=== PATIENT | female | born 1940 | race Caucasian/White ===

== ENCOUNTER 2018-04-06 10:05 | Inpatient (IN) ==
[2018-04-06] MEDS ORDERED: 0.9 % Sodium Chloride 1,000 ML IVC ONE (10:15)
[2018-04-06 10:49] LABS: Hematocrit 33.8 % (35.3-44.9); Hemoglobin 11.3 g/dL (11.5-15.4); Mean Corpuscular HGB Conc 33.4 g/dL (31.6-35.5); Mean Corpuscular Hemoglobin 29.7 pg (28.0-33.3); Mean Corpuscular Volume 88.9 fL (83.0-100.0); Mean Platelet Volume 11.9 fL (9.4-12.4); Platelet Count 208 K/mcL (140-400); Red Cell Distribution Width 12.8 % (11.5-14.5)
[2018-04-06 10:51] LABS: VBG HCO3 21 mEq/L (21-27); VBG PCO2 33 mmHg (41-51); VBG PH 7.41 pH Units (7.32-7.42); VBG PO2 84 mmHg (25-50)
[2018-04-06 10:53] LABS: Estimated Average Glucose 177 mg/dl; Hemoglobin A1C 7.8 %
[2018-04-06] MEDS ORDERED: *HR* HYDROcodone/Acet 5/325 mg TABLET PO ONE (10:54)
[2018-04-06 11:18] LABS: Lymphocytes # 0.6 K/mcL (0.6-4.6); Neutrophils # 9.7 K/mcL (1.6-8.9); Platelet Estimate Normal (Normal)
--- NOTE | 2018-04-06 11:39 | Emergency Department Note ---
Disposition Clinical Impression: Altered mental status, Left shoulder pain, Shoulder subluxation, left, Arthritis of right knee Disposition: Admitted As Inpatient Referrals: NONE,PCP [Primary Care Provider] - Forms: ED Satisfaction Letter, Work/School Release General Adult HPI - General Chief complaint: ED General Medical Stated complaint: Shoulder Pain Time Seen by Provider: 04/06/18 10:13 Source: patient, EMS Limitations: no limitations - History of Present Illness Pain Scale: 10 - Related Data Home Medications Medication Instructions Recorded Confirmed Albuterol Sulfate [Ventolin Hfa] 2 puff IH Q4H PRN 04/06/18 04/06/18 Budesonide/Formoterol 160/4.5 2 puff PO BID 04/06/18 04/06/18 [Symbicort 160/4.5] Esomeprazole Magnesium [Nexium] 40 mg PO DAILY 04/06/18 04/06/18 Insulin ASPART [NovoLOG] 0 unit SQ AD 04/06/18 04/06/18 Lisinopril/Hydrochlorothiazide 1 tab PO DAILY 04/06/18 04/06/18 [Zestoretic 20-25 mg Tablet] Meloxicam [Meloxicam] 15 mg PO DAILY 04/06/18 04/06/18 Methyl Salicylate/Menthol 1 patch TP DAILY PRN MDD N 04/06/18 04/06/18 [Salonpas Patch] Montelukast [Singulair] 10 mg PO DAILY 04/06/18 04/06/18 Multivitamin [One Daily Essential] 1 tab PO DAILY 04/06/18 04/06/18 Tramadol HCl [Ultram] 50 mg PO DAILY 04/06/18 04/06/18 predniSONE [PredniSONE] 60 mg PO DAILY 04/06/18 04/06/18 Allergies Allergy/AdvReac Type Severity Reaction Status Date / Time No Known Allergies Allergy Verified 04/06/18 10:17 Past Medical History - Past Medical History Medical history: Reports: arthritis, asthma, diabetes, hypertension Psychiatric history: Reports: no psych history - Social History Smoking Status: Never smoker Smokeless Tobacco Status: No Alcohol use: Reports: none Drug use: Reports: none Physical Exam - General Limitations: no limitations General appearance: alert, in no apparent distress Course Vital Signs Temperature 99.4 F 04/06/18 10:11 Pulse Rate 115 04/06/18 10:11 Respiratory Rate 18 04/06/18 10:11 Blood Pressure 124/79 04/06/18 10:11 O2 Sat by Pulse Oximetry 97 04/06/18 10:11 Temperature 99.4 F 04/06/18 10:11 Pulse Rate 114 04/06/18 13:37 Respiratory Rate 16 04/06/18 13:37 Blood Pressure 136/73 04/06/18 13:37 O2 Sat by Pulse Oximetry 97 04/06/18 13:37 Oxygen Delivery Oxygen Delivery Room Air Medical Decision Making - Lab Data Result diagrams: 04/06/18 10:31 04/06/18 10:31 Lab Results 04/06/18 04/06/18 04/06/18 Range/Units 10:31 10: 10:31 WBC 10.3 (4.3-11.1) K/mcL RBC 3.80 L (3.82-4.97) M/mcL Hgb 11.3 L (11.5-15.4) g/dL Hct 33.8 L (35.3-44.9) % MCV 88.9 (83.0-100.0) fL MCH 29.7 (28.0-33.3) pg MCHC 33.4 (31.6-35.5) g/dL RDW 12.8 (11.5-14.5) % Plt Count 208 (140-400) K/mcL MPV 11.9 (9.4-12.4) fL Immature Gran % Test Not Performed Seg Neutrophils % 76.0 % Band Neutrophils % 18.0 H (0-4) % Lymphocytes % 6.0 % Monocytes % Test Not Performed Eosinophils % Test Not Performed Basophils % Test Not Performed Neutrophils # 9.7 H (1.6-8.9) K/mcL Lymphocytes # 0.6 (0.6-4.6) K/mcL Monocytes # Test Not Performed Eosinophils # Test Not Performed Basophils # Test Not Performed Platelet Estimate Normal (Normal) VBG pH (7.32-7.42) pH Units VBG pCO2 (41-51) mmHg VBG pO2 (25-50) mmHg VBG HCO3 (21-27) mEq/L Sodium (136-145) mEq/L Potassium (3.5-5.1) mEq/L Chloride (98-107) mEq/L Carbon Dioxide (23-29) mEq/L BUN (8-23) mg/dL Creatinine (0.60-1.20) mg/dL Est GFR ( Amer) (> 60) Est GFR (Non-Af Amer) (> 60) BUN/Creatinine Ratio (6-26) Glucose (70-105) mg/dL Est Mean Plasma Glucose 177 mg/dl Hemoglobin A1c 7.8 H ( - 5.6) % Calculated Osmolality (280-300) Calcium (8.6-10.3) mg/dL Total Bilirubin (0.3-1.0) mg/dL AST (13-39) Units/L ALT (7-52) Units/L Alkaline Phosphatase (34-104) Units/L Ammonia (16-53) mcmol/L Troponin I (< 0.04) ng/mL Serum Total Protein (6.4-8.9) g/dL Albumin (3.5-5.7) g/dL Globulin (2.4-3.5) g/dL Albumin/Globulin Ratio (1.1-2.2) Beta-Hydroxybutyric Acd 0.17 (0.02-0.27) mmol/L TSH (0.340-5.600) mcIU/mL Ur Specimen Adequacy Urine Color (Yellow) Urine Clarity (Clear) Urine pH (5.0-8.0) pH Units Ur Specific Garrison (1.010-1.025) Urine Protein (Neg-Trace) mg/dL Urine Glucose (UA) (Normal) mg/dL Urine Ketones (Negative) mg/dL Urine Blood (Negative) Urine Nitrite (Negative) Urine Bilirubin (Negative) Urine Urobilinogen (Normal) mg/dL Ur Leukocyte Esterase (Negative) Urine Microscopic RBC (0-3) per hpf Urine Microscopic WBC (0-3) per hpf Ur Squamous Epith Cells (None-Few) per lpf Urine Bacteria (None-Few) per hpf Hyaline Casts Ur Culture Indicated? (NO) Urine Opiates Screen (Djrvbu=908) ng/mL Ur Barbiturates Screen (Qqanbq=718) ng/mL Ur Phencyclidine Scrn (Cutoff=25) ng/mL Ur Amphetamines Screen (Wbtync=4654) ng/mL U Benzodiazepines Scrn (Vcyrwo=633) ng/mL Urine Cocaine Screen (Cutoff= 300) ng/mL U Marijuana (THC) Screen (Cutoff = 50) ng/mL Ur Drug Screen Interp Ethyl Alcohol (Less than 10) mg/dL 04/06/18 04/06/18 04/06/18 Range/Units 10:31 10:31 10:45 WBC (4.3-11.1) K/mcL RBC (3.82-4.97) M/mcL Hgb (11.5-15.4) g/dL Hct (35.3-44.9) % MCV (83.0-100.0) fL MCH (28.0-33.3) pg MCHC (31.6-35.5) g/dL RDW (11.5-14.5) % Plt Count (140-400) K/mcL MPV (9.4-12.4) fL Immature Gran % Seg Neutrophils % % Band Neutrophils % (0-4) % Lymphocytes % % Monocytes % Eosinophils % Basophils % Neutrophils # (1.6-8.9) K/mcL Lymphocytes # (0.6-4.6) K/mcL Monocytes # Eosinophils # Basophils # Platelet Estimate (Normal) VBG pH 7.41 (7.32-7.42) pH Units VBG pCO2 33 L (41-51) mmHg VBG pO2 84 H (25-50) mmHg VBG HCO3 21 (21-27) mEq/L Sodium 128 L (136-145) mEq/L Potassium 3.6 (3.5-5.1) mEq/L Chloride 93 L (98-107) mEq/L Carbon Dioxide 21 L (23-29) mEq/L BUN 33 H (8-23) mg/dL Creatinine 0.88 (0.60-1.20) mg/dL Est GFR ( Amer) > 60 (> 60) Est GFR (Non-Af Amer) > 60 (> 60) BUN/Creatinine Ratio 38 H (6-26) Glucose 224 H (70-105) mg/dL Est Mean Plasma Glucose mg/dl Hemoglobin A1c ( - 5.6) % Calculated Osmolality 280 (280-300) Calcium 9.1 (8.6-10.3) mg/dL Total Bilirubin 0.5 (0.3-1.0) mg/dL AST 18 (13-39) Units/L ALT 15 (7-52) Units/L Alkaline Phosphatase 108 H (34-104) Units/L Ammonia 28 (16-53) mcmol/L Troponin I < 0.03 (< 0.04) ng/mL Serum Total Protein 6.7 (6.4-8.9) g/dL Albumin 3.1 L (3.5-5.7) g/dL Globulin 3.6 H (2.4-3.5) g/dL Albumin/Globulin Ratio 0.9 L (1.1-2.2) Beta-Hydroxybutyric Acd (0.02-0.27) mmol/L TSH 0.248 L (0.340-5.600) mcIU/mL Ur Specimen Adequacy Urine Color (Yellow) Urine Clarity (Clear) Urine pH (5.0-8.0) pH Units Ur Specific Garrison (1.010-1.025) Urine Protein (Neg-Trace) mg/dL Urine Glucose (UA) (Normal) mg/dL Urine Ketones (Negative) mg/dL Urine Blood (Negative) Urine Nitrite (Negative) Urine Bilirubin (Negative) Urine Urobilinogen (Normal) mg/dL Ur Leukocyte Esterase (Negative) Urine Microscopic RBC (0-3) per hpf Urine Microscopic WBC (0-3) per hpf Ur Squamous Epith Cells (None-Few) per lpf Urine Bacteria (None-Few) per hpf Hyaline Casts Ur Culture Indicated? (NO) Urine Opiates Screen (Upfxyp=083) ng/mL Ur Barbiturates Screen (Rddylj=154) ng/mL Ur Phencyclidine Scrn (Cutoff=25) ng/mL Ur Amphetamines Screen (Ctztyp=4523) ng/mL U Benzodiazepines Scrn (Aaqhuo=023) ng/mL Urine Cocaine Screen (Cutoff= 300) ng/mL U Marijuana (THC) Screen (Cutoff = 50) ng/mL Ur Drug Screen Interp Ethyl Alcohol < 10 (Less than 10) mg/dL 04/06/18 04/06/18 Range/Units 11:54 11:55 WBC (4.3-11.1) K/mcL RBC (3.82-4.97) M/mcL Hgb (11.5-15.4) g/dL Hct (35.3-44.9) % MCV (83.0-100.0) fL MCH (28.0-33.3) pg MCHC (31.6-35.5) g/dL RDW (11.5-14.5) % Plt Count (140-400) K/mcL MPV (9.4-12.4) fL Immature Gran % Seg Neutrophils % % Band Neutrophils % (0-4) % Lymphocytes % % Monocytes % Eosinophils % Basophils % Neutrophils # (1.6-8.9) K/mcL Lymphocytes # (0.6-4.6) K/mcL Monocytes # Eosinophils # Basophils # Platelet Estimate (Normal) VBG pH (7.32-7.42) pH Units VBG pCO2 (41-51) mmHg VBG pO2 (25-50) mmHg VBG HCO3 (21-27) mEq/L Sodium (136-145) mEq/L Potassium (3.5-5.1) mEq/L Chloride (98-107) mEq/L Carbon Dioxide (23-29) mEq/L BUN (8-23) mg/dL Creatinine (0.60-1.20) mg/dL Est GFR ( Amer) (> 60) Est GFR (Non-Af Amer) (> 60) BUN/Creatinine Ratio (6-26) Glucose (70-105) mg/dL Est Mean Plasma Glucose mg/dl Hemoglobin A1c ( - 5.6) % Calculated Osmolality (280-300) Calcium (8.6-10.3) mg/dL Total Bilirubin (0.3-1.0) mg/dL AST (13-39) Units/L ALT (7-52) Units/L Alkaline Phosphatase (34-104) Units/L Ammonia (16-53) mcmol/L Troponin I (< 0.04) ng/mL Serum Total Protein (6.4-8.9) g/dL Albumin (3.5-5.7) g/dL Globulin (2.4-3.5) g/dL Albumin/Globulin Ratio (1.1-2.2) Beta-Hydroxybutyric Acd (0.02-0.27) mmol/L TSH (0.340-5.600) mcIU/mL Ur Specimen Adequacy See below A Urine Color Yellow (Yellow) Urine Clarity Clear (Clear) Urine pH 5.5 (5.0-8.0) pH Units Ur Specific Garrison 1.014 (1.010-1.025) Urine Protein 30 H (Neg-Trace) mg/dL Urine Glucose (UA) 250 H (Normal) mg/dL Urine Ketones Negative (Negative) mg/dL Urine Blood Small H (Negative) Urine Nitrite Negative (Negative) Urine Bilirubin Negative (Negative) Urine Urobilinogen Normal (Normal) mg/dL Ur Leukocyte Esterase Negative (Negative) Urine Microscopic RBC 5-15 H (0-3) per hpf Urine Microscopic WBC 0-3 (0-3) per hpf Ur Squamous Epith Cells Many H (None-Few) per lpf Urine Bacteria None Seen (None-Few) per hpf Hyaline Casts Test Not Performed Ur Culture Indicated? NO (NO) Urine Opiates Screen Positive H (Grzlpe=922) ng/mL Ur Barbiturates Screen Negative (Wcoobw=235) ng/mL Ur Phencyclidine Scrn Negative (Cutoff=25) ng/mL Ur Amphetamines Screen Negative (Mihrcb=0104) ng/mL U Benzodiazepines Scrn Negative (Tveyjy=919) ng/mL Urine Cocaine Screen Negative (Cutoff= 300) ng/mL U Marijuana (THC) Screen Negative (Cutoff = 50) ng/mL Ur Drug Screen Interp See Below Ethyl Alcohol (Less than 10) mg/dL Attestation Statement - Attestation Attestation: Resident Attestation: I examined this patient and my medical decision making was reviewed with the Resident Physician. I agree with the documented findings, disposition and treatment plan as described except to the extent set forth below. We independently had [id number] contact with the patient. Resident Dr. Jameson. Past medical history of diabetes, hypertension, arthritis, asthma presenting today for evaluation of multiple complaints. Patient family has complaints of intermittent altered mental status with the patient rambling on about sometimes noncoherent sentences. The patient will have her episodes resolve and seemed to be doing a lot better. The patient was seen yesterday at [facility] where she was evaluated secondary to left shoulder and right knee pain. The patient has significant arthritis which she has been evaluated and treated for. She states that she wanted to get some yard work done and was pulling a lot of weeds. Secondary to pain that she typically has in her right shoulder and left knee she was using her left shoulder and right knee to compensate. The patient states that she felt great during the day and during the activities but shortly after began having significant amounts of pain. She has requested multiple doses of pain medication while in the emergency department and it relates to fluctuations in pain from the left arm to the right knee. She complains of no other episodes of pain. She has not had fevers or chills and she has not been breaking out in sweats. At this time there is concern for an intra-articular foreign body within the right knee. Unknown how long this is been there. Likely contributing to her overall pain symptoms. Left arm has a subluxation which is unknown the chronicity. Patient does have significant muscle spasm to the left upper extremity. On manipulation with distracting force as well as external rotation she has worsening spasm of the biceps muscle causing pain to radiate down into her fingers. The patient did undergo blood work which does show a mild left shift of neutrophils. She has been on steroids. The patient's blood work otherwise shows a mild hyponatremia as well as an elevated BUN/creatinine ratio at 38. TSH of 0.248. Urinalysis does show small amounts of blood but this was a catheter sample. Dr. Jameson did discuss with orthopedics in regards to the knee foreign body as well as left shoulder subluxation and significant arthritis. Patient will be evaluated by orthopedics within the hospital. I have discussed with both patient and family at bedside. All questions answered at this time.
[2018-04-06 11:43] LABS: Alanine Aminotransferase 15 Units/L (7-52); Albumin 3.1 g/dL (3.5-5.7); Albumin/Globulin Ratio 0.9 (1.1-2.2); Alkaline Phosphatase 108 Units/L (34-104); Aspartate Amino Transferase 18 Units/L (13-39); BUN/Creatinine Ratio 38 (6-26); Bilirubin,Total 0.5 mg/dL (0.3-1.0); Blood Urea Nitrogen 33 mg/dL (8-23); Calcium 9.1 mg/dL (8.6-10.3); Carbon Dioxide 21 mEq/L (23-29); Chloride 93 mEq/L (98-107); Ethanol < 10 mg/dL (Less than 10); Globulin 3.6 g/dL (2.4-3.5); Glucose 224 mg/dL (70-105); Osmolality,Calculated 280 (280-300); Potassium 3.6 mEq/L (3.5-5.1); Sodium 128 mEq/L (136-145); Total Protein 6.7 g/dL (6.4-8.9); Troponin I < 0.03 ng/mL (< 0.04); eGFR For Non-African Americans > 60 (> 60)
[2018-04-06 11:57] LABS: Thyroid Stimulating Hormone 0.248 mcIU/mL (0.340-5.600)
[2018-04-06 12:06] LABS: Bilirubin,Urine Negative (Negative); Blood,Urine Small (Negative); Color,Urine Yellow (Yellow); Glucose,Urine (UA) 250 mg/dL (Normal); Ketones,Urine Negative (Negative); Leukocyte Esterase,Urine Negative (Negative); Nitrite,Urine Negative (Negative); PH,Urine 5.5 pH Units (5.0-8.0); Protein,Urine 30 mg/dL (Neg-Trace); Specific Gravity,Urine 1.014 (1.010-1.025); Urobilinogen,Urine Normal (Normal)
[2018-04-06 12:08] LABS: Bacteria,Urine None Seen per hpf (None-Few); Squamous Epithelial Cell,Urine Many per lpf (None-Few); WBC,Urine 0-3 per hpf (0-3)
[2018-04-06 12:10] LABS: Clarity,Urine Clear (Clear)
[2018-04-06 12:26] LABS: Amphetamine Screen,Urine Negative ng/mL (Cutoff=1000); Barbiturate Screen,Urine Negative ng/mL (Cutoff=200); Benzodiazepines Screen,Urine Negative ng/mL (Cutoff=200); Cannabinoid Screen,Urine Negative ng/mL (Cutoff = 50); Cocaine Screen,Urine Negative ng/mL (Cutoff= 300); Opiate Screen,Urine Positive ng/mL (Cutoff=300); Phencyclidine Screen,Urine Negative ng/mL (Cutoff=25)
[2018-04-06] MEDS ORDERED: *HR* FentaNYL (PF) 100 MCG/2 ML VIAL IVP ONE ×2 (12:42→15:41)
[2018-04-06] MEDS ORDERED: *HR* Morphine 2 MG/ML SYRINGE IVP ONE (13:28)
--- NOTE | 2018-04-06 13:46 | Emergency Department Note ---
Disposition Clinical Impression: Arthritis of right knee Altered mental status Qualifiers: Altered mental status type: unspecified Qualified Code(s): R41.82 - Altered mental status, unspecified Left shoulder pain Qualifiers: Chronicity: unspecified Qualified Code(s): M25.512 - Pain in left shoulder Shoulder subluxation, left Qualifiers: Encounter type: initial encounter Qualified Code(s): S43.002A - Unspecified subluxation of left shoulder joint, initial encounter Disposition: Admitted As Inpatient Condition: Fair Forms: ED Satisfaction Letter, Work/School Release Altered Mental Status HPI - General Chief Complaint: ED General Medical Stated Complaint: Shoulder Pain Time Seen by Provider: 04/06/18 10:13 Source: patient, EMS Mode of arrival: EMS Limitations: no limitations Nursing Notes Reviewed: Yes Vital Signs Reviewed: Yes - History of Present Illness HPI Narrative: 77-year-old female history of type 1 diabetes on an insulin pump who presents to the ER via EMS due to altered mental status. Report is that the patient was outside at the beginning of the week bleeding. She was using mostly her left arm. She was seen at another facility on Saturday where she was given prednisone. She took 4 days of that. She was brought in today for altered mental status. The patient is alert and oriented 3. She does require frequent redirection. She is repetitive in her statements as well. She reports pain to her left shoulder as well as her right knee. She denies any trauma. Reports she is "eaten up with arthritis" family at bedside reports that she has been confused at home and is usually self-sufficient. She has been to the point where she cannot walk on her own. No other complaints. MD complaint: altered mental status Onset (ago): day(s) Timing confirmed by: family member Context: other (Recent steroid use) Associated symptoms: Reports: nausea/vomiting (No vomiting), other (Left shoulder pain, right knee pain). Denies: chest pain, fever - Related Data Home Medications Medication Instructions Recorded Confirmed Albuterol Sulfate [Ventolin Hfa] 2 puff IH Q4H PRN 04/06/18 04/06/18 Budesonide/Formoterol 160/4.5 2 puff PO BID 04/06/18 04/06/18 [Symbicort 160/4.5] Esomeprazole Magnesium [Nexium] 40 mg PO DAILY 04/06/18 04/06/18 Insulin ASPART [NovoLOG] 0 unit SQ AD 04/06/18 04/06/18 Lisinopril/Hydrochlorothiazide 1 tab PO DAILY 04/06/18 04/06/18 [Zestoretic 20-25 mg Tablet] Meloxicam [Meloxicam] 15 mg PO DAILY 04/06/18 04/06/18 Methyl Salicylate/Menthol 1 patch TP DAILY PRN MDD N 04/06/18 04/06/18 [Salonpas Patch] Montelukast [Singulair] 10 mg PO DAILY 04/06/18 04/06/18 Multivitamin [One Daily Essential] 1 tab PO DAILY 04/06/18 04/06/18 Tramadol HCl [Ultram] 50 mg PO DAILY 04/06/18 04/06/18 predniSONE [PredniSONE] 60 mg PO DAILY 04/06/18 04/06/18 Allergies Allergy/AdvReac Type Severity Reaction Status Date / Time No Known Allergies Allergy Verified 04/06/18 10:17 All systems ED: reviewed and negative except as stated. Constitutional: Denies: fever Cardiovascular: Denies: chest pain Respiratory: Denies: dyspnea Gastrointestinal: Reports: nausea. Denies: abdominal pain, vomiting Genitourinary: Denies: dysuria, hematuria Musculoskeletal: Reports: other (Left shoulder pain, right knee pain) Neurological: Denies: numbness Past Medical History - Past Medical History Attestation: Yes The following information was validated with the patient. Source: patient, obtained from family Medical history: Reports: arthritis, asthma, diabetes, hypertension Psychiatric history: Reports: no psych history - Social History Smoking Status: Never smoker Smokeless Tobacco Status: No Alcohol use: Reports: none Drug use: Reports: none Physical Exam - General Limitations: no limitations General appearance: alert, in no apparent distress - Head Head exam: atraumatic, normocephalic - Eye Eye exam: Present: normal appearance - ENT ENT exam: normal exam - Neck Neck exam: Present: normal inspection - Chest Chest inspection: Present: normal inspection, symmetric chest wall rise - Respiratory Respiratory exam: Present: normal lung sounds bilaterally - Cardiovascular Cardiovascular exam: Present: normal rhythm, tachycardia, normal heart sounds - Abdominal Exam Abdominal exam: Present: soft, Non-Tender. Absent: tenderness, distention, rigidity - Extremities Exam Extremities exam: Present: normal inspection - Expanded Upper Extremity Exam Shoulder exam: Present: normal inspection, tenderness (There is tenderness to the anterior and lateral aspects of the left shoulder. There are no overlying soft tissue changes or erythema.). Absent: swelling, erythema Arm exam: Present: normal inspection Elbow exam: Present: normal inspection Forearm/Wrist exam: Present: normal inspection, full ROM Hand exam: Present: normal inspection, full ROM - Expanded Lower Extremity Exam Hip/Pelvis exam: Present: normal inspection, full ROM Upper leg exam: Present: normal inspection, full ROM Knee exam: Present: normal inspection, tenderness (There is diffuse tenderness to the right knee without overlying soft tissue changes.) Lower leg exam: Present: normal inspection Ankle exam: Present: normal inspection, full ROM Foot/toe exam: Present: normal inspection, full ROM - Neurological Exam Neurological exam: Present: alert, oriented X3, other (GCS 15. No focal deficits. She does not move her left shoulder secondary to pain. Right knee is limited in flexion and extension.) - Skin Skin exam: Present: warm, dry Course Course Narrative: Patient seen and examined. Vital signs reviewed. DKA versus steroid psychosis or other etiology for Ultram mental status. She does have repetitive questioning and statements here. Plan for head CT, EKG, chest x-ray, labs to evaluate for DKA, urinalysis, imaging of the right knee. - Reevaluation(s) Reevaluation #1: Discussed results of imaging labs with the patient and family present. No improvement with pain after oral and IV analgesics. Patient ordered morphine for intractable pain. Also discussed orthopedic recommendations and that she would be admitted. Patient and family in agreement. - Consultations Consultation #1: I spoke with the on-call orthopedic surgeon. Discussed the patient's history as well as imaging and concerns. They are agreeable to see the patient in consultation. Vital Signs Temperature 99.4 F 04/06/18 10:11 Pulse Rate 115 04/06/18 10:11 Respiratory Rate 18 04/06/18 10:11 Blood Pressure 124/79 04/06/18 10:11 O2 Sat by Pulse Oximetry 97 04/06/18 10:11 Temperature 99.4 F 04/06/18 10:11 Pulse Rate 114 04/06/18 13:37 Respiratory Rate 16 04/06/18 13:37 Blood Pressure 136/73 04/06/18 13:37 O2 Sat by Pulse Oximetry 97 04/06/18 13:37 Oxygen Delivery Oxygen Delivery Room Air Altered Mental Status - MDM Narrative Medical decision making narrative: 77-year-old female presenting due to altered mental status, left shoulder pain and right knee pain. She is alert and oriented 3. She does require frequent redirection. She is not in DKA. Potential etiologies would include steroid psychosis with recent prednisone use. She demonstrates severe arthritis of her left shoulder and right knee. She does have subluxation and effusion of her left shoulder felt to be more consistent with overuse from her recent weeding in her garden. There are no overlying skin changes, fevers, leukocytosis. Right knee has a loose body. Case discussed with orthopedics. Patient given IV fluids, multiple doses of pain medication. Admitted to the hospitalist service. - Lab Data Lab results reviewed: Yes I reviewed the patient's lab results. Result diagrams: 04/06/18 10:31 04/06/18 10:31 Lab Results 04/06/18 04/06/18 04/06/18 Range/Units 10:31 10:31 10:31 WBC 10.3 (4.3-11.1) K/mcL RBC 3.80 L (3.82-4.97) M/mcL Hgb 11.3 L (11.5-15.4) g/dL Hct 33.8 L (35.3-44.9) % MCV 88.9 (83.0-100.0) fL MCH 29.7 (28.0-33.3) pg MCHC 33.4 (31.6-35.5) g/dL RDW 12.8 (11.5-14.5) % Plt Count 208 (140-400) K/mcL MPV 11.9 (9.4-12.4) fL Immature Gran % Test Not Performed Seg Neutrophils % 76.0 % Band Neutrophils % 18.0 H (0-4) % Lymphocytes % 6.0 % Monocytes % Test Not Performed Eosinophils % Test Not Performed Basophils % Test Not Performed Neutrophils # 9.7 H (1.6-8.9) K/mcL Lymphocytes # 0.6 (0.6-4.6) K/mcL Monocytes # Test Not Performed Eosinophils # Test Not Performed Basophils # Test Not Performed Platelet Estimate Normal (Normal) VBG pH (7.32-7.42) pH Units VBG pCO2 (41-51) mmHg VBG pO2 (25-50) mmHg VBG HCO3 (21-27) mEq/L Sodium (136-145) mEq/L Potassium (3.5-5.1) mEq/L Chloride (98-107) mEq/L Carbon Dioxide (23-29) mEq/L BUN (8-23) mg/dL Creatinine (0.60-1.20) mg/dL Est GFR ( Amer) (> 60) Est GFR (Non-Af Amer) (> 60) BUN/Creatinine Ratio (6-26) Glucose (70-105) mg/dL Est Mean Plasma Glucose 177 mg/dl Hemoglobin A1c 7.8 H ( - 5.6) % Calculated Osmolality (280-300) Calcium (8.6-10.3) mg/dL Total Bilirubin (0.3-1.0) mg/dL AST (13-39) Units/L ALT (7-52) Units/L Alkaline Phosphatase (34-104) Units/L Ammonia (16-53) mcmol/L Troponin I (< 0.04) ng/mL Serum Total Protein (6.4-8.9) g/dL Albumin (3.5-5.7) g/dL Globulin (2.4-3.5) g/dL Albumin/Globulin Ratio (1.1-2.2) Beta-Hydroxybutyric Acd 0.17 (0.02-0.27) mmol/L TSH (0.340-5.600) mcIU/mL Ur Specimen Adequacy Urine Color (Yellow) Urine Clarity (Clear) Urine pH (5.0-8.0) pH Units Ur Specific [place] (1.010-1.025) Urine Protein (Neg-Trace) mg/dL Urine Glucose (UA) (Normal) mg/dL Urine Ketones (Negative) mg/dL Urine Blood (Negative) Urine Nitrite (Negative) Urine Bilirubin (Negative) Urine Urobilinogen (Normal) mg/dL Ur Leukocyte Esterase (Negative) Urine Microscopic RBC (0-3) per hpf Urine Microscopic WBC (0-3) per hpf Ur Squamous Epith Cells (None-Few) per lpf Urine Bacteria (None-Few) per hpf Hyaline Casts Ur Culture Indicated? (NO) Urine Opiates Screen (Zzuldj=781) ng/mL Ur Barbiturates Screen (Oihhfq=487) ng/mL Ur Phencyclidine Scrn (Cutoff=25) ng/mL Ur Amphetamines Screen (Wkacko=6665) ng/mL U Benzodiazepines Scrn (Yzzdkq=950) ng/mL Urine Cocaine Screen (Cutoff= 300) ng/mL U Marijuana (THC) Screen (Cutoff = 50) ng/mL Ur Drug Screen Interp Ethyl Alcohol (Less than 10) mg/dL 04/06/18 04/06/18 04/06/18 Range/Units 10:31 10:31 10:45 WBC (4.3-11.1) K/mcL RBC (3.82-4.97) M/mcL Hgb (11.5-15.4) g/dL Hct (35.3-44.9) % MCV (83.0-100.0) fL MCH (28.0-33.3) pg MCHC (31.6-35.5) g/dL RDW (11.5-14.5) % Plt Count (140-400) K/mcL MPV (9.4-12.4) fL Immature Gran % Seg Neutrophils % % Band Neutrophils % (0-4) % Lymphocytes % % Monocytes % Eosinophils % Basophils % Neutrophils # (1.6-8.9) K/mcL Lymphocytes # (0.6-4.6) K/mcL Monocytes # Eosinophils # Basophils # Platelet Estimate (Normal) VBG pH 7.41 (7.32-7.42) pH Units VBG pCO2 33 L (41-51) mmHg VBG pO2 84 H (25-50) mmHg VBG HCO3 21 (21-27) mEq/L Sodium 128 L (136-145) mEq/L Potassium 3.6 (3.5-5.1) mEq/L Chloride 93 L (98-107) mEq/L Carbon Dioxide 21 L (23-29) mEq/L BUN 33 H (8-23) mg/dL Creatinine 0.88 (0.60-1.20) mg/dL Est GFR ( Amer) > 60 (> 60) Est GFR (Non-Af Amer) > 60 (> 60) BUN/Creatinine Ratio 38 H (6-26) Glucose 224 H (70-105) mg/dL Est Mean Plasma Glucose mg/dl Hemoglobin A1c ( - 5.6) % Calculated Osmolality 280 (280-300) Calcium 9.1 (8.6-10.3) mg/dL Total Bilirubin 0.5 (0.3-1.0) mg/dL AST 18 (13-39) Units/L ALT 15 (7-52) Units/L Alkaline Phosphatase 108 H (34-104) Units/L Ammonia 28 (16-53) mcmol/L Troponin I < 0.03 (< 0.04) ng/mL Serum Total Protein 6.7 (6.4-8.9) g/dL Albumin 3.1 L (3.5-5.7) g/dL Globulin 3.6 H (2.4-3.5) g/dL Albumin/Globulin Ratio 0.9 L (1.1-2.2) Beta-Hydroxybutyric Acd (0.02-0.27) mmol/L TSH 0.248 L (0.340-5.600) mcIU/mL Ur Specimen Adequacy Urine Color (Yellow) Urine Clarity (Clear) Urine pH (5.0-8.0) pH Units Ur Specific [place] (1.010-1.025) Urine Protein (Neg-Trace) mg/dL Urine Glucose (UA) (Normal) mg/dL Urine Ketones (Negative) mg/dL Urine Blood (Negative) Urine Nitrite (Negative) Urine Bilirubin (Negative) Urine Urobilinogen (Normal) mg/dL Ur Leukocyte Esterase (Negative) Urine Microscopic RBC (0-3) per hpf Urine Microscopic WBC (0-3) per hpf Ur Squamous Epith Cells (None-Few) per lpf Urine Bacteria (None-Few) per hpf Hyaline Casts Ur Culture Indicated? (NO) Urine Opiates Screen (Cdvqqv=694) ng/mL Ur Barbiturates Screen (Glxmuq=774) ng/mL Ur Phencyclidine Scrn (Cutoff=25) ng/mL Ur Amphetamines Screen (Axdago=5973) ng/mL U Benzodiazepines Scrn (Ecpyuq=454) ng/mL Urine Cocaine Screen (Cutoff= 300) ng/mL U Marijuana (THC) Screen (Cutoff = 50) ng/mL Ur Drug Screen Interp Ethyl Alcohol < 10 (Less than 10) mg/dL 04/06/18 04/06/18 Range/Units 11:54 11:55 WBC (4.3-11.1) K/mcL RBC (3.82-4.97) M/mcL Hgb (11.5-15.4) g/dL Hct (35.3-44.9) % MCV (83.0-100.0) fL MCH (28.0-33.3) pg MCHC (31.6-35.5) g/dL RDW (11.5-14.5) % Plt Count (140-400) K/mcL MPV (9.4-12.4) fL Immature Gran % Seg Neutrophils % % Band Neutrophils % (0-4) % Lymphocytes % % Monocytes % Eosinophils % Basophils % Neutrophils # (1.6-8.9) K/mcL Lymphocytes # (0.6-4.6) K/mcL Monocytes # Eosinophils # Basophils # Platelet Estimate (Normal) VBG pH (7.32-7.42) pH Units VBG pCO2 (41-51) mmHg VBG pO2 (25-50) mmHg VBG HCO3 (21-27) mEq/L Sodium (136-145) mEq/L Potassium (3.5-5.1) mEq/L Chloride (98-107) mEq/L Carbon Dioxide (23-29) mEq/L BUN (8-23) mg/dL Creatinine (0.60-1.20) mg/dL Est GFR ( Amer) (> 60) Est GFR (Non-Af Amer) (> 60) BUN/Creatinine Ratio (6-26) Glucose (70-105) mg/dL Est Mean Plasma Glucose mg/dl Hemoglobin A1c ( - 5.6) % Calculated Osmolality (280-300) Calcium (8.6-10.3) mg/dL Total Bilirubin (0.3-1.0) mg/dL AST (13-39) Units/L ALT (7-52) Units/L Alkaline Phosphatase (34-104) Units/L Ammonia (16-53) mcmol/L Troponin I (< 0.04) ng/mL Serum Total Protein (6.4-8.9) g/dL Albumin (3.5-5.7) g/dL Globulin (2.4-3.5) g/dL Albumin/Globulin Ratio (1.1-2.2) Beta-Hydroxybutyric Acd (0.02-0.27) mmol/L TSH (0.340-5.600) mcIU/mL Ur Specimen Adequacy See below A Urine Color Yellow (Yellow) Urine Clarity Clear (Clear) Urine pH 5.5 (5.0-8.0) pH Units Ur Specific [place] 1.014 (1.010-1.025) Urine Protein 30 H (Neg-Trace) mg/dL Urine Glucose (UA) 250 H (Normal) mg/dL Urine Ketones Negative (Negative) mg/dL Urine Blood Small H (Negative) Urine Nitrite Negative (Negative) Urine Bilirubin Negative (Negative) Urine Urobilinogen Normal (Normal) mg/dL Ur Leukocyte Esterase Negative (Negative) Urine Microscopic RBC 5-15 H (0-3) per hpf Urine Microscopic WBC 0-3 (0-3) per hpf Ur Squamous Epith Cells Many H (None-Few) per lpf Urine Bacteria None Seen (None-Few) per hpf Hyaline Casts Test Not Performed Ur Culture Indicated? NO (NO) Urine Opiates Screen Positive H (Cuigqd=835) ng/mL Ur Barbiturates Screen Negative (Vchoxc=908) ng/mL Ur Phencyclidine Scrn Negative (Cutoff=25) ng/mL Ur Amphetamines Screen Negative (Uuwfoj=7722) ng/mL U Benzodiazepines Scrn Negative (Paxnow=222) ng/mL Urine Cocaine Screen Negative (Cutoff= 300) ng/mL U Marijuana (THC) Screen Negative (Cutoff = 50) ng/mL Ur Drug Screen Interp See Below Ethyl Alcohol (Less than 10) mg/dL - Radiology Data Radiology results reviewed: Yes I reviewed the patient's radiology results. Chest X-Ray 04/06/18 10:13 IMPRESSION: No acute process in the lungs. Severe bilateral glenohumeral joint osteoarthritis with likely left glenohumeral joint effusion. D/ / Daniel Rockwell MD / Daniel Rockwell MD Interpreting Provider: Daniel Rockwell MD Head CT 04/06/18 10:14 IMPRESSION: 1. No acute intracranial process identified. 2. Mild chronic small vessel ischemic changes. D/ / Donavan Wahl MD / Donavan Wahl MD Interpreting Provider: Donavan Wahl MD Knee X-Ray 04/06/18 11:20 IMPRESSION: Tricompartmental joint space narrowing with marginal osteophytes as well as tricompartmental chondrocalcinosis. This may represent osteoarthritis and/or CPPD arthropathy. Large intra-articular loose body measuring up to 20 mm in size in the lateral suprapatellar bursa. D/ / 04/06/2018 12:05:59 Daniel Rockwell MD / donna Interpreting Provider: Daniel Rockwell MD - EKG Data EKG attestation: Yes I reviewed and interpreted this EKG. EKG results narrative: EKGwas a paced rhythm [address] elevations or depressions. No significant changes from previous EKG dated 04/02/18. TPA Checklist - LKW: 3-4.5 hrs Add. Warnings/Precautions Patient/family understanding: The patient/family members have been counseled and understood the risk, benefit , and alternatives of treatment. S.B.AJesika - Gerri.Bonnie Situation: Demographics, MOA Background: Presenting Complaint, Relevant PMH, Meds, & Allergies Assessment: Course and respsone to treatment, Exam Concerns, Patient/Family Expectation, Pertinant Lab Results Recommendation: Barrier(s) to disposition, Recommendation based on pending studies, treatments, or consults S.B.AJesika Report Given to: Dr. Yang Sanchez Repor Time: 13:54
[2018-04-06] MEDS ORDERED: Naloxone 0.4 MG/ML INJ IVP PRN (14:34)
--- NOTE | 2018-04-06 15:49 | Internal Med History&Physical ---
Date of Encounter: 04/06/18 Time of Encounter: 15:00 Internal Medicine - H&P: HPI Chief complaint: left shoulder pain and right knee pain since saturday History of present illness: Ms. Mckeon is a 77 year old female with pmh of arthritis, hypertension, type 1 diabetes presenting with complaints of severe left shoulder and right knee pain since saturday. Patient complains of history of arthritis for which she has received steroid injections and been relatively fine up until the last 6 months. She loves gardening and has begun to have progressively worsening pain in her joints. She says since saturday, she has barely been able to work or do any physical activity without being in severe pain. She went to the ER on saturday where she got some prednisone and po pain meds that haven't helped with her pain. She has been in excruciating pain today and is unable to move and that's why she came to the ER. In the ER a chest xray showed left shoulder joint subluxation and severe right knee arthritis. family also notes patient has had intermittent episodes of confusion. A CT head was done which was negative Past Med Surg Social Fam HX - Past Medical History Medical history: arthritis, asthma, diabetes, hypertension Psychiatric history: no psych history - Past Surgical History Additional surgical history: skin cancer removed - Social History Smoking Status: Never smoker Smokeless Tobacco Status: No Alcohol use: none Drug use: none Internal Medicine - H&P: Meds Albuterol Sulfate [Ventolin Hfa] 2 puff IH Q4H PRN 04/06/18 [History] Budesonide/Formoterol 160/4.5 [Symbicort 160/4.5] 2 puff PO BID 04/06/18 [ History] Esomeprazole Magnesium [Nexium] 40 mg PO DAILY 04/06/18 [History] Insulin ASPART [NovoLOG] 0 unit SQ AD 04/06/18 [History] Lisinopril/Hydrochlorothiazide [Zestoretic 20-25 mg Tablet] 1 tab PO DAILY 04/06 [History] Meloxicam [Meloxicam] 15 mg PO DAILY 04/06/18 [History] Methyl Salicylate/Menthol [Salonpas Patch] 1 patch TP DAILY PRN MDD N 04/06/18 [ History] Montelukast [Singulair] 10 mg PO DAILY 04/06/18 [History] Multivitamin [One Daily Essential] 1 tab PO DAILY 04/06/18 [History] Tramadol HCl [Ultram] 50 mg PO DAILY 04/06/18 [History] predniSONE [PredniSONE] 60 mg PO DAILY 04/06/18 [History] 3 Allergy/AdvReac Type Severity Reaction Status Date / Time No Known Allergies Allergy Verified 04/06/18 10:17 All Systems PM: A 10-system review of systems was performed and is negative for pertinent findings except as documented above in the HPI. - Constitutional Constitutional: no chills, no fever(s), no night sweats - EENT Eyes: no change in vision, no discharge, no pain, no photophobia Ears: no ear discharge, no ear pain, no tinnitus Nose, mouth and throat: no dysphagia, no nasal discharge, no neck pain, no sore throat - Cardiovascular Cardiovascular ROS IM: no chest pain, no diaphoresis, no dyspnea, no lightheadedness, no palpitations, no syncope - Respiratory Respiratory: no cough, no dyspnea, no wheezing, no excessive phlegm production - Gastrointestinal Gastrointestinal: no abdominal pain, no diarrhea, no hematemesis, no hematochezia, no melena, no nausea, no vomiting - Genitourinary Genitourinary: no change in urinary stream, no dysuria, no flank pain, no hematuria - Musculoskeletal Musculoskeletal ROS IM: joint swelling, limited range of motion, no numbness, no tingling Additional comments: left shoulder and right knee pain - Integumentary Integumentary IM: no rash, no unusual bruising - Neurological Neurological ROS: no confusion, no convulsions, no focal weakness, no numbness, no tingling, no tremor(s) - Hematologic/Lymphatic Hematologic/Lymphatic: no easy bruising - Constitutional Vitals: Temp Pulse Resp BP Pulse Ox 99.4 F 114 16 136/73 97 04/06/18 10:11 04/06/18 13:37 04/06/18 13:37 04/06/18 13:37 04/06/18 13:37 Exam: Moderate distress from pain - Head Head exam: Present: atraumatic, normocephalic - Eye Eye exam: Present: PERRL, conjuntiva pink, sclera anicteric Pupils: Present: PERRL - Neck Neck exam general surgery: Present: supple, trachea midline. Absent: lymphadenopathy - Respiratory Respiratory exam: Present: CTAB. Absent: accessory muscle use, rales, rhonchi, wheezes - Cardiovascular Cardiovascular exam: Present: RRR, +S1, +S2. Absent: diastolic murmur, gallop, rubs, systolic murmur - GI/Abdominal GI/Abdominal exam: Present: normal bowel sounds, soft, no peritoneal signs. Absent: distended, tenderness - Extremities Exam Extremities exam: Present: joint swelling, warm, radial pulses palpable and symmetrical. Absent: calf tenderness, cyanotic, pedal edema Additional comments: limited range of motion, right knee pain and left shoulder pain - Neurological Exam Neurological exam: Present: CN II-XII intact, oriented X3, no focal deficits. Absent: pronater drift, facial droop, speech deficit - Skin Skin exam: Present: dry, intact Internal Med - H&P Results - Labs CBC & Chem 7: 04/06/18 10:31 04/06/18 10:31 - Assessment and plan (1) Shoulder subluxation, left Current Visit: Yes Status: Acute Assessment and plan: Pt present s with severe left shoulder pain and xray showing subluxation Pain control PRN. Orthopedic surgery consulted and appreciate recs Qualifiers: Encounter type: initial encounter Qualified Code(s): S43.002A - Unspecified subluxation of left shoulder joint, initial encounter (2) Altered mental status Current Visit: Yes Status: Acute Assessment and plan: Unclear etiology. Possibly secondary to pain. Howeverfamily notes she was confused and repetitive R/O CVA. CT head negative. Obtain MRI brain Qualifiers: Altered mental status type: unspecified Qualified Code(s): R41.82 - Altered mental status, unspecified (3) Arthritis of right knee Current Visit: Yes Status: Acute Assessment and plan: Pain control. Orthopedic surgery consult (4) Type 1 diabetes Current Visit: Yes Status: Acute Assessment and plan: Continue insulin pump. Monitor fingersticks Qualifiers: Qualified Code(s): E10.9 - Type 1 diabetes mellitus without complications (5) Hyponatremia Current Visit: Yes Status: Acute Assessment and plan: Iv fluids with normal saline. Repeat BMP (6) Abnormal TSH Current Visit: Yes Status: Acute Assessment and plan: TSH was borderline low at 0.24. Obtain T3 and T4 to assess possible etiology (7) DVT prophylaxis Current Visit: Yes Status: Acute Assessment and plan: heparin sc - Time Spent With Patient Total time spent is greater than 50% in coordination of care (as documented) at patient's floor/unit and/or counseling patient:
[2018-04-06] MEDS: 0.9 % Sodium Chloride 1,000 ML IVC SCH (16:04)
[2018-04-06] MEDS: Patient Taking Own Medication 1 EACH SQ SCH (16:39)
[2018-04-06 16:43] LABS: Triiodothyronine (T3) Free 3.11 pg/mL (2.50-3.90)
[2018-04-06] MEDS ORDERED: Ondansetron 4 MG/2 ML VIAL IVP PRN (16:52)
[2018-04-06] MEDS: *HR* OxyCODONE Immed Rel 5 MG TABLET PO PRN ×2 (17:15→22:40)
[2018-04-06] MEDS: *HR* Heparin 5,000 UNIT/ML VIAL SQ SCH (17:18)
[2018-04-06] MEDS: Budesonide/Formoterol 160/4.5 1 PUFF INH IH SCH (20:43)
[2018-04-06] MEDS: Acetaminophen 325 MG TABLET PO PRN (21:11)
[2018-04-07] MEDS: 0.9 % Sodium Chloride 1,000 ML IVC SCH (01:51)
[2018-04-07 04:26] LABS: Hematocrit 33.7 % (35.3-44.9); Hemoglobin 10.9 g/dL (11.5-15.4); Mean Corpuscular HGB Conc 32.3 g/dL (31.6-35.5); Mean Corpuscular Hemoglobin 29.5 pg (28.0-33.3); Mean Corpuscular Volume 91.3 fL (83.0-100.0); Mean Platelet Volume 12.2 fL (9.4-12.4); Platelet Count 145 K/mcL (140-400); Red Blood Count 3.69 M/mcL (3.82-4.97); Red Cell Distribution Width 13.1 % (11.5-14.5)
[2018-04-07] MEDS: *HR* OxyCODONE Immed Rel 5 MG TABLET PO PRN ×4 (04:48→21:19)
[2018-04-07 04:54] LABS: BUN/Creatinine Ratio 37 (6-26); Blood Urea Nitrogen 21 mg/dL (8-23); Calcium 8.5 mg/dL (8.6-10.3); Carbon Dioxide 24 mEq/L (23-29); Chloride 99 mEq/L (98-107); Glucose 154 mg/dL (70-105); Magnesium 1.6 mg/dL (1.6-2.6); Osmolality,Calculated 278 (280-300); Phosphorous 2.5 mg/dL (2.7-4.5); Sodium 131 mEq/L (136-145); eGFR For Non-African Americans > 60 (> 60)
[2018-04-07 05:52] LABS: Lymphocytes # 0.6 K/mcL (0.6-4.6); Neutrophils # 9.5 K/mcL (1.6-8.9); Platelet Estimate Normal (Normal)
[2018-04-07] MEDS: *HR* Heparin 5,000 UNIT/ML VIAL SQ SCH ×2 (06:01→17:08)
[2018-04-07] MEDS: traMADol 50 MG TABLET PO SCH (07:29)
[2018-04-07] MEDS: Multivit/Ca/Min/Fe/FA 1 TAB TABLET PO SCH (07:30)
[2018-04-07] MEDS: Acetaminophen 325 MG TABLET PO PRN ×2 (07:30→23:03)
[2018-04-07] MEDS: Budesonide/Formoterol 160/4.5 1 PUFF INH IH SCH ×2 (08:02→21:53)
--- NOTE | 2018-04-07 11:15 | Electrocardiograph Report ---
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
[2018-04-07] MEDS: Patient Taking Own Medication 1 EACH SQ SCH (12:37)
--- NOTE | 2018-04-07 13:17 | Internal Med Progress Note ---
Hospitalist Progress Note - Encounter Date of Encounter: 04/07/18 Time of Encounter: 13:14 - Subjective Interval History: Pt's son at bedside and spent the night with her. Pt states she thinks she overdid it at [employer] and with some gardening. She states pain a bit better this am. She denies fever, chills, N/V or diarrhea. She denies CP or SOB. - Exam Vitals: Temp Pulse Resp BP Pulse Ox 98.5 F 100 18 100/65 93 04/07/18 11:16 04/07/18 11:16 04/07/18 11:16 04/07/18 11:16 04/07/18 11:16 Exam: Exam: Moderate distress from pain - Head Head exam: Present: atraumatic, normocephalic - Eye Eye exam: Present: PERRL, conjuntiva pink, sclera anicteric Pupils: Present: PERRL - Neck Neck exam general surgery: Present: supple, trachea midline. Absent: lymphadenopathy - Respiratory Respiratory exam: Present: CTAB. Absent: accessory muscle use, rales, rhonchi, wheezes - Cardiovascular Cardiovascular exam: Present: RRR, +S1, +S2. Absent: diastolic murmur, gallop, rubs, systolic murmur - GI/Abdominal GI/Abdominal exam: Present: normal bowel sounds, soft, no peritoneal signs. Absent: distended, tenderness - Extremities Exam Extremities exam: Present: joint swelling, warm, radial pulses palpable and symmetrical. Absent: calf tenderness, cyanotic, pedal edema Additional comments: limited range of motion, right knee pain and left shoulder pain - Neurological Exam Neurological exam: Present: CN II-XII intact, oriented X3, no focal deficits. Absent: pronater drift, facial droop, speech deficit - Skin Skin exam: Present: dry, intact - Assessment and Plan (1) Shoulder subluxation, left Current Visit: Yes Status: Acute Assessment and Plan: Pt presents with severe left shoulder pain and xray showing subluxation Pain control PRN. Orthopedic surgery consulted and awaiting recs (2) Altered mental status Current Visit: Yes Status: Acute Assessment and Plan: Unclear etiology. Possibly secondary to pain. THis has improved significantly with better pain control. on Admission family noted she was confused and repetitive R/O CVA. CT head negative. MRI brain ordered. (3) Arthritis of right knee Current Visit: Yes Status: Acute Assessment and Plan: Pain control. RA and possibly OA Orthopedic surgery consulted. Recommend Rheumatology follow up out pt. (4) Type 1 diabetes Current Visit: Yes Status: Acute Assessment and Plan: Continue insulin pump. Monitor fingersticks (5) Hyponatremia Current Visit: Yes Status: Acute Assessment and Plan: Improving on IV fluids with normal saline. Repeat BMP in am (6) Abnormal TSH Current Visit: Yes Status: Acute Assessment and Plan: TSH was borderline low at 0.24. Obtain T3 and T4 to assess possible etiology DVT Prophylaxis: Heparin - Summary of Assessment and Plan Summary of Assessment and Plan: Ms. Mckeon is a 77 year old female with pmh of arthritis, hypertension, type 1 diabetes presenting with complaints of severe left shoulder and right knee pain since saturday. Patient complains of history of arthritis for which she has received steroid injections and been relatively fine up until the last 6 months. She loves gardening and has begun to have progressively worsening pain in her joints. She says since saturday, she has barely been able to work or do any physical activity without being in severe pain. She went to the ER on saturday where she got some prednisone and po pain meds that haven't helped with her pain. She has been in excruciating pain today and is unable to move and that's why she came to the ER. In the ER a chest xray showed left shoulder joint subluxation and severe right knee arthritis. family also notes patient has had intermittent episodes of confusion. A CT head was done which was negative - Time Spent with Patient Total time spent is greater than 50% in coordination of care (as documented) at patient's floor/unit and/or counseling patient: less than 15 minutes Plan of Care Discussed with: patient Internal Medicine: Result - Labs CBC & Chem 7: 04/07/18 03:31 04/07/18 03:31 Labs: Short CBC 04/07/18 Range/Units 03:31 WBC 10.1 (4.3-11.1) K/mcL Hgb 10.9 L (11.5-15.4) g/dL Hct 33.7 L (35.3-44.9) % Plt Count 145 (140-400) K/mcL Neutrophils # 9.5 H (1.6-8.9) K/mcL BMP 04/07/18 03:31 Sodium 131 L Potassium 4.0 Chloride 99 Carbon Dioxide 24 BUN 21 Creatinine 0.57 L Glucose 154 H Calcium 8.5 L Consult Discharge Plan - Plan Referrals: NONE,PCP [Primary Care Provider] - (1) Shoulder subluxation, left Qualifiers: Encounter type: initial encounter Qualified Code(s): S43.002A - Unspecified subluxation of left shoulder joint, initial encounter (2) Altered mental status Qualifiers: Altered mental status type: unspecified Qualified Code(s): R41.82 - Altered mental status, unspecified (4) Type 1 diabetes Qualifiers: Qualified Code(s): E10.9 - Type 1 diabetes mellitus without complications
--- NOTE | 2018-04-07 14:43 | Orthopedic Consult Note ---
Date of Encounter: 04/08/18 Time of Encounter: 12:15 Assessment and Plan (1) Arthritis of right knee Current Visit: Yes Status: Acute Xrays show "Tricompartmental joint space narrowing with marginal osteophytes as well as tricompartmental chondrocalcinosis. This may represent osteoarthritis and/or CPPD arthropathy.Large intra-articular loose body measuring up to 20 mm in size in the lateral suprapatellar bursa" but this does not appear to be the source of her pain and does not appear to actually be in joint space. Xrays do show the fibula on the right side and appears that the image was just not flipped to the conventional view. Patient confirmed that the board/xray was placed under right knee. Continue conservative treatment as there is no erythema or warmth to suggest septic joint. Can follow up on outpatient basis with sports medicine for further management. recommend PT/OT for mobility and gait training. Ice and elevate as needed. Pain per hospitalist team. Agree with refferal to rheumatology. Scheduled with sport medicine on 04/11/18 in [facility] office. If patient does not want to keep this appt then please call office to cancel or reschedule per patient's request. She states she wants to talk with her friend first to see who they saw. (2) Left shoulder pain Current Visit: Yes Status: Acute CXR was performed showing severe osteoarthritis of bilateral shoulders and noted mild subluxation of left shoulder of unknown timeframe. Suggested related to joint effusion or possible rotator cuff injury previously. No fractures noted, will obtain dedicated left shoulder xrays for more views. Discussed with Dr. Veliz and appears to be flair of her chronic arthritis pain. No erythema, swelling or warmth to suggest septic joint. Work on motion as tolerated. Recommend PT/OT eval for exercises. Pain control per hospitalist. Ice as needed. She does follow with Dr. De Paz for this but she prefers to not return to him. Will schedule follow up with sports medicine outpatient for further OA management as she is not interested in any surgical intervention at this time and has had previous joint injection with little improvement. Office to fax appt card. Qualifiers: Chronicity: chronic Qualified Code(s): M25.512 - Pain in left shoulder; G89.29 - Other chronic pain History of Present Illness Chief complaint: left shoulder pain, right knee pain HPI: Ms. Mckeon is a 77 year old female who presented to the ER yesterday with altere d mental status with left shoulder and right knee pain. She states she was gardening on 03/31/18 all day and then her shoulder and knee pain began the next day and she has not been able to move them much since then. She states she has chronic bilateral shoulder issues for which she has seen Dr. De Paz and has received shoulder injection with little improvement. She states she has been told he needs TSR but does not want this at this time. Usually her pain is worse to right shoulder so she used the left arm to garden all day and now it is having significant pain. Denies any other known injuries. Denies any numbness or tingling to extremities. She states she went to [place] on 04/02/18 and was p rescribed prednisone for muscle strain but this has not helped. She states she chronically has some knee pain but usually only bothers her when going up/down stairs and has never had this much pain in her knee. She denies kneeling on knees and states she stood the entire time gardening bending over at waist. She now is unable to move either joint due to significant worsening of pain when she does. Pain is tolerable at rest. Denies any other symptoms at this time. She states she has been taking ArthroZyme Plus which has been significantly helping her pain in all joints but she ran out recently and waiting for more on order. Past Med Surg Social Fam HX - Past Medical History Medical history: arthritis, asthma, diabetes, hypertension Psychiatric history: no psych history - Past Surgical History Additional surgical history: skin cancer removed - Social History Smoking Status: Never smoker Smokeless Tobacco Status: No Alcohol use: none Drug use: none - Family History Mother Living Status: Age at : 93 Cause of : failure to thrive Father Living Status: Age at : 94 Cause of : failure to thrive Medications and Allergies Albuterol Sulfate [Ventolin Hfa] 2 puff IH Q4H PRN 04/06/18 [History] Budesonide/Formoterol 160/4.5 [Symbicort 160/4.5] 2 puff PO BID 04/06/18 [History] Esomeprazole Magnesium [Nexium] 40 mg PO DAILY 04/06/18 [History] Insulin ASPART [NovoLOG] 0 unit SQ AD 04/06/18 [History] Lisinopril/Hydrochlorothiazide [Zestoretic 20-25 mg Tablet] 1 tab PO DAILY 04/06/18 [History] Meloxicam [Meloxicam] 15 mg PO DAILY 04/06/18 [History] Methyl Salicylate/Menthol [Salonpas Patch] 1 patch TP DAILY PRN MDD N 04/06/18 [History] Montelukast [Singulair] 10 mg PO DAILY 04/06/18 [History] Multivitamin [One Daily Essential] 1 tab PO DAILY 04/06/18 [History] Tramadol HCl [Ultram] 50 mg PO DAILY 04/06/18 [History] predniSONE [PredniSONE] 60 mg PO DAILY 04/06/18 [History] Allergy/AdvReac Type Severity Reaction Status Date / Time No Known Allergies Allergy Verified 04/06/18 10:17 All Systems Reviewed: The remainder of the systems were reviewed and are negative - Constitutional Constitutional: as per HPI - Cardiovascular Cardiovascular: as per HPI - Respiratory Respiratory: as per HPI - Musculoskeletal Musculoskeletal: as per HPI Physical Exam - Constitutional Vitals: Temp Pulse Resp BP Pulse Ox 98.5 F 100 18 100/65 93 04/07/18 11:16 04/07/18 11:16 04/07/18 11:16 04/07/18 11:16 04/07/18 11:16 - Shoulder left Appearance shoulder: normal Tenderness w/ palpation shoulder: anterior, posterior Pain with motion: Yes ROM: abduction: abnormal ROM: forward flexion: abnormal ROM: extension: abnormal ROM: adduction: abnormal - Knee right Appearance: normal (no erythema, no warmth, no abrasions, no ecchymosis, no calf tenderness to palpation, minimal swelling) Tenderness with palpation knee: none Pain: with flexion, throughout ROM Gait: limping ROM: extension knee: Limited ROM: flexion knee: Limited Patella exam: normal Results - Labs Result Diagrams: 04/07/18 03:31 04/07/18 03:31 Labs: Abnormal lab results RBC 3.69 M/mcL (3.82-4.97) L 04/07/18 03:31 Hgb 10.9 g/dL (11.5-15.4) L 04/07/18 03:31 Hct 33.7 % (35.3-44.9) L 04/07/18 03:31 Band Neutrophils % 10.0 % (0-4) H 04/07/18 03:31 Neutrophils # 9.5 K/mcL (1.6-8.9) H 04/07/18 03:31 VBG pCO2 33 mmHg (41-51) L 04/06/18 10:45 VBG pO2 84 mmHg (25-50) H 04/06/18 10:45 Sodium 131 mEq/L (136-145) L 04/07/18 03:31 Creatinine 0.57 mg/dL (0.60-1.20) L 04/07/18 03:31 BUN/Creatinine Ratio 37 (6-26) H 04/07/18 03:31 Glucose 154 mg/dL (70-105) H 04/07/18 03:31 POC Glucose 174 mg/dL (70-99) H 04/06/18 20:36 Hemoglobin A1c 7.8 % (-5.6) H 04/06/18 10:31 Calculated Osmolality 278 (280-300) L 04/07/18 03:31 Calcium 8.5 mg/dL (8.6-10.3) L 04/07/18 03:31 Phosphorus 2.5 mg/dL (2.7-4.5) L 04/07/18 03:31 Alkaline Phosphatase 108 Units/L (34-104) H 04/06/18 10:31 Creatine Kinase 22 Units/L (30-223) L 04/06/18 13:46 Albumin 3.1 g/dL (3.5-5.7) L 04/06/18 10:31 Globulin 3.6 g/dL (2.4-3.5) H 04/06/18 10:31 Albumin/Globulin Ratio 0.9 (1.1-2.2) L 04/06/18 10:31 TSH 0.248 mcIU/mL (0.340-5.600) L 04/06/18 10:31 Ur Specimen Adequacy See below A 04/06/18 11:55 Urine Protein 30 mg/dL (Neg-Trace) H 04/06/18 11:55 Urine Glucose (UA) 250 mg/dL (Normal) H 04/06/18 11:55 Urine Blood Small (Negative) H 04/06/18 11:55 Urine Microscopic RBC 5-15 per hpf (0-3) H 04/06/18 11:55 Ur Squamous Epith Cells Many per lpf (None-Few) H 04/06/18 11:55 Urine Opiates Screen Positive ng/mL (Fjunev=716) H 04/06/18 11:54 H & H 04/07/18 Range/Units 03:31 Hgb 10.9 L (11.5-15.4) g/dL Hct 33.7 L (35.3-44.9) % All other labs normal. - Diagnostic results Shoulder x-ray: report reviewed, image reviewed Knee x-ray: report reviewed, image reviewed Consult Discharge Plan - Plan Referrals: Anish Live DO [Partnered Physician] - 04/11/18 1:00 pm NONE,PCP [Primary Care Provider] - - Attending Attestation Case and plan of care discussed with supervising physician who was available for all aspects of care.
[2018-04-08] MEDS: *HR* OxyCODONE Immed Rel 5 MG TABLET PO PRN ×4 (01:30→22:05)
[2018-04-08] MEDS: *HR* Heparin 5,000 UNIT/ML VIAL SQ SCH ×2 (05:28→17:54)
[2018-04-08] MEDS: traMADol 50 MG TABLET PO SCH (07:57)
[2018-04-08] MEDS: Multivit/Ca/Min/Fe/FA 1 TAB TABLET PO SCH (07:57)
[2018-04-08] MEDS: Budesonide/Formoterol 160/4.5 1 PUFF INH IH SCH ×2 (08:00→22:25)
[2018-04-08] MEDS: Insulin LISPRO 300 UNITS/3 ML VIAL SQ SCH ×3 (13:01→21:09)
[2018-04-08] MEDS: Patient Taking Own Medication 1 EACH SQ SCH (13:02)
[2018-04-08] MEDS: Ibuprofen 400 MG TABLET PO PRN (15:53)
[2018-04-08] MEDS: methylPREDNISolone 4 MG TABLET PO SCH (15:54)
--- NOTE | 2018-04-08 16:21 | Internal Med Progress Note ---
Hospitalist Progress Note - Encounter Date of Encounter: 04/08/18 Time of Encounter: 16:18 - Subjective Interval History: Pt seems drowsy today as noted by nurse and myself. Spoke with pt's on the phone and he expressed that she seemed drowsy today. She is appropriate when awake. Pt states he had been given prednisone at urgent care and didn't think it helped much explained to her that steroid needs time to take effect. She denies fever, chills, N/V or diarrhea. She denies CP or SOB. - Exam Vitals: Temp Pulse Resp BP Pulse Ox 100 F H 110 12 114/65 96 04/08/18 15:06 04/08/18 15:06 04/08/18 15:06 04/08/18 15:06 04/08/18 15:06 Exam: Exam: Moderate distress from pain - Head Head exam: Present: atraumatic, normocephalic - Eye Eye exam: Present: PERRL, conjuntiva pink, sclera anicteric Pupils: Present: PERRL - Neck Neck exam general surgery: Present: supple, trachea midline. Absent: lymphadenopathy - Respiratory Respiratory exam: Present: CTAB. Absent: accessory muscle use, rales, rhonchi, wheezes - Cardiovascular Cardiovascular exam: Present: RRR, +S1, +S2. Absent: diastolic murmur, gallop, rubs, systolic murmur - GI/Abdominal GI/Abdominal exam: Present: normal bowel sounds, soft, no peritoneal signs. Absent: distended, tenderness - Extremities Exam Extremities exam: Present: joint swelling, warm, radial pulses palpable and symmetrical. Absent: calf tenderness, cyanotic, pedal edema Additional comments: limited range of motion, right knee pain and left shoulder pain - Neurological Exam Neurological exam: Present: CN II-XII intact, oriented X3, no focal deficits. Absent: pronater drift, facial droop, speech deficit - Skin Skin exam: Present: dry, intact - Assessment and Plan (1) Shoulder subluxation, left Current Visit: Yes Status: Acute Assessment and Plan: Pt presents with severe left shoulder pain and xray showing subluxation. Orthopedic surgery consulted and recommending continuing pain control and PT/OT evaluation. Pain control PRN. Medrol dose walt and flexeril (2) Altered mental status Current Visit: Yes Status: Acute Assessment and Plan: Possibly secondary to pain. On Admission family noted she was confused and repetitive This has improved significantly with better pain control but drowsy this morning. Will cut pain medication down to half the dose. Ruled out CVA. CT head negative. MRI brain. MR/MR head/brain wo con IMPRESSION: No acute intracranial abnormality. Mild chronic microvascular ischemic disease. (3) Arthritis of right knee Current Visit: Yes Status: Acute Assessment and Plan: Pain control. RA and severe OA Orthopedic surgery consulted. Recommend Rheumatology follow up out pt. (4) Type 1 diabetes Current Visit: Yes Status: Acute Assessment and Plan: Continue insulin pump. Monitor finger sticks (5) Hyponatremia Current Visit: Yes Status: Acute Assessment and Plan: Improving on IV fluids with normal saline. Repeat BMP in am (6) Abnormal TSH Current Visit: Yes Status: Acute Assessment and Plan: Likely subclinical hypothyroidism. TSH was borderline low at 0.24. T3 3.11 and T4 1.25 DVT Prophylaxis: Heparin - Summary of Assessment and Plan Summary of Assessment and Plan: Ms. Mckeon is a 77 year old female with pmh of arthritis, hypertension, type 1 diabetes presenting with complaints of severe left shoulder and right knee pain since saturday. Patient complains of history of arthritis for which she has received steroid injections and been relatively fine up until the last 6 months. She loves gardening and has begun to have progressively worsening pain in her joints. She says since saturday, she has barely been able to work or do any physical activity without being in severe pain. She went to the ER on saturday where she got some prednisone and po pain meds that haven't helped with her pain. She has been in excruciating pain today and is unable to move and that's why she came to the ER. In the ER a chest xray showed left shoulder joint subluxation and severe right knee arthritis. family also notes patient has had intermittent episodes of confusion. A CT head was done which was negative - Time Spent with Patient Total time spent is greater than 50% in coordination of care (as documented) at patient's floor/unit and/or counseling patient: less than 15 minutes Plan of Care Discussed with: patient Internal Medicine: Result - Labs CBC & Chem 7: 04/07/18 03:31 04/07/18 03:31 - Impressions Impressions Shoulder X-Ray 04/07/18 18:04 IMPRESSION: Severe left glenohumeral joint osteoarthritic degenerative changes with large marginal osteophytes, subchondral changes and bony remottling. Calcification suggesting calcific tendinosis of the rotator cuff. No acute fracture or dislocation. D/ / Daniel Rockwell MD / Daniel Rockwell MD Interpreting Provider: Daniel Rockwell MD Consult Discharge Plan - Plan Referrals: Anish Live DO [Partnered Physician] - 04/11/18 1:00 pm NONE,PCP [Primary Care Provider] - (1) Shoulder subluxation, left Qualifiers: Encounter type: initial encounter Qualified Code(s): S43.002A - Unspecified subluxation of left shoulder joint, initial encounter (2) Altered mental status Qualifiers: Altered mental status type: unspecified Qualified Code(s): R41.82 - Altered mental status, unspecified (4) Type 1 diabetes Qualifiers: Qualified Code(s): E10.9 - Type 1 diabetes mellitus without complications
--- NOTE | 2018-04-08 17:25 | Orthopedics Progress Note ---
Addendum entered and electronically signed by CORRINA oHffman 04/09/18 12:01: I have updated Dr. Veliz with patient's status. Orthopedics will sign off at this time. Please call for any future questions or if she would like to change her follow up appt with Dr. Live in [facility] office on 04/11/18. Original Note: Date of Encounter: 04/08/18 Time of Encounter: 16:45 - Assessment and Plan (1) Arthritis of right knee Current Visit: Yes Status: Acute Xrays show tricompartmental arthritis Continue conservative treatment as there is no erythema or warmth to suggest septic joint. Continue with PT/OT for joint mobility and gait training. Ice and elevate as needed. Pain per hospitalist team. Agree with referral to rheumatology. Can follow up on outpatient basis with sports medicine for further management. Scheduled with sport medicine on 04/11/18 in [facility] office. If patient does not want to keep this appt then please call office to cancel or reschedule per patient's request. She states she wants to talk with her friend first to see who they saw. (2) Left shoulder pain Current Visit: Yes Status: Acute Dedicated shoulder xrays showed "Severe left glenohumeral joint osteoarthritic degenerative changes with large marginal osteophytes, subchondral changes and bony remottling. Calcification suggesting calcific tendinosis of the rotator cuff. No acute fracture or dislocation". Discussed with Dr. Veliz and appears to be flair of her chronic arthritis pain. No erythema, swelling or warmth to suggest septic joint. Work on motion as tolerated. Recommend PT/OT eval for motion. Pain control per hospitalist. Ice as needed. She does follow with Dr. De Paz for this but she prefers to not return to him. Will schedule follow up with sports medicine outpatient for further OA management as she is not interested in any surgical intervention at this time and has had previous joint injection with little improvement. Office to fax appt card. If she cannot keep this appt or she prefers to switch to a different sports med provider please call office to make this change. Qualifiers: Chronicity: chronic Qualified Code(s): M25.512 - Pain in left shoulder; G89.29 - Other chronic pain Subjective Principal diagnosis: left shoulder pain, right knee pain Interval history: S: Patient states really no change today to her pain. She tried to work a little with therapy today but pain made it difficult. She denies any new concerns at this time. O: left shoulder - continued limited ROM secondary to pain. good motion of elbow. no erythema or warmth right knee - continued limited AROM, able to extend knee fully on PROM which is improved. No erythema or warmth. no calf tenderness. no significant swelling. Objective Vital signs: Vital Signs Temp Pulse Resp BP Pulse Ox 04/08/18 15:06 100 F H 110 12 114/65 96 04/08/18 12:01 99.7 F H 111 13 97/63 96 04/08/18 08:01 16 95 04/08/18 07:02 99.2 F 108 14 114/73 96 04/08/18 03:02 98.7 F 68 16 99/67 98 04/08/18 00:15 98.6 F 04/07/18 23:10 100.3 F H 105 16 120/74 94 04/07/18 21:54 18 94 04/07/18 18:19 99.8 F H 73 16 110/71 97 Intake and Output 04/08/18 04/08/18 04/08/18 07:59 15:59 23:59 Output Total 550 / 550 300 / 300 Balance -550 / -550 -300 / -300 Output: Catheter 550 / 550 300 / 300 Urethral (Donohue) 300 / 300 Other: Weight 66.7 kg Blood Glucose* 199 223 Patient Weight 04/08/18 23:59 Weight 66.7 kg - Labs CBC & BMP: 04/07/18 03:31 04/07/18 03:31 Labs: Abnormal lab results RBC 3.69 M/mcL (3.82-4.97) L 04/07/18 03:31 Hgb 10.9 g/dL (11.5-15.4) L 04/07/18 03:31 Hct 33.7 % (35.3-44.9) L 04/07/18 03:31 Band Neutrophils % 10.0 % (0-4) H 04/07/18 03:31 Neutrophils # 9.5 K/mcL (1.6-8.9) H 04/07/18 03:31 VBG pCO2 33 mmHg (41-51) L 04/06/18 10:45 VBG pO2 84 mmHg (25-50) H 04/06/18 10:45 Sodium 131 mEq/L (136-145) L 04/07/18 03:31 Creatinine 0.57 mg/dL (0.60-1.20) L 04/07/18 03:31 BUN/Creatinine Ratio 37 (6-26) H 04/07/18 03:31 Glucose 154 mg/dL (70-105) H 04/07/18 03:31 POC Glucose 243 mg/dL (70-99) H 04/07/18 19:55 Hemoglobin A1c 7.8 % (-5.6) H 04/06/18 10:31 Calculated Osmolality 278 (280-300) L 04/07/18 03:31 Calcium 8.5 mg/dL (8.6-10.3) L 04/07/18 03:31 Phosphorus 2.5 mg/dL (2.7-4.5) L 04/07/18 03:31 Alkaline Phosphatase 108 Units/L (34-104) H 04/06/18 10:31 Creatine Kinase 22 Units/L (30-223) L 04/06/18 13:46 Albumin 3.1 g/dL (3.5-5.7) L 04/06/18 10:31 Globulin 3.6 g/dL (2.4-3.5) H 04/06/18 10:31 Albumin/Globulin Ratio 0.9 (1.1-2.2) L 04/06/18 10:31 TSH 0.248 mcIU/mL (0.340-5.600) L 04/06/18 10:31 Ur Specimen Adequacy See below A 04/06/18 11:55 Urine Protein 30 mg/dL (Neg-Trace) H 04/06/18 11:55 Urine Glucose (UA) 250 mg/dL (Normal) H 04/06/18 11:55 Urine Blood Small (Negative) H 04/06/18 11:55 Urine Microscopic RBC 5-15 per hpf (0-3) H 04/06/18 11:55 Ur Squamous Epith Cells Many per lpf (None-Few) H 04/06/18 11:55 Urine Opiates Screen Positive ng/mL (Pexdne=670) H 04/06/18 11:54 Consult Discharge Plan - Plan Referrals: Live,Anish Trevon, DO [Partnered Physician] - 04/11/18 1:00 pm NONE,PCP [Primary Care Provider] -
[2018-04-08 17:26] LABS: BUN/Creatinine Ratio 34 (6-26); Blood Urea Nitrogen 26 mg/dL (8-23); Calcium 8.8 mg/dL (8.6-10.3); Carbon Dioxide 24 mEq/L (23-29); Chloride 92 mEq/L (98-107); Glucose 274 mg/dL (70-105); Osmolality,Calculated 277 (280-300); Potassium 3.8 mEq/L (3.5-5.1); Sodium 126 mEq/L (136-145); eGFR For Non-African Americans > 60 (> 60)
[2018-04-09] MEDS: Ibuprofen 400 MG TABLET PO PRN ×2 (00:23→22:29)
[2018-04-09] MEDS: *HR* OxyCODONE Immed Rel 5 MG TABLET PO PRN ×4 (02:25→20:33)
[2018-04-09 04:29] LABS: BUN/Creatinine Ratio 41 (6-26); Blood Urea Nitrogen 30 mg/dL (8-23); Calcium 8.7 mg/dL (8.6-10.3); Carbon Dioxide 28 mEq/L (23-29); Chloride 89 mEq/L (98-107); Glucose 329 mg/dL (70-105); Osmolality,Calculated 283 (280-300); Potassium 3.8 mEq/L (3.5-5.1); Sodium 127 mEq/L (136-145); eGFR For Non-African Americans > 60 (> 60)
[2018-04-09] MEDS: *HR* Heparin 5,000 UNIT/ML VIAL SQ SCH ×2 (06:39→18:54)
[2018-04-09] MEDS: Budesonide/Formoterol 160/4.5 1 PUFF INH IH SCH ×2 (07:53→19:39)
[2018-04-09] MEDS: Insulin LISPRO 300 UNITS/3 ML VIAL SQ SCH ×4 (08:48→20:34)
[2018-04-09] MEDS: Multivit/Ca/Min/Fe/FA 1 TAB TABLET PO SCH (08:48)
[2018-04-09] MEDS: traMADol 50 MG TABLET PO SCH (08:48)
[2018-04-09] MEDS: methylPREDNISolone 4 MG TABLET PO SCH (08:48)
--- NOTE | 2018-04-09 12:21 | Rheumatology Consult Note ---
<Prakash Reinoso - Last Filed: 04/09/18 13:44> Date of Encounter: 04/09/18 Time of Encounter: 11:36 Rheumatology Assess and Plan (1) Calcium pyrophosphate arthropathy Current Visit: Yes Status: Acute 77F with history of osteoarthritis presents with intermittent altered mental status, severe left shoulder and right knee pain. Left shoulder xray: severe glenohumeral osteoarthritic changes with large marginal osteophytes, subchondral sclerosis, calcific tendonitis. Right knee xray: tricompartmental joint space narrowing with osteophytes. Assessment: suspect her arthralgias are secondary to CPPD arthropathy based on xrays and clinical presentation. It is also likely that CPPD is contributing to her intermittent altered mental status as well, as this can present in elderly patients. Plan: Right knee arthrocentesis performed with about 10cc yellow, purulent fluid obtained. purulent fluid could be due to crystal deposition, or infectious joint. Await cultures. Will hold off on steroids until fluid analysis complete. Synovial fluid sent for cell count, diff, gram stain, crystal analysis, culture. Check uric acid, RF, CCP. Check CBC for tomorrow morning. Will continue to follow as inpatient. Rheumatology HPI Consult date: 04/09/18 Requesting physician: Nita Root Consult reason: arthralgia Chief complaint: joint pain History of present illness: Ms. Mckeon is a 77 year old female with PMHx of Osteoarthritis, HTN, type 1 DM, asthma. Patient recently presented to [facility] recently with chief complaint of left shoulder and right knee pain. She received prednisone and pain medication and was sent home. These medications did not help with her pain so she presented to [facility] on 04/06/18 with worsening left shoulder and right knee pain. Per chart review, Patient's family also stated that she was having intermittent episodes of altered mental status. Today, patient states that her joint pain had been going on for several years but recently started getting worse over the past six months. Her home medications include prednisone, mobic, tramadol. Her left shoulder and right knee pain have been getting more severe over the past few weeks. 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 She states she has gotten joint injections in the past in her left shoulder, which gave her relief. patient denies nausea, vomiting, diarrhea, fever, chills,chest pain, shortness of breath. She admits to intermittent confusion. Past Med Surg Social Fam HX - Past Medical History Medical history: arthritis, asthma, diabetes, hypertension Psychiatric history: no psych history - Past Surgical History Additional surgical history: skin cancer removed - Social History Smoking Status: Never smoker Smokeless Tobacco Status: No Alcohol use: none Drug use: none - Family History Mother Living Status: Age at : 93 Cause of : failure to thrive Father Living Status: Age at : 94 Cause of : failure to thrive Medications and Allergies Albuterol Sulfate [Ventolin Hfa] 2 puff IH Q4H PRN 04/06/18 [History] Budesonide/Formoterol 160/4.5 [Symbicort 160/4.5] 2 puff PO BID 04/06/18 [ History] Esomeprazole Magnesium [Nexium] 40 mg PO DAILY 04/06/18 [History] Insulin ASPART [NovoLOG] 0 unit SQ AD 04/06/18 [History] Lisinopril/Hydrochlorothiazide [Zestoretic 20-25 mg Tablet] 1 tab PO DAILY 04/06 [History] Meloxicam [Meloxicam] 15 mg PO DAILY 04/06/18 [History] Methyl Salicylate/Menthol [Salonpas Patch] 1 patch TP DAILY PRN MDD N 04/06/18 [ History] Montelukast [Singulair] 10 mg PO DAILY 04/06/18 [History] Multivitamin [One Daily Essential] 1 tab PO DAILY 04/06/18 [History] Tramadol HCl [Ultram] 50 mg PO DAILY 04/06/18 [History] predniSONE [PredniSONE] 60 mg PO DAILY 04/06/18 [History] 3 Allergy/AdvReac Type Severity Reaction Status Date / Time No Known Allergies Allergy Verified 04/06/18 10:17 All Systems Review: General: denies nausea, fever, chills, weight changes. Neuro: admits to intermittent confusion and dizziness. Denies history of seizures. ENT: denies oral or nasal ulcers, ear pain. CV: denies chest pain, history of serositis, palpitations. Respiratory: denies cough, shortness of breath, wheezing. GI: denies abdominal pain, hematochezia, melena, nausea, vomiting, diarrhea. MSK: as per HPI skin: denies rashes, ulcers, hives. Denies genital ulcers. Heme/onc: no history of easy bleeding, easy bruising, blood clots, miscarriages. Rheumatology Exam Vital Signs, Last 4 Hours Temp Pulse Resp BP Pulse Ox 04/09/18 11:18 97.9 F 112 16 118/79 93 04/09/18 07:56 18 94 Exam: General: alert and oriented x3. Appears to be in moderate distress due to joint pain. afebrile, tachycardic, normotensive. ENT: normal inspection of ears, nose, nasal and oral mucosa. Oral mucosa appears moist. No lesions or masses of the lips or gums. CV: tachycardic, normal S1, S2, no murmurs, rubs, gallops, or thrills appreciated. +1 bilateral lower extremity pitting edema present up to the mid calf area. Eyes: no scleral icterus, PERRL, intact extraocular movements, normal appearing conjunctiva and eyelids. Respiratory: normal respiratory effort, no intercostal retraction or accessory muscle use. No dullness to percussion. Lungs clear to auscultation bilaterally. GI: abdomen obese, soft, mildly distended, with generalized tenderness to palpation. Bowel sounds present. No organomegaly or hernias appreciated. SKin: No ulcers or rashes noted. nail exam normal. neuro: cranial nerves 2-12 intact, no focal deficits. No pathologic reflexes present. intact sensation. gait could not be assessed due to joint pain. MSK: No clubbing or cyanosis of the extremities present. Shoulders: patient could not abduct right shoulder past 90 degrees. Right shoulder was warm without any erythema or tenderness. Left shoulder warm with 2cm mobile mass present. could not ABduct left shoulder at all. Patient reported severe pain with any manipulation of the arm. wrists/hands: full ROM, no erythema, warmth, tenderness. 2nd MCP enlargement. No MCP, PIP, or DIP tenderness appreciated. Haberdens nodes present. Left knee: no warmth or erythema, or effusion. No laxity on varus or valgus stress. Anterior drawr test negative. Right knee: no erythema. significant warmth present. Moderate effusion present on the right knee with severe tenderness to flexion, extension, palpation of the right knee. Full physical exam could not be performed due to pain. Ankles: normal ROM, no pain, warmth, erythema. bilateral enlarged 1st MTP joints without tenderness. Bilateral metatarsals show lateral deviation. Muscle strength: 4/5 on upper and lower extremities. Rheumatology Results 04/07/18 03:31 04/09/18 03:37 All other labs normal. Rheumatology Procedures - Joint Aspiration/Injection Joint Aspiration/Injection 1 Consent obtained: written consent Time out performed: Yes Side of body: right Joint aspirated: knee Ultrasound guidance: No Skin prep: Chlorhexidine Local anesthesia used: lidocaine 1% Amount of anesthesia used (mLs): 3 Needle size used: 18G Fluid obtained: purulent Total fluid obtained (mLs): 10 Patient tolerated procedure: well, no complications Complications: none (joint aspiration performed.) Consult Discharge Plan - Plan Referrals: Anish Live, [Partnered Physician] - 04/11/18 1:00 pm NONE,PCP [Primary Care Provider] - <Bob Morales - Last Filed: 04/09/18 17:06> Date of Encounter: 04/09/18 Rheumatology HPI History of present illness: Ms. Mckeon is a 77 year old female All Systems Review: The remainder of the systems were reviewed and are negative Rheumatology Results 04/07/18 03:31 04/09/18 03:37 Immunology Rheumatoid Factor < 10 IU/mL (Less than 14) 04/09/18 13:08 All other labs normal. - Attending Attestation I examined this patient and my medical decision making was reviewed with the resident physician. I agree with the documented findings, disposition and treatment as described with these exceptions. Marsha Mckeon is a 77 year old female with PMH of DM1, HTN, asthma who presented to the hospital with altered mental status and joint pain. AMS workup negative with imaging and electrolytes. Xray workup of affected joints with osteoarthritis; I personally reviewed the shoulder and knee to which I believe there is evidence of chondrocalcinosis on both images with significant osteophytosis. No leukocytosis, neutrophils elevate. Uric acid 4.3. RF negative. Exam with pain on ROM of left shoulder. Effusion noted on right knee with pain to palpation and ROM. Apirated fluid purulent. At this time, suspect oligoarthritis of both the knee and the shoulder. Aspirated today for cell count, diff, culture and gram stain which is pending. While a polyarticular attack may more likely be a crystal arthritis, will need to consider infections. If no crystals noted and inflammatory in nature, may need to cover with antibiotics till cultures negative. Hold off on corticosteroids. Will continue to follow.
[2018-04-09] MEDS: Patient Taking Own Medication 1 EACH SQ SCH (13:10)
--- NOTE | 2018-04-09 15:28 | Internal Med Progress Note ---
Hospitalist Progress Note - Encounter Date of Encounter: 04/09/18 Time of Encounter: 15:25 - Subjective Interval History: Pt seems drowsy today as noted by nurse and myself. Spoke with pt's on the phone and he expressed that she seemed drowsy today. She is appropriate when awake. Pt states he had been given prednisone at urgent care and didn't think it helped much explained to her that steroid needs time to take effect. She denies fever, chills, N/V or diarrhea. She denies CP or SOB. - Exam Vitals: Temp Pulse Resp BP Pulse Ox 98.0 F 105 15 102/57 92 04/09/18 15:17 18 15:17 04/09/18 15:17 04/09/18 15:17 04/09/18 15:17 Exam: Exam: Moderate distress from pain - Head Head exam: Present: atraumatic, normocephalic - Eye Eye exam: Present: PERRL, conjuntiva pink, sclera anicteric Pupils: Present: PERRL - Neck Neck exam general surgery: Present: supple, trachea midline. Absent: lymphadenopathy - Respiratory Respiratory exam: Present: CTAB. Absent: accessory muscle use, rales, rhonchi, wheezes - Cardiovascular Cardiovascular exam: Present: RRR, +S1, +S2. Absent: diastolic murmur, gallop, rubs, systolic murmur - GI/Abdominal GI/Abdominal exam: Present: normal bowel sounds, soft, no peritoneal signs. Absent: distended, tenderness - Extremities Exam Extremities exam: Present: joint swelling R knee > L. Left shoulder joint swelling > R, warm, radial pulses palpable and symmetrical. Absent: calf tenderness, cyanotic, pedal edema Additional comments: limited range of motion, right knee pain and left shoulder pain - Neurological Exam Neurological exam: Present: CN II-XII intact, oriented X3, no focal deficits. Absent: pronater drift, facial droop, speech deficit - Skin Skin exam: Present: dry, intact - Assessment and Plan (1) Shoulder subluxation, left Current Visit: Yes Status: Acute Assessment and Plan: Pt presents with severe left shoulder pain and xray showing subluxation. Orthopedic surgery consulted and recommending continuing pain control and PT/OT evaluation. Requested rheumatology consult and appreciate. Medrol dose walt and flexeril was ordered but due to abnormal R knee aspiration, will hold off on Medrol for now per Rhematology recommendation. (2) Altered mental status Current Visit: Yes Status: Acute Assessment and Plan: Possibly secondary to pain. On Admission family noted she was confused and repetitive This has improved significantly with better pain control but drowsy this morning. Decreased pain medication down to half and son agreeable with plan. Ruled out CVA. CT head negative. MRI brain. MR/MR head/brain wo con IMPRESSION: No acute intracranial abnormality. Mild chronic microvascular ischemic disease. (3) Arthritis of right knee Current Visit: Yes Status: Acute Assessment and Plan: Severe OA but RA factor neg. Orthopedic surgery consulted and recommends continue pain control and PT/OT. Consulted Rheumatology due to persistent/intractable R knee pain and s/p aspiraion of R knee effusion. Dr. Hamilton recommends hold off on antibiotic for now while effusion cultures are being sent for analysis. Continue with pain control. (4) Type 1 diabetes Current Visit: Yes Status: Acute Assessment and Plan: Continue insulin pump. Monitor finger sticks (5) Hyponatremia Current Visit: Yes Status: Acute Assessment and Plan: Was improving on IV fluids with normal saline but down tjo 127 again. Will hold Lisinopril and HCTZ. Will check sodium studies. Will continue to monitor BMP. (6) Abnormal TSH Current Visit: Yes Status: Acute Assessment and Plan: Likely subclinical hypothyroidism. TSH was borderline low at 0.24. T3 3.11 and T4 1.25 DVT Prophylaxis: Heparin - Summary of Assessment and Plan Summary of Assessment and Plan: Ms. Mckeon is a 77 year old female with pmh of arthritis, hypertension, type 1 diabetes presenting with complaints of severe left shoulder and right knee pain since saturday. Patient complains of history of arthritis for which she has received steroid injections and been relatively fine up until the last 6 months. She loves gardening and has begun to have progressively worsening pain in her joints. She says since saturday, she has barely been able to work or do any physical activity without being in severe pain. She went to the ER on saturday where she got some prednisone and po pain meds that haven't helped with her pain. She has been in excruciating pain today and is unable to move and that's why she came to the ER. In the ER a chest xray showed left shoulder joint subluxation and severe right knee arthritis. family also notes patient has had intermittent episodes of confusion. A CT head was done which was negative - Time Spent with Patient Total time spent is greater than 50% in coordination of care (as documented) at patient's floor/unit and/or counseling patient: less than 15 minutes Plan of Care Discussed with: patient Internal Medicine: Result - Labs CBC & Chem 7: 04/07/18 03:31 04/09/18 03:37 Labs: BMP 04/08/18 04/09/18 16:44 03:37 Sodium 126 L 127 L Potassium 3.8 3.8 Chloride 92 L 89 L Carbon Dioxide 24 28 BUN 26 H 30 H Creatinine 0.77 0.73 Glucose 274 H 329 H Calcium 8.8 8.7 Consult Discharge Plan - Plan Referrals: Anish Live DO [Partnered Physician] - 04/11/18 1:00 pm NONE,PCP [Primary Care Provider] - (1) Shoulder subluxation, left Qualifiers: Encounter type: initial encounter Qualified Code(s): S43.002A - Unspecified subluxation of left shoulder joint, initial encounter (2) Altered mental status Qualifiers: Altered mental status type: unspecified Qualified Code(s): R41.82 - Altered mental status, unspecified (4) Type 1 diabetes Qualifiers: Qualified Code(s): E10.9 - Type 1 diabetes mellitus without complications
[2018-04-09] MEDS ORDERED: PrednisoLONE Oral Soln 15 MG/5 ML UDC PO SCH (17:00)
[2018-04-09] MEDS ORDERED: Piperacillin/Tazobactam 3.375 GM in Water for inj. (sterile) 20 ML 20 ML IVP ONE (17:26)
[2018-04-09 18:28] LABS: Source,Synovial Fluid RIGHT KNEE
[2018-04-09 20:31] LABS: Appearance,Synovial Fluid Cloudy (Clear-Hazy); Color,Synovial Fluid Straw (Straw)
[2018-04-10] MEDS: *HR* OxyCODONE Immed Rel 5 MG TABLET PO PRN ×3 (01:27→19:39)
[2018-04-10] MEDS: Budesonide/Formoterol 160/4.5 1 PUFF INH IH SCH ×2 (07:30→20:17)
[2018-04-10] MEDS ORDERED: 0.9 % Sodium Chloride 1,000 ML ONE ×2 (08:26→08:27)
[2018-04-10 11:06] LABS: Hematocrit 29.6 % (35.3-44.9); Immature Platelets 13.2 % (1.1-6.1); Mean Corpuscular HGB Conc 33.8 g/dL (31.6-35.5); Mean Corpuscular Hemoglobin 29.2 pg (28.0-33.3); Mean Corpuscular Volume 86.5 fL (83.0-100.0); Mean Platelet Volume 12.1 fL (9.4-12.4); Platelet Count 214 K/mcL (140-400); Red Blood Count 3.42 M/mcL (3.82-4.97); Red Cell Distribution Width 13.3 % (11.5-14.5)
[2018-04-10] MEDS: *HR* Heparin 5,000 UNIT/ML VIAL SQ SCH (11:48)
[2018-04-10] MEDS ORDERED: 0.9 % Sodium Chloride 1,000 ML IVC ONE ×3 (11:48→11:55)
[2018-04-10] MEDS: Insulin LISPRO 300 UNITS/3 ML VIAL SQ SCH ×4 (11:50→20:35)
[2018-04-10] MEDS: Multivit/Ca/Min/Fe/FA 1 TAB TABLET PO SCH (11:51)
[2018-04-10] MEDS: Patient Taking Own Medication 1 EACH SQ SCH (11:51)
[2018-04-10] MEDS: traMADol 50 MG TABLET PO SCH (11:51)
[2018-04-10] MEDS ORDERED: Amiodarone Premix 360 MG/200 ML BAG IVC ONE (11:53)
[2018-04-10] MEDS ORDERED: Amiodarone Premix 150 MG/100 ML BAG IVPB ONE (11:53)
[2018-04-10 12:21] LABS: BUN/Creatinine Ratio 41 (6-26); Blood Urea Nitrogen 42 mg/dL (8-23); Carbon Dioxide 24 mEq/L (23-29); Chloride 90 mEq/L (98-107); Glucose 303 mg/dL (70-105); Osmolality,Calculated 286 (280-300); Potassium 3.7 mEq/L (3.5-5.1); Sodium 127 mEq/L (136-145); eGFR For Non-African Americans 53 (> 60)
[2018-04-10 12:26] LABS: VBG Ionized Calcium 1.17 mmol/L (1.15-1.35)
--- NOTE | 2018-04-10 12:55 | Cardiology Consult Note ---
<Kaden Upton - Last Filed: 04/10/18 13:32> Date of Encounter: 04/10/18 Time of Encounter: 13:00 Assessment and Plan (1) Shoulder subluxation, left Current Visit: Yes Status: Acute Per Cardiology: Management per primary service. Qualifiers: Encounter type: initial encounter Qualified Code(s): S43.002A - Unspecified subluxation of left shoulder joint, initial encounter (2) Arthritis of right knee Current Visit: Yes Status: Acute Per Cardiology: Management per primary service. (3) Leukocytosis (leucocytosis) Current Visit: Yes Status: Acute Per Cardiology: White blood cell count is noted to elevate from 10-31. Afebrile currently, noted to have Tmax during stay 103. Management per primary service. On antibiotics. Suspect driving A. fib with RVR. Of note, patient also hypotensive and receiving IV fluids. Qualifiers: Leukocytosis type: unspecified Qualified Code(s): D72.829 - Elevated white blood cell count, unspecified (4) Atrial fibrillation with RVR Current Visit: Yes Status: Acute Per Cardiology: Suspect in response to leukocytosis and concerns of septic knee. Troponin negative 1. TSH management per primary service. Magnesium noted to be 1.6. Seen upon arrival to higher daily bed with amiodarone drip being initiated. IV fluids infusing. Clinically stable. At this juncture, per lengthy discussion with family and patient I believe she would like to be full code. Social work consult placed. We will monitor telemetry with amiodarone. Check echocardiogram once rate controlled. Regarding long-term anticoagulation, H&H currently stable and denies any active bleeding or blood loss. Appears to not have history of falling. We will initiate IV heparin drip for now and continue to monitor. We will need to address long-term anticoagulation based on hospital course and prior to d ischarge. Discussion w patient/family: The assessment and plan as outlined above was discussed with the patient and/or family members who expressed understanding and agreement. All questions were answered. Thank you for involving us in the care of your patient. Please call with any questions. Patient to be discussed and reviewed with Dr. Misael Meza. I had lengthy dis cussion with patient and family regarding plan of care. All questions answered. History of Present Illness Consult date: 04/10/18 Requesting physician: Miko Barnett Consult reason: Afib RVR Chief complaint: Knee pain History of present illness: Ms. Mckeon is a 77 year old female with a relevant past medical history of DM 2, HTN, asthma, osteoarthritis. Cardiology consult for Jaskaran quinonez with RVR. Previous medical records reviewed and patient presented with left shoulder subluxation and severe right knee pain with mental status changes. Patient seen with multiple family members at bedside. Patient reports she came to the ER for concerns of right knee pain and left shoulder pain. Prior to admission reports active doing yard work outside and works at [employer] 3rd shift. Family denies any history of falls. Patient reports intermittent confus ion at times which is her baseline. She denies any active bleeding or blood loss. Denies any chest pain or palpitations. Report expect some dizziness earlier today. Reports current right knee pain about a 1 out of 10. Denies any recent fever, chills, nausea, vomiting, diarrhea. Eyes a known history of atrial fibrillation. Past Med Surg Social Fam HX - Past Medical History Attestation: Yes The following information was validated with the patient. Source: patient, old records reviewed Medical history: arthritis, asthma, diabetes, hypertension Psychiatric history: no psych history - Past Surgical History Additional surgical history: skin cancer removed - Social History Smoking Status: Never smoker Smokeless Tobacco Status: No Alcohol use: none Drug use: none - Family History Father Living Status: Age at : 94 Cause of : failure to thrive Mother Living Status: Age at : 93 Cause of : failure to thrive Medications and Allergies Albuterol Sulfate [Ventolin Hfa] 2 puff IH Q4H PRN 04/06/18 [History] Esomeprazole Magnesium [Nexium] 40 mg PO DAILY 04/06/18 [History] Insulin ASPART [NovoLOG] 0 unit SQ AD 04/06/18 [History] Lisinopril/Hydrochlorothiazide [Zestoretic 20-25 mg Tablet] 1 tab PO DAILY 04/06/18 [History] Meloxicam 15 mg PO DAILY 04/06/18 [History] Methyl Salicylate/Menthol [Salonpas Patch] 1 patch TP DAILY PRN MDD N 04/06/18 [History] Montelukast [Singulair] 10 mg PO DAILY 04/06/18 [History] Multivitamin [One Daily Essential] 1 tab PO DAILY 04/06/18 [History] RX: Budesonide/Formoterol 160/4.5 [Symbicort 160/4.5] 2 puff PO BID 04/06/18 [History] Tramadol HCl [Ultram] 50 mg PO DAILY 04/06/18 [History] predniSONE [PredniSONE] 60 mg PO DAILY 04/06/18 [History] Allergy/AdvReac Type Severity Reaction Status Date / Time No Known Allergies Allergy Verified 04/06/18 10:17 All Systems Review: The remainder of the systems were reviewed and are negative - Constitutional Constitutional: fatigue - Cardiovascular Cardiovascular: as per HPI, lightheadedness - Musculoskeletal Musculoskeletal: arthralgias Physical Examination Selected Entries 04/09/18 23:28 04/10/18 07:30 04/10/18 10:15 Temperature 98.4 F Pulse Rate 123 Respiratory Rate 18 O2 Sat by Pulse Oximetry 91 Fraction of Inspired Oxygen % 28 Oxygen Flow Rate (LPM) 4 Oxygen Delivery Method Nasal Cannula General: Conversant, No Apparent Distress, Other (Appears older than chronological age) HEENT: Atraumatic, Normocephaly Cardiac: No Murmur, Other (Irregularly irregular) Lungs: Other (Breast sounds diminished bilateral bases) Neuro: Alert and responsive, No focal deficits noted, Other (Alert and 3 cooperative, +BRANHAM x 4) Abdomen: Non-Tender Skin: No rashes noted on visualized skin Musculoskeletal: No Chest Wall Tenderness Extremities: No Edema, Normal Pulses Results 04/10/18 03:56 04/10/18 03:56 Lab Results Laboratory Tests 04/06/18 04/06/18 04/07/18 10:31 10:31 03:31 WBC 10.1 Hgb 10.9 L Hct 33.7 L Sodium Potassium Creatinine Est GFR (Non-Af Amer) Hemoglobin A1c 7.8 H Magnesium AST 18 ALT 15 Troponin I < 0.03 TSH 0.248 L Free T4 1.25 Free T3 3.11 04/07/18 04/10/18 03:31 03:56 WBC Hgb Hct Sodium 127 L Potassium 3.7 Creatinine 1.02 Est GFR (Non-Af Amer) 53 L Hemoglobin A1c Magnesium 1.6 AST ALT Troponin I TSH Free T4 Free T3 ITS Impressions Chest X-Ray 10/14/18 10:13 IMPRESSION: No acute process in the lungs. Severe bilateral glenohumeral joint osteoarthritis with likely left glenohumeral joint effusion. D/ / Daniel Rockwell MD / Daniel Rockwell MD Interpreting Provider: Daniel Rockwell MD Head CT 04/06/18 10:14 IMPRESSION: 1. No acute intracranial process identified. 2. Mild chronic small vessel ischemic changes. D/ / Donavan Wahl MD / Donavan Wahl MD Interpreting Provider: Donavan Wahl MD Knee X-Ray 04/06/18 11:20 IMPRESSION: Tricompartmental joint space narrowing with marginal osteophytes as well as tricompartmental chondrocalcinosis. This may represent osteoarthritis and/or CPPD arthropathy. Large intra-articular loose body measuring up to 20 mm in size in the lateral suprapatellar bursa. D/ / 04/06/2018 12:05:59 Daniel Rockwell MD / donna Interpreting Provider: Daniel Rockwell MD Brain MRI 04/07/18 14:47 IMPRESSION: No acute intracranial abnormality. Mild chronic microvascular ischemic disease. D/ / 04/07/2018 13:49:57 Joy Larios MD / earnold Interpreting Provider: Joy Larios MD Shoulder X-Ray 04/07/18 18:04 IMPRESSION: Severe left glenohumeral joint osteoarthritic degenerative changes with large marginal osteophytes, subchondral changes and bony remottling. Calcification suggesting calcific tendinosis of the rotator cuff. No acute fracture or dislocation. D/ / Daniel Rockwell MD / Daniel Rockwell MD Interpreting Provider: Daniel Rockwell MD Knee MRI 04/09/18 15:35 IMPRESSION: 1. Nonspecific stippled and heterogeneous appearance of the bone marrow within the distal femur, proximal tibia, and proximal fibula. There is also nonspecific, fairly well-circumscribed intramuscular fluid extending along the myotendinous junction of the popliteus and within the anterior compartment musculature. This is seen with associated intramuscular edema of the anterior and posterior compartments and also nonspecific surrounding soft tissue edema. A moderate joint effusion is also present which is nonspecific. Please note sterility of joint fluid is indeterminate on imaging. Infectious process should be excluded. 2. Tricompartmental moderate to severe osteoarthritis of the knee which is most pronounced within the patellofemoral compartment. Large intra-articular body also present measuring 1.6 x 2.1 x 1.6 cm. 3. Degenerative fraying/free edge tearing of the posterior horn lateral meniscus and degenerative free edge fraying of the medial meniscus. 4. Tricompartmental chondromalacia which is grade 4 within the patellofemoral compartment, grade 3 within the medial compartment, and grade 2 within the lateral compartment. D/ / Urbano Madrid MD / Urbano Madrid MD Interpreting Provider: Urbano Madrid MD Active Medications Acetaminophen (Tylenol) 650 mg PO Q6HR PRN PRN Reason: Fever Stop: 10/06/18 21:03 Last Admin: 04/07/18 23:03 Dose: 650 mg Albuterol Sulfate (Albuterol Inhaler) 2 puff IH Q4H PRN PRN Reason: Shortness Of Breath Stop: 10/06/18 14:37 Budesonide/Formoterol Fumarate (Symbicort) 2 puff IH BID [facility]; Protocol Stop: 10/06/18 21:01 Last Admin: 04/10/18 07:30 Dose: 2 puff Cyclobenzaprine HCl (Flexeril) 5 mg PO BID PRN PRN Reason: Muscle Spasm Stop: 10/08/18 10:42 Heparin Sodium (Porcine) (Heparin) 5,000 unit SQ Q12HCO [facility] Stop: 10/06/18 18:01 Last Admin: 04/10/18 11:48 Dose: Not Given Piperacillin Sod/Tazobactam (Sod 3.375 gm/ Sodium Chloride) 100 mls @ 25 mls/hr IVPB Q8HR [facility] Stop: 10/10/18 10:31 Amiodarone HCl/Dextrose (Amiodarone Drip Premix 360mg/200ml) 360 mg in 200 mls @ 33.333 mls/hr IVC ONCE ONE Stop: 04/10/18 17:52 Amiodarone HCl/Dextrose (Amiodarone Drip Premix 360mg/200ml) 360 mg in 200 mls @ 16.667 mls/hr IVC CONT [facility] Stop: 10/10/18 12:01 Vancomycin HCl 1,000 mg/ (Sodium Chloride) 250 mls @ 167 mls/hr IVPB Q24H [facility]; Protocol Stop: 10/11/18 09:01 Ibuprofen (Motrin) 400 mg PO Q6HR PRN PRN Reason: FEVER/PAIN Stop: 10/08/18 10:43 Last Admin: 04/09/18 22:29 Dose: 400 mg Insulin Human Lispro (Humalog) 0 units SQ TIDAC [facility]; Protocol Stop: 10/08/18 11:31 Last Admin: 04/10/18 11:50 Dose: 12 units Insulin Human Lispro (Humalog) 0 units SQ HS [facility]; Protocol Stop: 10/08/18 21:01 Last Admin: 04/09/18 20:34 Dose: 2 units Lidocaine HCl (Lidoderm 5% Patch) 1 each TP DAILY [facility] Stop: 10/10/18 09:01 Last Admin: 04/10/18 11:51 Dose: 1 each Montelukast Sodium (Singulair) 10 mg PO DAILY [facility] Stop: 10/07/18 09:01 Last Admin: 04/10/18 11:51 Dose: 10 mg Multivitamins/Calcium (Thera M Plus) 1 tab PO DAILY [facility] Stop: 10/07/18 09:01 Last Admin: 04/10/18 11:51 Dose: 1 tab Naloxone HCl (Narcan) 0.4 mg IVP Q2MIN PRN PRN Reason: SEE COMMENTS Stop: 10/06/18 14:35 Omeprazole (Prilosec) 40 mg PO DAILY [facility]; Protocol Stop: 10/07/18 09:01 Last Admin: 04/10/18 11:51 Dose: 40 mg Ondansetron HCl (Zofran) 4 mg IVP Q6HR PRN; Protocol PRN Reason: Nausea And Vomiting Stop: 10/06/18 16:53 Oxycodone HCl (Roxicodone) 5 mg PO Q4HR PRN; Protocol PRN Reason: Pain Stop: 10/06/18 15:45 Last Admin: 04/10/18 08:00 Dose: 5 mg Pharmacy Profile Note (Patient Taking Own Medication) 10 each SQ AD [facility] Stop: 10/06/18 14:46 Last Admin: 04/10/18 11:51 Dose: Not Given Tramadol HCl (Ultram) 50 mg PO DAILY [facility] Stop: 10/07/18 09:01 Last Admin: 04/10/18 11:51 Dose: 50 mg - Imaging and Cardiology Echo: pending (Atrial fibrillation) - EKG Interpretation EKG results cardiology: personally reviewed, other (A. fib with RVR 110s to 130s on telemetry) Consult Discharge Plan - Plan Referrals: Anish Live, [Partnered Physician] - <Misael Meza - Last Filed: 04/11/18 09:42> - Attending Attestation I have personally performed a face to face evaluation on this patient. I have reviewed and agree with the care plan. History and Exam by me shows: AF wirg RVR in setting of possible sepsis. Would rate control and anticoagulate, agree with current mgmt. When heart rate controlled, can proceed with surgery if needed. Assessment and Plan Discussion w patient/family: The assessment and plan as outlined above was discussed with the patient and/or family members who expressed understanding and agreement. All questions were answered. Thank you for involving us in the care of your patient. Please call with any questions. History of Present Illness History of present illness: Ms. Mckeon is a 77 year old female All Systems Review: The remainder of the systems were reviewed and are negative Physical Examination Vital Signs, Last 4 Hours Temp Pulse Resp BP Pulse Ox 04/11/18 09:34 97.5 F L 96 19 107/50 100 04/11/18 07:56 18 100 04/11/18 07:00 98.2 F 93 20 102/47 100 Results 04/10/18 15:12 04/11/18 05:33 Lab Results 04/10/18 04/10/18 04/10/18 03:56 03:56 09:39 WBC 31.7 H* D Hgb 10.0 L Hct 29.6 L Plt Count 214 INR D-Dimer Sodium 127 L 127 L Potassium 3.7 3.3 L Chloride 90 L 93 L Carbon Dioxide 24 18 L BUN 42 H 51 H Creatinine 1.02 1.47 H Glucose 303 H 386 H Calcium 9.0 8.7 Total Bilirubin 1.1 H AST 30 ALT 15 Alkaline Phosphatase 178 H Troponin I 0.03 04/10/18 04/10/18 04/10/18 11:00 15:12 15:12 WBC 24.0 H Hgb 9.6 L Hct 29.2 L Plt Count 227 INR 1.0 D-Dimer 5840 H Sodium Potassium Chloride Carbon Dioxide BUN Creatinine Glucose Calcium Total Bilirubin AST ALT Alkaline Phosphatase Troponin I 04/11/18 05:33 WBC Hgb Hct Plt Count INR D-Dimer Sodium 129 L Potassium 3.5 Chloride 96 L Carbon Dioxide 18 L BUN 57 H Creatinine 1.02 Glucose 404 H Calcium 8.3 L Total Bilirubin AST ALT Alkaline Phosphatase Troponin I
[2018-04-10] MEDS ORDERED: 0.9 % Sodium Chloride 500 ML ONE (13:05)
[2018-04-10] MEDS ORDERED: 0.9 % Sodium Chloride 500 ML IVC ONE (13:07)
[2018-04-10 13:08] LABS: Neutrophils # 29.8 K/mcL (1.6-8.9); Platelet Estimate Normal (Normal)
[2018-04-10] MEDS: Piperacillin/Tazobactam 3.375 GM in 0.9 % Sodium Chloride Mini Bag 100 ML IVPB SCH ×3 (13:09→23:35)
--- NOTE | 2018-04-10 13:13 | Rheumatology Progress Note ---
<Prakash Reinoso - Last Filed: 04/10/18 14:05> Date of Encounter: 04/10/18 Time of Encounter: 13:10 Rheumatology Assess and Plan (1) Calcium pyrophosphate arthropathy Current Visit: Yes Status: Acute 77F with history of osteoarthritis presents with intermittent altered mental status, severe left shoulder and right knee pain. Left shoulder xray: severe glenohumeral osteoarthritic changes with large marginal osteophytes, subchondral sclerosis, calcific tendonitis. Right knee xray: tricompartmental joint space narrowing with osteophytes. Uric acid: 4.3 RF negative 04/09: Right knee arthrocentesis performed with about 10cc yellow, purulent fluid obtained. Fluid analysis showed CPPD crystals, many gram positive cocci. Assessment: suspect etiology of her arthralgias are multifactorial in setting of CPPD arthopathy and possible septic joint. It is also likely that CPPD arthropathy is also contributing to her intermittent altered mental status, as this can present in elderly patients. Plan: Discussed case with ortho regarding possibility of septic joint. Appreciate their recommendations. sepsis workup and Antibiotic coverage per primary team. Will continue to hold off on steroid injections in setting of sepsis. CCP Pending. Will continue to follow as inpatient. Please note, rheumatology service will not round again until Saturday. - Subjective Interval history: 77F evaluated at bedside. She denies nausea, vomiting, diarrhea, fever, chills, chest pain, shortness of breath. She continues to have significant left shoulder and right knee pain. Exam Vital Signs, Last 4 Hours Temp Pulse Resp BP Pulse Ox 04/10/18 13:02 97.4 F L 138 18 84/57 100 Exam: General: alert and oriented x3. No acute distress. afebrile, tachycardic, hypotensive. ENT: normal inspection of ears, nose, nasal and oral mucosa. Oral mucosa appears moist. No lesions or masses of the lips or gums. CV: tachycardic, normal S1, S2, no murmurs, rubs, gallops, or thrills appreciated. +1 bilateral lower extremity pitting edema present up to the mid calf area. Eyes: no scleral icterus, PERRL, intact extraocular movements, normal appearing conjunctiva and eyelids. Respiratory: normal respiratory effort, no intercostal retraction or accessory muscle use. No dullness to percussion. Lungs clear to auscultation bilaterally. GI: abdomen obese, soft, mildly distended, notenderness to palpation. Bowel sounds present. No organomegaly or hernias appreciated. SKin: No ulcers or rashes noted. nail exam normal. neuro: cranial nerves 2-12 intact, no focal deficits. No pathologic reflexes present. intact sensation. gait could not be assessed due to joint pain. MSK: No clubbing or cyanosis of the extremities present. Shoulders: patient could not abduct right shoulder past 90 degrees. Right shoulder was warm without any erythema or tenderness. Left shoulder warm with 2cm mobile mass present. could not ABduct left shoulder at all. Patient reported severe pain with any manipulation of the left upper extremity wrists/hands: full ROM, no erythema, warmth, tenderness. 2nd MCP enlargement. No MCP, PIP, or DIP tenderness appreciated. Haberdens nodes present. Left knee: no warmth or erythema, or effusion. No laxity on varus or valgus stress. Anterior drawr test negative. Right knee: no erythema or warmth. Mild effusion present on the right knee with severe tenderness to flexion, extension, palpation of the right knee. Full physical exam could not be performed due to pain. Ankles: normal ROM, no pain, warmth, erythema. bilateral enlarged 1st MTP joints without tenderness. Bilateral metatarsals show lateral deviation. Muscle strength: 4/5 on upper and lower extremities. Objective Data 04/10/18 03:56 04/10/18 03:56 Immunology Rheumatoid Factor < 10 IU/mL (Less than 14) 04/09/18 13:08 All other labs normal. Consult Discharge Plan - Plan Referrals: Anish Live DO [Partnered Physician] - 04/11/18 1:00 pm NONE,PCP [Primary Care Provider] - <Bob Morales - Last Filed: 04/10/18 16:27> Exam Vital Signs, Last 4 Hours Temp Pulse Resp BP Pulse Ox 04/10/18 16:02 98.7 F 139 16 98/63 100 04/10/18 15:58 130 04/10/18 15:45 120 82/48 04/10/18 15:15 129 84/62 04/10/18 14:30 124 78/56 04/10/18 14:15 139 18 85/47 100 04/10/18 14:00 146 98/57 04/10/18 13:45 149 18 87/58 99 04/10/18 13:30 162 112/69 04/10/18 13:15 131 94/55 04/10/18 13:02 97.4 F L 138 18 84/57 100 Objective Data 04/10/18 03:56 04/10/18 09:39 Immunology Rheumatoid Factor < 10 IU/mL (Less than 14) 04/09/18 13:08 All other labs normal. - Attending Attestation I examined this patient and my medical decision making was reviewed with the resident physician. I agree with the documented findings, disposition and rupinder tment as described with these exceptions. Yesterday, arthrocentesis purulent, gram positive cocci and cystals noted. Broad spectrum antibiotics started. MRI performs showing fluid collection. Ortho and ID consulted. At this time, she has an inflammatory arthritis. While CPPD crystals noted, leukocytosis tachycardia and some fevers throughout hospital stay with positive gram stain, need to treat for septic joint. Medicine, ID and ortho following. Discussed with ID. On coverage. Cultures pending. I will be back on Saturday and will round on patient.
[2018-04-10] MEDS ORDERED: Piperacillin/Tazobactam 3.375 GM VIAL IVPB ONE (13:25)
[2018-04-10] MEDS ORDERED: Vancomycin 1,000 MG VIAL IVPB ONE ×3 (13:25)
[2018-04-10] MEDS ORDERED: 0.9 % Sodium Chloride 500 ML IV.SOLN IV ONE (13:25)
[2018-04-10] MEDS ORDERED: 0.9 % Sodium Chloride (Mini-Bag +) 100 ML IVBAG IVC ONE ×2 (13:25)
[2018-04-10] MEDS ORDERED: *HR* Heparin 5,000 UNIT/ML VIAL IVP PRN ×2 (13:27)
[2018-04-10] MEDS ORDERED: Multivit/Ca/Min/Fe/FA 1 TAB TABLET PO ONE (13:28)
[2018-04-10] MEDS ORDERED: *HR* Heparin 5,000 UNIT/ML VIAL IVP ONE (13:28)
[2018-04-10] MEDS ORDERED: *HR* OxyCODONE Immed Rel 5 MG TABLET PO ONE (13:28)
[2018-04-10] MEDS ORDERED: traMADol 50 MG TABLET PO ONE (13:28)
[2018-04-10] MEDS ORDERED: Ibuprofen 400 MG TABLET PO ONE (13:28)
[2018-04-10] MEDS ORDERED: 0.9 % Sodium Chloride 1,000 ML IV.SOLN IV ONE ×2 (13:28)
--- NOTE | 2018-04-10 13:41 | Electrocardiograph Report ---
[address] [address] Test Date: 2018-04-10 Pat Name: Marsha Mckeon Department: 113 Room: 2N09 Gender: F [employer] Administrator: : [id number] Requested By: [id number] Order Number: [id number] Reading MD: Kena Martínez Measurements Intervals [place] Rate: 153 P: NM: 0 QRS: 28 QRSD: 93 T: 48 QT: 279 QTc: 366 Interpretive Statements ATRIAL FIBRILLATION WITH RAPID VENTRICULAR RESPONSE WITH ABERRANT CONDUCTION OR VENTRICULAR PREMATURE COMPLEXES ABNORMAL RHYTHM ECG Electronically Signed On 04-10-2018 13:40:40 EDT by Kena Martínez
--- NOTE | 2018-04-10 13:56 | Infectious Disease Consult ---
Date of Encounter: 04/10/18 Time of Encounter: 13:03 Assessment and Plan (1) Sepsis Status: Acute Assessment and plan: Had 3 SIRS criteria on admission Secondary to septic arthritis in the right knee Qualifiers: Sepsis type: sepsis due to unspecified organism Qualified Code(s): A41.9 - Sepsis, unspecified organism (2) Septic arthritis of knee, right Status: Acute Assessment and plan: Symptoms started about 5 days prior to admission Causative organism gram-positive cocci final ID pending Fluid analysis is not done yet; I called microbiology lab and they said they will run the fluid analysis and cell count and call me back I spoke with Dr. Ochoa from rheumatology and he said he had purulence coming out With appreciate or so to reevaluate Agree with broad-spectrum antibiotics until cultures finalize and susceptibility Goal vancomycin trough around 15 Await blood cultures to finalize Dose adjust based on creatinine clearance Monitor labs and for drug toxicity Duration of treatment depends on the clinical picture. Qualifiers: Septic arthritis organism: staphylococcal Qualified Code(s): M00.061 - Staphylococcal arthritis, right knee (3) Left shoulder pain Status: Acute Assessment and plan: Imaging reviewed No obvious infectious etiology Appreciate orthodontic rheumatology recommendations Qualifiers: Chronicity: chronic Qualified Code(s): M25.512 - Pain in left shoulder; G89.29 - Other chronic pain (4) Constipation Status: Acute Assessment and plan: Resolved Qualifiers: Constipation type: unspecified constipation type Qualified Code(s): K59.00 - Constipation, unspecified (5) Altered mental status Status: Acute Assessment and plan: Likely secondary to pneumonia Resolved Qualifiers: Altered mental status type: unspecified Qualified Code(s): R41.82 - Altered mental status, unspecified (6) Atrial fibrillation with RVR Status: Acute (7) Calcium pyrophosphate arthropathy Status: Acute Infectious Disease HPI - Data of Consult Patient: new to practice Consult date: 04/10/18 Requesting Physician: Carmelita Luque MD Primary Care Provider: PCP NONE - Consult Narrative Reason for consult: Septic arthritis History of present illness: Ms. Mckeon is a 77 year old female Patient is 77-year-old woman who presented to [facility] on 04/06/2018 for alternative statuses, left shoulder pain, shoulder subluxation. We are consulted on 04/10/2018 for septic arthritis of the right knee. Patient has a past medical history osteoarthritis, diabetes mellitus type 2 diagnosed 5 years ago insulin-dependent, asthma who stated that about 1 week prior to admission about 04/01/2018 she was working in the midnight shift at [employer] when she started having severe worsening shoulder pain on the left side. Patient has chronic shoulder pain but this was progressively worse than usual. Patient presented to her primary care physician with Family. Family reports no imaging done at this time and that they gave her oral steroids. Steroids have not helped pain. Patient developed right knee pain and swelling around 04/04/18. Patient has been bedridden in pain since 04/04/2018. Family reports patient has had a subjective fever, chills, weakness and constipation since Saturday. Family notes patient has had intermittent episodes of confusion since 04/05/18. Patient family believes no medication allergies. Patient's family reports no metal hardware in body. On review of systems patient denied any URI symptoms. No rhinorrhea no sinus pressure no sore throat. Patient denied any chest pain or shortness of breath or cough. No nausea or vomiting diarrhea or constipation. No urinary symptoms. Patient has chronic joint pain. No rash. Patient denies any recent dental work or toothache. On admission, patient was febrile with a MAXIMUM TEMPERATURE of 103 Fahrenheit. Patient was tachycardic, hemodynamically stable. On presentation her WC was 10.3 with 18% bands. Today WBC jumped to 31.7. Presenting labs revealed a BUN of 33 creatinine of 0.88. A urine culture was obtained and it revealed no pyuria. Patient had an arthrocentesis of the right knee on 04/09/2018 and the cell count is still pending. Rheumatoid factor was obtained and it was normal. Gram stain of the arthrocentesis was positive for gram-positive cocci. There was also many white blood cell count. MRI of the knee revealed nonspecific stippled and heterogeneous appearance of the bone marrow within the distal femur proximal tibia and proximal fibula. There is also nonspecific, fairly well cir cumscribed intramuscular fluid extending along them myotendinous junction of the popliteus with the anterior compartment musculature. There is seen with associated intramuscular edema of the anterior and posterior compartments and also nonspecific surrounding soft tissue edema. A moderate joint effusion is also present which is nonspecific. Tricompartmental moderate to severe osteoarthritis of the knee which is most pronounced within the patellofemoral compartment. Large intra-articular body also present measuring 1.62.11.6 cm large intra-articular body. Patient was seen by rheumatology and orthopedics and the recommendations appreciated. Currently patient laying in bed. She is somnolent but awake alert oriented. Family at bedside. Review of systems unremarkable other than shoulder pain and knee pain. CC: Carmelita Luque MD Past Med Surg Social Fam HX - Past Medical History Medical history: arthritis, asthma, diabetes, hypertension Psychiatric history: no psych history - Past Surgical History Additional surgical history: skin cancer removed - Social History Smoking Status: Never smoker Smokeless Tobacco Status: No Alcohol use: none Drug use: none - Family History Father Living Status: Age at : 94 Cause of : failure to thrive Mother Living Status: Age at : 93 Cause of : failure to thrive Infectious Disease-CN:Meds Albuterol Sulfate [Ventolin Hfa] 2 puff IH Q4H PRN 04/06/18 [History] Esomeprazole Magnesium [Nexium] 40 mg PO DAILY 04/06/18 [History] Insulin ASPART [NovoLOG] 0 unit SQ AD 04/06/18 [History] Lisinopril/Hydrochlorothiazide [Zestoretic 20-25 mg Tablet] 1 tab PO DAILY 04/06/18 [History] Meloxicam 15 mg PO DAILY 04/06/18 [History] Methyl Salicylate/Menthol [Salonpas Patch] 1 patch TP DAILY PRN MDD N 04/06/18 [History] Montelukast [Singulair] 10 mg PO DAILY 04/06/18 [History] Multivitamin [One Daily Essential] 1 tab PO DAILY 04/06/18 [History] RX: Budesonide/Formoterol 160/4.5 [Symbicort 160/4.5] 2 puff PO BID 04/06/18 [History] Tramadol HCl [Ultram] 50 mg PO DAILY 04/06/18 [History] predniSONE [PredniSONE] 60 mg PO DAILY 04/06/18 [History] Allergy/AdvReac Type Severity Reaction Status Date / Time No Known Allergies Allergy Verified 04/06/18 10:17 Review of systems: 10 point review of systems done, negative other for what is mentioned in history of present illness Exam - Constitutional Vitals: Temp Pulse Resp BP Pulse Ox 98.4 F 123 18 111/68 91 04/09/18 23:28 04/09/18 23:28 04/10/18 07:30 04/09/18 23:28 04/10/18 07:30 General appearance: cooperative, no febrile - Head Head exam: Present: atraumatic, normocephalic - Eye Eye exam: Present: EOMI, PERRL, sclera anicteric Additional comments: No conjunctival hemorrhage - ENT ENT exam: Present: mucous membranes dry Additional comments: No oral lesions - Neck Neck exam: Present: full ROM, normal inspection. Absent: meningismus - Respiratory Respiratory exam: Absent: accessory muscle use, rhonchi, wheezes Additional comments: Good air sounds bilaterally. - Cardiovascular Cardiovascular exam: Present: RRR, +S1, +S2 - GI/Abdominal GI/Abdominal exam: Present: soft. Absent: tenderness - Extremities Exam Additional comments: Right knee swelling and warm to touch and decreased range of motion there is really no erythema. Left shoulder pain and decreased range of motion and some swelling also no erythema. Right shoulder with a scar from previous lipoma - Back Exam Back exam: Present: normal inspection. Absent: CVA tenderness (L), CVA tenderness (R), vertebral tenderness - Neurological Exam Neurological exam: Present: alert, oriented X3, no focal deficits - Psychiatric Psychiatric exam: Present: normal affect, normal mood - Skin Skin exam: Absent: rash Additional comments: No endocarditis stigmata Infectious Disease CN: Results - Labs CBC & Chem 7: 04/11/18 09:21 04/11/18 05:33 Cultures: Cultures 04/09/18 12:30 Body Fluid Culture - Preliminary Synovial Fluid Serology: Serology 04/09/18 04/09/18 04/06/18 Range/Units 12:30 12:30 11:55 Ur Specimen Adequacy See below A Urine Color Yellow (Yellow) Urine Clarity Clear (Clear) Urine pH 5.5 (5.0-8.0) pH Units Ur Specific [place] 1.014 (1.010-1.025) Urine Protein 30 H (Neg-Trace) mg/dL Urine Glucose (UA) 250 H (Normal) mg/dL Urine Ketones Negative (Negative) mg/dL Urine Blood Small H (Negative) Urine Nitrite Negative (Negative) Urine Bilirubin Negative (Negative) Urine Urobilinogen Normal (Normal) mg/dL Ur Leukocyte Esterase Negative (Negative) Urine Microscopic RBC 5-15 H (0-3) per hpf Urine Microscopic WBC 0-3 (0-3) per hpf Ur Squamous Epith Cells Many H (None-Few) per lpf Urine Bacteria None Seen (None-Few) per hpf Hyaline Casts Test Not Performed Ur Culture Indicated? NO (NO) Fluid Crystals CPPD Crystals Seen A (None Seen) Synovial Source RIGHT KNEE Synovial Color Straw (Straw) Synovial Appearance Cloudy A (Clear-Hazy) Synovial Volume 8.0 mL Synovial RBC Pending Synovial Tot Nuc Cell Pending Synovial Band Neuts Pending Synovial Basophils Pending Synovial Eosinophils Pending Synovial Seg Neuts % Pending Synovial Lymphocytes % Pending Synovial Monocytes % Pending Synovial Other Cells % Pending Consult Discharge Plan - Plan Referrals: Anish Live DO [Partnered Physician] -
[2018-04-10] MEDS: Heparin 25,000 UNIT/500 ML D5W 25,000 UNIT/500 ML BAG IVC SCH (14:10)
[2018-04-10 16:17] LABS: Bilirubin,Total 1.1 mg/dL (0.3-1.0); Calcium 8.7 mg/dL (8.6-10.3); Potassium 3.3 mEq/L (3.5-5.1); Total Protein 5.6 g/dL (6.4-8.9)
[2018-04-10 16:18] LABS: Albumin 2.2 g/dL (3.5-5.7); Albumin/Globulin Ratio 0.6 (1.1-2.2); Globulin 3.4 g/dL (2.4-3.5); Troponin I 0.03 ng/mL (< 0.04)
[2018-04-10 16:32] LABS: Hematocrit 29.2 % (35.3-44.9); Hemoglobin 9.6 g/dL (11.5-15.4); Mean Corpuscular HGB Conc 32.9 g/dL (31.6-35.5); Mean Corpuscular Hemoglobin 29.1 pg (28.0-33.3); Mean Corpuscular Volume 88.5 fL (83.0-100.0); Mean Platelet Volume 12.5 fL (9.4-12.4); Platelet Count 227 K/mcL (140-400); Red Cell Distribution Width 13.4 % (11.5-14.5)
[2018-04-10 16:44] LABS: Heparin anti-factor XA UFH 0.09 IU/mL (0.30-0.70); Prothrombin Time 11.7 Seconds (9.4-12.1)
--- NOTE | 2018-04-10 16:59 | Orthopedics Progress Note ---
Date of Encounter: 04/10/18 Time of Encounter: 15:15 - Assessment and Plan (1) Arthritis of right knee Current Visit: Yes Status: Acute Rheumatology assessed patient and performed knee aspiration yesterday which showed G+ cocci with many WBC and many epithelial cells. fluid also showed positive for CPPD crystals. She has been started on vancomycin and zosyn. Blood cx negative preliminary. Discussed with Dr. Fournier - scheduled for right knee washout tomorrow for possible septic joint. Again joint is mildly swollen but no noted erythema or significant warmth that would be expected with a septic joint. NPO after midnight in preparation for surgery tomorrow pending cardiac clearance. Patient has become tachycardic with afib and transferred to cardiac unit with heparin drip. Sepsis workup per primary team. Pain per hospitalist team. (2) Left shoulder pain Current Visit: Yes Status: Acute shoulder xrays showed "Severe left glenohumeral joint osteoarthritic degenerat connie changes with large marginal osteophytes, subchondral changes and bony remottling. Calcification suggesting calcific tendinosis of the rotator cuff. No acute fracture or dislocation". Discussed with Dr. Veliz and appears to be flair of her chronic arthritis pain. No erythema, swelling or warmth to suggest septic joint. Work on motion as tolerated. Recommend PT/OT eval for motion. Pain control per hospitalist. Ice as needed. She does follow with Dr. De Paz for this but she prefers to not return to him. Will schedule follow up with sports medicine outpatient for further OA management as she is not interested in any surgical intervention at this time and has had previous joint injection with little improvement. Will reschedule appt once discharged. Qualifiers: Chronicity: chronic Qualified Code(s): M25.512 - Pain in left shoulder; G89.29 - Other chronic pain Subjective Principal diagnosis: left shoulder pain, right knee pain Interval history: S: Patient states she is feeling a little better right now but per family she is saying this so that no one will move her joints. She continues to display some confusion and is sleepy. O: left shoulder - continued limited ROM secondary to pain. Patient will not allow me to move shoulder and winces in pain with gentle motion of bilateral elbows. no erythema or warmth noted. No swelling noted. right knee - continued limited AROM, patient refuses to allow PROM secondary to pain. No erythema or warmth. mild significant swelling.no calf tenderness. Objective Vital signs: Vital Signs Temp Pulse Resp BP Pulse Ox 04/10/18 16:30 86 89/54 04/10/18 16:02 98.7 F 139 16 98/63 100 04/10/18 15:58 130 04/10/18 15:45 120 82/48 04/10/18 15:15 129 84/62 04/10/18 14:30 124 78/56 04/10/18 14:15 139 18 85/47 100 04/10/18 14:00 146 98/57 04/10/18 13:45 149 18 87/58 99 04/10/18 13:30 162 112/69 04/10/18 13:15 131 94/55 04/10/18 13:02 97.4 F L 138 18 84/57 100 04/10/18 07:30 18 91 04/09/18 23:28 98.4 F 123 22 111/68 94 04/09/18 20:27 98.5 F 120 16 124/70 93 Intake and Output 04/10/18 04/10/18 04/10/18 07:59 15:59 23:59 Output Total 200 / 200 Balance -200 / -200 Output: Urine 200 / 200 Other: Blood Glucose* 242 - Labs CBC & BMP: 04/10/18 15:12 04/10/18 09:39 Labs: Abnormal lab results WBC 24.0 K/mcL (4.3-11.1) H 04/10/18 15:12 RBC 3.30 M/mcL (3.82-4.97) L 04/10/18 15:12 Hgb 9.6 g/dL (11.5-15.4) L 04/10/18 15:12 Hct 29.2 % (35.3-44.9) L 04/10/18 15:12 MPV 12.5 fL (9.4-12.4) H 04/10/18 15:12 Neutrophils # 29.8 K/mcL (1.6-8.9) H 04/10/18 03:56 Immature Plt Fraction 13.2 % (1.1-6.1) H 04/10/18 03:56 D-Dimer 5840 ng/mLFEU (0-500) H 04/10/18 11:00 Heparin Anti-Xa, Unfract 0.09 IU/mL (0.30-0.70) L 04/10/18 15:12 VBG pCO2 33 mmHg (41-51) L 04/06/18 10:45 VBG pO2 84 mmHg (25-50) H 04/06/18 10:45 Sodium 127 mEq/L (136-145) L 04/10/18 09:39 Potassium 3.3 mEq/L (3.5-5.1) L 04/10/18 09:39 Chloride 93 mEq/L (98-107) L 04/10/18 09:39 Carbon Dioxide 18 mEq/L (23-29) L 04/10/18 09:39 BUN 51 mg/dL (8-23) H 04/10/18 09:39 Creatinine 1.47 mg/dL (0.60-1.20) H 04/10/18 09:39 Est GFR ( Amer) 42 (> 60) L 04/10/18 09:39 Est GFR (Non-Af Amer) 35 (> 60) L 04/10/18 09:39 BUN/Creatinine Ratio 35 (6-26) H 04/10/18 09:39 Glucose 386 mg/dL (70-105) H 04/10/18 09:39 POC Glucose 377 mg/dL (70-99) H 04/10/18 07:46 Hemoglobin A1c 7.8 % (-5.6) H 04/06/18 10:31 Phosphorus 2.5 mg/dL (2.7-4.5) L 04/07/18 03:31 Total Bilirubin 1.1 mg/dL (0.3-1.0) H 04/10/18 09:39 Alkaline Phosphatase 178 Units/L (34-104) H 04/10/18 09:39 Creatine Kinase 22 Units/L (30-223) L 04/06/18 13:46 C-Reactive Protein 257 mg/L (Less than 10) H 04/10/18 09:39 Serum Total Protein 5.6 g/dL (6.4-8.9) L 04/10/18 09:39 Albumin 2.2 g/dL (3.5-5.7) L 04/10/18 09:39 Albumin/Globulin Ratio 0.6 (1.1-2.2) L 04/10/18 09:39 TSH 0.248 mcIU/mL (0.340-5.600) L 04/06/18 10:31 Ur Specimen Adequacy See below A 04/06/18 11:55 Urine Protein 30 mg/dL (Neg-Trace) H 04/06/18 11:55 Urine Glucose (UA) 250 mg/dL (Normal) H 04/06/18 11:55 Urine Blood Small (Negative) H 04/06/18 11:55 Urine Microscopic RBC 5-15 per hpf (0-3) H 04/06/18 11:55 Ur Squamous Epith Cells Many per lpf (None-Few) H 04/06/18 11:55 Fluid Crystals CPPD Crystals Seen (None Seen) A 04/09/18 12:30 Synovial Appearance Cloudy (Clear-Hazy) A 04/09/18 12:30 Urine Opiates Screen Positive ng/mL ([id number]) H 04/06/18 11:54 Consult Discharge Plan - Plan Referrals: Anish Live DO [Partnered Physician] - 04/11/18 1:00 pm NONE,PCP [Primary Care Provider] -
--- NOTE | 2018-04-10 19:20 | Anesthesia Evaluation PreOp ---
Date of Encounter: 04/10/18 Time of Encounter: 23:15 - Past History Planned Operation: Right Knee Arthroscopy, Washout Cardiac History: HTN, Arrhythmia (A-Fib with RVR) Pulmonary History: Asthma [employer] History: Denies Any Significant HX Other Medical History: Renal, Diabetes Type II, Other (hyponatremia) Anesthesia History: No Prior Anesthetic Complications, Past Anesthesia Alcohol Use: none Drug use: none Medications and Allergies Albuterol Sulfate [Ventolin Hfa] 2 puff IH Q4H PRN 04/06/18 [History] Budesonide/Formoterol 160/4.5 [Symbicort 160/4.5] 2 puff PO BID 04/06/18 [Hist ory] Esomeprazole Magnesium [Nexium] 40 mg PO DAILY 04/06/18 [History] Insulin ASPART [NovoLOG] 0 unit SQ AD 04/06/18 [History] Lisinopril/Hydrochlorothiazide [Zestoretic 20-25 mg Tablet] 1 tab PO DAILY 04/06/18 [History] Meloxicam 15 mg PO DAILY 04/06/18 [History] Methyl Salicylate/Menthol [Salonpas Patch] 1 patch TP DAILY PRN MDD N 04/06/18 [History] Montelukast [Singulair] 10 mg PO DAILY 04/06/18 [History] Multivitamin [One Daily Essential] 1 tab PO DAILY 04/06/18 [History] Tramadol HCl [Ultram] 50 mg PO DAILY 04/06/18 [History] predniSONE [PredniSONE] 60 mg PO DAILY 04/06/18 [History] Allergy/AdvReac Type Severity Reaction Status Date / Time No Known Allergies Allergy Verified 04/06/18 10:17 - Meds/Allergy Pre-op Review Medications Reviewed: Yes Allergies Reviewed: Yes Beta Blockers on Current Med List: No Anesthesia Results - Labs 04/10/18 15:12 04/10/18 09:39 - Imaging EKG: report reviewed (04/10/2018 ATRIAL FIBRILLATION WITH RAPID VENTRICULAR RESPONSE WITH ABERRANT CONDUCTION OR VENTRICULAR PREMATURE COMPLEXES ABNORMAL RHYTHM ECG) Anesthesia Exam Vital Signs/O2 Sat/Glucose, Most Recent Temp Pulse Resp BP Pulse Ox 98.2 F 105 19 95/45 100 04/10/18 18:59 04/10/18 22:31 04/10/18 20:19 04/10/18 22:31 04/10/18 20:19 Blood Glucose* 343 Height: 5'/1.52 m Weight: 147 lbs/66.7 kg Pain Scale Used: Unable to assess (complains of pain but cannot rate) - HEENT Mallampati: II Teeth: Edentulous Oral Opening: Greater than 3 - PR[employer] LOC: Confused - Cardiac Rhythm: Irregular Murmur: None - Pulmonary Breath Sounds: bilateral Clear (decreased BS) Respiratory Effort: Symmetrical Anesthesia Assess/Plan ASA Score: 3 (Patient is confused. Consent obtained from patient's son.) Anesthetic Plan: General Monitoring Plan: Standard Monitors Recovery Plan: PACU
[2018-04-10] MEDS: Amiodarone Premix 360 MG/200 ML BAG IVC SCH (19:29)
[2018-04-11 05:04] LABS: Acinetobacter baumannii by PCR Not Detected (Not Detect); Candida albicans by PCR Not Detected (Not Detect); Candida glabrata by PCR Not Detected (Not Detect); Candida krusei by PCR Not Detected (Not Detect); Candida parapsilosis by PCR Not Detected (Not Detect); Candida tropicalis by PCR Not Detected (Not Detect); Enterobacter cloacae Cmplx PCR Not Detected (Not Detect); Enterobacteriaceae by PCR Not Detected (Not Detect); Enterococcus by PCR Not Detected (Not Detect); Escherichia coli by PCR Not Detected (Not Detect); Klebsiella oxytoca by PCR Not Detected (Not Detect); Klebsiella pneumoniae by PCR Not Detected (Not Detect); Proteus by PCR Not Detected (Not Detect); Pseudomonas aeruginosa by PCR Not Detected (Not Detect); Serratia marcescens by PCR Not Detected (Not Detect); Staphylococcus aureus by PCR DETECTED (Not Detect); Staphylococcus by PCR DETECTED (Not Detect); Streptococcus agalactiae(B)PCR Not Detected (Not Detect); Streptococcus by PCR Not Detected (Not Detect); Streptococcus pneumoniae PCR Not Detected (Not Detect); Streptococcus pyogenes (A) PCR Not Detected (Not Detect); mecA Methicillin-Resist Gene DETECTED (Not Detect)
[2018-04-11] MEDS: *HR* OxyCODONE Immed Rel 5 MG TABLET PO PRN ×4 (05:41→20:22)
[2018-04-11] MEDS: Amiodarone Premix 360 MG/200 ML BAG IVC SCH ×2 (06:10→19:15)
[2018-04-11 06:13] LABS: BUN/Creatinine Ratio 56 (6-26); Blood Urea Nitrogen 57 mg/dL (8-23); Calcium 8.3 mg/dL (8.6-10.3); Carbon Dioxide 18 mEq/L (23-29); Chloride 96 mEq/L (98-107); Glucose 404 mg/dL (70-105); Osmolality,Calculated 301 (280-300); Potassium 3.5 mEq/L (3.5-5.1); Sodium 129 mEq/L (136-145); eGFR For Non-African Americans 53 (> 60)
[2018-04-11] MEDS: Budesonide/Formoterol 160/4.5 1 PUFF INH IH SCH ×2 (07:55→20:54)
--- NOTE | 2018-04-11 08:14 | Event Note ---
Date of Encounter: 04/11/18 Time of Encounter: 08:10 - Cardiology Event Note Reviewed note for planned surgery today, cardiology asked for risk stratification and recommendations for heparin drip. [id number] score 4 (age, gender, DM), currently on heparin drip. OK to stop heparin drip per surgeons recommendations. Would recommend resuming heparin drip when able per surgery team. Will determine intermediate anticoagulation pending TTE. Regarding cardiology risk stratification, current echocardiogram pending. Ideally, would give further recommendations pending TTE. However, if surgery is urgent/emergent, would recommend proceeding with surgery as planned. Patient is fairly active at home, still working at [employer]. Patient is able to achieve greater than 4 METs. Troponins negative x2. No high risk cardiology symptoms on presentation. Patient is currently SR, average HR 96. On amiodarone drip currently. Pending surgery, TTE, vital signs, will make medications adjustments as necessary.
[2018-04-11] MEDS: traMADol 50 MG TABLET PO SCH (08:46)
[2018-04-11] MEDS: Multivit/Ca/Min/Fe/FA 1 TAB TABLET PO SCH (08:46)
[2018-04-11] MEDS: Piperacillin/Tazobactam 3.375 GM in 0.9 % Sodium Chloride Mini Bag 100 ML IVPB SCH ×3 (08:55→23:16)
[2018-04-11] MEDS: Insulin LISPRO 300 UNITS/3 ML VIAL SQ SCH ×3 (09:00→20:27)
--- NOTE | 2018-04-11 09:28 | Infectious Disease Progress No ---
Date of Encounter: 04/11/18 Time of Encounter: 09:00 - Assessment and Plan (1) Sepsis Current Visit: Yes Status: Acute The patient had 2 sepsis criteria plus altered mental status. Likely secondary to bacteremia and right knee septic arthritis. CBC was not checked this morning some unsure for white blood cell count is turning up or down. She has been afebrile for 24 hours. She continues to have tachycardia. Blood cultures drawn 04/10/18 are +2 out of 2 sets for MRSA per PCR. Qualifiers: Sepsis type: sepsis due to unspecified organism Qualified Code(s): A41.9 - Sepsis, unspecified organism (2) Bacteremia Current Visit: Yes Status: Acute Causative organism: MRSA per PCR. Source: Right knee septic arthritis. Blood cultures drawn 04/10/18 are +2 out of 2 sets. Compensated due to the presence of septic arthritis of the right knee. The patient has no indwelling hardware or pacemaker. The patient has one major and one minor modified [place] criteria. She has not have any endocarditis stigmata noted on exam. Transthoracic echocardiogram has been completed and is pending. If negative, the patient will likely require a IDALIA prior to discharge. Repeat blood cultures 2 sets now. Check rheumatoid factor. Continue vancomycin IV. Pharmacy to dose. Goal trough proximally 15. Discontinue Zosyn. Duration of treatment depends on the clinical picture, but likely 4-6 weeks. Monitor renal function for drug toxicity and dose adjust antibiotics. Continue contact precautions per hospital policy. (3) Septic arthritis of knee, right Current Visit: Yes Status: Acute Location: Right knee. Causative organism: Likely MRSA given the blood culture results. MRI of the right knee showed a moderate joint effusion. The sterility of joint fluid was indeterminate on imaging and an infectious process could not be excluded. Rheumatology consult and following. Status post bedside arthrocentesis that revealed cloudy purulent fluid. Cell count with differential could not be performed due to the spasticity of the specimen. Gram stain is positive for gram-positive cocci. Orthopedics consult. Planning for arthroscopic washout later today. Continue antibiotics as stated above. Duration of treatment and clinical picture. Monitor renal function for drug toxicity and does just antibiotics. Qualifiers: Septic arthritis organism: staphylococcal Qualified Code(s): M00.061 - Staphylococcal arthritis, right knee (4) Altered mental status Current Visit: Yes Status: Acute Likely secondary to sepsis. At this point I do not think we need to be concerned about septic emboli to the brain, but the patient's altered mental status does not improve with the improvement if her bacteremia, we may need to consider MRI of the brain. Continue to monitor closely. Qualifiers: Altered mental status type: unspecified Qualified Code(s): R41.82 - Altered mental status, unspecified (5) Shoulder subluxation, left Current Visit: Yes Status: Acute Noted on imaging. Concern for seeding of the joint given new/worse shoulder pain and bacteremia. Get MRI of the left shoulder. Orthopedics consult. Qualifiers: Encounter type: initial encounter Qualified Code(s): S43.002A - Unspecified subluxation of left shoulder joint, initial encounter (6) Hyponatremia Current Visit: Yes Status: Acute (7) Calcium pyrophosphate arthropathy Current Visit: Yes Status: Acute Rheumatology consult and following. (8) Atrial fibrillation with RVR Current Visit: Yes Status: Acute Liquids secondary to sepsis. Cardiology consulted. - Subjective Interval history: Patient seen and examined. No acute events noted overnight. Patient states overall she does not feel very well today. She is somewhat confused and difficult to understand. She states that she generally feels unwell and hurts all over. She states she feels short of breath and nauseous. She denies a cough or congestion. She is unable to localize her pain. Infect Dis PN-Objective Data - Labs CBC & Chem 7: 04/11/18 09:21 04/11/18 05:33 Labs: Laboratory Results - last 24 hr 04/08/18 04/09/18 04/09/18 20:03 11:23 12:30 WBC RBC Hgb Hct MCV MCH MCHC RDW Plt Count MPV Seg Neutrophils % Band Neutrophils % Lymphocytes % Monocytes % Neutrophils # Lymphocytes # Monocytes # Platelet Estimate Immature Plt Fraction ESR PT INR D-Dimer Heparin Anti-Xa, Unfract Sodium Potassium Chloride Carbon Dioxide BUN Creatinine Est GFR ( Amer) Est GFR (Non-Af Amer) BUN/Creatinine Ratio Glucose POC Glucose 310 H 353 H Calculated Osmolality Lactic Acid Calcium Venous Ioniz Calcium Total Bilirubin AST ALT Alkaline Phosphatase Troponin I C-Reactive Protein Serum Total Protein Albumin Globulin Albumin/Globulin Ratio Urine Osmolality Urine Sodium Synovial RBC TNP Synovial Tot Nuc Cell TNP Synovial Band Neuts Test Not Performed Synovial Basophils Test Not Performed Synovial Eosinophils Test Not Performed Synovial Seg Neuts % 2.0 Synovial Lymphocytes % 84.0 Synovial Monocytes % 14.0 Synovial Other Cells % Test Not Performed A. baumannii (PCR) Kirti albicans (PCR) C. glabrata (PCR) C. krusei (PCR) C. parapsilosis (PCR) C. tropicalis (PCR) Enterobacteriac sp PCR E. cloacae complex PCR Enterococcus sp PCR E. coli (PCR) H. influenzae (PCR) Klebsiella oxytoca PCR Klebsiella pneumoniae List. monocytogenes PCR N. meningitidis (PCR) Proteus species (PCR) Serratia marcescens PCR Staphylococcus sp PCR Staph aureus (PCR) mecA-Methicil Res Gene Streptococcus sp PCR Group A Strep DNA Group B Strep (PCR) Strep pneumoniae (PCR) P. aeruginosa (PCR) Ivory/B-Vanco Res Genes KPC (blaKPC) Detect PCR 04/10/18 04/10/18 04/10/18 03:56 03:56 07:46 WBC 31.7 H* D RBC 3.42 L Hgb 10.0 L Hct 29.6 L MCV 86.5 MCH 29.2 MCHC 33.8 RDW 13.3 Plt Count 214 MPV 12.1 Seg Neutrophils % 91.0 Band Neutrophils % 3.0 Lymphocytes % 3.0 Monocytes % 3.0 Neutrophils # 29.8 H Lymphocytes # 1.0 Monocytes # 1.0 Platelet Estimate Normal Immature Plt Fraction 13.2 H ESR PT INR D-Dimer Heparin Anti-Xa, Unfract Sodium 127 L Potassium 3.7 Chloride 90 L Carbon Dioxide 24 BUN 42 H Creatinine 1.02 Est GFR ( Amer) > 60 Est GFR (Non-Af Amer) 53 L BUN/Creatinine Ratio 41 H Glucose 303 H POC Glucose 377 H Calculated Osmolality 286 Lactic Acid Calcium 9.0 Venous Ioniz Calcium Total Bilirubin AST ALT Alkaline Phosphatase Troponin I C-Reactive Protein Serum Total Protein Albumin Globulin Albumin/Globulin Ratio Urine Osmolality Urine Sodium Synovial RBC Synovial Tot Nuc Cell Synovial Band Neuts Synovial Basophils Synovial Eosinophils Synovial Seg Neuts % Synovial Lymphocytes % Synovial Monocytes % Synovial Other Cells % A. baumannii (PCR) Kirti albicans (PCR) C. glabrata (PCR) C. krusei (PCR) C. parapsilosis (PCR) C. tropicalis (PCR) Enterobacteriac sp PCR E. cloacae complex PCR Enterococcus sp PCR E. coli (PCR) H. influenzae (PCR) Klebsiella oxytoca PCR Klebsiella pneumoniae List. monocytogenes PCR N. meningitidis (PCR) Proteus species (PCR) Serratia marcescens PCR Staphylococcus sp PCR Staph aureus (PCR) mecA-Methicil Res Gene Streptococcus sp PCR Group A Strep DNA Group B Strep (PCR) Strep pneumoniae (PCR) P. aeruginosa (PCR) Ivory/B-Vanco Res Genes KPC (blaKPC) Detect PCR 04/10/18 04/10/18 04/10/18 09:39 11:00 11:10 WBC RBC Hgb Hct MCV MCH MCHC RDW Plt Count MPV Seg Neutrophils % Band Neutrophils % Lymphocytes % Monocytes % Neutrophils # Lymphocytes # Monocytes # Platelet Estimate Immature Plt Fraction ESR PT INR D-Dimer 5840 H Heparin Anti-Xa, Unfract Sodium 127 L Potassium 3.3 L Chloride 93 L Carbon Dioxide 18 L BUN 51 H Creatinine 1.47 H Est GFR ( Amer) 42 L Est GFR (Non-Af Amer) 35 L BUN/Creatinine Ratio 35 H Glucose 386 H POC Glucose Calculated Osmolality 294 Lactic Acid Calcium 8.7 Venous Ioniz Calcium Total Bilirubin 1.1 H AST 30 ALT 15 Alkaline Phosphatase 178 H Troponin I 0.03 C-Reactive Protein 257 H Serum Total Protein 5.6 L Albumin 2.2 L Globulin 3.4 Albumin/Globulin Ratio 0.6 L Urine Osmolality Urine Sodium Synovial RBC Synovial Tot Nuc Cell Synovial Band Neuts Synovial Basophils Synovial Eosinophils Synovial Seg Neuts % Synovial Lymphocytes % Synovial Monocytes % Synovial Other Cells % A. baumannii (PCR) Not Detected Kirti albicans (PCR) Not Detected C. glabrata (PCR) Not Detected C. krusei (PCR) Not Detected C. parapsilosis (PCR) Not Detected C. tropicalis (PCR) Not Detected Enterobacteriac sp PCR Not Detected E. cloacae complex PCR Not Detected Enterococcus sp PCR Not Detected E. coli (PCR) Not Detected H. influenzae (PCR) Not Detected Klebsiella oxytoca PCR Not Detected Klebsiella pneumoniae Not Detected List. monocytogenes PCR Not Detected N. meningitidis (PCR) Not Detected Proteus species (PCR) Not Detected Serratia marcescens PCR Not Detected Staphylococcus sp PCR DETECTED A Staph aureus (PCR) DETECTED A mecA-Methicil Res Gene DETECTED A Streptococcus sp PCR Not Detected Group A Strep DNA Not Detected Group B Strep (PCR) Not Detected Strep pneumoniae (PCR) Not Detected P. aeruginosa (PCR) Not Detected Ivory/B-Vanco Res Genes N/A KPC (blaKPC) Detect PCR N/A 04/10/18 04/10/18 04/10/18 12:12 13:32 15:12 WBC RBC Hgb Hct MCV MCH MCHC RDW Plt Count MPV Seg Neutrophils % Band Neutrophils % Lymphocytes % Monocytes % Neutrophils # Lymphocytes # Monocytes # Platelet Estimate Immature Plt Fraction ESR PT INR D-Dimer Heparin Anti-Xa, Unfract Sodium Potassium Chloride Carbon Dioxide BUN Creatinine Est GFR ( Amer) Est GFR (Non-Af Amer) BUN/Creatinine Ratio Glucose POC Glucose 242 H Calculated Osmolality Lactic Acid 1.6 Calcium Venous Ioniz Calcium 1.17 Total Bilirubin AST ALT Alkaline Phosphatase Troponin I C-Reactive Protein Serum Total Protein Albumin Globulin Albumin/Globulin Ratio Urine Osmolality Urine Sodium Synovial RBC Synovial Tot Nuc Cell Synovial Band Neuts Synovial Basophils Synovial Eosinophils Synovial Seg Neuts % Synovial Lymphocytes % Synovial Monocytes % Synovial Other Cells % A. baumannii (PCR) Kirti albicans (PCR) C. glabrata (PCR) C. krusei (PCR) C. parapsilosis (PCR) C. tropicalis (PCR) Enterobacteriac sp PCR E. cloacae complex PCR Enterococcus sp PCR E. coli (PCR) H. influenzae (PCR) Klebsiella oxytoca PCR Klebsiella pneumoniae List. monocytogenes PCR N. meningitidis (PCR) Proteus species (PCR) Serratia marcescens PCR Staphylococcus sp PCR Staph aureus (PCR) mecA-Methicil Res Gene Streptococcus sp PCR Group A Strep DNA Group B Strep (PCR) Strep pneumoniae (PCR) P. aeruginosa (PCR) Ivory/B-Vanco Res Genes KPC (blaKPC) Detect PCR 04/10/18 04/10/18 04/10/18 15:12 15:12 16:29 WBC 24.0 H RBC 3.30 L Hgb 9.6 L Hct 29.2 L MCV 88.5 MCH 29.1 MCHC 32.9 RDW 13.4 Plt Count 227 MPV 12.5 H Seg Neutrophils % Band Neutrophils % Lymphocytes % Monocytes % Neutrophils # Lymphocytes # Monocytes # Platelet Estimate Immature Plt Fraction ESR PT 11.7 INR 1.0 D-Dimer Heparin Anti-Xa, Unfract 0.09 L Sodium Potassium Chloride Carbon Dioxide BUN Creatinine Est GFR ( Amer) Est GFR (Non-Af Amer) BUN/Creatinine Ratio Glucose POC Glucose 332 H Calculated Osmolality Lactic Acid Calcium Venous Ioniz Calcium Total Bilirubin AST ALT Alkaline Phosphatase Troponin I C-Reactive Protein Serum Total Protein Albumin Globulin Albumin/Globulin Ratio Urine Osmolality Urine Sodium Synovial RBC Synovial Tot Nuc Cell Synovial Band Neuts Synovial Basophils Synovial Eosinophils Synovial Seg Neuts % Synovial Lymphocytes % Synovial Monocytes % Synovial Other Cells % A. baumannii (PCR) Kirti albicans (PCR) C. glabrata (PCR) C. krusei (PCR) C. parapsilosis (PCR) C. tropicalis (PCR) Enterobacteriac sp PCR E. cloacae complex PCR Enterococcus sp PCR E. coli (PCR) H. influenzae (PCR) Klebsiella oxytoca PCR Klebsiella pneumoniae List. monocytogenes PCR N. meningitidis (PCR) Proteus species (PCR) Serratia marcescens PCR Staphylococcus sp PCR Staph aureus (PCR) mecA-Methicil Res Gene Streptococcus sp PCR Group A Strep DNA Group B Strep (PCR) Strep pneumoniae (PCR) P. aeruginosa (PCR) Ivory/B-Vanco Res Genes KPC (blaKPC) Detect PCR 04/10/18 04/10/18 04/10/18 16:41 16:41 19:04 WBC RBC Hgb Hct MCV MCH MCHC RDW Plt Count MPV Seg Neutrophils % Band Neutrophils % Lymphocytes % Monocytes % Neutrophils # Lymphocytes # Monocytes # Platelet Estimate Immature Plt Fraction ESR PT INR D-Dimer Heparin Anti-Xa, Unfract Sodium Potassium Chloride Carbon Dioxide BUN Creatinine Est GFR ( Amer) Est GFR (Non-Af Amer) BUN/Creatinine Ratio Glucose POC Glucose 343 H Calculated Osmolality Lactic Acid Calcium Venous Ioniz Calcium Total Bilirubin AST ALT Alkaline Phosphatase Troponin I C-Reactive Protein Serum Total Protein Albumin Globulin Albumin/Globulin Ratio Urine Osmolality 407 Urine Sodium 21.3 Synovial RBC Synovial Tot Nuc Cell Synovial Band Neuts Synovial Basophils Synovial Eosinophils Synovial Seg Neuts % Synovial Lymphocytes % Synovial Monocytes % Synovial Other Cells % A. baumannii (PCR) Kirti albicans (PCR) C. glabrata (PCR) C. krusei (PCR) C. parapsilosis (PCR) C. tropicalis (PCR) Enterobacteriac sp PCR E. cloacae complex PCR Enterococcus sp PCR E. coli (PCR) H. influenzae (PCR) Klebsiella oxytoca PCR Klebsiella pneumoniae List. monocytogenes PCR N. meningitidis (PCR) Proteus species (PCR) Serratia marcescens PCR Staphylococcus sp PCR Staph aureus (PCR) mecA-Methicil Res Gene Streptococcus sp PCR Group A Strep DNA Group B Strep (PCR) Strep pneumoniae (PCR) P. aeruginosa (PCR) Ivory/B-Vanco Res Genes KPC (blaKPC) Detect PCR 04/10/18 04/10/18 04/10/18 21:56 21:56 21:56 WBC RBC Hgb Hct MCV MCH MCHC RDW Plt Count MPV Seg Neutrophils % Band Neutrophils % Lymphocytes % Monocytes % Neutrophils # Lymphocytes # Monocytes # Platelet Estimate Immature Plt Fraction ESR 82 H PT INR D-Dimer Heparin Anti-Xa, Unfract 0.81 H Sodium Potassium Chloride Carbon Dioxide BUN Creatinine Est GFR ( Amer) Est GFR (Non-Af Amer) BUN/Creatinine Ratio Glucose POC Glucose Calculated Osmolality Lactic Acid Calcium Venous Ioniz Calcium Total Bilirubin AST ALT Alkaline Phosphatase Troponin I C-Reactive Protein 237 H Serum Total Protein Albumin Globulin Albumin/Globulin Ratio Urine Osmolality Urine Sodium Synovial RBC Synovial Tot Nuc Cell Synovial Band Neuts Synovial Basophils Synovial Eosinophils Synovial Seg Neuts % Synovial Lymphocytes % Synovial Monocytes % Synovial Other Cells % A. baumannii (PCR) Kirti albicans (PCR) C. glabrata (PCR) C. krusei (PCR) C. parapsilosis (PCR) C. tropicalis (PCR) Enterobacteriac sp PCR E. cloacae complex PCR Enterococcus sp PCR E. coli (PCR) H. influenzae (PCR) Klebsiella oxytoca PCR Klebsiella pneumoniae List. monocytogenes PCR N. meningitidis (PCR) Proteus species (PCR) Serratia marcescens PCR Staphylococcus sp PCR Staph aureus (PCR) mecA-Methicil Res Gene Streptococcus sp PCR Group A Strep DNA Group B Strep (PCR) Strep pneumoniae (PCR) P. aeruginosa (PCR) Ivory/B-Vanco Res Genes KPC (blaKPC) Detect PCR 04/11/18 04/11/18 04/11/18 05:33 05:33 08:49 WBC RBC Hgb Hct MCV MCH MCHC RDW Plt Count MPV Seg Neutrophils % Band Neutrophils % Lymphocytes % Monocytes % Neutrophils # Lymphocytes # Monocytes # Platelet Estimate Immature Plt Fraction ESR PT INR D-Dimer Heparin Anti-Xa, Unfract 0.03 L Sodium 129 L Potassium 3.5 Chloride 96 L Carbon Dioxide 18 L BUN 57 H Creatinine 1.02 Est GFR ( Amer) > 60 Est GFR (Non-Af Amer) 53 L BUN/Creatinine Ratio 56 H Glucose 404 H POC Glucose 431 H* Calculated Osmolality 301 H Lactic Acid Calcium 8.3 L Venous Ioniz Calcium Total Bilirubin AST ALT Alkaline Phosphatase Troponin I C-Reactive Protein Serum Total Protein Albumin Globulin Albumin/Globulin Ratio Urine Osmolality Urine Sodium Synovial RBC Synovial Tot Nuc Cell Synovial Band Neuts Synovial Basophils Synovial Eosinophils Synovial Seg Neuts % Synovial Lymphocytes % Synovial Monocytes % Synovial Other Cells % A. baumannii (PCR) Kirti albicans (PCR) C. glabrata (PCR) C. krusei (PCR) C. parapsilosis (PCR) C. tropicalis (PCR) Enterobacteriac sp PCR E. cloacae complex PCR Enterococcus sp PCR E. coli (PCR) H. influenzae (PCR) Klebsiella oxytoca PCR Klebsiella pneumoniae List. monocytogenes PCR N. meningitidis (PCR) Proteus species (PCR) Serratia marcescens PCR Staphylococcus sp PCR Staph aureus (PCR) mecA-Methicil Res Gene Streptococcus sp PCR Group A Strep DNA Group B Strep (PCR) Strep pneumoniae (PCR) P. aeruginosa (PCR) Ivory/B-Vanco Res Genes KPC (blaKPC) Detect PCR Cultures: Cultures 04/10/18 11:00 Blood Culture - Preliminary Peripheral Venipuncture Gram Positive Cocci 04/10/18 11:10 Blood Culture - Preliminary Peripheral Venipuncture Gram Positive Cocci 04/09/18 12:30 Body Fluid Culture - Preliminary Synovial Fluid Gram Positive Cocci Serology 04/10/18 04/10/18 04/10/18 Range/Units 16:41 16:41 11:10 Ur Specimen Adequacy Urine Color (Yellow) Urine Clarity (Clear) Urine pH (5.0-8.0) pH Units Ur Specific [place] (1.010-1.025) Urine Protein (Neg-Trace) mg/dL Urine Glucose (UA) (Normal) mg/dL Urine Ketones (Negative) mg/dL Urine Blood (Negative) Urine Nitrite (Negative) Urine Bilirubin (Negative) Urine Urobilinogen (Normal) mg/dL Ur Leukocyte Esterase (Negative) Urine Microscopic RBC (0-3) per hpf Urine Microscopic WBC (0-3) per hpf Ur Squamous Epith Cells (None-Few) per lpf Urine Bacteria (None-Few) per hpf Hyaline Casts Ur Culture Indicated? (NO) Urine Osmolality 407 (300-1090) mOsm/kg Urine Sodium 21.3 mEq/L Fluid Crystals (None Seen) Synovial Source Synovial Color (Straw) Synovial Appearance (Clear-Hazy) Synovial Volume mL Synovial RBC Synovial Tot Nuc Cell Synovial Band Neuts Synovial Basophils Synovial Eosinophils Synovial Seg Neuts % % Synovial Lymphocytes % % Synovial Monocytes % % Synovial Other Cells % A. baumannii (PCR) Not Detected (Not Detect) Kirti albicans (PCR) Not Detected (Not Detect) C. glabrata (PCR) Not Detected (Not Detect) C. krusei (PCR) Not Detected (Not Detect) C. parapsilosis (PCR) Not Detected (Not Detect) C. tropicalis (PCR) Not Detected (Not Detect) Enterobacteriac sp PCR Not Detected (Not Detect) E. cloacae complex PCR Not Detected (Not Detect) Enterococcus sp PCR Not Detected (Not Detect) E. coli (PCR) Not Detected (Not Detect) H. influenzae (PCR) Not Detected (Not Detect) Klebsiella oxytoca PCR Not Detected (Not Detect) Klebsiella pneumoniae Not Detected (Not Detect) List. monocytogenes PCR Not Detected (Not Detect) N. meningitidis (PCR) Not Detected (Not Detect) Proteus species (PCR) Not Detected (Not Detect) Serratia marcescens PCR Not Detected (Not Detect) Staphylococcus sp PCR DETECTED A (Not Detect) Staph aureus (PCR) DETECTED A (Not Detect) mecA-Methicil Res Gene DETECTED A (Not Detect) Streptococcus sp PCR Not Detected (Not Detect) Group A Strep DNA Not Detected (Not Detect) Group B Strep (PCR) Not Detected (Not Detect) Strep pneumoniae (PCR) Not Detected (Not Detect) P. aeruginosa (PCR) Not Detected (Not Detect) Ivory/B-Vanco Res Genes N/A (Not Detect) KPC (blaKPC) Detect PCR N/A (Not Detect) 04/09/18 04/09/18 04/06/18 Range/Units 12:30 12:30 11:55 Ur Specimen Adequacy See below A Urine Color Yellow (Yellow) Urine Clarity Clear (Clear) Urine pH 5.5 (5.0-8.0) pH Units Ur Specific [place] 1.014 (1.010-1.025) Urine Protein 30 H (Neg-Trace) mg/dL Urine Glucose (UA) 250 H (Normal) mg/dL Urine Ketones Negative (Negative) mg/dL Urine Blood Small H (Negative) Urine Nitrite Negative (Negative) Urine Bilirubin Negative (Negative) Urine Urobilinogen Normal (Normal) mg/dL Ur Leukocyte Esterase Negative (Negative) Urine Microscopic RBC 5-15 H (0-3) per hpf Urine Microscopic WBC 0-3 (0-3) per hpf Ur Squamous Epith Cells Many H (None-Few) per lpf Urine Bacteria None Seen (None-Few) per hpf Hyaline Casts Test Not Performed Ur Culture Indicated? NO (NO) Urine Osmolality (300-1090) mOsm/kg Urine Sodium mEq/L Fluid Crystals CPPD Crystals Seen A (None Seen) Synovial Source RIGHT KNEE Synovial Color Straw (Straw) Synovial Appearance Cloudy A (Clear-Hazy) Synovial Volume 8.0 mL Synovial RBC TNP Synovial Tot Nuc Cell TNP Synovial Band Neuts Test Not Performed Synovial Basophils Test Not Performed Synovial Eosinophils Test Not Performed Synovial Seg Neuts % 2.0 % Synovial Lymphocytes % 84.0 % Synovial Monocytes % 14.0 % Synovial Other Cells % Test Not Performed A. baumannii (PCR) (Not Detect) Kirti albicans (PCR) (Not Detect) C. glabrata (PCR) (Not Detect) C. krusei (PCR) (Not Detect) C. parapsilosis (PCR) (Not Detect) C. tropicalis (PCR) (Not Detect) Enterobacteriac sp PCR (Not Detect) E. cloacae complex PCR (Not Detect) Enterococcus sp PCR (Not Detect) E. coli (PCR) (Not Detect) H. influenzae (PCR) (Not Detect) Klebsiella oxytoca PCR (Not Detect) Klebsiella pneumoniae (Not Detect) List. monocytogenes PCR (Not Detect) N. meningitidis (PCR) (Not Detect) Proteus species (PCR) (Not Detect) Serratia marcescens PCR (Not Detect) Staphylococcus sp PCR (Not Detect) Staph aureus (PCR) (Not Detect) mecA-Methicil Res Gene (Not Detect) Streptococcus sp PCR (Not Detect) Group A Strep DNA (Not Detect) Group B Strep (PCR) (Not Detect) Strep pneumoniae (PCR) (Not Detect) P. aeruginosa (PCR) (Not Detect) Ivory/B-Vanco Res Genes (Not Detect) KPC (blaKPC) Detect PCR (Not Detect) - Impressions Impressions Echocardiogram 04/10/18 13:27 Impressions: LVEF 65-70%. Normal LV systolic and diastolic function. Grossly normal LV chamber size and wall thickness. Normal right ventricular structure and function. No significant valvular dysfunction. No pulmonary hypertension. Exam - Constitutional Vitals: Temp Pulse Resp BP Pulse Ox 98.2 F 93 18 102/47 100 04/11/18 07:00 04/11/18 07:00 04/11/18 07:56 04/11/18 07:00 04/11/18 07:56 General appearance: average body habitus, cooperative, no acute distress - Head Head exam: Present: atraumatic, normal inspection, normocephalic - Eye Eye exam: Present: EOMI, normal appearance, PERRL Pupils: Present: normal accommodation Additional comments: No subconjunctival hemorrhage noted. - ENT ENT exam: Present: mucous membranes moist - Neck Neck exam: Present: normal inspection - Respiratory Respiratory exam: Present: CTAB. Absent: rales, respiratory distress, rhonchi, wheezes - Cardiovascular Cardiovascular exam: Present: irregular rhythm, tachycardia - GI/Abdominal GI/Abdominal exam: Present: normal bowel sounds, soft, tenderness (Generalized). Absent: distended - Extremities Exam Extremities exam: Present: tenderness (Right knee). Absent: joint swelling, pedal edema - Back Exam Additional comments: Deferred due to patient pain with movement. - Neurological Exam Neurological exam: Present: alert, oriented X3, no focal deficits - Psychiatric Psychiatric exam: Present: normal affect, normal mood - Skin Skin exam: Present: dry, intact, normal color, warm Additional comments: No endocarditis stigmata noted. Consult Discharge Plan - Plan Referrals: Anish Live, [Partnered Physician] -
--- NOTE | 2018-04-11 09:42 | Event Note ---
Date of Encounter: 04/11/18 Time of Encounter: 07:45 Orthopedic plan: Called Cardio team to discuss risk stratification: intermediate to high risk. They will further discuss with family during rounds. Plan for NPO. saw patient this AM and spoke with family, concerns with surgery and risks involved. Plan for surgery today, LEFT knee Arthroscopy Irrigation and debridment today with OK to hold Heparin Drip, with plan to resume after surgery. Discussed the need for shoulder aspiration with as well.
[2018-04-11 10:00] LABS: Hemoglobin 9.3 g/dL (11.5-15.4); Mean Platelet Volume 11.6 fL (9.4-12.4)
[2018-04-11 10:01] LABS: Hematocrit 28.8 % (35.3-44.9); Lymphocytes # 1.1 K/mcL (0.6-4.6); Mean Corpuscular HGB Conc 32.3 g/dL (31.6-35.5); Mean Corpuscular Hemoglobin 28.9 pg (28.0-33.3); Mean Corpuscular Volume 89.4 fL (83.0-100.0); Platelet Count 254 K/mcL (140-400); Red Blood Count 3.22 M/mcL (3.82-4.97)
--- NOTE | 2018-04-11 10:01 | Internal Med Progress Note ---
<Rao Camacho A - Last Filed: 04/11/18 13:07> Hospitalist Progress Note - Encounter Date of Encounter: 04/11/18 Time of Encounter: 13:08 - Subjective Interval History: Pt seen and examined at bedside. Pt in obvious distress, complaining of pain. Mumbling words. Making comments that she "wants to go home to [place]." Son at bed side. States that she is very active and competent at baseline. - Exam Vitals: Temp Pulse Resp BP Pulse Ox 97.5 F L 96 19 107/50 100 04/11/18 09:34 04/11/18 09:34 04/11/18 09:34 04/11/18 09:34 04/11/18 09:34 Exam: General: moderate distress Head: atraumatic, normocephalic HEENT: conjuntiva pink, sclera icterus Lungs: CTA b/l no rales, rhonchi, wheezes CV:+S1, +S2; no murmur, gallop, rubs Abdominal: normal bowel sounds, soft, NT/ND Extremities: shoulder and knee pain b/l to palpation; no warmth or edema Skin: dry, intact - Assessment and Plan (1) Sepsis Current Visit: Yes Status: Acute Assessment and Plan: likely secondary to septic joint Peripheral cx positive for MRSA Treating with vanc; d/c zosyn as per ID recs will need likely need 6 wks vanc wbc 27 today, uptrending wbc on admission 10 (04/06/18), leukocytosis noted on 04/10/18 abx started and cultures drawn at that time blood cx obtained when she met sepsis criteria. Joint cx drawn 04/09/18 and peripheral cx drawn 04/10/18... both grew MRSA schedule for joint washout with orthro today (2) Bacteremia Current Visit: Yes Status: Acute Assessment and Plan: peripheral cx positive see above (3) Shoulder subluxation, left Current Visit: Yes Status: Acute Assessment and Plan: XR: Severe left glenohumeral joint osteoarthritic degenerative changes with large marginal osteophytes, subchondral changes and bony remottling. Calcification suggesting calcific tendinosis of the rotator cuff. No acute fracture or dislocation No erythema, swelling or warmth to suggest septic joint. Work on motion as tolerated. PT/OT eval for motion. Pain control oxy 10s Ice as needed. (4) Arthritis of right knee Current Visit: Yes Status: Acute Assessment and Plan: Knee aspiration showed G+ cocci with many WBC and many epithelial cells; fluid also showed positive for CPPD crystals Vanc (day 2) Blood cx negative preliminary. Knee washout scheduled for today for possible septic joint NPO (5) Atrial fibrillation with RVR Current Visit: Yes Status: Acute Assessment and Plan: As per cardio: Suspect in response to sepsis; Troponin negative 2. Monitor telemetry with amiodarone. Repeat echo: Grossly normal LV chamber size and wall thickness, normal RV structure/fcn, no valvular dysf, no pulm htn CHADs VASC=5 on heparin currently in sinus rhythm (6) Calcium pyrophosphate arthropathy Current Visit: Yes Status: Acute Assessment and Plan: followed by kimmy, suspecting that etiology of her arthralgias are multifactorial in setting of CPPD arthopathy and possible septic joint. hold off on steroid injections in setting of sepsis. CCP Pending. (7) Type 1 diabetes Current Visit: Yes Status: Acute Assessment and Plan: BG 400+ this morning,; elevation likely result of sepsis 10u basal insulin high dose SSI will continue to monitor DVT Prophylaxis: Heparin - Time Spent with Patient Total time spent is greater than 50% in coordination of care (as documented) at patient's floor/unit and/or counseling patient: Internal Medicine: Result - Labs CBC & Chem 7: 04/11/18 09:21 04/11/18 05:33 Labs: Short CBC 04/10/18 04/10/18 Range/Units 03:56 15:12 WBC 31.7 H* D 24.0 H (4.3-11.1) K/mcL Hgb 10.0 L 9.6 L (11.5-15.4) g/dL Hct 29.6 L 29.2 L (35.3-44.9) % Plt Count 214 227 (140-400) K/mcL Neutrophils # 29.8 H (1.6-8.9) K/mcL BMP 04/10/18 04/10/18 04/11/18 03:56 09:39 05:33 Sodium 127 L 127 L 129 L Potassium 3.7 3.3 L 3.5 Chloride 90 L 93 L 96 L Carbon Dioxide 24 18 L 18 L BUN 42 H 51 H 57 H Creatinine 1.02 1.47 H 1.02 Glucose 303 H 386 H 404 H Calcium 9.0 8.7 8.3 L Cardiac Enzymes 04/10/18 Range/Units 09:39 Troponin I 0.03 (< 0.04) ng/mL Liver Function 04/10/18 Range/Units 09:39 Total Bilirubin 1.1 H (0.3-1.0) mg/dL AST 30 (13-39) Units/L ALT 15 (7-52) Units/L Alkaline Phosphatase 178 H (34-104) Units/L Albumin 2.2 L (3.5-5.7) g/dL - ABG Interpretation ABG results: PT/INR, D-dimer PT 11.7 Seconds (9.4-12.1) 04/10/18 15:12 D-Dimer 5840 ng/mLFEU (0-500) H 04/10/18 11:00 - Impressions Impressions Echocardiogram 04/10/18 13:27 Impressions: LVEF 65-70%. Normal LV systolic and diastolic function. Grossly normal LV chamber size and wall thickness. Normal right ventricular structure and function. No significant valvular dysfunction. No pulmonary hypertension. Consult Discharge Plan - Plan Referrals: Anish Live DO [Partnered Physician] - <Arnaud Enriquez - Last Filed: 04/11/18 18:38> Hospitalist Progress Note - Exam Vitals: Temp Pulse Resp BP Pulse Ox 99.2 F 89 21 110/56 100 04/11/18 16:41 04/11/18 16:41 04/11/18 16:41 04/11/18 16:41 04/11/18 16:41 - Assessment and Plan (1) Altered mental status Current Visit: Yes Status: Acute (2) Shoulder subluxation, left Current Visit: Yes Status: Acute (3) Arthritis of right knee Current Visit: Yes Status: Acute (4) Type 1 diabetes Current Visit: Yes Status: Acute (5) Hyponatremia Current Visit: Yes Status: Acute (6) Abnormal TSH Current Visit: Yes Status: Acute - Time Spent with Patient Total time spent is greater than 50% in coordination of care (as documented) at patient's floor/unit and/or counseling patient: Internal Medicine: Result - Labs CBC & Chem 7: 04/11/18 09:21 04/11/18 05:33 Labs: Short CBC 04/11/18 Range/Units 09:21 WBC 27.3 H (4.3-11.1) K/mcL Hgb 9.3 L (11.5-15.4) g/dL Hct 28.8 L (35.3-44.9) % Plt Count 254 (140-400) K/mcL Neutrophils # 24.6 H (1.6-8.9) K/mcL BMP 04/11/18 05:33 Sodium 129 L Potassium 3.5 Chloride 96 L Carbon Dioxide 18 L BUN 57 H Creatinine 1.02 Glucose 404 H Calcium 8.3 L - ABG Interpretation ABG results: PT/INR, D-dimer PT 12.1 Seconds (9.4-12.1) 04/11/18 11:35 D-Dimer 5840 ng/mLFEU (0-500) H 04/10/18 11:00 - Impressions Impressions Echocardiogram 04/10/18 13:27 Impressions: LVEF 65-70%. Normal LV systolic and diastolic function. Grossly normal LV chamber size and wall thickness. Normal right ventricular structure and function. No significant valvular dysfunction. No pulmonary hypertension. Joint Aspiration/Injection 04/11/18 13:09 IMPRESSION: Fluoroscopic guided left glenohumeral joint aspiration. No joint fluid could be aspirated despite repositioning the needle throughout the joint. D/ / 04/11/2018 13:54:57 Gilbert Henderson MD / osiel Interpreting Provider: Gilbert Henderson MD - Attending Attestation The history, physical exam, and medical decision making was performed by the medical student Dr. Camacho either while I was physically present and actively involved or I personally re-performed the exam and medical decision making. I have verified the accuracy of the medical student's documentation with regards to the history, physical exam findings, and medical decision making. Ms. Mckeon is a 77 year old female with pmh of arthritis, hypertension, type 1 diabetes presented to ER on 04/06/18 with complaints of severe left shoulder and right knee pain. In the ER chest xray showed left shoulder joint subluxation and severe right knee arthritis. Pt was admitted in the hospital and evaluated by Ortho / Rheumatology. Ortho recommended concervative management and PT / OT regarding Left shoulder pain.Pt had Rt knee aspiration done by rheumatology fluid analysis showed CCPD crystal and many gram positive cocci. She was started on Vancomycin. Later she developed to new onset Afib with RVR so she was started on Amiodarone gtt and transferred to Step down unit for further care. I did see pt today first time and talked to the pt's family at bed side. She had Left shoulder aspiration today, did not get much fluid out. She does have Left knee septic arthritis, so pt scheduled for Left knee wash out today. She is alert, awake and O x 3. Looks weak and lethargic. As per family she looks little better this evening. Gen: A, A< O x 3 Chest: Diminished BS b/l, no wheezing no crackles Heart: S1S2 + Afib a/p 1. Septic arthritis with MRSA 2. Sepsis / Bacteremia with MRSA ( possibly ) Scheduled for Left knee Wash out today cont Vancomycin Appreciate ID / Ortho recommendations 3. Acute delirium / acute toxic encephaloapthy improving 4. Acute Afib with RVR improving cont Amidoarone CHADVASC score 4.. need anti coag will talk to Ortho about it Card is on board <Rao Camacho - Last Filed: 04/11/18 13:07> (1) Sepsis Qualifiers: Sepsis type: sepsis due to unspecified organism Qualified Code(s): A41.9 - Sepsis, unspecified organism (3) Shoulder subluxation, left Qualifiers: Encounter type: initial encounter Qualified Code(s): S43.002A - Unspecified subluxation of left shoulder joint, initial encounter (7) Type 1 diabetes Qualifiers: Qualified Code(s): E10.9 - Type 1 diabetes mellitus without complications <Arnaud Enriquez - Last Filed: 04/11/18 18:38> (1) Altered mental status Qualifiers: Altered mental status type: unspecified Qualified Code(s): R41.82 - Altered mental status, unspecified (2) Shoulder subluxation, left Qualifiers: Encounter type: initial encounter Qualified Code(s): S43.002A - Unspecified subluxation of left shoulder joint, initial encounter (4) Type 1 diabetes Qualifiers: Qualified Code(s): E10.9 - Type 1 diabetes mellitus without complications
[2018-04-11] MEDS: Acetaminophen 325 MG TABLET PO PRN (10:28)
[2018-04-11 10:38] LABS: Monocytes # 1.6 K/mcL (0.0-1.3); Neutrophils # 24.6 K/mcL (1.6-8.9); Platelet Estimate Normal (Normal)
[2018-04-11] MEDS ORDERED: Gadolinium Contrast Agent (WT Based) IV PRN ×2 (11:31→19:41)
[2018-04-11] MEDS ORDERED: *HR* OxyCODONE Immed Rel 5 MG TABLET PO PRN (11:43)
[2018-04-11] MEDS ORDERED: D5% in Water 1,000 ML IVC PRN ×2 (11:55→19:41)
[2018-04-11] MEDS ORDERED: Dextrose Gel 15 GM/37.5 ML TUBE PO PRN ×4 (11:55→19:41)
[2018-04-11] MEDS ORDERED: *HR* Dextrose 50 % in Water (Syg) 50 ML SYRINGE IVP PRN ×2 (11:55→19:41)
[2018-04-11 12:07] LABS: INR 1.1; Prothrombin Time 12.1 Seconds (9.4-12.1)
--- NOTE | 2018-04-11 13:44 | Event Note ---
Date of Encounter: 04/11/18 Time of Encounter: 12:30 Discussed with patient and family again that Dr. Fournier recommends right knee arthroscopy I&D today. I reviewed the procedure as well as r/b/a with patient and family. They expressed understanding and patient agreeable to surgery but she was having difficulty seeing the paper so she gave permission for son to sign consent. she is being taken to IR now for left shoulder to see if any fluid can be aspirated and if there is any bacterial growth. If so then will also do a left shoulder arthroscopy I&D also.
[2018-04-11] MEDS ORDERED: Ondansetron 4 MG/2 ML VIAL ONE ×2 (14:20→18:30)
[2018-04-11] MEDS ORDERED: Dexamethasone 4 MG/ML VIAL ONE (14:20)
[2018-04-11] MEDS ORDERED: *HR* Midazolam HCl 2 MG/2 ML VIAL ONE (14:20)
[2018-04-11] MEDS ORDERED: Lidocaine -MPF 2% 2 ML VIAL ONE ×2 (14:20→17:02)
[2018-04-11] MEDS ORDERED: *HR* FentaNYL (PF) 100 MCG/2 ML VIAL ONE ×2 (14:30→17:01)
[2018-04-11] MEDS ORDERED: *HR* Propofol 200 MG/20 ML VIAL IVP ONE ×2 (14:30→17:02)
--- NOTE | 2018-04-11 15:49 | Cardiology Progress Note ---
Date of Encounter: 04/11/18 Time of Encounter: 11:30 Assessment and Plan (1) Sepsis Current Visit: Yes Status: Acute Per cardiology: -Admitted with sepsis. -Management per primary service. Qualifiers: Sepsis type: sepsis due to unspecified organism Qualified Code(s): A41.9 - Sepsis, unspecified organism (2) Atrial fibrillation with RVR Current Visit: Yes Status: Acute Per Cardiology: -Suspect in response to leukocytosis and concerns of septic knee. -Troponin negative 2. -TSH management per primary service. -ON amiodarone, now SR. HR controlled. -TTE with LVEF preserved, no segmental wall motion abnormalities, no significant valvular dysfunction. -[id number] score 4 (age, gender, DM). Currently on heparin drip, ok to hold per orthopedic surgery services. Ideally would continue lacquer polisher anticoagulation, however Hemgolobin 11.3 admission, now 9.3. Consider further work up for anemia. -Discussed and reviewed with Dr.John Meza, Once able to take oral medications, will add BB and will discontinue amio drip. -Will determine lacquer polisher anticoagulation pending clinical course. Consider further anemia work up. Discussed with patient and family at bedside regarding increased risk of CVA/embolic event with atrial fibrillation. (3) Anemia Current Visit: Yes Status: Acute Per cardiology: -Hemoglobin admission 11.3, now 9.3. -Consider further anemia work up. Qualifiers: Anemia type: unspecified type Qualified Code(s): D64.9 - Anemia, unspecified (4) Preop cardiovascular exam Current Visit: Yes Status: Acute Per cardiology: -Cardiology risk stratification. -ECG with no acute ischemic ECG findings. -TTE with LVEF preserved, no segmental wall motion abnormalities. -Troponin negative x2. -Denies cardiac complaints. -Newly diagnosed a.fib, now in SR. ON heparin drip. -No recent ischemic evaluation. -ABle to achieve greater than 4 mets without symptoms. Very active at home. -Patient would be at intermediate risk for cardiovascular complications in the darshan-operative time frame. -OK to stop heparin per orthopedic surgerys recommendations. Would recommend resuming when ok with surgery team. Discussion w patient/family: The assessment and plan as outlined above was discussed with the patient and/or family members who expressed understanding and agreement. All questions were answered. Thank you for involving us in the care of your patient. Please call wi th any questions. Discussed and reviewed with Dr.John Meza. Subjective Principal diagnosis: left shoulder pain, right knee pain, sepsis Interval history: Patient confused, laying in bed. Deneis chest pain or shortness of breath. Complains of joint pain Objective Vital Signs Temperature 99.4 F 04/06/18 10:11 Pulse Rate 115 04/06/18 10:11 Respiratory Rate 18 04/06/18 10:11 Blood Pressure 124/79 04/06/18 10:11 O2 Sat by Pulse Oximetry 97 04/06/18 10:11 Temperature 98.1 F 04/11/18 11:33 Pulse Rate 88 04/11/18 11:33 Respiratory Rate 20 04/11/18 11:33 Blood Pressure 101/51 04/11/18 11:33 O2 Sat by Pulse Oximetry 100 04/11/18 11:33 Oxygen Delivery Oxygen Delivery Room Air General: Conversant, No Apparent Distress HEENT: Atraumatic, Normocephaly, Mucus Membranes Moist Neck: No JVD, Normal carotid pulses Cardiac: Reg Rate and Rhythm, Normal S1 and S2, No Murmur Lungs: Normal Breath Sounds, No Wheeze, Rales, Rhonchi Neuro: Alert and responsive, Other (Oriented to person. ) Abdomen: Soft, Non-Tender Skin: No rashes noted on visualized skin Musculoskeletal: No Chest Wall Tenderness Extremities: No Clubbing, No Cyanosis, No Edema, Normal Pulses Results 04/11/18 09:21 04/11/18 05:33 Lab Results Impressions Echocardiogram 04/10/18 13:27 Impressions: LVEF 65-70%. Normal LV systolic and diastolic function. Grossly normal LV chamber size and wall thickness. Normal right ventricular structure and function. No significant valvular dysfunction. No pulmonary hypertension. Joint Aspiration/Injection 04/11/18 13:09 IMPRESSION: Fluoroscopic guided left glenohumeral joint aspiration. No joint fluid could be aspirated despite repositioning the needle throughout the joint. D/ / 04/11/2018 13:54:57 Gilbert Henderson MD / osiel Interpreting Provider: Gilbert Henderson MD Active Medications Acetaminophen (Tylenol) 650 mg PO Q6HR PRN PRN Reason: Fever Stop: 10/06/18 21:03 Last Admin: 04/11/18 10:28 Dose: 650 mg Albuterol Sulfate (Albuterol Inhaler) 2 puff IH Q4H PRN PRN Reason: Shortness Of Breath Stop: 10/06/18 14:37 Budesonide/Formoterol Fumarate (Symbicort) 2 puff IH BID RIANNA; Protocol Stop: 10/06/18 21:01 Last Admin: 04/11/18 07:55 Dose: 2 puff Cyclobenzaprine HCl (Flexeril) 5 mg PO BID PRN PRN Reason: Muscle Spasm Stop: 10/08/18 10:42 Last Admin: 04/10/18 23:19 Dose: 5 mg Dextrose/Water (Dextrose 50% (Syg)) 25 ml IVP AD PRN PRN Reason: Hypoglycemia Stop: 10/11/18 11:56 Gadobutrol (Gadolinium Contrast Agent (Wt Based)) 1 each IV ONCE PRN; Protocol PRN Reason: SEE COMMENTS Stop: 04/13/18 11:32 Glucagon (Glucagen) 1 mg IM ONCE PRN PRN Reason: Hypoglycemia Stop: 10/11/18 11:56 Glucose (Gluctose) 15 gm PO ONCE PRN PRN Reason: Hypoglycemia Stop: 10/11/18 11:56 Glucose (Gluctose) 30 gm PO ONCE PRN PRN Reason: Hypoglycemia Stop: 10/11/18 11:56 Heparin Sodium (Porcine) (Heparin) 4,700 unit 70 unit/kg (4700 unit) IVP Q6HR PRN PRN Reason: SEE COMMENTS Stop: 10/10/18 13:28 Last Admin: 04/11/18 06:31 Dose: 4,700 unit Heparin Sodium (Porcine) (Heparin) 2,300 unit 35 unit/kg (2300 unit) IVP Q6H PRN PRN Reason: SEE COMMENTS Stop: 10/10/18 13:28 Piperacillin Sod/Tazobactam (Sod 3.375 gm/ Sodium Chloride) 100 mls @ 25 mls/hr IVPB Q8HR RIANNA Stop: 10/10/18 10:31 Last Infusion: 04/11/18 14:40 Dose: Infused Amiodarone HCl/Dextrose (Amiodarone Drip Premix 360mg/200ml) 360 mg in 200 mls @ 16.667 mls/hr IVC CONT RIANNA Stop: 10/10/18 12:01 Last Admin: 04/11/18 06:10 Dose: 0.5 mg/min, 16.667 mls/hr Vancomycin HCl 1,000 mg/ (Sodium Chloride) 250 mls @ 167 mls/hr IVPB Q24H RIANNA; Protocol Stop: 10/11/18 09:01 Last Admin: 04/11/18 08:52 Dose: 167 mls/hr Heparin Sodium/Dextrose (Heparin 25,000 Unit/500 Ml D5w) 25,000 unit in 500 mls @ 18.676 mls/hr IVC .Q24H RIANNA; Protocol Stop: 10/10/18 13:31 Last Titration: 04/11/18 09:00 Dose: 0 unit/kg/hr, 0 mls/hr Dextrose (Dextrose 5%) 1,000 mls @ 100 mls/hr IVC .Q10H PRN PRN Reason: HYPOGLYCEMIA Stop: 10/11/18 11:56 Ibuprofen (Motrin) 400 mg PO Q6HR PRN PRN Reason: FEVER/PAIN Stop: 10/08/18 10:43 Last Admin: 04/09/18 22:29 Dose: 400 mg Insulin Detemir (Levemir) 10 unit SQ HS RIANNA Stop: 10/11/18 21:01 Insulin Human Lispro (Humalog) 0 units SQ HS RIANNA; Protocol Stop: 10/11/18 21:01 Insulin Human Lispro (Humalog) 0 units SQ TIDAC RIANNA; Protocol Stop: 10/11/18 16:31 Lidocaine HCl (Lidoderm 5% Patch) 1 each TP DAILY RIANNA Stop: 10/10/18 09:01 Last Admin: 04/11/18 08:46 Dose: 1 each Montelukast Sodium (Singulair) 10 mg PO DAILY RIANNA Stop: 10/07/18 09:01 Last Admin: 04/11/18 08:46 Dose: 10 mg Multivitamins/Calcium (Thera M Plus) 1 tab PO DAILY RIANNA Stop: 10/07/18 09:01 Last Admin: 04/11/18 08:46 Dose: 1 tab Naloxone HCl (Narcan) 0.4 mg IVP Q2MIN PRN PRN Reason: SEE COMMENTS Stop: 10/06/18 14:35 Omeprazole (Prilosec) 40 mg PO DAILY RIANNA; Protocol Stop: 10/07/18 09:01 Last Admin: 04/11/18 08:46 Dose: 40 mg Ondansetron HCl (Zofran) 4 mg IVP Q6HR PRN; Protocol PRN Reason: Nausea And Vomiting Stop: 10/06/18 16:53 Oxycodone HCl (Roxicodone) 5 mg PO Q4HR PRN; Protocol PRN Reason: Pain Stop: 10/06/18 15:45 Last Admin: 04/11/18 10:20 Dose: 5 mg Oxycodone HCl (Roxicodone) 10 mg PO Q4HR PRN; Protocol PRN Reason: Severe Pain Stop: 10/11/18 11:44 Last Admin: 04/11/18 14:40 Dose: 10 mg Pharmacy Profile Note (Patient Taking Own Medication) 10 each SQ AD RIANNA Stop: 10/06/18 14:46 Last Admin: 04/10/18 11:51 Dose: Not Given Tramadol HCl (Ultram) 50 mg PO DAILY RIANNA Stop: 10/07/18 09:01 Last Admin: 04/11/18 08:46 Dose: 50 mg Laboratory Tests 04/06/18 04/07/18 04/10/18 10:31 03:31 03:56 WBC Hgb 11.3 L 10.9 L Creatinine 1.02 04/10/18 04/11/18 04/11/18 03:56 05:33 09:21 WBC 31.7 H* D 27.3 H Hgb 9.3 L Creatinine 1.02 - Imaging and Cardiology Chest Xray: report reviewed Echo: report reviewed - EKG Interpretation EKG results cardiology: other (Telemetry reviewed with average HR previous 12 hours noted to be 96, SR. PACS noted.) Consult Discharge Plan - Plan Referrals: Anish Live DO [Partnered Physician] -
[2018-04-11] MEDS ORDERED: Insulin LISPRO 300 UNITS/3 ML VIAL SQ SCH ×2 (16:30→21:00)
[2018-04-11] MEDS ORDERED: Bupivacaine/EPI 1:200k 0.25%PF 30 ML VIAL ONE (17:04)
[2018-04-11] MEDS ORDERED: Acetaminophen IV 1,000 MG/100 ML INFUS..BTL ONE (17:23)
[2018-04-11] MEDS ORDERED: *HR* Succinylcholine 200 MG/10 ML VIAL IVP ONE (17:25)
[2018-04-11] MEDS ORDERED: Hydrocortisone Sodium Succ 100 MG/2 ML VIAL ONE (17:27)
[2018-04-11] MEDS: Patient Taking Own Medication 1 EACH SQ SCH (17:32)
[2018-04-11] MEDS ORDERED: Water for inj. (sterile) 10 ML IV ONE (18:07)
--- NOTE | 2018-04-11 18:43 | Orthopedic Operative Note ---
Date of procedure: 04/11/18 Pre-op diagnosis: infected right knee/OA Post-op diagnosis: same Procedure: Procedure: Right knee arthroscopy irrigation debridement Estimated blood loss: 5cc Cartilage surfaces: Patella:4 Trochlear groove:4 Medial compartment:4 Lateral compartment:4 Exam Under anesthesia: limited flexion and extension Patient was brought to the operating room and placed on the operating room table. After general anesthesia was administered. The operative leg was examined and noted. The operative leg was prepped and draped in the sterile surgical fashion. The patient received IV antibiotics prior to skin incision. A superior medial outflow portal was established purulent material was encountered and cultured. The arthroscope was introduced through an anterolateral portal. Diagnostic evaluation of the patella trochlear groove medial and lateral compartments were performed. Patient noted to have grade 4 arthritic changes all 3 compartments. The medial and lateral menisci were evaluated. No tear of the medial or lateral meniscus was identified. ACL and PCL were without pathology. The arthroscope was removed from the knee. Portals were closed with interrupted 2-0 nylon suture. The knee was infiltrated with half percent Marcaine with epi nephrine. The patient was placed in a sterile dressing. The patient was extubated and tolerated the procedure well and transferred to the recovery room in stable condition. Anesthesia: GETA Surgeon: Braxton Fournier Was there an educational/development assistant present: No Estimated blood loss (cc): 5 Condition: stable Disposition: PACU
[2018-04-11] MEDS ORDERED: Amiodarone Premix 360 MG/200 ML BAG IVC SCH (19:41)
[2018-04-11] MEDS ORDERED: Ondansetron 4 MG/2 ML VIAL IVP PRN ×2 (19:41)
[2018-04-11] MEDS ORDERED: MOM Conc 10 ML UD.LIQ PO PRN (19:41)
[2018-04-11] MEDS ORDERED: Temazepam 15 MG CAPSULE PO PRN (19:41)
[2018-04-11] MEDS ORDERED: Sennosides 8.6 MG TABLET PO PRN (19:41)
[2018-04-11] MEDS ORDERED: Naloxone 0.4 MG/ML INJ IVP PRN ×2 (19:41)
[2018-04-11] MEDS: Insulin DETEMIR 100 UNIT/ML X5UNITS SQ SCH (20:41)
[2018-04-11] MEDS ORDERED: Insulin DETEMIR 100 UNIT/ML X5UNITS SQ SCH (21:00)
--- NOTE | 2018-04-11 21:45 | Anesthesia Evaluation Post Op ---
Date of Encounter: 04/11/18 Time of Encounter: 21:43 - Vital Signs Vital Signs: Vital Signs/O2 Sat, Most Current Temp Pulse Resp BP Pulse Ox 97.7 F 86 18 108/82 98 04/11/18 20:15 04/11/18 21:00 04/11/18 21:00 04/11/18 21:00 04/11/18 21:00 - Lungs Lungs: Clear Ascult./Percussion - Airway Airway: Non-obstructed - Cardiovascular Irregular Rate, Baseline Rhythm - Mental Status Mental Status: Asleep with brisk response to light stimulation (reports pain is OK) - Nausea Vomiting Nausea Vomiting: Not Present - Hydration Hydration: Ice chips, Donohue catheter (purewic catheter)
[2018-04-11] MEDS: (INSULIN PUMP) SQ SCH (22:22)
[2018-04-11] MEDS ORDERED: Ringers Solution, Lactated 500 ML IVC ONE (23:40)
[2018-04-11] MEDS: Ringers Solution, Lactated 1,000 ML IVC SCH (23:45)
[2018-04-12] MEDS ORDERED: Ringers Solution, Lactated 500 ML IVC ONE (01:28)
[2018-04-12] MEDS ORDERED: Amiodarone Premix 360 MG/200 ML BAG IVC ONE (01:45)
[2018-04-12 02:36] LABS: Hematocrit 24.8 % (35.3-44.9); Hemoglobin 8.6 g/dL (11.5-15.4); Mean Corpuscular HGB Conc 34.7 g/dL (31.6-35.5); Mean Corpuscular Volume 83.5 fL (83.0-100.0); Mean Platelet Volume 11.1 fL (9.4-12.4); Platelet Count 271 K/mcL (140-400); Red Blood Count 2.97 M/mcL (3.82-4.97); Red Cell Distribution Width 13.2 % (11.5-14.5)
[2018-04-12 02:52] LABS: BUN/Creatinine Ratio 67 (6-26); Blood Urea Nitrogen 62 mg/dL (8-23); Calcium 8.1 mg/dL (8.6-10.3); Carbon Dioxide 23 mEq/L (23-29); Chloride 101 mEq/L (98-107); Glucose 294 mg/dL (70-105); Osmolality,Calculated 302 (280-300); Potassium 3.1 mEq/L (3.5-5.1); Sodium 132 mEq/L (136-145); eGFR For Non-African Americans 59 (> 60)
[2018-04-12 03:07] LABS: Lymphocytes # 0.7 K/mcL (0.6-4.6); Monocytes # 0.3 K/mcL (0.0-1.3); Neutrophils # 31.9 K/mcL (1.6-8.9)
[2018-04-12 03:08] LABS: Platelet Estimate Normal (Normal)
[2018-04-12] MEDS ORDERED: Potassium Chloride 40 MEQ, Lidocaine 1% 2 ML in D5% in Water 500 ML IVPB ONE (03:15)
[2018-04-12] MEDS: Heparin 25,000 UNIT/500 ML D5W 25,000 UNIT/500 ML BAG IVC SCH ×2 (03:36→21:53)
[2018-04-12] MEDS: *HR* Heparin 5,000 UNIT/ML VIAL IVP PRN ×4 (03:39→23:39)
--- NOTE | 2018-04-12 06:40 | Orthopedics Progress Note ---
Date of Encounter: 04/12/18 Time of Encounter: 06:39 Subjective Principal diagnosis: left shoulder pain, right knee pain, sepsis Interval history: Patient was seen this morning doing well without complaints. Afebrile vital signs stable. Operative extremity: Neurovascularly intact Dressing clean dry and intact Calves nontender Assessment and plan: Continue with postoperative care The patient left shoulder Was negative Objective Vital signs: Vital Signs Temp Pulse Resp BP Pulse Ox 04/12/18 06:00 90 95/65 04/12/18 05:00 79 123/79 04/12/18 04:01 84 97/56 04/12/18 03:30 80 94/53 04/12/18 03:29 98.7 F 88 18 117/76 97 04/12/18 03:00 88 125/64 04/12/18 02:47 81 117/61 04/12/18 02:28 114/61 04/12/18 02:00 78 133/67 04/12/18 01:30 72 85/48 04/12/18 01:00 72 83/46 04/12/18 00:22 108/56 04/11/18 23:24 87/54 04/11/18 23:22 98.8 F 74 18 82/50 97 04/11/18 22:00 82 14 105/62 97 04/11/18 21:00 86 18 108/82 98 04/11/18 20:56 98 04/11/18 20:45 89 18 103/56 97 04/11/18 20:30 89 18 105/63 98 04/11/18 20:15 97.7 F 93 18 118/56 97 04/11/18 20:00 92 18 118/56 95 04/11/18 19:40 97.9 F 91 14 112/51 98 04/11/18 19:27 99.1 F 93 18 124/57 96 04/11/18 19:17 99.1 F 93 18 126/58 96 04/11/18 19:07 94 16 129/61 96 04/11/18 18:57 95 14 134/76 96 04/11/18 18:47 99.8 F H 103 16 138/71 96 04/11/18 16:41 99.2 F 89 21 110/56 100 04/11/18 11:33 98.1 F 88 20 101/51 100 04/11/18 09:34 97.5 F L 96 19 107/50 100 04/11/18 07:56 18 100 04/11/18 07:00 98.2 F 93 20 102/47 100 Intake and Output 04/11/18 04/11/18 04/12/18 15:59 23:59 07:59 Intake Total 103 / 103 200 / 200 1708 / 1708 Output Total 355 / 355 Balance 103 / 103 -155 / -155 1708 / 1708 Intake: IV Fluids 103 / 103 200 / 200 1708 / 1708 Amiodarone Drip Premix 360mg/ 200 / 200 108 / 108 200mL 360 mg In 200 ml @ 0.5 MG /MIN 16.667 mls/hr IVC CONT R[facility]NA Rx#:[id number] Heparin 25,000 UNIT/500 ML D5W 3 / 3 0 / 0 25,000 unit In 500 ml @ 14 UNIT /KG/HR 18.676 mls/hr IVC .Q24H RIAN[facility] Rx#:[id number] Lactated Ringers 500 ML @ 1000 1500 / 1500 mls/hr IVC .Q30M ONE Rx#: [id number] Zosyn 3.375 GM In 0.9 % Sodium 100 / 100 100 / 100 Chloride (Mini-Bag +) 100 ML @ 25 mls/hr IVPB Q8HR RIANNA Rx#: [id number] Output: Urine 350 / 350 Estimated Blood Loss 5 / 5 Other: Meal NPO Percent of Meal Consumed 0% # Voids 1 # Urine Diapers 1 Weight 67.6 kg Blood Glucose* 409 297 Patient Weight 04/12/18 23:59 Weight 67.6 kg - Labs CBC & BMP: 04/12/18 02:18 04/12/18 02:18 Labs: Abnormal lab results WBC 32.9 K/mcL (4.3-11.1) H* 04/12/18 02:18 RBC 2.97 M/mcL (3.82-4.97) L 04/12/18 02:18 Hgb 8.6 g/dL (11.5-15.4) L 04/12/18 02:18 Hct 24.8 % (35.3-44.9) L 04/12/18 02:18 Neutrophils # 31.9 K/mcL (1.6-8.9) H 04/12/18 02:18 Immature Plt Fraction 13.2 % (1.1-6.1) H 04/10/18 03:56 ESR 82 mm/hr (0-15) H 04/10/18 21:56 D-Dimer 5840 ng/mLFEU (0-500) H 04/10/18 11:00 Heparin Anti-Xa, Unfract 0.09 IU/mL (0.30-0.70) L 04/12/18 02:18 VBG pCO2 33 mmHg (41-51) L 04/06/18 10:45 VBG pO2 84 mmHg (25-50) H 04/06/18 10:45 Sodium 132 mEq/L (136-145) L 04/12/18 02:18 Potassium 3.1 mEq/L (3.5-5.1) L 04/12/18 02:18 BUN 62 mg/dL (8-23) H 04/12/18 02:18 Est GFR (Non-Af Amer) 59 (> 60) L 04/12/18 02:18 BUN/Creatinine Ratio 67 (6-26) H 04/12/18 02:18 Glucose 294 mg/dL (70-105) H 04/12/18 02:18 POC Glucose 342 mg/dL (70-99) H 04/11/18 16:44 Hemoglobin A1c 7.8 % (-5.6) H 04/06/18 10:31 Calculated Osmolality 302 (280-300) H 04/12/18 02:18 Calcium 8.1 mg/dL (8.6-10.3) L 04/12/18 02:18 Phosphorus 2.5 mg/dL (2.7-4.5) L 04/07/18 03:31 Total Bilirubin 1.1 mg/dL (0.3-1.0) H 04/10/18 09:39 Alkaline Phosphatase 178 Units/L (34-104) H 04/10/18 09:39 Creatine Kinase 22 Units/L (30-223) L 04/06/18 13:46 C-Reactive Protein 237 mg/L (Less than 10) H 04/10/18 21:56 Serum Total Protein 5.6 g/dL (6.4-8.9) L 04/10/18 09:39 Albumin 2.2 g/dL (3.5-5.7) L 04/10/18 09:39 Albumin/Globulin Ratio 0.6 (1.1-2.2) L 04/10/18 09:39 TSH 0.248 mcIU/mL (0.340-5.600) L 04/06/18 10:31 Ur Specimen Adequacy See below A 04/06/18 11:55 Urine Protein 30 mg/dL (Neg-Trace) H 04/06/18 11:55 Urine Glucose (UA) 250 mg/dL (Normal) H 04/06/18 11:55 Urine Blood Small (Negative) H 04/06/18 11:55 Urine Microscopic RBC 5-15 per hpf (0-3) H 04/06/18 11:55 Ur Squamous Epith Cells Many per lpf (None-Few) H 04/06/18 11:55 Fluid Crystals CPPD Crystals Seen (None Seen) A 04/09/18 12:30 Synovial Appearance Cloudy (Clear-Hazy) A 04/09/18 12:30 Urine Opiates Screen Positive ng/mL (Vjmcjd=938) H 04/06/18 11:54 Staphylococcus sp PCR DETECTED (Not Detect) A 04/10/18 11:10 Staph aureus (PCR) DETECTED (Not Detect) A 04/10/18 11:10 mecA-Methicil Res Gene DETECTED (Not Detect) A 04/10/18 11:10 Consult Discharge Plan - Plan Referrals: Anish Live DO [Partnered Physician] -
[2018-04-12] MEDS: Budesonide/Formoterol 160/4.5 1 PUFF INH IH SCH ×2 (07:57→20:28)
[2018-04-12] MEDS: Insulin LISPRO 300 UNITS/3 ML VIAL SQ SCH ×4 (08:06→21:06)
[2018-04-12] MEDS: traMADol 50 MG TABLET PO SCH (08:20)
[2018-04-12] MEDS: Piperacillin/Tazobactam 3.375 GM in 0.9 % Sodium Chloride Mini Bag 100 ML IVPB SCH ×3 (08:21→23:32)
[2018-04-12] MEDS: Multivit/Ca/Min/Fe/FA 1 TAB TABLET PO SCH (08:22)
[2018-04-12] MEDS: Ringers Solution, Lactated 1,000 ML IVC SCH (10:02)
[2018-04-12] MEDS: *HR* OxyCODONE Immed Rel 5 MG TABLET PO PRN ×3 (10:03→21:22)
[2018-04-12] MEDS: Ibuprofen 400 MG TABLET PO PRN (10:03)
--- NOTE | 2018-04-12 10:27 | Internal Med Progress Note ---
<Erin Bergman - Last Filed: 04/12/18 10:20> Hospitalist Progress Note - Encounter Date of Encounter: 04/12/18 Time of Encounter: 09:30 - Subjective Interval History: Ms. Mckeon was seen at bedside this morning. She was awake alert and oriented 3 although she seemed mildly uncomfortable. Her daughter was at bedside with her and noted her mom is doing much better than yesterday based on her mentation. She underwent right knee arthroscopy yesterday. She also underwent left shoulder fluoroscopy but no fluid could be aspirated. This morning she was complaining of difficulty urinating. A bedside bladder scan was done and there was over thousand cc of urine. A Donohue was inserted. She is complaining of ongoing right knee and left shoulder pain. Has no other complaints denies fever, chills, nausea, emesis, shortness of breath or chest pain. - Exam Vitals: Temp Pulse Resp BP Pulse Ox 99.3 F 90 16 128/88 95 04/12/18 07:22 04/12/18 07:22 04/12/18 07:57 04/12/18 07:57 04/12/18 07:57 Exam: Constitutional: Alert and oriented 3, mildly distressed HEENT: Normocephalic, atraumatic, moist mucus membranes Heart: Regular rhythm, no murmurs, no edema Lungs: lungs clear and equal bilaterally, no rhonchi, no wheeze Abdomen: Soft, normal bowel sounds, no rigidity Extremities: Sutures on the right anterior knee, no erythema noted, right knee tenderness upon palpation; shoulder and knee pain b/l to palpation, no calf tenderness, no edema Skin: Skin warm and dry, no lesions, no rashes, no jaundice Psych: thought content congruent, normal mood and normal affect Neurological: Alert and oriented x 3 - Assessment and Plan (1) Atrial fibrillation with RVR Current Visit: Yes Status: Acute Assessment and Plan: As per cardio: Suspect in response to sepsis; Troponin negative 2. Repeat echo: Grossly normal LV chamber size and wall thickness, normal RV structure/fcn, no valvular dysf, no pulm htn CHADs VASC=5 Plan: Monitor telemetry with amiodarone On heparin Currently in sinus rhythm (2) Sepsis Current Visit: Yes Status: Acute Assessment and Plan: likely secondary to septic joint Peripheral cx positive for MRSA wbc 32.9 today, uptrending wbc on admission 10 (04/06/18), leukocytosis noted on 04/10/18 abx started and cultures drawn at that time blood cx obtained when she met sepsis criteria. Joint cx drawn 04/09/18 and peripheral cx drawn 04/10/18, both grew MRSA Yesterday underwent right knee arthroscopy irrigation debridement Had episode of hypotension overnight, her MAP was 55 She received 500 ml of lactate ringer bolus Plan: Continue maintenance lactate ringer, blood pressure is stable at this time Treating with vanc; d/c zosyn, day 3 as per ID recs Will need likely need 6 wks vanc Ortho following ID following (3) Shoulder subluxation, left Current Visit: Yes Status: Acute Assessment and Plan: XR: Severe left glenohumeral joint osteoarthritic degenerative changes with large marginal osteophytes, subchondral changes and bony remottling. Calcification suggesting calcific tendinosis of the rotator cuff. No acute fracture or dislocation No erythema, swelling or warmth to suggest septic joint. Work on motion as tolerated. PT/OT eval for motion. Pain control oxy 10s Ice as needed. Underwent IR guided fluoroscopy today and no fluid could be aspirated Plan: Requested rheumatology consult and appreciate recommendations. Medrol dose walt and flexeril was ordered but due to abnormal R knee aspiration, will hold off on Medrol for now per Rhematology recommendation Continue pain management (4) Arthritis of right knee Current Visit: Yes Status: Acute Assessment and Plan: Severe OA but RA factor neg. Orthopedic surgery consulted and recommends continue pain control and PT/OT. Consulted Rheumatology due to persistent/intractable R knee pain and s/p aspiration of R knee effusion. Plan: Joint aspiration cultures positive for gram-positive cocci Continue Zosyn, day 3 Continue vancomycin, day 3 Completed right knee arthroscopy irrigation debridement (5) Type 1 diabetes Current Visit: Yes Status: Acute Assessment and Plan: Glucose this morning 294, slightly elevated given infection Continue detemir Continue sliding-scale Monitor finger sticks (6) Hyponatremia Current Visit: Yes Status: Acute Assessment and Plan: Improving, this morning 132 Currently receiving lactated Ringer's due to episode of hypotension Will hold Lisinopril and HCTZ. Will check sodium studies. Will continue to monitor BMP (7) Abnormal TSH Current Visit: Yes Status: Acute Assessment and Plan: Likely subclinical hypothyroidism. TSH was borderline low at 0.24. T3 3.11 and T4 1.25 We will need reevaluation outpatient after treating the infection (8) Calcium pyrophosphate arthropathy Current Visit: Yes Status: Acute Assessment and Plan: Followed by rhumatology, suspecting that etiology of her arthralgias are multifactorial in setting of CPPD arthopathy and possible septic joint. hold off on steroid injections in setting of sepsis. CCP within normal limits Rh factor within normal limits (9) Bacteremia Current Visit: Yes Status: Acute Assessment and Plan: Blood cultures positive for MRSA Plan same as sepsis DVT Prophylaxis: Heparin - Time Spent with Patient Total time spent is greater than 50% in coordination of care (as documented) at patient's floor/unit and/or counseling patient: Plan of Care Discussed with: patient Internal Medicine: Result - Labs CBC & Chem 7: 04/12/18 02:18 04/12/18 02:18 Labs: Short CBC 04/11/18 04/12/18 Range/Units 09:21 02:18 WBC 32.9 H* (4.3-11.1) K/mcL Hgb 8.6 L (11.5-15.4) g/dL Hct 24.8 L (35.3-44.9) % Plt Count 271 (140-400) K/mcL Neutrophils # 24.6 H 31.9 H (1.6-8.9) K/mcL BMP 04/12/18 02:18 Sodium 132 L Potassium 3.1 L Chloride 101 Carbon Dioxide 23 BUN 62 H Creatinine 0.93 Glucose 294 H Calcium 8.1 L - ABG Interpretation ABG results: PT/INR, D-dimer PT 12.1 Seconds (9.4-12.1) 04/11/18 11:35 D-Dimer 5840 ng/mLFEU (0-500) H 04/10/18 11:00 - Impressions Impressions Joint Aspiration/Injection 04/11/18 13:09 IMPRESSION: Fluoroscopic guided left glenohumeral joint aspiration. No joint fluid could be aspirated despite repositioning the needle throughout the joint. D/ / 04/11/2018 13:54:57 Gilbert Henderson MD / osiel Interpreting Provider: Gilbert Henderson MD Consult Discharge Plan - Plan Referrals: Anish Live, [Partnered Physician] - <Arnaud Enriquez - Last Filed: 04/12/18 17:33> Hospitalist Progress Note - Exam Vitals: Temp Pulse Resp BP Pulse Ox 98.2 F 73 18 100/52 100 04/12/18 16:00 04/12/18 16:12 04/12/18 16:12 04/12/18 16:12 04/12/18 16:12 - Assessment and Plan (1) Shoulder subluxation, left Current Visit: Yes Status: Acute (2) Arthritis of right knee Current Visit: Yes Status: Acute (3) Type 1 diabetes Current Visit: Yes Status: Acute (4) Hyponatremia Current Visit: Yes Status: Acute (5) Abnormal TSH Current Visit: Yes Status: Acute (6) Calcium pyrophosphate arthropathy Current Visit: Yes Status: Acute (7) Atrial fibrillation with RVR Current Visit: Yes Status: Acute (8) Sepsis Current Visit: Yes Status: Acute (9) Bacteremia Current Visit: Yes Status: Acute - Time Spent with Patient Total time spent is greater than 50% in coordination of care (as documented) at patient's floor/unit and/or counseling patient: Internal Medicine: Result - Labs CBC & Chem 7: 04/12/18 16:20 04/12/18 02:18 Labs: Short CBC 04/12/18 04/12/18 Range/Units 02:18 16:20 WBC 32.9 H* 23.7 H (4.3-11.1) K/mcL Hgb 8.6 L 8.2 L (11.5-15.4) g/dL Hct 24.8 L 23.5 L (35.3-44.9) % Plt Count 271 253 (140-400) K/mcL Neutrophils # 31.9 H 21.4 H (1.6-8.9) K/mcL BMP 04/12/18 02:18 Sodium 132 L Potassium 3.1 L Chloride 101 Carbon Dioxide 23 BUN 62 H Creatinine 0.93 Glucose 294 H Calcium 8.1 L - ABG Interpretation ABG results: PT/INR, D-dimer PT 12.1 Seconds (9.4-12.1) 04/11/18 11:35 D-Dimer 5840 ng/mLFEU (0-500) H 04/10/18 11:00 - Impressions Impressions Joint Aspiration/Injection 04/11/18 13:09 IMPRESSION: Fluoroscopic guided left glenohumeral joint aspiration. No joint fluid could be aspirated despite repositioning the needle throughout the joint. D/ / 04/11/2018 13:54:57 Gilbert Henderson MD / osiel Interpreting Provider: Gilbert Henderson MD - Attending Attestation I examined this patient and my medical decision-making was reviewed with the Res ident Physician Dr. Bergman. I agree with the documented findings, disposition and treatment plan as described except to the extent set forth below. Ms. Mckeon is a 77 year old female with pmh of arthritis, hypertension, type 1 diabetes presented to ER on 04/06/18 with complaints of severe left shoulder and right knee pain. In the ER chest xray showed left shoulder joint subluxation and severe right knee arthritis. Pt was admitted in the hospital and evaluated by Ortho / Rheumatology. Ortho recommended conservative management and PT / OT regarding Left shoulder pain.Pt had Rt knee aspiration done by rheumatology fluid analysis showed CCPD crystal and many gram positive cocci. She was started on Vancomycin. Later she developed new onset Afib with RVR so she was started on Amiodarone gtt and transferred to Step down unit for further care. She had Left shoulder aspiration on 04/11/18, did not get much fluid out. She does have Left knee septic arthritis, had Left knee arthrocentesis and wash out on 04/11/18. She is more alert, awake and O x 3. still looks weak and lethargic. As per family she looks much better today. Gen: A, A, O x 3 Chest: Diminished BS b/l, no wheezing no crackles Heart: S1S2 + Afib a/p 1. Septic arthritis of Rt knee with MRSA 2. Sepsis / Bacteremia with MRSA ( possibly ) s/p Rt knee arthroscopy with irrigation debridement cont IV Vancomycin Appreciate ID / Ortho recommendations 3. Acute delirium / acute toxic encephalopathy improving 4. Acute Afib with RVR improved Card recommend to switch to BB However her BP in low 90's, held BB for now CHADVASC score 4.. need anti coag Cont Heparin gtt for now 5. Hypotension due to sepsis / surgery cont IV hydration <Pacheoc,Erin - Last Filed: 04/12/18 10:20> (2) Sepsis Qualifiers: Sepsis type: sepsis due to unspecified organism Qualified Code(s): A41.9 - Sepsis, unspecified organism (3) Shoulder subluxation, left Qualifiers: Encounter type: initial encounter Qualified Code(s): S43.002A - Unspecified subluxation of left shoulder joint, initial encounter (5) Type 1 diabetes Qualifiers: Qualified Code(s): E10.9 - Type 1 diabetes mellitus without complications <Arnaud Enriquez - Last Filed: 04/12/18 17:33> (1) Shoulder subluxation, left Qualifiers: Encounter type: initial encounter Qualified Code(s): S43.002A - Unspecified subluxation of left shoulder joint, initial encounter (3) Type 1 diabetes Qualifiers: Qualified Code(s): E10.9 - Type 1 diabetes mellitus without complications (8) Sepsis Qualifiers: Sepsis type: sepsis due to unspecified organism Qualified Code(s): A41.9 - Sepsis, unspecified organism
--- NOTE | 2018-04-12 12:22 | Event Note ---
Date of Encounter: 04/12/18 Time of Encounter: 12:20 - Cardiology Event Note Patient with PAF. On amio drip, now able to take po medications. Per discussion with Dr.JOhn Meza, will start BB, will discontinue amio drip. Of note, hemoglobin continues to down trend. Currently on heparin drip. [id number] score 4, ideally would be on long distance operator anticoagulation. Patient and family educated on increased risk of CVA/embolic event. Consider addition of group home anticoagulation if hemoglobin remains stable with no signs of bleeding. Cardiology will sign off and will follow in outpatient setting.
[2018-04-12] MEDS ORDERED: 0.9 % Sodium Chloride 1,000 ML IVC SCH (12:30)
[2018-04-12] MEDS: Metoprolol XL (24 HR) Succ 25 MG TAB.ER.24H PO SCH (12:34)
[2018-04-12] MEDS ORDERED: Lidocaine -MPF 1% 5 ML AMPUL INFILT ONE (14:16)
[2018-04-12 16:40] LABS: Basophils % 0.1 %; Eosinophils % 0.1 %; Hematocrit 23.5 % (35.3-44.9); Hemoglobin 8.2 g/dL (11.5-15.4); Immature Granulocytes % 2.1 % (0-4); Lymphocytes # 1.4 K/mcL (0.6-4.6); Mean Corpuscular HGB Conc 34.9 g/dL (31.6-35.5); Mean Corpuscular Hemoglobin 29.1 pg (28.0-33.3); Mean Corpuscular Volume 83.3 fL (83.0-100.0); Mean Platelet Volume 11.3 fL (9.4-12.4); Monocytes # 0.4 K/mcL (0.0-1.3); Monocytes % 1.6 %; Platelet Count 253 K/mcL (140-400); Red Blood Count 2.82 M/mcL (3.82-4.97); Red Cell Distribution Width 13.5 % (11.5-14.5); Segmented Neutrophils % 90.1 %
[2018-04-12 16:42] LABS: Neutrophils # 21.4 K/mcL (1.6-8.9)
[2018-04-12 16:55] LABS: Large Platelets Present (Not Present); Platelet Estimate Normal (Normal); Toxic Granulation Present (Not Present)
[2018-04-12 17:25] LABS: BUN/Creatinine Ratio 60 (6-26); Blood Urea Nitrogen 51 mg/dL (8-23); Calcium 7.1 mg/dL (8.6-10.3); Carbon Dioxide 22 mEq/L (23-29); Chloride 103 mEq/L (98-107); Glucose 223 mg/dL (70-105); Osmolality,Calculated 297 (280-300); Potassium 3.3 mEq/L (3.5-5.1); Sodium 133 mEq/L (136-145); eGFR For Non-African Americans > 60 (> 60)
[2018-04-12] MEDS: (INSULIN PUMP) SQ SCH (19:44)
[2018-04-12] MEDS: 0.9 % Sodium Chloride 1,000 ML IVC SCH (19:46)
[2018-04-12] MEDS: Insulin DETEMIR 100 UNIT/ML X5UNITS SQ SCH (21:06)
[2018-04-13] MEDS: 0.9 % Sodium Chloride 1,000 ML IVC SCH ×3 (05:42→18:35)
[2018-04-13] MEDS: *HR* OxyCODONE Immed Rel 5 MG TABLET PO PRN ×3 (05:42→14:58)
[2018-04-13 05:50] LABS: Hematocrit 24.7 % (35.3-44.9); Hemoglobin 8.5 g/dL (11.5-15.4); Mean Corpuscular HGB Conc 34.4 g/dL (31.6-35.5); Mean Corpuscular Hemoglobin 28.8 pg (28.0-33.3); Mean Corpuscular Volume 83.7 fL (83.0-100.0); Mean Platelet Volume 11.1 fL (9.4-12.4); Platelet Count 303 K/mcL (140-400); Red Blood Count 2.95 M/mcL (3.82-4.97); Red Cell Distribution Width 13.5 % (11.5-14.5)
[2018-04-13 05:51] LABS: Lymphocytes # 1.5 K/mcL (0.6-4.6)
[2018-04-13 06:08] LABS: Neutrophils # 23.4 K/mcL (1.6-8.9); Platelet Estimate Normal (Normal)
[2018-04-13 06:09] LABS: Anisocytosis 1+ (Not Present); BUN/Creatinine Ratio 64 (6-26); Blood Urea Nitrogen 47 mg/dL (8-23); Calcium 7.9 mg/dL (8.6-10.3); Carbon Dioxide 23 mEq/L (23-29); Chloride 105 mEq/L (98-107); Glucose 80 mg/dL (70-105); Large Platelets Present (Not Present); Osmolality,Calculated 289 (280-300); Potassium 3.4 mEq/L (3.5-5.1); Sodium 134 mEq/L (136-145); eGFR For Non-African Americans > 60 (> 60)
[2018-04-13] MEDS: *HR* Heparin 5,000 UNIT/ML VIAL IVP PRN (06:25)
--- NOTE | 2018-04-13 07:48 | Orthopedics Progress Note ---
Date of Encounter: 04/13/18 Time of Encounter: 07:47 Subjective Principal diagnosis: left shoulder pain, right knee pain, sepsis Interval history: Patient was seen this morning Afebrile vital signs stable. Operative extremity: Neurovascularly intact swelling no erythema Calves nontender Assessment and plan: Continue with postoperative care Continue IV antibiotics Objective Vital signs: Vital Signs Temp Pulse Resp BP Pulse Ox 04/13/18 07:39 101.8 F H 93 18 98/50 96 04/13/18 03:26 98.4 F 87 17 100/67 100 04/12/18 23:59 98.4 F 81 18 100/50 100 04/12/18 21:00 98.6 F 75 18 95/55 100 04/12/18 20:28 17 95/55 100 04/12/18 16:12 73 18 100/52 100 04/12/18 16:00 98.2 F 71 18 100/52 100 04/12/18 14:48 82/47 04/12/18 12:38 77 102/59 04/12/18 11:37 99.1 F 74 18 96/51 97 04/12/18 10:00 83 112/59 04/12/18 09:00 85 109/57 04/12/18 07:57 16 128/88 95 Intake and Output 04/12/18 04/12/18 04/13/18 15:59 23:59 07:59 Intake Total 449.4 / 449.4 550.6 / 550.6 1252 / 1252 Output Total 1000 / 1000 500 / 500 250 / 250 Balance -550.6 / -550.6 50.6 / 50.6 1002 / 1002 Intake: IV Fluids 449.4 / 449.4 550.6 / 550.6 1252 / 1252 0.9 % Sodium Chloride 1,000 ML 1000 / 1000 @ 100 mls/hr IVC .Q10H R[facility]NA Rx#: [id number] Heparin 25,000 UNIT/500 ML D5W 99.4 / 99.4 450.6 / 450.6 252 / 252 25,000 unit In 500 ml @ 14 UNIT /KG/HR 18.676 mls/hr IVC .Q24H R[facility] Rx#:[id number] Zosyn 3.375 GM In 0.9 % Sodium 100 / 100 100 / 100 Chloride (Mini-Bag +) 100 ML @ 25 mls/hr IVPB Q8HR RIANNA Rx#: [id number] Vancocin 1,250 MG In 0.9 % 250 / 250 Sodium Chloride 250 ML @ 166.67 mls/hr IVPB Q24H RIANNA Rx#: [id number] Output: Catheter 1000 / 1000 500 / 500 250 / 250 Other: Weight 78 kg Blood Glucose* 287 205 79 Patient Weight 04/13/18 23:59 Weight 78 kg - Labs CBC & BMP: 04/13/18 05:34 04/13/18 05:34 Labs: Abnormal lab results WBC 24.9 K/mcL (4.3-11.1) H 04/13/18 05:34 RBC 2.95 M/mcL (3.82-4.97) L 04/13/18 05:34 Hgb 8.5 g/dL (11.5-15.4) L 04/13/18 05:34 Hct 24.7 % (35.3-44.9) L 04/13/18 05:34 Band Neutrophils % 6.0 % (0-4) H 04/13/18 05:34 Neutrophils # 23.4 K/mcL (1.6-8.9) H 04/13/18 05:34 Toxic Granulation Present (Not Present) A 04/12/18 16:20 Large Platelets Present (Not Present) A 04/13/18 05:34 Immature Plt Fraction 13.2 % (1.1-6.1) H 04/10/18 03:56 Anisocytosis 1+ (Not Present) A 04/13/18 05:34 ESR 110 mm/hr (0-15) H 04/13/18 05:34 D-Dimer 5840 ng/mLFEU (0-500) H 04/10/18 11:00 Heparin Anti-Xa, Unfract 0.29 IU/mL (0.30-0.70) L 04/13/18 05:34 VBG pCO2 33 mmHg (41-51) L 04/06/18 10:45 VBG pO2 84 mmHg (25-50) H 04/06/18 10:45 Sodium 134 mEq/L (136-145) L 04/13/18 05:34 Potassium 3.4 mEq/L (3.5-5.1) L 04/13/18 05:34 BUN 47 mg/dL (8-23) H 04/13/18 05:34 BUN/Creatinine Ratio 64 (6-26) H 04/13/18 05:34 POC Glucose 205 mg/dL (70-99) H 04/12/18 20:00 Hemoglobin A1c 7.8 % (-5.6) H 04/06/18 10:31 Calcium 7.9 mg/dL (8.6-10.3) L 04/13/18 05:34 Phosphorus 2.5 mg/dL (2.7-4.5) L 04/07/18 03:31 Total Bilirubin 1.1 mg/dL (0.3-1.0) H 04/10/18 09:39 Alkaline Phosphatase 178 Units/L (34-104) H 04/10/18 09:39 Creatine Kinase 22 Units/L (30-223) L 04/06/18 13:46 C-Reactive Protein 237 mg/L (Less than 10) H 04/10/18 21:56 Serum Total Protein 5.6 g/dL (6.4-8.9) L 04/10/18 09:39 Albumin 2.2 g/dL (3.5-5.7) L 04/10/18 09:39 Albumin/Globulin Ratio 0.6 (1.1-2.2) L 04/10/18 09:39 TSH 0.248 mcIU/mL (0.340-5.600) L 04/06/18 10:31 Ur Specimen Adequacy See below A 04/06/18 11:55 Urine Protein 30 mg/dL (Neg-Trace) H 04/06/18 11:55 Urine Glucose (UA) 250 mg/dL (Normal) H 04/06/18 11:55 Urine Blood Small (Negative) H 04/06/18 11:55 Urine Microscopic RBC 5-15 per hpf (0-3) H 04/06/18 11:55 Ur Squamous Epith Cells Many per lpf (None-Few) H 04/06/18 11:55 Fluid Crystals CPPD Crystals Seen (None Seen) A 04/09/18 12:30 Synovial Appearance Cloudy (Clear-Hazy) A 04/09/18 12:30 Vancomycin Trough 12 mcg/mL (5-10) H 04/12/18 08:32 Urine Opiates Screen Positive ng/mL (Qmoilb=527) H 04/06/18 11:54 Staphylococcus sp PCR DETECTED (Not Detect) A 04/10/18 11:10 Staph aureus (PCR) DETECTED (Not Detect) A 04/10/18 11:10 mecA-Methicil Res Gene DETECTED (Not Detect) A 04/10/18 11:10 Consult Discharge Plan - Plan Referrals: Anish Live, [Partnered Physician] -
[2018-04-13] MEDS: Budesonide/Formoterol 160/4.5 1 PUFF INH IH SCH (07:55)
[2018-04-13] MEDS: Heparin 25,000 UNIT/500 ML D5W 25,000 UNIT/500 ML BAG IVC SCH ×2 (08:10→13:32)
[2018-04-13] MEDS: Multivit/Ca/Min/Fe/FA 1 TAB TABLET PO SCH (08:45)
[2018-04-13] MEDS: Piperacillin/Tazobactam 3.375 GM in 0.9 % Sodium Chloride Mini Bag 100 ML IVPB SCH ×3 (08:46→23:23)
[2018-04-13] MEDS: Acetaminophen 325 MG TABLET PO PRN (08:46)
[2018-04-13] MEDS: Insulin LISPRO 300 UNITS/3 ML VIAL SQ SCH ×4 (08:49→20:18)
[2018-04-13] MEDS: traMADol 50 MG TABLET PO SCH (08:52)
--- NOTE | 2018-04-13 09:54 | Internal Med Progress Note ---
<Erin Bergman - Last Filed: 04/13/18 09:51> Hospitalist Progress Note - Encounter Date of Encounter: 04/13/18 Time of Encounter: 08:50 - Subjective Interval History: Ms. Mckeon was seen at bedside this morning. She was awake alert and oriented 3 although she seemed mildly uncomfortable. Her daughter was at bedside with her and noted her mom is doing much better than yesterday based on her mentation. She underwent right knee arthroscopy yesterday. She also underwent left shoulder fluoroscopy but no fluid could be aspirated. This morning she was complaining of difficulty urinating. A bedside bladder scan was done and there was over thousand cc of urine. A Donohue was inserted. She is complaining of ongoing right knee and left shoulder pain. Has no other complaints denies fever, chills, nausea, emesis, shortness of breath or chest pain. - Exam Vitals: Temp Pulse Resp BP Pulse Ox 101.8 F H 93 16 98/50 96 04/13/18 07:39 04/13/18 07:39 04/13/18 07:55 04/13/18 07:39 04/13/18 07:55 Exam: Constitutional: Alert and oriented 3, highly distressed secondary to pain HEENT: Normocephalic, atraumatic, moist mucus membranes Heart: Regular rhythm, no murmurs, no edema Lungs: lungs clear and equal bilaterally, no rhonchi, no wheeze Abdomen: Soft, normal bowel sounds, no rigidity Extremities: no erythema noted at the right knee, right knee tenderness upon palpation; no shoulder pain elicited upon palpation, no calf tenderness, nonpitting edema of the left upper extremity Skin: warm and dry, no lesions, no rashes, no jaundice Psych: thought content congruent, normal mood and normal affect Neurological: Alert and oriented x 3 - Assessment and Plan (1) Atrial fibrillation with RVR Current Visit: Yes Status: Acute Assessment and Plan: New onset. As per cardio: Suspect in response to sepsis; Troponin negative 2. Repeat echo: Grossly normal LV chamber size and wall thickness, normal RV structure/fcn, no valvular dysf, no pulm htn CHADs VASC=5 Plan: Cardiology started metoprolol Hold metoprolol given low blood pressure On heparin Currently in sinus rhythm Continue to monitor (2) Sepsis Current Visit: Yes Status: Acute Assessment and Plan: likely secondary to septic joint Peripheral cx positive for MRSA wbc 24.9 today, decreased from 32.9 yesterday wbc on admission 10 (04/06/18), leukocytosis noted on 04/10/18 abx started and cultures drawn at that time blood cx obtained when she met sepsis criteria. Joint cx drawn 04/09/18 and peripheral cx drawn 04/10/18, both grew MRSA Two days ago underwent right knee arthroscopy irrigation debridement Continues to have hypotension, blood pressure 98/50 today Plan: Continue maintenance lactate ringer Continue to hold metoprolol Treating with vanc; Zosyn continued given increased white count yesterday Will need likely need 6 wks vanc Ortho following ID following (3) Bacteremia Current Visit: Yes Status: Acute Assessment and Plan: Blood cultures positive for MRSA Plan same as sepsis (4) Shoulder subluxation, left Current Visit: Yes Status: Acute Assessment and Plan: XR: Severe left glenohumeral joint osteoarthritic degenerative changes with large marginal osteophytes, subchondral changes and bony remottling. Calcification suggesting calcific tendinosis of the rotator cuff. No acute fracture or dislocation No erythema, swelling or warmth to suggest septic joint. Work on motion as tolerated. PT/OT eval for motion. Pain control oxy 10s Ice as needed. Underwent IR guided fluoroscopy two days ago and no fluid could be aspirated Plan: Requested rheumatology consult and appreciate recommendations. Medrol dose walt and flexeril was ordered but due to abnormal R knee aspiration, will hold off on Medrol for now per Rhematology recommendation Continue pain management (5) Arthritis of right knee Current Visit: Yes Status: Acute Assessment and Plan: Severe OA but RA factor neg. Orthopedic surgery consulted and recommends continue pain control and PT/OT. Consulted Rheumatology due to persistent/intractable R knee pain and s/p aspiration of R knee effusion. Plan: Joint aspiration cultures positive for gram-positive cocci Continue Zosyn, day 4 Continue vancomycin, day 4 Completed right knee arthroscopy irrigation debridement two days ago (6) Type 1 diabetes Current Visit: Yes Status: Acute Assessment and Plan: Glucose this morning 80, slightly elevated given infection Continue detemir Continue sliding-scale Monitor finger sticks (7) Hyponatremia Current Visit: Yes Status: Acute Assessment and Plan: Improving, this morning 134 Currently receiving lactated Ringer's due to episode of hypotension Will hold Lisinopril and HCTZ. Will continue to monitor BMP (8) Abnormal TSH Current Visit: Yes Status: Acute Assessment and Plan: Likely subclinical hypothyroidism. TSH was borderline low at 0.24. T3 3.11 and T4 1.25 We will need reevaluation outpatient after treating the infection (9) Calcium pyrophosphate arthropathy Current Visit: Yes Status: Acute Assessment and Plan: Followed by rhumatology, suspecting that etiology of her arthralgias are multifactorial in setting of CPPD arthopathy and possible septic joint. hold off on steroid injections in setting of sepsis. CCP within normal limits Rh factor within normal limits (10) Hypokalemia Current Visit: Yes Status: Acute Assessment and Plan: Potassium 3.4 today. Yesterday it was 3.1. Plan: Replaced with oral supplement DVT Prophylaxis: On foot pumps - Time Spent with Patient Total time spent is greater than 50% in coordination of care (as documented) at patient's floor/unit and/or counseling patient: Plan of Care Discussed with: patient Internal Medicine: Result - Labs CBC & Chem 7: 04/13/18 05:34 04/13/18 05:34 Labs: Short CBC 04/12/18 04/13/18 Range/Units 16:20 05:34 WBC 23.7 H 24.9 H (4.3-11.1) K/mcL Hgb 8.2 L 8.5 L (11.5-15.4) g/dL Hct 23.5 L 24.7 L (35.3-44.9) % Plt Count 253 303 (140-400) K/mcL Neutrophils # 21.4 H 23.4 H (1.6-8.9) K/mcL BMP 04/12/18 04/13/18 16:20 05:34 Sodium 133 L 134 L Potassium 3.3 L 3.4 L Chloride 103 105 Carbon Dioxide 22 L 23 BUN 51 H 47 H Creatinine 0.85 0.74 Glucose 223 H 80 Calcium 7.1 L 7.9 L - ABG Interpretation ABG results: PT/INR, D-dimer PT 12.1 Seconds (9.4-12.1) 04/11/18 11:35 D-Dimer 5840 ng/mLFEU (0-500) H 04/10/18 11:00 Consult Discharge Plan - Plan Referrals: Anish Live, [Partnered Physician] - <Thallapaneni,Rambabu - Last Filed: 04/13/18 15:22> Hospitalist Progress Note - Exam Vitals: Temp Pulse Resp BP Pulse Ox 99.5 F 87 18 96/56 98 04/13/18 12:06 04/13/18 12:06 04/13/18 12:06 04/13/18 12:06 04/13/18 12:06 - Assessment and Plan (1) Shoulder subluxation, left Current Visit: Yes Status: Acute (2) Arthritis of right knee Current Visit: Yes Status: Acute (3) Type 1 diabetes Current Visit: Yes Status: Acute (4) Hyponatremia Current Visit: Yes Status: Acute (5) Abnormal TSH Current Visit: Yes Status: Acute (6) Calcium pyrophosphate arthropathy Current Visit: Yes Status: Acute (7) Atrial fibrillation with RVR Current Visit: Yes Status: Acute (8) Sepsis Current Visit: Yes Status: Acute (9) Bacteremia Current Visit: Yes Status: Acute (10) Hypokalemia Current Visit: Yes Status: Acute - Time Spent with Patient Total time spent is greater than 50% in coordination of care (as documented) at patient's floor/unit and/or counseling patient: Internal Medicine: Result - Labs CBC & Chem 7: 04/13/18 05:34 04/13/18 05:34 Labs: Short CBC 04/12/18 04/13/18 Range/Units 16:20 05:34 WBC 23.7 H 24.9 H (4.3-11.1) K/mcL Hgb 8.2 L 8.5 L (11.5-15.4) g/dL Hct 23.5 L 24.7 L (35.3-44.9) % Plt Count 253 303 (140-400) K/mcL Neutrophils # 21.4 H 23.4 H (1.6-8.9) K/mcL BMP 04/12/18 04/13/18 16:20 05:34 Sodium 133 L 134 L Potassium 3.3 L 3.4 L Chloride 103 105 Carbon Dioxide 22 L 23 BUN 51 H 47 H Creatinine 0.85 0.74 Glucose 223 H 80 Calcium 7.1 L 7.9 L - ABG Interpretation ABG results: PT/INR, D-dimer PT 12.1 Seconds (9.4-12.1) 04/11/18 11:35 D-Dimer 5840 ng/mLFEU (0-500) H 04/10/18 11:00 - Attending Attestation I examined this patient and my medical decision-making was reviewed with the Resident Physician Dr. Bergman. I agree with the documented findings, disposition and treatment plan as described except to the extent set forth below. Ms. Mckeon is a 77 year old female with pmh of arthritis, hypertension, type 1 diabetes presented to ER on 04/06/18 with complaints of severe left shoulder and right knee pain. In the ER chest xray showed left shoulder joint subluxation and severe right knee arthritis. Pt was admitted in the hospital and evaluated by Ortho / Rheumatology. Ortho recommended conservative management and PT / OT regarding Left shoulder pain.Pt had Rt knee aspiration done by rheumatology fluid analysis showed CCPD crystal and many gram positive cocci. She was started on Vancomycin. Later she developed new onset Afib with RVR so she was started on Amiodarone gtt and transferred to Step down unit for further care. She had Left shoulder aspiration on 04/11/18, did not get much fluid out. She does have Left knee septic arthritis, had Left knee arthrocentesis and wash out on 04/11/18. She is more alert, awake and O x 3. still looks weak and lethargic. As per family she looks much better today. Tolerating pO intake better Gen: A, A, O x 3 Chest: Diminished BS b/l, no wheezing no crackles Heart: S1S2 + Afib a/p 1. Septic arthritis of Rt knee with MRSA 2. Sepsis / Bacteremia with MRSA s/p Rt knee arthroscopy with irrigation debridement cont IV Vancomycin Appreciate ID / Ortho recommendations 3. Acute delirium / acute toxic encephalopathy improving 4. Acute Afib with RVR improved Card recommend to switch to BB However her BP in low 90's, held BB for now CHADVASC score 4.. need anti coag Cont Heparin gtt for now 5. Hypotension due to sepsis / surgery Improving Cont IV hydration <Erin Bergman - Last Filed: 04/13/18 09:51> (2) Sepsis Qualifiers: Sepsis type: sepsis due to unspecified organism Qualified Code(s): A41.9 - Sepsis, unspecified organism (4) Shoulder subluxation, left Qualifiers: Encounter type: initial encounter Qualified Code(s): S43.002A - Unspecified subluxation of left shoulder joint, initial encounter (6) Type 1 diabetes Qualifiers: Qualified Code(s): E10.9 - Type 1 diabetes mellitus without complications <Arnaud Enriquez - Last Filed: 04/13/18 15:22> (1) Shoulder subluxation, left Qualifiers: Encounter type: initial encounter Qualified Code(s): S43.002A - Unspecified subluxation of left shoulder joint, initial encounter (3) Type 1 diabetes Qualifiers: Qualified Code(s): E10.9 - Type 1 diabetes mellitus without complications (8) Sepsis Qualifiers: Sepsis type: sepsis due to unspecified organism Qualified Code(s): A41.9 - Sepsis, unspecified organism
[2018-04-13] MEDS: (INSULIN PUMP) SQ SCH (17:42)
[2018-04-13] MEDS: Insulin DETEMIR 100 UNIT/ML X5UNITS SQ SCH (20:16)
[2018-04-13] MEDS: Ibuprofen 400 MG TABLET PO PRN (23:23)
[2018-04-14] MEDS: Budesonide/Formoterol 160/4.5 1 PUFF INH IH SCH ×3 (00:54→20:55)
[2018-04-14 02:03] LABS: Acinetobacter baumannii by PCR Not Detected (Not Detect); Candida albicans by PCR Not Detected (Not Detect); Candida glabrata by PCR Not Detected (Not Detect); Candida krusei by PCR Not Detected (Not Detect); Candida parapsilosis by PCR Not Detected (Not Detect); Candida tropicalis by PCR Not Detected (Not Detect); Enterobacter cloacae Cmplx PCR Not Detected (Not Detect); Enterobacteriaceae by PCR Not Detected (Not Detect); Enterococcus by PCR Not Detected (Not Detect); Escherichia coli by PCR Not Detected (Not Detect); Klebsiella oxytoca by PCR Not Detected (Not Detect); Klebsiella pneumoniae by PCR Not Detected (Not Detect); Proteus by PCR Not Detected (Not Detect); Pseudomonas aeruginosa by PCR Not Detected (Not Detect); Serratia marcescens by PCR Not Detected (Not Detect); Staphylococcus aureus by PCR DETECTED (Not Detect); Staphylococcus by PCR DETECTED (Not Detect); Streptococcus agalactiae(B)PCR Not Detected (Not Detect); Streptococcus by PCR Not Detected (Not Detect); Streptococcus pneumoniae PCR Not Detected (Not Detect); Streptococcus pyogenes (A) PCR Not Detected (Not Detect); mecA Methicillin-Resist Gene DETECTED (Not Detect)
[2018-04-14 04:58] LABS: BUN/Creatinine Ratio 60 (6-26); Blood Urea Nitrogen 38 mg/dL (8-23); Calcium 7.6 mg/dL (8.6-10.3); Carbon Dioxide 22 mEq/L (23-29); Chloride 105 mEq/L (98-107); Glucose 223 mg/dL (70-105); Magnesium 1.9 mg/dL (1.6-2.6); Osmolality,Calculated 292 (280-300); Potassium 3.7 mEq/L (3.5-5.1); Sodium 133 mEq/L (136-145); eGFR For Non-African Americans > 60 (> 60)
[2018-04-14 05:00] LABS: Basophils % 0.1 %; Eosinophils % 0.2 %; Hematocrit 21.4 % (35.3-44.9); Hemoglobin 7.3 g/dL (11.5-15.4); Immature Granulocytes % 2.9 % (0-4); Lymphocytes # 1.2 K/mcL (0.6-4.6); Lymphocytes % 7.4 %; Mean Corpuscular HGB Conc 34.1 g/dL (31.6-35.5); Mean Corpuscular Hemoglobin 29.1 pg (28.0-33.3); Mean Corpuscular Volume 85.3 fL (83.0-100.0); Mean Platelet Volume 11.3 fL (9.4-12.4); Monocytes # 0.4 K/mcL (0.0-1.3); Monocytes % 2.2 %; Neutrophils # 14.3 K/mcL (1.6-8.9); Platelet Count 300 K/mcL (140-400); Red Blood Count 2.51 M/mcL (3.82-4.97); Red Cell Distribution Width 13.9 % (11.5-14.5); Segmented Neutrophils % 87.2 %
[2018-04-14] MEDS: Acetaminophen 325 MG TABLET PO PRN (05:31)
--- NOTE | 2018-04-14 07:08 | Orthopedics Progress Note ---
Date of Encounter: 04/14/18 Time of Encounter: 07:07 - Assessment and Plan (1) Septic arthritis of knee, right Current Visit: Yes Status: Acute POD#3 - Right Knee I&D Cultures: Pending (prior cultures from aspiration +MRSA) Assessment and plan: Continue with postoperative care Knee ROM as tolerated, planned PT/OT as tolerated. Continue to utilize elevation and ICE for pain control Continue IV antibiotics per IDs recommendation ESR/CRP needed F/up appt set and faxed to floor. Recommend Rheum re-eval to assess edema. Qualifiers: Septic arthritis organism: staphylococcal Qualified Code(s): M00.061 - Staphylococcal arthritis, right knee (2) Bacteremia Current Visit: Yes Status: Acute (3) Shoulder subluxation, left Current Visit: Yes Status: Acute Qualifiers: Encounter type: initial encounter Qualified Code(s): S43.002A - Unspecified subluxation of left shoulder joint, initial encounter (4) Arthritis of right knee Current Visit: Yes Status: Acute Subjective Principal diagnosis: left shoulder pain, right knee pain, sepsis Interval history: Patient was seen this morning, POD#3 Right Knee Arthoscopic I&D 04/11/18 Patient reporting general malaise and not feeling well. Reports multi-joint pain and ache. No increased pain to Right knee. She has not been able to complete PTOT secondary to medical concerns. Vital Signs Temp Pulse Resp BP Pulse Ox 04/14/18 13:00 104 20 100 04/14/18 11:58 98.0 F 102 20 124/75 100 04/14/18 08:08 98.7 F 86 20 103/47 100 04/14/18 08:00 101 04/14/18 07:41 20 100 04/14/18 04:59 76 22 111/54 100 04/14/18 04:40 99.8 F H 89 20 111/33 100 04/14/18 00:21 103 22 111/54 100 04/14/18 00:05 101.4 F H 04/13/18 23:09 101.6 F H 98 22 111/54 100 04/13/18 21:45 98.7 F 97 20 104/62 100 04/13/18 20:23 98.7 F 97 20 104/62 100 04/13/18 16:41 98.2 F 89 18 102/59 100 Noted fever, last night and this AM. Short CBC 04/14/18 Range/Units 04:20 WBC 16.4 H (4.3-11.1) K/mcL Hgb 7.3 L (11.5-15.4) g/dL Hct 21.4 L (35.3-44.9) % Plt Count 300 (140-400) K/mcL Neutrophils # 14.3 H (1.6-8.9) K/mcL BMP 04/14/18 Range/Units 04:20 Sodium 133 L (136-145) mEq/L Potassium 3.7 (3.5-5.1) mEq/L Chloride 105 (98-107) mEq/L Carbon Dioxide 22 L (23-29) mEq/L BUN 38 H (8-23) mg/dL Creatinine 0.63 (0.60-1.20) mg/dL Glucose 223 H (70-105) mg/dL Calcium 7.6 L (8.6-10.3) mg/dL WBC improved. Operative extremity: Sutures intact, steri-strips in place. C/D/I. Mild Effusion noted, no erythema, no drainage. Non-tender calf NV intact distally Assessment and plan: Continue with postoperative care Continue IV antibiotics per IDs recommendation ESR/CRP needed F/up appt set and faxed to floor. Recommend Rheum re-eval to assess edema. Objective Vital signs: Vital Signs Temp Pulse Resp BP Pulse Ox 04/14/18 04:59 76 22 111/54 100 04/14/18 04:40 99.8 F H 89 20 111/33 100 04/14/18 00:21 103 22 111/54 100 04/14/18 00:05 101.4 F H 04/13/18 23:09 101.6 F H 98 22 111/54 100 04/13/18 21:45 98.7 F 97 20 104/62 100 04/13/18 20:23 98.7 F 97 20 104/62 100 04/13/18 16:41 98.2 F 89 18 102/59 100 04/13/18 12:06 99.5 F 87 18 96/56 98 04/13/18 07:55 16 96 04/13/18 07:39 101.8 F H 93 18 98/50 96 Intake and Output 04/13/18 04/13/18 04/14/18 15:59 23:59 07:59 Intake Total 940 / 940 350 / 350 Output Total 1250 / 1250 Balance 940 / 940 -900 / -900 Intake: IV Fluids 940 / 940 350 / 350 0.9 % Sodium Chloride 1,000 ML 392 / 392 @ 100 mls/hr IVC .Q10H [facility] Rx#: [id number] Heparin 25,000 UNIT/500 ML D5W 198 / 198 250 / 250 25,000 unit In 500 ml @ 14 UNIT /KG/HR 18.676 mls/hr IVC .Q24H [facility] Rx#:[id number] Zosyn 3.375 GM In 0.9 % Sodium 100 / 100 100 / 100 Chloride (Mini-Bag +) 100 ML @ 25 mls/hr IVPB Q8HR [facility] Rx#: [id number] Vancocin 1,250 MG In 0.9 % 250 / 250 Sodium Chloride 250 ML @ 166.67 mls/hr IVPB Q24H [facility] Rx#: [id number] Output: Catheter 1250 / 1250 Other: Blood Glucose* 229 332 250 - Labs CBC & BMP: 04/14/18 04:20 04/14/18 04:20 Labs: Abnormal lab results WBC 16.4 K/mcL (4.3-11.1) H 04/14/18 04:20 RBC 2.51 M/mcL (3.82-4.97) L 04/14/18 04:20 Hgb 7.3 g/dL (11.5-15.4) L 04/14/18 04:20 Hct 21.4 % (35.3-44.9) L 04/14/18 04:20 Band Neutrophils % 6.0 % (0-4) H 04/13/18 05:34 Neutrophils # 14.3 K/mcL (1.6-8.9) H 04/14/18 04:20 Toxic Granulation Present (Not Present) A 04/12/18 16:20 Large Platelets Present (Not Present) A 04/13/18 05:34 Immature Plt Fraction 13.2 % (1.1-6.1) H 04/10/18 03:56 Anisocytosis 1+ (Not Present) A 04/13/18 05:34 ESR 110 mm/hr (0-15) H 04/13/18 05:34 D-Dimer 5840 ng/mLFEU (0-500) H 04/10/18 11:00 VBG pCO2 33 mmHg (41-51) L 04/06/18 10:45 VBG pO2 84 mmHg (25-50) H 04/06/18 10:45 Sodium 133 mEq/L (136-145) L 04/14/18 04:20 Carbon Dioxide 22 mEq/L (23-29) L 04/14/18 04:20 BUN 38 mg/dL (8-23) H 04/14/18 04:20 BUN/Creatinine Ratio 60 (6-26) H 04/14/18 04:20 Glucose 223 mg/dL (70-105) H 04/14/18 04:20 POC Glucose 250 mg/dL (70-99) H 04/14/18 00:01 Hemoglobin A1c 7.8 % (-5.6) H 04/06/18 10:31 Calcium 7.6 mg/dL (8.6-10.3) L 04/14/18 04:20 Phosphorus 2.5 mg/dL (2.7-4.5) L 04/07/18 03:31 Total Bilirubin 1.1 mg/dL (0.3-1.0) H 04/10/18 09:39 Alkaline Phosphatase 178 Units/L (34-104) H 04/10/18 09:39 Creatine Kinase 22 Units/L (30-223) L 04/06/18 13:46 C-Reactive Protein 145 mg/L (Less than 10) H 04/13/18 05:34 Serum Total Protein 5.6 g/dL (6.4-8.9) L 04/10/18 09:39 Albumin 2.2 g/dL (3.5-5.7) L 04/10/18 09:39 Albumin/Globulin Ratio 0.6 (1.1-2.2) L 04/10/18 09:39 TSH 0.248 mcIU/mL (0.340-5.600) L 04/06/18 10:31 Ur Specimen Adequacy See below A 04/06/18 11:55 Urine Protein 30 mg/dL (Neg-Trace) H 04/06/18 11:55 Urine Glucose (UA) 250 mg/dL (Normal) H 04/06/18 11:55 Urine Blood Small (Negative) H 04/06/18 11:55 Urine Microscopic RBC 5-15 per hpf (0-3) H 04/06/18 11:55 Ur Squamous Epith Cells Many per lpf (None-Few) H 04/06/18 11:55 Fluid Crystals CPPD Crystals Seen (None Seen) A 04/09/18 12:30 Synovial Appearance Cloudy (Clear-Hazy) A 04/09/18 12:30 Vancomycin Trough 12 mcg/mL (5-10) H 04/12/18 08:32 Urine Opiates Screen Positive ng/mL (Hosmlo=063) H 04/06/18 11:54 Staphylococcus sp PCR DETECTED (Not Detect) A 04/13/18 05:46 Staph aureus (PCR) DETECTED (Not Detect) A 04/13/18 05:46 mecA-Methicil Res Gene DETECTED (Not Detect) A 04/13/18 05:46 Consult Discharge Plan - Plan Referrals: Misael Lopez MD [Non-Partnered Physician] - 04/28/18 1:30 pm
[2018-04-14] MEDS: traMADol 50 MG TABLET PO SCH (09:10)
[2018-04-14] MEDS: Multivit/Ca/Min/Fe/FA 1 TAB TABLET PO SCH (09:10)
[2018-04-14] MEDS: Insulin LISPRO 300 UNITS/3 ML VIAL SQ SCH ×4 (09:11→20:14)
[2018-04-14] MEDS: Piperacillin/Tazobactam 3.375 GM in 0.9 % Sodium Chloride Mini Bag 100 ML IVPB SCH (09:20)
--- NOTE | 2018-04-14 09:59 | Internal Med Progress Note ---
<Levar Oneil S - Last Filed: 04/14/18 11:34> Hospitalist Progress Note - Encounter Date of Encounter: 04/14/18 Time of Encounter: 10:00 - Subjective Interval History: Pt is seen at the bedside. She is hospital day 8. The pt was admitted with c/o left shoulder and right knee pain on 04/06. She had been experiencing increasing pain over the last 6mos and was unable to complete her ADLs due to the worsening joint pain. The pt family reported intermittent episodes of confusion. Ortho was consulted to see the pt and they recommended outpatient management with PTOT and sports medicine. They recommended rheumatology consult. The pt then experienced A fib with RVR and was put on IV heparin anticoagulation as per cardiology and lopressor. - currently the pt has beta blockers held 2/2 hypotension Rheumatology saw the pt on 04/10 after a rigth knee arthrocentesis was performed . 10cc yellow, purulent fluid was obtained and fluid analysis showed CPPD crystals and g(+) cocci. -ortho and rheumatology discussed the case and the pt was brought to the OR for arthroscopy on 04/11 Currently the pt continues to complain of excruciating pain in her shoulder. She is extremely uncomfortable and is unable to find ease. She denies any chest pain, n/v/d, abd pain or SOB. She is tolerating her diet well. - Exam Vitals: Temp Pulse Resp BP Pulse Ox 98.7 F 86 20 103/47 100 04/14/18 08:08 04/14/18 08:08 04/14/18 08:08 04/14/18 08:08 04/14/18 08:08 Exam: Constitutional: Alert and oriented 3, highly distressed secondary to pain HEENT: Normocephalic, atraumatic, moist mucus membranes Heart: Regular rhythm, no murmurs, no edema Lungs: lungs clear and equal bilaterally, no rhonchi, no wheeze Abdomen: Soft, normal bowel sounds, no rigidity Extremities: no erythema noted at the right knee, right knee tenderness upon palpation; no shoulder pain elicited upon palpation, no calf tenderness, nonpitting edema of the left upper extremity Skin: warm and dry, no lesions, no rashes, no jaundice Psych: thought content congruent, normal mood and normal affect Neurological: Alert and oriented x 3 - Assessment and Plan (1) Sepsis Current Visit: Yes Status: Resolved Assessment and Plan: Likely secondary to septic joint Currently does NOT meet sepsis criteria Blood cx (+) for MRSA, wound cx (+) for MRSA WBC count 10.3 on admission ---> on 04/14 WBC count 16.4 -WBC count trending down, was 24.9 yesterday - HR 86, RR 20 -BP 103/47 -afebrile , t = 98.7 - 04/11/18 underwent right knee arthroscopy irrigation debridement - medial and lateral menisci were evaluated. No tear of the medial or lateral meniscus was identified. - ACL and PCL w/o pathology. - rigth knee arthrocentesis was performed on 04/09 --- 10cc yellow, purulent fluid was obtained and fluid analysis showed CPPD crystals and g(+) cocci. Plan: - Continue to hold metoprolol, BP continues to be low - continue 0.9% NS 75cc/hr - Vanc/Zosyn day 5 - blood cx pending -ID following As per ID, will most likely need 4-6 wks of abx tx Plan for midline or PICC placement when closer to discharge - Ortho following - CXR pending, pt had low grade fever overnight and wbc elevated as noted above (2) Atrial fibrillation with RVR Current Visit: Yes Status: Acute Assessment and Plan: New onset A fib RVR -cardiolog consulted -Troponin <0.03 x 2 -ECHO on 04/10 showed LVEF 65-70%, normal LV systolic and diastolic fxn, no significant valvular dysfxn Currently in sinus rhythm, HR 86 -CHADVASc of 4 Plan: - amiodarone drip d/c as per cardiology - Lopressor 25mg PO adal as per cardiology, currently held 2/2 hypotension (BP this morning 103/47) - on Heparin drip as per protocol, pt had run of A fib RVR last night as per nursing staff - on telemetry (3) Shoulder subluxation, left Current Visit: Yes Status: Acute Assessment and Plan: Pt continues to c/o pain in the shoulder and arm Shoulder XR on 04/07 - Severe left glenohumeral joint osteoarthritic degenerative changes with large marginal osteophytes, subchondral changes and bony remottling. - Calcification, no acute fx or dislocation Plan: - PTOT as toleration - pain control with oxcodone - ice as needed - pt had IR guided fluorscopy 3 days ago , no fluid was aspirated - will order venous doppler US of left UE - rheumatology following - medrol dose pack and flexaril ordered; as per rheum will hold off on medrol (4) Arthritis of right knee Current Visit: Yes Status: Acute Assessment and Plan: Pt has hx of severe OA, fam hx of rheumatoid arthritis Plan: - right knee arthroscopy irrigation and debridement with Dr. Fournier 3 days ago - joint aspiration cultures positive for gram-positive cocci, repeat blood cx pending - on zosyn and vancomycin day 5 (5) Type 1 diabetes Current Visit: Yes Status: Acute Assessment and Plan: Glucose this morning 223 -continue determir -continue sliding scale as per protocol (6) Hyponatremia Current Visit: Yes Status: Acute Assessment and Plan: Sodium this morning 133 Plan: -continue 75cc/hr 0.9% NS - lisinopril and HCTZ held - check BMP in the morning (7) Abnormal TSH Current Visit: Yes Status: Acute Assessment and Plan: TSH 0.248 -FT4 1.25, FT3 3.11 -likely subclinical hypothyroidism -follow up outpatient (8) Calcium pyrophosphate arthropathy Current Visit: Yes Status: Acute Assessment and Plan: 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 - likely source of pt arthralgias, although it appears that pt has a multifactorial disease process - Rh factor <10 -CCP WNL Plan: - ortho and rheumatology consulted, appreciate recommendations - continue abx as per plan above - steroids currently held as per rheumatology (9) Bacteremia Current Visit: Yes Status: Acute Assessment and Plan: Blood cultures positive for MRSA - see plan as above for sepsis (10) Hypokalemia Current Visit: Yes Status: Acute Assessment and Plan: Potassium 3.7 today. Was 3.4 yesterday Plan: - Replaced with oral supplement - continue to monitor electrolytes (11) DVT prophylaxis Current Visit: Yes Status: Acute Assessment and Plan: on heparin drip (12) Anemia Current Visit: Yes Status: Acute Assessment and Plan: May be 2/2 to sepsis Hemoglobin trending down. -admission hemoglobin 11.3 ---> 10.9 ---> 8.6 ---> 8.5 ----> 04/14/18 hemoglobin 7.3 -currently on heparin drip Plan: -1U PRBC -check H&H in 6hr -type and screen -check FOBT DVT Prophylaxis: heparin drip - Time Spent with Patient Total time spent is greater than 50% in coordination of care (as documented) at patient's floor/unit and/or counseling patient: less than 15 minutes Plan of Care Discussed with: patient Internal Medicine: Result - Labs CBC & Chem 7: 04/14/18 04:20 04/14/18 04:20 Labs: Short CBC 04/14/18 Range/Units 04:20 WBC 16.4 H (4.3-11.1) K/mcL Hgb 7.3 L (11.5-15.4) g/dL Hct 21.4 L (35.3-44.9) % Plt Count 300 (140-400) K/mcL Neutrophils # 14.3 H (1.6-8.9) K/mcL BMP 04/14/18 04:20 Sodium 133 L Potassium 3.7 Chloride 105 Carbon Dioxide 22 L BUN 38 H Creatinine 0.63 Glucose 223 H Calcium 7.6 L - ABG Interpretation ABG results: PT/INR, D-dimer PT 12.1 Seconds (9.4-12.1) 04/11/18 11:35 D-Dimer 5840 ng/mLFEU (0-500) H 04/10/18 11:00 Consult Discharge Plan - Plan Referrals: Misael Lopez MD [Non-Partnered Physician] - 04/28/18 1:30 pm <Arnaud Enriquez - Last Filed: 04/14/18 13:47> Hospitalist Progress Note - Exam Vitals: Temp Pulse Resp BP Pulse Ox 98.0 F 102 20 124/75 100 04/14/18 11:58 04/14/18 11:58 04/14/18 11:58 04/14/18 11:58 04/14/18 11:58 - Assessment and Plan (1) Shoulder subluxation, left Current Visit: Yes Status: Acute (2) Arthritis of right knee Current Visit: Yes Status: Acute (3) Type 1 diabetes Current Visit: Yes Status: Acute (4) Hyponatremia Current Visit: Yes Status: Acute (5) Abnormal TSH Current Visit: Yes Status: Acute (6) DVT prophylaxis Current Visit: Yes Status: Acute (7) Calcium pyrophosphate arthropathy Current Visit: Yes Status: Acute (8) Atrial fibrillation with RVR Current Visit: Yes Status: Acute (9) Sepsis Current Visit: Yes Status: Resolved (10) Bacteremia Current Visit: Yes Status: Acute (11) Hypokalemia Current Visit: Yes Status: Acute (12) Anemia Current Visit: Yes Status: Acute - Time Spent with Patient Total time spent is greater than 50% in coordination of care (as documented) at patient's floor/unit and/or counseling patient: Internal Medicine: Result - Labs CBC & Chem 7: 04/14/18 04:20 04/14/18 04:20 Labs: Short CBC 04/14/18 Range/Units 04:20 WBC 16.4 H (4.3-11.1) K/mcL Hgb 7.3 L (11.5-15.4) g/dL Hct 21.4 L (35.3-44.9) % Plt Count 300 (140-400) K/mcL Neutrophils # 14.3 H (1.6-8.9) K/mcL BMP 04/14/18 04:20 Sodium 133 L Potassium 3.7 Chloride 105 Carbon Dioxide 22 L BUN 38 H Creatinine 0.63 Glucose 223 H Calcium 7.6 L - ABG Interpretation ABG results: PT/INR, D-dimer PT 12.1 Seconds (9.4-12.1) 04/11/18 11:35 D-Dimer 5840 ng/mLFEU (0-500) H 04/10/18 11:00 - Attending Attestation I examined this patient and my medical decision-making was reviewed with the Resident Physician Dr. Oneil. I agree with the documented findings, di sposition and treatment plan as described except to the extent set forth below. Ms. Mckeon is a 77 year old female with pmh of arthritis, hypertension, type 1 diabetes presented to ER on 04/06/18 with complaints of severe left shoulder and right knee pain. In the ER chest xray showed left shoulder joint subluxation and severe right knee arthritis. Pt was admitted in the hospital and evaluated by Ortho / Rheumatology. Ortho recommended conservative management and PT / OT regarding Left shoulder pain.Pt had Rt knee aspiration done by rheumatology fluid analysis showed CCPD crystal and many gram positive cocci. She was started on Vancomycin. Later she developed new onset Afib with RVR so she was started on Amiodarone gtt and transferred to Step down unit for further care. She had Left shoulder aspiration on 04/11/18, did not get much fluid out. She does have Left knee septic arthritis, had Left knee arthrocentesis and wash out on 04/11/18. She is more alert, awake and O x 3. still looks weak and lethargic. As per family she looks much better today. Tolerating PO intake better Gen: A, A, O x 3 Chest: Diminished BS b/l, no wheezing no crackles Heart: S1S2 + Afib a/p 1. Septic arthritis of Rt knee with MRSA 2. Sepsis / Bacteremia with MRSA s/p Rt knee arthroscopy with irrigation debridement cont IV Vancomycin Blood cx from 04/10/18 MRSA x 2 Repeat Blood cx 04/13/18 - G+ve cocci x 2 sets Repeat blood cx 04/14/18 - So far no growth Appreciate ID / Ortho recommendations 3. Acute delirium / acute toxic encephalopathy improving 4. Acute Afib with RVR improved Card recommend to switch to BB However her BP in low 90's, held BB for now CHADVASC score 4.. need anti coag Cont Heparin gtt for now 5. Hypotension due to sepsis / surgery Improving Cont IV hydration <Levar Oneil S - Last Filed: 04/14/18 11:34> (1) Sepsis Qualifiers: Sepsis type: sepsis due to unspecified organism Qualified Code(s): A41.9 - Sepsis, unspecified organism (3) Shoulder subluxation, left Qualifiers: Encounter type: initial encounter Qualified Code(s): S43.002A - Unspecified subluxation of left shoulder joint, initial encounter (5) Type 1 diabetes Qualifiers: Diabetes mellitus complication status: with unspecified complications Qualified Code(s): E10.8 - Type 1 diabetes mellitus with unspecified complications (12) Anemia Qualifiers: Anemia type: unspecified type Qualified Code(s): D64.9 - Anemia, unspecified <Arnaud Enriquez - Last Filed: 04/14/18 13:47> (1) Shoulder subluxation, left Qualifiers: Encounter type: initial encounter Qualified Code(s): S43.002A - Unspecified subluxation of left shoulder joint, initial encounter (3) Type 1 diabetes Qualifiers: Diabetes mellitus complication status: with unspecified complications Qualified Code(s): E10.8 - Type 1 diabetes mellitus with unspecified complications (9) Sepsis Qualifiers: Sepsis type: sepsis due to unspecified organism Qualified Code(s): A41.9 - Sepsis, unspecified organism (12) Anemia Qualifiers: Anemia type: unspecified type Qualified Code(s): D64.9 - Anemia, unspecified
--- NOTE | 2018-04-14 10:02 | Infectious Disease Progress No ---
Date of Encounter: 04/14/18 Time of Encounter: 10:00 - Assessment and Plan (1) Sepsis Current Visit: Yes Status: Acute The patient had 2 sepsis criteria plus altered mental status. Likely secondary to bacteremia and right knee septic arthritis. Improved. WBC trending down. Tachycardia improved. She did have a fever yesterday. Blood cultures drawn 04/10/18 are +2 out of 2 sets for MRSA. Repeat blood cultures drawn 04/13/18 are positive 2/2 sets. Additional blood cultures drawn 04/14/18 are pending x 2 sets. Qualifiers: Qualified Code(s): A41.9 - Sepsis, unspecified organism (2) Bacteremia Current Visit: Yes Status: Acute Causative organism: MRSA. Source: Right knee septic arthritis. Blood cultures drawn 04/10/18 are +2 out of 2 sets. Repeat blood cultures drawn 04/13/18 are positive 2/2 sets. Additional cultures drawn 04/14/18 are pending. Complicated due to the presence of septic arthritis of the right knee and persistent bacteremia. The patient has no indwelling hardware or pacemaker. The patient has one major and one minor Modified Cecil criteria. She has not have any endocarditis stigmata noted on exam. Transthoracic echocardiogram negative for vegetations. Get IDALIA prior to discharge. Check rheumatoid factor.--> <10. Continue vancomycin IV. Pharmacy to dose. Goal trough proximally 15. Vanc trough 04/12 12. Discontinue Zosyn. Duration of treatment depends on the clinical picture, but likely 4-6 weeks. Monitor renal function for drug toxicity and dose adjust antibiotics. Continue contact precautions per hospital policy. Avoid insertion of long-term IV access until repeat blood cultures are negative x 48 hours. Further OPAT recommendations to follow pending clinical and culture outcomes. (3) Septic arthritis of knee, right Current Visit: Yes Status: Acute Location: Right knee. Causative organism: MRSA MRI of the right knee showed a moderate joint effusion. The sterility of joint fluid was indeterminate on imaging and an infectious process could not be excluded. Rheumatology consult and following. Status post bedside arthrocentesis that revealed cloudy purulent fluid. Cell count with differential could not be performed due to the viscosity of the specimen. Orthopedics consulted. Status post arthroscopic I & D 04/11/[address] Fournier. Operative note reviewed. Pus noted intra-op. Cultures as above. Continue antibiotics as stated above. Duration of treatment and clinical picture, but likely 4 weeks of IV antibiotics. Monitor renal function for drug toxicity and does just antibiotics. Wound care and activity restrictions per the ortho team. Qualifiers: Qualified Code(s): M00.061 - Staphylococcal arthritis, right knee (4) Altered mental status Current Visit: Yes Status: Deleted Likely secondary to sepsis. Improved. At this point I do not think we need to be concerned about septic emboli to the brain, but the patient's altered mental status does not improve with the improvement if her bacteremia, we may need to consider MRI of the brain. Continue to monitor closely. Qualifiers: Qualified Code(s): R41.82 - Altered mental status, unspecified (5) Shoulder subluxation, left Current Visit: Yes Status: Acute Noted on imaging. IR consulted and aspiration of the joint unsuccessful. Patient reports pain is improved. Orthopedics consulted. 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 (8) Atrial fibrillation with RVR Current Visit: Yes Status: Acute Liquids secondary to sepsis. Cardiology consulted and signed off. Rate controlled. - Subjective Interval history: Patient seen and examined with family at the bedside. No acute events noted overnight. Patient states overall she does not feel very well today, but her family thinks she is doing a little better. She reports hurting "all over" and is concerned that nursing told her she only has Tylenol ordered. She states that she generally feels unwell and hurts all over. She states she had some shortness of breath this morning that improved to nasal cannula O2. She denies a cough or congestion. She is unable to localize her pain. She reports her appetite is better. Infect Dis PN-Objective Data - Labs CBC & Chem 7: 04/14/18 04:20 04/14/18 04:20 Labs: Laboratory Results - last 24 hr 04/13/18 04/13/18 04/13/18 05:34 05:46 07:38 WBC RBC Hgb Hct MCV MCH MCHC RDW Plt Count MPV Immature Gran % Seg Neutrophils % Lymphocytes % Monocytes % Eosinophils % Basophils % Neutrophils # Lymphocytes # Monocytes # Eosinophils # Basophils # Heparin Anti-Xa, Unfract Sodium Potassium Chloride Carbon Dioxide BUN Creatinine Est GFR ( Amer) Est GFR (Non-Af Amer) BUN/Creatinine Ratio Glucose POC Glucose 79 Calculated Osmolality Calcium Magnesium C-Reactive Protein 145 H A. baumannii (PCR) Not Detected Kirti albicans (PCR) Not Detected C. glabrata (PCR) Not Detected C. krusei (PCR) Not Detected C. parapsilosis (PCR) Not Detected C. tropicalis (PCR) Not Detected Enterobacteriac sp PCR Not Detected E. cloacae complex PCR Not Detected Enterococcus sp PCR Not Detected E. coli (PCR) Not Detected H. influenzae (PCR) Not Detected Klebsiella oxytoca PCR Not Detected Klebsiella pneumoniae Not Detected List. monocytogenes PCR Not Detected N. meningitidis (PCR) Not Detected Proteus species (PCR) Not Detected Serratia marcescens PCR Not Detected Staphylococcus sp PCR DETECTED A Staph aureus (PCR) DETECTED A mecA-Methicil Res Gene DETECTED A Streptococcus sp PCR Not Detected Group A Strep DNA Not Detected Group B Strep (PCR) Not Detected Strep pneumoniae (PCR) Not Detected P. aeruginosa (PCR) Not Detected Ivory/B-Vanco Res Genes N/A KPC (blaKPC) Detect PCR N/A 04/13/18 04/13/18 04/13/18 12:05 12:12 16:44 WBC RBC Hgb Hct MCV MCH MCHC RDW Plt Count MPV Immature Gran % Seg Neutrophils % Lymphocytes % Monocytes % Eosinophils % Basophils % Neutrophils # Lymphocytes # Monocytes # Eosinophils # Basophils # Heparin Anti-Xa, Unfract 0.34 Sodium Potassium Chloride Carbon Dioxide BUN Creatinine Est GFR ( Amer) Est GFR (Non-Af Amer) BUN/Creatinine Ratio Glucose POC Glucose 229 H 327 H Calculated Osmolality Calcium Magnesium C-Reactive Protein A. baumannii (PCR) Kirti albicans (PCR) C. glabrata (PCR) C. krusei (PCR) C. parapsilosis (PCR) C. tropicalis (PCR) Enterobacteriac sp PCR E. cloacae complex PCR Enterococcus sp PCR E. coli (PCR) H. influenzae (PCR) Klebsiella oxytoca PCR Klebsiella pneumoniae List. monocytogenes PCR N. meningitidis (PCR) Proteus species (PCR) Serratia marcescens PCR Staphylococcus sp PCR Staph aureus (PCR) mecA-Methicil Res Gene Streptococcus sp PCR Group A Strep DNA Group B Strep (PCR) Strep pneumoniae (PCR) P. aeruginosa (PCR) Ivory/B-Vanco Res Genes KPC (blaKPC) Detect PCR 04/13/18 04/13/18 04/14/18 19:03 20:15 00:01 WBC RBC Hgb Hct MCV MCH MCHC RDW Plt Count MPV Immature Gran % Seg Neutrophils % Lymphocytes % Monocytes % Eosinophils % Basophils % Neutrophils # Lymphocytes # Monocytes # Eosinophils # Basophils # Heparin Anti-Xa, Unfract 0.36 Sodium Potassium Chloride Carbon Dioxide BUN Creatinine Est GFR ( Amer) Est GFR (Non-Af Amer) BUN/Creatinine Ratio Glucose POC Glucose 332 H 250 H Calculated Osmolality Calcium Magnesium C-Reactive Protein A. baumannii (PCR) Kirti albicans (PCR) C. glabrata (PCR) C. krusei (PCR) C. parapsilosis (PCR) C. tropicalis (PCR) Enterobacteriac sp PCR E. cloacae complex PCR Enterococcus sp PCR E. coli (PCR) H. influenzae (PCR) Klebsiella oxytoca PCR Klebsiella pneumoniae List. monocytogenes PCR N. meningitidis (PCR) Proteus species (PCR) Serratia marcescens PCR Staphylococcus sp PCR Staph aureus (PCR) mecA-Methicil Res Gene Streptococcus sp PCR Group A Strep DNA Group B Strep (PCR) Strep pneumoniae (PCR) P. aeruginosa (PCR) Iv[place]/B-Vanco Res Genes KPC (blaKPC) Detect PCR 04/14/18 04/14/18 04/14/18 04:20 04:20 05:39 WBC 16.4 H RBC 2.51 L Hgb 7.3 L Hct 21.4 L MCV 85.3 MCH 29.1 MCHC 34.1 RDW 13.9 Plt Count 300 MPV 11.3 Immature Gran % 2.9 Seg Neutrophils % 87.2 Lymphocytes % 7.4 Monocytes % 2.2 Eosinophils % 0.2 Basophils % 0.1 Neutrophils # 14.3 H Lymphocytes # 1.2 Monocytes # 0.4 Eosinophils # 0.0 Basophils # 0.0 Heparin Anti-Xa, Unfract Sodium 133 L Potassium 3.7 Chloride 105 Carbon Dioxide 22 L BUN 38 H Creatinine 0.63 Est GFR ( Amer) > 60 Est GFR (Non-Af Amer) > 60 BUN/Creatinine Ratio 60 H Glucose 223 H POC Glucose 194 H Calculated Osmolality 292 Calcium 7.6 L Magnesium 1.9 C-Reactive Protein A. baumannii (PCR) Kirti albicans (PCR) C. glabrata (PCR) C. krusei (PCR) C. parapsilosis (PCR) C. tropicalis (PCR) Enterobacteriac sp PCR E. cloacae complex PCR Enterococcus sp PCR E. coli (PCR) H. influenzae (PCR) Klebsiella oxytoca PCR Klebsiella pneumoniae List. monocytogenes PCR N. meningitidis (PCR) Proteus species (PCR) Serratia marcescens PCR Staphylococcus sp PCR Staph aureus (PCR) mecA-Methicil Res Gene Streptococcus sp PCR Group A Strep DNA Group B Strep (PCR) Strep pneumoniae (PCR) P. aeruginosa (PCR) [place]/B-Vanco Res Genes KPC (blaKPC) Detect PCR Cultures: Cultures 04/11/18 18:25 Anaerobic Culture - Preliminary Right Knee At this time, no anaerobic growth is present. The culture will be finalized after 5 days of incubation. 04/13/18 05:46 Blood Culture - Preliminary Peripheral Venipuncture Gram Positive Cocci - Clusters 04/11/18 18:25 Wound Culture - Final Right Knee Methicillin Resistant S.aureus 04/14/18 04:20 Blood Culture - Preliminary Peripheral Venipuncture Culture is incubating and being continuously monitored for growth. Final report to follow. 04/14/18 04:20 Blood Culture - Preliminary Peripheral Venipuncture Culture is incubating and being continuously monitored for growth. Final report to follow. 04/13/18 05:34 Blood Culture - Preliminary Peripheral Venipuncture Gram Positive Cocci - Clusters 04/10/18 11:00 Blood Culture - Final Peripheral Venipuncture Methicillin Resistant S.aureus 04/10/18 11:10 Blood Culture - Final Peripheral Venipuncture Methicillin Resistant S.aureus 04/09/18 12:30 Body Fluid Culture - Final Synovial Fluid Methicillin Resistant S.aureus Serology 04/13/18 04/10/18 04/10/18 Range/Units 05:46 16:41 16:41 Ur Specimen Adequacy Urine Color (Yellow) Urine Clarity (Clear) Urine pH (5.0-8.0) pH Units Ur Specific [place] (1.010-1.025) Urine Protein (Neg-Trace) mg/dL Urine Glucose (UA) (Normal) mg/dL Urine Ketones (Negative) mg/dL Urine Blood (Negative) Urine Nitrite (Negative) Urine Bilirubin (Negative) Urine Urobilinogen (Normal) mg/dL Ur Leukocyte Esterase (Negative) Urine Microscopic RBC (0-3) per hpf Urine Microscopic WBC (0-3) per hpf Ur Squamous Epith Cells (None-Few) per lpf Urine Bacteria (None-Few) per hpf Hyaline Casts Ur Culture Indicated? (NO) Urine Osmolality 407 (300-1090) mOsm/kg Urine Sodium 21.3 mEq/L Fluid Crystals (None Seen) Synovial Source Synovial Color (Straw) Synovial Appearance (Clear-Hazy) Synovial Volume mL Synovial RBC Synovial Tot Nuc Cell Synovial Band Neuts Synovial Basophils Synovial Eosinophils Synovial Seg Neuts % % Synovial Lymphocytes % % Synovial Monocytes % % Synovial Other Cells % A. baumannii (PCR) Not Detected (Not Detect) Kirti albicans (PCR) Not Detected (Not Detect) C. glabrata (PCR) Not Detected (Not Detect) C. krusei (PCR) Not Detected (Not Detect) C. parapsilosis (PCR) Not Detected (Not Detect) C. tropicalis (PCR) Not Detected (Not Detect) Enterobacteriac sp PCR Not Detected (Not Detect) E. cloacae complex PCR Not Detected (Not Detect) Enterococcus sp PCR Not Detected (Not Detect) E. coli (PCR) Not Detected (Not Detect) H. influenzae (PCR) Not Detected (Not Detect) Klebsiella oxytoca PCR Not Detected (Not Detect) Klebsiella pneumoniae Not Detected (Not Detect) List. monocytogenes PCR Not Detected (Not Detect) N. meningitidis (PCR) Not Detected (Not Detect) Proteus species (PCR) Not Detected (Not Detect) Serratia marcescens PCR Not Detected (Not Detect) Staphylococcus sp PCR DETECTED A (Not Detect) Staph aureus (PCR) DETECTED A (Not Detect) mecA-Methicil Res Gene DETECTED A (Not Detect) Streptococcus sp PCR Not Detected (Not Detect) Group A Strep DNA Not Detected (Not Detect) Group B Strep (PCR) Not Detected (Not Detect) Strep pneumoniae (PCR) Not Detected (Not Detect) P. aeruginosa (PCR) Not Detected (Not Detect) Ivory/B-Vanco Res Genes N/A (Not Detect) KPC (blaKPC) Detect PCR N/A (Not Detect) 04/10/18 04/09/18 04/09/18 Range/Units 11:10 12:30 12:30 Ur Specimen Adequacy Urine Color (Yellow) Urine Clarity (Clear) Urine pH (5.0-8.0) pH Units Ur Specific [place] (1.010-1.025) Urine Protein (Neg-Trace) mg/dL Urine Glucose (UA) (Normal) mg/dL Urine Ketones (Negative) mg/dL Urine Blood (Negative) Urine Nitrite (Negative) Urine Bilirubin (Negative) Urine Urobilinogen (Normal) mg/dL Ur Leukocyte Esterase (Negative) Urine Microscopic RBC (0-3) per hpf Urine Microscopic WBC (0-3) per hpf Ur Squamous Epith Cells (None-Few) per lpf Urine Bacteria (None-Few) per hpf Hyaline Casts Ur Culture Indicated? (NO) Urine Osmolality (300-1090) mOsm/kg Urine Sodium mEq/L Fluid Crystals CPPD Crystals Seen A (None Seen) Synovial Source RIGHT KNEE Synovial Color Straw (Straw) Synovial Appearance Cloudy A (Clear-Hazy) Synovial Volume 8.0 mL Synovial RBC TNP Synovial Tot Nuc Cell TNP Synovial Band Neuts Test Not Performed Synovial Basophils Test Not Performed Synovial Eosinophils Test Not Performed Synovial Seg Neuts % 2.0 % Synovial Lymphocytes % 84.0 % Synovial Monocytes % 14.0 % Synovial Other Cells % Test Not Performed A. baumannii (PCR) Not Detected (Not Detect) Kirti albicans (PCR) Not Detected (Not Detect) C. glabrata (PCR) Not Detected (Not Detect) C. krusei (PCR) Not Detected (Not Detect) C. parapsilosis (PCR) Not Detected (Not Detect) C. tropicalis (PCR) Not Detected (Not Detect) Enterobacteriac sp PCR Not Detected (Not Detect) E. cloacae complex PCR Not Detected (Not Detect) Enterococcus sp PCR Not Detected (Not Detect) E. coli (PCR) Not Detected (Not Detect) H. influenzae (PCR) Not Detected (Not Detect) Klebsiella oxytoca PCR Not Detected (Not Detect) Klebsiella pneumoniae Not Detected (Not Detect) List. monocytogenes PCR Not Detected (Not Detect) N. meningitidis (PCR) Not Detected (Not Detect) Proteus species (PCR) Not Detected (Not Detect) Serratia marcescens PCR Not Detected (Not Detect) Staphylococcus sp PCR DETECTED A (Not Detect) Staph aureus (PCR) DETECTED A (Not Detect) mecA-Methicil Res Gene DETECTED A (Not Detect) Streptococcus sp PCR Not Detected (Not Detect) Group A Strep DNA Not Detected (Not Detect) Group B Strep (PCR) Not Detected (Not Detect) Strep pneumoniae (PCR) Not Detected (Not Detect) P. aeruginosa (PCR) Not Detected (Not Detect) Ivory/B-Vanco Res Genes N/A (Not Detect) KPC (blaKPC) Detect PCR N/A (Not Detect) 04/06/18 Range/Units 11:55 Ur Specimen Adequacy See below A Urine Color Yellow (Yellow) Urine Clarity Clear (Clear) Urine pH 5.5 (5.0-8.0) pH Units Ur Specific [place] 1.014 (1.010-1.025) Urine Protein 30 H (Neg-Trace) mg/dL Urine Glucose (UA) 250 H (Normal) mg/dL Urine Ketones Negative (Negative) mg/dL Urine Blood Small H (Negative) Urine Nitrite Negative (Negative) Urine Bilirubin Negative (Negative) Urine Urobilinogen Normal (Normal) mg/dL Ur Leukocyte Esterase Negative (Negative) Urine Microscopic RBC 5-15 H (0-3) per hpf Urine Microscopic WBC 0-3 (0-3) per hpf Ur Squamous Epith Cells Many H (None-Few) per lpf Urine Bacteria None Seen (None-Few) per hpf Hyaline Casts Test Not Performed Ur Culture Indicated? NO (NO) Urine Osmolality (300-1090) mOsm/kg Urine Sodium mEq/L Fluid Crystals (None Seen) Synovial Source Synovial Color (Straw) Synovial Appearance (Clear-Hazy) Synovial Volume mL Synovial RBC Synovial Tot Nuc Cell Synovial Band Neuts Synovial Basophils Synovial Eosinophils Synovial Seg Neuts % % Synovial Lymphocytes % % Synovial Monocytes % % Synovial Other Cells % A. baumannii (PCR) (Not Detect) Kirti albicans (PCR) (Not Detect) C. glabrata (PCR) (Not Detect) C. krusei (PCR) (Not Detect) C. parapsilosis (PCR) (Not Detect) C. tropicalis (PCR) (Not Detect) Enterobacteriac sp PCR (Not Detect) E. cloacae complex PCR (Not Detect) Enterococcus sp PCR (Not Detect) E. coli (PCR) (Not Detect) H. influenzae (PCR) (Not Detect) Klebsiella oxytoca PCR (Not Detect) Klebsiella pneumoniae (Not Detect) List. monocytogenes PCR (Not Detect) N. meningitidis (PCR) (Not Detect) Proteus species (PCR) (Not Detect) Serratia marcescens PCR (Not Detect) Staphylococcus sp PCR (Not Detect) Staph aureus (PCR) (Not Detect) mecA-Methicil Res Gene (Not Detect) Streptococcus sp PCR (Not Detect) Group A Strep DNA (Not Detect) Group B Strep (PCR) (Not Detect) Strep pneumoniae (PCR) (Not Detect) P. aeruginosa (PCR) (Not Detect) Ivory/B-Vanco Res Genes (Not Detect) KPC (blaKPC) Detect PCR (Not Detect) Exam - Constitutional Vitals: Temp Pulse Resp BP Pulse Ox 98.7 F 86 20 103/47 100 04/14/18 08:08 04/14/18 08:08 04/14/18 08:08 04/14/18 08:08 04/14/18 08:08 General appearance: average body habitus, cooperative, no acute distress - Head Head exam: Present: atraumatic, normal inspection, normocephalic - Eye Eye exam: Present: EOMI, normal appearance, PERRL Pupils: Present: normal accommodation Additional comments: No subconjunctival hemorrhage noted. - ENT ENT exam: Present: mucous membranes moist - Neck Neck exam: Present: normal inspection - Respiratory Respiratory exam: Present: CTAB. Absent: rales, respiratory distress, rhonchi, wheezes - Cardiovascular Cardiovascular exam: Present: RRR, +S1, +S2 - GI/Abdominal GI/Abdominal exam: Present: normal bowel sounds, soft. Absent: distended, tenderness Additional comments: Donohue catheter noted to be draining clear yellow urine. - Extremities Exam Extremities exam: Present: joint swelling (Mild, right knee), tenderness (right knee). Absent: normal inspection (Right knee surgical sites with sutures and steri-strips intact. No erythema or warmth noted.), pedal edema - Neurological Exam Neurological exam: Present: alert, oriented X3, no focal deficits - Psychiatric Psychiatric exam: Present: normal affect, normal mood - Skin Skin exam: Present: dry, intact, normal color, warm Additional comments: No endocarditis stigmata noted. Consult Discharge Plan - Plan Referrals: Anish Live, [Partnered Physician] -
[2018-04-14] MEDS: *HR* OxyCODONE Immed Rel 5 MG TABLET PO PRN ×3 (11:24→19:55)
--- NOTE | 2018-04-14 12:20 | Event Note ---
Date of Encounter: 04/14/18 Time of Encounter: 12:00 Chart review; patient has been diagnosed with sepsis bacteremia and septic joint. Ortho and ID now following. I will sign off and patient can be referred to follow-up at discharge for CPPD evaluation.
[2018-04-14] MEDS: 0.9 % Sodium Chloride 1,000 ML IVC SCH (13:01)
[2018-04-14] MEDS ORDERED: 0.9 % Sodium Chloride 250 ML ONE ×2 (15:16→19:47)
[2018-04-14 19:29] LABS: Hematocrit 27.2 % (35.3-44.9)
[2018-04-14] MEDS ORDERED: 0.9 % Sodium Chloride 1,000 ML IVC SCH (20:00)
[2018-04-14] MEDS: Insulin DETEMIR 100 UNIT/ML X5UNITS SQ SCH (20:44)
[2018-04-14] MEDS: *HR* Heparin 5,000 UNIT/ML VIAL IVP PRN (21:00)
[2018-04-14] MEDS: Ibuprofen 400 MG TABLET PO PRN (23:33)
[2018-04-15] MEDS: *HR* OxyCODONE Immed Rel 5 MG TABLET PO PRN ×5 (01:43→20:33)
[2018-04-15] MEDS: Heparin 25,000 UNIT/500 ML D5W 25,000 UNIT/500 ML BAG IVC SCH ×2 (01:43→15:28)
[2018-04-15 04:40] LABS: Basophils % 0.2 %; Eosinophils # 0.1 K/mcL (0.0-0.6); Eosinophils % 0.4 %; Immature Granulocytes % 3.6 % (0-4); Lymphocytes # 1.6 K/mcL (0.6-4.6); Lymphocytes % 9.1 %; Mean Corpuscular HGB Conc 33.3 g/dL (31.6-35.5); Mean Corpuscular Hemoglobin 28.8 pg (28.0-33.3); Mean Corpuscular Volume 86.3 fL (83.0-100.0); Monocytes # 0.5 K/mcL (0.0-1.3); Monocytes % 2.7 %; Neutrophils # 14.8 K/mcL (1.6-8.9); Platelet Count 359 K/mcL (140-400); Red Blood Count 3.13 M/mcL (3.82-4.97); Red Cell Distribution Width 14.2 % (11.5-14.5)
[2018-04-15 05:01] LABS: Alanine Aminotransferase 14 Units/L (7-52); Albumin 1.7 g/dL (3.5-5.7); Albumin/Globulin Ratio 0.5 (1.1-2.2); Alkaline Phosphatase 260 Units/L (34-104); Aspartate Amino Transferase 18 Units/L (13-39); BUN/Creatinine Ratio 60 (6-26); Blood Urea Nitrogen 28 mg/dL (8-23); Calcium 7.8 mg/dL (8.6-10.3); Carbon Dioxide 24 mEq/L (23-29); Chloride 104 mEq/L (98-107); Globulin 3.1 g/dL (2.4-3.5); Glucose 256 mg/dL (70-105); Osmolality,Calculated 290 (280-300); Potassium 3.8 mEq/L (3.5-5.1); Sodium 133 mEq/L (136-145); Total Protein 4.8 g/dL (6.4-8.9); eGFR For Non-African Americans > 60 (> 60)
[2018-04-15] MEDS: *HR* Heparin 5,000 UNIT/ML VIAL IVP PRN ×3 (05:01→19:23)
--- NOTE | 2018-04-15 08:06 | Internal Med Progress Note ---
<Levar Oneil S - Last Filed: 04/15/18 10:54> Hospitalist Progress Note - Encounter Date of Encounter: 04/15/18 Time of Encounter: 08:02 - Subjective Interval History: Pt is seen at the bedside. She is hospital day 9. The pt was admitted with c/o left shoulder and right knee pain on 04/06. She had been experiencing increasing pain over the last 6mos and was unable to complete her ADLs due to the worsening joint pain. The pt family reported intermittent episodes of confusion. Ortho was consulted to see the pt and they recommended outpatient management with PTOT and sports medicine. They recommended rheumatology consult. The pt then experienced A fib with RVR and was put on IV heparin anticoagulation as per cardiology and lopressor. - currently the pt has beta blockers held 2/2 hypotension Rheumatology saw the pt on 04/10 after a rigth knee arthrocentesis was performed . 10cc yellow, purulent fluid was obtained and fluid analysis showed CPPD crystals and g(+) cocci. -ortho and rheumatology discussed the case and the pt was brought to the OR for arthroscopy on 04/11 Currently the pt states her arm pain is much better today and that she is a lot more comfortable. The pt denies any chest pain, N/V/D, abd pain, or SOB. She is tolerating diet. - Exam Vitals: Temp Pulse Resp BP Pulse Ox 98.1 F 91 18 120/68 100 04/15/18 07:40 04/15/18 07:40 04/15/18 07:40 04/15/18 07:40 04/15/18 07:40 Exam: Constitutional: Alert and oriented 3, highly distressed secondary to pain HEENT: Normocephalic, atraumatic, moist mucus membranes Heart: Regular rhythm, no murmurs, no edema Lungs: lungs clear and equal bilaterally, no rhonchi, no wheeze Abdomen: Soft, normal bowel sounds, no rigidity Extremities: no erythema noted at the right knee, right knee tenderness upon palpation; no shoulder pain elicited upon palpation, no calf tenderness, nonpitting edema of the left upper extremity has improved Skin: warm and dry, no lesions, no rashes, no jaundice Psych: thought content congruent, normal mood and normal affect Neurological: Alert and oriented x 3 - Assessment and Plan (1) Deep venous thrombosis of left upper extremity Current Visit: Yes Status: Acute Assessment and Plan: Pt has been reporting LUE pain -US ordered 04/14 revealed DVT in the left brachial and radial veins of the LUE Plan: - continue heparin drip - will speak to pharmacy about transitioning to eliquis and continuing anticoagulation after discharge (2) Sepsis Current Visit: Yes Status: Resolved Assessment and Plan: Likely secondary to septic joint Currently does NOT meet sepsis criteria Blood cx (+) for MRSA, wound cx (+) for MRSA, repeat blood cx resulted 04/14 and was positive for g(+) cocci WBC count 10.3 on admission ---> on 04/14 WBC count 16.4 ----> 04/15 WBC count 17.6 - HR 77, RR 18 -BP 120/68 -afebrile , t = 98.1 - 04/11/18 underwent right knee arthroscopy irrigation debridement - medial and lateral menisci were evaluated. No tear of the medial or lateral meniscus was identified. - ACL and PCL w/o pathology. - right knee arthrocentesis was performed on 04/09 --- 10cc yellow, purulent fluid was obtained and fluid analysis showed CPPD crystals and g(+) cocci. Plan: - Can restart Lopressor, BP has been stable - continue 0.9% NS 50cc/hr - Vancomycin day 6 - Zosyn d/c yesterday as per ortho -ID following As per ID, will most likely need 4-6 wks of abx tx Plan for midline or PICC placement when closer to discharge - Ortho following - blood cx pending (3) Anemia Current Visit: Yes Status: Acute Assessment and Plan: May be 2/2 to sepsis Hemoglobin trending down. -admission hemoglobin 11.3 ---> 10.9 ---> 8.6 ---> 8.5 ----> 04/14/18 hemoglobin 7.3 -currently on heparin drip - pt was given 1 unit of RBC yesterday, hgb improved to 9 Plan: - FOBT pending - continue to monitor cbc (4) Atrial fibrillation with RVR Current Visit: Yes Status: Resolved Assessment and Plan: New onset A fib RVR -cardiology consulted and signed off -Troponin <0.03 x 2 -ECHO on 04/10 showed LVEF 65-70%, normal LV systolic and diastolic fxn, no significant valvular dysfxn Currently in sinus rhythm, HR 77 -CHADVASc of 4 Plan: - amiodarone drip d/c as per cardiology - Lopressor 25mg PO adal as per cardiology, will restart today as BP has been stable - on Heparin drip as per protocol, pt had run of A fib RVR 04/13 as per nursing staff - on telemetry (5) Shoulder subluxation, left Current Visit: Yes Status: Acute Assessment and Plan: Pt pain improving Shoulder XR on 04/07 - Severe left glenohumeral joint osteoarthritic degenerative changes with large marginal osteophytes, subchondral changes and bony remottling. - Calcification, no acute fx or dislocation Plan: - PTOT as toleration - pain control with oxcodone - ice as needed - pt had IR guided fluorscopy 4 days ago , no fluid was aspirated - rheumatology following - medrol dose pack and flexaril ordered; as per rheum will hold off on medrol (6) Arthritis of right knee Current Visit: Yes Status: Acute Assessment and Plan: Pt has hx of severe OA, fam hx of rheumatoid arthritis Plan: - right knee arthroscopy irrigation and debridement with Dr. Fournier 3 days ago - joint aspiration cultures positive for gram-positive cocci, repeat blood cx showed g(+) cocci - vancomycin day 6 - zosyn d/c 04/14 (7) Type 1 diabetes Current Visit: Yes Status: Acute Assessment and Plan: Glucose this morning 256 -continue determir, increased to 15U -continue sliding scale as per protocol (8) Hyponatremia Current Visit: Yes Status: Acute Assessment and Plan: Sodium this morning 133 Plan: -continue 75cc/hr 0.9% NS - lisinopril and HCTZ held - check BMP in the morning (9) Abnormal TSH Current Visit: Yes Status: Acute Assessment and Plan: TSH 0.248 -FT4 1.25, FT3 3.11 -likely subclinical hypothyroidism -follow up outpatient (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 Was 3.4 04/13 Plan: - Replaced with oral supplement - continue to monitor electrolytes (13) DVT prophylaxis Current Visit: Yes Status: Acute Assessment and Plan: on heparin drip (14) Pneumonia Current Visit: Yes Status: Acute Assessment and Plan: Pt has been having temperature spikes, overnight t max was 100.5 -WBC count elevated from yesterday, 16.4 ---> 17.6 CXR on 04/14/18 showed bilateral effusions with bibasilar airspace disease Blood cx showed g(+) cocci Pt doesn't meet sepsis criteria currently Plan: - continue vancomycin day 6 - ID following spoke with Valencia Barakat, she recommended checking CT chest to r/o septic emboli repeat blood cx with morning labs DVT Prophylaxis: heparin drip - Time Spent with Patient Total time spent is greater than 50% in coordination of care (as documented) at patient's floor/unit and/or counseling patient: less than 15 minutes Plan of Care Discussed with: patient Internal Medicine: Result - Labs CBC & Chem 7: 04/15/18 04:14 04/15/18 04:14 Labs: Short CBC 04/14/18 04/15/18 Range/Units 19:18 04:14 WBC 17.6 H (4.3-11.1) K/mcL Hgb 9.0 L D 9.0 L (11.5-15.4) g/dL Hct 27.2 L 27.0 L (35.3-44.9) % Plt Count 359 (140-400) K/mcL Neutrophils # 14.8 H (1.6-8.9) K/mcL BMP 04/15/18 04:14 Sodium 133 L Potassium 3.8 Chloride 104 Carbon Dioxide 24 BUN 28 H Creatinine 0.47 L Glucose 256 H Calcium 7.8 L Liver Function 04/15/18 Range/Units 04:14 Total Bilirubin 1.0 (0.3-1.0) mg/dL AST 18 (13-39) Units/L ALT 14 (7-52) Units/L Alkaline Phosphatase 260 H (34-104) Units/L Albumin 1.7 L (3.5-5.7) g/dL - ABG Interpretation ABG results: PT/INR, D-dimer PT 12.1 Seconds (9.4-12.1) 04/11/18 11:35 D-Dimer 5840 ng/mLFEU (0-500) H 04/10/18 11:00 - Impressions Impressions Chest X-Ray 04/14/18 10:40 IMPRESSION: Bilateral effusions with bibasilar airspace disease, likely pneumonia. Follow-up to resolution is recommended. D/ / Karly Alford Cha, MD / Karly Alford Cha, MD Interpreting Provider: Karly Alford Cha, MD Consult Discharge Plan - Plan Referrals: Misael Lopez MD [Non-Partnered Physician] - (Patient is going to rehab no PCP appointment needed) <Joseph Arciniega - Last Filed: 04/15/18 16:24> Hospitalist Progress Note - Exam Vitals: Temp Pulse Resp BP Pulse Ox 98.8 F 94 18 131/72 100 04/15/18 11:15 04/15/18 14:09 04/15/18 11:15 04/15/18 11:15 04/15/18 11:15 - Assessment and Plan (1) Shoulder subluxation, left Current Visit: Yes Status: Acute (2) Arthritis of right knee Current Visit: Yes Status: Acute (3) Type 1 diabetes Current Visit: Yes Status: Acute (4) Hyponatremia Current Visit: Yes Status: Acute (5) Abnormal TSH Current Visit: Yes Status: Acute (6) DVT prophylaxis Current Visit: Yes Status: Acute (7) Calcium pyrophosphate arthropathy Current Visit: Yes Status: Acute (8) Atrial fibrillation with RVR Current Visit: Yes Status: Resolved (9) Sepsis Current Visit: Yes Status: Resolved (10) Bacteremia Current Visit: Yes Status: Acute (11) Hypokalemia Current Visit: Yes Status: Resolved (12) Anemia Current Visit: Yes Status: Acute (13) Deep venous thrombosis of left upper extremity Current Visit: Yes Status: Acute (14) Pneumonia Current Visit: Yes Status: Suspected - Time Spent with Patient Total time spent is greater than 50% in coordination of care (as documented) at patient's floor/unit and/or counseling patient: Internal Medicine: Result - Labs CBC & Chem 7: 04/15/18 04:14 04/15/18 04:14 Labs: Short CBC 04/14/18 04/15/18 Range/Units 19:18 04:14 WBC 17.6 H (4.3-11.1) K/mcL Hgb 9.0 L D 9.0 L (11.5-15.4) g/dL Hct 27.2 L 27.0 L (35.3-44.9) % Plt Count 359 (140-400) K/mcL Neutrophils # 14.8 H (1.6-8.9) K/mcL BMP 04/15/18 04:14 Sodium 133 L Potassium 3.8 Chloride 104 Carbon Dioxide 24 BUN 28 H Creatinine 0.47 L Glucose 256 H Calcium 7.8 L Liver Function 04/15/18 Range/Units 04:14 Total Bilirubin 1.0 (0.3-1.0) mg/dL AST 18 (13-39) Units/L ALT 14 (7-52) Units/L Alkaline Phosphatase 260 H (34-104) Units/L Albumin 1.7 L (3.5-5.7) g/dL - ABG Interpretation ABG results: PT/INR, D-dimer PT 12.1 Seconds (9.4-12.1) 04/11/18 11:35 D-Dimer 5840 ng/mLFEU (0-500) H 04/10/18 11:00 - Impressions Impressions Chest X-Ray 04/14/18 10:40 IMPRESSION: Bilateral effusions with bibasilar airspace disease, likely pneumonia. Follow-up to resolution is recommended. D/ / Karly Alford Cha, MD / Karly Alford Cha, MD Interpreting Provider: Karly Alford Cha, MD Chest CT 04/15/18 10:30 IMPRESSION: 1. Moderate to large right pleural effusion and moderate left pleural effusion with adjacent atelectasis and/or pneumonia notable at lung bases. 2. Peribronchial thickening suggestive of peribronchial inflammation. 3. Pulmonary vascular congestion. 4. Noncalcified nodule located in right lower lobe measures 5 mm and nodule located in right upper lobe measures approximately 4 mm. Continued follow-up recommended as clinically indicated based on patient risk factors. 5. Multiple prominent mediastinal lymph nodes. 6. Generalized body wall edema. D/ / Earle Rodriguez / Earle Rodriguez Interpreting Provider: Earle Rodriguez - Attending Attestation I examined this patient and my medical decision-making was reviewed with the Resident Physician. I agree with the documented findings, disposition and treatment plan as described except to the extent set forth below. I evaluated patient in the AM and she denied any complaints at that time. She had no acute events. I re-evaluated patient in afternoon and patient appeared to be in mild discomfort from generalized body pain. Repeat blood cultures from 04/14 prelim is GPC in [address] sets[address] She had a [address] chest ordered to evaluate for septic emboli. This was negative for emboli but did show moderate bilateral pleural effusions and also findings of pneumonia. Zosyn is being added. Pulmonology is consulted. She will need a dose of Lasix as she does appear fluid overloaded as well. ___ <Levar Oneil S - Last Filed: 04/15/18 10:54> (1) Deep venous thrombosis of left upper extremity Qualifiers: Affected thrombotic vein of extremity: brachial Chronicity: acute Qualified Code(s): I82.622 - Acute embolism and thrombosis of deep veins of left upper extremity (2) Sepsis Qualifiers: Sepsis type: sepsis due to unspecified organism Qualified Code(s): A41.9 - Sepsis, unspecified organism (3) Anemia Qualifiers: Anemia type: unspecified type Qualified Code(s): D64.9 - Anemia, unspecified (5) Shoulder subluxation, left Qualifiers: Encounter type: initial encounter Qualified Code(s): S43.002A - Unspecified subluxation of left shoulder joint, initial encounter (7) Type 1 diabetes Qualifiers: Diabetes mellitus complication status: with unspecified complications Qualified Code(s): E10.8 - Type 1 diabetes mellitus with unspecified complications (14) Pneumonia Qualifiers: Pneumonia type: due to unspecified organism Laterality: bilateral Lung location: unspecified part of lung Qualified Code(s): J18.9 - Pneumonia, unspecified organism <Joseph Arciniega - Last Filed: 04/15/18 16:24> (1) Shoulder subluxation, left Qualifiers: Encounter type: initial encounter Qualified Code(s): S43.002A - Unspecified subluxation of left shoulder joint, initial encounter (3) Type 1 diabetes Qualifiers: Diabetes mellitus complication status: with unspecified complications Qualified Code(s): E10.8 - Type 1 diabetes mellitus with unspecified complications (9) Sepsis Qualifiers: Sepsis type: sepsis due to unspecified organism Qualified Code(s): A41.9 - Sepsis, unspecified organism (12) Anemia Qualifiers: Anemia type: unspecified type Qualified Code(s): D64.9 - Anemia, unspecified (13) Deep venous thrombosis of left upper extremity Qualifiers: Affected thrombotic vein of extremity: brachial Chronicity: acute Qualified Code(s): I82.622 - Acute embolism and thrombosis of deep veins of left upper extremity (14) Pneumonia Qualifiers: Pneumonia type: due to unspecified organism Laterality: bilateral Lung location: unspecified part of lung Qualified Code(s): J18.9 - Pneumonia, unspecified organism
[2018-04-15] MEDS: Insulin LISPRO 300 UNITS/3 ML VIAL SQ SCH ×4 (08:58→20:35)
[2018-04-15] MEDS: Multivit/Ca/Min/Fe/FA 1 TAB TABLET PO SCH (09:00)
[2018-04-15] MEDS: traMADol 50 MG TABLET PO SCH (09:01)
[2018-04-15] MEDS: Budesonide/Formoterol 160/4.5 1 PUFF INH IH SCH ×2 (09:37→22:58)
--- NOTE | 2018-04-15 11:59 | Infectious Disease Progress No ---
Date of Encounter: 04/15/18 Time of Encounter: 11:57 - Assessment and Plan (1) Sepsis Current Visit: Yes Status: Resolved The patient had 2 sepsis criteria plus altered mental status. Likely secondary to bacteremia and right knee septic arthritis. Improved. WBC back up a little today. Tachycardia improved. Afebrile overnight. Blood cultures drawn 04/10/18 are +2 out of 2 sets for MRSA. Repeat blood cultures drawn 04/13/18 are positive 2/2 sets. Additional blood cultures drawn 04/14/18 are positive 2/2 sets. Qualifiers: Qualified Code(s): A41.9 - Sepsis, unspecified organism (2) Bacteremia Current Visit: Yes Status: Acute Causative organism: MRSA. Source: Right knee septic arthritis. Blood cultures drawn 04/10/18 are +2 out of 2 sets. Repeat blood cultures drawn 04/13/18 are positive 2/2 sets. Additional cultures drawn 04/14/18 are positive 2/2 sets. Complicated due to the presence of septic arthritis of the right knee and persistent bacteremia. The patient has no indwelling hardware or pacemaker. The patient has one major and one minor Modified [place] criteria. She does not have any endocarditis stigmata noted on exam. Transthoracic echocardiogram negative for vegetations. Get IDALIA prior to discharge. Check rheumatoid factor.--> <10. Continue vancomycin IV. Pharmacy to dose. Goal trough proximally 15. Vanc trough 04/15/18 14. Duration of treatment depends on the clinical picture, but likely 4-6 weeks. Monitor renal function for drug toxicity and dose adjust antibiotics. Continue contact precautions per hospital policy. Avoid insertion of long-term IV access until repeat blood cultures are negative x 48 hours. Further OPAT recommendations to follow pending clinical and culture outcomes. (3) Septic arthritis of knee, right Current Visit: Yes Status: Acute Location: Right knee. Causative organism: MRSA MRI of the right knee showed a moderate joint effusion. The sterility of joint fluid was indeterminate on imaging and an infectious process could not be excluded. Rheumatology consult and following. Status post bedside arthrocentesis that revealed cloudy purulent fluid. Cell count with differential could not be performed due to the viscosity of the specimen. Orthopedics consulted. Status post arthroscopic I & D 04/11/[address] Fournier. Operative note reviewed. Pus noted intra-op. Cultures as above. Continue antibiotics as stated above. Duration of treatment and clinical picture, but likely 4 weeks of IV antibiotics. Monitor renal function for drug toxicity and does just antibiotics. Wound care and activity restrictions per the ortho team. Qualifiers: Qualified Code(s): M00.061 - Staphylococcal arthritis, right knee (4) Pleural effusion Current Visit: Yes Status: Acute Location: Bilateral. CT of the chest showed moderate to large right and moderate left pleural effusion with adjacent atelectasis and/or pneumonia notable at lung bases. Etiology unclear: reactive vs. infectious vs. other. Recommend pulmonary to evaluate. Continue antibiotics as above. (5) Pneumonia Current Visit: Yes Status: Suspected Location: Bilateral bases. Causative organism: Unclear. CXR showed bilateral pleural effusions with bibasilar airspace disease, likely PNA. CT of the chest showed moderte to large right pleural effusion and moderate left pleural effusion with adjacent atelectasis and/or pneumonia notable at lung bases. Recommend pulmonary to evaluate. Check RIP. Check S. pneumo and Legionella UATs. Re-start Zosyn 3.375 grams IV Q8H. Continue Vancomycin IV. Pharmacy to dose. Goal trough ~15. Duration of treatment depends on the clinical picture. Monitor renal function and for drug toxicity and dose-adjust antibiotics. Qualifiers: Qualified Code(s): J18.9 - Pneumonia, unspecified organism (6) Altered mental status Current Visit: Yes Status: Resolved Likely secondary to sepsis. Improved. Continue to monitor closely. Qualifiers: Qualified Code(s): R41.82 - Altered mental status, unspecified (7) Shoulder subluxation, left Current Visit: Yes Status: Acute Noted on imaging. IR consulted and aspiration of the joint unsuccessful. Patient reports pain is improved. Orthopedics consulted. Qualifiers: Qualified Code(s): S43.002A - Unspecified subluxation of left shoulder joint, initial encounter (8) Hyponatremia Current Visit: Yes Status: Acute (9) Calcium pyrophosphate arthropathy Current Visit: Yes Status: Acute Rheumatology consulted and signed off. Plan to follow up as outpatient. (10) Atrial fibrillation with RVR Current Visit: Yes Status: Resolved Liquids secondary to sepsis. Cardiology consulted and signed off. Rate controlled. - Subjective Interval history: Patient seen and examined with family at the bedside. No acute events noted overnight. Patient states overall she feels a little better today. She reports hurting "all over." She states she had some shortness of breath this morning, but denies cough or chest pain. She denies nausea, vomiting, or diarrhea. Denies abdominal pain. Donohue catheter remains patent. States she had Ensure for breakfast. States her mouth is sore. Denies new skin rashes. Infect Dis PN-Objective Data - Labs CBC & Chem 7: 04/15/18 04:14 04/15/18 04:14 Labs: Laboratory Results - last 24 hr 04/14/18 04/14/18 04/14/18 08:00 11:52 12:13 WBC RBC Hgb Hct MCV MCH MCHC RDW Plt Count MPV Immature Gran % Seg Neutrophils % Lymphocytes % Monocytes % Eosinophils % Basophils % Neutrophils # Lymphocytes # Monocytes # Eosinophils # Basophils # ESR Heparin Anti-Xa, Unfract Sodium Potassium Chloride Carbon Dioxide BUN Creatinine Est GFR ( Amer) Est GFR (Non-Af Amer) BUN/Creatinine Ratio Glucose POC Glucose 229 H 263 H Calculated Osmolality Calcium Total Bilirubin AST ALT Alkaline Phosphatase C-Reactive Protein Serum Total Protein Albumin Globulin Albumin/Globulin Ratio Vancomycin Trough Blood Type A POSITIVE Antibody Screen NEGATIVE Crossmatch See Detail 04/14/18 04/14/18 04/14/18 16:26 19:18 19:18 WBC RBC Hgb 9.0 L D Hct 27.2 L MCV MCH MCHC RDW Plt Count MPV Immature Gran % Seg Neutrophils % Lymphocytes % Monocytes % Eosinophils % Basophils % Neutrophils # Lymphocytes # Monocytes # Eosinophils # Basophils # ESR Heparin Anti-Xa, Unfract 0.20 L Sodium Potassium Chloride Carbon Dioxide BUN Creatinine Est GFR ( Amer) Est GFR (Non-Af Amer) BUN/Creatinine Ratio Glucose POC Glucose 325 H Calculated Osmolality Calcium Total Bilirubin AST ALT Alkaline Phosphatase C-Reactive Protein Serum Total Protein Albumin Globulin Albumin/Globulin Ratio Vancomycin Trough Blood Type Antibody Screen Crossmatch 04/14/18 04/15/18 04/15/18 19:51 04:14 04:14 WBC 17.6 H RBC 3.13 L Hgb 9.0 L Hct 27.0 L MCV 86.3 MCH 28.8 MCHC 33.3 RDW 14.2 Plt Count 359 MPV 11.0 Immature Gran % 3.6 Seg Neutrophils % 84.0 Lymphocytes % 9.1 Monocytes % 2.7 Eosinophils % 0.4 Basophils % 0.2 Neutrophils # 14.8 H Lymphocytes # 1.6 Monocytes # 0.5 Eosinophils # 0.1 Basophils # 0.0 ESR Heparin Anti-Xa, Unfract Sodium 133 L Potassium 3.8 Chloride 104 Carbon Dioxide 24 BUN 28 H Creatinine 0.47 L Est GFR ( Amer) > 60 Est GFR (Non-Af Amer) > 60 BUN/Creatinine Ratio 60 H Glucose 256 H POC Glucose 321 H Calculated Osmolality 290 Calcium 7.8 L Total Bilirubin 1.0 AST 18 ALT 14 Alkaline Phosphatase 260 H C-Reactive Protein Serum Total Protein 4.8 L Albumin 1.7 L Globulin 3.1 Albumin/Globulin Ratio 0.5 L Vancomycin Trough Blood Type Antibody Screen Crossmatch 04/15/18 04/15/18 04/15/18 04:14 04:14 04:14 WBC RBC Hgb Hct MCV MCH MCHC RDW Plt Count MPV Immature Gran % Seg Neutrophils % Lymphocytes % Monocytes % Eosinophils % Basophils % Neutrophils # Lymphocytes # Monocytes # Eosinophils # Basophils # ESR 85 H Heparin Anti-Xa, Unfract 0.23 L Sodium Potassium Chloride Carbon Dioxide BUN Creatinine Est GFR ( Amer) Est GFR (Non-Af Amer) BUN/Creatinine Ratio Glucose POC Glucose Calculated Osmolality Calcium Total Bilirubin AST ALT Alkaline Phosphatase C-Reactive Protein 137 H Serum Total Protein Albumin Globulin Albumin/Globulin Ratio Vancomycin Trough Blood Type Antibody Screen Crossmatch 04/15/18 04/15/18 09:17 09:17 WBC RBC Hgb Hct MCV MCH MCHC RDW Plt Count MPV Immature Gran % Seg Neutrophils % Lymphocytes % Monocytes % Eosinophils % Basophils % Neutrophils # Lymphocytes # Monocytes # Eosinophils # Basophils # ESR Heparin Anti-Xa, Unfract 0.18 L Sodium Potassium Chloride Carbon Dioxide BUN Creatinine Est GFR ( Amer) Est GFR (Non-Af Amer) BUN/Creatinine Ratio Glucose POC Glucose Calculated Osmolality Calcium Total Bilirubin AST ALT Alkaline Phosphatase C-Reactive Protein Serum Total Protein Albumin Globulin Albumin/Globulin Ratio Vancomycin Trough 14 H Blood Type Antibody Screen Crossmatch Cultures: Cultures 04/13/18 05:46 Blood Culture - Final Peripheral Venipuncture Methicillin Resistant S.aureus 04/13/18 05:34 Blood Culture - Preliminary Peripheral Venipuncture Gram Positive Cocci - Clusters 04/14/18 04:20 Blood Culture - Preliminary Peripheral Venipuncture Gram Positive Cocci 04/14/18 04:20 Blood Culture - Preliminary Peripheral Venipuncture Gram Positive Cocci 04/11/18 18:25 Anaerobic Culture - Preliminary Right Knee At this time, no anaerobic growth is present. The culture will be finalized after 5 days of incubation. 04/11/18 18:25 Wound Culture - Final Right Knee Methicillin Resistant S.aureus 04/10/18 11:00 Blood Culture - Final Peripheral Venipuncture Methicillin Resistant S.aureus 04/10/18 11:10 Blood Culture - Final Peripheral Venipuncture Methicillin Resistant S.aureus 04/09/18 12:30 Body Fluid Culture - Final Synovial Fluid Methicillin Resistant S.aureus Serology 04/13/18 04/10/18 04/10/18 Range/Units 05:46 16:41 16:41 Ur Specimen Adequacy Urine Color (Yellow) Urine Clarity (Clear) Urine pH (5.0-8.0) pH Units Ur Specific Molena (1.010-1.025) Urine Protein (Neg-Trace) mg/dL Urine Glucose (UA) (Normal) mg/dL Urine Ketones (Negative) mg/dL Urine Blood (Negative) Urine Nitrite (Negative) Urine Bilirubin (Negative) Urine Urobilinogen (Normal) mg/dL Ur Leukocyte Esterase (Negative) Urine Microscopic RBC (0-3) per hpf Urine Microscopic WBC (0-3) per hpf Ur Squamous Epith Cells (None-Few) per lpf Urine Bacteria (None-Few) per hpf Hyaline Casts Ur Culture Indicated? (NO) Urine Osmolality 407 (300-1090) mOsm/kg Urine Sodium 21.3 mEq/L Fluid Crystals (None Seen) Synovial Source Synovial Color (Straw) Synovial Appearance (Clear-Hazy) Synovial Volume mL Synovial RBC Synovial Tot Nuc Cell Synovial Band Neuts Synovial Basophils Synovial Eosinophils Synovial Seg Neuts % % Synovial Lymphocytes % % Synovial Monocytes % % Synovial Other Cells % A. baumannii (PCR) Not Detected (Not Detect) Kirti albicans (PCR) Not Detected (Not Detect) C. glabrata (PCR) Not Detected (Not Detect) C. krusei (PCR) Not Detected (Not Detect) C. parapsilosis (PCR) Not Detected (Not Detect) C. tropicalis (PCR) Not Detected (Not Detect) Enterobacteriac sp PCR Not Detected (Not Detect) E. cloacae complex PCR Not Detected (Not Detect) Enterococcus sp PCR Not Detected (Not Detect) E. coli (PCR) Not Detected (Not Detect) H. influenzae (PCR) Not Detected (Not Detect) Klebsiella oxytoca PCR Not Detected (Not Detect) Klebsiella pneumoniae Not Detected (Not Detect) List. monocytogenes PCR Not Detected (Not Detect) N. meningitidis (PCR) Not Detected (Not Detect) Proteus species (PCR) Not Detected (Not Detect) Serratia marcescens PCR Not Detected (Not Detect) Staphylococcus sp PCR DETECTED A (Not Detect) Staph aureus (PCR) DETECTED A (Not Detect) mecA-Methicil Res Gene DETECTED A (Not Detect) Streptococcus sp PCR Not Detected (Not Detect) Group A Strep DNA Not Detected (Not Detect) Group B Strep (PCR) Not Detected (Not Detect) Strep pneumoniae (PCR) Not Detected (Not Detect) P. aeruginosa (PCR) Not Detected (Not Detect) Ivory/B-Vanco Res Genes N/A (Not Detect) KPC (blaKPC) Detect PCR N/A (Not Detect) 04/10/18 04/09/18 04/09/18 Range/Units 11:10 12:30 12:30 Ur Specimen Adequacy Urine Color (Yellow) Urine Clarity (Clear) Urine pH (5.0-8.0) pH Units Ur Specific Molena (1.010-1.025) Urine Protein (Neg-Trace) mg/dL Urine Glucose (UA) (Normal) mg/dL Urine Ketones (Negative) mg/dL Urine Blood (Negative) Urine Nitrite (Negative) Urine Bilirubin (Negative) Urine Urobilinogen (Normal) mg/dL Ur Leukocyte Esterase (Negative) Urine Microscopic RBC (0-3) per hpf Urine Microscopic WBC (0-3) per hpf Ur Squamous Epith Cells (None-Few) per lpf Urine Bacteria (None-Few) per hpf Hyaline Casts Ur Culture Indicated? (NO) Urine Osmolality (300-1090) mOsm/kg Urine Sodium mEq/L Fluid Crystals CPPD Crystals Seen A (None Seen) Synovial Source RIGHT KNEE Synovial Color Straw (Straw) Synovial Appearance Cloudy A (Clear-Hazy) Synovial Volume 8.0 mL Synovial RBC TNP Synovial Tot Nuc Cell TNP Synovial Band Neuts Test Not Performed Synovial Basophils Test Not Performed Synovial Eosinophils Test Not Performed Synovial Seg Neuts % 2.0 % Synovial Lymphocytes % 84.0 % Synovial Monocytes % 14.0 % Synovial Other Cells % Test Not Performed A. baumannii (PCR) Not Detected (Not Detect) Kirti albicans (PCR) Not Detected (Not Detect) C. glabrata (PCR) Not Detected (Not Detect) C. krusei (PCR) Not Detected (Not Detect) C. parapsilosis (PCR) Not Detected (Not Detect) C. tropicalis (PCR) Not Detected (Not Detect) Enterobacteriac sp PCR Not Detected (Not Detect) E. cloacae complex PCR Not Detected (Not Detect) Enterococcus sp PCR Not Detected (Not Detect) E. coli (PCR) Not Detected (Not Detect) H. influenzae (PCR) Not Detected (Not Detect) Klebsiella oxytoca PCR Not Detected (Not Detect) Klebsiella pneumoniae Not Detected (Not Detect) List. monocytogenes PCR Not Detected (Not Detect) N. meningitidis (PCR) Not Detected (Not Detect) Proteus species (PCR) Not Detected (Not Detect) Serratia marcescens PCR Not Detected (Not Detect) Staphylococcus sp PCR DETECTED A (Not Detect) Staph aureus (PCR) DETECTED A (Not Detect) mecA-Methicil Res Gene DETECTED A (Not Detect) Streptococcus sp PCR Not Detected (Not Detect) Group A Strep DNA Not Detected (Not Detect) Group B Strep (PCR) Not Detected (Not Detect) Strep pneumoniae (PCR) Not Detected (Not Detect) P. aeruginosa (PCR) Not Detected (Not Detect) Ivory/B-Vanco Res Genes N/A (Not Detect) KPC (blaKPC) Detect PCR N/A (Not Detect) 04/06/18 Range/Units 11:55 Ur Specimen Adequacy See below A Urine Color Yellow (Yellow) Urine Clarity Clear (Clear) Urine pH 5.5 (5.0-8.0) pH Units Ur Specific [place]ena 1.014 (1.010-1.025) Urine Protein 30 H (Neg-Trace) mg/dL Urine Glucose (UA) 250 H (Normal) mg/dL Urine Ketones Negative (Negative) mg/dL Urine Blood Small H (Negative) Urine Nitrite Negative (Negative) Urine Bilirubin Negative (Negative) Urine Urobilinogen Normal (Normal) mg/dL Ur Leukocyte Esterase Negative (Negative) Urine Microscopic RBC 5-15 H (0-3) per hpf Urine Microscopic WBC 0-3 (0-3) per hpf Ur Squamous Epith Cells Many H (None-Few) per lpf Urine Bacteria None Seen (None-Few) per hpf Hyaline Casts Test Not Performed Ur Culture Indicated? NO (NO) Urine Osmolality (300-1090) mOsm/kg Urine Sodium mEq/L Fluid Crystals (None Seen) Synovial Source Synovial Color (Straw) Synovial Appearance (Clear-Hazy) Synovial Volume mL Synovial RBC Synovial Tot Nuc Cell Synovial Band Neuts Synovial Basophils Synovial Eosinophils Synovial Seg Neuts % % Synovial Lymphocytes % % Synovial Monocytes % % Synovial Other Cells % A. baumannii (PCR) (Not Detect) Kirti albicans (PCR) (Not Detect) C. glabrata (PCR) (Not Detect) C. krusei (PCR) (Not Detect) C. parapsilosis (PCR) (Not Detect) C. tropicalis (PCR) (Not Detect) Enterobacteriac sp PCR (Not Detect) E. cloacae complex PCR (Not Detect) Enterococcus sp PCR (Not Detect) E. coli (PCR) (Not Detect) H. influenzae (PCR) (Not Detect) Klebsiella oxytoca PCR (Not Detect) Klebsiella pneumoniae (Not Detect) List. monocytogenes PCR (Not Detect) N. meningitidis (PCR) (Not Detect) Proteus species (PCR) (Not Detect) Serratia marcescens PCR (Not Detect) Staphylococcus sp PCR (Not Detect) Staph aureus (PCR) (Not Detect) mecA-Methicil Res Gene (Not Detect) Streptococcus sp PCR (Not Detect) Group A Strep DNA (Not Detect) Group B Strep (PCR) (Not Detect) Strep pneumoniae (PCR) (Not Detect) P. aeruginosa (PCR) (Not Detect) Ivory/B-Vanco Res Genes (Not Detect) KPC (blaKPC) Detect PCR (Not Detect) - Impressions Impressions Chest X-Ray 04/14/18 10:40 IMPRESSION: Bilateral effusions with bibasilar airspace disease, likely pneumonia. Follow-up to resolution is recommended. D/ / Karly Alford Cha, MD / Karly Alford Cha, MD Interpreting Provider: Karly Alford Cha, MD Chest CT 04/15/18 10:30 IMPRESSION: 1. Moderate to large right pleural effusion and moderate left pleural effusion with adjacent atelectasis and/or pneumonia notable at lung bases. 2. Peribronchial thickening suggestive of peribronchial inflammation. 3. Pulmonary vascular congestion. 4. Noncalcified nodule located in right lower lobe measures 5 mm and nodule located in right upper lobe measures approximately 4 mm. Continued follow-up recommended as clinically indicated based on patient risk factors. 5. Multiple prominent mediastinal lymph nodes. 6. Generalized body wall edema. D/ / Earle Rodriguez / Earle Rodriguez Interpreting Provider: Earle Rodriguez Exam - Constitutional Vitals: Temp Pulse Resp BP Pulse Ox 98.8 F 97 18 131/72 100 04/15/18 11:15 04/15/18 11:15 04/15/18 11:15 04/15/18 11:15 04/15/18 11:15 General appearance: average body habitus, cooperative, no acute distress - Head Head exam: Present: atraumatic, normal inspection, normocephalic - Eye Eye exam: Present: EOMI, normal appearance, PERRL Pupils: Present: normal accommodation Additional comments: No subconjunctival hemorrhage noted. - ENT ENT exam: Present: mucous membranes moist Additional comments: Oral thrush noted. - Neck Neck exam: Present: normal inspection - Respiratory Respiratory exam: Present: CTAB. Absent: rales, respiratory distress, rhonchi, wheezes - Cardiovascular Cardiovascular exam: Present: RRR, +S1, +S2 - GI/Abdominal GI/Abdominal exam: Present: normal bowel sounds, soft. Absent: distended, tenderness Additional comments: Donohue catheter remains patent draining clear yellow urine. - Extremities Exam Extremities exam: Present: normal inspection, pedal edema (1+ BLE), tenderness (Mild, right knee). Absent: joint swelling Additional comments: Right knee surgical sites with steri-strips and sutures intact. No erythema or warmth noted. - Neurological Exam Neurological exam: Present: alert, oriented X3, no focal deficits - Psychiatric Psychiatric exam: Present: normal affect, normal mood - Skin Skin exam: Present: dry, intact, normal color, warm Additional comments: No endocarditis stigmata noted. Consult Discharge Plan - Plan Referrals: Misael Lopez MD [Non-Partnered Physician] - (Patient is going to rehab no PCP appointment needed) - Attending Attestation I examined this patient and my medical decision-making was reviewed with the Resident Physician. I agree with the documented findings, disposition and treatment plan as described except to the extent set forth below.
[2018-04-15] MEDS: Nystatin SUSP 5 ML UD.LIQ PO SCH ×3 (12:00→20:34)
[2018-04-15] MEDS ORDERED: Furosemide 20 MG/2 ML VIAL IVP ONE (14:38)
[2018-04-15] MEDS: Piperacillin/Tazobactam 3.375 GM in 0.9 % Sodium Chloride Mini Bag 100 ML IVPB SCH (15:10)
--- NOTE | 2018-04-15 17:06 | Pulmonology Consult Note ---
<Paul Montenegro W - Last Filed: 04/15/18 17:20> Medications and Allergies Albuterol Sulfate [Ventolin Hfa] 2 puff IH Q4H PRN 04/06/18 [History] Budesonide/Formoterol 160/4.5 [Symbicort 160/4.5] 2 puff PO BID 04/06/18 [History] Esomeprazole Magnesium [Nexium] 40 mg PO DAILY 04/06/18 [History] Insulin ASPART [NovoLOG] 0 unit SQ AD 04/06/18 [History] Lisinopril/Hydrochlorothiazide [Zestoretic 20-25 mg Tablet] 1 tab PO DAILY 04/06/18 [History] Meloxicam 15 mg PO DAILY 04/06/18 [History] Methyl Salicylate/Menthol [Salonpas Patch] 1 patch TP DAILY PRN MDD N 04/06/18 [History] Montelukast [Singulair] 10 mg PO DAILY 04/06/18 [History] Multivitamin [One Daily Essential] 1 tab PO DAILY 04/06/18 [History] Tramadol HCl [Ultram] 50 mg PO DAILY 04/06/18 [History] predniSONE [PredniSONE] 60 mg PO DAILY 04/06/18 [History] Allergy/AdvReac Type Severity Reaction Status Date / Time No Known Allergies Allergy Verified 04/06/18 10:17 All Systems: The remainder of the systems were reviewed and are negative Physical Examination Vital Signs: Vital Signs, Last 4 Hours Temp Pulse Resp BP Pulse Ox 04/15/18 16:30 99.2 F 104 18 122/65 100 04/15/18 14:09 94 Results - Laboratory Findings CBC and BMP: 04/15/18 04:14 04/15/18 04:14 PT/INR, D-dimer PT 12.1 Seconds (9.4-12.1) 04/11/18 11:35 D-Dimer 5840 ng/mLFEU (0-500) H 04/10/18 11:00 Abnormal lab findings: Abnormal lab results WBC 17.6 K/mcL (4.3-11.1) H 04/15/18 04:14 RBC 3.13 M/mcL (3.82-4.97) L 04/15/18 04:14 Hgb 9.0 g/dL (11.5-15.4) L 04/15/18 04:14 Hct 27.0 % (35.3-44.9) L 04/15/18 04:14 Band Neutrophils % 6.0 % (0-4) H 04/13/18 05:34 Neutrophils # 14.8 K/mcL (1.6-8.9) H 04/15/18 04:14 Toxic Granulation Present (Not Present) A 04/12/18 16:20 Large Platelets Present (Not Present) A 04/13/18 05:34 Immature Plt Fraction 13.2 % (1.1-6.1) H 04/10/18 03:56 Anisocytosis 1+ (Not Present) A 04/13/18 05:34 ESR 85 mm/hr (0-15) H 04/15/18 04:14 D-Dimer 5840 ng/mLFEU (0-500) H 04/10/18 11:00 Heparin Anti-Xa, Unfract 0.18 IU/mL (0.30-0.70) L 04/15/18 09:17 VBG pCO2 33 mmHg (41-51) L 04/06/18 10:45 VBG pO2 84 mmHg (25-50) H 04/06/18 10:45 Sodium 133 mEq/L (136-145) L 04/15/18 04:14 BUN 28 mg/dL (8-23) H 04/15/18 04:14 Creatinine 0.47 mg/dL (0.60-1.20) L 04/15/18 04:14 BUN/Creatinine Ratio 60 (6-26) H 04/15/18 04:14 Glucose 256 mg/dL (70-105) H 04/15/18 04:14 POC Glucose 321 mg/dL (70-99) H 04/14/18 19:51 Hemoglobin A1c 7.8 % (-5.6) H 04/06/18 10:31 Calcium 7.8 mg/dL (8.6-10.3) L 04/15/18 04:14 Phosphorus 2.5 mg/dL (2.7-4.5) L 04/07/18 03:31 Alkaline Phosphatase 260 Units/L (34-104) H 04/15/18 04:14 Creatine Kinase 22 Units/L (30-223) L 04/06/18 13:46 C-Reactive Protein 137 mg/L (Less than 10) H 04/15/18 04:14 Serum Total Protein 4.8 g/dL (6.4-8.9) L 04/15/18 04:14 Albumin 1.7 g/dL (3.5-5.7) L 04/15/18 04:14 Albumin/Globulin Ratio 0.5 (1.1-2.2) L 04/15/18 04:14 TSH 0.248 mcIU/mL (0.340-5.600) L 04/06/18 10:31 Ur Specimen Adequacy See below A 04/06/18 11:55 Urine Protein 30 mg/dL (Neg-Trace) H 04/06/18 11:55 Urine Glucose (UA) 250 mg/dL (Normal) H 04/06/18 11:55 Urine Blood Small (Negative) H 04/06/18 11:55 Urine Microscopic RBC 5-15 per hpf (0-3) H 04/06/18 11:55 Ur Squamous Epith Cells Many per lpf (None-Few) H 04/06/18 11:55 Fluid Crystals CPPD Crystals Seen (None Seen) A 04/09/18 12:30 Synovial Appearance Cloudy (Clear-Hazy) A 04/09/18 12:30 Vancomycin Trough 14 mcg/mL (5-10) H 04/15/18 09:17 Urine Opiates Screen Positive ng/mL (Bhxitj=115) H 04/06/18 11:54 Staphylococcus sp PCR DETECTED (Not Detect) A 04/13/18 05:46 Staph aureus (PCR) DETECTED (Not Detect) A 04/13/18 05:46 mecA-Methicil Res Gene DETECTED (Not Detect) A 04/13/18 05:46 - Microbiology Findings Microbiology Findings: Microbiology, Last 48 Hours 04/13/18 05:46 Blood Culture - Final Peripheral Venipuncture Methicillin Resistant S.aureus 04/13/18 05:34 Blood Culture - Preliminary Peripheral Venipuncture Gram Positive Cocci - Clusters 04/14/18 04:20 Blood Culture - Preliminary Peripheral Venipuncture Gram Positive Cocci 04/14/18 04:20 Blood Culture - Preliminary Peripheral Venipuncture Gram Positive Cocci 04/11/18 18:25 Anaerobic Culture - Preliminary Right Knee At this time, no anaerobic growth is present. The culture will be finalized after 5 days of incubation. 04/11/18 18:25 Wound Culture - Final Right Knee Methicillin Resistant S.aureus - Clinical Findings Intake & Output: Intake & Output 04/15/18 04/15/18 04/15/18 07:59 15:59 23:59 Intake Total 160 / 160 340 / 340 Output Total 350 / 350 400 / 400 1000 / 1000 Balance -190 / -190 -60 / -60 -1000 / -1000 Weight 78.5 kg Consult Discharge Plan - Plan Referrals: Misael Lopez MD [Non-Partnered Physician] - (Patient is going to rehab no PCP appointment needed) - Attending Attestation I examined this patient and my medical decision-making was reviewed with the Resident Physician. I agree with the documented findings, disposition and treatment plan as described except to the extent set forth below. We nasrin batres had [id number] contact with the patient Patient seen and examined at bedside Labs, radiology, chart personally reviewed. Impression/Recs: Pleural effusion Acute respiratory failure (hypoxia) Atrial fibrillation with RVR MRSA bacteremia I suspect that the bilateral pleural effusions are hydrostatic pulmonary edema secondary to atrial fibrillation acutely with use of continuous crystalloid infusion now on hold. I agree with the gentle diuresis as tolerated very patient comfortable no immediate need for thoracentesis at this time. I did give her the option of getting this scheduled which I think would have to be done for technical reasons with interventional radiology (as the patient cannot sit up for extended period of time) after holding heparin and she wants to wait at this time as she says that her breathing is not particularly labored. I do not think that this represents bilateral pneumonia with parapneumonic (infected) effusions we will follow closely with this however if there is any signs of clinical deterioration from an infection standpoint the urgency to sample these pleural effusions would be increased. We will defer to management of her atrial fibrillation to the primary cardiology service and antimicrobials to the infectious disease service. Thank you for the consultation pulmonary will continue to follow <Leyla Byers - Last Filed: 04/15/18 20:24> Date of Encounter: 04/15/18 Time of Encounter: 15:30 Assessment and Plan (1) Pleural effusion Current Visit: Yes Status: Acute CXR 04/14: bilateral effusions with bibasilar airspace disease Chest CT 04/15: pleural effusions were again identified with adjacent atelectasis; pulmonary vascular congestion also noted Doubt infectious origin such as infected paraneumonic effusions Etiology likely related to the Afib with RVR she developed during this admission compounded by continuous IV fluids--fluids now on hold Patient feels her breathing has improved, SpO2 100% Discussed options and their accompanying risks/benefits of diuresis versus thoracentesis--at this time, patient and family prefer diuresis If patient clinically deteriorates or respiratory status declines, we will reconsider thoracentesis (2) Bacteremia Current Visit: Yes Status: Acute Causative organism MRSA Likely d/t right knee septic arthritis Blood cultures 04/10: MRSA positive Repeat blood cultures continue to show growth Antibiotic therapy as per infectious disease (3) Atrial fibrillation with RVR Current Visit: Yes Status: Resolved As above New onset of Afib with RVR most likely related to her septic joint and bacteremia Management as per cardiology History of Present Illness Consult date: 04/15/18 Requesting physician: Levar Oneil Reason for consult: pleural effusion History of present illness: Ms. Mckeon is a 77 year old female with PMH of diabetes, hypertension, and arthritis who was admitted after presenting to the ED with excruciating right knee pain. She was found to have bacteremia and septic arthritis of the right knee. Right knee has since been washed out in the OR and she has been receiving IV vancomycin--zosyn was added today. CT chest ordered by primary team to rule out septic emboli. Results of CT chest showed bilateral pleural effusions with adjacent atelectasis "and/or pneumonia" as read by radiology. Pulmonology service consulted for recommendations regarding these pleural effusions. Patient was seen and examined at bedside. Her son and her sister are also present in the room and provide some assistance in history taking. Patient feels her breathing has improved since yesterday, she admits to non-productive cough. At baseline she reports some mild COREAS. Other than asthma in her youth, she denies personal history of lung related issues. She has never smoked tobacco, she has smoked marijuana in the past but states she hasn't done so in 34 years. 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 She remote history of hospitalization for asthma; she has not been hospitalized for asthma, pneumonia, or other respiratory illness since then. Past Med Surg Social Fam HX - Past Medical History Medical history: arthritis, asthma, diabetes, hypertension Psychiatric history: no psych history - Past Surgical History Additional surgical history: skin cancer removed - Social History Smoking Status: Never smoker Smokeless Tobacco Status: No Alcohol use: none Drug use: none - Family History Mother Living Status: Age at : 93 Cause of : failure to thrive Father Living Status: Age at : 94 Cause of : failure to thrive All Systems: The remainder of the systems were reviewed and are negative - Cardiovascular Cardiovascular: as per HPI, no leg edema - Respiratory Respiratory: as per HPI - Musculoskeletal Musculoskeletal: joint pain (right knee) - Neurological Neurological: confusion Physical Examination Vital Signs: Vital Signs, Last 4 Hours Temp Pulse Resp BP Pulse Ox 04/15/18 16:30 99.2 F 104 18 122/65 100 04/15/18 14:09 94 General appearance: no acute distress, other (somnolent) Eyes: nonicteric ENT: oropharynx dry Neck: supple Effort: normal Inspection: normal Auscultation: bilateral: diminished breath sounds (basilar) Cardiovascular: other (tachycardia, regular rhythm) Gastrointestinal: normoactive bowel sounds, soft, non-tender, non-distended Integumentary: normal Extremities: pink and warm, pulses normal, other (no pedal edema) non-focal exam, pupils equal and round, other (answers questions appropriately, mentation intact) mood appropriate, affect normal Results - Laboratory Findings CBC and BMP: 04/15/18 04:14 04/15/18 04:14 PT/INR, D-dimer PT 12.1 Seconds (9.4-12.1) 04/11/18 11:35 D-Dimer 5840 ng/mLFEU (0-500) H 04/10/18 11:00 Abnormal lab findings: Abnormal lab results WBC 17.6 K/mcL (4.3-11.1) H 04/15/18 04:14 RBC 3.13 M/mcL (3.82-4.97) L 04/15/18 04:14 Hgb 9.0 g/dL (11.5-15.4) L 04/15/18 04:14 Hct 27.0 % (35.3-44.9) L 04/15/18 04:14 Band Neutrophils % 6.0 % (0-4) H 04/13/18 05:34 Neutrophils # 14.8 K/mcL (1.6-8.9) H 04/15/18 04:14 Toxic Granulation Present (Not Present) A 04/12/18 16:20 Large Platelets Present (Not Present) A 04/13/18 05:34 Immature Plt Fraction 13.2 % (1.1-6.1) H 04/10/18 03:56 Anisocytosis 1+ (Not Present) A 04/13/18 05:34 ESR 85 mm/hr (0-15) H 04/15/18 04:14 D-Dimer 5840 ng/mLFEU (0-500) H 04/10/18 11:00 Heparin Anti-Xa, Unfract 0.18 IU/mL (0.30-0.70) L 04/15/18 09:17 VBG pCO2 33 mmHg (41-51) L 04/06/18 10:45 VBG pO2 84 mmHg (25-50) H 04/06/18 10:45 Sodium 133 mEq/L (136-145) L 04/15/18 04:14 BUN 28 mg/dL (8-23) H 04/15/18 04:14 Creatinine 0.47 mg/dL (0.60-1.20) L 04/15/18 04:14 BUN/Creatinine Ratio 60 (6-26) H 04/15/18 04:14 Glucose 256 mg/dL (70-105) H 04/15/18 04:14 POC Glucose 321 mg/dL (70-99) H 04/14/18 19:51 Hemoglobin A1c 7.8 % (-5.6) H 04/06/18 10:31 Calcium 7.8 mg/dL (8.6-10.3) L 04/15/18 04:14 Phosphorus 2.5 mg/dL (2.7-4.5) L 04/07/18 03:31 Alkaline Phosphatase 260 Units/L (34-104) H 04/15/18 04:14 Creatine Kinase 22 Units/L (30-223) L 04/06/18 13:46 C-Reactive Protein 137 mg/L (Less than 10) H 04/15/18 04:14 Serum Total Protein 4.8 g/dL (6.4-8.9) L 04/15/18 04:14 Albumin 1.7 g/dL (3.5-5.7) L 04/15/18 04:14 Albumin/Globulin Ratio 0.5 (1.1-2.2) L 04/15/18 04:14 TSH 0.248 mcIU/mL (0.340-5.600) L 04/06/18 10:31 Ur Specimen Adequacy See below A 04/06/18 11:55 Urine Protein 30 mg/dL (Neg-Trace) H 04/06/18 11:55 Urine Glucose (UA) 250 mg/dL (Normal) H 04/06/18 11:55 Urine Blood Small (Negative) H 04/06/18 11:55 Urine Microscopic RBC 5-15 per hpf (0-3) H 04/06/18 11:55 Ur Squamous Epith Cells Many per lpf (None-Few) H 04/06/18 11:55 Fluid Crystals CPPD Crystals Seen (None Seen) A 04/09/18 12:30 Synovial Appearance Cloudy (Clear-Hazy) A 04/09/18 12:30 Vancomycin Trough 14 mcg/mL (5-10) H 04/15/18 09:17 Urine Opiates Screen Positive ng/mL (Ryefvw=583) H 04/06/18 11:54 Staphylococcus sp PCR DETECTED (Not Detect) A 04/13/18 05:46 Staph aureus (PCR) DETECTED (Not Detect) A 04/13/18 05:46 mecA-Methicil Res Gene DETECTED (Not Detect) A 04/13/18 05:46 - Microbiology Findings Microbiology Findings: Microbiology, Last 48 Hours 04/13/18 05:46 Blood Culture - Final Peripheral Venipuncture Methicillin Resistant S.aureus 04/13/18 05:34 Blood Culture - Preliminary Peripheral Venipuncture Gram Positive Cocci - Clusters 04/14/18 04:20 Blood Culture - Preliminary Peripheral Venipuncture Gram Positive Cocci 04/14/18 04:20 Blood Culture - Preliminary Peripheral Venipuncture Gram Positive Cocci 04/11/18 18:25 Anaerobic Culture - Preliminary Right Knee At this time, no anaerobic growth is present. The culture will be finalized after 5 days of incubation. 04/11/18 18:25 Wound Culture - Final Right Knee Methicillin Resistant S.aureus - Clinical Findings Intake & Output: Intake & Output 04/15/18 04/15/18 04/15/18 07:59 15:59 23:59 Intake Total 160 / 160 340 / 340 Output Total 350 / 350 400 / 400 1000 / 1000 Balance -190 / -190 -60 / -60 -1000 / -1000 Weight 78.5 kg
[2018-04-15 17:16] LABS: Adenovirus Not Detected (Not Detect); Bordetella Pertussis Not Detected (Not Detect); Coronavirus 229E Not Detected (Not Detect); Coronavirus HKU1 Not Detected (Not Detect); Coronavirus NL63 Not Detected (Not Detect); Coronavirus OC43 Not Detected (Not Detect); Human Metapneumovirus Not Detected (Not Detect); Human Rhinovirus/Enterovirus Not Detected (Not Detect); Influenza A Subtype 2009 H1 Not Detected (Not Detect); Influenza A Untypeable Not Detected (Not Detect); Influenza B Not Detected (Not Detect); Parainfluenza Virus 1 Not Detected (Not Detect); Parainfluenza Virus 2 Not Detected (Not Detect); Parainfluenza Virus 3 Not Detected (Not Detect); Parainfluenza Virus 4 Not Detected (Not Detect); Respiratory Syncytial Virus Not Detected (Not Detect)
[2018-04-15 17:17] LABS: Chlamydophila pneumoniae Not Detected (Not Detect); Mycoplasma pneumoniae Not Detected (Not Detect)
--- NOTE | 2018-04-15 17:42 | Orthopedics Progress Note ---
Date of Encounter: 04/15/18 Time of Encounter: 17:37 - Assessment and Plan (1) Septic arthritis of knee, right Current Visit: Yes Status: Acute POD#4 - Right Knee I&D Assessment and plan: Continue with postoperative care Doppler STAT of RLE -r/o DVT May consider IR aspiration of LEFT knee in AM if symptoms persist Continue IV antibiotics per IDs recommendation ESR/CRP needed Left Shoulder: Recommend MRI outpatient as needed, IR aspiration - no fluid obtained; Continue with gentle hand and wrist ROM to improve swelling 04/14 - Left upper extremity venous duplex appears to be positive for at acute DVT in the left brachial and radial veins. F/up appt set and faxed to floor. Recommend Rheum re-eval to assess edema if diuresis does not improve Qualifiers: Septic arthritis organism: staphylococcal Qualified Code(s): M00.061 - Staphylococcal arthritis, right knee (2) Bacteremia Current Visit: Yes Status: Acute (3) Shoulder subluxation, left Current Visit: Yes Status: Acute Qualifiers: Encounter type: initial encounter Qualified Code(s): S43.002A - Unspecified subluxation of left shoulder joint, initial encounter (4) Arthritis of right knee Current Visit: Yes Status: Acute Subjective Principal diagnosis: left shoulder pain, right knee pain, sepsis Interval history: Patient was seen this morning, POD#4 Right Knee Arthoscopic I&D 04/11/18 Patient reporting improvement with general malaise, DX with bilateral pleural effusions today, with pulm consulted - bilateral pleural effusions are hydrostatic pulmonary edema secondary to atrial fibrillation acutely with use of continuous crystalloid infusion now on hold. Plan to continue gentle diuresis as tolerated very patient comfortable no immediate need for thoracentesis at this time. Reports multi-joint pain and ache continues, in particularly with her LEFT knee. No increased pain to Right knee. She has not been able to complete PTOT secondary to medical concerns. +Calf tenderness Noted fever improved, but 99 this PM Vital Signs Temp Pulse Resp BP Pulse Ox 04/15/18 16:30 99.2 F 104 18 122/65 100 04/15/18 14:09 94 04/15/18 11:15 98.8 F 97 18 131/72 100 04/15/18 09:37 18 100 04/15/18 09:30 88 04/15/18 07:40 98.1 F 91 18 120/68 100 04/15/18 04:23 97.9 F 77 18 110/68 100 04/15/18 04:00 97.9 F 85 18 110/68 100 04/15/18 01:41 98.9 F 04/15/18 01:11 111 04/14/18 23:28 100.1 F H 18 120/76 04/14/18 20:55 16 100 04/14/18 20:30 97 04/14/18 20:27 98.5 F 101 18 105/69 100 04/14/18 20:12 98.5 F 101 18 116/66 100 04/14/18 19:56 98.5 F 103 18 116/66 100 04/14/18 18:15 100 F H 101 20 111/77 04/14/18 18:00 101 20 100 Intake and Output 04/15/18 04/15/18 04/15/18 07:59 15:59 23:59 Intake Total 160 / 160 340 / 340 Output Total 350 / 350 400 / 400 1000 / 1000 Balance -190 / -190 -60 / -60 -1000 / -1000 Intake: IV Fluids 160 / 160 340 / 340 Heparin 25,000 UNIT/500 ML D5W 160 / 160 340 / 340 25,000 unit In 500 ml @ 14 UNIT /KG/HR 18.676 mls/hr IVC .Q24H [facility] Rx#:[id number] Output: Catheter 350 / 350 400 / 400 1000 / 1000 Other: Weight 78.5 kg Blood Glucose* 206 250 214 Patient Weight 04/15/18 23:59 Weight 78.5 kg WBC increased. Short CBC 04/15/18 04/14/18 Range/Units 04:14 19:18 WBC 17.6 H (4.3-11.1) K/mcL Hgb 9.0 L 9.0 L D (11.5-15.4) g/dL Hct 27.0 L 27.2 L (35.3-44.9) % Plt Count 359 (140-400) K/mcL Neutrophils # 14.8 H (1.6-8.9) K/mcL BMP 04/15/18 Range/Units 04:14 Sodium 133 L (136-145) mEq/L Potassium 3.8 (3.5-5.1) mEq/L Chloride 104 (98-107) mEq/L Carbon Dioxide 24 (23-29) mEq/L BUN 28 H (8-23) mg/dL Creatinine 0.47 L (0.60-1.20) mg/dL Glucose 256 H (70-105) mg/dL Calcium 7.8 L (8.6-10.3) mg/dL Liver Function 04/15/18 Range/Units 04:14 Total Bilirubin 1.0 (0.3-1.0) mg/dL AST 18 (13-39) Units/L ALT 14 (7-52) Units/L Alkaline Phosphatase 260 H (34-104) Units/L Albumin 1.7 L (3.5-5.7) g/dL Operative extremity: Sutures intact, steri-strips in place. C/D/I. Mild Effusion noted, no erythema, no drainage. +Calf tenderness NV intact distally Left knee: Moderate effusion noted No erythema, abrasions or obvious deformity Painful with PROM and limited AROM seconedary to fluid overload and pain NV intact distally Left Shoulder: 04/14 - Left upper extremity venous duplex appears to be positive for at acute DVT in the left brachial and radial veins. No effusion, swelling noted into arm and lower arm Shoulder ROM - unable to complete due to pain NV intact Finger swelling and stiffness noted Assessment and plan: Continue with postoperative care Doppler STAT of RLE -r/o DVT May consider IR aspiration of LEFT knee in AM if symptoms persist Continue IV antibiotics per IDs recommendation ESR/CRP needed Left Shoulder: Recommend MRI outpatient as needed, IR aspiration - no fluid obtained; Continue with gentle hand and wrist ROM to improve swelling 04/14 - Left upper extremity venous duplex appears to be positive for at acute DVT in the left brachial and radial veins. F/up appt set and faxed to floor. Recommend Rheum re-eval to assess edema if diuresis does not improve Objective Vital signs: Vital Signs Temp Pulse Resp BP Pulse Ox 04/15/18 16:30 99.2 F 104 18 122/65 100 04/15/18 14:09 94 04/15/18 11:15 98.8 F 97 18 131/72 100 04/15/18 09:37 18 100 04/15/18 09:30 88 04/15/18 07:40 98.1 F 91 18 120/68 100 04/15/18 04:23 97.9 F 77 18 110/68 100 04/15/18 04:00 97.9 F 85 18 110/68 100 04/15/18 01:41 98.9 F 04/15/18 01:11 111 04/14/18 23:28 100.1 F H 18 120/76 04/14/18 20:55 16 100 04/14/18 20:30 97 04/14/18 20:27 98.5 F 101 18 105/69 100 04/14/18 20:12 98.5 F 101 18 116/66 100 04/14/18 19:56 98.5 F 103 18 116/66 100 04/14/18 18:15 100 F H 101 20 111/77 04/14/18 18:00 101 20 100 Intake and Output 04/15/18 04/15/18 04/15/18 07:59 15:59 23:59 Intake Total 160 / 160 340 / 340 Output Total 350 / 350 400 / 400 1000 / 1000 Balance -190 / -190 -60 / -60 -1000 / -1000 Intake: IV Fluids 160 / 160 340 / 340 Heparin 25,000 UNIT/500 ML D5W 160 / 160 340 / 340 25,000 unit In 500 ml @ 14 UNIT /KG/HR 18.676 mls/hr IVC .Q24H [facility] Rx#:[id number] Output: Catheter 350 / 350 400 / 400 1000 / 1000 Other: Weight 78.5 kg Blood Glucose* 206 250 214 Patient Weight 04/15/18 23:59 Weight 78.5 kg Incision: clean and dry - Labs CBC & BMP: 04/15/18 04:14 04/15/18 04:14 Labs: Abnormal lab results WBC 17.6 K/mcL (4.3-11.1) H 04/15/18 04:14 RBC 3.13 M/mcL (3.82-4.97) L 04/15/18 04:14 Hgb 9.0 g/dL (11.5-15.4) L 04/15/18 04:14 Hct 27.0 % (35.3-44.9) L 04/15/18 04:14 Band Neutrophils % 6.0 % (0-4) H 04/13/18 05:34 Neutrophils # 14.8 K/mcL (1.6-8.9) H 04/15/18 04:14 Toxic Granulation Present (Not Present) A 04/12/18 16:20 Large Platelets Present (Not Present) A 04/13/18 05:34 Immature Plt Fraction 13.2 % (1.1-6.1) H 04/10/18 03:56 Anisocytosis 1+ (Not Present) A 04/13/18 05:34 ESR 85 mm/hr (0-15) H 04/15/18 04:14 D-Dimer 5840 ng/mLFEU (0-500) H 04/10/18 11:00 Heparin Anti-Xa, Unfract 0.18 IU/mL (0.30-0.70) L 04/15/18 09:17 VBG pCO2 33 mmHg (41-51) L 04/06/18 10:45 VBG pO2 84 mmHg (25-50) H 04/06/18 10:45 Sodium 133 mEq/L (136-145) L 04/15/18 04:14 BUN 28 mg/dL (8-23) H 04/15/18 04:14 Creatinine 0.47 mg/dL (0.60-1.20) L 04/15/18 04:14 BUN/Creatinine Ratio 60 (6-26) H 04/15/18 04:14 Glucose 256 mg/dL (70-105) H 04/15/18 04:14 POC Glucose 321 mg/dL (70-99) H 04/14/18 19:51 Hemoglobin A1c 7.8 % (-5.6) H 04/06/18 10:31 Calcium 7.8 mg/dL (8.6-10.3) L 04/15/18 04:14 Phosphorus 2.5 mg/dL (2.7-4.5) L 04/07/18 03:31 Alkaline Phosphatase 260 Units/L (34-104) H 04/15/18 04:14 Creatine Kinase 22 Units/L (30-223) L 04/06/18 13:46 C-Reactive Protein 137 mg/L (Less than 10) H 04/15/18 04:14 Serum Total Protein 4.8 g/dL (6.4-8.9) L 04/15/18 04:14 Albumin 1.7 g/dL (3.5-5.7) L 04/15/18 04:14 Albumin/Globulin Ratio 0.5 (1.1-2.2) L 04/15/18 04:14 TSH 0.248 mcIU/mL (0.340-5.600) L 04/06/18 10:31 Ur Specimen Adequacy See below A 04/06/18 11:55 Urine Protein 30 mg/dL (Neg-Trace) H 04/06/18 11:55 Urine Glucose (UA) 250 mg/dL (Normal) H 04/06/18 11:55 Urine Blood Small (Negative) H 04/06/18 11:55 Urine Microscopic RBC 5-15 per hpf (0-3) H 04/06/18 11:55 Ur Squamous Epith Cells Many per lpf (None-Few) H 04/06/18 11:55 Fluid Crystals CPPD Crystals Seen (None Seen) A 04/09/18 12:30 Synovial Appearance Cloudy (Clear-Hazy) A 04/09/18 12:30 Vancomycin Trough 14 mcg/mL (5-10) H 04/15/18 09:17 Urine Opiates Screen Positive ng/mL (Djugja=079) H 04/06/18 11:54 Staphylococcus sp PCR DETECTED (Not Detect) A 04/13/18 05:46 Staph aureus (PCR) DETECTED (Not Detect) A 04/13/18 05:46 mecA-Methicil Res Gene DETECTED (Not Detect) A 04/13/18 05:46 Consult Discharge Plan - Plan Referrals: Misael Lopez MD [Non-Partnered Physician] - (Patient is going to rehab no PCP appointment needed)
[2018-04-15] MEDS: Ibuprofen 400 MG TABLET PO PRN (20:33)
[2018-04-15] MEDS: Insulin DETEMIR 100 UNIT/ML X5UNITS SQ SCH (20:34)
[2018-04-16] MEDS: *HR* OxyCODONE Immed Rel 5 MG TABLET PO PRN ×5 (00:46→21:59)
[2018-04-16] MEDS: Heparin 25,000 UNIT/500 ML D5W 25,000 UNIT/500 ML BAG IVC SCH ×2 (01:26→13:51)
[2018-04-16 01:42] LABS: Basophils % 0.3 %; Eosinophils # 0.1 K/mcL (0.0-0.6); Eosinophils % 0.6 %; Hematocrit 28.7 % (35.3-44.9); Hemoglobin 9.5 g/dL (11.5-15.4); Immature Granulocytes % 3.8 % (0-4); Lymphocytes # 1.3 K/mcL (0.6-4.6); Lymphocytes % 8.5 %; Mean Corpuscular HGB Conc 33.1 g/dL (31.6-35.5); Mean Corpuscular Hemoglobin 29.2 pg (28.0-33.3); Mean Corpuscular Volume 88.3 fL (83.0-100.0); Mean Platelet Volume 10.6 fL (9.4-12.4); Monocytes # 0.5 K/mcL (0.0-1.3); Monocytes % 3.5 %; Neutrophils # 12.8 K/mcL (1.6-8.9); Platelet Count 480 K/mcL (140-400); Red Blood Count 3.25 M/mcL (3.82-4.97); Red Cell Distribution Width 14.2 % (11.5-14.5); Segmented Neutrophils % 83.3 %
[2018-04-16 01:59] LABS: BUN/Creatinine Ratio 49 (6-26); Blood Urea Nitrogen 21 mg/dL (8-23); Calcium 7.7 mg/dL (8.6-10.3); Carbon Dioxide 25 mEq/L (23-29); Chloride 101 mEq/L (98-107); Glucose 167 mg/dL (70-105); Osmolality,Calculated 281 (280-300); Potassium 3.6 mEq/L (3.5-5.1); Sodium 132 mEq/L (136-145); eGFR For Non-African Americans > 60 (> 60)
--- NOTE | 2018-04-16 08:48 | Pulmonology Progress Note ---
<Paul Montenegro W - Last Filed: 04/16/18 12:18> Objective PUL Vital signs: Last Vital Signs Temp 99.5 F 04/16/18 11:43 Pulse 95 04/16/18 11:43 Resp 16 04/16/18 11:43 BP 113/59 04/16/18 11:43 Pulse Ox 100 04/16/18 11:43 Results - Laboratory Findings CBC and BMP: 04/16/18 01:28 04/16/18 01:28 PT/INR, D-dimer PT 12.1 Seconds (9.4-12.1) 04/11/18 11:35 D-Dimer 5840 ng/mLFEU (0-500) H 04/10/18 11:00 Abnormal lab findings: Abnormal lab results WBC 15.4 K/mcL (4.3-11.1) H 04/16/18 01:28 RBC 3.25 M/mcL (3.82-4.97) L 04/16/18 01:28 Hgb 9.5 g/dL (11.5-15.4) L 04/16/18 01:28 Hct 28.7 % (35.3-44.9) L 04/16/18 01:28 Plt Count 480 K/mcL (140-400) H 04/16/18 01:28 Band Neutrophils % 6.0 % (0-4) H 04/13/18 05:34 Neutrophils # 12.8 K/mcL (1.6-8.9) H 04/16/18 01:28 Toxic Granulation Present (Not Present) A 04/12/18 16:20 Large Platelets Present (Not Present) A 04/13/18 05:34 Immature Plt Fraction 13.2 % (1.1-6.1) H 04/10/18 03:56 Anisocytosis 1+ (Not Present) A 04/13/18 05:34 ESR 85 mm/hr (0-15) H 04/15/18 04:14 D-Dimer 5840 ng/mLFEU (0-500) H 04/10/18 11:00 VBG pCO2 33 mmHg (41-51) L 04/06/18 10:45 VBG pO2 84 mmHg (25-50) H 04/06/18 10:45 Sodium 132 mEq/L (136-145) L 04/16/18 01:28 Creatinine 0.43 mg/dL (0.60-1.20) L 04/16/18 01:28 BUN/Creatinine Ratio 49 (6-26) H 04/16/18 01:28 Glucose 167 mg/dL (70-105) H 04/16/18 01:28 POC Glucose 342 mg/dL (70-99) H 04/15/18 20:30 Hemoglobin A1c 7.8 % (-5.6) H 04/06/18 10:31 Calcium 7.7 mg/dL (8.6-10.3) L 04/16/18 01:28 Phosphorus 2.5 mg/dL (2.7-4.5) L 04/07/18 03:31 Alkaline Phosphatase 260 Units/L (34-104) H 04/15/18 04:14 Creatine Kinase 22 Units/L (30-223) L 04/06/18 13:46 C-Reactive Protein 137 mg/L (Less than 10) H 04/15/18 04:14 B-Natriuretic Peptide 219 pg/mL (Less than 100) H 04/15/18 20:12 Serum Total Protein 4.8 g/dL (6.4-8.9) L 04/15/18 04:14 Albumin 1.7 g/dL (3.5-5.7) L 04/15/18 04:14 Albumin/Globulin Ratio 0.5 (1.1-2.2) L 04/15/18 04:14 TSH 0.248 mcIU/mL (0.340-5.600) L 04/06/18 10:31 Ur Specimen Adequacy See below A 04/06/18 11:55 Urine Protein 30 mg/dL (Neg-Trace) H 04/06/18 11:55 Urine Glucose (UA) 250 mg/dL (Normal) H 04/06/18 11:55 Urine Blood Small (Negative) H 04/06/18 11:55 Urine Microscopic RBC 5-15 per hpf (0-3) H 04/06/18 11:55 Ur Squamous Epith Cells Many per lpf (None-Few) H 04/06/18 11:55 Fluid Crystals CPPD Crystals Seen (None Seen) A 04/09/18 12:30 Synovial Appearance Cloudy (Clear-Hazy) A 04/09/18 12:30 Vancomycin Trough 14 mcg/mL (5-10) H 04/15/18 09:17 Urine Opiates Screen Positive ng/mL (Candqz=554) H 04/06/18 11:54 Staphylococcus sp PCR DETECTED (Not Detect) A 04/13/18 05:46 Staph aureus (PCR) DETECTED (Not Detect) A 04/13/18 05:46 mecA-Methicil Res Gene DETECTED (Not Detect) A 04/13/18 05:46 - Microbiology Findings Microbiology Findings: Microbiology, Last 48 Hours 04/14/18 04:20 Blood Culture - Final Peripheral Venipuncture Methicillin Resistant S.aureus 04/14/18 04:20 Blood Culture - Final Peripheral Venipuncture Methicillin Resistant S.aureus 04/16/18 01:28 Blood Culture - Preliminary Peripheral Venipuncture Culture is incubating and being continuously monitored for growth. Final report to follow. 04/16/18 01:28 Blood Culture - Preliminary Peripheral Venipuncture Culture is incubating and being continuously monitored for growth. Final report to follow. 04/15/18 16:15 Legionella Antigen - Final Urine,Clean Catch Streptococcus pneumoniae Antigen (M - Final 04/13/18 05:46 Blood Culture - Final Peripheral Venipuncture Methicillin Resistant S.aureus 04/13/18 05:34 Blood Culture - Preliminary Peripheral Venipuncture Gram Positive Cocci - Clusters 04/11/18 18:25 Anaerobic Culture - Preliminary Right Knee At this time, no anaerobic growth is present. The culture will be finalized after 5 days of incubation. 04/11/18 18:25 Wound Culture - Final Right Knee Methicillin Resistant S.aureus - Clinical Findings Intake & Output: Intake & Output 04/15/18 04/16/18 04/16/18 23:59 07:59 15:59 Intake Total 323 / 323 677 / 677 Output Total 1000 / 1000 1200 / 1200 Balance -677 / -677 -523 / -523 Weight 79.5 kg Consult Discharge Plan - Plan Referrals: Misael Lopez MD [Non-Partnered Physician] - (Patient is going to rehab no PCP appointment needed) Prescriptions: Apixaban [Eliquis] 5 mg PO BID 30 Days #60 tablet - Attending Attestation I examined this patient and my medical decision-making was reviewed with the Resident Physician. I agree with the documented findings, disposition and treatment plan as described except to the extent set forth below. We ind ependently had [id number] contact with the patient Patient seen and examined at bedside Labs, radiology, chart personally reviewed. Impression: Pleural Effusions MRSA bacteremia Afib with RVR Recs: Given patient's stability and continuation of convalescence Thoracentesis can be completed on an as-needed basis with interventional radiology. Antibiotics per infectious disease Cardiology following A. fib and hydrostatic pulmonary edema Pulmonary will sign off please call with questions <Leyla Byers - Last Filed: 04/16/18 17:43> Date of Encounter: 04/16/18 Time of Encounter: 08:45 Assessment and Plan (1) Pleural effusion Current Visit: Yes Status: Acute Continues to be saturating well, SpO2 100% on nasal cannula--dried blood observed in right nostril likely d/t supplemental O2 drying out nasal mucosa CXR 04/14: bilateral effusions with bibasilar airspace disease Chest CT 04/15: pleural effusions were again identified with adjacent atelectasis; pulmonary vascular congestion also noted Doubt infectious origin such as infected paraneumonic effusions Etiology likely related to the Afib with RVR she developed during this admission compounded by continuous IV fluids--fluids now on hold If patient clinically deteriorates or respiratory status declines, we will reconsider thoracentesis Recommend taking off supplemental O2 and monitoring pulse ox, I suspect she will be able to maintain appropriate SpO2 without supplemental O2 Recommend continuing gentle diuresis, as tolerated by renal function, to remove excess fluid and optimize lung function (2) Bacteremia Current Visit: Yes Status: Acute Causative organism MRSA Likely d/t right knee septic arthritis Blood cultures 04/10: MRSA positive Repeat blood cultures have continued to show growth Antibiotic therapy as per infectious disease (3) Atrial fibrillation with RVR Current Visit: Yes Status: Resolved As above New onset of Afib with RVR most likely related to her septic joint and bacteremia Regular rhythm on telemetry Management as per cardiology Subjective Principal diagnosis: pleural effusion Interval history: Patient seen and examined this morning at bedside. She reports her breathing is the same as yesterday, but maybe a little bit better. She denies coughing, wheezing, sputum production. Her son, also present in the room, states his mother was doing very well last night and was in high spirits. Patient states she felt very hot last night, but no fever recorded. Her son states the RN gave her Motrin last night. Her main complaint is bilateral leg pain and back pain. Objective PUL Vital signs: Last Vital Signs Temp 99.4 F 04/16/18 07:42 Pulse 95 04/16/18 07:42 Resp 18 04/16/18 07:42 BP 112/78 04/16/18 07:42 Pulse Ox 100 04/16/18 07:42 General appearance: no acute distress Eyes: nonicteric ENT: oropharynx dry Neck: supple Effort: normal Auscultation: bilateral: clear, diminished breath sounds (Bases) Cardiovascular: other (Regular rhythm, slightly tachycardic in low 100s) Gastrointestinal: soft, non-tender Integumentary: normal Extremities: no cyanosis, no clubbing, pink and warm, edema (Left upper extremity) normal mental status, non-focal exam, pupils equal and round mood appropriate, affect normal Results - Laboratory Findings CBC and BMP: 04/16/18 01:28 04/16/18 01:28 PT/INR, D-dimer PT 12.1 Seconds (9.4-12.1) 04/11/18 11:35 D-Dimer 5840 ng/mLFEU (0-500) H 04/10/18 11:00 Abnormal lab findings: Abnormal lab results WBC 15.4 K/mcL (4.3-11.1) H 04/16/18 01:28 RBC 3.25 M/mcL (3.82-4.97) L 04/16/18 01:28 Hgb 9.5 g/dL (11.5-15.4) L 04/16/18 01:28 Hct 28.7 % (35.3-44.9) L 04/16/18 01:28 Plt Count 480 K/mcL (140-400) H 04/16/18 01:28 Band Neutrophils % 6.0 % (0-4) H 04/13/18 05:34 Neutrophils # 12.8 K/mcL (1.6-8.9) H 04/16/18 01:28 Toxic Granulation Present (Not Present) A 04/12/18 16:20 Large Platelets Present (Not Present) A 04/13/18 05:34 Immature Plt Fraction 13.2 % (1.1-6.1) H 04/10/18 03:56 Anisocytosis 1+ (Not Present) A 04/13/18 05:34 ESR 85 mm/hr (0-15) H 04/15/18 04:14 D-Dimer 5840 ng/mLFEU (0-500) H 04/10/18 11:00 VBG pCO2 33 mmHg (41-51) L 04/06/18 10:45 VBG pO2 84 mmHg (25-50) H 04/06/18 10:45 Sodium 132 mEq/L (136-145) L 04/16/18 01:28 Creatinine 0.43 mg/dL (0.60-1.20) L 04/16/18 01:28 BUN/Creatinine Ratio 49 (6-26) H 04/16/18 01:28 Glucose 167 mg/dL (70-105) H 04/16/18 01:28 POC Glucose 342 mg/dL (70-99) H 04/15/18 20:30 Hemoglobin A1c 7.8 % (-5.6) H 04/06/18 10:31 Calcium 7.7 mg/dL (8.6-10.3) L 04/16/18 01:28 Phosphorus 2.5 mg/dL (2.7-4.5) L 04/07/18 03:31 Alkaline Phosphatase 260 Units/L (34-104) H 04/15/18 04:14 Creatine Kinase 22 Units/L (30-223) L 04/06/18 13:46 C-Reactive Protein 137 mg/L (Less than 10) H 04/15/18 04:14 B-Natriuretic Peptide 219 pg/mL (Less than 100) H 04/15/18 20:12 Serum Total Protein 4.8 g/dL (6.4-8.9) L 04/15/18 04:14 Albumin 1.7 g/dL (3.5-5.7) L 04/15/18 04:14 Albumin/Globulin Ratio 0.5 (1.1-2.2) L 04/15/18 04:14 TSH 0.248 mcIU/mL (0.340-5.600) L 04/06/18 10:31 Ur Specimen Adequacy See below A 04/06/18 11:55 Urine Protein 30 mg/dL (Neg-Trace) H 04/06/18 11:55 Urine Glucose (UA) 250 mg/dL (Normal) H 04/06/18 11:55 Urine Blood Small (Negative) H 04/06/18 11:55 Urine Microscopic RBC 5-15 per hpf (0-3) H 04/06/18 11:55 Ur Squamous Epith Cells Many per lpf (None-Few) H 04/06/18 11:55 Fluid Crystals CPPD Crystals Seen (None Seen) A 04/09/18 12:30 Synovial Appearance Cloudy (Clear-Hazy) A 04/09/18 12:30 Vancomycin Trough 14 mcg/mL (5-10) H 04/15/18 09:17 Urine Opiates Screen Positive ng/mL (Yekfmf=636) H 04/06/18 11:54 Staphylococcus sp PCR DETECTED (Not Detect) A 04/13/18 05:46 Staph aureus (PCR) DETECTED (Not Detect) A 04/13/18 05:46 mecA-Methicil Res Gene DETECTED (Not Detect) A 04/13/18 05:46 - Microbiology Findings Microbiology Findings: Microbiology, Last 48 Hours 04/14/18 04:20 Blood Culture - Final Peripheral Venipuncture Methicillin Resistant S.aureus 04/14/18 04:20 Blood Culture - Final Peripheral Venipuncture Methicillin Resistant S.aureus 04/16/18 01:28 Blood Culture - Preliminary Peripheral Venipuncture Culture is incubating and being continuously monitored for growth. Final report to follow. 04/16/18 01:28 Blood Culture - Preliminary Peripheral Venipuncture Culture is incubating and being continuously monitored for growth. Final report to follow. 04/15/18 16:15 Legionella Antigen - Final Urine,Clean Catch Streptococcus pneumoniae Antigen (M - Final 04/13/18 05:46 Blood Culture - Final Peripheral Venipuncture Methicillin Resistant S.aureus 04/13/18 05:34 Blood Culture - Preliminary Peripheral Venipuncture Gram Positive Cocci - Clusters 04/11/18 18:25 Anaerobic Culture - Preliminary Right Knee At this time, no anaerobic growth is present. The culture will be finalized after 5 days of incubation. 04/11/18 18:25 Wound Culture - Final Right Knee Methicillin Resistant S.aureus - Clinical Findings Intake & Output: Intake & Output 04/15/18 04/16/18 04/16/18 23:59 07:59 15:59 Intake Total 323 / 323 577 / 577 Output Total 1000 / 1000 1200 / 1200 Balance -677 / -677 -623 / -623 Weight 79.5 kg
[2018-04-16] MEDS: Insulin LISPRO 300 UNITS/3 ML VIAL SQ SCH ×4 (08:57→22:00)
[2018-04-16] MEDS: Budesonide/Formoterol 160/4.5 1 PUFF INH IH SCH ×2 (09:03→20:46)
--- NOTE | 2018-04-16 09:07 | Internal Med Progress Note ---
<Levar Oneil S - Last Filed: 04/16/18 12:05> Hospitalist Progress Note - Encounter Date of Encounter: 04/16/18 Time of Encounter: 09:01 - Subjective Interval History: Pt is seen at the bedside. She is hospital day 10. The pt was admitted with c/o left shoulder and right knee pain on 04/06. She had been experiencing increasing pain over the last 6mos and was unable to complete her ADLs due to the worsening joint pain. The pt family reported intermittent episodes of confusion. Ortho was consulted to see the pt and they recommended outpatient management with PTOT and sports medicine. They recommended rheumatology consult. The pt then experienced A fib with RVR and was put on IV heparin anticoagulation as per cardiology and lopressor. - currently the pt has beta blockers held 2/2 hypotension Rheumatology saw the pt on 04/10 after a rigth knee arthrocentesis was performed . 10cc yellow, purulent fluid was obtained and fluid analysis showed CPPD crystals and g(+) cocci. -ortho and rheumatology discussed the case and the pt was brought to the OR for arthroscopy on 04/1104/15/18 - Pulmonology consulted for b/l pleural effusions, pt opted to try diuresis instead of an invasive procedure. The pt reports some discomfort in her arm, which is worse than yesterday. She denies CP, SOB, N/V/D. She does have pain in her lower back and neck, which she requests lidocaine patches for. - Exam Vitals: Temp Pulse Resp BP Pulse Ox 99.4 F 95 15 112/78 99 04/16/18 07:42 04/16/18 07:42 04/16/18 08:58 04/16/18 08:58 04/16/18 08:58 Exam: Constitutional: Alert and oriented 3, highly distressed secondary to pain HEENT: Normocephalic, atraumatic, moist mucus membranes Heart: Regular rhythm, no murmurs, no edema Lungs: lungs clear and equal bilaterally, no rhonchi, no wheeze Abdomen: Soft, normal bowel sounds, no rigidity Extremities: no erythema noted at the right knee, right knee tenderness upon palpation; no shoulder pain elicited upon palpation, no calf tenderness, nonpitting edema of the left upper extremity has improved Skin: warm and dry, no lesions, no rashes, no jaundice Psych: thought content congruent, normal mood and normal affect Neurological: Alert and oriented x 3 - Assessment and Plan (1) Pneumonia Current Visit: Yes Status: Suspected Assessment and Plan: Pt has been having temperature spikes, overnight t max was 100.5 -WBC count elevated on 04/14: 16.4 ---> 04/15: 17.6 -White count 04/16 is 15.4 - CXR on 04/14/18 showed bilateral effusions with bibasilar airspace disease - CT scan of chest showed Mod/large right pleural effusion, mod left pleural effusion w/ adjacent atelectasis or pneumonia at the bases Pulmonary vascular congestion - Blood cx showed g(+) cocci - Pt currently meets sepsis criteria HR 95 Elevated white count Source of infxn = blood (+) for gram positive cocci Plan: - continue vancomycin day 7, Zosyn day 2 - ID following repeat blood cx pending - pt is getting Lasix 20mg IVP BID for pulmonary vascular congestion; will not perform thoracentesis as per pulmonology unless breathing status deteroirates - follow cbc/cmp (2) Deep venous thrombosis of left upper extremity Current Visit: Yes Status: Acute Assessment and Plan: Pt has been reporting LUE pain -US ordered 04/14 revealed DVT in the left brachial and radial veins of the LUE Plan: - continue heparin drip - will speak to pharmacy about transitioning to eliquis and continuing anticoagulation after discharge (3) Sepsis Current Visit: Yes Status: Acute Assessment and Plan: Likely secondary to septic joint Currently does meet sepsis criteria Blood cx (+) for MRSA, wound cx (+) for MRSA, repeat blood cx resulted 04/14 and was positive for g(+) cocci WBC count 10.3 on admission ---> on 04/14 WBC count 16.4 ----> 04/15 WBC count 17.6 - HR 95, RR 18 -BP 112/78 -afebrile , t = 99.4 - 04/11/18 underwent right knee arthroscopy irrigation debridement - medial and lateral menisci were evaluated. No tear of the medial or lateral meniscus was identified. - ACL and PCL w/o pathology. - right knee arthrocentesis was performed on 04/09 --- 10cc yellow, purulent fluid was obtained and fluid analysis showed CPPD crystals and g(+) cocci. Plan: - discontinue 0.9% NS 50cc/hr - Vancomycin day 7, zosyn day 2 -ID following As per ID, will most likely need 4-6 wks of abx tx Plan for midline or PICC placement when closer to discharge - Ortho following - blood cx pending (4) Anemia Current Visit: Yes Status: Acute Assessment and Plan: May be 2/2 to sepsis Hemoglobin trending down. -admission hemoglobin 11.3 ---> 10.9 ---> 8.6 ---> 8.5 ----> 04/14/18 hemoglobin 7.3 -currently on heparin drip - pt was given 1 unit of RBC 04/14, hgb improved to 9, was 9.5 on 04/16 Plan: - FOBT pending - continue to monitor cbc (5) Atrial fibrillation with RVR Current Visit: Yes Status: Resolved Assessment and Plan: New onset A fib RVR -cardiology consulted and signed off -Troponin <0.03 x 2 -ECHO on 04/10 showed LVEF 65-70%, normal LV systolic and diastolic fxn, no significant valvular dysfxn Currently in sinus rhythm, HR 77 -CHADVASc of 4 Plan: - amiodarone drip d/c as per cardiology - Lopressor 25mg PO adal as per cardiology - on Heparin drip as per protocol, pt had run of A fib RVR 04/13 as per nursing staff - on telemetry (6) Shoulder subluxation, left Current Visit: Yes Status: Acute Assessment and Plan: Pt pain improving Shoulder XR on 04/07 - Severe left glenohumeral joint osteoarthritic degenerative changes with large marginal osteophytes, subchondral changes and bony remottling. - Calcification, no acute fx or dislocation Plan: - PTOT as toleration - pain control with oxcodone - ice as needed - pt had IR guided fluorscopy 5 days ago , no fluid was aspirated - rheumatology following - medrol dose pack and flexaril ordered; as per rheum will hold off on medrol (7) Arthritis of right knee Current Visit: Yes Status: Acute Assessment and Plan: Pt has hx of severe OA, fam hx of rheumatoid arthritis Plan: - right knee arthroscopy irrigation and debridement with Dr. Fournier 3 days ago - joint aspiration cultures positive for gram-positive cocci, repeat blood cx showed g(+) cocci - vancomycin day 7 - zosyn day 2 (8) Type 1 diabetes Current Visit: Yes Status: Acute Assessment and Plan: Glucose this morning 167 -continue determir, increased to 15U -continue sliding scale as per protocol (9) Hyponatremia Current Visit: Yes Status: Acute Assessment and Plan: Sodium this morning 132 Plan: - discontinue 75cc/hr 0.9% NS - lisinopril and HCTZ held - check BMP in the morning (10) Abnormal TSH Current Visit: Yes Status: Acute Assessment and Plan: TSH 0.248 -FT4 1.25, FT3 3.11 -likely subclinical hypothyroidism -follow up outpatient (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 Was 3.4 04/13 Plan: - Replaced with oral supplement - continue to monitor electrolytes (14) DVT prophylaxis Current Visit: Yes Status: Acute Assessment and Plan: on heparin drip (15) Acute respiratory failure Current Visit: Yes Status: Acute Assessment and Plan: See plan as above for pneumonia. - pt unable to tolerate lowering oxygen - currently on 2L of 28% fractioned O2. O2 sat at 99 - Time Spent with Patient Total time spent is greater than 50% in coordination of care (as documented) at patient's floor/unit and/or counseling patient: Internal Medicine: Result - Labs CBC & Chem 7: 04/16/18 01:28 04/16/18 01:28 Labs: Short CBC 04/16/18 Range/Units 01:28 WBC 15.4 H (4.3-11.1) K/mcL Hgb 9.5 L (11.5-15.4) g/dL Hct 28.7 L (35.3-44.9) % Plt Count 480 H (140-400) K/mcL Neutrophils # 12.8 H (1.6-8.9) K/mcL BMP 04/16/18 01:28 Sodium 132 L Potassium 3.6 Chloride 101 Carbon Dioxide 25 BUN 21 Creatinine 0.43 L Glucose 167 H Calcium 7.7 L - ABG Interpretation ABG results: PT/INR, D-dimer PT 12.1 Seconds (9.4-12.1) 04/11/18 11:35 D-Dimer 5840 ng/mLFEU (0-500) H 04/10/18 11:00 - Impressions Impressions Chest CT 04/15/18 10:30 IMPRESSION: 1. Moderate to large right pleural effusion and moderate left pleural effusion with adjacent atelectasis and/or pneumonia notable at lung bases. 2. Peribronchial thickening suggestive of peribronchial inflammation. 3. Pulmonary vascular congestion. 4. Noncalcified nodule located in right lower lobe measures 5 mm and nodule located in right upper lobe measures approximately 4 mm. Continued follow-up recommended as clinically indicated based on patient risk factors. 5. Multiple prominent mediastinal lymph nodes. 6. Generalized body wall edema. D/ / Earle Rodriguez / Earle Rodriguez Interpreting Provider: Earle Rodriguez Consult Discharge Plan - Plan Referrals: Misael Lopez MD [Non-Partnered Physician] - (Patient is going to rehab no PCP appointment needed) Prescriptions: Apixaban [Eliquis] 5 mg PO BID 30 Days #60 tablet <Joseph Arciniega - Last Filed: 04/16/18 14:03> Hospitalist Progress Note - Exam Vitals: Temp Pulse Resp BP Pulse Ox 99.5 F 95 16 113/59 100 04/16/18 11:43 04/16/18 11:43 04/16/18 11:43 04/16/18 11:43 04/16/18 11:43 - Assessment and Plan (1) Shoulder subluxation, left Current Visit: Yes Status: Acute (2) Arthritis of right knee Current Visit: Yes Status: Acute (3) Type 1 diabetes Current Visit: Yes Status: Acute (4) Hyponatremia Current Visit: Yes Status: Acute (5) Abnormal TSH Current Visit: Yes Status: Acute (6) DVT prophylaxis Current Visit: Yes Status: Acute (7) Calcium pyrophosphate arthropathy Current Visit: Yes Status: Acute (8) Atrial fibrillation with RVR Current Visit: Yes Status: Resolved (9) Sepsis Current Visit: Yes Status: Acute (10) Bacteremia Current Visit: Yes Status: Acute (11) Hypokalemia Current Visit: Yes Status: Resolved (12) Anemia Current Visit: Yes Status: Acute (13) Deep venous thrombosis of left upper extremity Current Visit: Yes Status: Acute (14) Pneumonia Current Visit: Yes Status: Suspected (15) Acute respiratory failure Current Visit: Yes Status: Acute - Time Spent with Patient Total time spent is greater than 50% in coordination of care (as documented) at patient's floor/unit and/or counseling patient: Internal Medicine: Result - Labs CBC & Chem 7: 04/16/18 01:28 04/16/18 01:28 Labs: Short CBC 04/16/18 Range/Units 01:28 WBC 15.4 H (4.3-11.1) K/mcL Hgb 9.5 L (11.5-15.4) g/dL Hct 28.7 L (35.3-44.9) % Plt Count 480 H (140-400) K/mcL Neutrophils # 12.8 H (1.6-8.9) K/mcL BMP 04/16/18 01:28 Sodium 132 L Potassium 3.6 Chloride 101 Carbon Dioxide 25 BUN 21 Creatinine 0.43 L Glucose 167 H Calcium 7.7 L - ABG Interpretation ABG results: PT/INR, D-dimer PT 12.1 Seconds (9.4-12.1) 04/11/18 11:35 D-Dimer 5840 ng/mLFEU (0-500) H 04/10/18 11:00 - Attending Attestation I examined this patient and my medical decision-making was reviewed with the Resident Physician. I agree with the documented findings, disposition and treatment plan as described except to the extent set forth below. <ThadLevar Talley - Last Filed: 04/16/18 12:05> (1) Pneumonia Qualifiers: Pneumonia type: due to unspecified organism Laterality: bilateral Lung location: unspecified part of lung Qualified Code(s): J18.9 - Pneumonia, unspecified organism (2) Deep venous thrombosis of left upper extremity Qualifiers: Affected thrombotic vein of extremity: brachial Chronicity: acute Qualified Code(s): I82.622 - Acute embolism and thrombosis of deep veins of left upper extremity (3) Sepsis Qualifiers: Sepsis type: sepsis due to unspecified organism Qualified Code(s): A41.9 - Sepsis, unspecified organism (4) Anemia Qualifiers: Anemia type: unspecified type Qualified Code(s): D64.9 - Anemia, unspecified (6) Shoulder subluxation, left Qualifiers: Encounter type: initial encounter Qualified Code(s): S43.002A - Unspecified subluxation of left shoulder joint, initial encounter (8) Type 1 diabetes Qualifiers: Diabetes mellitus complication status: with unspecified complications Qualified Code(s): E10.8 - Type 1 diabetes mellitus with unspecified complications (15) Acute respiratory failure Qualifiers: Respiratory failure complication: hypoxia Qualified Code(s): J96.01 - Acute respiratory failure with hypoxia <Joseph Arciniega - Last Filed: 04/16/18 14:03> (1) Shoulder subluxation, left Qualifiers: Encounter type: initial encounter Qualified Code(s): S43.002A - Unspecified subluxation of left shoulder joint, initial encounter (3) Type 1 diabetes Qualifiers: Diabetes mellitus complication status: with unspecified complications Qualified Code(s): E10.8 - Type 1 diabetes mellitus with unspecified comp lications (9) Sepsis Qualifiers: Sepsis type: sepsis due to unspecified organism Qualified Code(s): A41.9 - Sepsis, unspecified organism (12) Anemia Qualifiers: Anemia type: unspecified type Qualified Code(s): D64.9 - Anemia, unspecified (13) Deep venous thrombosis of left upper extremity Qualifiers: Affected thrombotic vein of extremity: brachial Chronicity: acute Qualified Code(s): I82.622 - Acute embolism and thrombosis of deep veins of left upper extremity (14) Pneumonia Qualifiers: Pneumonia type: due to unspecified organism Laterality: bilateral Lung location: unspecified part of lung Qualified Code(s): J18.9 - Pneumonia, unspecified organism (15) Acute respiratory failure Qualifiers: Respiratory failure complication: hypoxia Qualified Code(s): J96.01 - Acute respiratory failure with hypoxia
[2018-04-16] MEDS: traMADol 50 MG TABLET PO SCH (09:17)
[2018-04-16] MEDS: Metoprolol XL (24 HR) Succ 25 MG TAB.ER.24H PO SCH (09:17)
[2018-04-16] MEDS: Multivit/Ca/Min/Fe/FA 1 TAB TABLET PO SCH (09:17)
[2018-04-16] MEDS: Piperacillin/Tazobactam 3.375 GM in 0.9 % Sodium Chloride Mini Bag 100 ML IVPB SCH ×3 (09:17→16:44)
[2018-04-16] MEDS: Nystatin SUSP 5 ML UD.LIQ PO SCH ×4 (09:17→21:59)
--- NOTE | 2018-04-16 09:56 | Infectious Disease Progress No ---
Date of Encounter: 04/16/18 Time of Encounter: 09:20 - Assessment and Plan (1) Sepsis Current Visit: Yes Status: Acute The patient had 2 sepsis criteria plus altered mental status. Likely secondary to bacteremia and right knee septic arthritis. Improved. WBC trending back down. Tachycardia improved. Afebrile overnight. Blood cultures drawn 04/10/18 are +2 out of 2 sets for MRSA. Repeat blood cultures drawn 04/13/18 are positive 2/2 sets. Additional blood cultures drawn 04/14/18 are positive 2/2 sets. Repeat blood cultures drawn 04/16/18 are pending x 2 sets. Qualifiers: Sepsis type: sepsis due to unspecified organism Qualified Code(s): A41.9 - Sepsis, unspecified organism (2) Bacteremia Current Visit: Yes Status: Acute Causative organism: MRSA. Source: Right knee septic arthritis. Blood cultures drawn 04/10/18 are +2 out of 2 sets. Repeat blood cultures drawn 04/13/18 are positive 2/2 sets. Additional cultures drawn 04/14/18 are positive 2/2 sets. Repeat blood cultures drawn 04/16/18 are pending x 2 sets. Complicated due to the presence of septic arthritis of the right knee and persistent bacteremia. The patient has no indwelling hardware or pacemaker. The patient has one major and one minor Modified [place] criteria. She does not have any endocarditis stigmata noted on exam. Transthoracic echocardiogram negative for vegetations. Get IDALIA prior to discharge. Check rheumatoid factor.--> <10. Continue vancomycin IV. Pharmacy to dose. Goal trough proximally 15. Vanc trough 04/15/18 14. Duration of treatment depends on the clinical picture, but likely 4-6 weeks. Monitor renal function for drug toxicity and dose adjust antibiotics. Continue contact precautions per hospital policy. Avoid insertion of long-term IV access until repeat blood cultures are negative x 48 hours. Further OPAT recommendations to follow pending clinical and culture outcomes. (3) Septic arthritis of knee, right Current Visit: Yes Status: Acute Location: Right knee. Causative organism: MRSA MRI of the right knee showed a moderate joint effusion. The sterility of joint fluid was indeterminate on imaging and an infectious process could not be excluded. Rheumatology consult and following. Status post bedside arthrocentesis that revealed cloudy purulent fluid. Cell count with differential could not be performed due to the viscosity of the specimen. Orthopedics consulted. Status post arthroscopic I & D 04/11/[address] Fournier. Operative note reviewed. Pus noted intra-op. Cultures as above. Continue antibiotics as stated above. Duration of treatment and clinical picture, but likely 4 weeks of IV antibiotics. Monitor renal function for drug toxicity and does just antibiotics. Wound care and activity restrictions per the ortho team. Qualifiers: Septic arthritis organism: staphylococcal Qualified Code(s): M00.061 - Staphylococcal arthritis, right knee (4) Pleural effusion Current Visit: Yes Status: Acute Location: Bilateral. CT of the chest showed moderate to large right and moderate left pleural effusion with adjacent atelectasis and/or pneumonia notable at lung bases. Etiology unclear: reactive vs. infectious vs. other. Pulmonology consulted. Appreciate recommendations. Continue antibiotics as above. (5) Pneumonia Current Visit: Yes Status: Suspected Location: Bilateral bases. Causative organism: Unclear. CXR showed bilateral pleural effusions with bibasilar airspace disease, likely PNA. CT of the chest showed moderte to large right pleural effusion and moderate left pleural effusion with adjacent atelectasis and/or pneumonia notable at lung bases. Recommend pulmonary to evaluate. Check RIP.--> negative. Check S. pneumo and Legionella UATs.--> negative. Continue Zosyn 3.375 grams IV Q8H. (day 2) Continue Vancomycin IV. Pharmacy to dose. Goal trough ~15. Duration of treatment depends on the clinical picture. Monitor renal function and for drug toxicity and dose-adjust antibiotics. Qualifiers: Pneumonia type: due to unspecified organism Laterality: bilateral Lung location: unspecified part of lung Qualified Code(s): J18.9 - Pneumonia, unspecified organism (6) Altered mental status Current Visit: Yes Status: Resolved Likely secondary to sepsis. Improved. Continue to monitor closely. Qualifiers: Altered mental status type: unspecified Qualified Code(s): R41.82 - Altered mental status, unspecified (7) Shoulder subluxation, left Current Visit: Yes Status: Acute Noted on imaging. IR consulted and aspiration of the joint unsuccessful. Patient reports pain is improved. Orthopedics consulted. Qualifiers: Encounter type: initial encounter Qualified Code(s): S43.002A - Unspecified subluxation of left shoulder joint, initial encounter (8) Hyponatremia Current Visit: Yes Status: Acute (9) Calcium pyrophosphate arthropathy Current Visit: Yes Status: Acute Rheumatology consulted and signed off. Plan to follow up as outpatient. (10) Atrial fibrillation with RVR Current Visit: Yes Status: Resolved Liquids secondary to sepsis. Cardiology consulted and signed off. Rate controlled. (11) Oral lesion Current Visit: Yes Status: Acute Clinically, does not appear to be thrush. Concern for HSV. Check HSV PCR swab. - Subjective Interval history: Patient seen and examined with family at the bedside. No acute events noted overnight. Patient states overall she feels a little better today. She reports hurting "all over." She states she had some shortness of breath this morning, but denies cough or chest pain. She denies nausea, vomiting, or diarrhea. Denies abdominal pain. States she hasn't eaten breakfast yes this morning. Donohue catheter remains patent. States her mouth is sore. Denies new skin rashes. Infect Dis PN-Objective Data - Labs CBC & Chem 7: 04/17/18 03:45 04/17/18 03:45 Labs: Laboratory Results - last 24 hr 04/15/18 04/15/18 04/15/18 07:36 11:16 16:12 WBC RBC Hgb Hct MCV MCH MCHC RDW Plt Count MPV Immature Gran % Seg Neutrophils % Lymphocytes % Monocytes % Eosinophils % Basophils % Neutrophils # Lymphocytes # Monocytes # Eosinophils # Basophils # Heparin Anti-Xa, Unfract Sodium Potassium Chloride Carbon Dioxide BUN Creatinine Est GFR ( Amer) Est GFR (Non-Af Amer) BUN/Creatinine Ratio Glucose POC Glucose 206 H 250 H Calculated Osmolality Calcium B-Natriuretic Peptide Chlamy pneumoniae PCR Not Detected Adenovirus (PCR) Not Detected B. pertussis DNA (PCR) Not Detected B.parapertussis DNA PCR Not Detected Coronavirus OC43 (PCR) Not Detected Coronavirus HKU1 (PCR) Not Detected Coronavirus 229E (PCR) Not Detected Coronavirus NL63 (PCR) Not Detected Human Metapneumovir PCR Not Detected Influenza A (H1) PCR Not Detected Influ A (H1N1/09) PCR Not Detected Influenza A (H3) PCR Not Detected Influenza A Untype (PCR) Not Detected Influenza Type B (PCR) Not Detected M.pneumoniae DNA (PCR) Not Detected Parainfluenza 1 (PCR) Not Detected Parainfluenza 2 (PCR) Not Detected Parainfluenza 3 (PCR) Not Detected Parainfluenza 4 (PCR) Not Detected RSV (PCR) Not Detected Entero/Rhino (PCR) Not Detected Specimen Rejected 04/15/18 04/15/18 04/15/18 16:20 16:21 17:20 WBC RBC Hgb Hct MCV MCH MCHC RDW Plt Count MPV Immature Gran % Seg Neutrophils % Lymphocytes % Monocytes % Eosinophils % Basophils % Neutrophils # Lymphocytes # Monocytes # Eosinophils # Basophils # Heparin Anti-Xa, Unfract 0.25 L Sodium Potassium Chloride Carbon Dioxide BUN Creatinine Est GFR ( Amer) Est GFR (Non-Af Amer) BUN/Creatinine Ratio Glucose POC Glucose 214 H Calculated Osmolality Calcium B-Natriuretic Peptide Chlamy pneumoniae PCR Adenovirus (PCR) B. pertussis DNA (PCR) B.parapertussis DNA PCR Coronavirus OC43 (PCR) Coronavirus HKU1 (PCR) Coronavirus 229E (PCR) Coronavirus NL63 (PCR) Human Metapneumovir PCR Influenza A (H1) PCR Influ A (H1N1/09) PCR Influenza A (H3) PCR Influenza A Untype (PCR) Influenza Type B (PCR) M.pneumoniae DNA (PCR) Parainfluenza 1 (PCR) Parainfluenza 2 (PCR) Parainfluenza 3 (PCR) Parainfluenza 4 (PCR) RSV (PCR) Entero/Rhino (PCR) Specimen Rejected Volume 04/15/18 04/15/18 04/16/18 20:12 20:30 01:28 WBC 15.4 H RBC 3.25 L Hgb 9.5 L Hct 28.7 L MCV 88.3 MCH 29.2 MCHC 33.1 RDW 14.2 Plt Count 480 H MPV 10.6 Immature Gran % 3.8 Seg Neutrophils % 83.3 Lymphocytes % 8.5 Monocytes % 3.5 Eosinophils % 0.6 Basophils % 0.3 Neutrophils # 12.8 H Lymphocytes # 1.3 Monocytes # 0.5 Eosinophils # 0.1 Basophils # 0.0 Heparin Anti-Xa, Unfract Sodium Potassium Chloride Carbon Dioxide BUN Creatinine Est GFR ( Amer) Est GFR (Non-Af Amer) BUN/Creatinine Ratio Glucose POC Glucose 342 H Calculated Osmolality Calcium B-Natriuretic Peptide 219 H Chlamy pneumoniae PCR Adenovirus (PCR) B. pertussis DNA (PCR) B.parapertussis DNA PCR Coronavirus OC43 (PCR) Coronavirus HKU1 (PCR) Coronavirus 229E (PCR) Coronavirus NL63 (PCR) Human Metapneumovir PCR Influenza A (H1) PCR Influ A (H1N1/09) PCR Influenza A (H3) PCR Influenza A Untype (PCR) Influenza Type B (PCR) M.pneumoniae DNA (PCR) Parainfluenza 1 (PCR) Parainfluenza 2 (PCR) Parainfluenza 3 (PCR) Parainfluenza 4 (PCR) RSV (PCR) Entero/Rhino (PCR) Specimen Rejected 04/16/18 04/16/18 01:28 01:28 WBC RBC Hgb Hct MCV MCH MCHC RDW Plt Count MPV Immature Gran % Seg Neutrophils % Lymphocytes % Monocytes % Eosinophils % Basophils % Neutrophils # Lymphocytes # Monocytes # Eosinophils # Basophils # Heparin Anti-Xa, Unfract 0.59 Sodium 132 L Potassium 3.6 Chloride 101 Carbon Dioxide 25 BUN 21 Creatinine 0.43 L Est GFR ( Amer) > 60 Est GFR (Non-Af Amer) > 60 BUN/Creatinine Ratio 49 H Glucose 167 H POC Glucose Calculated Osmolality 281 Calcium 7.7 L B-Natriuretic Peptide Chlamy pneumoniae PCR Adenovirus (PCR) B. pertussis DNA (PCR) B.parapertussis DNA PCR Coronavirus OC43 (PCR) Coronavirus HKU1 (PCR) Coronavirus 229E (PCR) Coronavirus NL63 (PCR) Human Metapneumovir PCR Influenza A (H1) PCR Influ A (H1N1/09) PCR Influenza A (H3) PCR Influenza A Untype (PCR) Influenza Type B (PCR) M.pneumoniae DNA (PCR) Parainfluenza 1 (PCR) Parainfluenza 2 (PCR) Parainfluenza 3 (PCR) Parainfluenza 4 (PCR) RSV (PCR) Entero/Rhino (PCR) Specimen Rejected Cultures: Cultures 04/14/18 04:20 Blood Culture - Final Peripheral Venipuncture Methicillin Resistant S.aureus 04/14/18 04:20 Blood Culture - Final Peripheral Venipuncture Methicillin Resistant S.aureus 04/16/18 01:28 Blood Culture - Preliminary Peripheral Venipuncture Culture is incubating and being continuously monitored for growth. Final report to follow. 04/16/18 01:28 Blood Culture - Preliminary Peripheral Venipuncture Culture is incubating and being continuously monitored for growth. Final report to follow. 04/15/18 16:15 Legionella Antigen - Final Urine,Clean Catch Streptococcus pneumoniae Antigen (M - Final 04/13/18 05:46 Blood Culture - Final Peripheral Venipuncture Methicillin Resistant S.aureus 04/13/18 05:34 Blood Culture - Preliminary Peripheral Venipuncture Gram Positive Cocci - Clusters 04/11/18 18:25 Anaerobic Culture - Preliminary Right Knee At this time, no anaerobic growth is present. The culture will be finalized after 5 days of incubation. 04/11/18 18:25 Wound Culture - Final Right Knee Methicillin Resistant S.aureus 04/10/18 11:00 Blood Culture - Final Peripheral Venipuncture Methicillin Resistant S.aureus 04/10/18 11:10 Blood Culture - Final Peripheral Venipuncture Methicillin Resistant S.aureus 04/09/18 12:30 Body Fluid Culture - Final Synovial Fluid Methicillin Resistant S.aureus Serology 04/15/18 04/13/18 04/10/18 Range/Units 16:12 05:46 16:41 Ur Specimen Adequacy Urine Color (Yellow) Urine Clarity (Clear) Urine pH (5.0-8.0) pH Units Ur Specific [place] (1.010-1.025) Urine Protein (Neg-Trace) mg/dL Urine Glucose (UA) (Normal) mg/dL Urine Ketones (Negative) mg/dL Urine Blood (Negative) Urine Nitrite (Negative) Urine Bilirubin (Negative) Urine Urobilinogen (Normal) mg/dL Ur Leukocyte Esterase (Negative) Urine Microscopic RBC (0-3) per hpf Urine Microscopic WBC (0-3) per hpf Ur Squamous Epith Cells (None-Few) per lpf Urine Bacteria (None-Few) per hpf Hyaline Casts Ur Culture Indicated? (NO) Urine Osmolality 407 (300-1090) mOsm/kg Urine Sodium mEq/L Fluid Crystals (None Seen) Synovial Source Synovial Color (Straw) Synovial Appearance (Clear-Hazy) Synovial Volume mL Synovial RBC Synovial Tot Nuc Cell Synovial Band Neuts Synovial Basophils Synovial Eosinophils Synovial Seg Neuts % % Synovial Lymphocytes % % Synovial Monocytes % % Synovial Other Cells % A. baumannii (PCR) Not Detected (Not Detect) Chlamy pneumoniae PCR Not Detected (Not Detect) Adenovirus (PCR) Not Detected (Not Detect) B. pertussis DNA (PCR) Not Detected (Not Detect) B.parapertussis DNA PCR Not Detected (Not Detect) Kirti albicans (PCR) Not Detected (Not Detect) C. glabrata (PCR) Not Detected (Not Detect) C. krusei (PCR) Not Detected (Not Detect) C. parapsilosis (PCR) Not Detected (Not Detect) C. tropicalis (PCR) Not Detected (Not Detect) Coronavirus OC43 (PCR) Not Detected (Not Detect) Coronavirus HKU1 (PCR) Not Detected (Not Detect) Coronavirus 229E (PCR) Not Detected (Not Detect) Coronavirus NL63 (PCR) Not Detected (Not Detect) Enterobacteriac sp PCR Not Detected (Not Detect) E. cloacae complex PCR Not Detected (Not Detect) Enterococcus sp PCR Not Detected (Not Detect) E. coli (PCR) Not Detected (Not Detect) H. influenzae (PCR) Not Detected (Not Detect) Human Metapneumovir PCR Not Detected (Not Detect) Influenza A (H1) PCR Not Detected (Not Detect) Influ A (H1N1/09) PCR Not Detected (Not Detect) Influenza A (H3) PCR Not Detected (Not Detect) Influenza A Untype (PCR) Not Detected (Not Detect) Influenza Type B (PCR) Not Detected (Not Detect) Klebsiella oxytoca PCR Not Detected (Not Detect) Klebsiella pneumoniae Not Detected (Not Detect) List. monocytogenes PCR Not Detected (Not Detect) M.pneumoniae DNA (PCR) Not Detected (Not Detect) N. meningitidis (PCR) Not Detected (Not Detect) Parainfluenza 1 (PCR) Not Detected (Not Detect) Parainfluenza 2 (PCR) Not Detected (Not Detect) Parainfluenza 3 (PCR) Not Detected (Not Detect) Parainfluenza 4 (PCR) Not Detected (Not Detect) Proteus species (PCR) Not Detected (Not Detect) RSV (PCR) Not Detected (Not Detect) Entero/Rhino (PCR) Not Detected (Not Detect) Serratia marcescens PCR Not Detected (Not Detect) Staphylococcus sp PCR DETECTED A (Not Detect) Staph aureus (PCR) DETECTED A (Not Detect) mecA-Methicil Res Gene DETECTED A (Not Detect) Streptococcus sp PCR Not Detected (Not Detect) Group A Strep DNA Not Detected (Not Detect) Group B Strep (PCR) Not Detected (Not Detect) Strep pneumoniae (PCR) Not Detected (Not Detect) P. aeruginosa (PCR) Not Detected (Not Detect) [place]/B-Vanco Res Genes N/A (Not Detect) KPC (blaKPC) Detect PCR N/A (Not Detect) 04/10/18 04/10/18 04/09/18 Range/Units 16:41 11:10 12:30 Ur Specimen Adequacy Urine Color (Yellow) Urine Clarity (Clear) Urine pH (5.0-8.0) pH Units Ur Specific [place] (1.010-1.025) Urine Protein (Neg-Trace) mg/dL Urine Glucose (UA) (Normal) mg/dL Urine Ketones (Negative) mg/dL Urine Blood (Negative) Urine Nitrite (Negative) Urine Bilirubin (Negative) Urine Urobilinogen (Normal) mg/dL Ur Leukocyte Esterase (Negative) Urine Microscopic RBC (0-3) per hpf Urine Microscopic WBC (0-3) per hpf Ur Squamous Epith Cells (None-Few) per lpf Urine Bacteria (None-Few) per hpf Hyaline Casts Ur Culture Indicated? (NO) Urine Osmolality (300-1090) mOsm/kg Urine Sodium 21.3 mEq/L Fluid Crystals (None Seen) Synovial Source RIGHT KNEE Synovial Color Straw (Straw) Synovial Appearance Cloudy A (Clear-Hazy) Synovial Volume 8.0 mL Synovial RBC TNP Synovial Tot Nuc Cell TNP Synovial Band Neuts Test Not Performed Synovial Basophils Test Not Performed Synovial Eosinophils Test Not Performed Synovial Seg Neuts % 2.0 % Synovial Lymphocytes % 84.0 % Synovial Monocytes % 14.0 % Synovial Other Cells % Test Not Performed A. baumannii (PCR) Not Detected (Not Detect) Chlamy pneumoniae PCR (Not Detect) Adenovirus (PCR) (Not Detect) B. pertussis DNA (PCR) (Not Detect) B.parapertussis DNA PCR (Not Detect) Kirti albicans (PCR) Not Detected (Not Detect) C. glabrata (PCR) Not Detected (Not Detect) C. krusei (PCR) Not Detected (Not Detect) C. parapsilosis (PCR) Not Detected (Not Detect) C. tropicalis (PCR) Not Detected (Not Detect) Coronavirus OC43 (PCR) (Not Detect) Coronavirus HKU1 (PCR) (Not Detect) Coronavirus 229E (PCR) (Not Detect) Coronavirus NL63 (PCR) (Not Detect) Enterobacteriac sp PCR Not Detected (Not Detect) E. cloacae complex PCR Not Detected (Not Detect) Enterococcus sp PCR Not Detected (Not Detect) E. coli (PCR) Not Detected (Not Detect) H. influenzae (PCR) Not Detected (Not Detect) Human Metapneumovir PCR (Not Detect) Influenza A (H1) PCR (Not Detect) Influ A (H1N1/09) PCR (Not Detect) Influenza A (H3) PCR (Not Detect) Influenza A Untype (PCR) (Not Detect) Influenza Type B (PCR) (Not Detect) Klebsiella oxytoca PCR Not Detected (Not Detect) Klebsiella pneumoniae Not Detected (Not Detect) List. monocytogenes PCR Not Detected (Not Detect) M.pneumoniae DNA (PCR) (Not Detect) N. meningitidis (PCR) Not Detected (Not Detect) Parainfluenza 1 (PCR) (Not Detect) Parainfluenza 2 (PCR) (Not Detect) Parainfluenza 3 (PCR) (Not Detect) Parainfluenza 4 (PCR) (Not Detect) Proteus species (PCR) Not Detected (Not Detect) RSV (PCR) (Not Detect) Entero/Rhino (PCR) (Not Detect) Serratia marcescens PCR Not Detected (Not Detect) Staphylococcus sp PCR DETECTED A (Not Detect) Staph aureus (PCR) DETECTED A (Not Detect) mecA-Methicil Res Gene DETECTED A (Not Detect) Streptococcus sp PCR Not Detected (Not Detect) Group A Strep DNA Not Detected (Not Detect) Group B Strep (PCR) Not Detected (Not Detect) Strep pneumoniae (PCR) Not Detected (Not Detect) P. aeruginosa (PCR) Not Detected (Not Detect) [place]/B-Vanco Res Genes N/A (Not Detect) KPC (blaKPC) Detect PCR N/A (Not Detect) 04/09/18 04/06/18 Range/Units 12:30 11:55 Ur Specimen Adequacy See below A Urine Color Yellow (Yellow) Urine Clarity Clear (Clear) Urine pH 5.5 (5.0-8.0) pH Units Ur Specific [place] 1.014 (1.010-1.025) Urine Protein 30 H (Neg-Trace) mg/dL Urine Glucose (UA) 250 H (Normal) mg/dL Urine Ketones Negative (Negative) mg/dL Urine Blood Small H (Negative) Urine Nitrite Negative (Negative) Urine Bilirubin Negative (Negative) Urine Urobilinogen Normal (Normal) mg/dL Ur Leukocyte Esterase Negative (Negative) Urine Microscopic RBC 5-15 H (0-3) per hpf Urine Microscopic WBC 0-3 (0-3) per hpf Ur Squamous Epith Cells Many H (None-Few) per lpf Urine Bacteria None Seen (None-Few) per hpf Hyaline Casts Test Not Performed Ur Culture Indicated? NO (NO) Urine Osmolality (300-1090) mOsm/kg Urine Sodium mEq/L Fluid Crystals CPPD Crystals Seen A (None Seen) Synovial Source Synovial Color (Straw) Synovial Appearance (Clear-Hazy) Synovial Volume mL Synovial RBC Synovial Tot Nuc Cell Synovial Band Neuts Synovial Basophils Synovial Eosinophils Synovial Seg Neuts % % Synovial Lymphocytes % % Synovial Monocytes % % Synovial Other Cells % A. baumannii (PCR) (Not Detect) Chlamy pneumoniae PCR (Not Detect) Adenovirus (PCR) (Not Detect) B. pertussis DNA (PCR) (Not Detect) B.parapertussis DNA PCR (Not Detect) Kirti albicans (PCR) (Not Detect) C. glabrata (PCR) (Not Detect) C. krusei (PCR) (Not Detect) C. parapsilosis (PCR) (Not Detect) C. tropicalis (PCR) (Not Detect) Coronavirus OC43 (PCR) (Not Detect) Coronavirus HKU1 (PCR) (Not Detect) Coronavirus 229E (PCR) (Not Detect) Coronavirus NL63 (PCR) (Not Detect) Enterobacteriac sp PCR (Not Detect) E. cloacae complex PCR (Not Detect) Enterococcus sp PCR (Not Detect) E. coli (PCR) (Not Detect) H. influenzae (PCR) (Not Detect) Human Metapneumovir PCR (Not Detect) Influenza A (H1) PCR (Not Detect) Influ A (H1N1/09) PCR (Not Detect) Influenza A (H3) PCR (Not Detect) Influenza A Untype (PCR) (Not Detect) Influenza Type B (PCR) (Not Detect) Klebsiella oxytoca PCR (Not Detect) Klebsiella pneumoniae (Not Detect) List. monocytogenes PCR (Not Detect) M.pneumoniae DNA (PCR) (Not Detect) N. meningitidis (PCR) (Not Detect) Parainfluenza 1 (PCR) (Not Detect) Parainfluenza 2 (PCR) (Not Detect) Parainfluenza 3 (PCR) (Not Detect) Parainfluenza 4 (PCR) (Not Detect) Proteus species (PCR) (Not Detect) RSV (PCR) (Not Detect) Entero/Rhino (PCR) (Not Detect) Serratia marcescens PCR (Not Detect) Staphylococcus sp PCR (Not Detect) Staph aureus (PCR) (Not Detect) mecA-Methicil Res Gene (Not Detect) Streptococcus sp PCR (Not Detect) Group A Strep DNA (Not Detect) Group B Strep (PCR) (Not Detect) Strep pneumoniae (PCR) (Not Detect) P. aeruginosa (PCR) (Not Detect) [place]/B-Vanco Res Genes (Not Detect) KPC (blaKPC) Detect PCR (Not Detect) - Impressions Impressions Chest CT 04/15/18 10:30 IMPRESSION: 1. Moderate to large right pleural effusion and moderate left pleural effusion with adjacent atelectasis and/or pneumonia notable at lung bases. 2. Peribronchial thickening suggestive of peribronchial inflammation. 3. Pulmonary vascular congestion. 4. Noncalcified nodule located in right lower lobe measures 5 mm and nodule located in right upper lobe measures approximately 4 mm. Continued follow-up recommended as clinically indicated based on patient risk factors. 5. Multiple prominent mediastinal lymph nodes. 6. Generalized body wall edema. D/ / Earle Rodriguez / Earle Rodriguez Interpreting Provider: Earle Rodriguez Exam - Constitutional Vitals: Temp Pulse Resp BP Pulse Ox 99.4 F 92 15 112/78 99 04/16/18 07:42 04/16/18 09:26 04/16/18 08:58 04/16/18 08:58 04/16/18 08:58 General appearance: cooperative, no acute distress, obese - Head Head exam: Present: atraumatic, normal inspection, normocephalic - Eye Eye exam: Present: EOMI, normal appearance, PERRL Pupils: Present: normal accommodation Additional comments: No subconjunctival hemorrhage noted. - ENT ENT exam: Present: mucous membranes moist Additional comments: Vesicular lesions noted to the tongue. - Neck Neck exam: Present: normal inspection - Respiratory Respiratory exam: Present: CTAB. Absent: rales, respiratory distress, rhonchi, wheezes - Cardiovascular Cardiovascular exam: Present: RRR, +S1, +S2 - GI/Abdominal GI/Abdominal exam: Present: normal bowel sounds, soft. Absent: distended, tenderness Additional comments: Donohue catheter noted to be draining clear yellow urine. - Extremities Exam Extremities exam: Present: joint swelling (mild bilateral knees.), pedal edema (1+ BLE), tenderness (bilateral knees). Absent: normal inspection (Right knee surgical sites are intact with sutures and steri-strips. No erythema. Bilateral knees are painful to touch, but no warmth or erythema noted.) - Back Exam Additional comments: Deferred per patient request. - Neurological Exam Neurological exam: Present: alert, oriented X3, no focal deficits - Psychiatric Psychiatric exam: Present: normal affect, normal mood - Skin Skin exam: Present: dry, intact, normal color, warm Consult Discharge Plan - Plan Referrals: iMsael Lopez MD [Non-Partnered Physician] - (Patient is going to rehab no PCP appointment needed) Prescriptions: Apixaban [Eliquis] 5 mg PO BID 30 Days #60 tablet - Attending Attestation I examined this patient and my medical decision-making was reviewed with the Resident Physician. I agree with the documented findings, disposition and treatment plan as described except to the extent set forth below.
[2018-04-16] MEDS: Furosemide 20 MG/2 ML VIAL IVP SCH ×2 (10:38→16:39)
[2018-04-16 13:33] LABS: HSV 2 DNA Not Detected (Not Detect)
[2018-04-16 13:52] LABS: HSV 1 DNA DETECTED (Not Detect)
[2018-04-16] MEDS: valACYclovir 500 MG TABLET PO SCH (16:39)
--- NOTE | 2018-04-16 17:07 | Orthopedics Progress Note ---
Date of Encounter: 04/16/18 Time of Encounter: 18:00 - Assessment and Plan (1) Septic arthritis of knee, right Current Visit: Yes Status: Acute POD#5 - Right Knee I&D Assessment and plan: Continue with postoperative care Doppler RLE NEGATIVE May consider IR aspiration of LEFT knee if symptoms persist Continue IV antibiotics per IDs recommendation ESR/CRP needed Left Shoulder: Recommend MRI outpatient as needed, IR aspiration - no fluid obtained; Continue with gentle hand and wrist ROM to improve swelling 04/14 - Left upper extremity venous duplex appears to be positive for at acute DVT in the left brachial and radial veins. Qualifiers: Septic arthritis organism: staphylococcal Qualified Code(s): M00.061 - Staphylococcal arthritis, right knee (2) Bacteremia Current Visit: Yes Status: Acute (3) Shoulder subluxation, left Current Visit: Yes Status: Acute Qualifiers: Encounter type: initial encounter Qualified Code(s): S43.002A - Unspecified subluxation of left shoulder joint, initial encounter (4) Arthritis of right knee Current Visit: Yes Status: Acute Subjective Principal diagnosis: Right Septic Knee Interval history: Patient was seen this morning, POD#5 Right Knee Arthoscopic I&D 04/11/18 Patient reporting continue general malaise, DX with bilateral pleural effusions and pneumonia with pulm consulted - bilateral pleural effusions are hydrostatic pulmonary edema secondary to atrial fibrillation acutely with use of continuous crystalloid infusion now on hold. Plan to continue gentle diuresis as tolerated very patient comfortable no immediate need for thoracentesis at this time. Reports multi-joint pain and ache continues, in particularly with her LEFT knee. No increased pain to Right knee. PTOT today. Doppler 04/15: Normal right lower extremity deep and superficial venous exam. Normal contralateral common femoral vein. Noted fever improved Patient Weight 04/15/18 23:59 Weight 78.5 kg WBC improved Operative extremity: Sutures intact, steri-strips in place. C/D/I. Mild Effusion noted, no erythema, no drainage. +Calf tenderness NV intact distally Left knee: Moderate effusion noted No erythema, abrasions or obvious deformity Painful with PROM and limited AROM seconedary to fluid overload and pain NV intact distally Left Shoulder: 04/14 - Left upper extremity venous duplex appears to be positive for at acute DVT in the left brachial and radial veins. No effusion, swelling noted into arm and lower arm Shoulder ROM - unable to complete due to pain NV intact Finger swelling and stiffness noted Assessment and plan: Continue with postoperative care Doppler RLE NEGATIVE May consider IR aspiration of LEFT knee if symptoms persist Continue IV antibiotics per IDs recommendation ESR/CRP needed Left Shoulder: Recommend MRI outpatient as needed, IR aspiration - no fluid obtained; Continue with gentle hand and wrist ROM to improve swelling 04/14 - Left upper extremity venous duplex appears to be positive for at acut e DVT in the left brachial and radial veins. F/up appt set and faxed to floor. Objective Vital signs: Vital Signs Temp Pulse Resp BP Pulse Ox 04/16/18 16:51 104 04/16/18 16:27 98.8 F 104 16 117/75 100 04/16/18 11:43 99.5 F 95 16 113/59 100 04/16/18 10:58 92 04/16/18 09:26 92 04/16/18 08:58 15 112/78 99 04/16/18 07:42 99.4 F 95 18 112/78 100 04/16/18 04:36 98.2 F 90 18 104/63 100 04/16/18 04:34 98.2 F 90 18 104/63 100 04/16/18 00:44 98.1 F 92 18 103/53 100 04/16/18 00:32 98.1 F 90 18 103/53 100 04/15/18 22:58 18 100 04/15/18 20:30 100 18 121/65 100 04/15/18 19:19 99.7 F H 100 18 121/65 100 Intake and Output 04/16/18 04/16/18 04/16/18 07:59 15:59 23:59 Intake Total 677 / 677 800 / 800 Output Total 1200 / 1200 1350 / 1350 Balance -523 / -523 -550 / -550 Intake: IV Fluids 677 / 677 800 / 800 Heparin 25,000 UNIT/500 ML D5W 327 / 327 450 / 450 25,000 unit In 500 ml @ 14 UNIT /KG/HR 18.676 mls/hr IVC .Q24H [facility] Rx#:[id number] Zosyn 3.375 GM In 0.9 % Sodium 100 / 100 100 / 100 Chloride (Mini-Bag +) 100 ML @ 25 mls/hr IVPB Q8HR [facility] Rx#: [id number] Vancocin 750 MG In 0.9 % Sodium 250 / 250 250 / 250 Chloride 250 ML @ 250 mls/hr IVPB Q12H [facility] Rx#:[id number] Output: Urine 1200 / 1200 1350 / 1350 Other: Weight 79.5 kg Blood Glucose* 83 159 222 Patient Weight 04/16/18 23:59 Weight 79.5 kg - Labs CBC & BMP: 04/17/18 15:16 04/17/18 03:45 Labs: Abnormal lab results WBC 15.4 K/mcL (4.3-11.1) H 04/16/18 01:28 RBC 3.25 M/mcL (3.82-4.97) L 04/16/18 01:28 Hgb 9.5 g/dL (11.5-15.4) L 04/16/18 01:28 Hct 28.7 % (35.3-44.9) L 04/16/18 01:28 Plt Count 480 K/mcL (140-400) H 04/16/18 01:28 Band Neutrophils % 6.0 % (0-4) H 04/13/18 05:34 Neutrophils # 12.8 K/mcL (1.6-8.9) H 04/16/18 01:28 Toxic Granulation Present (Not Present) A 04/12/18 16:20 Large Platelets Present (Not Present) A 04/13/18 05:34 Immature Plt Fraction 13.2 % (1.1-6.1) H 04/10/18 03:56 Anisocytosis 1+ (Not Present) A 04/13/18 05:34 ESR 85 mm/hr (0-15) H 04/15/18 04:14 D-Dimer 5840 ng/mLFEU (0-500) H 04/10/18 11:00 VBG pCO2 33 mmHg (41-51) L 04/06/18 10:45 VBG pO2 84 mmHg (25-50) H 04/06/18 10:45 Sodium 132 mEq/L (136-145) L 04/16/18 01:28 Creatinine 0.43 mg/dL (0.60-1.20) L 04/16/18 01:28 BUN/Creatinine Ratio 49 (6-26) H 04/16/18 01:28 Glucose 167 mg/dL (70-105) H 04/16/18 01:28 POC Glucose 342 mg/dL (70-99) H 04/15/18 20:30 Hemoglobin A1c 7.8 % (-5.6) H 04/06/18 10:31 Calcium 7.7 mg/dL (8.6-10.3) L 04/16/18 01:28 Phosphorus 2.5 mg/dL (2.7-4.5) L 04/07/18 03:31 Alkaline Phosphatase 260 Units/L (34-104) H 04/15/18 04:14 Creatine Kinase 22 Units/L (30-223) L 04/06/18 13:46 C-Reactive Protein 137 mg/L (Less than 10) H 04/15/18 04:14 B-Natriuretic Peptide 219 pg/mL (Less than 100) H 04/15/18 20:12 Serum Total Protein 4.8 g/dL (6.4-8.9) L 04/15/18 04:14 Albumin 1.7 g/dL (3.5-5.7) L 04/15/18 04:14 Albumin/Globulin Ratio 0.5 (1.1-2.2) L 04/15/18 04:14 TSH 0.248 mcIU/mL (0.340-5.600) L 04/06/18 10:31 Ur Specimen Adequacy See below A 04/06/18 11:55 Urine Protein 30 mg/dL (Neg-Trace) H 04/06/18 11:55 Urine Glucose (UA) 250 mg/dL (Normal) H 04/06/18 11:55 Urine Blood Small (Negative) H 04/06/18 11:55 Urine Microscopic RBC 5-15 per hpf (0-3) H 04/06/18 11:55 Ur Squamous Epith Cells Many per lpf (None-Few) H 04/06/18 11:55 Fluid Crystals CPPD Crystals Seen (None Seen) A 04/09/18 12:30 Synovial Appearance Cloudy (Clear-Hazy) A 04/09/18 12:30 Vancomycin Trough 14 mcg/mL (5-10) H 04/15/18 09:17 Urine Opiates Screen Positive ng/mL (Dmpzdz=264) H 04/06/18 11:54 HSV I DETECTED (Not Detect) A 04/16/18 10:40 Staphylococcus sp PCR DETECTED (Not Detect) A 04/13/18 05:46 Staph aureus (PCR) DETECTED (Not Detect) A 04/13/18 05:46 mecA-Methicil Res Gene DETECTED (Not Detect) A 04/13/18 05:46 Consult Discharge Plan - Plan Referrals: Misael Lopez MD [Non-Partnered Physician] - (Patient is going to rehab no PCP appointment needed) Prescriptions: Apixaban [Eliquis] 5 mg PO BID 30 Days #60 tablet
[2018-04-16] MEDS: Insulin DETEMIR 100 UNIT/ML X5UNITS SQ SCH (22:00)
[2018-04-16 23:10] LABS: Acinetobacter baumannii by PCR Not Detected (Not Detect); Candida albicans by PCR Not Detected (Not Detect); Candida glabrata by PCR Not Detected (Not Detect); Candida krusei by PCR Not Detected (Not Detect); Candida parapsilosis by PCR Not Detected (Not Detect); Candida tropicalis by PCR Not Detected (Not Detect); Enterobacter cloacae Cmplx PCR Not Detected (Not Detect); Enterobacteriaceae by PCR Not Detected (Not Detect); Enterococcus by PCR Not Detected (Not Detect); Escherichia coli by PCR Not Detected (Not Detect); Klebsiella oxytoca by PCR Not Detected (Not Detect); Klebsiella pneumoniae by PCR Not Detected (Not Detect); Proteus by PCR Not Detected (Not Detect); Pseudomonas aeruginosa by PCR Not Detected (Not Detect); Serratia marcescens by PCR Not Detected (Not Detect); Staphylococcus aureus by PCR DETECTED (Not Detect); Staphylococcus by PCR DETECTED (Not Detect); Streptococcus agalactiae(B)PCR Not Detected (Not Detect); Streptococcus by PCR Not Detected (Not Detect); Streptococcus pneumoniae PCR Not Detected (Not Detect); Streptococcus pyogenes (A) PCR Not Detected (Not Detect); blaKPC Carbapenem-Resist Gene Not Detected (Not Detect); mecA Methicillin-Resist Gene DETECTED (Not Detect); vanA/B Vancomycin-Resist Genes Not Detected (Not Detect)
[2018-04-17] MEDS: Piperacillin/Tazobactam 3.375 GM in 0.9 % Sodium Chloride Mini Bag 100 ML IVPB SCH ×3 (00:20→16:53)
[2018-04-17] MEDS: Heparin 25,000 UNIT/500 ML D5W 25,000 UNIT/500 ML BAG IVC SCH ×2 (00:49→11:12)
[2018-04-17] MEDS: Acetaminophen 325 MG TABLET PO PRN ×2 (01:12→18:56)
[2018-04-17] MEDS: *HR* OxyCODONE Immed Rel 5 MG TABLET PO PRN ×6 (02:45→22:46)
[2018-04-17] MEDS: valACYclovir 500 MG TABLET PO SCH ×2 (03:45→14:53)
[2018-04-17 04:19] LABS: Basophils % 0.1 %; Eosinophils # 0.1 K/mcL (0.0-0.6); Eosinophils % 0.6 %; Hemoglobin 8.3 g/dL (11.5-15.4); Immature Granulocytes % 1.5 % (0-4); Lymphocytes # 1.1 K/mcL (0.6-4.6); Lymphocytes % 9.5 %; Mean Corpuscular HGB Conc 33.2 g/dL (31.6-35.5); Mean Corpuscular Volume 87.4 fL (83.0-100.0); Mean Platelet Volume 10.3 fL (9.4-12.4); Monocytes # 0.6 K/mcL (0.0-1.3); Monocytes % 4.8 %; Neutrophils # 10.1 K/mcL (1.6-8.9); Platelet Count 560 K/mcL (140-400); Red Blood Count 2.86 M/mcL (3.82-4.97); Red Cell Distribution Width 14.6 % (11.5-14.5); Segmented Neutrophils % 83.5 %
[2018-04-17 04:36] LABS: BUN/Creatinine Ratio 33 (6-26); Blood Urea Nitrogen 16 mg/dL (8-23); Calcium 7.7 mg/dL (8.6-10.3); Carbon Dioxide 27 mEq/L (23-29); Chloride 96 mEq/L (98-107); Glucose 186 mg/dL (70-105); Osmolality,Calculated 276 (280-300); Potassium 3.2 mEq/L (3.5-5.1); Sodium 130 mEq/L (136-145); eGFR For Non-African Americans > 60 (> 60)
[2018-04-17 07:08] LABS: VBG Ionized Calcium 1.14 mmol/L (1.15-1.35)
[2018-04-17] MEDS: Budesonide/Formoterol 160/4.5 1 PUFF INH IH SCH ×2 (07:46→21:39)
[2018-04-17] MEDS: traMADol 50 MG TABLET PO SCH (08:58)
[2018-04-17] MEDS: Metoprolol XL (24 HR) Succ 25 MG TAB.ER.24H PO SCH (08:59)
[2018-04-17] MEDS: Furosemide 20 MG/2 ML VIAL IVP SCH ×2 (09:00→16:52)
[2018-04-17] MEDS: Multivit/Ca/Min/Fe/FA 1 TAB TABLET PO SCH (09:04)
[2018-04-17] MEDS: Insulin LISPRO 300 UNITS/3 ML VIAL SQ SCH ×4 (10:18→20:40)
[2018-04-17] MEDS: Nystatin SUSP 5 ML UD.LIQ PO SCH ×4 (10:22→19:57)
--- NOTE | 2018-04-17 10:47 | Internal Med Progress Note ---
Addendum entered and electronically signed by Joseph Arciniega MD 04/17/18 15:30: I examined this patient and my medical decision-making was reviewed with the Resident Physician. I agree with the documented findings, disposition and treatment plan as described except to the extent set forth below. Addendum entered and electronically signed by Levar Oneil 04/17/18 14:24: Spoke with rhaumatology , they don't feel further workup is warranted at this time Original Note: <Levar Oneil - Last Filed: 04/17/18 11:16> Hospitalist Progress Note - Encounter Date of Encounter: 04/17/18 Time of Encounter: 08:54 - Subjective Interval History: Pt is seen at the bedside. She is hospital day 11. The pt was admitted with c/o left shoulder and right knee pain on 04/06. She had been experiencing increasing pain over the last 6mos and was unable to complete her ADLs due to the worsening joint pain. The pt family reported intermittent episodes of confusion. Ortho was consulted to see the pt and they recommended outpatient management with PTOT and sports medicine. They recommended rheumatology consult. The pt then experienced A fib with RVR and was put on IV heparin anticoagulation as per cardiology and lopressor. - currently the pt has beta blockers held 2/2 hypotension Rheumatology saw the pt on 04/10 after a rigth knee arthrocentesis was performed . 10cc yellow, purulent fluid was obtained and fluid analysis showed CPPD crystals and g(+) cocci. -ortho and rheumatology discussed the case and the pt was brought to the OR for arthroscopy on 04/1104/15/18 - Pulmonology consulted for b/l pleural effusions, pt opted to try diuresis instead of an invasive procedure. The pt reports some discomfort in her arm, which is same as yesterday. She denies CP, SOB, N/V/D. She does have pain in her lower back and neck. Her left knee is bothering her. - Exam Vitals: Temp Pulse Resp BP Pulse Ox 99.2 F 83 18 105/51 92 04/17/18 07:54 04/17/18 07:54 04/17/18 03:30 04/17/18 07:54 04/17/18 07:54 Exam: Constitutional: Alert and oriented 3, highly distressed secondary to pain HEENT: Normocephalic, atraumatic, moist mucus membranes Heart: Regular rhythm, no murmurs, no edema Lungs: lungs clear and equal bilaterally, no rhonchi, no wheeze Abdomen: Soft, normal bowel sounds, no rigidity Extremities: erythema noted at B/L knees, left knee swollen, no shoulder pain elicited upon palpation, no calf tenderness, nonpitting edema of the left upper extremity has improved, lt hand swollen Skin: warm and dry, no lesions, no rashes, no jaundice Psych: thought content congruent, normal mood and normal affect Neurological: Alert and oriented x 3 - Assessment and Plan (1) Sepsis Current Visit: Yes Status: Acute Assessment and Plan: Likely secondary to septic joint Blood cx (+) for MRSA, wound cx (+) for MRSA, repeat blood cx resulted 04/14 and was positive for g(+) cocci and 04/16 (+) for g (+) cocci WBC count 10.3 on admission ---> on 04/14 WBC count 16.4 ----> 04/15 WBC count 17.6 - Pt currently meets sepsis criteria HR 102 overnight, currently 93 t 100.4, tmax overnigh 101.2 Elevated white count at 12 - 04/11/18 underwent right knee arthroscopy irrigation debridement - medial and lateral menisci were evaluated. No tear of the medial or lateral meniscus was identified. - ACL and PCL w/o pathology. - right knee arthrocentesis was performed on 04/09 --- 10cc yellow, purulent fluid was obtained and fluid analysis showed CPPD crystals and g(+) cocci. - Ortho plans to consult IR for aspiration drain left knee today if s/s persisted until today Plan: - Vancomycin day 8, zosyn day 3 -ID following As per ID, will most likely need 4-6 wks of abx tx Plan for midline or PICC placement when closer to discharge - Ortho following - ESR/ CRP pending - re-consult rheumatology (2) Pneumonia Current Visit: Yes Status: Suspected Assessment and Plan: Pt has been having temperature spikes, overnight t max was 100.5 -WBC count elevated on 04/14: 16.4 ---> 04/15: 17.6 -White count 04/16 is 15.4 - white count 04/17 12 - CXR on 04/14/18 showed bilateral effusions with bibasilar airspace disease - CT scan of chest showed Mod/large right pleural effusion, mod left pleural effusion w/ adjacent atelectasis or pneumonia at the bases Pulmonary vascular congestion - Blood cx showed g(+) cocci - Pt currently meets sepsis criteria HR 102 overnight, currently 93 t 100.4, tmax overnigh 101.2 Elevated white count Source of infxn = blood (+) for gram positive cocci Repeat blood cx 04/16 (+) for gram positive cocci Plan: - continue vancomycin day 8, Zosyn day 3 - ID following - pt is getting Lasix 20mg IVP BID for pulmonary vascular congestion; will not perform thoracentesis as per pulmonology unless breathing status deteroirates Pulmonology signed off - follow cbc/cmp (3) Deep venous thrombosis of left upper extremity Current Visit: Yes Status: Acute Assessment and Plan: Pt has been reporting LUE pain -US ordered 04/14 revealed DVT in the left brachial and radial veins of the LUE Plan: - continue heparin drip - will speak to pharmacy about transitioning to eliquis and continuing anticoagulation after discharge (4) Anemia Current Visit: Yes Status: Acute Assessment and Plan: May be 2/2 to sepsis Hemoglobin trending down. -admission hemoglobin 11.3 ---> 10.9 ---> 8.6 ---> 8.5 ----> 04/14/18 hemoglobin 7.3 -currently on heparin drip - pt was given 1 unit of RBC 04/14, hgb improved to 9, was 9.5 on 04/16 04/17 - hemoglobin 8.3 Plan: - FOBT pending - continue to monitor cbc - check H&H in 6hr (5) Atrial fibrillation with RVR Current Visit: Yes Status: Resolved Assessment and Plan: New onset A fib RVR -cardiology consulted and signed off -Troponin <0.03 x 2 -ECHO on 04/10 showed LVEF 65-70%, normal LV systolic and diastolic fxn, no significant valvular dysfxn Currently in sinus rhythm, HR 83 -CHADVASc of 4 Plan: - amiodarone drip d/c as per cardiology - Lopressor 25mg PO adal as per cardiology - on Heparin drip as per protocol, pt had run of A fib RVR 04/13 as per nursing staff - on telemetry (6) Shoulder subluxation, left Current Visit: Yes Status: Acute Assessment and Plan: Pt pain improving Shoulder XR on 04/07 - Severe left glenohumeral joint osteoarthritic degenerative changes with large marginal osteophytes, subchondral changes and bony remottling. - Calcification, no acute fx or dislocation Plan: - PTOT as toleration - pain control with oxcodone - ice as needed - pt had IR guided fluorscopy 5 days ago , no fluid was aspirated - rheumatology following - medrol dose pack and flexaril ordered; as per rheum will hold off on medrol (7) Arthritis of right knee Current Visit: Yes Status: Acute Assessment and Plan: Pt has hx of severe OA, fam hx of rheumatoid arthritis Ortho plans to consult IR for lt knee aspiration today Plan: - right knee arthroscopy irrigation and debridement with Dr. Fournier 5 days ago - joint aspiration cultures positive for gram-positive cocci, repeat blood cx showed g(+) cocci - vancomycin day 8 - zosyn day 3 (8) Type 1 diabetes Current Visit: Yes Status: Acute Assessment and Plan: Glucose this morning 186 -continue determir, increased to 15U -continue sliding scale as per protocol (9) Hyponatremia Current Visit: Yes Status: Acute Assessment and Plan: Sodium this morning 130 Plan: - discontinue 75cc/hr 0.9% NS - lisinopril and HCTZ held - check BMP in the morning (10) Abnormal TSH Current Visit: Yes Status: Acute Assessment and Plan: TSH 0.248 -FT4 1.25, FT3 3.11 -likely subclinical hypothyroidism -follow up outpatient (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 Plan: - Replaced with oral supplement - continue to monitor electrolytes (14) DVT prophylaxis Current Visit: Yes Status: Acute Assessment and Plan: on heparin drip (15) Acute respiratory failure Current Visit: Yes Status: Acute Assessment and Plan: See plan as above for pneumonia. - pt unable to tolerate lowering oxygen - 92% on 2L oxygen DVT Prophylaxis: heparin drip - Time Spent with Patient Total time spent is greater than 50% in coordination of care (as documented) at patient's floor/unit and/or counseling patient: less than 15 minutes Plan of Care Discussed with: patient Internal Medicine: Result - Labs CBC & Chem 7: 04/17/18 03:45 04/17/18 03:45 Labs: Short CBC 04/17/18 Range/Units 03:45 WBC 12.0 H (4.3-11.1) K/mcL Hgb 8.3 L (11.5-15.4) g/dL Hct 25.0 L (35.3-44.9) % Plt Count 560 H (140-400) K/mcL Neutrophils # 10.1 H (1.6-8.9) K/mcL BMP 04/17/18 03:45 Sodium 130 L Potassium 3.2 L Chloride 96 L Carbon Dioxide 27 BUN 16 Creatinine 0.48 L Glucose 186 H Calcium 7.7 L - ABG Interpretation ABG results: PT/INR, D-dimer PT 12.1 Seconds (9.4-12.1) 04/11/18 11:35 D-Dimer 5840 ng/mLFEU (0-500) H 04/10/18 11:00 Consult Discharge Plan - Plan Referrals: Misael Lopez MD [Non-Partnered Physician] - (Patient is going to rehab no PCP appointment needed) Prescriptions: Apixaban [Eliquis] 5 mg PO BID 30 Days #60 tablet <Joseph Arciniega - Last Filed: 04/17/18 15:24> Hospitalist Progress Note - Exam Vitals: Temp Pulse Resp BP Pulse Ox 99.8 F H 92 16 98/51 100 04/17/18 11:32 04/17/18 11:32 04/17/18 11:32 04/17/18 11:32 04/17/18 11:32 - Assessment and Plan (1) Shoulder subluxation, left Current Visit: Yes Status: Acute (2) Arthritis of right knee Current Visit: Yes Status: Acute (3) Type 1 diabetes Current Visit: Yes Status: Acute (4) Hyponatremia Current Visit: Yes Status: Acute (5) Abnormal TSH Current Visit: Yes Status: Acute (6) DVT prophylaxis Current Visit: Yes Status: Acute (7) Calcium pyrophosphate arthropathy Current Visit: Yes Status: Acute (8) Atrial fibrillation with RVR Current Visit: Yes Status: Resolved (9) Sepsis Current Visit: Yes Status: Acute (10) Bacteremia Current Visit: Yes Status: Acute (11) Hypokalemia Current Visit: Yes Status: Resolved (12) Anemia Current Visit: Yes Status: Acute (13) Deep venous thrombosis of left upper extremity Current Visit: Yes Status: Acute (14) Pneumonia Current Visit: Yes Status: Suspected (15) Acute respiratory failure Current Visit: Yes Status: Acute - Time Spent with Patient Total time spent is greater than 50% in coordination of care (as documented) at patient's floor/unit and/or counseling patient: Internal Medicine: Result - Labs CBC & Chem 7: 04/17/18 03:45 04/17/18 03:45 Labs: Short CBC 04/17/18 Range/Units 03:45 WBC 12.0 H (4.3-11.1) K/mcL Hgb 8.3 L (11.5-15.4) g/dL Hct 25.0 L (35.3-44.9) % Plt Count 560 H (140-400) K/mcL Neutrophils # 10.1 H (1.6-8.9) K/mcL BMP 04/17/18 03:45 Sodium 130 L Potassium 3.2 L Chloride 96 L Carbon Dioxide 27 BUN 16 Creatinine 0.48 L Glucose 186 H Calcium 7.7 L - ABG Interpretation ABG results: PT/INR, D-dimer PT 12.1 Seconds (9.4-12.1) 04/11/18 11:35 D-Dimer 5840 ng/mLFEU (0-500) H 04/10/18 11:00 - Attending Attestation I examined this patient and my medical decision-making was reviewed with the Resident Physician. I agree with the documented findings, disposition and treatment plan as described except to the extent set forth below. <Levar Oneil - Last Filed: 04/17/18 11:16> (1) Sepsis Qualifiers: Sepsis type: sepsis due to unspecified organism Qualified Code(s): A41.9 - Sepsis, unspecified organism (2) Pneumonia Qualifiers: Pneumonia type: due to unspecified organism Laterality: bilateral Lung location: unspecified part of lung Qualified Code(s): J18.9 - Pneumonia, unspecified organism (3) Deep venous thrombosis of left upper extremity Qualifiers: Affected thrombotic vein of extremity: brachial Chronicity: acute Qualified Code(s): I82.622 - Acute embolism and thrombosis of deep veins of left upper extremity (4) Anemia Qualifiers: Anemia type: unspecified type Qualified Code(s): D64.9 - Anemia, unspecified (6) Shoulder subluxation, left Qualifiers: Encounter type: initial encounter Qualified Code(s): S43.002A - Unspecified subluxation of left shoulder joint, initial encounter (8) Type 1 diabetes Qualifiers: Diabetes mellitus complication status: with unspecified complications Qualified Code(s): E10.8 - Type 1 diabetes mellitus with unspecified complications (15) Acute respiratory failure Qualifiers: Respiratory failure complication: hypoxia Qualified Code(s): J96.01 - Acute respiratory failure with hypoxia <Joseph Arciniega - Last Filed: 04/17/18 15:24> (1) Shoulder subluxation, left Qualifiers: Encounter type: initial encounter Qualified Code(s): S43.002A - Unspecified subluxation of left shoulder joint, initial encounter (3) Type 1 diabetes Qualifiers: Diabetes mellitus complication status: with unspecified complications Qualified Code(s): E10.8 - Type 1 diabetes mellitus with unspecified complications (9) Sepsis Qualifiers: Sepsis type: sepsis due to unspecified organism Qualified Code(s): A41.9 - Sepsis, unspecified organism (12) Anemia Qualifiers: Anemia type: unspecified type Qualified Code(s): D64.9 - Anemia, unspecified (13) Deep venous thrombosis of left upper extremity Qualifiers: Affected thrombotic vein of extremity: brachial Chronicity: acute Qualified Code(s): I82.622 - Acute embolism and thrombosis of deep veins of left upper extremity (14) Pneumonia Qualifiers: Pneumonia type: due to unspecified organism Laterality: bilateral Lung location: unspecified part of lung Qualified Code(s): J18.9 - Pneumonia, unspecified organism (15) Acute respiratory failure Qualifiers: Respiratory failure complication: hypoxia Qualified Code(s): J96.01 - Acute respiratory failure with hypoxia
--- NOTE | 2018-04-17 10:55 | Infectious Disease Progress No ---
Date of Encounter: 04/17/18 Time of Encounter: 10:20 - Assessment and Plan (1) Sepsis Current Visit: Yes Status: Acute The patient had 2 sepsis criteria plus altered mental status. Likely secondary to bacteremia and right knee septic arthritis. Improved. WBC trending down. Tachycardia improved, but had fever last night and became tachycardic. Tmax 101.2 in the last 24 hours. Blood cultures drawn 04/10/18 are +2 out of 2 sets for MRSA. Repeat blood cultures drawn 04/13/18 are positive 2/2 sets. Additional blood cultures drawn 04/14/18 are positive 2/2 sets. Repeat blood cultures drawn 04/16/18 are positive 2/2 sets. Qualifiers: Sepsis type: sepsis due to unspecified organism Qualified Code(s): A41.9 - Sepsis, unspecified organism (2) Bacteremia Current Visit: Yes Status: Acute Causative organism: MRSA. Source: Right knee septic arthritis. Concern for additional source given the patient's persistent joint pain and persistently positive blood cultures. Blood cultures drawn 04/10/18 are +2 out of 2 sets. Repeat blood cultures drawn 04/13/18 are positive 2/2 sets. Additional cultures drawn 04/14/18 are positive 2/2 sets. Repeat blood cultures drawn 04/16/18 are positive 2/2 sets. Complicated due to the presence of septic arthritis of the right knee and persistent bacteremia. The patient has no indwelling hardware or pacemaker. The patient has one major and one minor Modified Cotton criteria. She does not have any endocarditis stigmata noted on exam. Transthoracic echocardiogram negative for vegetations. Get IDALIA prior to discharge. Check rheumatoid factor.--> <10. Get CT of the head, bilateral shoulders, chest, abdomen/pelvis, bilateral hips, and bilateral knees with IV contrast. If CT scans are non-revealing, may need to perform WBC scan. Continue vancomycin IV. Pharmacy to dose. Goal trough proximally 15. Vanc trough 04/15/18 14. Start Daptomycin 8mg/kg IV daily. Check baseline CK level. Duration of treatment depends on the clinical picture, but likely 4-6 weeks. Monitor renal function for drug toxicity and dose adjust antibiotics. Continue contact precautions per hospital policy. Avoid insertion of long-term IV access until repeat blood cultures are negative x 48 hours. Further OPAT recommendations to follow pending clinical and culture outcomes. (3) Septic arthritis of knee, right Current Visit: Yes Status: Acute Location: Right knee. Causative organism: MRSA MRI of the right knee showed a moderate joint effusion. The sterility of joint fluid was indeterminate on imaging and an infectious process could not be ex cluded. Rheumatology consult and following. Status post bedside arthrocentesis that revealed cloudy purulent fluid. Cell count with differential could not be performed due to the viscosity of the specimen. Orthopedics consulted. Status post arthroscopic I & D 04/11/[address] Fournier. Operative note reviewed. Pus noted intra-op. Cultures as above. Continue antibiotics as stated above. Duration of treatment and clinical picture, but likely 4 weeks of IV antibiotics. Monitor renal function for drug toxicity and does just antibiotics. Wound care and activity restrictions per the ortho team. Qualifiers: Septic arthritis organism: staphylococcal Qualified Code(s): M00.061 - Staphylococcal arthritis, right knee (4) Pleural effusion Current Visit: Yes Status: Acute Location: Bilateral. CT of the chest showed moderate to large right and moderate left pleural effusion with adjacent atelectasis and/or pneumonia notable at lung bases. Etiology unclear: reactive vs. infectious vs. other. Pulmonology consulted. Appreciate recommendations. Continue antibiotics as above. (5) Pneumonia Current Visit: Yes Status: Suspected Location: Bilateral bases. Causative organism: Unclear. CXR showed bilateral pleural effusions with bibasilar airspace disease, likely PNA. CT of the chest showed moderte to large right pleural effusion and moderate left pleural effusion with adjacent atelectasis and/or pneumonia notable at lung bases. Recommend pulmonary to evaluate. Check RIP.--> negative. Check S. pneumo and Legionella UATs.--> negative. Continue Zosyn 3.375 grams IV Q8H. (day 3) Continue Vancomycin IV. Pharmacy to dose. Goal trough ~15. Duration of treatment depends on the clinical picture. Monitor renal function and for drug toxicity and dose-adjust antibiotics. Qualifiers: Pneumonia type: due to unspecified organism Laterality: bilateral Lung location: unspecified part of lung Qualified Code(s): J18.9 - Pneumonia, unspecified organism (6) Altered mental status Current Visit: Yes Status: Resolved Likely secondary to sepsis. Improved. Continue to monitor closely. Qualifiers: Altered mental status type: unspecified Qualified Code(s): R41.82 - Altered mental status, unspecified (7) Shoulder subluxation, left Current Visit: Yes Status: Acute Noted on imaging. IR consulted and aspiration of the joint unsuccessful. Patient reports pain is improved. Orthopedics consulted. Qualifiers: Encounter type: initial encounter Qualified Code(s): S43.002A - Unspecified subluxation of left shoulder joint, initial encounter (8) Hyponatremia Current Visit: Yes Status: Acute (9) Calcium pyrophosphate arthropathy Current Visit: Yes Status: Acute Rheumatology consulted and signed off. Plan to follow up as outpatient. (10) Atrial fibrillation with RVR Current Visit: Yes Status: Resolved Liquids secondary to sepsis. Cardiology consulted and signed off. Rate controlled. (11) Oral lesion Current Visit: Yes Status: Acute Clinically, does not appear to be thrush. HSV PCR positive. Valacyclovir 2 grams PO Q12H x 1 day. Start magic mouthwash with lidocaine. (12) Joint pain Current Visit: Yes Status: Acute Location: Right shoulder, bilateral knees, lower back. Etiology unclear: CPPD vs. infection vs. other. Given the persistent bacteremia, concern for uncontrolled source with infected joint. Repeat ESR and CRP now. Imaging as above. If negative for infectious etiology, consider WBC scan. If positive, recommend surgical I & D. Pain management per the primary team. Qualifiers: Joint pain location: knee Laterality: left Qualified Code(s): M25.562 - Pain in left knee - Subjective Interval history: Patient seen and examined with family at the bedside. No acute events noted overnight. Patient states overall she feels a little better today. She reports hurting "all over," but specifically mentions her lower back, right shoulder, and bilateral knees. She states she had some shortness of breath overnight, but denies cough or chest pain. She denies nausea, vomiting, or diarrhea. Denies abdominal pain. States did eat breakfast this morning, but states it is hard for her to eat due to her oral lesions. Donohue catheter remains patent. Denies new skin rashes. Infect Dis PN-Objective Data - Labs CBC & Chem 7: 04/18/18 04:10 04/18/18 04:10 Labs: Laboratory Results - last 24 hr 04/16/18 04/16/18 04/16/18 01:28 07:45 10:40 WBC RBC Hgb Hct MCV MCH MCHC RDW Plt Count MPV Immature Gran % Seg Neutrophils % Lymphocytes % Monocytes % Eosinophils % Basophils % Neutrophils # Lymphocytes # Monocytes # Eosinophils # Basophils # Heparin Anti-Xa, Unfract 0.41 Sodium Potassium Chloride Carbon Dioxide BUN Creatinine Est GFR ( Amer) Est GFR (Non-Af Amer) BUN/Creatinine Ratio Glucose POC Glucose 83 Calculated Osmolality Calcium Venous Ioniz Calcium Vancomycin Trough A. baumannii (PCR) Not Detected Kirti albicans (PCR) Not Detected C. glabrata (PCR) Not Detected C. krusei (PCR) Not Detected C. parapsilosis (PCR) Not Detected C. tropicalis (PCR) Not Detected Enterobacteriac sp PCR Not Detected E. cloacae complex PCR Not Detected Enterococcus sp PCR Not Detected E. coli (PCR) Not Detected H. influenzae (PCR) Not Detected Herpes Simplex Source HSV I HSV II Klebsiella oxytoca PCR Not Detected Klebsiella pneumoniae Not Detected List. monocytogenes PCR Not Detected N. meningitidis (PCR) Not Detected Proteus species (PCR) Not Detected Serratia marcescens PCR Not Detected Staphylococcus sp PCR DETECTED A Staph aureus (PCR) DETECTED A mecA-Methicil Res Gene DETECTED A Streptococcus sp PCR Not Detected Group A Strep DNA Not Detected Group B Strep (PCR) Not Detected Strep pneumoniae (PCR) Not Detected P. aeruginosa (PCR) Not Detected Ivory/B-Vanco Res Genes Not Detected KPC (blaKPC) Detect PCR Not Detected 04/16/18 04/16/18 04/16/18 10:40 11:48 16:33 WBC RBC Hgb Hct MCV MCH MCHC RDW Plt Count MPV Immature Gran % Seg Neutrophils % Lymphocytes % Monocytes % Eosinophils % Basophils % Neutrophils # Lymphocytes # Monocytes # Eosinophils # Basophils # Heparin Anti-Xa, Unfract Sodium Potassium Chloride Carbon Dioxide BUN Creatinine Est GFR ( Amer) Est GFR (Non-Af Amer) BUN/Creatinine Ratio Glucose POC Glucose 159 H 222 H Calculated Osmolality Calcium Venous Ioniz Calcium Vancomycin Trough A. baumannii (PCR) Kirti albicans (PCR) C. glabrata (PCR) C. krusei (PCR) C. parapsilosis (PCR) C. tropicalis (PCR) Enterobacteriac sp PCR E. cloacae complex PCR Enterococcus sp PCR E. coli (PCR) H. influenzae (PCR) Herpes Simplex Source Tongue HSV I DETECTED A HSV II Not Detected Klebsiella oxytoca PCR Klebsiella pneumoniae List. monocytogenes PCR N. meningitidis (PCR) Proteus species (PCR) Serratia marcescens PCR Staphylococcus sp PCR Staph aureus (PCR) mecA-Methicil Res Gene Streptococcus sp PCR Group A Strep DNA Group B Strep (PCR) Strep pneumoniae (PCR) P. aeruginosa (PCR) Ivory/B-Vanco Res Genes KPC (blaKPC) Detect PCR 04/16/18 04/16/18 04/17/18 19:33 23:05 03:45 WBC 12.0 H RBC 2.86 L Hgb 8.3 L Hct 25.0 L MCV 87.4 MCH 29.0 MCHC 33.2 RDW 14.6 H Plt Count 560 H MPV 10.3 Immature Gran % 1.5 Seg Neutrophils % 83.5 Lymphocytes % 9.5 Monocytes % 4.8 Eosinophils % 0.6 Basophils % 0.1 Neutrophils # 10.1 H Lymphocytes # 1.1 Monocytes # 0.6 Eosinophils # 0.1 Basophils # 0.0 Heparin Anti-Xa, Unfract Sodium Potassium Chloride Carbon Dioxide BUN Creatinine Est GFR ( Amer) Est GFR (Non-Af Amer) BUN/Creatinine Ratio Glucose POC Glucose 242 H Calculated Osmolality Calcium Venous Ioniz Calcium Vancomycin Trough 11 H A. baumannii (PCR) Kirti albicans (PCR) C. glabrata (PCR) C. krusei (PCR) C. parapsilosis (PCR) C. tropicalis (PCR) Enterobacteriac sp PCR E. cloacae complex PCR Enterococcus sp PCR E. coli (PCR) H. influenzae (PCR) Herpes Simplex Source HSV I HSV II Klebsiella oxytoca PCR Klebsiella pneumoniae List. monocytogenes PCR N. meningitidis (PCR) Proteus species (PCR) Serratia marcescens PCR Staphylococcus sp PCR Staph aureus (PCR) mecA-Methicil Res Gene Streptococcus sp PCR Group A Strep DNA Group B Strep (PCR) Strep pneumoniae (PCR) P. aeruginosa (PCR) Ivory/B-Vanco Res Genes KPC (blaKPC) Detect PCR 04/17/18 04/17/18 03:45 07:03 WBC RBC Hgb Hct MCV MCH MCHC RDW Plt Count MPV Immature Gran % Seg Neutrophils % Lymphocytes % Monocytes % Eosinophils % Basophils % Neutrophils # Lymphocytes # Monocytes # Eosinophils # Basophils # Heparin Anti-Xa, Unfract Sodium 130 L Potassium 3.2 L Chloride 96 L Carbon Dioxide 27 BUN 16 Creatinine 0.48 L Est GFR ( Amer) > 60 Est GFR (Non-Af Amer) > 60 BUN/Creatinine Ratio 33 H Glucose 186 H POC Glucose Calculated Osmolality 276 L Calcium 7.7 L Venous Ioniz Calcium 1.14 L Vancomycin Trough A. baumannii (PCR) Kirti albicans (PCR) C. glabrata (PCR) C. krusei (PCR) C. parapsilosis (PCR) C. tropicalis (PCR) Enterobacteriac sp PCR E. cloacae complex PCR Enterococcus sp PCR E. coli (PCR) H. influenzae (PCR) Herpes Simplex Source HSV I HSV II Klebsiella oxytoca PCR Klebsiella pneumoniae List. monocytogenes PCR N. meningitidis (PCR) Proteus species (PCR) Serratia marcescens PCR Staphylococcus sp PCR Staph aureus (PCR) mecA-Methicil Res Gene Streptococcus sp PCR Group A Strep DNA Group B Strep (PCR) Strep pneumoniae (PCR) P. aeruginosa (PCR) Ivory/B-Vanco Res Genes KPC (blaKPC) Detect PCR Cultures: Cultures 04/11/18 18:25 Anaerobic Culture - Final Right Knee No anaerobes were recovered. 04/16/18 01:28 Blood Culture - Preliminary Peripheral Venipuncture Gram Positive Cocci 04/16/18 01:28 Blood Culture - Preliminary Peripheral Venipuncture Gram Positive Cocci 04/14/18 04:20 Blood Culture - Final Peripheral Venipuncture Methicillin Resistant S.aureus 04/14/18 04:20 Blood Culture - Final Peripheral Venipuncture Methicillin Resistant S.aureus 04/15/18 16:15 Legionella Antigen - Final Urine,Clean Catch Streptococcus pneumoniae Antigen (M - Final 04/13/18 05:46 Blood Culture - Final Peripheral Venipuncture Methicillin Resistant S.aureus 04/13/18 05:34 Blood Culture - Preliminary Peripheral Venipuncture Gram Positive Cocci - Clusters 04/11/18 18:25 Wound Culture - Final Right Knee Methicillin Resistant S.aureus 04/10/18 11:00 Blood Culture - Final Peripheral Venipuncture Methicillin Resistant S.aureus 04/10/18 11:10 Blood Culture - Final Peripheral Venipuncture Methicillin Resistant S.aureus 04/09/18 12:30 Body Fluid Culture - Final Synovial Fluid Methicillin Resistant S.aureus Serology 04/16/18 04/16/18 04/15/18 Range/Units 10:40 01:28 16:12 Ur Specimen Adequacy Urine Color (Yellow) Urine Clarity (Clear) Urine pH (5.0-8.0) pH Units Ur Specific [place] (1.010-1.025) Urine Protein (Neg-Trace) mg/dL Urine Glucose (UA) (Normal) mg/dL Urine Ketones (Negative) mg/dL Urine Blood (Negative) Urine Nitrite (Negative) Urine Bilirubin (Negative) Urine Urobilinogen (Normal) mg/dL Ur Leukocyte Esterase (Negative) Urine Microscopic RBC (0-3) per hpf Urine Microscopic WBC (0-3) per hpf Ur Squamous Epith Cells (None-Few) per lpf Urine Bacteria (None-Few) per hpf Hyaline Casts Ur Culture Indicated? (NO) Urine Osmolality (300-1090) mOsm/kg Urine Sodium mEq/L Fluid Crystals (None Seen) Synovial Source Synovial Color (Straw) Synovial Appearance (Clear-Hazy) Synovial Volume mL Synovial RBC Synovial Tot Nuc Cell Synovial Band Neuts Synovial Basophils Synovial Eosinophils Synovial Seg Neuts % % Synovial Lymphocytes % % Synovial Monocytes % % Synovial Other Cells % A. baumannii (PCR) Not Detected (Not Detect) Chlamy pneumoniae PCR Not Detected (Not Detect) Adenovirus (PCR) Not Detected (Not Detect) B. pertussis DNA (PCR) Not Detected (Not Detect) B.parapertussis DNA PCR Not Detected (Not Detect) Kirti albicans (PCR) Not Detected (Not Detect) C. glabrata (PCR) Not Detected (Not Detect) C. krusei (PCR) Not Detected (Not Detect) C. parapsilosis (PCR) Not Detected (Not Detect) C. tropicalis (PCR) Not Detected (Not Detect) Coronavirus OC43 (PCR) Not Detected (Not Detect) Coronavirus HKU1 (PCR) Not Detected (Not Detect) Coronavirus 229E (PCR) Not Detected (Not Detect) Coronavirus NL63 (PCR) Not Detected (Not Detect) Enterobacteriac sp PCR Not Detected (Not Detect) E. cloacae complex PCR Not Detected (Not Detect) Enterococcus sp PCR Not Detected (Not Detect) E. coli (PCR) Not Detected (Not Detect) H. influenzae (PCR) Not Detected (Not Detect) Herpes Simplex Source Tong[place] HSV I DETECTED A (Not Detect) HSV II Not Detected (Not Detect) Human Metapneumovir PCR Not Detected (Not Detect) Influenza A (H1) PCR Not Detected (Not Detect) Influ A (H1N1/09) PCR Not Detected (Not Detect) Influenza A (H3) PCR Not Detected (Not Detect) Influenza A Untype (PCR) Not Detected (Not Detect) Influenza Type B (PCR) Not Detected (Not Detect) Klebsiella oxytoca PCR Not Detected (Not Detect) Klebsiella pneumoniae Not Detected (Not Detect) List. monocytogenes PCR Not Detected (Not Detect) M.pneumoniae DNA (PCR) Not Detected (Not Detect) N. meningitidis (PCR) Not Detected (Not Detect) Parainfluenza 1 (PCR) Not Detected (Not Detect) Parainfluenza 2 (PCR) Not Detected (Not Detect) Parainfluenza 3 (PCR) Not Detected (Not Detect) Parainfluenza 4 (PCR) Not Detected (Not Detect) Proteus species (PCR) Not Detected (Not Detect) RSV (PCR) Not Detected (Not Detect) Entero/Rhino (PCR) Not Detected (Not Detect) Serratia marcescens PCR Not Detected (Not Detect) Staphylococcus sp PCR DETECTED A (Not Detect) Staph aureus (PCR) DETECTED A (Not Detect) mecA-Methicil Res Gene DETECTED A (Not Detect) Streptococcus sp PCR Not Detected (Not Detect) Group A Strep DNA Not Detected (Not Detect) Group B Strep (PCR) Not Detected (Not Detect) Strep pneumoniae (PCR) Not Detected (Not Detect) P. aeruginosa (PCR) Not Detected (Not Detect) Ivory/B-Vanco Res Genes Not Detected (Not Detect) KPC (blaKPC) Detect PCR Not Detected (Not Detect) 04/13/18 04/10/18 04/10/18 Range/Units 05:46 16:41 16:41 Ur Specimen Adequacy Urine Color (Yellow) Urine Clarity (Clear) Urine pH (5.0-8.0) pH Units Ur Specific [place] (1.010-1.025) Urine Protein (Neg-Trace) mg/dL Urine Glucose (UA) (Normal) mg/dL Urine Ketones (Negative) mg/dL Urine Blood (Negative) Urine Nitrite (Negative) Urine Bilirubin (Negative) Urine Urobilinogen (Normal) mg/dL Ur Leukocyte Esterase (Negative) Urine Microscopic RBC (0-3) per hpf Urine Microscopic WBC (0-3) per hpf Ur Squamous Epith Cells (None-Few) per lpf Urine Bacteria (None-Few) per hpf Hyaline Casts Ur Culture Indicated? (NO) Urine Osmolality 407 (300-1090) mOsm/kg Urine Sodium 21.3 mEq/L Fluid Crystals (None Seen) Synovial Source Synovial Color (Straw) Synovial Appearance (Clear-Hazy) Synovial Volume mL Synovial RBC Synovial Tot Nuc Cell Synovial Band Neuts Synovial Basophils Synovial Eosinophils Synovial Seg Neuts % % Synovial Lymphocytes % % Synovial Monocytes % % Synovial Other Cells % A. baumannii (PCR) Not Detected (Not Detect) Chlamy pneumoniae PCR (Not Detect) Adenovirus (PCR) (Not Detect) B. pertussis DNA (PCR) (Not Detect) B.parapertussis DNA PCR (Not Detect) Kirti albicans (PCR) Not Detected (Not Detect) C. glabrata (PCR) Not Detected (Not Detect) C. krusei (PCR) Not Detected (Not Detect) C. parapsilosis (PCR) Not Detected (Not Detect) C. tropicalis (PCR) Not Detected (Not Detect) Coronavirus OC43 (PCR) (Not Detect) Coronavirus HKU1 (PCR) (Not Detect) Coronavirus 229E (PCR) (Not Detect) Coronavirus NL63 (PCR) (Not Detect) Enterobacteriac sp PCR Not Detected (Not Detect) E. cloacae complex PCR Not Detected (Not Detect) Enterococcus sp PCR Not Detected (Not Detect) E. coli (PCR) Not Detected (Not Detect) H. influenzae (PCR) Not Detected (Not Detect) Herpes Simplex Source HSV I (Not Detect) HSV II (Not Detect) Human Metapneumovir PCR (Not Detect) Influenza A (H1) PCR (Not Detect) Influ A (H1N1/09) PCR (Not Detect) Influenza A (H3) PCR (Not Detect) Influenza A Untype (PCR) (Not Detect) Influenza Type B (PCR) (Not Detect) Klebsiella oxytoca PCR Not Detected (Not Detect) Klebsiella pneumoniae Not Detected (Not Detect) List. monocytogenes PCR Not Detected (Not Detect) M.pneumoniae DNA (PCR) (Not Detect) N. meningitidis (PCR) Not Detected (Not Detect) Parainfluenza 1 (PCR) (Not Detect) Parainfluenza 2 (PCR) (Not Detect) Parainfluenza 3 (PCR) (Not Detect) Parainfluenza 4 (PCR) (Not Detect) Proteus species (PCR) Not Detected (Not Detect) RSV (PCR) (Not Detect) Entero/Rhino (PCR) (Not Detect) Serratia marcescens PCR Not Detected (Not Detect) Staphylococcus sp PCR DETECTED A (Not Detect) Staph aureus (PCR) DETECTED A (Not Detect) mecA-Methicil Res Gene DETECTED A (Not Detect) Streptococcus sp PCR Not Detected (Not Detect) Group A Strep DNA Not Detected (Not Detect) Group B Strep (PCR) Not Detected (Not Detect) Strep pneumoniae (PCR) Not Detected (Not Detect) P. aeruginosa (PCR) Not Detected (Not Detect) Ivory/B-Vanco Res Genes N/A (Not Detect) KPC (blaKPC) Detect PCR N/A (Not Detect) 04/10/18 04/09/18 04/09/18 Range/Units 11:10 12:30 12:30 Ur Specimen Adequacy Urine Color (Yellow) Urine Clarity (Clear) Urine pH (5.0-8.0) pH Units Ur Specific [place] (1.010-1.025) Urine Protein (Neg-Trace) mg/dL Urine Glucose (UA) (Normal) mg/dL Urine Ketones (Negative) mg/dL Urine Blood (Negative) Urine Nitrite (Negative) Urine Bilirubin (Negative) Urine Urobilinogen (Normal) mg/dL Ur Leukocyte Esterase (Negative) Urine Microscopic RBC (0-3) per hpf Urine Microscopic WBC (0-3) per hpf Ur Squamous Epith Cells (None-Few) per lpf Urine Bacteria (None-Few) per hpf Hyaline Casts Ur Culture Indicated? (NO) Urine Osmolality (300-1090) mOsm/kg Urine Sodium mEq/L Fluid Crystals CPPD Crystals Seen A (None Seen) Synovial Source RIGHT KNEE Synovial Color Straw (Straw) Synovial Appearance Cloudy A (Clear-Hazy) Synovial Volume 8.0 mL Synovial RBC TNP Synovial Tot Nuc Cell TNP Synovial Band Neuts Test Not Performed Synovial Basophils Test Not Performed Synovial Eosinophils Test Not Performed Synovial Seg Neuts % 2.0 % Synovial Lymphocytes % 84.0 % Synovial Monocytes % 14.0 % Synovial Other Cells % Test Not Performed A. baumannii (PCR) Not Detected (Not Detect) Chlamy pneumoniae PCR (Not Detect) Adenovirus (PCR) (Not Detect) B. pertussis DNA (PCR) (Not Detect) B.parapertussis DNA PCR (Not Detect) Kirti albicans (PCR) Not Detected (Not Detect) C. glabrata (PCR) Not Detected (Not Detect) C. krusei (PCR) Not Detected (Not Detect) C. parapsilosis (PCR) Not Detected (Not Detect) C. tropicalis (PCR) Not Detected (Not Detect) Coronavirus OC43 (PCR) (Not Detect) Coronavirus HKU1 (PCR) (Not Detect) Coronavirus 229E (PCR) (Not Detect) Coronavirus NL63 (PCR) (Not Detect) Enterobacteriac sp PCR Not Detected (Not Detect) E. cloacae complex PCR Not Detected (Not Detect) Enterococcus sp PCR Not Detected (Not Detect) E. coli (PCR) Not Detected (Not Detect) H. influenzae (PCR) Not Detected (Not Detect) Herpes Simplex Source HSV I (Not Detect) HSV II (Not Detect) Human Metapneumovir PCR (Not Detect) Influenza A (H1) PCR (Not Detect) Influ A (H1N1/09) PCR (Not Detect) Influenza A (H3) PCR (Not Detect) Influenza A Untype (PCR) (Not Detect) Influenza Type B (PCR) (Not Detect) Klebsiella oxytoca PCR Not Detected (Not Detect) Klebsiella pneumoniae Not Detected (Not Detect) List. monocytogenes PCR Not Detected (Not Detect) M.pneumoniae DNA (PCR) (Not Detect) N. meningitidis (PCR) Not Detected (Not Detect) Parainfluenza 1 (PCR) (Not Detect) Parainfluenza 2 (PCR) (Not Detect) Parainfluenza 3 (PCR) (Not Detect) Parainfluenza 4 (PCR) (Not Detect) Proteus species (PCR) Not Detected (Not Detect) RSV (PCR) (Not Detect) Entero/Rhino (PCR) (Not Detect) Serratia marcescens PCR Not Detected (Not Detect) Staphylococcus sp PCR DETECTED A (Not Detect) Staph aureus (PCR) DETECTED A (Not Detect) mecA-Methicil Res Gene DETECTED A (Not Detect) Streptococcus sp PCR Not Detected (Not Detect) Group A Strep DNA Not Detected (Not Detect) Group B Strep (PCR) Not Detected (Not Detect) Strep pneumoniae (PCR) Not Detected (Not Detect) P. aeruginosa (PCR) Not Detected (Not Detect) Ivory/B-Vanco Res Genes N/A (Not Detect) KPC (blaKPC) Detect PCR N/A (Not Detect) 04/06/18 Range/Units 11:55 Ur Specimen Adequacy See below A Urine Color Yellow (Yellow) Urine Clarity Clear (Clear) Urine pH 5.5 (5.0-8.0) pH Units Ur Specific [place] 1.014 (1.010-1.025) Urine Protein 30 H (Neg-Trace) mg/dL Urine Glucose (UA) 250 H (Normal) mg/dL Urine Ketones Negative (Negative) mg/dL Urine Blood Small H (Negative) Urine Nitrite Negative (Negative) Urine Bilirubin Negative (Negative) Urine Urobilinogen Normal (Normal) mg/dL Ur Leukocyte Esterase Negative (Negative) Urine Microscopic RBC 5-15 H (0-3) per hpf Urine Microscopic WBC 0-3 (0-3) per hpf Ur Squamous Epith Cells Many H (None-Few) per lpf Urine Bacteria None Seen (None-Few) per hpf Hyaline Casts Test Not Performed Ur Culture Indicated? NO (NO) Urine Osmolality (300-1090) mOsm/kg Urine Sodium mEq/L Fluid Crystals (None Seen) Synovial Source Synovial Color (Straw) Synovial Appearance (Clear-Hazy) Synovial Volume mL Synovial RBC Synovial Tot Nuc Cell Synovial Band Neuts Synovial Basophils Synovial Eosinophils Synovial Seg Neuts % % Synovial Lymphocytes % % Synovial Monocytes % % Synovial Other Cells % A. baumannii (PCR) (Not Detect) Chlamy pneumoniae PCR (Not Detect) Adenovirus (PCR) (Not Detect) B. pertussis DNA (PCR) (Not Detect) B.parapertussis DNA PCR (Not Detect) Kirti albicans (PCR) (Not Detect) C. glabrata (PCR) (Not Detect) C. krusei (PCR) (Not Detect) C. parapsilosis (PCR) (Not Detect) C. tropicalis (PCR) (Not Detect) Coronavirus OC43 (PCR) (Not Detect) Coronavirus HKU1 (PCR) (Not Detect) Coronavirus 229E (PCR) (Not Detect) Coronavirus NL63 (PCR) (Not Detect) Enterobacteriac sp PCR (Not Detect) E. cloacae complex PCR (Not Detect) Enterococcus sp PCR (Not Detect) E. coli (PCR) (Not Detect) H. influenzae (PCR) (Not Detect) Herpes Simplex Source HSV I (Not Detect) HSV II (Not Detect) Human Metapneumovir PCR (Not Detect) Influenza A (H1) PCR (Not Detect) Influ A (H1N1/09) PCR (Not Detect) Influenza A (H3) PCR (Not Detect) Influenza A Untype (PCR) (Not Detect) Influenza Type B (PCR) (Not Detect) Klebsiella oxytoca PCR (Not Detect) Klebsiella pneumoniae (Not Detect) List. monocytogenes PCR (Not Detect) M.pneumoniae DNA (PCR) (Not Detect) N. meningitidis (PCR) (Not Detect) Parainfluenza 1 (PCR) (Not Detect) Parainfluenza 2 (PCR) (Not Detect) Parainfluenza 3 (PCR) (Not Detect) Parainfluenza 4 (PCR) (Not Detect) Proteus species (PCR) (Not Detect) RSV (PCR) (Not Detect) Entero/Rhino (PCR) (Not Detect) Serratia marcescens PCR (Not Detect) Staphylococcus sp PCR (Not Detect) Staph aureus (PCR) (Not Detect) mecA-Methicil Res Gene (Not Detect) Streptococcus sp PCR (Not Detect) Group A Strep DNA (Not Detect) Group B Strep (PCR) (Not Detect) Strep pneumoniae (PCR) (Not Detect) P. aeruginosa (PCR) (Not Detect) Ivory/B-Vanco Res Genes (Not Detect) KPC (blaKPC) Detect PCR (Not Detect) Exam - Constitutional Vitals: Temp Pulse Resp BP Pulse Ox 99.2 F 83 18 105/51 92 04/17/18 07:54 04/17/18 07:54 04/17/18 03:30 04/17/18 07:54 04/17/18 07:54 General appearance: average body habitus, cooperative, no acute distress - Head Head exam: Present: atraumatic, normal inspection, normocephalic - Eye Eye exam: Present: EOMI, normal appearance, PERRL Pupils: Present: normal accommodation Additional comments: No subconjunctival hemorrhage noted. - ENT ENT exam: Present: mucous membranes moist Additional comments: Vesicular lesions noted to the tongue. - Neck Neck exam: Present: normal inspection - Respiratory Respiratory exam: Present: CTAB. Absent: rales, respiratory distress, rhonchi, wheezes - Cardiovascular Cardiovascular exam: Present: RRR, +S1, +S2 - GI/Abdominal GI/Abdominal exam: Present: normal bowel sounds, soft. Absent: distended, tenderness Additional comments: Donohue catheter noted to be draining clear yellow urine. - Extremities Exam Extremities exam: Present: joint swelling (Trace bilateral knees), pedal edema (1+ BLE), tenderness (Right shoulder, bilateral knees). Absent: normal inspection (Surgical sites noted to the right knee with sutures and steri-strips C/D/I. No erythema, warmth, or swelling noted. Tenderness noted with palpation. Unable to assess ROM due to pain. ) - Back Exam Additional comments: Deferred per patient request. - Neurological Exam Neurological exam: Present: alert, oriented X3, no focal deficits - Psychiatric Psychiatric exam: Present: normal affect, normal mood - Skin Skin exam: Present: dry, intact, normal color, warm Consult Discharge Plan - Plan Referrals: Misael Lopez MD [Non-Partnered Physician] - (Patient is going to rehab no PCP appointment needed) Prescriptions: Apixaban [Eliquis] 5 mg PO BID 30 Days #60 tablet - Attending Attestation I examined this patient and my medical decision-making was reviewed with the Resident Physician. I agree with the documented findings, disposition and treatment plan as described except to the extent set forth below.
[2018-04-17 11:56] LABS: Magnesium 1.6 mg/dL (1.6-2.6)
[2018-04-17 12:11] LABS: Phosphorous 3.3 mg/dL (2.7-4.5)
[2018-04-17] MEDS: Stomatitis Mixture 5 ML UDC PO SCH ×3 (14:53→19:57)
[2018-04-17 15:32] LABS: Hematocrit 28.2 % (35.3-44.9); Hemoglobin 9.3 g/dL (11.5-15.4)
[2018-04-17] MEDS ORDERED: Isovue-370 500 ML INFUS..BTL IV ONE (16:24)
[2018-04-17] MEDS ORDERED: DAPTOmycin 500 MG in 0.9 % Sodium Chloride 100 ML IVPB SCH (17:30)
--- NOTE | 2018-04-17 18:40 | Orthopedics Progress Note ---
Date of Encounter: 04/17/18 Time of Encounter: 18:37 - Assessment and Plan (1) Septic arthritis of knee, right Current Visit: Yes Status: Acute POD#5 - Right Knee I&D Assessment and plan: Continue with postoperative care Doppler RLE NEGATIVE aspiration of LEFT knee performed - If Gram stain is positive; will plan for OR Saturday afternoon with . Discussed with family, and will further discuss in AM. 40mL of purulent fluid obtained with aspiration, concerning for septic joint of LEFT knee. Gram stain, cultures and cell count sent for review STAT. NPO after midnight. Continue IV antibiotics per IDs recommendation ESR/CRP increased from prior results. Left Shoulder: Recommend MRI outpatient as needed, IR aspiration - no fluid obtained; Continue with gentle hand and wrist ROM to improve swelling 04/14 - Left upper extremity venous duplex appears to be positive for at acute DVT in the left brachial and radial veins. Qualifiers: Qualified Code(s): M00.061 - Staphylococcal arthritis, right knee (2) Bacteremia Current Visit: Yes Status: Acute (3) Shoulder subluxation, left Current Visit: Yes Status: Acute Qualifiers: Qualified Code(s): S43.002A - Unspecified subluxation of left shoulder joint, initial encounter (4) Arthritis of right knee Current Visit: Yes Status: Acute Subjective Principal diagnosis: Right Septic Knee Interval history: Patient was seen this morning, POD#5 Right Knee Arthoscopic I&D 04/11/18 Patient reporting continue general malaise, DX with bilateral pleural effusions and pneumonia with pulm consulted - bilateral pleural effusions are hydrostatic pulmonary edema secondary to atrial fibrillation acutely with use of continuous crystalloid infusion now on hold. Plan to continue gentle diuresis as tolerated very patient comfortable no immediate need for thoracentesis at this time. Reports multi-joint pain and ache continues, in particularly with her LEFT knee. No increased pain to Right knee. PTOT today. Doppler 04/15: Normal right lower extremity deep and superficial venous exam. Normal contralateral common femoral vein. Fever continues - Tylenol started today. Patient Weight 04/15/18 23:59 Weight 78.5 kg WBC improved Operative extremity: Sutures intact, steri-strips in place. C/D/I. Mild Effusion noted, no erythema, no drainage. +Calf tenderness NV intact distally Left knee: Moderate effusion noted No erythema, abrasions or obvious deformity Painful with PROM and limited AROM seconedary to fluid overload and pain NV intact distally Left Shoulder: 04/14 - Left upper extremity venous duplex appears to be positive for at acute DVT in the left brachial and radial veins. No effusion, swelling noted into arm and lower arm Shoulder ROM - unable to complete due to pain NV intact Finger swelling and stiffness noted Assessment and plan: Continue with postoperative care Doppler RLE NEGATIVE LEFT knee aspirated - Continue IV antibiotics per IDs recommendation ESR/CRP needed Left Shoulder: Recommend MRI outpatient as needed, IR aspiration - no fluid obtained; Continue with gentle hand and wrist ROM to improve swelling 04/14 - Left upper extremity venous duplex appears to be positive for at acute DVT in the left brachial and radial veins. F/up appt set and faxed to floor. Objective Vital signs: Vital Signs Temp Pulse Resp BP Pulse Ox 04/17/18 16:44 101.8 F H 101 16 119/53 04/17/18 11:32 99.8 F H 92 16 98/51 100 04/17/18 08:20 100 04/17/18 07:54 99.2 F 83 105/51 92 04/17/18 03:30 100.4 F H 86 18 119/54 100 04/17/18 02:48 99.6 F 04/17/18 00:34 97 04/17/18 00:07 101.2 F H 102 16 119/55 100 04/16/18 19:50 113 04/16/18 19:27 100.6 F H 117 16 114/81 100 Intake and Output 04/17/18 04/17/18 04/17/18 07:59 15:59 23:59 Intake Total 350 / 350 600 / 600 0 / 0 Output Total 1150 / 1150 160 / 160 350 / 350 Balance -800 / -800 440 / 440 -350 / -350 Intake: IV Fluids 350 / 350 600 / 600 Heparin 25,000 UNIT/500 ML D5W 500 / 500 25,000 unit In 500 ml @ 14 UNIT /KG/HR 18.676 mls/hr IVC .Q24H [facility] Rx#:[id number] Zosyn 3.375 GM In 0.9 % Sodium 100 / 100 100 / 100 Chloride (Mini-Bag +) 100 ML @ 25 mls/hr IVPB Q8HR [facility] Rx#: [id number] Vancocin 1,000 MG In 0.9 % 250 / 250 Sodium Chloride 250 ML @ 167 mls/hr IVPB Q12H [facility] Rx#: [id number] Oral 0 / 0 Output: Catheter 1150 / 1150 160 / 160 350 / 350 Other: Meal Dinner Percent of Meal Consumed 10% Weight 67.9 kg Blood Glucose* 113 202 197 Patient Weight 04/17/18 23:59 Weight 67.9 kg - Labs CBC & BMP: 04/18/18 04:10 04/18/18 04:10 Labs: Abnormal lab results WBC 12.0 K/mcL (4.3-11.1) H 04/17/18 03:45 RBC 2.86 M/mcL (3.82-4.97) L 04/17/18 03:45 Hgb 9.3 g/dL (11.5-15.4) L 04/17/18 15:16 Hct 28.2 % (35.3-44.9) L 04/17/18 15:16 RDW 14.6 % (11.5-14.5) H 04/17/18 03:45 Plt Count 560 K/mcL (140-400) H 04/17/18 03:45 Band Neutrophils % 6.0 % (0-4) H 04/13/18 05:34 Neutrophils # 10.1 K/mcL (1.6-8.9) H 04/17/18 03:45 Toxic Granulation Present (Not Present) A 04/12/18 16:20 Large Platelets Present (Not Present) A 04/13/18 05:34 Immature Plt Fraction 13.2 % (1.1-6.1) H 04/10/18 03:56 Anisocytosis 1+ (Not Present) A 04/13/18 05:34 ESR 111 mm/hr (0-15) H 04/17/18 09:00 D-Dimer 5840 ng/mLFEU (0-500) H 04/10/18 11:00 VBG pCO2 33 mmHg (41-51) L 04/06/18 10:45 VBG pO2 84 mmHg (25-50) H 04/06/18 10:45 Sodium 130 mEq/L (136-145) L 04/17/18 03:45 Potassium 3.2 mEq/L (3.5-5.1) L 04/17/18 03:45 Chloride 96 mEq/L (98-107) L 04/17/18 03:45 Creatinine 0.48 mg/dL (0.60-1.20) L 04/17/18 03:45 BUN/Creatinine Ratio 33 (6-26) H 04/17/18 03:45 Glucose 186 mg/dL (70-105) H 04/17/18 03:45 POC Glucose 113 mg/dL (70-99) H 04/17/18 07:44 Hemoglobin A1c 7.8 % (-5.6) H 04/06/18 10:31 Calculated Osmolality 276 (280-300) L 04/17/18 03:45 Calcium 7.7 mg/dL (8.6-10.3) L 04/17/18 03:45 Venous Ioniz Calcium 1.14 mmol/L (1.15-1.35) L 04/17/18 07:03 Alkaline Phosphatase 260 Units/L (34-104) H 04/15/18 04:14 Creatine Kinase 11 Units/L (30-223) L 04/17/18 16:55 C-Reactive Protein 166 mg/L (Less than 10) H 04/17/18 09:00 B-Natriuretic Peptide 219 pg/mL (Less than 100) H 04/15/18 20:12 Serum Total Protein 4.8 g/dL (6.4-8.9) L 04/15/18 04:14 Albumin 1.7 g/dL (3.5-5.7) L 04/15/18 04:14 Albumin/Globulin Ratio 0.5 (1.1-2.2) L 04/15/18 04:14 TSH 0.248 mcIU/mL (0.340-5.600) L 04/06/18 10:31 Ur Specimen Adequacy See below A 04/06/18 11:55 Urine Protein 30 mg/dL (Neg-Trace) H 04/06/18 11:55 Urine Glucose (UA) 250 mg/dL (Normal) H 04/06/18 11:55 Urine Blood Small (Negative) H 04/06/18 11:55 Urine Microscopic RBC 5-15 per hpf (0-3) H 04/06/18 11:55 Ur Squamous Epith Cells Many per lpf (None-Few) H 04/06/18 11:55 Fluid Crystals CPPD Crystals Seen (None Seen) A 04/09/18 12:30 Synovial Appearance Cloudy (Clear-Hazy) A 04/09/18 12:30 Vancomycin Trough 11 mcg/mL (5-10) H 04/16/18 23:05 Urine Opiates Screen Positive ng/mL (Qzbumd=671) H 04/06/18 11:54 HSV I DETECTED (Not Detect) A 04/16/18 10:40 Staphylococcus sp PCR DETECTED (Not Detect) A 04/16/18 01:28 Staph aureus (PCR) DETECTED (Not Detect) A 04/16/18 01:28 mecA-Methicil Res Gene DETECTED (Not Detect) A 04/16/18 01:28 Consult Discharge Plan - Plan Referrals: Misael Lopez MD [Non-Partnered Physician] - (Patient is going to rehab no PCP appointment needed) Prescriptions: Apixaban [Eliquis] 5 mg PO BID 30 Days #60 tablet
[2018-04-17 19:16] LABS: INR 1.3; Prothrombin Time 14.8 Seconds (9.4-12.1)
[2018-04-17 19:42] LABS: Source,Synovial Fluid left knee
[2018-04-17 20:47] LABS: Color,Synovial Fluid Amber (Straw)
[2018-04-17] MEDS: Insulin DETEMIR 100 UNIT/ML X5UNITS SQ SCH (20:47)
[2018-04-17 20:48] LABS: Appearance,Synovial Fluid Hazy (Clear-Hazy)
[2018-04-18] MEDS: Piperacillin/Tazobactam 3.375 GM in 0.9 % Sodium Chloride Mini Bag 100 ML IVPB SCH ×4 (00:02→23:58)
[2018-04-18 04:41] LABS: Basophils % 0.3 %; Eosinophils # 0.1 K/mcL (0.0-0.6); Eosinophils % 0.9 %; Hematocrit 24.4 % (35.3-44.9); Immature Granulocytes % 1.1 % (0-4); Lymphocytes # 1.2 K/mcL (0.6-4.6); Lymphocytes % 10.1 %; Mean Corpuscular HGB Conc 32.8 g/dL (31.6-35.5); Mean Corpuscular Hemoglobin 29.2 pg (28.0-33.3); Mean Corpuscular Volume 89.1 fL (83.0-100.0); Monocytes # 0.6 K/mcL (0.0-1.3); Monocytes % 4.9 %; Neutrophils # 9.5 K/mcL (1.6-8.9); Platelet Count 662 K/mcL (140-400); Red Blood Count 2.74 M/mcL (3.82-4.97); Red Cell Distribution Width 14.7 % (11.5-14.5); Segmented Neutrophils % 82.7 %
[2018-04-18 04:59] LABS: Alanine Aminotransferase 10 Units/L (7-52); Albumin 1.7 g/dL (3.5-5.7); Albumin/Globulin Ratio 0.5 (1.1-2.2); Alkaline Phosphatase 200 Units/L (34-104); Aspartate Amino Transferase 16 Units/L (13-39); BUN/Creatinine Ratio 32 (6-26); Bilirubin,Total 0.7 mg/dL (0.3-1.0); Blood Urea Nitrogen 14 mg/dL (8-23); Calcium 7.5 mg/dL (8.6-10.3); Carbon Dioxide 27 mEq/L (23-29); Chloride 95 mEq/L (98-107); Globulin 3.3 g/dL (2.4-3.5); Glucose 95 mg/dL (70-105); Osmolality,Calculated 272 (280-300); Potassium 3.3 mEq/L (3.5-5.1); Sodium 131 mEq/L (136-145); eGFR For Non-African Americans > 60 (> 60)
[2018-04-18] MEDS: Heparin 25,000 UNIT/500 ML D5W 25,000 UNIT/500 ML BAG IVC SCH ×2 (05:59→08:01)
[2018-04-18] MEDS: Budesonide/Formoterol 160/4.5 1 PUFF INH IH SCH ×2 (07:46→22:01)
[2018-04-18] MEDS: traMADol 50 MG TABLET PO SCH (07:57)
[2018-04-18] MEDS: Multivit/Ca/Min/Fe/FA 1 TAB TABLET PO SCH (07:58)
[2018-04-18] MEDS: Metoprolol XL (24 HR) Succ 25 MG TAB.ER.24H PO SCH (07:58)
[2018-04-18] MEDS: Stomatitis Mixture 5 ML UDC PO SCH ×4 (07:59→21:42)
[2018-04-18] MEDS: Nystatin SUSP 5 ML UD.LIQ PO SCH ×4 (07:59→21:42)
[2018-04-18] MEDS: Insulin LISPRO 300 UNITS/3 ML VIAL SQ SCH ×4 (07:59→22:28)
--- NOTE | 2018-04-18 08:44 | Rheumatology Progress Note ---
<Rao Braun - Last Filed: 04/18/18 10:47> Date of Encounter: 04/18/18 Time of Encounter: 09:00 Rheumatology Assess and Plan (1) Inflammatory arthritis Current Visit: Yes Status: Acute The patient continues to have significant pain and tenderness in her bilateral knees CPPD crystals were noted in synovial fluid aspirate of the right knee on 04/09/18, however patient also was noted to have septic joint with MRSA Patient is currently POD# 6 of joint washout of the right knee, Continues to have persistent bacteremia, evidence of sepsis Imaging: L. Shouder XR: Severe glenohumeral osteoarthritic changes with large marginal osteophytes, subchondral calcinosis, calcific tendonitis R. Knee XR: Tricompartmental joint space narrowing with osteophytes Throughout visit, RF Negative x2, CCP negative. Uric acid 4.3 Aspiration of Left knee synovial fluid 04/17 demonstrates no crystals The patient does have concerning evidence for CPPD arthritic changes, however septic arthritis is primary issue at this time Orthopedic surgery and Infectious disease are on board at this time, the patient is scheduled for LEFT Knee washout in OR today Poor candidate for local or systemic corticosteroids in the setting of infected joints and sepsis Recommend continued management per primary team with Ortho and ID consult, and CPPD workup with rheumatology as outpatient following resolution of acute illness and infection (2) Septic arthritis of knee, bilateral Current Visit: Yes Status: Acute Septic arthritis of the bilateral knees with MRSA Patient is currently seen and managed by Ortho and ID Scheduled for left knee washout in the OR with Ortho later this afternoon - Subjective Interval history: The patient is resting in bed at time of examination. She was last seen by rheumatology on 04/09/18 for consultation regarding suspicion of CPPD arthritis. The patient has since been managed for septic arthritis involving the right knee with MRSA bacteria. She has had persistent MRSA bacteremia noted with multiple blood cultures positive, most recently noted 04/16/18 with gram- positive cocci noted in 2 cultures. In addition of this, the patient apparently has had continued pain in her left shoulder, as well as bilateral lower extremities including her knees and also in her ankles. It appears that since that time, the patient has remained septic, and there has been concern that the septic joints have remained a large source of infection. Hospitalist team is concerned about worsening of this joint. Infectious disease and orthopedic surgery remains on board at this time. The patient did have a joint aspiration of the left knee yesterday due to worsening inflammation and edema which was positive for gram-positive cocci and 4770 total nucleated cells but negative for crystals. She has had otherwise no significant change in clinical status. Exam Vital Signs, Last 4 Hours Temp Pulse Resp BP Pulse Ox 04/18/18 08:00 99.9 F H 99 24 107/55 95 Exam: Gen: Vitals noted. No acute distress. Patient does appear uncomfortable in bed Eyes: anicteric sclerae, moist conjunctivae; no lid-lag; Pupils equal and reactive to light HENT: Atraumatic; oropharynx clear with moist mucous membranes and no mucosal ulcerations; normal hard and soft palate. No obvious breaks in mucosal service or sores noted. Neck: Trachea midline; supple, no thyromegaly or lymphadenopathy Cardiac: RRR, no murmur, +S1/S2 Pulmonary: CTA bilaterally, no wheezes, rales or rhonchi, equal chest expansion Abdomen: soft, nontender, no guarding. No masses or hepatosplenomegaly MSK: Patient's range of motion in the upper and lower extremities is limited secondary to pain. Shoulders: Patient has unable to abduct shoulders due to pain. Left shoulder has mild tenderness to palpation however not significantly erythematous or edematous. Passive range of motion was limited secondary to pain Left knee: Wrapped with Terrell bandage tightly in preparation for orthopedic surgery. Tenderness to palpation is present even through Terrell bandage. Appears edematous even through tight wrapping. Right knee: Minimal edema is present, no erythema or hyperemia is present. Tenderness to palpation present POD #6 joint washout Hands: Significant edema present in hands, however no dactylitis is noted. When spaces appear uninflamed, no tenderness is noted on palpation. No inflammation is noted at the MCPs, PIPs, DIPs Ankles: Tender to mild palpation, however note edema or erythema is noted Skin: Normal temperature, turgor and texture; no rash, ulcers or subcutaneous no dules. Nail exam is normal. Neuro: moves all extremities, no focal deficits. Psych: Appropriate mood and behavior. A&Ox3 Objective Data 04/18/18 04:10 04/18/18 04:10 Immunology Rheumatoid Factor < 10 IU/mL (Less than 14) 04/11/18 11:35 Cycl Citrul Peptide IgG 6 Units (0-19) 04/09/18 13:08 All other labs normal. Consult Discharge Plan - Plan Referrals: Misael Lopez MD [Non-Partnered Physician] - (Patient is going to rehab no PCP appointment needed) Prescriptions: Apixaban [Eliquis] 5 mg PO BID 30 Days #60 tablet <Bob Morales W - Last Filed: 04/18/18 13:16> Exam Vital Signs, Last 4 Hours Temp Pulse Resp BP Pulse Ox 04/18/18 11:46 99.4 F 93 20 106/59 98 Objective Data 04/18/18 11:37 04/18/18 04:10 Immunology Rheumatoid Factor < 10 IU/mL (Less than 14) 04/11/18 11:35 Cycl Citrul Peptide IgG 6 Units (0-19) 04/09/18 13:08 All other labs normal. - Attending Attestation I examined this patient and my medical decision making was reviewed with the resident physician. I agree with the documented findings, disposition and treatment as described with these exceptions. Since last appointment, patient has been diagnosed with sepsis and MRSA bacteremia from blood cultures and synovial fluid. No fluid from left shoulder. Left knee with gram positive cocci. Leukocytosis improving. Vitals stabilizing. On exam: patient is uncomfortable, right knee effusion and left knee wrapped. Patient apprehensive to actively move extremities. Edema noted peripherally. ID following and covering with antibiotics; echo completed Ortho following, patient now POD #6 from right knee washout. Going to OR today for left knee. At this time, patient has septic oligoarthritis and inflammatory arthritis. I believe primary concern is to treat the infection, but I do wonder if some of the other inflammatory features could be due to crystal arthritis from CPPD though treatment somewhat limited given overall clinical situation. RF/CCP negative. Significant osteoarthritis at baseline. Patient to go to OR today. At this time, would continue management per medicine, ortho and ID. From a rheumatologic standpoint, would wait till infections treated and patient more stable before attributing her symptoms to another autoimmune or inflammatory cause. Will be out of hospital till Saturday and if needed to evaluate can reevalaute then.
--- NOTE | 2018-04-18 09:02 | Internal Med Progress Note ---
<Levar Oneil S - Last Filed: 04/18/18 09:00> Hospitalist Progress Note - Encounter Date of Encounter: 04/18/18 Time of Encounter: 09:00 - Subjective Interval History: Pt is seen at the bedside. She is hospital day 11. The pt was admitted with c/o left shoulder and right knee pain on 04/06. She had been experiencing increasing pain over the last 6mos and was unable to complete her ADLs due to the worsening joint pain. The pt family reported intermittent episodes of confusion. Ortho was consulted to see the pt and they recommended outpatient management with PTOT and sports medicine. They recommended rheumatology consult. The pt then experienced A fib with RVR and was put on IV heparin anticoagulation as per cardiology and lopressor. - currently the pt has beta blockers held 2/2 hypotension Rheumatology saw the pt on 04/10 after a rigth knee arthrocentesis was performed . 10cc yellow, purulent fluid was obtained and fluid analysis showed CPPD crystals and g(+) cocci. -ortho and rheumatology discussed the case and the pt was brought to the OR for arthroscopy on 04/1104/15/18 - Pulmonology consulted for b/l pleural effusions, pt opted to try diuresis instead of an invasive procedure. Pulm has since signed off The pt reports some discomfort in her arm, which is same as yesterday. She denies CP, SOB, N/V/D. She does have pain in her lower back and neck still. Pt has some anxiety about procedure. Her left knee is bothering her immensely this morning. She is to go for washout today with ortho. - Exam Vitals: Temp Pulse Resp BP Pulse Ox 99.9 F H 99 24 107/55 95 04/18/18 08:00 04/18/18 08:00 04/18/18 08:00 04/18/18 08:00 04/18/18 08:00 Exam: Constitutional: Alert and oriented 3 mildly distressed secondary to pain HEENT: Normocephalic, atraumatic, moist mucus membranes Heart: Regular rhythm, no murmurs, no edema Lungs: lungs clear and equal bilaterally, no rhonchi, no wheeze Abdomen: Soft, normal bowel sounds, no rigidity Extremities: erythema noted at B/L knees, left knee swollen, no shoulder pain elicited upon palpation, no calf tenderness, nonpitting edema of the left upper extremity has improved, lt hand swollen and tender to touch Skin: warm and dry, no lesions, no rashes, no jaundice Psych: thought content congruent, normal mood and normal affect Neurological: Alert and oriented x 3 - Assessment and Plan (1) Sepsis Current Visit: Yes Status: Acute Assessment and Plan: Likely secondary to septic joint Blood cx (+) for MRSA, wound cx (+) for MRSA, repeat blood cx resulted 04/14 and was positive for g(+) cocci and 04/16 (+) for g (+) cocci - Pt currently meets sepsis criteria HR 99 Elevated white count at 11.5 low grade temp 99.9, continue to monitor vitals - 04/11/18 underwent right knee arthroscopy irrigation debridement - medial and lateral menisci were evaluated. No tear of the medial or lateral meniscus was identified. - ACL and PCL w/o pathology. - right knee arthrocentesis was performed on 04/09 --- 10cc yellow, purulent fluid was obtained and fluid analysis showed CPPD crystals and g(+) cocci. - Ortho plans to consult IR for aspiration drain left knee today if s/s persisted until today - ESR on 04/15 was 85, increased to 111 on 04/17 Plan: - Vancomycin day 9, zosyn day 4 -ID following As per ID, will most likely need 4-6 wks of abx tx Plan for midline or PICC placement when closer to discharge - Ortho following Pt to go for washout of left joint today NPO currently - CRP pending - re-consult rheumatology, rheum to see this morning (2) Anemia Current Visit: Yes Status: Acute Assessment and Plan: May be 2/2 to sepsis Hemoglobin trending down. -admission hemoglobin 11.3 ---> 10.9 ---> 8.6 ---> 8.5 ----> 04/14/18 hemoglobin 7.3 -currently on heparin drip - pt was given 1 unit of RBC 04/14, hgb improved to 9, was 9.5 on 04/16 04/17 - hemoglobin 8.3, 04/18 - 8.0 Plan: - FOBT pending - continue to monitor cbc - check H&H at 10am - hold heparin, will call heme onc for anticoagulation recommendations (3) Pneumonia Current Visit: Yes Status: Suspected Assessment and Plan: Pt has been having temperature spikes, overnight t max was 100.5 - WBC 04/18: 11.5 - CXR on 04/14/18 showed bilateral effusions with bibasilar airspace disease - CT scan of chest showed Mod/large right pleural effusion, mod left pleural effusion w/ adjacent atelectasis or pneumonia at the bases Pulmonary vascular congestion - Blood cx showed g(+) cocci - Pt currently meets sepsis criteria HR 99 Elevated white count Source of infxn = blood (+) for gram positive cocci Repeat blood cx 04/16 (+) for gram positive cocci Plan: - continue vancomycin day 9, Zosyn day 4 - ID following - pt is getting Lasix 20mg IVP BID for pulmonary vascular congestion; will not perform thoracentesis as per pulmonology unless breathing status deteroirates Pulmonology signed off - follow cbc/cmp (4) Deep venous thrombosis of left upper extremity Current Visit: Yes Status: Acute Assessment and Plan: Pt has been reporting LUE pain -US ordered 04/14 revealed DVT in the left brachial and radial veins of the LUE Hemoglobin has continued to drop. Today is 8.0, yesterday was 9.3. Plan: - continue heparin drip , hemoglobin continues to drop - consult heme onc - H&H pending - will speak to pharmacy about transitioning to eliquis and continuing anticoagulation after discharge (5) Atrial fibrillation with RVR Current Visit: Yes Status: Resolved Assessment and Plan: New onset A fib RVR -cardiology consulted and signed off -Troponin <0.03 x 2 -ECHO on 04/10 showed LVEF 65-70%, normal LV systolic and diastolic fxn, no significant valvular dysfxn Currently in sinus rhythm, HR 83 -CHADVASc of 4 Plan: - amiodarone drip d/c as per cardiology - Lopressor 25mg PO adal as per cardiology - on Heparin drip as per protocol, pt had run of A fib RVR 04/13 as per nursing staff - on telemetry (6) Shoulder subluxation, left Current Visit: Yes Status: Acute (7) Arthritis of right knee Current Visit: Yes Status: Acute Assessment and Plan: Pt has hx of severe OA, fam hx of rheumatoid arthritis Ortho to take pt for washout of left knee today Plan: - right knee arthroscopy irrigation and debridement with Dr. Fournier 6 days ago - joint aspiration cultures positive for gram-positive cocci, repeat blood cx showed g(+) cocci - vancomycin day 9 - zosyn day 4 (8) Type 1 diabetes Current Visit: Yes Status: Acute Assessment and Plan: Glucose this morning 167 -continue determir, increased to 15U -continue sliding scale as per protocol (9) Hyponatremia Current Visit: Yes Status: Acute Assessment and Plan: Sodium this morning 132 Plan: - discontinue 75cc/hr 0.9% NS - lisinopril and HCTZ held - check BMP in the morning (10) Abnormal TSH Current Visit: Yes Status: Acute Assessment and Plan: TSH 0.248 -FT4 1.25, FT3 3.11 -likely subclinical hypothyroidism -follow up outpatient (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 Plan: - Replaced with oral supplement - continue to monitor electrolytes (14) DVT prophylaxis Current Visit: Yes Status: Acute Assessment and Plan: heparin drip held (15) Acute respiratory failure Current Visit: Yes Status: Resolved Assessment and Plan: See plan as above for pneumonia. - pt unable to tolerate lowering oxygen - 95% on 2L - Time Spent with Patient Total time spent is greater than 50% in coordination of care (as documented) at patient's floor/unit and/or counseling patient: less than 15 minutes Plan of Care Discussed with: patient Internal Medicine: Result - Labs CBC & Chem 7: 04/18/18 04:10 04/18/18 04:10 Labs: Short CBC 04/17/18 04/18/18 Range/Units 15:16 04:10 WBC 11.5 H (4.3-11.1) K/mcL Hgb 9.3 L 8.0 L (11.5-15.4) g/dL Hct 28.2 L 24.4 L (35.3-44.9) % Plt Count 662 H (140-400) K/mcL Neutrophils # 9.5 H (1.6-8.9) K/mcL BMP 04/18/18 04:10 Sodium 131 L Potassium 3.3 L Chloride 95 L Carbon Dioxide 27 BUN 14 Creatinine 0.44 L Glucose 95 Calcium 7.5 L Liver Function 04/18/18 Range/Units 04:10 Total Bilirubin 0.7 (0.3-1.0) mg/dL AST 16 (13-39) Units/L ALT 10 (7-52) Units/L Alkaline Phosphatase 200 H (34-104) Units/L Albumin 1.7 L (3.5-5.7) g/dL - ABG Interpretation ABG results: PT/INR, D-dimer PT 14.8 Seconds (9.4-12.1) H 04/17/18 18:35 D-Dimer 5840 ng/mLFEU (0-500) H 04/10/18 11:00 Consult Discharge Plan - Plan Referrals: Misael Lopez MD [Non-Partnered Physician] - (Patient is going to rehab no PCP appointment needed) Prescriptions: Apixaban [Eliquis] 5 mg PO BID 30 Days #60 tablet <Joseph Arciniega - Last Filed: 04/18/18 15:38> Hospitalist Progress Note - Exam Vitals: Temp Pulse Resp BP Pulse Ox 99.4 F 93 20 106/59 98 04/18/18 11:46 04/18/18 11:46 04/18/18 11:46 04/18/18 11:46 04/18/18 11:46 - Assessment and Plan (1) Shoulder subluxation, left Current Visit: Yes Status: Acute (2) Arthritis of right knee Current Visit: Yes Status: Acute (3) Type 1 diabetes Current Visit: Yes Status: Acute (4) Hyponatremia Current Visit: Yes Status: Acute (5) Abnormal TSH Current Visit: Yes Status: Acute (6) DVT prophylaxis Current Visit: Yes Status: Acute (7) Calcium pyrophosphate arthropathy Current Visit: Yes Status: Acute (8) Atrial fibrillation with RVR Current Visit: Yes Status: Resolved (9) Sepsis Current Visit: Yes Status: Acute (10) Bacteremia Current Visit: Yes Status: Acute (11) Hypokalemia Current Visit: Yes Status: Acute (12) Anemia Current Visit: Yes Status: Acute (13) Deep venous thrombosis of left upper extremity Current Visit: Yes Status: Acute (14) Pneumonia Current Visit: Yes Status: Suspected (15) Acute respiratory failure Current Visit: Yes Status: Resolved - Time Spent with Patient Total time spent is greater than 50% in coordination of care (as documented) at patient's floor/unit and/or counseling patient: Internal Medicine: Result - Labs CBC & Chem 7: 04/18/18 11:37 04/18/18 04:10 Labs: Short CBC 04/18/18 04/18/18 Range/Units 04:10 11:37 WBC 11.5 H (4.3-11.1) K/mcL Hgb 8.0 L 8.3 L (11.5-15.4) g/dL Hct 24.4 L 25.6 L (35.3-44.9) % Plt Count 662 H (140-400) K/mcL Neutrophils # 9.5 H (1.6-8.9) K/mcL BMP 04/18/18 04:10 Sodium 131 L Potassium 3.3 L Chloride 95 L Carbon Dioxide 27 BUN 14 Creatinine 0.44 L Glucose 95 Calcium 7.5 L Liver Function 04/18/18 Range/Units 04:10 Total Bilirubin 0.7 (0.3-1.0) mg/dL AST 16 (13-39) Units/L ALT 10 (7-52) Units/L Alkaline Phosphatase 200 H (34-104) Units/L Albumin 1.7 L (3.5-5.7) g/dL - ABG Interpretation ABG results: PT/INR, D-dimer PT 14.8 Seconds (9.4-12.1) H 04/17/18 18:35 D-Dimer 5840 ng/mLFEU (0-500) H 04/10/18 11:00 - Attending Attestation I examined this patient and my medical decision-making was reviewed with the Resident Physician. I agree with the documented findings, disposition and treatment plan as described except to the extent set forth below. <Levar Oneil - Last Filed: 04/18/18 09:00> (1) Sepsis Qualifiers: Sepsis type: sepsis due to unspecified organism Qualified Code(s): A41.9 - Sepsis, unspecified organism (2) Anemia Qualifiers: Anemia type: unspecified type Qualified Code(s): D64.9 - Anemia, unspecified (3) Pneumonia Qualifiers: Pneumonia type: due to unspecified organism Laterality: bilateral Lung location: unspecified part of lung Qualified Code(s): J18.9 - Pneumonia, unspecified organism (4) Deep venous thrombosis of left upper extremity Qualifiers: Affected thrombotic vein of extremity: brachial Chronicity: acute Qualified Code(s): I82.622 - Acute embolism and thrombosis of deep veins of left upper extremity (6) Shoulder subluxation, left Qualifiers: Encounter type: initial encounter Qualified Code(s): S43.002A - Unspecified subluxation of left shoulder joint, initial encounter (8) Type 1 diabetes Qualifiers: Diabetes mellitus complication status: with unspecified complications Qualified Code(s): E10.8 - Type 1 diabetes mellitus with unspecified complications (15) Acute respiratory failure Qualifiers: Respiratory failure complication: hypoxia Qualified Code(s): J96.01 - Acute respiratory failure with hypoxia <Joseph Arciniega - Last Filed: 04/18/18 15:38> (1) Shoulder subluxation, left Qualifiers: Encounter type: initial encounter Qualified Code(s): S43.002A - Unspecified subluxation of left shoulder joint, initial encounter (3) Type 1 diabetes Qualifiers: Diabetes mellitus complication status: with unspecified complications Qualified Code(s): E10.8 - Type 1 diabetes mellitus with unspecified complications (9) Sepsis Qualifiers: Sepsis type: sepsis due to unspecified organism Qualified Code(s): A41.9 - Sepsis, unspecified organism (12) Anemia Qualifiers: Anemia type: unspecified type Qualified Code(s): D64.9 - Anemia, unspecified (13) Deep venous thrombosis of left upper extremity Qualifiers: Affected thrombotic vein of extremity: brachial Chronicity: acute Qualified Code(s): I82.622 - Acute embolism and thrombosis of deep veins of left upper extremity (14) Pneumonia Qualifiers: Pneumonia type: due to unspecified organism Laterality: bilateral Lung location: unspecified part of lung Qualified Code(s): J18.9 - Pneumonia, unspecified organism (15) Acute respiratory failure Qualifiers: Respiratory failure complication: hypoxia Qualified Code(s): J96.01 - Acute respiratory failure with hypoxia
--- NOTE | 2018-04-18 10:15 | Infectious Disease Progress No ---
Date of Encounter: 04/18/18 Time of Encounter: 10:12 - Assessment and Plan (1) Sepsis Current Visit: Yes Status: Acute The patient had 2 sepsis criteria plus altered mental status. Likely secondary to bacteremia and right knee septic arthritis. Improved. WBC trending down. Tachycardia improved, but had fever last night and became tachycardic. Tmax 101.2 in the last 24 hours. Blood cultures drawn 04/10/18 are +2 out of 2 sets for MRSA. Repeat blood cultures drawn 04/13/18 are positive 2/2 sets. Additional blood cultures drawn 04/14/18 are positive 2/2 sets. Repeat blood cultures drawn 04/16/18 are positive 2/2 sets. Repeat blood cultures x 2 sets in the AM. Qualifiers: Sepsis type: sepsis due to unspecified organism Qualified Code(s): A41.9 - Sepsis, unspecified organism (2) Bacteremia Current Visit: Yes Status: Acute Causative organism: MRSA. Source: Right knee septic arthritis. Concern for additional source given the patient's persistent joint pain and persistently positive blood cultures. Blood cultures drawn 04/10/18 are +2 out of 2 sets. Repeat blood cultures drawn 04/13/18 are positive 2/2 sets. Additional cultures drawn 04/14/18 are positive 2/2 sets. Repeat blood cultures drawn 04/16/18 are positive 2/2 sets. Complicated due to the presence of septic arthritis of the right knee and persistent bacteremia. The patient has no indwelling hardware or pacemaker. The patient has one major and one minor Modified [place] criteria. She does not have any endocarditis stigmata noted on exam. Transthoracic echocardiogram negative for vegetations. Get IDALIA prior to discharge. Check rheumatoid factor.--> <10. Continue vancomycin IV. Pharmacy to dose. Goal trough proximally 15. Vanc trough 04/15/18 14. Continue Daptomycin 8mg/kg IV daily. (day 2) Check baseline CK level. --> 11. Duration of treatment depends on the clinical picture, but likely 4-6 weeks. Monitor renal function for drug toxicity and dose adjust antibiotics. Continue contact precautions per hospital policy. Avoid insertion of long-term IV access until repeat blood cultures are negative x 48 hours. Further OPAT recommendations to follow pending clinical and culture outcomes. (3) Septic arthritis of knee, right Current Visit: Yes Status: Acute Location: Right knee. Causative organism: MRSA MRI of the right knee showed a moderate joint effusion. The sterility of joint fluid was indeterminate on imaging and an infectious process could not be excluded. Rheumatology consult and following. Status post bedside arthrocentesis that revealed cloudy purulent fluid. Cell count with differential could not be performed due to the viscosity of the specimen. Orthopedics consulted. Status post arthroscopic I & D 04/11/[address] Fournier. Operative note reviewed. Pus noted intra-op. Cultures as above. Continue antibiotics as stated above. Duration of treatment and clinical picture, but likely 4 weeks of IV antibiotics. Monitor renal function for drug toxicity and does just antibiotics. Wound care and activity restrictions per the ortho team. Qualifiers: Septic arthritis organism: staphylococcal Qualified Code(s): M00.061 - Staphylococcal arthritis, right knee (4) Pleural effusion Current Visit: Yes Status: Acute Location: Bilateral. CT of the chest showed moderate to large right and moderate left pleural effusion with adjacent atelectasis and/or pneumonia notable at lung bases. Etiology unclear: reactive vs. infectious vs. other. Pulmonology consulted. Appreciate recommendations. Continue antibiotics as above. (5) Pneumonia Current Visit: Yes Status: Suspected Location: Bilateral bases. Causative organism: Unclear. CXR showed bilateral pleural effusions with bibasilar airspace disease, likely PNA. CT of the chest showed moderte to large right pleural effusion and moderate left pleural effusion with adjacent atelectasis and/or pneumonia notable at lung bases. Recommend pulmonary to evaluate. Check RIP.--> negative. Check S. pneumo and Legionella UATs.--> negative. Continue Zosyn 3.375 grams IV Q8H. (day 4) Continue Vancomycin IV. Pharmacy to dose. Goal trough ~15. Duration of treatment depends on the clinical picture. Monitor renal function and for drug toxicity and dose-adjust antibiotics. Qualifiers: Pneumonia type: due to unspecified organism Laterality: bilateral Lung location: unspecified part of lung Qualified Code(s): J18.9 - Pneumonia, unspecified organism (6) Altered mental status Current Visit: Yes Status: Resolved Likely secondary to sepsis. Improved. Continue to monitor closely. Qualifiers: Altered mental status type: unspecified Qualified Code(s): R41.82 - Altered mental status, unspecified (7) Shoulder subluxation, left Current Visit: Yes Status: Acute Noted on imaging. IR consulted and aspiration of the joint unsuccessful. Patient reports pain is improved. Orthopedics consulted. Qualifiers: Encounter type: initial encounter Qualified Code(s): S43.002A - Unspecified subluxation of left shoulder joint, initial encounter (8) Hyponatremia Current Visit: Yes Status: Acute (9) Calcium pyrophosphate arthropathy Current Visit: Yes Status: Acute Rheumatology consulted and signed off. Plan to follow up as outpatient. (10) Atrial fibrillation with RVR Current Visit: Yes Status: Resolved Liquids secondary to sepsis. Cardiology consulted and signed off. Rate controlled. (11) Oral lesion Current Visit: Yes Status: Acute Clinically, does not appear to be thrush. HSV PCR positive. Valacyclovir 2 grams PO Q12H x 1 day. Continue magic mouthwash with lidocaine. (12) Joint pain Current Visit: Yes Status: Acute Location: left knee Likely infectious. Given the persistent bacteremia, concern for uncontrolled source with infected joint. Repeat ESR and CRP worse. Imaging on hold. Status post bedside arthrocentesis of the left knee with TNC 4400 with 76% neutrophils. Gram stain positive for few GPC, culture pending. Planning for washout of the left knee later today. Pain management per the primary team. Qualifiers: Joint pain location: knee Laterality: left Qualified Code(s): M25.562 - Pain in left knee - Subjective Interval history: Patient seen and examined with family at the bedside. No acute events noted overnight. Status post bedside arthrocentesis of the left knee 04/17/18. TNC 4700 with 76% neutrophils. Gram stain showed few GPC. Planning for washout later today. Patient states overall she feels a little better today. She reports pain in the bilateral knees and lower back. Shortness of breath has improved. Denies chest pain or cough. She denies nausea, vomiting, or diarrhea. Denies abdominal pain. NPO currently, but had half of a cheeseburger last night. Donohue catheter remains patent. Denies new skin rashes. Oral lesions improved. Infect Dis PN-Objective Data - Labs CBC & Chem 7: 04/18/18 11:37 04/18/18 04:10 Labs: Laboratory Results - last 24 hr 04/17/18 04/17/18 04/17/18 03:45 07:44 09:00 WBC RBC Hgb Hct MCV MCH MCHC RDW Plt Count MPV Immature Gran % Seg Neutrophils % Lymphocytes % Monocytes % Eosinophils % Basophils % Neutrophils # Lymphocytes # Monocytes # Eosinophils # Basophils # ESR 111 H PT INR Heparin Anti-Xa, Unfract Sodium Potassium Chloride Carbon Dioxide BUN Creatinine Est GFR ( Amer) Est GFR (Non-Af Amer) BUN/Creatinine Ratio Glucose POC Glucose 113 H Calculated Osmolality Calcium Phosphorus 3.3 Magnesium 1.6 Total Bilirubin AST ALT Alkaline Phosphatase Creatine Kinase C-Reactive Protein Serum Total Protein Albumin Globulin Albumin/Globulin Ratio Random Cortisol Synovial Source Synovial Color Synovial Appearance Synovial Volume Synovial RBC Synovial Tot Nuc Cell Synovial Band Neuts Synovial Basophils Synovial Eosinophils Synovial Seg Neuts % Synovial Lymphocytes % Synovial Monocytes % Synovial Other Cells % Synovial Crystals Vancomycin Trough 04/17/18 04/17/18 04/17/18 09:00 09:04 10:30 WBC RBC Hgb Hct MCV MCH MCHC RDW Plt Count MPV Immature Gran % Seg Neutrophils % Lymphocytes % Monocytes % Eosinophils % Basophils % Neutrophils # Lymphocytes # Monocytes # Eosinophils # Basophils # ESR PT INR Heparin Anti-Xa, Unfract 0.53 Sodium Potassium Chloride Carbon Dioxide BUN Creatinine Est GFR ( Amer) Est GFR (Non-Af Amer) BUN/Creatinine Ratio Glucose POC Glucose Calculated Osmolality Calcium Phosphorus Magnesium Total Bilirubin AST ALT Alkaline Phosphatase Creatine Kinase C-Reactive Protein 166 H Serum Total Protein Albumin Globulin Albumin/Globulin Ratio Random Cortisol 16.4 Synovial Source Synovial Color Synovial Appearance Synovial Volume Synovial RBC Synovial Tot Nuc Cell Synovial Band Neuts Synovial Basophils Synovial Eosinophils Synovial Seg Neuts % Synovial Lymphocytes % Synovial Monocytes % Synovial Other Cells % Synovial Crystals Vancomycin Trough 04/17/18 04/17/18 04/17/18 11:05 15:16 16:50 WBC RBC Hgb 9.3 L Hct 28.2 L MCV MCH MCHC RDW Plt Count MPV Immature Gran % Seg Neutrophils % Lymphocytes % Monocytes % Eosinophils % Basophils % Neutrophils # Lymphocytes # Monocytes # Eosinophils # Basophils # ESR PT INR Heparin Anti-Xa, Unfract Sodium Potassium Chloride Carbon Dioxide BUN Creatinine Est GFR ( Amer) Est GFR (Non-Af Amer) BUN/Creatinine Ratio Glucose POC Glucose 202 H 197 H Calculated Osmolality Calcium Phosphorus Magnesium Total Bilirubin AST ALT Alkaline Phosphatase Creatine Kinase C-Reactive Protein Serum Total Protein Albumin Globulin Albumin/Globulin Ratio Random Cortisol Synovial Source Synovial Color Synovial Appearance Synovial Volume Synovial RBC Synovial Tot Nuc Cell Synovial Band Neuts Synovial Basophils Synovial Eosinophils Synovial Seg Neuts % Synovial Lymphocytes % Synovial Monocytes % Synovial Other Cells % Synovial Crystals Vancomycin Trough 04/17/18 04/17/18 04/17/18 16:55 18:35 19:23 WBC RBC Hgb Hct MCV MCH MCHC RDW Plt Count MPV Immature Gran % Seg Neutrophils % Lymphocytes % Monocytes % Eosinophils % Basophils % Neutrophils # Lymphocytes # Monocytes # Eosinophils # Basophils # ESR PT 14.8 H INR 1.3 Heparin Anti-Xa, Unfract Sodium Potassium Chloride Carbon Dioxide BUN Creatinine Est GFR ( Amer) Est GFR (Non-Af Amer) BUN/Creatinine Ratio Glucose POC Glucose Calculated Osmolality Calcium Phosphorus Magnesium Total Bilirubin AST ALT Alkaline Phosphatase Creatine Kinase 11 L C-Reactive Protein Serum Total Protein Albumin Globulin Albumin/Globulin Ratio Random Cortisol Synovial Source left knee Synovial Color Julianne Synovial Appearance Hazy Synovial Volume Test Not Performed Synovial RBC 0.250 H Synovial Tot Nuc Cell 4770 H Synovial Band Neuts Test Not Performed Synovial Basophils Test Not Performed Synovial Eosinophils Test Not Performed Synovial Seg Neuts % 76.0 Synovial Lymphocytes % 22.0 Synovial Monocytes % Test Not Performed Synovial Other Cells % 2.0 Synovial Crystals No Crystals Seen Vancomycin Trough 04/17/18 04/18/18 04/18/18 20:17 04:10 04:10 WBC 11.5 H RBC 2.74 L Hgb 8.0 L Hct 24.4 L MCV 89.1 MCH 29.2 MCHC 32.8 RDW 14.7 H Plt Count 662 H MPV 10.0 Immature Gran % 1.1 Seg Neutrophils % 82.7 Lymphocytes % 10.1 Monocytes % 4.9 Eosinophils % 0.9 Basophils % 0.3 Neutrophils # 9.5 H Lymphocytes # 1.2 Monocytes # 0.6 Eosinophils # 0.1 Basophils # 0.0 ESR PT INR Heparin Anti-Xa, Unfract Sodium 131 L Potassium 3.3 L Chloride 95 L Carbon Dioxide 27 BUN 14 Creatinine 0.44 L Est GFR ( Amer) > 60 Est GFR (Non-Af Amer) > 60 BUN/Creatinine Ratio 32 H Glucose 95 POC Glucose 160 H Calculated Osmolality 272 L Calcium 7.5 L Phosphorus Magnesium Total Bilirubin 0.7 AST 16 ALT 10 Alkaline Phosphatase 200 H Creatine Kinase C-Reactive Protein Serum Total Protein 5.0 L Albumin 1.7 L Globulin 3.3 Albumin/Globulin Ratio 0.5 L Random Cortisol Synovial Source Synovial Color Synovial Appearance Synovial Volume Synovial RBC Synovial Tot Nuc Cell Synovial Band Neuts Synovial Basophils Synovial Eosinophils Synovial Seg Neuts % Synovial Lymphocytes % Synovial Monocytes % Synovial Other Cells % Synovial Crystals Vancomycin Trough 04/18/18 04/18/18 04/18/18 04:10 07:50 07:53 WBC RBC Hgb Hct MCV MCH MCHC RDW Plt Count MPV Immature Gran % Seg Neutrophils % Lymphocytes % Monocytes % Eosinophils % Basophils % Neutrophils # Lymphocytes # Monocytes # Eosinophils # Basophils # ESR PT INR Heparin Anti-Xa, Unfract Sodium Potassium Chloride Carbon Dioxide BUN Creatinine Est GFR ( Amer) Est GFR (Non-Af Amer) BUN/Creatinine Ratio Glucose POC Glucose 58 L 56 L Calculated Osmolality Calcium Phosphorus Magnesium Total Bilirubin AST ALT Alkaline Phosphatase Creatine Kinase C-Reactive Protein Serum Total Protein Albumin Globulin Albumin/Globulin Ratio Random Cortisol Synovial Source Synovial Color Synovial Appearance Synovial Volume Synovial RBC Synovial Tot Nuc Cell Synovial Band Neuts Synovial Basophils Synovial Eosinophils Synovial Seg Neuts % Synovial Lymphocytes % Synovial Monocytes % Synovial Other Cells % Synovial Crystals Vancomycin Trough TNP Cultures: Cultures 04/17/18 19:23 Body Fluid Culture - Preliminary Synovial Fluid 04/11/18 18:25 Anaerobic Culture - Final Right Knee No anaerobes were recovered. 04/16/18 01:28 Blood Culture - Preliminary Peripheral Venipuncture Gram Positive Cocci 04/16/18 01:28 Blood Culture - Preliminary Peripheral Venipuncture Gram Positive Cocci 04/14/18 04:20 Blood Culture - Final Peripheral Venipuncture Methicillin Resistant S.aureus 04/14/18 04:20 Blood Culture - Final Peripheral Venipuncture Methicillin Resistant S.aureus 04/15/18 16:15 Legionella Antigen - Final Urine,Clean Catch Streptococcus pneumoniae Antigen (M - Final 04/13/18 05:46 Blood Culture - Final Peripheral Venipuncture Methicillin Resistant S.aureus 04/13/18 05:34 Blood Culture - Preliminary Peripheral Venipuncture Gram Positive Cocci - Clusters 04/11/18 18:25 Wound Culture - Final Right Knee Methicillin Resistant S.aureus 04/10/18 11:00 Blood Culture - Final Peripheral Venipuncture Methicillin Resistant S.aureus 04/10/18 11:10 Blood Culture - Final Peripheral Venipuncture Methicillin Resistant S.aureus 04/09/18 12:30 Body Fluid Culture - Final Synovial Fluid Methicillin Resistant S.aureus Serology 04/17/18 04/16/18 04/16/18 Range/Units 19:23 10:40 01:28 Ur Specimen Adequacy Urine Color (Yellow) Urine Clarity (Clear) Urine pH (5.0-8.0) pH Units Ur Specific [place] (1.010-1.025) Urine Protein (Neg-Trace) mg/dL Urine Glucose (UA) (Normal) mg/dL Urine Ketones (Negative) mg/dL Urine Blood (Negative) Urine Nitrite (Negative) Urine Bilirubin (Negative) Urine Urobilinogen (Normal) mg/dL Ur Leukocyte Esterase (Negative) Urine Microscopic RBC (0-3) per hpf Urine Microscopic WBC (0-3) per hpf Ur Squamous Epith Cells (None-Few) per lpf Urine Bacteria (None-Few) per hpf Hyaline Casts Ur Culture Indicated? (NO) Urine Osmolality (300-1090) mOsm/kg Urine Sodium mEq/L Fluid Crystals (None Seen) Synovial Source left knee Synovial Color Julianne (Straw) Synovial Appearance Hazy (Clear-Hazy) Synovial Volume Test Not Performed mL Synovial RBC 0.250 H Synovial Tot Nuc Cell 4770 H Synovial Band Neuts Test Not Performed Synovial Basophils Test Not Performed Synovial Eosinophils Test Not Performed Synovial Seg Neuts % 76.0 % Synovial Lymphocytes % 22.0 % Synovial Monocytes % Test Not Performed % Synovial Other Cells % 2.0 Synovial Crystals No Crystals Seen (None Seen) A. baumannii (PCR) Not Detected (Not Detect) Chlamy pneumoniae PCR (Not Detect) Adenovirus (PCR) (Not Detect) B. pertussis DNA (PCR) (Not Detect) B.parapertussis DNA PCR (Not Detect) Kirti albicans (PCR) Not Detected (Not Detect) C. glabrata (PCR) Not Detected (Not Detect) C. krusei (PCR) Not Detected (Not Detect) C. parapsilosis (PCR) Not Detected (Not Detect) C. tropicalis (PCR) Not Detected (Not Detect) Coronavirus OC43 (PCR) (Not Detect) Coronavirus HKU1 (PCR) (Not Detect) Coronavirus 229E (PCR) (Not Detect) Coronavirus NL63 (PCR) (Not Detect) Enterobacteriac sp PCR Not Detected (Not Detect) E. cloacae complex PCR Not Detected (Not Detect) Enterococcus sp PCR Not Detected (Not Detect) E. coli (PCR) Not Detected (Not Detect) H. influenzae (PCR) Not Detected (Not Detect) Herpes Simplex Source [place] HSV I DETECTED A (Not Detect) HSV II Not Detected (Not Detect) Human Metapneumovir PCR (Not Detect) Influenza A (H1) PCR (Not Detect) Influ A (H1N1/09) PCR (Not Detect) Influenza A (H3) PCR (Not Detect) Influenza A Untype (PCR) (Not Detect) Influenza Type B (PCR) (Not Detect) Klebsiella oxytoca PCR Not Detected (Not Detect) Klebsiella pneumoniae Not Detected (Not Detect) List. monocytogenes PCR Not Detected (Not Detect) M.pneumoniae DNA (PCR) (Not Detect) N. meningitidis (PCR) Not Detected (Not Detect) Parainfluenza 1 (PCR) (Not Detect) Parainfluenza 2 (PCR) (Not Detect) Parainfluenza 3 (PCR) (Not Detect) Parainfluenza 4 (PCR) (Not Detect) Proteus species (PCR) Not Detected (Not Detect) RSV (PCR) (Not Detect) Entero/Rhino (PCR) (Not Detect) Serratia marcescens PCR Not Detected (Not Detect) Staphylococcus sp PCR DETECTED A (Not Detect) Staph aureus (PCR) DETECTED A (Not Detect) mecA-Methicil Res Gene DETECTED A (Not Detect) Streptococcus sp PCR Not Detected (Not Detect) Group A Strep DNA Not Detected (Not Detect) Group B Strep (PCR) Not Detected (Not Detect) Strep pneumoniae (PCR) Not Detected (Not Detect) P. aeruginosa (PCR) Not Detected (Not Detect) [place]/B-Vanco Res Genes Not Detected (Not Detect) KPC (blaKPC) Detect PCR Not Detected (Not Detect) 04/15/18 04/13/18 04/10/18 Range/Units 16:12 05:46 16:41 Ur Specimen Adequacy Urine Color (Yellow) Urine Clarity (Clear) Urine pH (5.0-8.0) pH Units Ur Specific [place] (1.010-1.025) Urine Protein (Neg-Trace) mg/dL Urine Glucose (UA) (Normal) mg/dL Urine Ketones (Negative) mg/dL Urine Blood (Negative) Urine Nitrite (Negative) Urine Bilirubin (Negative) Urine Urobilinogen (Normal) mg/dL Ur Leukocyte Esterase (Negative) Urine Microscopic RBC (0-3) per hpf Urine Microscopic WBC (0-3) per hpf Ur Squamous Epith Cells (None-Few) per lpf Urine Bacteria (None-Few) per hpf Hyaline Casts Ur Culture Indicated? (NO) Urine Osmolality 407 (300-1090) mOsm/kg Urine Sodium mEq/L Fluid Crystals (None Seen) Synovial Source Synovial Color (Straw) Synovial Appearance (Clear-Hazy) Synovial Volume mL Synovial RBC Synovial Tot Nuc Cell Synovial Band Neuts Synovial Basophils Synovial Eosinophils Synovial Seg Neuts % % Synovial Lymphocytes % % Synovial Monocytes % % Synovial Other Cells % Synovial Crystals (None Seen) A. baumannii (PCR) Not Detected (Not Detect) Chlamy pneumoniae PCR Not Detected (Not Detect) Adenovirus (PCR) Not Detected (Not Detect) B. pertussis DNA (PCR) Not Detected (Not Detect) B.parapertussis DNA PCR Not Detected (Not Detect) Kirti albicans (PCR) Not Detected (Not Detect) C. glabrata (PCR) Not Detected (Not Detect) C. krusei (PCR) Not Detected (Not Detect) C. parapsilosis (PCR) Not Detected (Not Detect) C. tropicalis (PCR) Not Detected (Not Detect) Coronavirus OC43 (PCR) Not Detected (Not Detect) Coronavirus HKU1 (PCR) Not Detected (Not Detect) Coronavirus 229E (PCR) Not Detected (Not Detect) Coronavirus NL63 (PCR) Not Detected (Not Detect) Enterobacteriac sp PCR Not Detected (Not Detect) E. cloacae complex PCR Not Detected (Not Detect) Enterococcus sp PCR Not Detected (Not Detect) E. coli (PCR) Not Detected (Not Detect) H. influenzae (PCR) Not Detected (Not Detect) Herpes Simplex Source HSV I (Not Detect) HSV II (Not Detect) Human Metapneumovir PCR Not Detected (Not Detect) Influenza A (H1) PCR Not Detected (Not Detect) Influ A (H1N1/09) PCR Not Detected (Not Detect) Influenza A (H3) PCR Not Detected (Not Detect) Influenza A Untype (PCR) Not Detected (Not Detect) Influenza Type B (PCR) Not Detected (Not Detect) Klebsiella oxytoca PCR Not Detected (Not Detect) Klebsiella pneumoniae Not Detected (Not Detect) List. monocytogenes PCR Not Detected (Not Detect) M.pneumoniae DNA (PCR) Not Detected (Not Detect) N. meningitidis (PCR) Not Detected (Not Detect) Parainfluenza 1 (PCR) Not Detected (Not Detect) Parainfluenza 2 (PCR) Not Detected (Not Detect) Parainfluenza 3 (PCR) Not Detected (Not Detect) Parainfluenza 4 (PCR) Not Detected (Not Detect) Proteus species (PCR) Not Detected (Not Detect) RSV (PCR) Not Detected (Not Detect) Entero/Rhino (PCR) Not Detected (Not Detect) Serratia marcescens PCR Not Detected (Not Detect) Staphylococcus sp PCR DETECTED A (Not Detect) Staph aureus (PCR) DETECTED A (Not Detect) mecA-Methicil Res Gene DETECTED A (Not Detect) Streptococcus sp PCR Not Detected (Not Detect) Group A Strep DNA Not Detected (Not Detect) Group B Strep (PCR) Not Detected (Not Detect) Strep pneumoniae (PCR) Not Detected (Not Detect) P. aeruginosa (PCR) Not Detected (Not Detect) [place]/B-Vanco Res Genes N/A (Not Detect) KPC (blaKPC) Detect PCR N/A (Not Detect) 04/10/18 04/10/18 04/09/18 Range/Units 16:41 11:10 12:30 Ur Specimen Adequacy Urine Color (Yellow) Urine Clarity (Clear) Urine pH (5.0-8.0) pH Units Ur Specific [place] (1.010-1.025) Urine Protein (Neg-Trace) mg/dL Urine Glucose (UA) (Normal) mg/dL Urine Ketones (Negative) mg/dL Urine Blood (Negative) Urine Nitrite (Negative) Urine Bilirubin (Negative) Urine Urobilinogen (Normal) mg/dL Ur Leukocyte Esterase (Negative) Urine Microscopic RBC (0-3) per hpf Urine Microscopic WBC (0-3) per hpf Ur Squamous Epith Cells (None-Few) per lpf Urine Bacteria (None-Few) per hpf Hyaline Casts Ur Culture Indicated? (NO) Urine Osmolality (300-1090) mOsm/kg Urine Sodium 21.3 mEq/L Fluid Crystals (None Seen) Synovial Source RIGHT KNEE Synovial Color Straw (Straw) Synovial Appearance Cloudy A (Clear-Hazy) Synovial Volume 8.0 mL Synovial RBC TNP Synovial Tot Nuc Cell TNP Synovial Band Neuts Test Not Performed Synovial Basophils Test Not Performed Synovial Eosinophils Test Not Performed Synovial Seg Neuts % 2.0 % Synovial Lymphocytes % 84.0 % Synovial Monocytes % 14.0 % Synovial Other Cells % Test Not Performed Synovial Crystals (None Seen) A. baumannii (PCR) Not Detected (Not Detect) Chlamy pneumoniae PCR (Not Detect) Adenovirus (PCR) (Not Detect) B. pertussis DNA (PCR) (Not Detect) B.parapertussis DNA PCR (Not Detect) Kirti albicans (PCR) Not Detected (Not Detect) C. glabrata (PCR) Not Detected (Not Detect) C. krusei (PCR) Not Detected (Not Detect) C. parapsilosis (PCR) Not Detected (Not Detect) C. tropicalis (PCR) Not Detected (Not Detect) Coronavirus OC43 (PCR) (Not Detect) Coronavirus HKU1 (PCR) (Not Detect) Coronavirus 229E (PCR) (Not Detect) Coronavirus NL63 (PCR) (Not Detect) Enterobacteriac sp PCR Not Detected (Not Detect) E. cloacae complex PCR Not Detected (Not Detect) Enterococcus sp PCR Not Detected (Not Detect) E. coli (PCR) Not Detected (Not Detect) H. influenzae (PCR) Not Detected (Not Detect) Herpes Simplex Source HSV I (Not Detect) HSV II (Not Detect) Human Metapneumovir PCR (Not Detect) Influenza A (H1) PCR (Not Detect) Influ A (H1N1/09) PCR (Not Detect) Influenza A (H3) PCR (Not Detect) Influenza A Untype (PCR) (Not Detect) Influenza Type B (PCR) (Not Detect) Klebsiella oxytoca PCR Not Detected (Not Detect) Klebsiella pneumoniae Not Detected (Not Detect) List. monocytogenes PCR Not Detected (Not Detect) M.pneumoniae DNA (PCR) (Not Detect) N. meningitidis (PCR) Not Detected (Not Detect) Parainfluenza 1 (PCR) (Not Detect) Parainfluenza 2 (PCR) (Not Detect) Parainfluenza 3 (PCR) (Not Detect) Parainfluenza 4 (PCR) (Not Detect) Proteus species (PCR) Not Detected (Not Detect) RSV (PCR) (Not Detect) Entero/Rhino (PCR) (Not Detect) Serratia marcescens PCR Not Detected (Not Detect) Staphylococcus sp PCR DETECTED A (Not Detect) Staph aureus (PCR) DETECTED A (Not Detect) mecA-Methicil Res Gene DETECTED A (Not Detect) Streptococcus sp PCR Not Detected (Not Detect) Group A Strep DNA Not Detected (Not Detect) Group B Strep (PCR) Not Detected (Not Detect) Strep pneumoniae (PCR) Not Detected (Not Detect) P. aeruginosa (PCR) Not Detected (Not Detect) [place]/B-Vanco Res Genes N/A (Not Detect) KPC (blaKPC) Detect PCR N/A (Not Detect) 04/09/18 04/06/18 Range/Units 12:30 11:55 Ur Specimen Adequacy See below A Urine Color Yellow (Yellow) Urine Clarity Clear (Clear) Urine pH 5.5 (5.0-8.0) pH Units Ur Specific [place] 1.014 (1.010-1.025) Urine Protein 30 H (Neg-Trace) mg/dL Urine Glucose (UA) 250 H (Normal) mg/dL Urine Ketones Negative (Negative) mg/dL Urine Blood Small H (Negative) Urine Nitrite Negative (Negative) Urine Bilirubin Negative (Negative) Urine Urobilinogen Normal (Normal) mg/dL Ur Leukocyte Esterase Negative (Negative) Urine Microscopic RBC 5-15 H (0-3) per hpf Urine Microscopic WBC 0-3 (0-3) per hpf Ur Squamous Epith Cells Many H (None-Few) per lpf Urine Bacteria None Seen (None-Few) per hpf Hyaline Casts Test Not Performed Ur Culture Indicated? NO (NO) Urine Osmolality (300-1090) mOsm/kg Urine Sodium mEq/L Fluid Crystals CPPD Crystals Seen A (None Seen) Synovial Source Synovial Color (Straw) Synovial Appearance (Clear-Hazy) Synovial Volume mL Synovial RBC Synovial Tot Nuc Cell Synovial Band Neuts Synovial Basophils Synovial Eosinophils Synovial Seg Neuts % % Synovial Lymphocytes % % Synovial Monocytes % % Synovial Other Cells % Synovial Crystals (None Seen) A. baumannii (PCR) (Not Detect) Chlamy pneumoniae PCR (Not Detect) Adenovirus (PCR) (Not Detect) B. pertussis DNA (PCR) (Not Detect) B.parapertussis DNA PCR (Not Detect) Kirti albicans (PCR) (Not Detect) C. glabrata (PCR) (Not Detect) C. krusei (PCR) (Not Detect) C. parapsilosis (PCR) (Not Detect) C. tropicalis (PCR) (Not Detect) Coronavirus OC43 (PCR) (Not Detect) Coronavirus HKU1 (PCR) (Not Detect) Coronavirus 229E (PCR) (Not Detect) Coronavirus NL63 (PCR) (Not Detect) Enterobacteriac sp PCR (Not Detect) E. cloacae complex PCR (Not Detect) Enterococcus sp PCR (Not Detect) E. coli (PCR) (Not Detect) H. influenzae (PCR) (Not Detect) Herpes Simplex Source HSV I (Not Detect) HSV II (Not Detect) Human Metapneumovir PCR (Not Detect) Influenza A (H1) PCR (Not Detect) Influ A (H1N1/09) PCR (Not Detect) Influenza A (H3) PCR (Not Detect) Influenza A Untype (PCR) (Not Detect) Influenza Type B (PCR) (Not Detect) Klebsiella oxytoca PCR (Not Detect) Klebsiella pneumoniae (Not Detect) List. monocytogenes PCR (Not Detect) M.pneumoniae DNA (PCR) (Not Detect) N. meningitidis (PCR) (Not Detect) Parainfluenza 1 (PCR) (Not Detect) Parainfluenza 2 (PCR) (Not Detect) Parainfluenza 3 (PCR) (Not Detect) Parainfluenza 4 (PCR) (Not Detect) Proteus species (PCR) (Not Detect) RSV (PCR) (Not Detect) Entero/Rhino (PCR) (Not Detect) Serratia marcescens PCR (Not Detect) Staphylococcus sp PCR (Not Detect) Staph aureus (PCR) (Not Detect) mecA-Methicil Res Gene (Not Detect) Streptococcus sp PCR (Not Detect) Group A Strep DNA (Not Detect) Group B Strep (PCR) (Not Detect) Strep pneumoniae (PCR) (Not Detect) P. aeruginosa (PCR) (Not Detect) Ivory/B-Vanco Res Genes (Not Detect) KPC (blaKPC) Detect PCR (Not Detect) Exam - Constitutional Vitals: Temp Pulse Resp BP Pulse Ox 99.9 F H 97 24 107/55 95 04/18/18 08:00 04/18/18 08:00 04/18/18 08:00 04/18/18 08:00 04/18/18 08:00 General appearance: average body habitus, cooperative, no acute distress - Head Head exam: Present: atraumatic, normal inspection, normocephalic - Eye Eye exam: Present: EOMI, normal appearance, PERRL Pupils: Present: normal accommodation Additional comments: No subconjunctival hemorrhage noted. - ENT ENT exam: Present: mucous membranes moist - Neck Neck exam: Present: normal inspection - Respiratory Respiratory exam: Present: CTAB. Absent: rales, respiratory distress, rhonchi, wheezes - Cardiovascular Cardiovascular exam: Present: RRR, +S1, +S2 - GI/Abdominal GI/Abdominal exam: Present: normal bowel sounds, soft. Absent: distended, tenderness Additional comments: Donohue catheter noted to be draining clear yellow urine. - Extremities Exam Extremities exam: Present: joint swelling (Mild, bilateral knees), normal inspection, pedal edema (1+ BLE), tenderness (Bilateral knees) Additional comments: 2+ edema noted to the BUE. - Back Exam Additional comments: Deferred per patient request. - Neurological Exam Neurological exam: Present: alert, oriented X3, no focal deficits - Psychiatric Psychiatric exam: Present: normal affect, normal mood - Skin Skin exam: Present: dry, intact, normal color, warm Additional comments: No endocarditis stigmata noted. Consult Discharge Plan - Plan Referrals: Misael Lopez MD [Non-Partnered Physician] - (Patient is going to rehab no PCP appointment needed) Prescriptions: Apixaban [Eliquis] 5 mg PO BID 30 Days #60 tablet - Attending Attestation I examined this patient and my medical decision-making was reviewed with the Resident Physician. I agree with the documented findings, disposition and treatment plan as described except to the extent set forth below.
[2018-04-18 12:15] LABS: Iron < 10 mcg/dL (50-170); Transferrin 104 mg/dL (203-362)
[2018-04-18 12:31] LABS: Hematocrit 25.6 % (35.3-44.9); Hemoglobin 8.3 g/dL (11.5-15.4)
[2018-04-18 12:39] LABS: Folate > 22.3 ng/mL (3.0-16.0); Vitamin B12 > 1500 pg/mL (250-1100)
[2018-04-18] MEDS ORDERED: *HR* OxyCODONE Oral Soln 5 MG/5 ML UD.LIQ PO PRN ×2 (13:15)
[2018-04-18] MEDS ORDERED: Furosemide 40 MG/4 ML VIAL IVP SCH (17:00)
[2018-04-18] MEDS ORDERED: Bupivacaine/EPI 1:200k 0.5%PF 30 ML VIAL ONE (17:27)
[2018-04-18] MEDS ORDERED: *HR* FentaNYL (PF) 100 MCG/2 ML VIAL ONE ×2 (17:31→17:57)
[2018-04-18] MEDS ORDERED: Lidocaine -MPF 2% 2 ML VIAL ONE (17:31)
[2018-04-18] MEDS ORDERED: *HR* Propofol 200 MG/20 ML VIAL IVP ONE (17:31)
[2018-04-18] MEDS ORDERED: Ondansetron 4 MG/2 ML VIAL ONE (17:31)
[2018-04-18] MEDS ORDERED: Dexamethasone 4 MG/ML VIAL ONE (17:31)
[2018-04-18] MEDS ORDERED: Dextrose Gel 15 GM/37.5 ML TUBE PO PRN ×2 (18:20)
[2018-04-18] MEDS ORDERED: Temazepam 15 MG CAPSULE PO PRN (18:20)
[2018-04-18] MEDS ORDERED: Sennosides 8.6 MG TABLET PO PRN (18:20)
[2018-04-18] MEDS ORDERED: Ibuprofen 400 MG TABLET PO PRN (18:20)
[2018-04-18] MEDS ORDERED: Naloxone 0.4 MG/ML INJ IVP PRN (18:20)
[2018-04-18] MEDS ORDERED: MOM Conc 10 ML UD.LIQ PO PRN (18:20)
[2018-04-18] MEDS ORDERED: Ondansetron 4 MG/2 ML VIAL IVP PRN ×2 (18:20)
[2018-04-18] MEDS ORDERED: *HR* Dextrose 50 % in Water (Syg) 50 ML SYRINGE IVP PRN (18:20)
[2018-04-18] MEDS ORDERED: Acetaminophen 325 MG TABLET PO PRN (18:20)
[2018-04-18] MEDS ORDERED: D5% in Water 1,000 ML IVC PRN (18:20)
[2018-04-18] MEDS ORDERED: *HR* Promethazine 25 MG/ML VIAL IVP PRN (18:28)
[2018-04-18] MEDS ORDERED: *HR* HYDROmorphone (PF) 1 MG/ML SYRINGE IVP PRN (18:30)
[2018-04-18] MEDS: *HR* HYDROmorphone (PF) 1 MG/ML SYRINGE IVP PRN ×2 (18:37→18:45)
[2018-04-18] MEDS: DAPTOmycin 500 MG in 0.9 % Sodium Chloride 100 ML IVPB SCH (19:36)
--- NOTE | 2018-04-18 19:38 | Anesthesia Evaluation PreOp ---
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 Other Medical History: Renal, Diabetes Type II, Other (hyponatremia) Anesthesia History: No Prior Anesthetic Complications, Past Anesthesia Alcohol Use: none Drug use: none), Arrhythmia (AFib), Other (US ordered 04/14 revealed DVT in the left brachial and radial veins of the LUE) Pulmonary History: Asthma [employer]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 Other Medical History: Diabetes Type I, Other (RA, Hyponatremia) Anesthesia History: No Prior Anesthetic Complications, Past Anesthesia (Right knee scope) : No Alcohol Use: none Drug use: none Medications and Allergies Albuterol Sulfate [Ventolin Hfa] 2 puff IH Q4H PRN 04/06/18 [History] Budesonide/Formoterol 160/4.5 [Symbicort 160/4.5] 2 puff PO BID 04/06/18 [History] Esomeprazole Magnesium [Nexium] 40 mg PO DAILY 04/06/18 [History] Insulin ASPART [NovoLOG] 0 unit SQ AD 04/06/18 [History] Lisinopril/Hydrochlorothiazide [Zestoretic 20-25 mg Tablet] 1 tab PO DAILY 04/06/18 [History] Meloxicam 15 mg PO DAILY 04/06/18 [History] Methyl Salicylate/Menthol [Salonpas Patch] 1 patch TP DAILY PRN MDD N 04/06/18 [History] Montelukast [Singulair] 10 mg PO DAILY 04/06/18 [History] Multivitamin [One Daily Essential] 1 tab PO DAILY 04/06/18 [History] Tramadol HCl [Ultram] 50 mg PO DAILY 04/06/18 [History] predniSONE [PredniSONE] 60 mg PO DAILY 04/06/18 [History] Apixaban [Eliquis] 5 mg PO BID 30 Days #60 tablet 04/16/18 [Rx] Allergy/AdvReac Type Severity Reaction Status Date / Time No Known Allergies Allergy Verified 04/06/18 10:17 - Meds/Allergy Pre-op Review Medications Reviewed: Yes Allergies Reviewed: Yes Beta Blockers on Current Med List: Yes If Beta Blockers taken, Date/Time (Last Dose taken): 07:58 04/18/18 Anesthesia Results - Labs 04/18/18 11:37 04/18/18 04:10 Laboratory Tests 04/18/18 04/18/18 04:10 04:10 Plt Count 662 H Sodium 131 L Potassium 3.3 L Chloride 95 L Carbon Dioxide 27 BUN 14 Creatinine 0.44 L Echocardiogram Name: Marsha Mckeon Date of Study: 04/10/2018 EV/EV echocardiogram Impressions: LVEF 65-70%. Normal LV systolic and diastolic function. Grossly normal LV chamber size and wall thickness. Normal right ventricular structure and function. No significant valvular dysfunction. No pulmonary hypertension. - Imaging EKG: report reviewed (ATRIAL FIBRILLATION WITH RAPID VENTRICULAR RESPONSE WITH ABERRANT CONDUCTION OR VENTRICULAR PREMATURE COMPLEXES ABNORMAL RHYTHM ECG) Anesthesia Exam Vital Signs/O2 Sat, Most Current Temp Pulse Resp BP Pulse Ox 99.4 F 93 20 106/59 98 04/18/18 11:46 04/18/18 11:46 04/18/18 11:46 04/18/18 11:46 04/18/18 11:46 NPO (# of Hours): > 8 hrs Pain Scale: 0 Pain Scale Used: Numeric (1 - 10) - HEENT Pupil (Motor): Pupils equal, EOMI Mallampati: II Teeth: Edentulous Oral Opening: Greater than 3 - [employer] MACHINE OPERATOR LOC: Oriented [employer] MACHINE OPERATOR Motor: Normal RUE, Normal LUE, Normal RLE, Normal LLE, Normal Face [employer] MACHINE OPERATOR Sensory: Normal: RUE, LUE, RLE, LLE, Face - Cardiac Rhythm: Regular Murmur: None JVD: No Carotid Bruit: No - Pulmonary Breath Sounds: bilateral Clear Respiratory Effort: Symmetrical Anesthesia Assess/Plan ASA Score: 3 Modified Anamaria Scale for Level of Consciousness: Cooperative, oriented, and tranquil Anesthetic Plan: General Autologous Blood: Yes Monitoring Plan: Standard Monitors Recovery Plan: PACU
--- NOTE | 2018-04-18 19:39 | Oncology Inp Consult Note ---
Addendum entered and electronically signed by Louisa Estrada CNP 04/19/18 09:07: This addendum to is to act my signature for this document Addendum entered and electronically signed by Lynn Gunn MD 04/19/18 08:55: ROS patient is receiving Iv meds. Denies pain. Hgb is stable ~8-8.8 P/E Alert and oriented Not in ac pain/distress Chest Adiel air entry CVS S1S2 irreg Ext s/p surgery knees dressing Abd soft/NT. Skin bruises no ac bleeding Original Note: <Lynn Gunn - Last Filed: 04/18/18 19:41> - Data of Consult Requesting Physician: Joseph Arciniega MD Primary Care Provider: PCP NONE - Consult Narrative Reason for consult: anemia History of present illness: Ms. Mckeon is a 77 year old female with hx of hypertension, diabetes, osteoarthritis, hospitalized with knee pain and shoulder discomfort, developed sepsis, septic arthritis at procedure. She had upper ext/lower ext doppler studies that showed chronic left basilic vein thrombosis. She also developed A fib with RVR requiring heparin drip. Hematology consulted for anemia. Hgb has been 11 down to 7 due to the above and had been transfused 2 PRBCs per blood bank. Her recent Hgb us around 8gm. Anemia is likely multifactorial and due to infection. Obtain serum ferritin, saturation levels, r/o disseminated process due to sepsis. Review smear. A. fib with RVR hx, cr DVT, heparin may be continued when clear by surgery, closely monitoring Hgb.Hct, If Hgb drops transfuse and hold heparin to r/o active bleeding. PAtient was not in the room to discuss plan, will be evaluated in AM> Medications and Allergies Albuterol Sulfate [Ventolin Hfa] 2 puff IH Q4H PRN 04/06/18 [History] Budesonide/Formoterol 160/4.5 [Symbicort 160/4.5] 2 puff PO BID 04/06/18 [History] Esomeprazole Magnesium [Nexium] 40 mg PO DAILY 04/06/18 [History] Insulin ASPART [NovoLOG] 0 unit SQ AD 04/06/18 [History] Lisinopril/Hydrochlorothiazide [Zestoretic 20-25 mg Tablet] 1 tab PO DAILY 04/06/18 [History] Meloxicam 15 mg PO DAILY 04/06/18 [History] Methyl Salicylate/Menthol [Salonpas Patch] 1 patch TP DAILY PRN MDD N 04/06/18 [History] Montelukast [Singulair] 10 mg PO DAILY 04/06/18 [History] Multivitamin [One Daily Essential] 1 tab PO DAILY 04/06/18 [History] Tramadol HCl [Ultram] 50 mg PO DAILY 04/06/18 [History] predniSONE [PredniSONE] 60 mg PO DAILY 04/06/18 [History] Apixaban [Eliquis] 5 mg PO BID 30 Days #60 tablet 04/16/18 [Rx] Allergy/AdvReac Type Severity Reaction Status Date / Time No Known Allergies Allergy Verified 04/06/18 10:17 Review of systems: not done patient at procedure Oncology - Exam - Constitutional Vitals: Temp Pulse Resp BP Pulse Ox 99.5 F 100 18 130/67 98 04/18/18 19:08 04/18/18 19:08 04/18/18 19:08 04/18/18 19:08 04/18/18 19:08 Exam: not completed as patient at procedure. Oncology - Results Labs: 04/18/18 04/18/18 04/18/18 11:39 11:39 11:39 WBC RBC Hgb Hct MCV MCH MCHC RDW Plt Count MPV Immature Gran % Seg Neutrophils % Band Neutrophils % Lymphocytes % Monocytes % Eosinophils % Basophils % Neutrophils # Lymphocytes # Monocytes # Eosinophils # Basophils # Toxic Granulation Platelet Estimate Large Platelets Anisocytosis ESR PT INR Heparin Anti-Xa, Unfract Sodium Potassium Chloride Carbon Dioxide BUN Creatinine Est GFR ( Amer) Est GFR (Non-Af Amer) BUN/Creatinine Ratio Glucose POC Glucose Calculated Osmolality Calcium Venous Ioniz Calcium Phosphorus Magnesium Iron < 10 L % Saturation TNP Transferrin 104 L Total Bilirubin AST ALT Alkaline Phosphatase Creatine Kinase C-Reactive Protein B-Natriuretic Peptide Serum Total Protein Albumin Globulin Albumin/Globulin Ratio Vitamin B12 > 1500 H Folate > 22.3 H Random Cortisol Synovial Source Synovial Color Synovial Appearance Synovial Volume Synovial RBC Synovial Tot Nuc Cell Synovial Band Neuts Synovial Basophils Synovial Eosinophils Synovial Seg Neuts % Synovial Lymphocytes % Synovial Monocytes % Synovial Other Cells % Synovial Crystals Vancomycin Trough 18 H A. baumannii (PCR) Chlamy pneumoniae PCR Adenovirus (PCR) B. pertussis DNA (PCR) B.parapertussis DNA PCR Kirti albicans (PCR) C. glabrata (PCR) C. krusei (PCR) C. parapsilosis (PCR) C. tropicalis (PCR) Coronavirus OC43 (PCR) Coronavirus HKU1 (PCR) Coronavirus 229E (PCR) Coronavirus NL63 (PCR) Enterobacteriac sp PCR E. cloacae complex PCR Enterococcus sp PCR E. coli (PCR) H. influenzae (PCR) Herpes Simplex Source HSV I HSV II Human Metapneumovir PCR Influenza A (H1) PCR Influ A (H1N1/09) PCR Influenza A (H3) PCR Influenza A Untype (PCR) Influenza Type B (PCR) Klebsiella oxytoca PCR Klebsiella pneumoniae List. monocytogenes PCR M.pneumoniae DNA (PCR) N. meningitidis (PCR) Parainfluenza 1 (PCR) Parainfluenza 2 (PCR) Parainfluenza 3 (PCR) Parainfluenza 4 (PCR) Proteus species (PCR) RSV (PCR) Entero/Rhino (PCR) Serratia marcescens PCR Staphylococcus sp PCR Staph aureus (PCR) mecA-Methicil Res Gene Streptococcus sp PCR Group A Strep DNA Group B Strep (PCR) Strep pneumoniae (PCR) P. aeruginosa (PCR) Ivory/B-Vanco Res Genes KPC (blaKPC) Detect PCR Specimen Rejected Blood Type Antibody Screen Crossmatch 04/18/18 04/18/18 04/18/18 11:39 11:37 11:36 WBC RBC Hgb 8.3 L Hct 25.6 L MCV MCH MCHC RDW Plt Count MPV Immature Gran % Seg Neutrophils % Band Neutrophils % Lymphocytes % Monocytes % Eosinophils % Basophils % Neutrophils # Lymphocytes # Monocytes # Eosinophils # Basophils # Toxic Granulation Platelet Estimate Large Platelets Anisocytosis ESR PT INR Heparin Anti-Xa, Unfract 0.67 Sodium Potassium Chloride Carbon Dioxide BUN Creatinine Est GFR ( Amer) Est GFR (Non-Af Amer) BUN/Creatinine Ratio Glucose POC Glucose 78 Calculated Osmolality Calcium Venous Ioniz Calcium Phosphorus Magnesium Iron % Saturation Transferrin Total Bilirubin AST ALT Alkaline Phosphatase Creatine Kinase C-Reactive Protein B-Natriuretic Peptide Serum Total Protein Albumin Globulin Albumin/Globulin Ratio Vitamin B12 Folate Random Cortisol Synovial Source Synovial Color Synovial Appearance Synovial Volume Synovial RBC Synovial Tot Nuc Cell Synovial Band Neuts Synovial Basophils Synovial Eosinophils Synovial Seg Neuts % Synovial Lymphocytes % Synovial Monocytes % Synovial Other Cells % Synovial Crystals Vancomycin Trough A. baumannii (PCR) Chlamy pneumoniae PCR Adenovirus (PCR) B. pertussis DNA (PCR) B.parapertussis DNA PCR Kirti albicans (PCR) C. glabrata (PCR) C. krusei (PCR) C. parapsilosis (PCR) C. tropicalis (PCR) Coronavirus OC43 (PCR) Coronavirus HKU1 (PCR) Coronavirus 229E (PCR) Coronavirus NL63 (PCR) Enterobacteriac sp PCR E. cloacae complex PCR Enterococcus sp PCR E. coli (PCR) H. influenzae (PCR) Herpes Simplex Source HSV I HSV II Human Metapneumovir PCR Influenza A (H1) PCR Influ A (H1N1/09) PCR Influenza A (H3) PCR Influenza A Untype (PCR) Influenza Type B (PCR) Klebsiella oxytoca PCR Klebsiella pneumoniae List. monocytogenes PCR M.pneumoniae DNA (PCR) N. meningitidis (PCR) Parainfluenza 1 (PCR) Parainfluenza 2 (PCR) Parainfluenza 3 (PCR) Parainfluenza 4 (PCR) Proteus species (PCR) RSV (PCR) Entero/Rhino (PCR) Serratia marcescens PCR Staphylococcus sp PCR Staph aureus (PCR) mecA-Methicil Res Gene Streptococcus sp PCR Group A Strep DNA Group B Strep (PCR) Strep pneumoniae (PCR) P. aeruginosa (PCR) Ivory/B-Vanco Res Genes KPC (blaKPC) Detect PCR Specimen Rejected Blood Type Antibody Screen Crossmatch 04/18/18 04/18/18 04/18/18 08:26 07:53 07:50 WBC RBC Hgb Hct MCV MCH MCHC RDW Plt Count MPV Immature Gran % Seg Neutrophils % Band Neutrophils % Lymphocytes % Monocytes % Eosinophils % Basophils % Neutrophils # Lymphocytes # Monocytes # Eosinophils # Basophils # Toxic Granulation Platelet Estimate Large Platelets Anisocytosis ESR PT INR Heparin Anti-Xa, Unfract Sodium Potassium Chloride Carbon Dioxide BUN Creatinine Est GFR ( Amer) Est GFR (Non-Af Amer) BUN/Creatinine Ratio Glucose POC Glucose 96 56 L 58 L Calculated Osmolality Calcium Venous Ioniz Calcium Phosphorus Magnesium Iron % Saturation Transferrin Total Bilirubin AST ALT Alkaline Phosphatase Creatine Kinase C-Reactive Protein B-Natriuretic Peptide Serum Total Protein Albumin Globulin Albumin/Globulin Ratio Vitamin B12 Folate Random Cortisol Synovial Source Synovial Color Synovial Appearance Synovial Volume Synovial RBC Synovial Tot Nuc Cell Synovial Band Neuts Synovial Basophils Synovial Eosinophils Synovial Seg Neuts % Synovial Lymphocytes % Synovial Monocytes % Synovial Other Cells % Synovial Crystals Vancomycin Trough A. baumannii (PCR) Chlamy pneumoniae PCR Adenovirus (PCR) B. pertussis DNA (PCR) B.parapertussis DNA PCR Kirti albicans (PCR) C. glabrata (PCR) C. krusei (PCR) C. parapsilosis (PCR) C. tropicalis (PCR) Coronavirus OC43 (PCR) Coronavirus HKU1 (PCR) Coronavirus 229E (PCR) Coronavirus NL63 (PCR) Enterobacteriac sp PCR E. cloacae complex PCR Enterococcus sp PCR E. coli (PCR) H. influenzae (PCR) Herpes Simplex Source HSV I HSV II Human Metapneumovir PCR Influenza A (H1) PCR Influ A (H1N1/09) PCR Influenza A (H3) PCR Influenza A Untype (PCR) Influenza Type B (PCR) Klebsiella oxytoca PCR Klebsiella pneumoniae List. monocytogenes PCR M.pneumoniae DNA (PCR) N. meningitidis (PCR) Parainfluenza 1 (PCR) Parainfluenza 2 (PCR) Parainfluenza 3 (PCR) Parainfluenza 4 (PCR) Proteus species (PCR) RSV (PCR) Entero/Rhino (PCR) Serratia marcescens PCR Staphylococcus sp PCR Staph aureus (PCR) mecA-Methicil Res Gene Streptococcus sp PCR Group A Strep DNA Group B Strep (PCR) Strep pneumoniae (PCR) P. aeruginosa (PCR) Ivory/B-Vanco Res Genes KPC (blaKPC) Detect PCR Specimen Rejected Blood Type Antibody Screen Crossmatch 04/18/18 04/18/18 04/18/18 04:10 04:10 04:10 WBC 11.5 H RBC 2.74 L Hgb 8.0 L Hct 24.4 L MCV 89.1 MCH 29.2 MCHC 32.8 RDW 14.7 H Plt Count 662 H MPV 10.0 Immature Gran % 1.1 Seg Neutrophils % 82.7 Band Neutrophils % Lymphocytes % 10.1 Monocytes % 4.9 Eosinophils % 0.9 Basophils % 0.3 Neutrophils # 9.5 H Lymphocytes # 1.2 Monocytes # 0.6 Eosinophils # 0.1 Basophils # 0.0 Toxic Granulation Platelet Estimate Large Platelets Anisocytosis ESR PT INR Heparin Anti-Xa, Unfract Sodium 131 L Potassium 3.3 L Chloride 95 L Carbon Dioxide 27 BUN 14 Creatinine 0.44 L Est GFR ( Amer) > 60 Est GFR (Non-Af Amer) > 60 BUN/Creatinine Ratio 32 H Glucose 95 POC Glucose Calculated Osmolality 272 L Calcium 7.5 L Venous Ioniz Calcium Phosphorus Magnesium Iron % Saturation Transferrin Total Bilirubin 0.7 AST 16 ALT 10 Alkaline Phosphatase 200 H Creatine Kinase C-Reactive Protein B-Natriuretic Peptide Serum Total Protein 5.0 L Albumin 1.7 L Globulin 3.3 Albumin/Globulin Ratio 0.5 L Vitamin B12 Folate Random Cortisol Synovial Source Synovial Color Synovial Appearance Synovial Volume Synovial RBC Synovial Tot Nuc Cell Synovial Band Neuts Synovial Basophils Synovial Eosinophils Synovial Seg Neuts % Synovial Lymphocytes % Synovial Monocytes % Synovial Other Cells % Synovial Crystals Vancomycin Trough TNP A. baumannii (PCR) Chlamy pneumoniae PCR Adenovirus (PCR) B. pertussis DNA (PCR) B.parapertussis DNA PCR Kirti albicans (PCR) C. glabrata (PCR) C. krusei (PCR) C. parapsilosis (PCR) C. tropicalis (PCR) Coronavirus OC43 (PCR) Coronavirus HKU1 (PCR) Coronavirus 229E (PCR) Coronavirus NL63 (PCR) Enterobacteriac sp PCR E. cloacae complex PCR Enterococcus sp PCR E. coli (PCR) H. influenzae (PCR) Herpes Simplex Source HSV I HSV II Human Metapneumovir PCR Influenza A (H1) PCR Influ A (H1N1/09) PCR Influenza A (H3) PCR Influenza A Untype (PCR) Influenza Type B (PCR) Klebsiella oxytoca PCR Klebsiella pneumoniae List. monocytogenes PCR M.pneumoniae DNA (PCR) N. meningitidis (PCR) Parainfluenza 1 (PCR) Parainfluenza 2 (PCR) Parainfluenza 3 (PCR) Parainfluenza 4 (PCR) Proteus species (PCR) RSV (PCR) Entero/Rhino (PCR) Serratia marcescens PCR Staphylococcus sp PCR Staph aureus (PCR) mecA-Methicil Res Gene Streptococcus sp PCR Group A Strep DNA Group B Strep (PCR) Strep pneumoniae (PCR) P. aeruginosa (PCR) Ivory/B-Vanco Res Genes KPC (blaKPC) Detect PCR Specimen Rejected Blood Type Antibody Screen Crossmatch 04/17/18 04/17/18 04/17/18 20:17 19:23 18:35 WBC RBC Hgb Hct MCV MCH MCHC RDW Plt Count MPV Immature Gran % Seg Neutrophils % Band Neutrophils % Lymphocytes % Monocytes % Eosinophils % Basophils % Neutrophils # Lymphocytes # Monocytes # Eosinophils # Basophils # Toxic Granulation Platelet Estimate Large Platelets Anisocytosis ESR PT 14.8 H INR 1.3 Heparin Anti-Xa, Unfract Sodium Potassium Chloride Carbon Dioxide BUN Creatinine Est GFR ( Amer) Est GFR (Non-Af Amer) BUN/Creatinine Ratio Glucose POC Glucose 160 H Calculated Osmolality Calcium Venous Ioniz Calcium Phosphorus Magnesium Iron % Saturation Transferrin Total Bilirubin AST ALT Alkaline Phosphatase Creatine Kinase C-Reactive Protein B-Natriuretic Peptide Serum Total Protein Albumin Globulin Albumin/Globulin Ratio Vitamin B12 Folate Random Cortisol Synovial Source left knee Synovial Color Julianne Synovial Appearance Hazy Synovial Volume Test Not Performed Synovial RBC 0.250 H Synovial Tot Nuc Cell 4770 H Synovial Band Neuts Test Not Performed Synovial Basophils Test Not Performed Synovial Eosinophils Test Not Performed Synovial Seg Neuts % 76.0 Synovial Lymphocytes % 22.0 Synovial Monocytes % Test Not Performed Synovial Other Cells % 2.0 Synovial Crystals No Crystals Seen Vancomycin Trough A. baumannii (PCR) Chlamy pneumoniae PCR Adenovirus (PCR) B. pertussis DNA (PCR) B.parapertussis DNA PCR Kirti albicans (PCR) C. glabrata (PCR) C. krusei (PCR) C. parapsilosis (PCR) C. tropicalis (PCR) Coronavirus OC43 (PCR) Coronavirus HKU1 (PCR) Coronavirus 229E (PCR) Coronavirus NL63 (PCR) Enterobacteriac sp PCR E. cloacae complex PCR Enterococcus sp PCR E. coli (PCR) H. influenzae (PCR) Herpes Simplex Source HSV I HSV II Human Metapneumovir PCR Influenza A (H1) PCR Influ A (H1N1/09) PCR Influenza A (H3) PCR Influenza A Untype (PCR) Influenza Type B (PCR) Klebsiella oxytoca PCR Klebsiella pneumoniae List. monocytogenes PCR M.pneumoniae DNA (PCR) N. meningitidis (PCR) Parainfluenza 1 (PCR) Parainfluenza 2 (PCR) Parainfluenza 3 (PCR) Parainfluenza 4 (PCR) Proteus species (PCR) RSV (PCR) Entero/Rhino (PCR) Serratia marcescens PCR Staphylococcus sp PCR Staph aureus (PCR) mecA-Methicil Res Gene Streptococcus sp PCR Group A Strep DNA Group B Strep (PCR) Strep pneumoniae (PCR) P. aeruginosa (PCR) Ivory/B-Vanco Res Genes KPC (blaKPC) Detect PCR Specimen Rejected Blood Type Antibody Screen Crossmatch 04/17/18 04/17/18 04/17/18 16:55 16:50 15:16 WBC RBC Hgb 9.3 L Hct 28.2 L MCV MCH MCHC RDW Plt Count MPV Immature Gran % Seg Neutrophils % Band Neutrophils % Lymphocytes % Monocytes % Eosinophils % Basophils % Neutrophils # Lymphocytes # Monocytes # Eosinophils # Basophils # Toxic Granulation Platelet Estimate Large Platelets Anisocytosis ESR PT INR Heparin Anti-Xa, Unfract Sodium Potassium Chloride Carbon Dioxide BUN Creatinine Est GFR ( Amer) Est GFR (Non-Af Amer) BUN/Creatinine Ratio Glucose POC Glucose 197 H Calculated Osmolality Calcium Venous Ioniz Calcium Phosphorus Magnesium Iron % Saturation Transferrin Total Bilirubin AST ALT Alkaline Phosphatase Creatine Kinase 11 L C-Reactive Protein B-Natriuretic Peptide Serum Total Protein Albumin Globulin Albumin/Globulin Ratio Vitamin B12 Folate Random Cortisol Synovial Source Synovial Color Synovial Appearance Synovial Volume Synovial RBC Synovial Tot Nuc Cell Synovial Band Neuts Synovial Basophils Synovial Eosinophils Synovial Seg Neuts % Synovial Lymphocytes % Synovial Monocytes % Synovial Other Cells % Synovial Crystals Vancomycin Trough A. baumannii (PCR) Chlamy pneumoniae PCR Adenovirus (PCR) B. pertussis DNA (PCR) B.parapertussis DNA PCR Kirti albicans (PCR) C. glabrata (PCR) C. krusei (PCR) C. parapsilosis (PCR) C. tropicalis (PCR) Coronavirus OC43 (PCR) Coronavirus HKU1 (PCR) Coronavirus 229E (PCR) Coronavirus NL63 (PCR) Enterobacteriac sp PCR E. cloacae complex PCR Enterococcus sp PCR E. coli (PCR) H. influenzae (PCR) Herpes Simplex Source HSV I HSV II Human Metapneumovir PCR Influenza A (H1) PCR Influ A (H1N1/09) PCR Influenza A (H3) PCR Influenza A Untype (PCR) Influenza Type B (PCR) Klebsiella oxytoca PCR Klebsiella pneumoniae List. monocytogenes PCR M.pneumoniae DNA (PCR) N. meningitidis (PCR) Parainfluenza 1 (PCR) Parainfluenza 2 (PCR) Parainfluenza 3 (PCR) Parainfluenza 4 (PCR) Proteus species (PCR) RSV (PCR) Entero/Rhino (PCR) Serratia marcescens PCR Staphylococcus sp PCR Staph aureus (PCR) mecA-Methicil Res Gene Streptococcus sp PCR Group A Strep DNA Group B Strep (PCR) Strep pneumoniae (PCR) P. aeruginosa (PCR) Ivory/B-Vanco Res Genes KPC (blaKPC) Detect PCR Specimen Rejected Blood Type Antibody Screen Crossmatch 04/17/18 04/17/18 04/17/18 11:05 10:30 09:04 WBC RBC Hgb Hct MCV MCH MCHC RDW Plt Count MPV Immature Gran % Seg Neutrophils % Band Neutrophils % Lymphocytes % Monocytes % Eosinophils % Basophils % Neutrophils # Lymphocytes # Monocytes # Eosinophils # Basophils # Toxic Granulation Platelet Estimate Large Platelets Anisocytosis ESR PT INR Heparin Anti-Xa, Unfract 0.53 Sodium Potassium Chloride Carbon Dioxide BUN Creatinine Est GFR ( Amer) Est GFR (Non-Af Amer) BUN/Creatinine Ratio Glucose POC Glucose 202 H Calculated Osmolality Calcium Venous Ioniz Calcium Phosphorus Magnesium Iron % Saturation Transferrin Total Bilirubin AST ALT Alkaline Phosphatase Creatine Kinase C-Reactive Protein B-Natriuretic Peptide Serum Total Protein Albumin Globulin Albumin/Globulin Ratio Vitamin B12 Folate Random Cortisol 16.4 Synovial Source Synovial Color Synovial Appearance Synovial Volume Synovial RBC Synovial Tot Nuc Cell Synovial Band Neuts Synovial Basophils Synovial Eosinophils Synovial Seg Neuts % Synovial Lymphocytes % Synovial Monocytes % Synovial Other Cells % Synovial Crystals Vancomycin Trough A. baumannii (PCR) Chlamy pneumoniae PCR Adenovirus (PCR) B. pertussis DNA (PCR) B.parapertussis DNA PCR Kirti albicans (PCR) C. glabrata (PCR) C. krusei (PCR) C. parapsilosis (PCR) C. tropicalis (PCR) Coronavirus OC43 (PCR) Coronavirus HKU1 (PCR) Coronavirus 229E (PCR) Coronavirus NL63 (PCR) Enterobacteriac sp PCR E. cloacae complex PCR Enterococcus sp PCR E. coli (PCR) H. influenzae (PCR) Herpes Simplex Source HSV I HSV II Human Metapneumovir PCR Influenza A (H1) PCR Influ A (H1N1/09) PCR Influenza A (H3) PCR Influenza A Untype (PCR) Influenza Type B (PCR) Klebsiella oxytoca PCR Klebsiella pneumoniae List. monocytogenes PCR M.pneumoniae DNA (PCR) N. meningitidis (PCR) Parainfluenza 1 (PCR) Parainfluenza 2 (PCR) Parainfluenza 3 (PCR) Parainfluenza 4 (PCR) Proteus species (PCR) RSV (PCR) Entero/Rhino (PCR) Serratia marcescens PCR Staphylococcus sp PCR Staph aureus (PCR) mecA-Methicil Res Gene Streptococcus sp PCR Group A Strep DNA Group B Strep (PCR) Strep pneumoniae (PCR) P. aeruginosa (PCR) Ivory/B-Vanco Res Genes KPC (blaKPC) Detect PCR Specimen Rejected Blood Type Antibody Screen Crossmatch 04/17/18 04/17/18 04/17/18 09:00 09:00 07:44 WBC RBC Hgb Hct MCV MCH MCHC RDW Plt Count MPV Immature Gran % Seg Neutrophils % Band Neutrophils % Lymphocytes % Monocytes % Eosinophils % Basophils % Neutrophils # Lymphocytes # Monocytes # Eosinophils # Basophils # Toxic Granulation Platelet Estimate Large Platelets Anisocytosis ESR 111 H PT INR Heparin Anti-Xa, Unfract Sodium Potassium Chloride Carbon Dioxide BUN Creatinine Est GFR ( Amer) Est GFR (Non-Af Amer) BUN/Creatinine Ratio Glucose POC Glucose 113 H Calculated Osmolality Calcium Venous Ioniz Calcium Phosphorus Magnesium Iron % Saturation Transferrin Total Bilirubin AST ALT Alkaline Phosphatase Creatine Kinase C-Reactive Protein 166 H B-Natriuretic Peptide Serum Total Protein Albumin Globulin Albumin/Globulin Ratio Vitamin B12 Folate Random Cortisol Synovial Source Synovial Color Synovial Appearance Synovial Volume Synovial RBC Synovial Tot Nuc Cell Synovial Band Neuts Synovial Basophils Synovial Eosinophils Synovial Seg Neuts % Synovial Lymphocytes % Synovial Monocytes % Synovial Other Cells % Synovial Crystals Vancomycin Trough A. baumannii (PCR) Chlamy pneumoniae PCR Adenovirus (PCR) B. pertussis DNA (PCR) B.parapertussis DNA PCR Kirti albicans (PCR) C. glabrata (PCR) C. krusei (PCR) C. parapsilosis (PCR) C. tropicalis (PCR) Coronavirus OC43 (PCR) Coronavirus HKU1 (PCR) Coronavirus 229E (PCR) Coronavirus NL63 (PCR) Enterobacteriac sp PCR E. cloacae complex PCR Enterococcus sp PCR E. coli (PCR) H. influenzae (PCR) Herpes Simplex Source HSV I HSV II Human Metapneumovir PCR Influenza A (H1) PCR Influ A (H1N1/) PCR Influenza A (H3) PCR Influenza A Untype (PCR) Influenza Type B (PCR) Klebsiella oxytoca PCR Klebsiella pneumoniae List. monocytogenes PCR M.pneumoniae DNA (PCR) N. meningitidis (PCR) Parainfluenza 1 (PCR) Parainfluenza 2 (PCR) Parainfluenza 3 (PCR) Parainfluenza 4 (PCR) Proteus species (PCR) RSV (PCR) Entero/Rhino (PCR) Serratia marcescens PCR Staphylococcus sp PCR Staph aureus (PCR) mecA-Methicil Res Gene Streptococcus sp PCR Group A Strep DNA Group B Strep (PCR) Strep pneumoniae (PCR) P. aeruginosa (PCR) Ivory/B-Vanco Res Genes KPC (blaKPC) Detect PCR Specimen Rejected Blood Type Antibody Screen Crossmatch 04/17/18 04/17/18 04/17/18 07:03 03:45 03:45 WBC 12.0 H RBC 2.86 L Hgb 8.3 L Hct 25.0 L MCV 87.4 MCH 29.0 MCHC 33.2 RDW 14.6 H Plt Count 560 H MPV 10.3 Immature Gran % 1.5 Seg Neutrophils % 83.5 Band Neutrophils % Lymphocytes % 9.5 Monocytes % 4.8 Eosinophils % 0.6 Basophils % 0.1 Neutrophils # 10.1 H Lymphocytes # 1.1 Monocytes # 0.6 Eosinophils # 0.1 Basophils # 0.0 Toxic Granulation Platelet Estimate Large Platelets Anisocytosis ESR PT INR Heparin Anti-Xa, Unfract Sodium 130 L Potassium 3.2 L Chloride 96 L Carbon Dioxide 27 BUN 16 Creatinine 0.48 L Est GFR ( Amer) > 60 Est GFR (Non-Af Amer) > 60 BUN/Creatinine Ratio 33 H Glucose 186 H POC Glucose Calculated Osmolality 276 L Calcium 7.7 L Venous Ioniz Calcium 1.14 L Phosphorus 3.3 Magnesium 1.6 Iron % Saturation Transferrin Total Bilirubin AST ALT Alkaline Phosphatase Creatine Kinase C-Reactive Protein B-Natriuretic Peptide Serum Total Protein Albumin Globulin Albumin/Globulin Ratio Vitamin B12 Folate Random Cortisol Synovial Source Synovial Color Synovial Appearance Synovial Volume Synovial RBC Synovial Tot Nuc Cell Synovial Band Neuts Synovial Basophils Synovial Eosinophils Synovial Seg Neuts % Synovial Lymphocytes % Synovial Monocytes % Synovial Other Cells % Synovial Crystals Vancomycin Trough A. baumannii (PCR) Chlamy pneumoniae PCR Adenovirus (PCR) B. pertussis DNA (PCR) B.parapertussis DNA PCR Kirti albicans (PCR) C. glabrata (PCR) C. krusei (PCR) C. parapsilosis (PCR) C. tropicalis (PCR) Coronavirus OC43 (PCR) Coronavirus HKU1 (PCR) Coronavirus 229E (PCR) Coronavirus NL63 (PCR) Enterobacteriac sp PCR E. cloacae complex PCR Enterococcus sp PCR E. coli (PCR) H. influenzae (PCR) Herpes Simplex Source HSV I HSV II Human Metapneumovir PCR Influenza A (H1) PCR Influ A (H1N1/09) PCR Influenza A (H3) PCR Influenza A Untype (PCR) Influenza Type B (PCR) Klebsiella oxytoca PCR Klebsiella pneumoniae List. monocytogenes PCR M.pneumoniae DNA (PCR) N. meningitidis (PCR) Parainfluenza 1 (PCR) Parainfluenza 2 (PCR) Parainfluenza 3 (PCR) Parainfluenza 4 (PCR) Proteus species (PCR) RSV (PCR) Entero/Rhino (PCR) Serratia marcescens PCR Staphylococcus sp PCR Staph aureus (PCR) mecA-Methicil Res Gene Streptococcus sp PCR Group A Strep DNA Group B Strep (PCR) Strep pneumoniae (PCR) P. aeruginosa (PCR) Ivory/B-Vanco Res Genes KPC (blaKPC) Detect PCR Specimen Rejected Blood Type Antibody Screen Crossmatch 04/16/18 04/16/18 04/16/18 23:05 19:33 16:33 WBC RBC Hgb Hct MCV MCH MCHC RDW Plt Count MPV Immature Gran % Seg Neutrophils % Band Neutrophils % Lymphocytes % Monocytes % Eosinophils % Basophils % Neutrophils # Lymphocytes # Monocytes # Eosinophils # Basophils # Toxic Granulation Platelet Estimate Large Platelets Anisocytosis ESR PT INR Heparin Anti-Xa, Unfract Sodium Potassium Chloride Carbon Dioxide BUN Creatinine Est GFR ( Amer) Est GFR (Non-Af Amer) BUN/Creatinine Ratio Glucose POC Glucose 242 H 222 H Calculated Osmolality Calcium Venous Ioniz Calcium Phosphorus Magnesium Iron % Saturation Transferrin Total Bilirubin AST ALT Alkaline Phosphatase Creatine Kinase C-Reactive Protein B-Natriuretic Peptide Serum Total Protein Albumin Globulin Albumin/Globulin Ratio Vitamin B12 Folate Random Cortisol Synovial Source Synovial Color Synovial Appearance Synovial Volume Synovial RBC Synovial Tot Nuc Cell Synovial Band Neuts Synovial Basophils Synovial Eosinophils Synovial Seg Neuts % Synovial Lymphocytes % Synovial Monocytes % Synovial Other Cells % Synovial Crystals Vancomycin Trough 11 H A. baumannii (PCR) Chlamy pneumoniae PCR Adenovirus (PCR) B. pertussis DNA (PCR) B.parapertussis DNA PCR Kirti albicans (PCR) C. glabrata (PCR) C. krusei (PCR) C. parapsilosis (PCR) C. tropicalis (PCR) Coronavirus OC43 (PCR) Coronavirus HKU1 (PCR) Coronavirus 229E (PCR) Coronavirus NL63 (PCR) Enterobacteriac sp PCR E. cloacae complex PCR Enterococcus sp PCR E. coli (PCR) H. influenzae (PCR) Herpes Simplex Source HSV I HSV II Human Metapneumovir PCR Influenza A (H1) PCR Influ A (H1N1/09) PCR Influenza A (H3) PCR Influenza A Untype (PCR) Influenza Type B (PCR) Klebsiella oxytoca PCR Klebsiella pneumoniae List. monocytogenes PCR M.pneumoniae DNA (PCR) N. meningitidis (PCR) Parainfluenza 1 (PCR) Parainfluenza 2 (PCR) Parainfluenza 3 (PCR) Parainfluenza 4 (PCR) Proteus species (PCR) RSV (PCR) Entero/Rhino (PCR) Serratia marcescens PCR Staphylococcus sp PCR Staph aureus (PCR) mecA-Methicil Res Gene Streptococcus sp PCR Group A Strep DNA Group B Strep (PCR) Strep pneumoniae (PCR) P. aeruginosa (PCR) Ivory/B-Vanco Res Genes KPC (blaKPC) Detect PCR Specimen Rejected Blood Type Antibody Screen Crossmatch 04/16/18 04/16/18 04/16/18 11:48 10:40 10:40 WBC RBC Hgb Hct MCV MCH MCHC RDW Plt Count MPV Immature Gran % Seg Neutrophils % Band Neutrophils % Lymphocytes % Monocytes % Eosinophils % Basophils % Neutrophils # Lymphocytes # Monocytes # Eosinophils # Basophils # Toxic Granulation Platelet Estimate Large Platelets Anisocytosis ESR PT INR Heparin Anti-Xa, Unfract 0.41 Sodium Potassium Chloride Carbon Dioxide BUN Creatinine Est GFR ( Amer) Est GFR (Non-Af Amer) BUN/Creatinine Ratio Glucose POC Glucose 159 H Calculated Osmolality Calcium Venous Ioniz Calcium Phosphorus Magnesium Iron % Saturation Transferrin Total Bilirubin AST ALT Alkaline Phosphatase Creatine Kinase C-Reactive Protein B-Natriuretic Peptide Serum Total Protein Albumin Globulin Albumin/Globulin Ratio Vitamin B12 Folate Random Cortisol Synovial Source Synovial Color Synovial Appearance Synovial Volume Synovial RBC Synovial Tot Nuc Cell Synovial Band Neuts Synovial Basophils Synovial Eosinophils Synovial Seg Neuts % Synovial Lymphocytes % Synovial Monocytes % Synovial Other Cells % Synovial Crystals Vancomycin Trough A. baumannii (PCR) Chlamy pneumoniae PCR Adenovirus (PCR) B. pertussis DNA (PCR) B.parapertussis DNA PCR Kirti albicans (PCR) C. glabrata (PCR) C. krusei (PCR) C. parapsilosis (PCR) C. tropicalis (PCR) Coronavirus OC43 (PCR) Coronavirus HKU1 (PCR) Coronavirus 229E (PCR) Coronavirus NL63 (PCR) Enterobacteriac sp PCR E. cloacae complex PCR Enterococcus sp PCR E. coli (PCR) H. influenzae (PCR) Herpes Simplex Source [place] HSV I DETECTED A HSV II Not Detected Human Metapneumovir PCR Influenza A (H1) PCR Influ A (H1N1/09) PCR Influenza A (H3) PCR Influenza A Untype (PCR) Influenza Type B (PCR) Klebsiella oxytoca PCR Klebsiella pneumoniae List. monocytogenes PCR M.pneumoniae DNA (PCR) N. meningitidis (PCR) Parainfluenza 1 (PCR) Parainfluenza 2 (PCR) Parainfluenza 3 (PCR) Parainfluenza 4 (PCR) Proteus species (PCR) RSV (PCR) Entero/Rhino (PCR) Serratia marcescens PCR Staphylococcus sp PCR Staph aureus (PCR) mecA-Methicil Res Gene Streptococcus sp PCR Group A Strep DNA Group B Strep (PCR) Strep pneumoniae (PCR) P. aeruginosa (PCR) Ivory/B-Vanco Res Genes KPC (blaKPC) Detect PCR Specimen Rejected Blood Type Antibody Screen Crossmatch 04/16/18 04/16/18 04/16/18 07:45 01:28 01:28 WBC RBC Hgb Hct MCV MCH MCHC RDW Plt Count MPV Immature Gran % Seg Neutrophils % Band Neutrophils % Lymphocytes % Monocytes % Eosinophils % Basophils % Neutrophils # Lymphocytes # Monocytes # Eosinophils # Basophils # Toxic Granulation Platelet Estimate Large Platelets Anisocytosis ESR PT INR Heparin Anti-Xa, Unfract 0.59 Sodium Potassium Chloride Carbon Dioxide BUN Creatinine Est GFR ( Amer) Est GFR (Non-Af Amer) BUN/Creatinine Ratio Glucose POC Glucose 83 Calculated Osmolality Calcium Venous Ioniz Calcium Phosphorus Magnesium Iron % Saturation Transferrin Total Bilirubin AST ALT Alkaline Phosphatase Creatine Kinase C-Reactive Protein B-Natriuretic Peptide Serum Total Protein Albumin Globulin Albumin/Globulin Ratio Vitamin B12 Folate Random Cortisol Synovial Source Synovial Color Synovial Appearance Synovial Volume Synovial RBC Synovial Tot Nuc Cell Synovial Band Neuts Synovial Basophils Synovial Eosinophils Synovial Seg Neuts % Synovial Lymphocytes % Synovial Monocytes % Synovial Other Cells % Synovial Crystals Vancomycin Trough A. baumannii (PCR) Not Detected Chlamy pneumoniae PCR Adenovirus (PCR) B. pertussis DNA (PCR) B.parapertussis DNA PCR Kirti albicans (PCR) Not Detected C. glabrata (PCR) Not Detected C. krusei (PCR) Not Detected C. parapsilosis (PCR) Not Detected C. tropicalis (PCR) Not Detected Coronavirus OC43 (PCR) Coronavirus HKU1 (PCR) Coronavirus 229E (PCR) Coronavirus NL63 (PCR) Enterobacteriac sp PCR Not Detected E. cloacae complex PCR Not Detected Enterococcus sp PCR Not Detected E. coli (PCR) Not Detected H. influenzae (PCR) Not Detected Herpes Simplex Source HSV I HSV II Human Metapneumovir PCR Influenza A (H1) PCR Influ A (H1N1/09) PCR Influenza A (H3) PCR Influenza A Untype (PCR) Influenza Type B (PCR) Klebsiella oxytoca PCR Not Detected Klebsiella pneumoniae Not Detected List. monocytogenes PCR Not Detected M.pneumoniae DNA (PCR) N. meningitidis (PCR) Not Detected Parainfluenza 1 (PCR) Parainfluenza 2 (PCR) Parainfluenza 3 (PCR) Parainfluenza 4 (PCR) Proteus species (PCR) Not Detected RSV (PCR) Entero/Rhino (PCR) Serratia marcescens PCR Not Detected Staphylococcus sp PCR DETECTED A Staph aureus (PCR) DETECTED A mecA-Methicil Res Gene DETECTED A Streptococcus sp PCR Not Detected Group A Strep DNA Not Detected Group B Strep (PCR) Not Detected Strep pneumoniae (PCR) Not Detected P. aeruginosa (PCR) Not Detected Ivory/B-Vanco Res Genes Not Detected KPC (blaKPC) Detect PCR Not Detected Specimen Rejected Blood Type Antibody Screen Crossmatch 04/16/18 04/16/18 04/15/18 01:28 01:28 20:30 WBC 15.4 H RBC 3.25 L Hgb 9.5 L Hct 28.7 L MCV 88.3 MCH 29.2 MCHC 33.1 RDW 14.2 Plt Count 480 H MPV 10.6 Immature Gran % 3.8 Seg Neutrophils % 83.3 Band Neutrophils % Lymphocytes % 8.5 Monocytes % 3.5 Eosinophils % 0.6 Basophils % 0.3 Neutrophils # 12.8 H Lymphocytes # 1.3 Monocytes # 0.5 Eosinophils # 0.1 Basophils # 0.0 Toxic Granulation Platelet Estimate Large Platelets Anisocytosis ESR PT INR Heparin Anti-Xa, Unfract Sodium 132 L Potassium 3.6 Chloride 101 Carbon Dioxide 25 BUN 21 Creatinine 0.43 L Est GFR ( Amer) > 60 Est GFR (Non-Af Amer) > 60 BUN/Creatinine Ratio 49 H Glucose 167 H POC Glucose 342 H Calculated Osmolality 281 Calcium 7.7 L Venous Ioniz Calcium Phosphorus Magnesium Iron % Saturation Transferrin Total Bilirubin AST ALT Alkaline Phosphatase Creatine Kinase C-Reactive Protein B-Natriuretic Peptide Serum Total Protein Albumin Globulin Albumin/Globulin Ratio Vitamin B12 Folate Random Cortisol Synovial Source Synovial Color Synovial Appearance Synovial Volume Synovial RBC Synovial Tot Nuc Cell Synovial Band Neuts Synovial Basophils Synovial Eosinophils Synovial Seg Neuts % Synovial Lymphocytes % Synovial Monocytes % Synovial Other Cells % Synovial Crystals Vancomycin Trough A. baumannii (PCR) Chlamy pneumoniae PCR Adenovirus (PCR) B. pertussis DNA (PCR) B.parapertussis DNA PCR Kirti albicans (PCR) C. glabrata (PCR) C. krusei (PCR) C. parapsilosis (PCR) C. tropicalis (PCR) Coronavirus OC43 (PCR) Coronavirus HKU1 (PCR) Coronavirus 229E (PCR) Coronavirus NL63 (PCR) Enterobacteriac sp PCR E. cloacae complex PCR Enterococcus sp PCR E. coli (PCR) H. influenzae (PCR) Herpes Simplex Source HSV I HSV II Human Metapneumovir PCR Influenza A (H1) PCR Influ A (H1N1/09) PCR Influenza A (H3) PCR Influenza A Untype (PCR) Influenza Type B (PCR) Klebsiella oxytoca PCR Klebsiella pneumoniae List. monocytogenes PCR M.pneumoniae DNA (PCR) N. meningitidis (PCR) Parainfluenza 1 (PCR) Parainfluenza 2 (PCR) Parainfluenza 3 (PCR) Parainfluenza 4 (PCR) Proteus species (PCR) RSV (PCR) Entero/Rhino (PCR) Serratia marcescens PCR Staphylococcus sp PCR Staph aureus (PCR) mecA-Methicil Res Gene Streptococcus sp PCR Group A Strep DNA Group B Strep (PCR) Strep pneumoniae (PCR) P. aeruginosa (PCR) Ivory/B-Vanco Res Genes KPC (blaKPC) Detect PCR Specimen Rejected Blood Type Antibody Screen Crossmatch 04/15/18 04/15/18 04/15/18 20:12 17:20 16:21 WBC RBC Hgb Hct MCV MCH MCHC RDW Plt Count MPV Immature Gran % Seg Neutrophils % Band Neutrophils % Lymphocytes % Monocytes % Eosinophils % Basophils % Neutrophils # Lymphocytes # Monocytes # Eosinophils # Basophils # Toxic Granulation Platelet Estimate Large Platelets Anisocytosis ESR PT INR Heparin Anti-Xa, Unfract 0.25 L Sodium Potassium Chloride Carbon Dioxide BUN Creatinine Est GFR ( Amer) Est GFR (Non-Af Amer) BUN/Creatinine Ratio Glucose POC Glucose 214 H Calculated Osmolality Calcium Venous Ioniz Calcium Phosphorus Magnesium Iron % Saturation Transferrin Total Bilirubin AST ALT Alkaline Phosphatase Creatine Kinase C-Reactive Protein B-Natriuretic Peptide 219 H Serum Total Protein Albumin Globulin Albumin/Globulin Ratio Vitamin B12 Folate Random Cortisol Synovial Source Synovial Color Synovial Appearance Synovial Volume Synovial RBC Synovial Tot Nuc Cell Synovial Band Neuts Synovial Basophils Synovial Eosinophils Synovial Seg Neuts % Synovial Lymphocytes % Synovial Monocytes % Synovial Other Cells % Synovial Crystals Vancomycin Trough A. baumannii (PCR) Chlamy pneumoniae PCR Adenovirus (PCR) B. pertussis DNA (PCR) B.parapertussis DNA PCR Kirti albicans (PCR) C. glabrata (PCR) C. krusei (PCR) C. parapsilosis (PCR) C. tropicalis (PCR) Coronavirus OC43 (PCR) Coronavirus HKU1 (PCR) Coronavirus 229E (PCR) Coronavirus NL63 (PCR) Enterobacteriac sp PCR E. cloacae complex PCR Enterococcus sp PCR E. coli (PCR) H. influenzae (PCR) Herpes Simplex Source HSV I HSV II Human Metapneumovir PCR Influenza A (H1) PCR Influ A (H1N1/09) PCR Influenza A (H3) PCR Influenza A Untype (PCR) Influenza Type B (PCR) Klebsiella oxytoca PCR Klebsiella pneumoniae List. monocytogenes PCR M.pneumoniae DNA (PCR) N. meningitidis (PCR) Parainfluenza 1 (PCR) Parainfluenza 2 (PCR) Parainfluenza 3 (PCR) Parainfluenza 4 (PCR) Proteus species (PCR) RSV (PCR) Entero/Rhino (PCR) Serratia marcescens PCR Staphylococcus sp PCR Staph aureus (PCR) mecA-Methicil Res Gene Streptococcus sp PCR Group A Strep DNA Group B Strep (PCR) Strep pneumoniae (PCR) P. aeruginosa (PCR) Ivory/B-Vanco Res Genes KPC (blaKPC) Detect PCR Specimen Rejected Blood Type Antibody Screen Crossmatch 04/15/18 04/15/18 04/15/18 16:20 16:12 11:16 WBC RBC Hgb Hct MCV MCH MCHC RDW Plt Count MPV Immature Gran % Seg Neutrophils % Band Neutrophils % Lymphocytes % Monocytes % Eosinophils % Basophils % Neutrophils # Lymphocytes # Monocytes # Eosinophils # Basophils # Toxic Granulation Platelet Estimate Large Platelets Anisocytosis ESR PT INR Heparin Anti-Xa, Unfract Sodium Potassium Chloride Carbon Dioxide BUN Creatinine Est GFR ( Amer) Est GFR (Non-Af Amer) BUN/Creatinine Ratio Glucose POC Glucose 250 H Calculated Osmolality Calcium Venous Ioniz Calcium Phosphorus Magnesium Iron % Saturation Transferrin Total Bilirubin AST ALT Alkaline Phosphatase Creatine Kinase C-Reactive Protein B-Natriuretic Peptide Serum Total Protein Albumin Globulin Albumin/Globulin Ratio Vitamin B12 Folate Random Cortisol Synovial Source Synovial Color Synovial Appearance Synovial Volume Synovial RBC Synovial Tot Nuc Cell Synovial Band Neuts Synovial Basophils Synovial Eosinophils Synovial Seg Neuts % Synovial Lymphocytes % Synovial Monocytes % Synovial Other Cells % Synovial Crystals Vancomycin Trough A. baumannii (PCR) Chlamy pneumoniae PCR Not Detected Adenovirus (PCR) Not Detected B. pertussis DNA (PCR) Not Detected B.parapertussis DNA PCR Not Detected Kirti albicans (PCR) C. glabrata (PCR) C. krusei (PCR) C. parapsilosis (PCR) C. tropicalis (PCR) Coronavirus OC43 (PCR) Not Detected Coronavirus HKU1 (PCR) Not Detected Coronavirus 229E (PCR) Not Detected Coronavirus NL63 (PCR) Not Detected Enterobacteriac sp PCR E. cloacae complex PCR Enterococcus sp PCR E. coli (PCR) H. influenzae (PCR) Herpes Simplex Source HSV I HSV II Human Metapneumovir PCR Not Detected Influenza A (H1) PCR Not Detected Influ A (H1N1/09) PCR Not Detected Influenza A (H3) PCR Not Detected Influenza A Untype (PCR) Not Detected Influenza Type B (PCR) Not Detected Klebsiella oxytoca PCR Klebsiella pneumoniae List. monocytogenes PCR M.pneumoniae DNA (PCR) Not Detected N. meningitidis (PCR) Parainfluenza 1 (PCR) Not Detected Parainfluenza 2 (PCR) Not Detected Parainfluenza 3 (PCR) Not Detected Parainfluenza 4 (PCR) Not Detected Proteus species (PCR) RSV (PCR) Not Detected Entero/Rhino (PCR) Not Detected Serratia marcescens PCR Staphylococcus sp PCR Staph aureus (PCR) mecA-Methicil Res Gene Streptococcus sp PCR Group A Strep DNA Group B Strep (PCR) Strep pneumoniae (PCR) P. aeruginosa (PCR) Ivory/B-Vanco Res Genes KPC (blaKPC) Detect PCR Specimen Rejected Volume Blood Type Antibody Screen Crossmatch 04/15/18 04/15/18 04/15/18 09:17 09:17 07:36 WBC RBC Hgb Hct MCV MCH MCHC RDW Plt Count MPV Immature Gran % Seg Neutrophils % Band Neutrophils % Lymphocytes % Monocytes % Eosinophils % Basophils % Neutrophils # Lymphocytes # Monocytes # Eosinophils # Basophils # Toxic Granulation Platelet Estimate Large Platelets Anisocytosis ESR PT INR Heparin Anti-Xa, Unfract 0.18 L Sodium Potassium Chloride Carbon Dioxide BUN Creatinine Est GFR ( Amer) Est GFR (Non-Af Amer) BUN/Creatinine Ratio Glucose POC Glucose 206 H Calculated Osmolality Calcium Venous Ioniz Calcium Phosphorus Magnesium Iron % Saturation Transferrin Total Bilirubin AST ALT Alkaline Phosphatase Creatine Kinase C-Reactive Protein B-Natriuretic Peptide Serum Total Protein Albumin Globulin Albumin/Globulin Ratio Vitamin B12 Folate Random Cortisol Synovial Source Synovial Color Synovial Appearance Synovial Volume Synovial RBC Synovial Tot Nuc Cell Synovial Band Neuts Synovial Basophils Synovial Eosinophils Synovial Seg Neuts % Synovial Lymphocytes % Synovial Monocytes % Synovial Other Cells % Synovial Crystals Vancomycin Trough 14 H A. baumannii (PCR) Chlamy pneumoniae PCR Adenovirus (PCR) B. pertussis DNA (PCR) B.parapertussis DNA PCR Kirti albicans (PCR) C. glabrata (PCR) C. krusei (PCR) C. parapsilosis (PCR) C. tropicalis (PCR) Coronavirus OC43 (PCR) Coronavirus HKU1 (PCR) Coronavirus 229E (PCR) Coronavirus NL63 (PCR) Enterobacteriac sp PCR E. cloacae complex PCR Enterococcus sp PCR E. coli (PCR) H. influenzae (PCR) Herpes Simplex Source HSV I HSV II Human Metapneumovir PCR Influenza A (H1) PCR Influ A (H1N1/09) PCR Influenza A (H3) PCR Influenza A Untype (PCR) Influenza Type B (PCR) Klebsiella oxytoca PCR Klebsiella pneumoniae List. monocytogenes PCR M.pneumoniae DNA (PCR) N. meningitidis (PCR) Parainfluenza 1 (PCR) Parainfluenza 2 (PCR) Parainfluenza 3 (PCR) Parainfluenza 4 (PCR) Proteus species (PCR) RSV (PCR) Entero/Rhino (PCR) Serratia marcescens PCR Staphylococcus sp PCR Staph aureus (PCR) mecA-Methicil Res Gene Streptococcus sp PCR Group A Strep DNA Group B Strep (PCR) Strep pneumoniae (PCR) P. aeruginosa (PCR) Ivory/B-Vanco Res Genes KPC (blaKPC) Detect PCR Specimen Rejected Blood Type Antibody Screen Crossmatch 04/15/18 04/15/18 04/15/18 04:14 04:14 04:14 WBC RBC Hgb Hct MCV MCH MCHC RDW Plt Count MPV Immature Gran % Seg Neutrophils % Band Neutrophils % Lymphocytes % Monocytes % Eosinophils % Basophils % Neutrophils # Lymphocytes # Monocytes # Eosinophils # Basophils # Toxic Granulation Platelet Estimate Large Platelets Anisocytosis ESR 85 H PT INR Heparin Anti-Xa, Unfract 0.23 L Sodium Potassium Chloride Carbon Dioxide BUN Creatinine Est GFR ( Amer) Est GFR (Non-Af Amer) BUN/Creatinine Ratio Glucose POC Glucose Calculated Osmolality Calcium Venous Ioniz Calcium Phosphorus Magnesium Iron % Saturation Transferrin Total Bilirubin AST ALT Alkaline Phosphatase Creatine Kinase C-Reactive Protein 137 H B-Natriuretic Peptide Serum Total Protein Albumin Globulin Albumin/Globulin Ratio Vitamin B12 Folate Random Cortisol Synovial Source Synovial Color Synovial Appearance Synovial Volume Synovial RBC Synovial Tot Nuc Cell Synovial Band Neuts Synovial Basophils Synovial Eosinophils Synovial Seg Neuts % Synovial Lymphocytes % Synovial Monocytes % Synovial Other Cells % Synovial Crystals Vancomycin Trough A. baumannii (PCR) Chlamy pneumoniae PCR Adenovirus (PCR) B. pertussis DNA (PCR) B.parapertussis DNA PCR Kirti albicans (PCR) C. glabrata (PCR) C. krusei (PCR) C. parapsilosis (PCR) C. tropicalis (PCR) Coronavirus OC43 (PCR) Coronavirus HKU1 (PCR) Coronavirus 229E (PCR) Coronavirus NL63 (PCR) Enterobacteriac sp PCR E. cloacae complex PCR Enterococcus sp PCR E. coli (PCR) H. influenzae (PCR) Herpes Simplex Source HSV I HSV II Human Metapneumovir PCR Influenza A (H1) PCR Influ A (H1N1/09) PCR Influenza A (H3) PCR Influenza A Untype (PCR) Influenza Type B (PCR) Klebsiella oxytoca PCR Klebsiella pneumoniae List. monocytogenes PCR M.pneumoniae DNA (PCR) N. meningitidis (PCR) Parainfluenza 1 (PCR) Parainfluenza 2 (PCR) Parainfluenza 3 (PCR) Parainfluenza 4 (PCR) Proteus species (PCR) RSV (PCR) Entero/Rhino (PCR) Serratia marcescens PCR Staphylococcus sp PCR Staph aureus (PCR) mecA-Methicil Res Gene Streptococcus sp PCR Group A Strep DNA Group B Strep (PCR) Strep pneumoniae (PCR) P. aeruginosa (PCR) Ivory/B-Vanco Res Genes KPC (blaKPC) Detect PCR Specimen Rejected Blood Type Antibody Screen Crossmatch 04/15/18 04/15/18 04/14/18 04:14 04:14 19:51 WBC 17.6 H RBC 3.13 L Hgb 9.0 L Hct 27.0 L MCV 86.3 MCH 28.8 MCHC 33.3 RDW 14.2 Plt Count 359 MPV 11.0 Immature Gran % 3.6 Seg Neutrophils % 84.0 Band Neutrophils % Lymphocytes % 9.1 Monocytes % 2.7 Eosinophils % 0.4 Basophils % 0.2 Neutrophils # 14.8 H Lymphocytes # 1.6 Monocytes # 0.5 Eosinophils # 0.1 Basophils # 0.0 Toxic Granulation Platelet Estimate Large Platelets Anisocytosis ESR PT INR Heparin Anti-Xa, Unfract Sodium 133 L Potassium 3.8 Chloride 104 Carbon Dioxide 24 BUN 28 H Creatinine 0.47 L Est GFR ( Amer) > 60 Est GFR (Non-Af Amer) > 60 BUN/Creatinine Ratio 60 H Glucose 256 H POC Glucose 321 H Calculated Osmolality 290 Calcium 7.8 L Venous Ioniz Calcium Phosphorus Magnesium Iron % Saturation Transferrin Total Bilirubin 1.0 AST 18 ALT 14 Alkaline Phosphatase 260 H Creatine Kinase C-Reactive Protein B-Natriuretic Peptide Serum Total Protein 4.8 L Albumin 1.7 L Globulin 3.1 Albumin/Globulin Ratio 0.5 L Vitamin B12 Folate Random Cortisol Synovial Source Synovial Color Synovial Appearance Synovial Volume Synovial RBC Synovial Tot Nuc Cell Synovial Band Neuts Synovial Basophils Synovial Eosinophils Synovial Seg Neuts % Synovial Lymphocytes % Synovial Monocytes % Synovial Other Cells % Synovial Crystals Vancomycin Trough A. baumannii (PCR) Chlamy pneumoniae PCR Adenovirus (PCR) B. pertussis DNA (PCR) B.parapertussis DNA PCR Kirti albicans (PCR) C. glabrata (PCR) C. krusei (PCR) C. parapsilosis (PCR) C. tropicalis (PCR) Coronavirus OC43 (PCR) Coronavirus HKU1 (PCR) Coronavirus 229E (PCR) Coronavirus NL63 (PCR) Enterobacteriac sp PCR E. cloacae complex PCR Enterococcus sp PCR E. coli (PCR) H. influenzae (PCR) Herpes Simplex Source HSV I HSV II Human Metapneumovir PCR Influenza A (H1) PCR Influ A (H1N1/09) PCR Influenza A (H3) PCR Influenza A Untype (PCR) Influenza Type B (PCR) Klebsiella oxytoca PCR Klebsiella pneumoniae List. monocytogenes PCR M.pneumoniae DNA (PCR) N. meningitidis (PCR) Parainfluenza 1 (PCR) Parainfluenza 2 (PCR) Parainfluenza 3 (PCR) Parainfluenza 4 (PCR) Proteus species (PCR) RSV (PCR) Entero/Rhino (PCR) Serratia marcescens PCR Staphylococcus sp PCR Staph aureus (PCR) mecA-Methicil Res Gene Streptococcus sp PCR Group A Strep DNA Group B Strep (PCR) Strep pneumoniae (PCR) P. aeruginosa (PCR) Ivory/B-Vanco Res Genes KPC (blaKPC) Detect PCR Specimen Rejected Blood Type Antibody Screen Crossmatch 04/14/18 04/14/18 04/14/18 19:18 19:18 16:26 WBC RBC Hgb 9.0 L D Hct 27.2 L MCV MCH MCHC RDW Plt Count MPV Immature Gran % Seg Neutrophils % Band Neutrophils % Lymphocytes % Monocytes % Eosinophils % Basophils % Neutrophils # Lymphocytes # Monocytes # Eosinophils # Basophils # Toxic Granulation Platelet Estimate Large Platelets Anisocytosis ESR PT INR Heparin Anti-Xa, Unfract 0.20 L Sodium Potassium Chloride Carbon Dioxide BUN Creatinine Est GFR ( Amer) Est GFR (Non-Af Amer) BUN/Creatinine Ratio Glucose POC Glucose 325 H Calculated Osmolality Calcium Venous Ioniz Calcium Phosphorus Magnesium Iron % Saturation Transferrin Total Bilirubin AST ALT Alkaline Phosphatase Creatine Kinase C-Reactive Protein B-Natriuretic Peptide Serum Total Protein Albumin Globulin Albumin/Globulin Ratio Vitamin B12 Folate Random Cortisol Synovial Source Synovial Color Synovial Appearance Synovial Volume Synovial RBC Synovial Tot Nuc Cell Synovial Band Neuts Synovial Basophils Synovial Eosinophils Synovial Seg Neuts % Synovial Lymphocytes % Synovial Monocytes % Synovial Other Cells % Synovial Crystals Vancomycin Trough A. baumannii (PCR) Chlamy pneumoniae PCR Adenovirus (PCR) B. pertussis DNA (PCR) B.parapertussis DNA PCR Kirti albicans (PCR) C. glabrata (PCR) C. krusei (PCR) C. parapsilosis (PCR) C. tropicalis (PCR) Coronavirus OC43 (PCR) Coronavirus HKU1 (PCR) Coronavirus 229E (PCR) Coronavirus NL63 (PCR) Enterobacteriac sp PCR E. cloacae complex PCR Enterococcus sp PCR E. coli (PCR) H. influenzae (PCR) Herpes Simplex Source HSV I HSV II Human Metapneumovir PCR Influenza A (H1) PCR Influ A (H1N1/09) PCR Influenza A (H3) PCR Influenza A Untype (PCR) Influenza Type B (PCR) Klebsiella oxytoca PCR Klebsiella pneumoniae List. monocytogenes PCR M.pneumoniae DNA (PCR) N. meningitidis (PCR) Parainfluenza 1 (PCR) Parainfluenza 2 (PCR) Parainfluenza 3 (PCR) Parainfluenza 4 (PCR) Proteus species (PCR) RSV (PCR) Entero/Rhino (PCR) Serratia marcescens PCR Staphylococcus sp PCR Staph aureus (PCR) mecA-Methicil Res Gene Streptococcus sp PCR Group A Strep DNA Group B Strep (PCR) Strep pneumoniae (PCR) P. aeruginosa (PCR) Ivory/B-Vanco Res Genes KPC (blaKPC) Detect PCR Specimen Rejected Blood Type Antibody Screen Crossmatch 04/14/18 04/14/18 04/14/18 12:13 11:52 08:00 WBC RBC Hgb Hct MCV MCH MCHC RDW Plt Count MPV Immature Gran % Seg Neutrophils % Band Neutrophils % Lymphocytes % Monocytes % Eosinophils % Basophils % Neutrophils # Lymphocytes # Monocytes # Eosinophils # Basophils # Toxic Granulation Platelet Estimate Large Platelets Anisocytosis ESR PT INR Heparin Anti-Xa, Unfract Sodium Potassium Chloride Carbon Dioxide BUN Creatinine Est GFR ( Amer) Est GFR (Non-Af Amer) BUN/Creatinine Ratio Glucose POC Glucose 263 H 229 H Calculated Osmolality Calcium Venous Ioniz Calcium Phosphorus Magnesium Iron % Saturation Transferrin Total Bilirubin AST ALT Alkaline Phosphatase Creatine Kinase C-Reactive Protein B-Natriuretic Peptide Serum Total Protein Albumin Globulin Albumin/Globulin Ratio Vitamin B12 Folate Random Cortisol Synovial Source Synovial Color Synovial Appearance Synovial Volume Synovial RBC Synovial Tot Nuc Cell Synovial Band Neuts Synovial Basophils Synovial Eosinophils Synovial Seg Neuts % Synovial Lymphocytes % Synovial Monocytes % Synovial Other Cells % Synovial Crystals Vancomycin Trough A. baumannii (PCR) Chlamy pneumoniae PCR Adenovirus (PCR) B. pertussis DNA (PCR) B.parapertussis DNA PCR Kirti albicans (PCR) C. glabrata (PCR) C. krusei (PCR) C. parapsilosis (PCR) C. tropicalis (PCR) Coronavirus OC43 (PCR) Coronavirus HKU1 (PCR) Coronavirus 229E (PCR) Coronavirus NL63 (PCR) Enterobacteriac sp PCR E. cloacae complex PCR Enterococcus sp PCR E. coli (PCR) H. influenzae (PCR) Herpes Simplex Source HSV I HSV II Human Metapneumovir PCR Influenza A (H1) PCR Influ A (H1N1/09) PCR Influenza A (H3) PCR Influenza A Untype (PCR) Influenza Type B (PCR) Klebsiella oxytoca PCR Klebsiella pneumoniae List. monocytogenes PCR M.pneumoniae DNA (PCR) N. meningitidis (PCR) Parainfluenza 1 (PCR) Parainfluenza 2 (PCR) Parainfluenza 3 (PCR) Parainfluenza 4 (PCR) Proteus species (PCR) RSV (PCR) Entero/Rhino (PCR) Serratia marcescens PCR Staphylococcus sp PCR Staph aureus (PCR) mecA-Methicil Res Gene Streptococcus sp PCR Group A Strep DNA Group B Strep (PCR) Strep pneumoniae (PCR) P. aeruginosa (PCR) Ivory/B-Vanco Res Genes KPC (blaKPC) Detect PCR Specimen Rejected Blood Type A POSITIVE Antibody Screen NEGATIVE Crossmatch See Detail 04/14/18 04/14/18 04/14/18 05:39 04:20 04:20 WBC 16.4 H RBC 2.51 L Hgb 7.3 L Hct 21.4 L MCV 85.3 MCH 29.1 MCHC 34.1 RDW 13.9 Plt Count 300 MPV 11.3 Immature Gran % 2.9 Seg Neutrophils % 87.2 Band Neutrophils % Lymphocytes % 7.4 Monocytes % 2.2 Eosinophils % 0.2 Basophils % 0.1 Neutrophils # 14.3 H Lymphocytes # 1.2 Monocytes # 0.4 Eosinophils # 0.0 Basophils # 0.0 Toxic Granulation Platelet Estimate Large Platelets Anisocytosis ESR PT INR Heparin Anti-Xa, Unfract Sodium 133 L Potassium 3.7 Chloride 105 Carbon Dioxide 22 L BUN 38 H Creatinine 0.63 Est GFR ( Amer) > 60 Est GFR (Non-Af Amer) > 60 BUN/Creatinine Ratio 60 H Glucose 223 H POC Glucose 194 H Calculated Osmolality 292 Calcium 7.6 L Venous Ioniz Calcium Phosphorus Magnesium 1.9 Iron % Saturation Transferrin Total Bilirubin AST ALT Alkaline Phosphatase Creatine Kinase C-Reactive Protein B-Natriuretic Peptide Serum Total Protein Albumin Globulin Albumin/Globulin Ratio Vitamin B12 Folate Random Cortisol Synovial Source Synovial Color Synovial Appearance Synovial Volume Synovial RBC Synovial Tot Nuc Cell Synovial Band Neuts Synovial Basophils Synovial Eosinophils Synovial Seg Neuts % Synovial Lymphocytes % Synovial Monocytes % Synovial Other Cells % Synovial Crystals Vancomycin Trough A. baumannii (PCR) Chlamy pneumoniae PCR Adenovirus (PCR) B. pertussis DNA (PCR) B.parapertussis DNA PCR Kirti albicans (PCR) C. glabrata (PCR) C. krusei (PCR) C. parapsilosis (PCR) C. tropicalis (PCR) Coronavirus OC43 (PCR) Coronavirus HKU1 (PCR) Coronavirus 229E (PCR) Coronavirus NL63 (PCR) Enterobacteriac sp PCR E. cloacae complex PCR Enterococcus sp PCR E. coli (PCR) H. influenzae (PCR) Herpes Simplex Source HSV I HSV II Human Metapneumovir PCR Influenza A (H1) PCR Influ A (H1N1/09) PCR Influenza A (H3) PCR Influenza A Untype (PCR) Influenza Type B (PCR) Klebsiella oxytoca PCR Klebsiella pneumoniae List. monocytogenes PCR M.pneumoniae DNA (PCR) N. meningitidis (PCR) Parainfluenza 1 (PCR) Parainfluenza 2 (PCR) Parainfluenza 3 (PCR) Parainfluenza 4 (PCR) Proteus species (PCR) RSV (PCR) Entero/Rhino (PCR) Serratia marcescens PCR Staphylococcus sp PCR Staph aureus (PCR) mecA-Methicil Res Gene Streptococcus sp PCR Group A Strep DNA Group B Strep (PCR) Strep pneumoniae (PCR) P. aeruginosa (PCR) Ivory/B-Vanco Res Genes KPC (blaKPC) Detect PCR Specimen Rejected Blood Type Antibody Screen Crossmatch 04/14/18 04/13/18 04/13/18 00:01 20:15 19:03 WBC RBC Hgb Hct MCV MCH MCHC RDW Plt Count MPV Immature Gran % Seg Neutrophils % Band Neutrophils % Lymphocytes % Monocytes % Eosinophils % Basophils % Neutrophils # Lymphocytes # Monocytes # Eosinophils # Basophils # Toxic Granulation Platelet Estimate Large Platelets Anisocytosis ESR PT INR Heparin Anti-Xa, Unfract 0.36 Sodium Potassium Chloride Carbon Dioxide BUN Creatinine Est GFR ( Amer) Est GFR (Non-Af Amer) BUN/Creatinine Ratio Glucose POC Glucose 250 H 332 H Calculated Osmolality Calcium Venous Ioniz Calcium Phosphorus Magnesium Iron % Saturation Transferrin Total Bilirubin AST ALT Alkaline Phosphatase Creatine Kinase C-Reactive Protein B-Natriuretic Peptide Serum Total Protein Albumin Globulin Albumin/Globulin Ratio Vitamin B12 Folate Random Cortisol Synovial Source Synovial Color Synovial Appearance Synovial Volume Synovial RBC Synovial Tot Nuc Cell Synovial Band Neuts Synovial Basophils Synovial Eosinophils Synovial Seg Neuts % Synovial Lymphocytes % Synovial Monocytes % Synovial Other Cells % Synovial Crystals Vancomycin Trough A. baumannii (PCR) Chlamy pneumoniae PCR Adenovirus (PCR) B. pertussis DNA (PCR) B.parapertussis DNA PCR Kirti albicans (PCR) C. glabrata (PCR) C. krusei (PCR) C. parapsilosis (PCR) C. tropicalis (PCR) Coronavirus OC43 (PCR) Coronavirus HKU1 (PCR) Coronavirus 229E (PCR) Coronavirus NL63 (PCR) Enterobacteriac sp PCR E. cloacae complex PCR Enterococcus sp PCR E. coli (PCR) H. influenzae (PCR) Herpes Simplex Source HSV I HSV II Human Metapneumovir PCR Influenza A (H1) PCR Influ A (H1N1/09) PCR Influenza A (H3) PCR Influenza A Untype (PCR) Influenza Type B (PCR) Klebsiella oxytoca PCR Klebsiella pneumoniae List. monocytogenes PCR M.pneumoniae DNA (PCR) N. meningitidis (PCR) Parainfluenza 1 (PCR) Parainfluenza 2 (PCR) Parainfluenza 3 (PCR) Parainfluenza 4 (PCR) Proteus species (PCR) RSV (PCR) Entero/Rhino (PCR) Serratia marcescens PCR Staphylococcus sp PCR Staph aureus (PCR) mecA-Methicil Res Gene Streptococcus sp PCR Group A Strep DNA Group B Strep (PCR) Strep pneumoniae (PCR) P. aeruginosa (PCR) Ivory/B-Vanco Res Genes KPC (blaKPC) Detect PCR Specimen Rejected Blood Type Antibody Screen Crossmatch 04/13/18 04/13/18 04/13/18 16:44 12:12 12:05 WBC RBC Hgb Hct MCV MCH MCHC RDW Plt Count MPV Immature Gran % Seg Neutrophils % Band Neutrophils % Lymphocytes % Monocytes % Eosinophils % Basophils % Neutrophils # Lymphocytes # Monocytes # Eosinophils # Basophils # Toxic Granulation Platelet Estimate Large Platelets Anisocytosis ESR PT INR Heparin Anti-Xa, Unfract 0.34 Sodium Potassium Chloride Carbon Dioxide BUN Creatinine Est GFR ( Amer) Est GFR (Non-Af Amer) BUN/Creatinine Ratio Glucose POC Glucose 327 H 229 H Calculated Osmolality Calcium Venous Ioniz Calcium Phosphorus Magnesium Iron % Saturation Transferrin Total Bilirubin AST ALT Alkaline Phosphatase Creatine Kinase C-Reactive Protein B-Natriuretic Peptide Serum Total Protein Albumin Globulin Albumin/Globulin Ratio Vitamin B12 Folate Random Cortisol Synovial Source Synovial Color Synovial Appearance Synovial Volume Synovial RBC Synovial Tot Nuc Cell Synovial Band Neuts Synovial Basophils Synovial Eosinophils Synovial Seg Neuts % Synovial Lymphocytes % Synovial Monocytes % Synovial Other Cells % Synovial Crystals Vancomycin Trough A. baumannii (PCR) Chlamy pneumoniae PCR Adenovirus (PCR) B. pertussis DNA (PCR) B.parapertussis DNA PCR Kirti albicans (PCR) C. glabrata (PCR) C. krusei (PCR) C. parapsilosis (PCR) C. tropicalis (PCR) Coronavirus OC43 (PCR) Coronavirus HKU1 (PCR) Coronavirus 229E (PCR) Coronavirus NL63 (PCR) Enterobacteriac sp PCR E. cloacae complex PCR Enterococcus sp PCR E. coli (PCR) H. influenzae (PCR) Herpes Simplex Source HSV I HSV II Human Metapneumovir PCR Influenza A (H1) PCR Influ A (H1N1/09) PCR Influenza A (H3) PCR Influenza A Untype (PCR) Influenza Type B (PCR) Klebsiella oxytoca PCR Klebsiella pneumoniae List. monocytogenes PCR M.pneumoniae DNA (PCR) N. meningitidis (PCR) Parainfluenza 1 (PCR) Parainfluenza 2 (PCR) Parainfluenza 3 (PCR) Parainfluenza 4 (PCR) Proteus species (PCR) RSV (PCR) Entero/Rhino (PCR) Serratia marcescens PCR Staphylococcus sp PCR Staph aureus (PCR) mecA-Methicil Res Gene Streptococcus sp PCR Group A Strep DNA Group B Strep (PCR) Strep pneumoniae (PCR) P. aeruginosa (PCR) Ivory/B-Vanco Res Genes KPC (blaKPC) Detect PCR Specimen Rejected Blood Type Antibody Screen Crossmatch 04/13/18 04/13/18 04/13/18 07:38 05:46 05:34 WBC RBC Hgb Hct MCV MCH MCHC RDW Plt Count MPV Immature Gran % Seg Neutrophils % Band Neutrophils % Lymphocytes % Monocytes % Eosinophils % Basophils % Neutrophils # Lymphocytes # Monocytes # Eosinophils # Basophils # Toxic Granulation Platelet Estimate Large Platelets Anisocytosis ESR PT INR Heparin Anti-Xa, Unfract 0.29 L Sodium Potassium Chloride Carbon Dioxide BUN Creatinine Est GFR ( Amer) Est GFR (Non-Af Amer) BUN/Creatinine Ratio Glucose POC Glucose 79 Calculated Osmolality Calcium Venous Ioniz Calcium Phosphorus Magnesium Iron % Saturation Transferrin Total Bilirubin AST ALT Alkaline Phosphatase Creatine Kinase C-Reactive Protein B-Natriuretic Peptide Serum Total Protein Albumin Globulin Albumin/Globulin Ratio Vitamin B12 Folate Random Cortisol Synovial Source Synovial Color Synovial Appearance Synovial Volume Synovial RBC Synovial Tot Nuc Cell Synovial Band Neuts Synovial Basophils Synovial Eosinophils Synovial Seg Neuts % Synovial Lymphocytes % Synovial Monocytes % Synovial Other Cells % Synovial Crystals Vancomycin Trough A. baumannii (PCR) Not Detected Chlamy pneumoniae PCR Adenovirus (PCR) B. pertussis DNA (PCR) B.parapertussis DNA PCR Kirti albicans (PCR) Not Detected C. glabrata (PCR) Not Detected C. krusei (PCR) Not Detected C. parapsilosis (PCR) Not Detected C. tropicalis (PCR) Not Detected Coronavirus OC43 (PCR) Coronavirus HKU1 (PCR) Coronavirus 229E (PCR) Coronavirus NL63 (PCR) Enterobacteriac sp PCR Not Detected E. cloacae complex PCR Not Detected Enterococcus sp PCR Not Detected E. coli (PCR) Not Detected H. influenzae (PCR) Not Detected Herpes Simplex Source HSV I HSV II Human Metapneumovir PCR Influenza A (H1) PCR Influ A (H1N1/09) PCR Influenza A (H3) PCR Influenza A Untype (PCR) Influenza Type B (PCR) Klebsiella oxytoca PCR Not Detected Klebsiella pneumoniae Not Detected List. monocytogenes PCR Not Detected M.pneumoniae DNA (PCR) N. meningitidis (PCR) Not Detected Parainfluenza 1 (PCR) Parainfluenza 2 (PCR) Parainfluenza 3 (PCR) Parainfluenza 4 (PCR) Proteus species (PCR) Not Detected RSV (PCR) Entero/Rhino (PCR) Serratia marcescens PCR Not Detected Staphylococcus sp PCR DETECTED A Staph aureus (PCR) DETECTED A mecA-Methicil Res Gene DETECTED A Streptococcus sp PCR Not Detected Group A Strep DNA Not Detected Group B Strep (PCR) Not Detected Strep pneumoniae (PCR) Not Detected P. aeruginosa (PCR) Not Detected Ivory/B-Vanco Res Genes N/A KPC (blaKPC) Detect PCR N/A Specimen Rejected Blood Type Antibody Screen Crossmatch 04/13/18 04/13/18 04/13/18 05:34 05:34 05:34 WBC 24.9 H RBC 2.95 L Hgb 8.5 L Hct 24.7 L MCV 83.7 MCH 28.8 MCHC 34.4 RDW 13.5 Plt Count 303 MPV 11.1 Immature Gran % Seg Neutrophils % 88.0 Band Neutrophils % 6.0 H Lymphocytes % 6.0 Monocytes % Eosinophils % Basophils % Neutrophils # 23.4 H Lymphocytes # 1.5 Monocytes # Eosinophils # Basophils # Toxic Granulation Platelet Estimate Normal Large Platelets Present A Anisocytosis 1+ A ESR 110 H PT INR Heparin Anti-Xa, Unfract Sodium Potassium Chloride Carbon Dioxide BUN Creatinine Est GFR ( Amer) Est GFR (Non-Af Amer) BUN/Creatinine Ratio Glucose POC Glucose Calculated Osmolality Calcium Venous Ioniz Calcium Phosphorus Magnesium Iron % Saturation Transferrin Total Bilirubin AST ALT Alkaline Phosphatase Creatine Kinase C-Reactive Protein 145 H B-Natriuretic Peptide Serum Total Protein Albumin Globulin Albumin/Globulin Ratio Vitamin B12 Folate Random Cortisol Synovial Source Synovial Color Synovial Appearance Synovial Volume Synovial RBC Synovial Tot Nuc Cell Synovial Band Neuts Synovial Basophils Synovial Eosinophils Synovial Seg Neuts % Synovial Lymphocytes % Synovial Monocytes % Synovial Other Cells % Synovial Crystals Vancomycin Trough A. baumannii (PCR) Chlamy pneumoniae PCR Adenovirus (PCR) B. pertussis DNA (PCR) B.parapertussis DNA PCR Kirti albicans (PCR) C. glabrata (PCR) C. krusei (PCR) C. parapsilosis (PCR) C. tropicalis (PCR) Coronavirus OC43 (PCR) Coronavirus HKU1 (PCR) Coronavirus 229E (PCR) Coronavirus NL63 (PCR) Enterobacteriac sp PCR E. cloacae complex PCR Enterococcus sp PCR E. coli (PCR) H. influenzae (PCR) Herpes Simplex Source HSV I HSV II Human Metapneumovir PCR Influenza A (H1) PCR Influ A (H1N1/09) PCR Influenza A (H3) PCR Influenza A Untype (PCR) Influenza Type B (PCR) Klebsiella oxytoca PCR Klebsiella pneumoniae List. monocytogenes PCR M.pneumoniae DNA (PCR) N. meningitidis (PCR) Parainfluenza 1 (PCR) Parainfluenza 2 (PCR) Parainfluenza 3 (PCR) Parainfluenza 4 (PCR) Proteus species (PCR) RSV (PCR) Entero/Rhino (PCR) Serratia marcescens PCR Staphylococcus sp PCR Staph aureus (PCR) mecA-Methicil Res Gene Streptococcus sp PCR Group A Strep DNA Group B Strep (PCR) Strep pneumoniae (PCR) P. aeruginosa (PCR) Ivory/B-Vanco Res Genes KPC (blaKPC) Detect PCR Specimen Rejected Blood Type Antibody Screen Crossmatch 04/13/18 04/12/18 04/12/18 05:34 23:09 20:00 WBC RBC Hgb Hct MCV MCH MCHC RDW Plt Count MPV Immature Gran % Seg Neutrophils % Band Neutrophils % Lymphocytes % Monocytes % Eosinophils % Basophils % Neutrophils # Lymphocytes # Monocytes # Eosinophils # Basophils # Toxic Granulation Platelet Estimate Large Platelets Anisocytosis ESR PT INR Heparin Anti-Xa, Unfract 0.26 L Sodium 134 L Potassium 3.4 L Chloride 105 Carbon Dioxide 23 BUN 47 H Creatinine 0.74 Est GFR ( Amer) > 60 Est GFR (Non-Af Amer) > 60 BUN/Creatinine Ratio 64 H Glucose 80 POC Glucose 205 H Calculated Osmolality 289 Calcium 7.9 L Venous Ioniz Calcium Phosphorus Magnesium Iron % Saturation Transferrin Total Bilirubin AST ALT Alkaline Phosphatase Creatine Kinase C-Reactive Protein B-Natriuretic Peptide Serum Total Protein Albumin Globulin Albumin/Globulin Ratio Vitamin B12 Folate Random Cortisol Synovial Source Synovial Color Synovial Appearance Synovial Volume Synovial RBC Synovial Tot Nuc Cell Synovial Band Neuts Synovial Basophils Synovial Eosinophils Synovial Seg Neuts % Synovial Lymphocytes % Synovial Monocytes % Synovial Other Cells % Synovial Crystals Vancomycin Trough A. baumannii (PCR) Chlamy pneumoniae PCR Adenovirus (PCR) B. pertussis DNA (PCR) B.parapertussis DNA PCR Kirti albicans (PCR) C. glabrata (PCR) C. krusei (PCR) C. parapsilosis (PCR) C. tropicalis (PCR) Coronavirus OC43 (PCR) Coronavirus HKU1 (PCR) Coronavirus 229E (PCR) Coronavirus NL63 (PCR) Enterobacteriac sp PCR E. cloacae complex PCR Enterococcus sp PCR E. coli (PCR) H. influenzae (PCR) Herpes Simplex Source HSV I HSV II Human Metapneumovir PCR Influenza A (H1) PCR Influ A (H1N1/09) PCR Influenza A (H3) PCR Influenza A Untype (PCR) Influenza Type B (PCR) Klebsiella oxytoca PCR Klebsiella pneumoniae List. monocytogenes PCR M.pneumoniae DNA (PCR) N. meningitidis (PCR) Parainfluenza 1 (PCR) Parainfluenza 2 (PCR) Parainfluenza 3 (PCR) Parainfluenza 4 (PCR) Proteus species (PCR) RSV (PCR) Entero/Rhino (PCR) Serratia marcescens PCR Staphylococcus sp PCR Staph aureus (PCR) mecA-Methicil Res Gene Streptococcus sp PCR Group A Strep DNA Group B Strep (PCR) Strep pneumoniae (PCR) P. aeruginosa (PCR) Ivory/B-Vanco Res Genes KPC (blaKPC) Detect PCR Specimen Rejected Blood Type Antibody Screen Crossmatch 04/12/18 04/12/18 04/12/18 16:20 16:20 16:20 WBC 23.7 H RBC 2.82 L Hgb 8.2 L Hct 23.5 L MCV 83.3 MCH 29.1 MCHC 34.9 RDW 13.5 Plt Count 253 MPV 11.3 Immature Gran % 2.1 Seg Neutrophils % 90.1 Band Neutrophils % Lymphocytes % 6.0 Monocytes % 1.6 Eosinophils % 0.1 Basophils % 0.1 Neutrophils # 21.4 H Lymphocytes # 1.4 Monocytes # 0.4 Eosinophils # 0.0 Basophils # 0.0 Toxic Granulation Present A Platelet Estimate Normal Large Platelets Present A Anisocytosis ESR PT INR Heparin Anti-Xa, Unfract 0.09 L Sodium 133 L Potassium 3.3 L Chloride 103 Carbon Dioxide 22 L BUN 51 H Creatinine 0.85 Est GFR ( Amer) > 60 Est GFR (Non-Af Amer) > 60 BUN/Creatinine Ratio 60 H Glucose 223 H POC Glucose Calculated Osmolality 297 Calcium 7.1 L Venous Ioniz Calcium Phosphorus Magnesium Iron % Saturation Transferrin Total Bilirubin AST ALT Alkaline Phosphatase Creatine Kinase C-Reactive Protein B-Natriuretic Peptide Serum Total Protein Albumin Globulin Albumin/Globulin Ratio Vitamin B12 Folate Random Cortisol Synovial Source Synovial Color Synovial Appearance Synovial Volume Synovial RBC Synovial Tot Nuc Cell Synovial Band Neuts Synovial Basophils Synovial Eosinophils Synovial Seg Neuts % Synovial Lymphocytes % Synovial Monocytes % Synovial Other Cells % Synovial Crystals Vancomycin Trough A. baumannii (PCR) Chlamy pneumoniae PCR Adenovirus (PCR) B. pertussis DNA (PCR) B.parapertussis DNA PCR Kirti albicans (PCR) C. glabrata (PCR) C. krusei (PCR) C. parapsilosis (PCR) C. tropicalis (PCR) Coronavirus OC43 (PCR) Coronavirus HKU1 (PCR) Coronavirus 229E (PCR) Coronavirus NL63 (PCR) Enterobacteriac sp PCR E. cloacae complex PCR Enterococcus sp PCR E. coli (PCR) H. influenzae (PCR) Herpes Simplex Source HSV I HSV II Human Metapneumovir PCR Influenza A (H1) PCR Influ A (H1N1/09) PCR Influenza A (H3) PCR Influenza A Untype (PCR) Influenza Type B (PCR) Klebsiella oxytoca PCR Klebsiella pneumoniae List. monocytogenes PCR M.pneumoniae DNA (PCR) N. meningitidis (PCR) Parainfluenza 1 (PCR) Parainfluenza 2 (PCR) Parainfluenza 3 (PCR) Parainfluenza 4 (PCR) Proteus species (PCR) RSV (PCR) Entero/Rhino (PCR) Serratia marcescens PCR Staphylococcus sp PCR Staph aureus (PCR) mecA-Methicil Res Gene Streptococcus sp PCR Group A Strep DNA Group B Strep (PCR) Strep pneumoniae (PCR) P. aeruginosa (PCR) Ivory/B-Vanco Res Genes KPC (blaKPC) Detect PCR Specimen Rejected Blood Type Antibody Screen Crossmatch 04/12/18 04/12/18 04/12/18 16:13 11:41 08:32 WBC RBC Hgb Hct MCV MCH MCHC RDW Plt Count MPV Immature Gran % Seg Neutrophils % Band Neutrophils % Lymphocytes % Monocytes % Eosinophils % Basophils % Neutrophils # Lymphocytes # Monocytes # Eosinophils # Basophils # Toxic Granulation Platelet Estimate Large Platelets Anisocytosis ESR PT INR Heparin Anti-Xa, Unfract Sodium Potassium Chloride Carbon Dioxide BUN Creatinine Est GFR ( Amer) Est GFR (Non-Af Amer) BUN/Creatinine Ratio Glucose POC Glucose 246 H 287 H Calculated Osmolality Calcium Venous Ioniz Calcium Phosphorus Magnesium Iron % Saturation Transferrin Total Bilirubin AST ALT Alkaline Phosphatase Creatine Kinase C-Reactive Protein B-Natriuretic Peptide Serum Total Protein Albumin Globulin Albumin/Globulin Ratio Vitamin B12 Folate Random Cortisol Synovial Source Synovial Color Synovial Appearance Synovial Volume Synovial RBC Synovial Tot Nuc Cell Synovial Band Neuts Synovial Basophils Synovial Eosinophils Synovial Seg Neuts % Synovial Lymphocytes % Synovial Monocytes % Synovial Other Cells % Synovial Crystals Vancomycin Trough 12 H A. baumannii (PCR) Chlamy pneumoniae PCR Adenovirus (PCR) B. pertussis DNA (PCR) B.parapertussis DNA PCR Kirti albicans (PCR) C. glabrata (PCR) C. krusei (PCR) C. parapsilosis (PCR) C. tropicalis (PCR) Coronavirus OC43 (PCR) Coronavirus HKU1 (PCR) Coronavirus 229E (PCR) Coronavirus NL63 (PCR) Enterobacteriac sp PCR E. cloacae complex PCR Enterococcus sp PCR E. coli (PCR) H. influenzae (PCR) Herpes Simplex Source HSV I HSV II Human Metapneumovir PCR Influenza A (H1) PCR Influ A (H1N1/09) PCR Influenza A (H3) PCR Influenza A Untype (PCR) Influenza Type B (PCR) Klebsiella oxytoca PCR Klebsiella pneumoniae List. monocytogenes PCR M.pneumoniae DNA (PCR) N. meningitidis (PCR) Parainfluenza 1 (PCR) Parainfluenza 2 (PCR) Parainfluenza 3 (PCR) Parainfluenza 4 (PCR) Proteus species (PCR) RSV (PCR) Entero/Rhino (PCR) Serratia marcescens PCR Staphylococcus sp PCR Staph aureus (PCR) mecA-Methicil Res Gene Streptococcus sp PCR Group A Strep DNA Group B Strep (PCR) Strep pneumoniae (PCR) P. aeruginosa (PCR) Ivory/B-Vanco Res Genes KPC (blaKPC) Detect PCR Specimen Rejected Blood Type Antibody Screen Crossmatch 04/12/18 04/12/18 04/12/18 08:32 07:26 02:18 WBC RBC Hgb Hct MCV MCH MCHC RDW Plt Count MPV Immature Gran % Seg Neutrophils % Band Neutrophils % Lymphocytes % Monocytes % Eosinophils % Basophils % Neutrophils # Lymphocytes # Monocytes # Eosinophils # Basophils # Toxic Granulation Platelet Estimate Large Platelets Anisocytosis ESR PT INR Heparin Anti-Xa, Unfract 0.20 L Sodium Potassium Chloride Carbon Dioxide BUN Creatinine Est GFR ( Amer) Est GFR (Non-Af Amer) BUN/Creatinine Ratio Glucose POC Glucose 328 H Calculated Osmolality Calcium Venous Ioniz Calcium Phosphorus Magnesium 2.0 Iron % Saturation Transferrin Total Bilirubin AST ALT Alkaline Phosphatase Creatine Kinase C-Reactive Protein B-Natriuretic Peptide Serum Total Protein Albumin Globulin Albumin/Globulin Ratio Vitamin B12 Folate Random Cortisol Synovial Source Synovial Color Synovial Appearance Synovial Volume Synovial RBC Synovial Tot Nuc Cell Synovial Band Neuts Synovial Basophils Synovial Eosinophils Synovial Seg Neuts % Synovial Lymphocytes % Synovial Monocytes % Synovial Other Cells % Synovial Crystals Vancomycin Trough A. baumannii (PCR) Chlamy pneumoniae PCR Adenovirus (PCR) B. pertussis DNA (PCR) B.parapertussis DNA PCR Kirti albicans (PCR) C. glabrata (PCR) C. krusei (PCR) C. parapsilosis (PCR) C. tropicalis (PCR) Coronavirus OC43 (PCR) Coronavirus HKU1 (PCR) Coronavirus 229E (PCR) Coronavirus NL63 (PCR) Enterobacteriac sp PCR E. cloacae complex PCR Enterococcus sp PCR E. coli (PCR) H. influenzae (PCR) Herpes Simplex Source HSV I HSV II Human Metapneumovir PCR Influenza A (H1) PCR Influ A (H1N1/09) PCR Influenza A (H3) PCR Influenza A Untype (PCR) Influenza Type B (PCR) Klebsiella oxytoca PCR Klebsiella pneumoniae List. monocytogenes PCR M.pneumoniae DNA (PCR) N. meningitidis (PCR) Parainfluenza 1 (PCR) Parainfluenza 2 (PCR) Parainfluenza 3 (PCR) Parainfluenza 4 (PCR) Proteus species (PCR) RSV (PCR) Entero/Rhino (PCR) Serratia marcescens PCR Staphylococcus sp PCR Staph aureus (PCR) mecA-Methicil Res Gene Streptococcus sp PCR Group A Strep DNA Group B Strep (PCR) Strep pneumoniae (PCR) P. aeruginosa (PCR) Ivory/B-Vanco Res Genes KPC (blaKPC) Detect PCR Specimen Rejected Blood Type Antibody Screen Crossmatch 04/12/18 04/12/18 04/12/18 02:18 02:18 02:18 WBC 32.9 H* RBC 2.97 L Hgb 8.6 L Hct 24.8 L MCV 83.5 MCH 29.0 MCHC 34.7 RDW 13.2 Plt Count 271 MPV 11.1 Immature Gran % Seg Neutrophils % 94.0 Band Neutrophils % 3.0 Lymphocytes % 2.0 Monocytes % 1.0 Eosinophils % Basophils % Neutrophils # 31.9 H Lymphocytes # 0.7 Monocytes # 0.3 Eosinophils # Basophils # Toxic Granulation Platelet Estimate Normal Large Platelets Anisocytosis ESR PT INR Heparin Anti-Xa, Unfract 0.09 L Sodium 132 L Potassium 3.1 L Chloride 101 Carbon Dioxide 23 BUN 62 H Creatinine 0.93 Est GFR ( Amer) > 60 Est GFR (Non-Af Amer) 59 L BUN/Creatinine Ratio 67 H Glucose 294 H POC Glucose Calculated Osmolality 302 H Calcium 8.1 L Venous Ioniz Calcium Phosphorus Magnesium Iron % Saturation Transferrin Total Bilirubin AST ALT Alkaline Phosphatase Creatine Kinase C-Reactive Protein B-Natriuretic Peptide Serum Total Protein Albumin Globulin Albumin/Globulin Ratio Vitamin B12 Folate Random Cortisol Synovial Source Synovial Color Synovial Appearance Synovial Volume Synovial RBC Synovial Tot Nuc Cell Synovial Band Neuts Synovial Basophils Synovial Eosinophils Synovial Seg Neuts % Synovial Lymphocytes % Synovial Monocytes % Synovial Other Cells % Synovial Crystals Vancomycin Trough A. baumannii (PCR) Chlamy pneumoniae PCR Adenovirus (PCR) B. pertussis DNA (PCR) B.parapertussis DNA PCR Kirti albicans (PCR) C. glabrata (PCR) C. krusei (PCR) C. parapsilosis (PCR) C. tropicalis (PCR) Coronavirus OC43 (PCR) Coronavirus HKU1 (PCR) Coronavirus 229E (PCR) Coronavirus NL63 (PCR) Enterobacteriac sp PCR E. cloacae complex PCR Enterococcus sp PCR E. coli (PCR) H. influenzae (PCR) Herpes Simplex Source HSV I HSV II Human Metapneumovir PCR Influenza A (H1) PCR Influ A (H1N1/09) PCR Influenza A (H3) PCR Influenza A Untype (PCR) Influenza Type B (PCR) Klebsiella oxytoca PCR Klebsiella pneumoniae List. monocytogenes PCR M.pneumoniae DNA (PCR) N. meningitidis (PCR) Parainfluenza 1 (PCR) Parainfluenza 2 (PCR) Parainfluenza 3 (PCR) Parainfluenza 4 (PCR) Proteus species (PCR) RSV (PCR) Entero/Rhino (PCR) Serratia marcescens PCR Staphylococcus sp PCR Staph aureus (PCR) mecA-Methicil Res Gene Streptococcus sp PCR Group A Strep DNA Group B Strep (PCR) Strep pneumoniae (PCR) P. aeruginosa (PCR) Ivory/B-Vanco Res Genes KPC (blaKPC) Detect PCR Specimen Rejected Blood Type Antibody Screen Crossmatch 04/11/18 04/11/18 20:13 11:22 WBC RBC Hgb Hct MCV MCH MCHC RDW Plt Count MPV Immature Gran % Seg Neutrophils % Band Neutrophils % Lymphocytes % Monocytes % Eosinophils % Basophils % Neutrophils # Lymphocytes # Monocytes # Eosinophils # Basophils # Toxic Granulation Platelet Estimate Large Platelets Anisocytosis ESR PT INR Heparin Anti-Xa, Unfract Sodium Potassium Chloride Carbon Dioxide BUN Creatinine Est GFR ( Amer) Est GFR (Non-Af Amer) BUN/Creatinine Ratio Glucose POC Glucose 297 H 409 H* Calculated Osmolality Calcium Venous Ioniz Calcium Phosphorus Magnesium Iron % Saturation Transferrin Total Bilirubin AST ALT Alkaline Phosphatase Creatine Kinase C-Reactive Protein B-Natriuretic Peptide Serum Total Protein Albumin Globulin Albumin/Globulin Ratio Vitamin B12 Folate Random Cortisol Synovial Source Synovial Color Synovial Appearance Synovial Volume Synovial RBC Synovial Tot Nuc Cell Synovial Band Neuts Synovial Basophils Synovial Eosinophils Synovial Seg Neuts % Synovial Lymphocytes % Synovial Monocytes % Synovial Other Cells % Synovial Crystals Vancomycin Trough A. baumannii (PCR) Chlamy pneumoniae PCR Adenovirus (PCR) B. pertussis DNA (PCR) B.parapertussis DNA PCR Kirti albicans (PCR) C. glabrata (PCR) C. krusei (PCR) C. parapsilosis (PCR) C. tropicalis (PCR) Coronavirus OC43 (PCR) Coronavirus HKU1 (PCR) Coronavirus 229E (PCR) Coronavirus NL63 (PCR) Enterobacteriac sp PCR E. cloacae complex PCR Enterococcus sp PCR E. coli (PCR) H. influenzae (PCR) Herpes Simplex Source HSV I HSV II Human Metapneumovir PCR Influenza A (H1) PCR Influ A (H1N1/09) PCR Influenza A (H3) PCR Influenza A Untype (PCR) Influenza Type B (PCR) Klebsiella oxytoca PCR Klebsiella pneumoniae List. monocytogenes PCR M.pneumoniae DNA (PCR) N. meningitidis (PCR) Parainfluenza 1 (PCR) Parainfluenza 2 (PCR) Parainfluenza 3 (PCR) Parainfluenza 4 (PCR) Proteus species (PCR) RSV (PCR) Entero/Rhino (PCR) Serratia marcescens PCR Staphylococcus sp PCR Staph aureus (PCR) mecA-Methicil Res Gene Streptococcus sp PCR Group A Strep DNA Group B Strep (PCR) Strep pneumoniae (PCR) P. aeruginosa (PCR) Ivory/B-Vanco Res Genes KPC (blaKPC) Detect PCR Specimen Rejected Blood Type Antibody Screen Crossmatch Consult Discharge Plan - Plan Referrals: Misael Lopez MD [Non-Partnered Physician] - (Patient is going to rehab no PCP appointment needed) Prescriptions: Apixaban [Eliquis] 5 mg PO BID 30 Days #60 tablet Inpatient Charges Provider: Dr. Samson Gunn Consult - Inpatient: [id number] <Louisa Estrada Yadira - Last Filed: 04/19/18 08:30> Date of Encounter: 04/18/18 Time of Encounter: 17:13 Assessment and Plan (1) Anemia Status: Acute Assessment and plan: Ms. Mckeon appears to have a normocytic, normochromic down trending hgb since admission Anemia in the setting of heparin gtt for chronic DVT and a-fib in preparation for upcoming orthopedic procedures No prior labs to compare to She also has a leukocytosis and likely reactive thrombocytosis in the setting of severe sepsis, pneumonia, bacteremia and septic arthritis of the knee (causative organism:MRSA) Folate/B12 replete Iron <10 Differentials of anemia may include acute blood loss potentially of GI source, sepsis/DIC, among others Plan: Check stool occult blood, ferritin, LDH, blood smear and fibrinogen to rule out disseminated process Continue heparin with close monitoring of hgb trend, stop heparin for acute decrease or for any s/s of bleeding at which may consider GI consultation Heparin may continue until cleared from surgery Risks versus benefits of buttermaker anticoagulation is TBD dependant upon further workup and monitoring Qualifiers: Anemia type: unspecified type Qualified Code(s): D64.9 - Anemia, unspecified (2) Deep venous thrombosis of left upper extremity Status: Acute Assessment and plan: Doppler reveals chronic DVT in the left brachial/radial veins. Plan as above Qualifiers: Affected thrombotic vein of extremity: brachial Chronicity: acute Qualified Code(s): I82.622 - Acute embolism and thrombosis of deep veins of left upper extremity (3) Atrial fibrillation with RVR Status: Resolved Assessment and plan: [id number] score 4 Cardiology note reviewed Risk versus benefits and appropriateness of penitentiary anticoagulation is TBD - Data of Consult Patient: new to practice Consult date: 04/19/18 Requesting Physician: Joseph Arciniega MD Primary Care Provider: PCP NONE Past Med Surg Social Fam HX - Past Medical History Medical history: arthritis, asthma, diabetes, hypertension Psychiatric history: no psych history - Past Surgical History Additional surgical history: skin cancer removed - Social History Smoking Status: Never smoker Smokeless Tobacco Status: No Alcohol use: none Drug use: none - Family History Mother Living Status: Age at : 93 Cause of : failure to thrive Father Living Status: Age at : 94 Cause of : failure to thrive Oncology - Exam - Constitutional Vitals: Temp Pulse Resp BP Pulse Ox 99.4 F 93 20 106/59 98 04/18/18 11:46 04/18/18 11:46 04/18/18 11:46 04/18/18 11:46 04/18/18 11:46
--- NOTE | 2018-04-18 19:42 | Orthopedic Operative Note ---
Date of procedure: 04/18/18 Pre-op diagnosis: Infected bilateral knees Post-op diagnosis: same (Bacteremia, UTI, patient status post left knee irrigation debridement on Saturday) Procedure: Procedure: Left knee arthroscopy irrigation debridement, right knee aspiration Estimated blood loss: 5cc Hardware: Cartilage surfaces: Patella:4 Trochlear groove:4 Medial compartment:4 Lateral compartment:4 Exam Under anesthesia: Loss of full motion grade 2 effusion no erythema Patient was brought to the operating room and placed on the operating room table. After general anesthesia was administered. The right knee was aspirated under sterile conditions returned serosanguineous fluid which was sent for culture. The operative leg was examined and noted. The operative leg was prepped and draped in the sterile surgical fashion. The patient received IV antibiotics prior to skin incision. A superior medial outflow portal was established. The arthroscope was introduced through an anterolateral portal. Diagnostic evaluation of the patella trochlear groove medial and lateral compartments were performed. Patient was noted to have grade 4 arthritic changes all 3 compartments. The medial and lateral menisci were evaluated. No meniscal tears were identified. ACL and PCL were without pathology. Patient had 6 L of irrigation when through the knee. The arthroscope was removed from the knee. Portals were closed with interrupted 2-0 nylon suture. The knee was infiltrated with half percent Marcaine with epinephrine. The patient was placed in a sterile dressing. The patient was extubated and tolerated the procedure well and transferred to the recovery room in stable condition. Anesthesia: GETA Surgeon: Braxton Fournier Was there an nurse's assistant present: No Estimated blood loss (cc): 5 Condition: stable Disposition: PACU
--- NOTE | 2018-04-18 19:46 | Anesthesia Evaluation Post Op ---
Date of Encounter: 04/18/18 Time of Encounter: 19:03 - Vital Signs Vital Signs: Vital Signs/O2 Sat, Most Current Temp Pulse Resp BP Pulse Ox 99.2 F 98 20 133/78 94 04/18/18 18:18 04/18/18 18:38 04/18/18 18:38 04/18/18 18:38 04/18/18 18:38 - Lungs Lungs: Clear Ascult./Percussion - Airway Airway: Non-obstructed - Cardiovascular Regular Rate - Mental Status Mental Status: Alert & Oriented, Answers Appropriately - Pain Pain Scale: 0 Pain Scale used: Numeric (1 - 10) - Nausea Vomiting Nausea Vomiting: Not Present - Hydration Hydration: Ice chips, Donohue catheter (purewic catheter) - Discharge PostOp Status: Transfer Patient to floor
[2018-04-18 20:19] LABS: Hemoglobin 8.8 g/dL (11.5-15.4)
[2018-04-18] MEDS ORDERED: Insulin DETEMIR 100 UNIT/ML X5UNITS SQ SCH (21:00)
[2018-04-18] MEDS: *HR* OxyCODONE Oral Soln 5 MG/5 ML UD.LIQ PO PRN (21:42)
[2018-04-19] MEDS: *HR* OxyCODONE Oral Soln 5 MG/5 ML UD.LIQ PO PRN ×5 (01:31→22:53)
[2018-04-19] MEDS ORDERED: *HR* Heparin 5,000 UNIT/ML VIAL IVP PRN (04:45)
[2018-04-19] MEDS ORDERED: *HR* Heparin 5,000 UNIT/ML VIAL IVP ONE (04:45)
[2018-04-19 04:58] LABS: Basophils % 0.3 %; Hematocrit 25.2 % (35.3-44.9); Immature Granulocytes % 0.8 % (0-4); Lymphocytes # 0.8 K/mcL (0.6-4.6); Lymphocytes % 6.4 %; Mean Corpuscular HGB Conc 31.7 g/dL (31.6-35.5); Mean Corpuscular Hemoglobin 28.6 pg (28.0-33.3); Mean Platelet Volume 9.8 fL (9.4-12.4); Monocytes # 0.3 K/mcL (0.0-1.3); Monocytes % 2.3 %; Neutrophils # 10.5 K/mcL (1.6-8.9); Platelet Count 755 K/mcL (140-400); Red Cell Distribution Width 14.6 % (11.5-14.5); Segmented Neutrophils % 90.2 %
[2018-04-19 05:16] LABS: BUN/Creatinine Ratio 36 (6-26); Blood Urea Nitrogen 16 mg/dL (8-23); Carbon Dioxide 30 mEq/L (23-29); Chloride 98 mEq/L (98-107); Glucose 222 mg/dL (70-105); Osmolality,Calculated 286 (280-300); Potassium 4.1 mEq/L (3.5-5.1); Sodium 134 mEq/L (136-145); eGFR For Non-African Americans > 60 (> 60)
[2018-04-19 05:29] LABS: Heparin anti-factor XA UFH 0.01 IU/mL (0.30-0.70); INR 1.2; Prothrombin Time 13.1 Seconds (9.4-12.1)
[2018-04-19] MEDS: Heparin 25,000 UNIT/500 ML D5W 25,000 UNIT/500 ML BAG IVC SCH (05:47)
[2018-04-19] MEDS: Multivit/Ca/Min/Fe/FA 1 TAB TABLET PO SCH (07:29)
[2018-04-19] MEDS: Metoprolol XL (24 HR) Succ 25 MG TAB.ER.24H PO SCH (07:29)
[2018-04-19] MEDS: Nystatin SUSP 5 ML UD.LIQ PO SCH ×4 (07:30→20:53)
[2018-04-19] MEDS: Furosemide 20 MG/2 ML VIAL IVP SCH ×2 (07:30→16:22)
[2018-04-19] MEDS: traMADol 50 MG TABLET PO SCH (07:30)
[2018-04-19] MEDS: Piperacillin/Tazobactam 3.375 GM in 0.9 % Sodium Chloride Mini Bag 100 ML IVPB SCH ×2 (07:31→16:23)
[2018-04-19] MEDS: Stomatitis Mixture 5 ML UDC PO SCH ×4 (07:32→20:53)
[2018-04-19] MEDS: Budesonide/Formoterol 160/4.5 1 PUFF INH IH SCH (07:50)
[2018-04-19] MEDS: Insulin LISPRO 300 UNITS/3 ML VIAL SQ SCH ×4 (07:51→21:02)
--- NOTE | 2018-04-19 09:16 | Internal Med Progress Note ---
<Levar Oneil S - Last Filed: 04/19/18 10:41> Hospitalist Progress Note - Encounter Date of Encounter: 04/19/18 Time of Encounter: 09:14 - Subjective Interval History: Pt is seen at the bedside. She is hospital day 13. The pt was admitted with c/o left shoulder and right knee pain on 04/06. She had been experiencing increasing pain over the last 6mos and was unable to complete her ADLs due to the worsening joint pain. The pt family reported intermittent episodes of confusion. Ortho was consulted to see the pt and they recommended outpatient management with PTOT and sports medicine. They recommended rheumatology consult. The pt then experienced A fib with RVR and was put on IV heparin anticoagulation as per cardiology and lopressor. - currently the pt has beta blockers held 2/2 hypotension Rheumatology saw the pt on 04/10 after a rigth knee arthrocentesis was performed . 10cc yellow, purulent fluid was obtained and fluid analysis showed CPPD crystals and g(+) cocci. -ortho and rheumatology discussed the case and the pt was brought to the OR for arthroscopy on 04/1104/15/18 - Pulmonology consulted for b/l pleural effusions, pt opted to try diuresis instead of an invasive procedure. Pulm has since signed off The pt reports some discomfort in her arm, knees and shoulder. She denies CP, SOB, N/V/D. She continues to have pain in her lower back and neck still. She states that sx with ortho went well yesterday . - Exam Vitals: Temp Pulse Resp BP Pulse Ox 98.8 F 87 18 115/65 97 04/19/18 07:46 04/19/18 07:46 04/19/18 07:46 04/19/18 07:46 04/19/18 07:46 Exam: Constitutional: Alert and oriented 3 mildly distressed secondary to pain HEENT: Normocephalic, atraumatic, moist mucus membranes Heart: Regular rhythm, no murmurs, no edema Lungs: lungs clear and equal bilaterally, no rhonchi, no wheeze Abdomen: Soft, normal bowel sounds, no rigidity Extremities: erythema of left knee, right knee wrapped in jovani bandage, left knee swollen, no shoulder pain elicited upon palpation, no calf tenderness, nonpitting edema of the left upper extremity has improved, lt hand swollen and tender to touch Skin: warm and dry, no lesions, no rashes, no jaundice Psych: thought content congruent, normal mood and normal affect Neurological: Alert and oriented x 3 - Assessment and Plan (1) Sepsis Current Visit: Yes Status: Acute Assessment and Plan: Likely secondary to septic joint Blood cx (+) for MRSA, wound cx (+) for MRSA, repeat blood cx resulted 04/14 and was positive for g(+) cocci and 04/16 (+) for g (+) cocci - Blood cx on 04/17: (+) for g (+) cocci - Pt currently does not meet sepsis criteria HR 87 Elevated white count at 11.7 - 04/11/18 underwent right knee arthroscopy irrigation debridement - medial and lateral menisci were evaluated. No tear of the medial or lateral meniscus was identified. - ACL and PCL w/o pathology. - right knee arthrocentesis was performed on 04/09 --- 10cc yellow, purulent fluid was obtained and fluid analysis showed CPPD crystals and g(+) cocci. - 04/18: ortho performed left knee arthroscopy irrigation and debridement, right knee aspiration - ESR on 04/15 was 85, increased to 111 on 04/17 Plan: - Vancomycin day 10, zosyn day 5 - - daptomycin day 2 -ID following As per ID, will most likely need 4-6 wks of abx tx Plan for midline or PICC placement when closer to discharge Recommends IDALIA prior to d/c - Ortho following Soft mechanical diet currently Synovial fluid from right knee pending results - CRP pending (2) Anemia Current Visit: Yes Status: Acute Assessment and Plan: May be 2/2 to sepsis, heme onc feels unlikely due to GIB Hemoglobin trending down. -admission hemoglobin 11.3 ---> 10.9 ---> 8.6 ---> 8.5 ----> 04/14/18 hemoglobin 7.3 -currently on heparin drip - pt was given 1 unit of RBC 04/14, hgb improved to 9, was 9.5 on 04/16 - 04/17 - hemoglobin 8.3, 04/18 - 8.0 - 04/19: hemoglobin 8.0 Iron profile Fe <10, transferrin 104 Plan: - FOBT pending - continue to monitor cbc - check H&H at 10am Plan to give pRBC if Hgb <8 H&H q6hr - heme onc saw the pt Recommended re-starting the heparin drip, currently on heparin drip LDH, ferritin pending (3) Pneumonia Current Visit: Yes Status: Suspected Assessment and Plan: Pt has been having temperature spikes, overnight t max was 100.5 - WBC 04/18: 11.5 - CXR on 04/14/18 showed bilateral effusions with bibasilar airspace disease - CT scan of chest showed Mod/large right pleural effusion, mod left pleural effusion w/ adjacent atelectasis or pneumonia at the bases Pulmonary vascular congestion - Blood cx showed g(+) cocci - Pt currently meets sepsis criteria HR 99 Elevated white count Source of infxn = blood (+) for gram positive cocci Repeat blood cx 04/16 (+) for gram positive cocci Plan: - continue vancomycin day 10, Zosyn day 5 - ID following - pt is getting Lasix 20mg IVP BID for pulmonary vascular congestion; will not perform thoracentesis as per pulmonology unless breathing status deteroirates Pulmonology signed off - follow cbc/cmp (4) Acute respiratory failure Current Visit: Yes Status: Resolved Assessment and Plan: See plan as above for pneumonia. - 97% on RA (5) Deep venous thrombosis of left upper extremity Current Visit: Yes Status: Acute Assessment and Plan: Pt has been reporting LUE pain -US ordered 04/14 revealed DVT in the left brachial and radial veins of the LUE Hemoglobin has continued to drop. Today is 8.0, yesterday was 9.3. 04/19: hemoglobin 8.0 Plan: - heparin drip was held yesterday, restarted last night. Will monitor H&H - consult heme onc Recommended restarting heparin drip - H&H pending - will speak to pharmacy about transitioning to eliquis and continuing antico agulation after discharge (6) Atrial fibrillation with RVR Current Visit: Yes Status: Resolved Assessment and Plan: New onset A fib RVR -cardiology consulted and signed off -Troponin <0.03 x 2 -ECHO on 04/10 showed LVEF 65-70%, normal LV systolic and diastolic fxn, no significant valvular dysfxn Currently in sinus rhythm, HR 83 -CHADVASc of 4 Plan: - amiodarone drip d/c as per cardiology - Lopressor 25mg PO adal as per cardiology - on Heparin drip as per protocol, pt had run of A fib RVR 04/13 as per nursing staff - on telemetry (7) Shoulder subluxation, left Current Visit: Yes Status: Acute Assessment and Plan: Pt pain improving Shoulder XR on 04/07 - Severe left glenohumeral joint osteoarthritic degenerative changes with large marginal osteophytes, subchondral changes and bony remottling. - Calcification, no acute fx or dislocation Plan: - PTOT as toleration - pain control with oxcodone - ice as needed - pt had IR guided fluorscopy 6 days ago , no fluid was aspirated (8) Arthritis of right knee Current Visit: Yes Status: Acute Assessment and Plan: Pt has hx of severe OA, fam hx of rheumatoid arthritis Plan: - right knee arthroscopy irrigation and debridement with Dr. Fournier 7 days ago - joint aspiration cultures positive for gram-positive cocci, repeat blood cx showed g(+) cocci - vancomycin day 10 - zosyn day 5 - daptomycin day 3 - joint was aspirated yesterday, synovial fluid report pending (9) Type 1 diabetes Current Visit: Yes Status: Acute Assessment and Plan: Glucose this morning 222 -continue determir, increased to 20U -continue sliding scale as per protocol (10) Hyponatremia Current Visit: Yes Status: Acute Assessment and Plan: Sodium this morning 134 Plan: - discontinue 75cc/hr 0.9% NS - lisinopril and HCTZ held - check BMP in the morning (11) Abnormal TSH Current Visit: Yes Status: Acute Assessment and Plan: TSH 0.248 -FT4 1.25, FT3 3.11 -likely subclinical hypothyroidism -follow up outpatient (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 Plan: - Replaced with oral supplement yesterday - continue to monitor electrolytes (15) DVT prophylaxis Current Visit: Yes Status: Acute Assessment and Plan: heparin drip (16) Thrombocytosis Current Visit: Yes Status: Acute Assessment and Plan: Plt count 755 today. 662 yesterday. - maybe reactive 2/2 sx - will reach out to heme onc for recs, pt has high r/o clotting DVT Prophylaxis: heparin drip - Time Spent with Patient Total time spent is greater than 50% in coordination of care (as documented) at patient's floor/unit and/or counseling patient: less than 15 minutes Plan of Care Discussed with: patient Internal Medicine: Result - Labs CBC & Chem 7: 04/19/18 09:29 04/19/18 04:10 Labs: Short CBC 04/18/18 04/18/18 04/19/18 Range/Units 11:37 19:59 04:10 WBC 11.7 H (4.3-11.1) K/mcL Hgb 8.3 L 8.8 L 8.0 L (11.5-15.4) g/dL Hct 25.6 L 27.0 L 25.2 L (35.3-44.9) % Plt Count 755 H (140-400) K/mcL Neutrophils # 10.5 H (1.6-8.9) K/mcL BMP 04/19/18 04:10 Sodium 134 L Potassium 4.1 Chloride 98 Carbon Dioxide 30 H BUN 16 Creatinine 0.44 L Glucose 222 H Calcium 8.0 L - ABG Interpretation ABG results: PT/INR, D-dimer PT 13.1 Seconds (9.4-12.1) H 04/19/18 05:05 D-Dimer 5840 ng/mLFEU (0-500) H 04/10/18 11:00 Consult Discharge Plan - Plan Referrals: Misael Lopez MD [Non-Partnered Physician] - (Patient is going to rehab no PCP appointment needed) Prescriptions: Apixaban [Eliquis] 5 mg PO BID 30 Days #60 tablet <Joseph Arciniega - Last Filed: 04/19/18 13:39> Hospitalist Progress Note - Exam Vitals: Temp Pulse Resp BP Pulse Ox 99.3 F 85 18 101/52 98 04/19/18 12:01 04/19/18 12:01 04/19/18 12:01 04/19/18 12:01 04/19/18 12:01 - Assessment and Plan (1) Shoulder subluxation, left Current Visit: Yes Status: Acute (2) Arthritis of right knee Current Visit: Yes Status: Acute (3) Type 1 diabetes Current Visit: Yes Status: Acute (4) Hyponatremia Current Visit: Yes Status: Acute (5) Abnormal TSH Current Visit: Yes Status: Acute (6) DVT prophylaxis Current Visit: Yes Status: Acute (7) Calcium pyrophosphate arthropathy Current Visit: Yes Status: Acute (8) Atrial fibrillation with RVR Current Visit: Yes Status: Resolved (9) Sepsis Current Visit: Yes Status: Acute (10) Bacteremia Current Visit: Yes Status: Acute (11) Hypokalemia Current Visit: Yes Status: Resolved (12) Anemia Current Visit: Yes Status: Acute (13) Deep venous thrombosis of left upper extremity Current Visit: Yes Status: Acute (14) Pneumonia Current Visit: Yes Status: Suspected (15) Acute respiratory failure Current Visit: Yes Status: Resolved (16) Thrombocytosis Current Visit: Yes Status: Acute - Time Spent with Patient Total time spent is greater than 50% in coordination of care (as documented) at patient's floor/unit and/or counseling patient: Internal Medicine: Result - Labs CBC & Chem 7: 04/19/18 09:29 04/19/18 04:10 Labs: Short CBC 04/18/18 04/19/18 04/19/18 Range/Units 19:59 04:10 09:29 WBC 11.7 H (4.3-11.1) K/mcL Hgb 8.8 L 8.0 L 9.0 L (11.5-15.4) g/dL Hct 27.0 L 25.2 L 27.8 L (35.3-44.9) % Plt Count 755 H (140-400) K/mcL Neutrophils # 10.5 H (1.6-8.9) K/mcL BMP 04/19/18 04:10 Sodium 134 L Potassium 4.1 Chloride 98 Carbon Dioxide 30 H BUN 16 Creatinine 0.44 L Glucose 222 H Calcium 8.0 L - ABG Interpretation ABG results: PT/INR, D-dimer PT 13.1 Seconds (9.4-12.1) H 04/19/18 05:05 D-Dimer 5840 ng/mLFEU (0-500) H 04/10/18 11:00 - Attending Attestation I examined this patient and my medical decision-making was reviewed with the Resident Physician. I agree with the documented findings, disposition and treatment plan as described except to the extent set forth below. This morning patient states she feels better. She did have a rough night and complained of fatigue. She currently denies any fevers/chills, n/v. Diffuse pain is slightly improved, and joint mobility slightly improved as well. Appetite is fair, she ate 50% of breakfast this AM. Edema in upper and lower extremities overall improved. 1 - Sepsis 2 - Bacteremia 3 - Acute Respiratory Failure with Hypoxia secondary to fluid overload 4 - Anemia 5 - Pneumonia 6 - DVT of left upper extremity 7 - Atrial fibrillation with RVR 8 - Left shoulder subluxation 9 - Type 1 DM 10 - Hyponatremia 11 - Calcium pyrophosphate arthropathy - s/p left knee arthroscopy, irrigation and debridement on 04/08. Also had right knee aspiration. - Obtain repeat blood cultures today since patient underwent washout of left knee which is another source of infection as seen on aspiration of joint. - Insert PICC when cultures negative for >48 hours - Will arrange for IDALIA prior to discharge - Hematology/Oncology consulted in regards to DVT in the setting of anemia. Monitor serial H&H while on heparin drip. - Continue Daptomycin/Vanc/Zosyn. - Continue Lasix 20 mg IV BID. <Levar Oneil S - Last Filed: 04/19/18 10:41> (1) Sepsis Qualifiers: Sepsis type: sepsis due to unspecified organism Qualified Code(s): A41.9 - Sepsis, unspecified organism (2) Anemia Qualifiers: Anemia type: unspecified type Qualified Code(s): D64.9 - Anemia, unspecified (3) Pneumonia Qualifiers: Pneumonia type: due to unspecified organism Laterality: bilateral Lung loc ation: unspecified part of lung Qualified Code(s): J18.9 - Pneumonia, unspecified organism (4) Acute respiratory failure Qualifiers: Respiratory failure complication: hypoxia Qualified Code(s): J96.01 - Acute respiratory failure with hypoxia (5) Deep venous thrombosis of left upper extremity Qualifiers: Affected thrombotic vein of extremity: brachial Chronicity: acute Qualified Code(s): I82.622 - Acute embolism and thrombosis of deep veins of left upper extremity (7) Shoulder subluxation, left Qualifiers: Encounter type: initial encounter Qualified Code(s): S43.002A - Unspecified subluxation of left shoulder joint, initial encounter (9) Type 1 diabetes Qualifiers: Diabetes mellitus complication status: with unspecified complications Qualified Code(s): E10.8 - Type 1 diabetes mellitus with unspecified complications <Joseph Arciniega - Last Filed: 04/19/18 13:39> (1) Shoulder subluxation, left Qualifiers: Encounter type: initial encounter Qualified Code(s): S43.002A - Unspecified subluxation of left shoulder joint, initial encounter (3) Type 1 diabetes Qualifiers: Diabetes mellitus complication status: with unspecified complications Qualified Code(s): E10.8 - Type 1 diabetes mellitus with unspecified complications (9) Sepsis Qualifiers: Sepsis type: sepsis due to unspecified organism Qualified Code(s): A41.9 - Sepsis, unspecified organism (12) Anemia Qualifiers: Anemia type: unspecified type Qualified Code(s): D64.9 - Anemia, unspecified (13) Deep venous thrombosis of left upper extremity Qualifiers: Affected thrombotic vein of extremity: brachial Chronicity: acute Qualified Code(s): I82.622 - Acute embolism and thrombosis of deep veins of left upper extremity (14) Pneumonia Qualifiers: Pneumonia type: due to unspecified organism Laterality: bilateral Lung location: unspecified part of lung Qualified Code(s): J18.9 - Pneumonia, unspecified organism (15) Acute respiratory failure Qualifiers: Respiratory failure complication: hypoxia Qualified Code(s): J96.01 - Acute respiratory failure with hypoxia
[2018-04-19 09:47] LABS: Hematocrit 27.8 % (35.3-44.9)
[2018-04-19] MEDS: Ascorbic Acid 500 MG TABLET PO SCH ×2 (10:26→20:54)
--- NOTE | 2018-04-19 12:17 | Orthopedics Progress Note ---
Date of Encounter: 04/19/18 Time of Encounter: 12:15 Subjective Principal diagnosis: Right Septic Knee Interval history: S: Resting in bed comfortably O: Afebrile and VSS Knee dressings on both sides C/D/I NV intact distally A: B/L knee washouts for septic arthritis P: Resume post op care, IV abx Objective Vital signs: Vital Signs Temp Pulse Resp BP Pulse Ox 04/19/18 12:01 99.3 F 85 18 101/52 98 04/19/18 08:00 73 04/19/18 07:46 98.8 F 87 18 115/65 97 04/19/18 05:56 103/65 04/19/18 04:07 98.0 F 72 16 96/57 100 04/19/18 00:07 99.6 F 83 14 108/63 98 04/18/18 22:07 99.0 F 94 16 121/60 97 04/18/18 21:26 100.8 F H 92 16 112/69 98 04/18/18 20:02 99.4 F 96 16 110/63 98 04/18/18 19:08 99.5 F 100 18 130/67 98 04/18/18 18:58 99.5 F 100 16 123/72 97 04/18/18 18:48 99.5 F 98 20 130/76 94 04/18/18 18:38 98 20 133/78 94 04/18/18 18:28 97 20 120/95 95 04/18/18 18:18 99.2 F 100 20 120/89 100 Intake and Output 04/18/18 04/19/18 04/19/18 23:59 07:59 15:59 Intake Total 100 / 100 350 / 350 580 / 580 Output Total 1405 / 1405 1075 / 1075 750 / 750 Balance -1305 / -1305 -725 / -725 -170 / -170 Intake: IV Fluids 100 / 100 350 / 350 100 / 100 Cubicin 500 MG In 0.9 % Sodium 100 / 100 Chloride 100 ML @ 200 mls/hr IVPB Q24H [facility] Rx#:[id number] Zosyn 3.375 GM In 0.9 % Sodium 100 / 100 100 / 100 Chloride (Mini-Bag +) 100 ML @ 25 mls/hr IVPB Q8HR [facility] Rx#: [id number] Vancocin 1,250 MG In 0.9 % 250 / 250 Sodium Chloride 250 ML @ 166.67 mls/hr IVPB Q12H [facility] Rx#: [id number] Oral 480 / 480 Output: Estimated Blood Loss 5 / 5 Urine Amount (Catheter) 700 / 700 Catheter 700 / 700 1075 / 1075 750 / 750 Urethral (Donohue) 700 / 700 Other: Meal Breakfast Percent of Meal Consumed 25% Weight 81 kg Blood Glucose* 209 203 287 Patient Weight 04/19/18 23:59 Weight 81 kg - Labs CBC & BMP: 04/19/18 09:29 04/19/18 04:10 Labs: Abnormal lab results WBC 11.7 K/mcL (4.3-11.1) H 04/19/18 04:10 RBC 2.80 M/mcL (3.82-4.97) L 04/19/18 04:10 Hgb 9.0 g/dL (11.5-15.4) L 04/19/18 09:29 Hct 27.8 % (35.3-44.9) L 04/19/18 09:29 RDW 14.6 % (11.5-14.5) H 04/19/18 04:10 Plt Count 755 K/mcL (140-400) H 04/19/18 04:10 Band Neutrophils % 6.0 % (0-4) H 04/13/18 05:34 Neutrophils # 10.5 K/mcL (1.6-8.9) H 04/19/18 04:10 Toxic Granulation Present (Not Present) A 04/12/18 16:20 Large Platelets Present (Not Present) A 04/13/18 05:34 Immature Plt Fraction 13.2 % (1.1-6.1) H 04/10/18 03:56 Anisocytosis 1+ (Not Present) A 04/13/18 05:34 ESR 111 mm/hr (0-15) H 04/17/18 09:00 PT 13.1 Seconds (9.4-12.1) H 04/19/18 05:05 D-Dimer 5840 ng/mLFEU (0-500) H 04/10/18 11:00 Heparin Anti-Xa, Unfract 0.01 IU/mL (0.30-0.70) L 04/19/18 05:05 VBG pCO2 33 mmHg (41-51) L 04/06/18 10:45 VBG pO2 84 mmHg (25-50) H 04/06/18 10:45 Sodium 134 mEq/L (136-145) L 04/19/18 04:10 Carbon Dioxide 30 mEq/L (23-29) H 04/19/18 04:10 Creatinine 0.44 mg/dL (0.60-1.20) L 04/19/18 04:10 BUN/Creatinine Ratio 36 (6-26) H 04/19/18 04:10 Glucose 222 mg/dL (70-105) H 04/19/18 04:10 POC Glucose 209 mg/dL (70-99) H 04/18/18 20:40 Hemoglobin A1c 7.8 % (-5.6) H 04/06/18 10:31 Calcium 8.0 mg/dL (8.6-10.3) L 04/19/18 04:10 Venous Ioniz Calcium 1.14 mmol/L (1.15-1.35) L 04/17/18 07:03 Iron < 10 mcg/dL (50-170) L 04/18/18 11:39 Transferrin 104 mg/dL (203-362) L 04/18/18 11:39 Alkaline Phosphatase 200 Units/L (34-104) H 04/18/18 04:10 Creatine Kinase 11 Units/L (30-223) L 04/17/18 16:55 C-Reactive Protein 166 mg/L (Less than 10) H 04/17/18 09:00 B-Natriuretic Peptide 219 pg/mL (Less than 100) H 04/15/18 20:12 Serum Total Protein 5.0 g/dL (6.4-8.9) L 04/18/18 04:10 Albumin 1.7 g/dL (3.5-5.7) L 04/18/18 04:10 Albumin/Globulin Ratio 0.5 (1.1-2.2) L 04/18/18 04:10 Vitamin B12 > 1500 pg/mL (250-1100) H 04/18/18 11:39 Folate > 22.3 ng/mL (3.0-16.0) H 04/18/18 11:39 TSH 0.248 mcIU/mL (0.340-5.600) L 04/06/18 10:31 Ur Specimen Adequacy See below A 04/06/18 11:55 Urine Protein 30 mg/dL (Neg-Trace) H 04/06/18 11:55 Urine Glucose (UA) 250 mg/dL (Normal) H 04/06/18 11:55 Urine Blood Small (Negative) H 04/06/18 11:55 Urine Microscopic RBC 5-15 per hpf (0-3) H 04/06/18 11:55 Ur Squamous Epith Cells Many per lpf (None-Few) H 04/06/18 11:55 Fluid Crystals CPPD Crystals Seen (None Seen) A 04/09/18 12:30 Synovial RBC 0.250 M/mcl (0.000-0.002) H 04/17/18 19:23 Synovial Tot Nuc Cell 4770 TNC/mcL (0-200) H 04/17/18 19:23 Vancomycin Trough 18 mcg/mL (5-10) H 04/18/18 11:39 Urine Opiates Screen Positive ng/mL (Reuoqb=435) H 04/06/18 11:54 HSV I DETECTED (Not Detect) A 04/16/18 10:40 Staphylococcus sp PCR DETECTED (Not Detect) A 04/16/18 01:28 Staph aureus (PCR) DETECTED (Not Detect) A 04/16/18 01:28 mecA-Methicil Res Gene DETECTED (Not Detect) A 04/16/18 01:28 Consult Discharge Plan - Plan Referrals: Misael Lopez MD [Non-Partnered Physician] - (Patient is going to rehab no PCP appointment needed) Prescriptions: Apixaban [Eliquis] 5 mg PO BID 30 Days #60 tablet
[2018-04-19] MEDS: *HR* Heparin 5,000 UNIT/ML VIAL IVP PRN (12:56)
[2018-04-19 16:53] LABS: Hematocrit 25.3 % (35.3-44.9); Hemoglobin 8.1 g/dL (11.5-15.4)
[2018-04-19] MEDS: Insulin DETEMIR 100 UNIT/ML X5UNITS SQ SCH (20:53)
[2018-04-19] MEDS: DAPTOmycin 500 MG in 0.9 % Sodium Chloride 100 ML IVPB SCH (20:54)
[2018-04-19 23:16] LABS: Hematocrit 24.5 % (35.3-44.9); Hemoglobin 7.8 g/dL (11.5-15.4)
[2018-04-20] MEDS: Piperacillin/Tazobactam 3.375 GM in 0.9 % Sodium Chloride Mini Bag 100 ML IVPB SCH ×3 (00:25→16:12)
[2018-04-20] MEDS: Heparin 25,000 UNIT/500 ML D5W 25,000 UNIT/500 ML BAG IVC SCH (00:32)
[2018-04-20 03:23] LABS: Basophils % 0.3 %; Eosinophils # 0.1 K/mcL (0.0-0.6); Eosinophils % 1.4 %; Hematocrit 24.1 % (35.3-44.9); Hemoglobin 7.7 g/dL (11.5-15.4); Immature Granulocytes % 0.9 % (0-4); Lymphocytes # 1.3 K/mcL (0.6-4.6); Lymphocytes % 14.2 %; Mean Corpuscular Hemoglobin 28.7 pg (28.0-33.3); Mean Corpuscular Volume 89.9 fL (83.0-100.0); Mean Platelet Volume 9.3 fL (9.4-12.4); Monocytes # 0.5 K/mcL (0.0-1.3); Monocytes % 5.9 %; Neutrophils # 6.9 K/mcL (1.6-8.9); Platelet Count 866 K/mcL (140-400); Red Blood Count 2.68 M/mcL (3.82-4.97); Red Cell Distribution Width 14.5 % (11.5-14.5); Segmented Neutrophils % 77.3 %
[2018-04-20 03:45] LABS: BUN/Creatinine Ratio 50 (6-26); Blood Urea Nitrogen 20 mg/dL (8-23); Calcium 7.8 mg/dL (8.6-10.3); Carbon Dioxide 29 mEq/L (23-29); Chloride 95 mEq/L (98-107); Glucose 200 mg/dL (70-105); Osmolality,Calculated 280 (280-300); Potassium 3.4 mEq/L (3.5-5.1); Sodium 131 mEq/L (136-145); eGFR For Non-African Americans > 60 (> 60)
[2018-04-20] MEDS: *HR* Heparin 5,000 UNIT/ML VIAL IVP PRN (04:33)
[2018-04-20] MEDS: *HR* OxyCODONE Oral Soln 5 MG/5 ML UD.LIQ PO PRN ×4 (05:02→22:07)
[2018-04-20] MEDS ORDERED: Potassium Chloride Elixir 20 MEQ/15 ML UDC PO ONE (07:13)
[2018-04-20] MEDS: traMADol 50 MG TABLET PO SCH (07:59)
[2018-04-20] MEDS: Metoprolol XL (24 HR) Succ 25 MG TAB.ER.24H PO SCH (07:59)
[2018-04-20] MEDS: Stomatitis Mixture 5 ML UDC PO SCH ×4 (08:00→20:37)
[2018-04-20] MEDS: Ascorbic Acid 500 MG TABLET PO SCH ×2 (08:00→20:39)
[2018-04-20] MEDS: Nystatin SUSP 5 ML UD.LIQ PO SCH ×4 (08:00→20:37)
[2018-04-20] MEDS: Furosemide 20 MG/2 ML VIAL IVP SCH ×2 (08:00→16:08)
[2018-04-20] MEDS: Insulin LISPRO 300 UNITS/3 ML VIAL SQ SCH ×4 (08:00→21:15)
[2018-04-20] MEDS: Multivit/Ca/Min/Fe/FA 1 TAB TABLET PO SCH (08:02)
[2018-04-20 08:12] LABS: Hemoglobin 7.4 g/dL (11.5-15.4)
--- NOTE | 2018-04-20 08:59 | Internal Med Progress Note ---
<Levar Oneil S - Last Filed: 04/20/18 08:56> Hospitalist Progress Note - Encounter Date of Encounter: 04/20/18 Time of Encounter: 08:56 - Subjective Interval History: Pt is seen at the bedside. She is hospital day 14. The pt was admitted with c/o left shoulder and right knee pain on 04/06. She had been experiencing increasing pain over the last 6mos and was unable to complete her ADLs due to the worsening joint pain. The pt family reported intermittent episodes of confusion. Ortho was consulted to see the pt and they recommended outpatient management with PTOT and sports medicine. They recommended rheumatology consult. The pt then experienced A fib with RVR and was put on IV heparin anticoagulation as per cardiology and lopressor. - currently the pt has beta blockers held 2/2 hypotension Rheumatology saw the pt on 04/10 after a rigth knee arthrocentesis was performed . 10cc yellow, purulent fluid was obtained and fluid analysis showed CPPD crystals and g(+) cocci. -ortho and rheumatology discussed the case and the pt was brought to the OR for arthroscopy on 04/1104/15/18 - Pulmonology consulted for b/l pleural effusions, pt opted to try diuresis instead of an invasive procedure. Pulm has since signed off The pt reports some discomfort in her arm, knees and shoulder. She denies CP, SOB, N/V/D. She feels fever feverish this morning and states she really doesn't feel good. - Exam Vitals: Temp Pulse Resp BP Pulse Ox 99.1 F 86 16 120/58 99 04/20/18 07:15 04/20/18 07:15 04/20/18 07:15 04/20/18 07:15 04/20/18 07:15 Exam: Constitutional: Alert and oriented 3 mildly distressed secondary to pain HEENT: Normocephalic, atraumatic, moist mucus membranes Heart: Regular rhythm, no murmurs, no edema Lungs: lungs clear and equal bilaterally, no rhonchi, no wheeze Abdomen: Soft, normal bowel sounds, no rigidity Extremities: erythema of left knee, right knee wrapped in jovani bandage, left knee swollen, no shoulder pain elicited upon palpation, no calf tenderness, nonpitting edema of the left upper extremity has improved, lt hand swollen and tender to touch Skin: warm and dry, no lesions, no rashes, no jaundice Psych: thought content congruent, normal mood and normal affect Neurological: Alert and oriented x 3 - Assessment and Plan (1) Sepsis Current Visit: Yes Status: Resolved Assessment and Plan: Likely secondary to septic joint Blood cx (+) for MRSA, wound cx (+) for MRSA, - repeat blood cx resulted 04/14 and was positive for g(+) cocci and 04/16 (+) for g (+) cocci - Blood cx on 04/17: (+) for g (+) cocci - Right and left knee cx both are (+) for gram positve cocci - Pt currently does not meet sepsis criteria HR 86 WBC count 8.9 t max overnight 100.2 - 04/11/18 underwent right knee arthroscopy irrigation debridement - medial and lateral menisci were evaluated. No tear of the medial or lateral meniscus was identified. - ACL and PCL w/o pathology. - right knee arthrocentesis was performed on 04/09 --- 10cc yellow, purulent fluid was obtained and fluid analysis showed CPPD crystals and g(+) cocci. - 04/18: ortho performed left knee arthroscopy irrigation and debridement, right knee aspiration - ESR on 04/15 was 85, increased to 111 on 04/17 Plan: - Vancomycin day 11, zosyn day 6 - - daptomycin day 3 -ID following As per ID, will most likely need 4-6 wks of abx tx Plan for midline or PICC placement when closer to discharge Recommends IDALIA prior to d/c - Ortho following Soft mechanical diet currently Synovial fluid from right knee pending results - CRP pending (2) Anemia Current Visit: Yes Status: Acute Assessment and Plan: May be 2/2 to sepsis, heme onc feels unlikely due to GIB Hemoglobin trending down. -admission hemoglobin 11.3 ---> 10.9 ---> 8.6 ---> 8.5 ----> 04/14/18 hemoglobin 7.3 -currently on heparin drip - pt was given 1 unit of RBC 04/14, hgb improved to 9, was 9.5 on 04/16 - 04/17 - hemoglobin 8.3, 04/18 - 8.0 - 04/19: hemoglobin 8.0 - 04/20: Hgb 7.4 Iron profile Fe <10, transferrin 104 Plan: - FOBT pending - continue to monitor cbc - check H&H q6hr Transfuse 1u this morning, type and screen - heme onc saw the pt Recommended re-starting the heparin drip, currently on heparin drip LDH, ferritin pending (3) Pneumonia Current Visit: Yes Status: Suspected Assessment and Plan: Pt has been having temperature spikes, overnight t max was 100.5 - WBC 04/18: 11.5 - CXR on 04/14/18 showed bilateral effusions with bibasilar airspace disease - CT scan of chest showed Mod/large right pleural effusion, mod left pleural effusion w/ adjacent atelectasis or pneumonia at the bases Pulmonary vascular congestion - Blood cx showed g(+) cocci Plan: - continue vancomycin day 11, Zosyn day 6 - ID following - pt is getting Lasix 20mg IVP BID for pulmonary vascular congestion; will not perform thoracentesis as per pulmonology unless breathing status deteroirates Pulmonology signed off - follow cbc/cmp (4) Acute respiratory failure Current Visit: Yes Status: Resolved Assessment and Plan: See plan as above for pneumonia. - 99% on RA (5) Deep venous thrombosis of left upper extremity Current Visit: Yes Status: Acute Assessment and Plan: Pt has been reporting LUE pain -US ordered 04/14 revealed DVT in the left brachial and radial veins of the LUE Hemoglobin has continued to drop. Today is 8.0, yesterday was 9.3. 04/19: hemoglobin 8.0 04/20: hemoglobin 7.4 Plan: - heparin drip was held - consult heme onc Recommended restarting heparin drip, currently held 2/2 decreaseing hemoglobin - H&H pending - will speak to pharmacy about transitioning to eliquis and continuing anticoagulation after discharge (6) Atrial fibrillation with RVR Current Visit: Yes Status: Resolved Assessment and Plan: New onset A fib RVR -cardiology consulted and signed off -Troponin <0.03 x 2 -ECHO on 04/10 showed LVEF 65-70%, normal LV systolic and diastolic fxn, no significant valvular dysfxn Currently in sinus rhythm, HR 83 -CHADVASc of 4 Plan: - amiodarone drip d/c as per cardiology - Lopressor 25mg PO adal as per cardiology - on Heparin drip as per protocol, pt had run of A fib RVR 04/13 as per nursing staff - on telemetry (7) Shoulder subluxation, left Current Visit: Yes Status: Acute Assessment and Plan: Shoulder XR on 04/07 - Severe left glenohumeral joint osteoarthritic degenerative changes with large marginal osteophytes, subchondral changes and bony remottling. - Calcification, no acute fx or dislocation Plan: - PTOT as toleration - pain control with oxcodone - ice as needed - pt had IR guided fluorscopy 7 days ago , no fluid was aspirated (8) Arthritis of right knee Current Visit: Yes Status: Acute Assessment and Plan: Pt has hx of severe OA, fam hx of rheumatoid arthritis Plan: - right knee arthroscopy irrigation and debridement with Dr. Fournier 8 days ago - joint aspiration cultures positive for gram-positive cocci, repeat blood cx showed g(+) cocci - vancomycin day 11 - zosyn day 6 - daptomycin day 4 - joint was aspirated yesterday, synovial fluid report pending (9) Type 1 diabetes Current Visit: Yes Status: Acute Assessment and Plan: Glucose this morning 97 -continue determir, increased to 20U -continue sliding scale as per protocol Pt had a glucose reading of 503 overnight. 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 Plan: - Replaced with oral supplement yesterday - continue to monitor electrolytes (15) DVT prophylaxis Current Visit: Yes Status: Acute Assessment and Plan: heparin ip (16) Thrombocytosis Current Visit: Yes Status: Acute Assessment and Plan: Plt count 866 today, - 04/19: 755 today. 04/18: 662 - maybe reactive 2/ sx - will reach out to heme onc for recs, pt has high r/o clotting DVT Prophylaxis: heparin drip held - Time Spent with Patient Total time spent is greater than 50% in coordination of care (as documented) at patient's floor/unit and/or counseling patient: less than 15 minutes Plan of Care Discussed with: patient Internal Medicine: Result - Labs CBC & Chem 7: 04/20/18 07:49 04/20/18 03:05 Labs: Short CBC 04/19/18 04/19/18 04/19/18 Range/Units 09:29 15:30 22:50 WBC (4.3-11.1) K/mcL Hgb 9.0 L 8.1 L 7.8 L (11.5-15.4) g/dL Hct 27.8 L 25.3 L 24.5 L (35.3-44.9) % Plt Count (140-400) K/mcL Neutrophils # (1.6-8.9) K/mcL 04/20/18 04/20/18 Range/Units 03:05 07:49 WBC 8.9 (4.3-11.1) K/mcL Hgb 7.7 L 7.4 L (11.5-15.4) g/dL Hct 24.1 L 23.0 L (35.3-44.9) % Plt Count 866 H (140-400) K/mcL Neutrophils # 6.9 (1.6-8.9) K/mcL BMP 04/20/18 03:05 Sodium 131 L Potassium 3.4 L Chloride 95 L Carbon Dioxide 29 BUN 20 Creatinine 0.40 L Glucose 200 H Calcium 7.8 L - ABG Interpretation ABG results: PT/INR, D-dimer PT 13.1 Seconds (9.4-12.1) H 04/19/18 05:05 D-Dimer 5840 ng/mLFEU (0-500) H 04/10/18 11:00 Consult Discharge Plan - Plan Referrals: Misael Lopez MD [Non-Partnered Physician] - (Patient is going to rehab no PCP appointment needed) Prescriptions: Apixaban [Eliquis] 5 mg PO BID 30 Days #60 tablet <Joseph Arciniega - Last Filed: 04/20/18 18:48> Hospitalist Progress Note - Exam Vitals: Temp Pulse Resp BP Pulse Ox 98.6 F 91 18 119/66 99 04/20/18 16:11 04/20/18 16:11 04/20/18 16:11 04/20/18 16:11 04/20/18 16:11 - Assessment and Plan (1) Shoulder subluxation, left Current Visit: Yes Status: Acute (2) Arthritis of right knee Current Visit: Yes Status: Acute (3) Type 1 diabetes Current Visit: Yes Status: Acute (4) Hyponatremia Current Visit: Yes Status: Acute (5) Abnormal TSH Current Visit: Yes Status: Acute (6) DVT prophylaxis Current Visit: Yes Status: Acute (7) Calcium pyrophosphate arthropathy Current Visit: Yes Status: Acute (8) Atrial fibrillation with RVR Current Visit: Yes Status: Resolved (9) Sepsis Current Visit: Yes Status: Resolved (10) Bacteremia Current Visit: Yes Status: Acute (11) Hypokalemia Current Visit: Yes Status: Acute (12) Anemia Current Visit: Yes Status: Acute (13) Deep venous thrombosis of left upper extremity Current Visit: Yes Status: Acute (14) Pneumonia Current Visit: Yes Status: Suspected (15) Acute respiratory failure Current Visit: Yes Status: Resolved (16) Thrombocytosis Current Visit: Yes Status: Acute - Time Spent with Patient Total time spent is greater than 50% in coordination of care (as documented) at patient's floor/unit and/or counseling patient: Internal Medicine: Result - Labs CBC & Chem 7: 04/20/18 14:46 04/20/18 03:05 Labs: Short CBC 04/19/18 04/20/18 04/20/18 Range/Units 22:50 03:05 07:49 WBC 8.9 (4.3-11.1) K/mcL Hgb 7.8 L 7.7 L 7.4 L (11.5-15.4) g/dL Hct 24.5 L 24.1 L 23.0 L (35.3-44.9) % Plt Count 866 H (140-400) K/mcL Neutrophils # 6.9 (1.6-8.9) K/mcL 04/20/18 Range/Units 14:46 WBC (4.3-11.1) K/mcL Hgb 8.8 L (11.5-15.4) g/dL Hct 26.3 L (35.3-44.9) % Plt Count (140-400) K/mcL Neutrophils # (1.6-8.9) K/mcL BMP 04/20/18 03:05 Sodium 131 L Potassium 3.4 L Chloride 95 L Carbon Dioxide 29 BUN 20 Creatinine 0.40 L Glucose 200 H Calcium 7.8 L - ABG Interpretation ABG results: PT/INR, D-dimer PT 13.1 Seconds (9.4-12.1) H 04/19/18 05:05 D-Dimer 5840 ng/mLFEU (0-500) H 04/10/18 11:00 - Attending Attestation I examined this patient and my medical decision-making was reviewed with the Resident Physician. I agree with the documented findings, disposition and treatment plan as described except to the extent set forth below. Patient not doing very well this morning. She is having worsening fatigue and appetite is poor. Diffuse body pain still present. She currently denies any fevers/chills, n/v. Edema of extremities continue to improve. 1 - Sepsis 2 - Bacteremia 3 - Acute Respiratory Failure with Hypoxia secondary to fluid overload 4 - Anemia 5 - Pneumonia 6 - DVT of left upper extremity 7 - Atrial fibrillation with RVR 8 - Left shoulder subluxation 9 - Type 1 DM 10 - Hyponatremia 11 - Calcium pyrophosphate arthropathy - s/p left knee arthroscopy, irrigation and debridement on 04/08. Also had r ight knee aspiration. - ID to evaluate patient tomorrow. Continue Dapto/Vanc/Zosyn - Insert PICC when cultures negative for >48 hours - Will arrange for IDALIA prior to discharge - Hematology/Oncology consulted in regards to DVT in the setting of anemia. Patient hemoglobin dropped again while the heparin drip was restarted. Heparin had to be held and 1 unit PRBC was given. I discussed this difficult situation with the patient again today; known DVT ideally will need anticoagulation, but she had worsening anemia, difficult to distinguish if she is having acute bleed vs acute anemia from severe illness. - Discussed with Heme/Onco on the phone, this appears less likely DIC, and so no DIC workup will be needed. - Continue Lasix 20 mg IV BID. - Prognosis is poor given multiple severe co-morbidities. We did again have a discussion on this situation, patient is currently in favor of using aggressive measures for treatment. She is not interested in any sort of comfort measures. <Levar Oneil - Last Filed: 04/20/18 08:56> (1) Sepsis Qualifiers: Sepsis type: sepsis due to unspecified organism Qualified Code(s): A41.9 - Sepsis, unspecified organism (2) Anemia Qualifiers: Anemia type: unspecified type Qualified Code(s): D64.9 - Anemia, unspecified (3) Pneumonia Qualifiers: Pneumonia type: due to unspecified organism Laterality: bilateral Lung location: unspecified part of lung Qualified Code(s): J18.9 - Pneumonia, unspecified organism (4) Acute respiratory failure Qualifiers: Respiratory failure complication: hypoxia Qualified Code(s): J96.01 - Acute respiratory failure with hypoxia (5) Deep venous thrombosis of left upper extremity Qualifiers: Affected thrombotic vein of extremity: brachial Chronicity: acute Qualified Code(s): I82.622 - Acute embolism and thrombosis of deep veins of left upper extremity (7) Shoulder subluxation, left Qualifiers: Encounter type: initial encounter Qualified Code(s): S43.002A - Unspecified subluxation of left shoulder joint, initial encounter (9) Type 1 diabetes Qualifiers: Diabetes mellitus complication status: with unspecified complications Qualified Code(s): E10.8 - Type 1 diabetes mellitus with unspecified com plications <Joseph Arciniega - Last Filed: 04/20/18 18:48> (1) Shoulder subluxation, left Qualifiers: Encounter type: initial encounter Qualified Code(s): S43.002A - Unspecified subluxation of left shoulder joint, initial encounter (3) Type 1 diabetes Qualifiers: Diabetes mellitus complication status: with unspecified complications Qualified Code(s): E10.8 - Type 1 diabetes mellitus with unspecified complications (9) Sepsis Qualifiers: Sepsis type: sepsis due to unspecified organism Qualified Code(s): A41.9 - Sepsis, unspecified organism (12) Anemia Qualifiers: Anemia type: unspecified type Qualified Code(s): D64.9 - Anemia, unspecified (13) Deep venous thrombosis of left upper extremity Qualifiers: Affected thrombotic vein of extremity: brachial Chronicity: acute Qualified Code(s): I82.622 - Acute embolism and thrombosis of deep veins of left upper extremity (14) Pneumonia Qualifiers: Pneumonia type: due to unspecified organism Laterality: bilateral Lung location: unspecified part of lung Qualified Code(s): J18.9 - Pneumonia, unspecified organism (15) Acute respiratory failure Qualifiers: Respiratory failure complication: hypoxia Qualified Code(s): J96.01 - Acute respiratory failure with hypoxia
[2018-04-20] MEDS ORDERED: 0.9 % Sodium Chloride 250 ML ONE (09:01)
[2018-04-20 10:37] LABS: Acinetobacter baumannii by PCR Not Detected (Not Detect); Candida albicans by PCR Not Detected (Not Detect); Candida glabrata by PCR Not Detected (Not Detect); Enterobacter cloacae Cmplx PCR Not Detected (Not Detect); Enterobacteriaceae by PCR Not Detected (Not Detect); Enterococcus by PCR Not Detected (Not Detect); Escherichia coli by PCR Not Detected (Not Detect); Klebsiella oxytoca by PCR Not Detected (Not Detect); Klebsiella pneumoniae by PCR Not Detected (Not Detect); Proteus by PCR Not Detected (Not Detect); Pseudomonas aeruginosa by PCR Not Detected (Not Detect); Serratia marcescens by PCR Not Detected (Not Detect); Staphylococcus aureus by PCR DETECTED (Not Detect); Staphylococcus by PCR DETECTED (Not Detect); Streptococcus agalactiae(B)PCR Not Detected (Not Detect); Streptococcus by PCR Not Detected (Not Detect); Streptococcus pneumoniae PCR Not Detected (Not Detect); Streptococcus pyogenes (A) PCR Not Detected (Not Detect); blaKPC Carbapenem-Resist Gene Not Detected (Not Detect); mecA Methicillin-Resist Gene DETECTED (Not Detect); vanA/B Vancomycin-Resist Genes Not Detected (Not Detect)
[2018-04-20 10:38] LABS: Candida krusei by PCR Not Detected (Not Detect); Candida parapsilosis by PCR Not Detected (Not Detect); Candida tropicalis by PCR Not Detected (Not Detect)
--- NOTE | 2018-04-20 10:44 | Orthopedics Progress Note ---
Date of Encounter: 04/20/18 Time of Encounter: 10:41 Subjective Principal diagnosis: Right Septic Knee Interval history: S: The patient is a bit more uncomfortable this morning saying that her lower extremities hurt that she is not able to localize the pain any further. O: Vital signs are stable Left upper extremity with diffuse edema and pain with passive motion but unable to localize; neurovascularly intact distally Knee dressings on both sides C/D/I; pain with passive motion of the bilateral lower extremities but again, patient unable to localize further NV intact distally to the bilateral lower extremities A: B/L knee washouts for septic arthritis Left upper extremity DVT Left shoulder pain though aspirate was dry Cultures noted P: Patient has diffuse extremity pain to the B/L LE and L UE however her weight blood cell count has normalized; recommend continued IV antibiotics at this point and follow clinically. Objective Vital signs: Vital Signs Temp Pulse Resp BP Pulse Ox 04/20/18 09:25 98.8 F 88 17 96/58 100 04/20/18 09:19 99.9 F H 90 18 106/67 100 04/20/18 07:15 99.1 F 86 16 120/58 99 04/20/18 07:00 84 04/20/18 04:30 100.2 F H 89 17 120/57 100 04/20/18 00:30 98.8 F 89 16 100/58 100 04/19/18 20:52 98.8 F 86 20 101/55 100 04/19/18 15:56 97.7 F 89 16 99/54 98 04/19/18 12:01 99.3 F 85 18 101/52 98 Intake and Output 04/19/18 04/20/18 04/20/18 23:59 07:59 15:59 Intake Total 441.3 / 441.3 588 / 588 400 / 400 Output Total 1800 / 1800 Balance 441.3 / 441.3 -1212 / -1212 400 / 400 Intake: IV Fluids 441.3 / 441.3 588 / 588 280 / 280 Heparin 25,000 UNIT/500 ML D5W 341.3 / 341.3 138 / 138 280 / 280 25,000 unit In 500 ml @ 14 UNIT /KG/HR 22.68 mls/hr IVC .Q22H3M [facility], [facility] Rx#:[id number] Cubicin 500 MG In 0.9 % Sodium 100 / 100 Chloride 100 ML @ 200 mls/hr IVPB Q24H [facility] Rx#:[id number] Zosyn 3.375 GM In 0.9 % Sodium 100 / 100 100 / 100 Chloride (Mini-Bag +) 100 ML @ 25 mls/hr IVPB Q8HR [facility] Rx#: [id number] Vancocin 1,250 MG In 0.9 % 250 / 250 Sodium Chloride 250 ML @ 166.67 mls/hr IVPB Q12H [facility] Rx#: [id number] Oral 120 / 120 Blood Product 0 / 0 Rbcs Leuko Poor As-1 Unit 0 / 0 [id number] Output: Urine 100 / 100 Catheter 1700 / 1700 Urethral (Donohue) 1700 / 1700 Other: Meal Breakfast Percent of Meal Consumed 0% Weight 84.1 kg Blood Glucose* 503 97 Patient Weight 04/20/18 23:59 Weight 84.1 kg - Labs CBC & BMP: 04/20/18 07:49 04/20/18 03:05 Labs: Abnormal lab results RBC 2.68 M/mcL (3.82-4.97) L 04/20/18 03:05 Hgb 7.4 g/dL (11.5-15.4) L 04/20/18 07:49 Hct 23.0 % (35.3-44.9) L 04/20/18 07:49 Plt Count 866 K/mcL (140-400) H 04/20/18 03:05 MPV 9.3 fL (9.4-12.4) L 04/20/18 03:05 Band Neutrophils % 6.0 % (0-4) H 04/13/18 05:34 Toxic Granulation Present (Not Present) A 04/12/18 16:20 Large Platelets Present (Not Present) A 04/13/18 05:34 Immature Plt Fraction 13.2 % (1.1-6.1) H 04/10/18 03:56 Anisocytosis 1+ (Not Present) A 04/13/18 05:34 ESR 111 mm/hr (0-15) H 04/17/18 09:00 PT 13.1 Seconds (9.4-12.1) H 04/19/18 05:05 D-Dimer 5840 ng/mLFEU (0-500) H 04/10/18 11:00 Heparin Anti-Xa, Unfract 0.22 IU/mL (0.30-0.70) L 04/20/18 03:05 VBG pCO2 33 mmHg (41-51) L 04/06/18 10:45 VBG pO2 84 mmHg (25-50) H 04/06/18 10:45 Sodium 131 mEq/L (136-145) L 04/20/18 03:05 Potassium 3.4 mEq/L (3.5-5.1) L 04/20/18 03:05 Chloride 95 mEq/L (98-107) L 04/20/18 03:05 Creatinine 0.40 mg/dL (0.60-1.20) L 04/20/18 03:05 BUN/Creatinine Ratio 50 (6-26) H 04/20/18 03:05 Glucose 200 mg/dL (70-105) H 04/20/18 03:05 Hemoglobin A1c 7.8 % (-5.6) H 04/06/18 10:31 Calcium 7.8 mg/dL (8.6-10.3) L 04/20/18 03:05 Venous Ioniz Calcium 1.14 mmol/L (1.15-1.35) L 04/17/18 07:03 Iron < 10 mcg/dL (50-170) L 04/18/18 11:39 Transferrin 104 mg/dL (203-362) L 04/18/18 11:39 Alkaline Phosphatase 200 Units/L (34-104) H 04/18/18 04:10 Creatine Kinase 11 Units/L (30-223) L 04/17/18 16:55 C-Reactive Protein 166 mg/L (Less than 10) H 04/17/18 09:00 B-Natriuretic Peptide 219 pg/mL (Less than 100) H 04/15/18 20:12 Serum Total Protein 5.0 g/dL (6.4-8.9) L 04/18/18 04:10 Albumin 1.7 g/dL (3.5-5.7) L 04/18/18 04:10 Albumin/Globulin Ratio 0.5 (1.1-2.2) L 04/18/18 04:10 Vitamin B12 > 1500 pg/mL (250-1100) H 04/18/18 11:39 Folate > 22.3 ng/mL (3.0-16.0) H 04/18/18 11:39 TSH 0.248 mcIU/mL (0.340-5.600) L 04/06/18 10:31 Ur Specimen Adequacy See below A 04/06/18 11:55 Urine Protein 30 mg/dL (Neg-Trace) H 04/06/18 11:55 Urine Glucose (UA) 250 mg/dL (Normal) H 04/06/18 11:55 Urine Blood Small (Negative) H 04/06/18 11:55 Urine Microscopic RBC 5-15 per hpf (0-3) H 04/06/18 11:55 Ur Squamous Epith Cells Many per lpf (None-Few) H 04/06/18 11:55 Fluid Crystals CPPD Crystals Seen (None Seen) A 04/09/18 12:30 Synovial RBC 0.250 M/mcl (0.000-0.002) H 04/17/18 19:23 Synovial Tot Nuc Cell 4770 TNC/mcL (0-200) H 04/17/18 19:23 Vancomycin Trough 18 mcg/mL (5-10) H 04/18/18 11:39 Urine Opiates Screen Positive ng/mL (Jpclld=287) H 04/06/18 11:54 HSV I DETECTED (Not Detect) A 04/16/18 10:40 Staphylococcus sp PCR DETECTED (Not Detect) A 04/19/18 09:29 Staph aureus (PCR) DETECTED (Not Detect) A 04/19/18 09:29 mecA-Methicil Res Gene DETECTED (Not Detect) A 04/19/18 09:29 Consult Discharge Plan - Plan Referrals: Misael Lopez MD [Non-Partnered Physician] - (Patient is going to rehab no PCP appointment needed) Prescriptions: Apixaban [Eliquis] 5 mg PO BID 30 Days #60 tablet
[2018-04-20] MEDS: Sennosides/Docusate Sodium TABLET PO SCH ×2 (12:10→20:39)
[2018-04-20 15:00] LABS: Hematocrit 26.3 % (35.3-44.9); Hemoglobin 8.8 g/dL (11.5-15.4)
[2018-04-20 19:56] LABS: Hematocrit 26.3 % (35.3-44.9); Hemoglobin 8.7 g/dL (11.5-15.4)
[2018-04-20] MEDS: DAPTOmycin 500 MG in 0.9 % Sodium Chloride 100 ML IVPB SCH (20:40)
[2018-04-20] MEDS: Insulin DETEMIR 100 UNIT/ML X5UNITS SQ SCH (20:44)
[2018-04-21] MEDS: Piperacillin/Tazobactam 3.375 GM in 0.9 % Sodium Chloride Mini Bag 100 ML IVPB SCH ×3 (01:08→17:19)
[2018-04-21 04:11] LABS: Basophils % 0.4 %; Eosinophils # 0.1 K/mcL (0.0-0.6); Eosinophils % 1.2 %; Hemoglobin 8.5 g/dL (11.5-15.4); Immature Granulocytes % 0.8 % (0-4); Lymphocytes % 12.7 %; Mean Corpuscular HGB Conc 32.7 g/dL (31.6-35.5); Mean Corpuscular Hemoglobin 28.7 pg (28.0-33.3); Mean Corpuscular Volume 87.8 fL (83.0-100.0); Mean Platelet Volume 9.4 fL (9.4-12.4); Monocytes # 0.4 K/mcL (0.0-1.3); Monocytes % 5.1 %; Neutrophils # 6.2 K/mcL (1.6-8.9); Platelet Count 786 K/mcL (140-400); Red Blood Count 2.96 M/mcL (3.82-4.97); Red Cell Distribution Width 14.8 % (11.5-14.5); Segmented Neutrophils % 79.8 %
[2018-04-21 04:27] LABS: BUN/Creatinine Ratio 38 (6-26); Blood Urea Nitrogen 15 mg/dL (8-23); Calcium 7.7 mg/dL (8.6-10.3); Carbon Dioxide 31 mEq/L (23-29); Chloride 97 mEq/L (98-107); Glucose 161 mg/dL (70-105); Osmolality,Calculated 280 (280-300); Potassium 3.4 mEq/L (3.5-5.1); Sodium 133 mEq/L (136-145); eGFR For Non-African Americans > 60 (> 60)
[2018-04-21] MEDS: Insulin LISPRO 300 UNITS/3 ML VIAL SQ SCH ×4 (08:32→21:08)
--- NOTE | 2018-04-21 09:28 | Internal Med Progress Note ---
<Levar Oneil S - Last Filed: 04/21/18 11:17> Hospitalist Progress Note - Encounter Date of Encounter: 04/21/18 Time of Encounter: 09:26 - Subjective Interval History: Pt is seen at the bedside. She is hospital day 14. The pt was admitted with c/o left shoulder and right knee pain on 04/06. She had been experiencing increasing pain over the last 6mos and was unable to complete her ADLs due to the worsening joint pain. The pt family reported intermittent episodes of confusion. Ortho was consulted to see the pt and they recommended outpatient management with PTOT and sports medicine. They recommended rheumatology consult. The pt then experienced A fib with RVR and was put on IV heparin anticoagulation as per cardiology and lopressor. - currently the pt has beta blockers held 2/2 hypotension Rheumatology saw the pt on 04/10 after a rigth knee arthrocentesis was performed . 10cc yellow, purulent fluid was obtained and fluid analysis showed CPPD crystals and g(+) cocci. -ortho and rheumatology discussed the case and the pt was brought to the OR for arthroscopy on 04/1104/15/18 - Pulmonology consulted for b/l pleural effusions, pt opted to try diuresis instead of an invasive procedure. Pulm has since signed off The pt reports more discomfort in her arm, knees and shoulder. She denies CP, SOB, N/V/D. She feels fever feverish this morning and states she really doesn't feel good. Her joints all hurt this morning and she is requesting more pain meds. - Exam Vitals: Temp Pulse Resp BP Pulse Ox 99.1 F 91 18 106/57 96 04/21/18 07:26 04/21/18 07:26 04/21/18 07:26 04/21/18 07:26 04/21/18 07:26 Exam: Constitutional: Alert and oriented 3 mildly distressed secondary to pain HEENT: Normocephalic, atraumatic, moist mucus membranes Heart: Regular rhythm, no murmurs, no edema Lungs: lungs clear and equal bilaterally, no rhonchi, no wheeze Abdomen: Soft, normal bowel sounds, no rigidity Extremities: erythema of left knee, right knee wrapped in jovani bandage, left knee swollen, no shoulder pain elicited upon palpation, no calf tenderness, nonpitting edema of the left upper extremity has improved, lt hand swollen and tender to touch Skin: warm and dry, no lesions, no rashes, no jaundice Psych: thought content congruent, normal mood and normal affect Neurological: Alert and oriented x 3 - Assessment and Plan (1) Sepsis Status: Resolved Assessment and Plan: Likely secondary to septic joint Blood cx (+) for MRSA, wound cx (+) for MRSA, - repeat blood cx resulted 04/14 and was positive for g(+) cocci and 04/16 (+) for g (+) cocci - Blood cx on 04/17: (+) for g (+) cocci - Right and left knee cx both are (+) for gram positve cocci - Blood cx 04/19 (+) for MRSA - Pt currently does not meet sepsis criteria HR 85 WBC count 7.7 t max overnight 100.9 - 04/11/18 underwent right knee arthroscopy irrigation debridement - medial and lateral menisci were evaluated. No tear of the medial or lateral meniscus was identified. - ACL and PCL w/o pathology. - right knee arthrocentesis was performed on 04/09 --- 10cc yellow, purulent fluid was obtained and fluid analysis showed CPPD crystals and g(+) cocci. - 04/18: ortho performed left knee arthroscopy irrigation and debridement, right knee aspiration - ESR on 04/15 was 85, increased to 111 on 04/17 Plan: - Vancomycin day 12, zosyn day 7 - - daptomycin day 4 -ID following As per ID, will most likely need 4-6 wks of abx tx Plan for midline or PICC placement when closer to discharge Recommends IDALIA prior to d/c - Ortho following Soft mechanical diet currently Synovial fluid from right knee pending results - CRP pending (2) Shoulder subluxation, left Status: Acute Assessment and Plan: Shoulder XR on 04/07 - Severe left glenohumeral joint osteoarthritic degenerative changes with large marginal osteophytes, subchondral changes and bony remottling. - Calcification, no acute fx or dislocation Plan: - PTOT as toleration - pain control with oxcodone - ice as needed (3) Arthritis of right knee Status: Acute Assessment and Plan: Pt has hx of severe OA, fam hx of rheumatoid arthritis Plan: - right knee arthroscopy irrigation and debridement with Dr. Fournier 8 days ago - joint aspiration cultures positive for gram-positive cocci, repeat blood cx sh owed g(+) cocci - vancomycin day 12 - zosyn day 7 - daptomycin day 5 - joint was aspirated yesterday, synovial fluid report pending (4) Type 1 diabetes Status: Acute Assessment and Plan: Glucose this morning 161 -continue determir, increased to 20U -continue sliding scale as per protocol (5) Hyponatremia Status: Acute Assessment and Plan: Sodium this morning 133 Plan: - discontinue 75cc/hr 0.9% NS - lisinopril and HCTZ held - check BMP in the morning (6) Abnormal TSH Status: Acute Assessment and Plan: TSH 0.248 -FT4 1.25, FT3 3.11 -likely subclinical hypothyroidism -follow up outpatient (7) DVT prophylaxis Status: Acute Assessment and Plan: heparin drip held (8) Calcium pyrophosphate arthropathy Status: Acute Assessment and Plan: 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 - likely source of pt arthralgias, although it appears that pt has a multifactorial disease process - Rh factor <10 -CCP WNL Plan: - ortho consulted appreciate recommendations - continue abx as per plan above - rheumatology signed off, recommends outpt follow up (9) Atrial fibrillation with RVR Status: Resolved Assessment and Plan: New onset A fib RVR -cardiology consulted and signed off -Troponin <0.03 x 2 -ECHO on 04/10 showed LVEF 65-70%, normal LV systolic and diastolic fxn, no significant valvular dysfxn Currently in sinus rhythm, HR 83 -CHADVASc of 4 Plan: - amiodarone drip d/c as per cardiology - Lopressor 25mg PO adal as per cardiology - on Heparin drip as per protocol, pt had run of A fib RVR 04/13 as per nursing staff - on telemetry (10) Bacteremia Status: Acute Assessment and Plan: Blood cultures positive for MRSA - see plan as above for sepsis (11) Hypokalemia Status: Acute Assessment and Plan: Potassium 3.4 today. Plan: - Replaced with oral supplement yesterday - continue to monitor electrolytes (12) Anemia Status: Acute Assessment and Plan: May be 2/2 to sepsis, heme onc feels unlikely due to GIB Hemoglobin trending down. -admission hemoglobin 11.3 ---> 10.9 ---> 8.6 ---> 8.5 ----> 04/14/18 hemoglobin 7.3 -currently on heparin drip - pt was given 1 unit of RBC 04/14, hgb improved to 9, was 9.5 on 04/16 - 04/17 - hemoglobin 8.3, 04/18 - 8.0 - 04/19: hemoglobin 8.0 - 04/20: Hgb 7.4 - 04/21: Hgb 8.5 Iron profile Fe <10, transferrin 104 Plan: - FOBT pending - continue to monitor cbc - check H&H 10am - heme onc consulted, appreciate recommendations (13) Deep venous thrombosis of left upper extremity Status: Acute Assessment and Plan: Pt has been reporting LUE pain -US ordered 04/14 revealed DVT in the left brachial and radial veins of the LUE Hemoglobin has continued to drop. Today is 8.0, yesterday was 9.3. 04/19: hemoglobin 8.0 04/20: hemoglobin 7.4 Plan: - heparin drip was held - consult heme onc Recommended restarting heparin drip, currently held 2/2 decreaseing hemoglobin - H&H pending - will speak to pharmacy about transitioning to eliquis and continuing anticoagulation after discharge (14) Pneumonia Status: Suspected Assessment and Plan: Pt has been having temperature spikes, overnight t max was 100.5 - WBC 04/18: 11.5 - CXR on 04/14/18 showed bilateral effusions with bibasilar airspace disease - CT scan of chest showed Mod/large right pleural effusion, mod left pleural effusion w/ adjacent atelectasis or pneumonia at the bases Pulmonary vascular congestion - Blood cx showed g(+) cocci Plan: - continue vancomycin day 12, Zosyn day 7 - ID following - pt is getting Lasix 20mg IVP BID for pulmonary vascular congestion; will not perform thoracentesis as per pulmonology unless breathing status deteroirates Pulmonology signed off - follow cbc/cmp (15) Acute respiratory failure Status: Resolved Assessment and Plan: See plan as above for pneumonia. - 98% on RA (16) Thrombocytosis Status: Acute Assessment and Plan: Plt count 786 - 04/20: 866 - 04/19: 755 today. 04/18: 662 - maybe reactive 2/2 sx - Time Spent with Patient Total time spent is greater than 50% in coordination of care (as documented) at patient's floor/unit and/or counseling patient: less than 15 minutes Plan of Care Discussed with: patient Internal Medicine: Result - Labs CBC & Chem 7: 04/21/18 09:50 04/21/18 03:30 Labs: Short CBC 04/20/18 04/20/18 04/21/18 Range/Units 14:46 19:36 03:30 WBC 7.7 (4.3-11.1) K/mcL Hgb 8.8 L 8.7 L 8.5 L (11.5-15.4) g/dL Hct 26.3 L 26.3 L 26.0 L (35.3-44.9) % Plt Count 786 H (140-400) K/mcL Neutrophils # 6.2 (1.6-8.9) K/mcL BMP 04/21/18 03:30 Sodium 133 L Potassium 3.4 L Chloride 97 L Carbon Dioxide 31 H BUN 15 Creatinine 0.40 L Glucose 161 H Calcium 7.7 L - ABG Interpretation ABG results: PT/INR, D-dimer PT 13.1 Seconds (9.4-12.1) H 04/19/18 05:05 D-Dimer 5840 ng/mLFEU (0-500) H 04/10/18 11:00 Consult Discharge Plan - Plan Referrals: Misael Lopez MD [Non-Partnered Physician] - (Patient is going to rehab no PCP appointment needed) <Joseph Arciniega - Last Filed: 04/23/18 12:53> Hospitalist Progress Note - Exam Vitals: Temp Pulse Resp BP Pulse Ox 99.1 F 88 17 105/56 100 04/22/18 18:49 04/22/18 18:49 04/22/18 18:49 04/22/18 18:49 04/22/18 18:49 - Assessment and Plan (1) Shoulder subluxation, left Status: Acute (2) Arthritis of right knee Status: Acute (3) Type 1 diabetes Status: Deleted (4) Hyponatremia Status: Deleted (5) Abnormal TSH Status: Deleted (6) DVT prophylaxis Status: Acute (7) Calcium pyrophosphate arthropathy Status: Deleted (8) Atrial fibrillation with RVR Status: Resolved (9) Sepsis Status: Resolved (10) Bacteremia Status: Acute (11) Hypokalemia Status: Deleted (12) Anemia Status: Acute (13) Deep venous thrombosis of left upper extremity Status: Acute (14) Pneumonia Status: Suspected (15) Acute respiratory failure Status: Resolved (16) Thrombocytosis Status: Acute - Time Spent with Patient Total time spent is greater than 50% in coordination of care (as documented) at patient's floor/unit and/or counseling patient: Internal Medicine: Result - Labs CBC & Chem 7: 04/22/18 04:41 04/22/18 04:41 - ABG Interpretation ABG results: PT/INR, D-dimer PT 13.1 Seconds (9.4-12.1) H 04/19/18 05:05 D-Dimer 5840 ng/mLFEU (0-500) H 04/10/18 11:00 - Attending Attestation I examined this patient and my medical decision-making was reviewed with the Resident Physician. I agree with the documented findings, disposition and treatment plan as described except to the extent set forth below. <Levar Oneil - Last Filed: 04/21/18 11:17> (1) Sepsis Qualifiers: Sepsis type: sepsis due to unspecified organism Qualified Code(s): A41.9 - Sepsis, unspecified organism (2) Shoulder subluxation, left Qualifiers: Encounter type: initial encounter Qualified Code(s): S43.002A - Unspecified subluxation of left shoulder joint, initial encounter (4) Type 1 diabetes Qualifiers: Diabetes mellitus complication status: with unspecified complications Qualified Code(s): E10.8 - Type 1 diabetes mellitus with unspecified complications (12) Anemia Qualifiers: Anemia type: unspecified type Qualified Code(s): D64.9 - Anemia, unspecified (13) Deep venous thrombosis of left upper extremity Qualifiers: Affected thrombotic vein of extremity: brachial Chronicity: acute Qualified Code(s): I82.622 - Acute embolism and thrombosis of deep veins of left upper extremity (14) Pneumonia Qualifiers: Pneumonia type: due to unspecified organism Laterality: bilateral Lung loc ation: unspecified part of lung Qualified Code(s): J18.9 - Pneumonia, unspecified organism (15) Acute respiratory failure Qualifiers: Respiratory failure complication: hypoxia Qualified Code(s): J96.01 - Acute respiratory failure with hypoxia <Joseph Arciniega - Last Filed: 04/23/18 12:53> (1) Shoulder subluxation, left Qualifiers: Encounter type: initial encounter Qualified Code(s): S43.002A - Unspecified subluxation of left shoulder joint, initial encounter (3) Type 1 diabetes Qualifiers: Diabetes mellitus complication status: with unspecified complications Qualified Code(s): E10.8 - Type 1 diabetes mellitus with unspecified complications (9) Sepsis Qualifiers: Sepsis type: sepsis due to unspecified organism Qualified Code(s): A41.9 - Sepsis, unspecified organism (12) Anemia Qualifiers: Anemia type: unspecified type Qualified Code(s): D64.9 - Anemia, unspecified (13) Deep venous thrombosis of left upper extremity Qualifiers: Affected thrombotic vein of extremity: brachial Chronicity: acute Qualified Code(s): I82.622 - Acute embolism and thrombosis of deep veins of left upper extremity (14) Pneumonia Qualifiers: Pneumonia type: due to unspecified organism Laterality: bilateral Lung locat ion: unspecified part of lung Qualified Code(s): J18.9 - Pneumonia, unspecified organism (15) Acute respiratory failure Qualifiers: Respiratory failure complication: hypoxia Qualified Code(s): J96.01 - Acute respiratory failure with hypoxia
--- NOTE | 2018-04-21 09:29 | Infectious Disease Progress No ---
Date of Encounter: 04/21/18 Time of Encounter: 09:27 - Assessment and Plan (1) Sepsis Current Visit: Yes Status: Resolved The patient had 2 sepsis criteria plus altered mental status. Likely secondary to bacteremia and right knee septic arthritis. Improved. WBC normalized Tachycardia resolved. Tmax 100.9 in the past 24 hours. Blood cultures drawn 04/10/18 are +2 out of 2 sets for MRSA. Repeat blood cultures drawn 04/13/18 are positive 2/2 sets. Additional blood cultures drawn 04/14/18 are positive 2/2 sets. Repeat blood cultures drawn 04/16/18 are positive 2/2 sets. Repeat blood cultures drawn 04/19/18 are positive 1/2 sets. Qualifiers: Sepsis type: sepsis due to unspecified organism Qualified Code(s): A41.9 - Sepsis, unspecified organism (2) Bacteremia Current Visit: Yes Status: Acute Causative organism: MRSA. Source: Right knee septic arthritis. Concern for additional source given the patient's persistent joint pain and persistently positive blood cultures. Blood cultures drawn 04/10/18 are +2 out of 2 sets. Repeat blood cultures drawn 04/13/18 are positive 2/2 sets. Additional cultures drawn 04/14/18 are positive 2/2 sets. Repeat blood cultures drawn 04/16/18 are positive 2/2 sets. Repeat blood cultures drawn 04/19/18 are positive 1/2 sets. Complicated due to the presence of septic arthritis of the bilateral knees and persistent bacteremia. The patient has no indwelling hardware or pacemaker. The patient has one major and one minor Modified Eaton criteria. She does not have any endocarditis stigmata noted on exam. Transthoracic echocardiogram negative for vegetations. Get IDALIA prior to discharge. Check rheumatoid factor.--> <10. Repeat blood cultures x 2 sets in the AM. Continue vancomycin IV. Pharmacy to dose. Goal trough proximally 15. Vanc trough 04/20/18 18. Continue Daptomycin 8mg/kg IV daily. (day 5) Check baseline CK level. --> 11. Duration of treatment depends on the clinical picture, but likely 4-6 weeks. Monitor renal function for drug toxicity and dose adjust antibiotics. Continue contact precautions per hospital policy. Avoid insertion of long-term IV access until repeat blood cultures are negative x 48 hours. Further OPAT recommendations to follow pending clinical and culture outcomes. (3) Septic arthritis of knee, left Current Visit: Yes Status: Acute Location: LEft knee Causative organism: MRSA Status post bedside arthrocentesis that revealed cloudy purulent fluid. Cell count TNC 4400 with 76% neutrophils. Cultures positive for MRSA. Orthopedics consulted. Status post arthroscopic I & D 04/18/[address] Fournier. Operative note reviewed. Cultures as above. Continue antibiotics as stated above. Duration of treatment and clinical picture, but likely 4 weeks of IV antibiotics. Monitor renal function for drug toxicity and does just antibiotics. Wound care and activity restrictions per the ortho team. Qualifiers: Septic arthritis organism: staphylococcal Qualified Code(s): M00.062 - Staphylococcal arthritis, left knee (4) Septic arthritis of knee, right Current Visit: Yes Status: Acute Location: Right knee. Causative organism: MRSA MRI of the right knee showed a moderate joint effusion. The sterility of joint fluid was indeterminate on imaging and an infectious process could not be excluded. Rheumatology consult and following. Status post bedside arthrocentesis that revealed cloudy purulent fluid. Cell count with differential could not be performed due to the viscosity of the specimen. Orthopedics consulted. Status post arthroscopic I & D 04/11/[address] Fournier. Operative note reviewed. Pus noted intra-op. Cultures as above. Continue antibiotics as stated above. Duration of treatment and clinical picture, but likely 4 weeks of IV antibiotics. Monitor renal function for drug toxicity and does just antibiotics. Wound care and activity restrictions per the ortho team. Qualifiers: Septic arthritis organism: staphylococcal Qualified Code(s): M00.061 - Staphylococcal arthritis, right knee (5) Pleural effusion Current Visit: Yes Status: Acute Location: Bilateral. CT of the chest showed moderate to large right and moderate left pleural effusion with adjacent atelectasis and/or pneumonia notable at lung bases. Etiology unclear: reactive vs. infectious vs. other. Pulmonology consulted. Appreciate recommendations. Continue antibiotics as above. Repeat CXR in the AM. (6) Pneumonia Current Visit: Yes Status: Suspected Location: Bilateral bases. Causative organism: Unclear. CXR showed bilateral pleural effusions with bibasilar airspace disease, likely PNA. CT of the chest showed moderte to large right pleural effusion and moderate left pleural effusion with adjacent atelectasis and/or pneumonia notable at lung bases. Recommend pulmonary to evaluate. Check RIP.--> negative. Check S. pneumo and Legionella UATs.--> negative. Repeat CXR in the AM. Continue Zosyn 3.375 grams IV Q8H. (day 7) Continue Vancomycin IV. Pharmacy to dose. Goal trough ~15. Duration of treatment depends on the clinical picture. Monitor renal function and for drug toxicity and dose-adjust antibiotics. Qualifiers: Pneumonia type: due to unspecified organism Laterality: bilateral Lung location: unspecified part of lung Qualified Code(s): J18.9 - Pneumonia, unspecified organism (7) Altered mental status Current Visit: Yes Status: Resolved Likely secondary to sepsis. Improved. Continue to monitor closely. Qualifiers: Altered mental status type: unspecified Qualified Code(s): R41.82 - Altered mental status, unspecified (8) Shoulder subluxation, left Current Visit: Yes Status: Acute Noted on imaging. IR consulted and aspiration of the joint unsuccessful. Patient reports pain is improved. Orthopedics consulted. 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 Plan to follow up as outpatient. (11) Atrial fibrillation with RVR Current Visit: Yes Status: Resolved Liquids secondary to sepsis. Cardiology consulted and signed off. Rate controlled. (12) Oral lesion Current Visit: Yes Status: Acute Clinically, does not appear to be thrush. HSV PCR positive. Treated with Valacyclovir 2 grams PO Q12H x 1 day. Continue magic mouthwash with lidocaine. (13) Joint pain Current Visit: Yes Status: Acute Location: bilateral knees. Likely secondary to septic arthritis. Recommendations as above. Qualifiers: Joint pain location: knee Laterality: left Qualified Code(s): M25.562 - Pain in left knee (14) Thrombocytosis Current Visit: Yes Status: Acute Etiology unclear: sepsis vs. other. Hem/Onc consulted and following. - Subjective Interval history: Patient seen and examined with family at the bedside. Weekend notes reviewed. No acute events noted overnight. POD #10 for right knee washout. POD #3 for left knee washout. Patient states overall she feels a little better today. She reports pain in the bilateral LE and lower back/butt. Shortness of breath has improved. Denies chest pain or cough. She denies nausea, vomiting, or diarrhea. Denies abdominal pain. Appetite is okay. Donohue catheter remains patent. Denies new skin rashes. Oral lesions improved. Infect Dis PN-Objective Data - Labs CBC & Chem 7: 04/21/18 09:50 04/21/18 03:30 Labs: Laboratory Results - last 24 hr 04/19/18 04/19/18 04/19/18 07:37 09:29 11:57 WBC RBC Hgb Hct MCV MCH MCHC RDW Plt Count MPV Immature Gran % Seg Neutrophils % Lymphocytes % Monocytes % Eosinophils % Basophils % Neutrophils # Lymphocytes # Monocytes # Eosinophils # Basophils # Sodium Potassium Chloride Carbon Dioxide BUN Creatinine Est GFR ( Amer) Est GFR (Non-Af Amer) BUN/Creatinine Ratio Glucose POC Glucose 203 H 287 H Calculated Osmolality Calcium Vancomycin Trough A. baumannii (PCR) Not Detected Kirti albicans (PCR) Not Detected C. glabrata (PCR) Not Detected C. krusei (PCR) Not Detected C. parapsilosis (PCR) Not Detected C. tropicalis (PCR) Not Detected Enterobacteriac sp PCR Not Detected E. cloacae complex PCR Not Detected Enterococcus sp PCR Not Detected E. coli (PCR) Not Detected H. influenzae (PCR) Not Detected Klebsiella oxytoca PCR Not Detected Klebsiella pneumoniae Not Detected List. monocytogenes PCR Not Detected N. meningitidis (PCR) Not Detected Proteus species (PCR) Not Detected Serratia marcescens PCR Not Detected Staphylococcus sp PCR DETECTED A Staph aureus (PCR) DETECTED A mecA-Methicil Res Gene DETECTED A Streptococcus sp PCR Not Detected Group A Strep DNA Not Detected Group B Strep (PCR) Not Detected Strep pneumoniae (PCR) Not Detected P. aeruginosa (PCR) Not Detected Ivory/B-Vanco Res Genes Not Detected KPC (blaKPC) Detect PCR Not Detected Crossmatch 04/19/18 04/20/18 04/20/18 15:51 07:48 11:28 WBC RBC Hgb Hct MCV MCH MCHC RDW Plt Count MPV Immature Gran % Seg Neutrophils % Lymphocytes % Monocytes % Eosinophils % Basophils % Neutrophils # Lymphocytes # Monocytes # Eosinophils # Basophils # Sodium Potassium Chloride Carbon Dioxide BUN Creatinine Est GFR ( Amer) Est GFR (Non-Af Amer) BUN/Creatinine Ratio Glucose POC Glucose 286 H 89 Calculated Osmolality Calcium Vancomycin Trough A. baumannii (PCR) Kirti albicans (PCR) C. glabrata (PCR) C. krusei (PCR) C. parapsilosis (PCR) C. tropicalis (PCR) Enterobacteriac sp PCR E. cloacae complex PCR Enterococcus sp PCR E. coli (PCR) H. influenzae (PCR) Klebsiella oxytoca PCR Klebsiella pneumoniae List. monocytogenes PCR N. meningitidis (PCR) Proteus species (PCR) Serratia marcescens PCR Staphylococcus sp PCR Staph aureus (PCR) mecA-Methicil Res Gene Streptococcus sp PCR Group A Strep DNA Group B Strep (PCR) Strep pneumoniae (PCR) P. aeruginosa (PCR) Ivory/B-Vanco Res Genes KPC (blaKPC) Detect PCR Crossmatch See Detail 04/20/18 04/20/18 04/20/18 12:15 14:46 16:01 WBC RBC Hgb 8.8 L Hct 26.3 L MCV MCH MCHC RDW Plt Count MPV Immature Gran % Seg Neutrophils % Lymphocytes % Monocytes % Eosinophils % Basophils % Neutrophils # Lymphocytes # Monocytes # Eosinophils # Basophils # Sodium Potassium Chloride Carbon Dioxide BUN Creatinine Est GFR ( Amer) Est GFR (Non-Af Amer) BUN/Creatinine Ratio Glucose POC Glucose 187 H Calculated Osmolality Calcium Vancomycin Trough 18 H A. baumannii (PCR) Kirti albicans (PCR) C. glabrata (PCR) C. krusei (PCR) C. parapsilosis (PCR) C. tropicalis (PCR) Enterobacteriac sp PCR E. cloacae complex PCR Enterococcus sp PCR E. coli (PCR) H. influenzae (PCR) Klebsiella oxytoca PCR Klebsiella pneumoniae List. monocytogenes PCR N. meningitidis (PCR) Proteus species (PCR) Serratia marcescens PCR Staphylococcus sp PCR Staph aureus (PCR) mecA-Methicil Res Gene Streptococcus sp PCR Group A Strep DNA Group B Strep (PCR) Strep pneumoniae (PCR) P. aeruginosa (PCR) Ivory/B-Vanco Res Genes KPC (blaKPC) Detect PCR Crossmatch 04/20/18 04/20/18 04/21/18 19:36 20:19 03:30 WBC 7.7 RBC 2.96 L Hgb 8.7 L 8.5 L Hct 26.3 L 26.0 L MCV 87.8 MCH 28.7 MCHC 32.7 RDW 14.8 H Plt Count 786 H MPV 9.4 Immature Gran % 0.8 Seg Neutrophils % 79.8 Lymphocytes % 12.7 Monocytes % 5.1 Eosinophils % 1.2 Basophils % 0.4 Neutrophils # 6.2 Lymphocytes # 1.0 Monocytes # 0.4 Eosinophils # 0.1 Basophils # 0.0 Sodium Potassium Chloride Carbon Dioxide BUN Creatinine Est GFR ( Amer) Est GFR (Non-Af Amer) BUN/Creatinine Ratio Glucose POC Glucose 315 H Calculated Osmolality Calcium Vancomycin Trough A. baumannii (PCR) Kirti albicans (PCR) C. glabrata (PCR) C. krusei (PCR) C. parapsilosis (PCR) C. tropicalis (PCR) Enterobacteriac sp PCR E. cloacae complex PCR Enterococcus sp PCR E. coli (PCR) H. influenzae (PCR) Klebsiella oxytoca PCR Klebsiella pneumoniae List. monocytogenes PCR N. meningitidis (PCR) Proteus species (PCR) Serratia marcescens PCR Staphylococcus sp PCR Staph aureus (PCR) mecA-Methicil Res Gene Streptococcus sp PCR Group A Strep DNA Group B Strep (PCR) Strep pneumoniae (PCR) P. aeruginosa (PCR) Ivory/B-Vanco Res Genes KPC (blaKPC) Detect PCR Crossmatch 04/21/18 04/21/18 03:30 07:22 WBC RBC Hgb Hct MCV MCH MCHC RDW Plt Count MPV Immature Gran % Seg Neutrophils % Lymphocytes % Monocytes % Eosinophils % Basophils % Neutrophils # Lymphocytes # Monocytes # Eosinophils # Basophils # Sodium 133 L Potassium 3.4 L Chloride 97 L Carbon Dioxide 31 H BUN 15 Creatinine 0.40 L Est GFR ( Amer) > 60 Est GFR (Non-Af Amer) > 60 BUN/Creatinine Ratio 38 H Glucose 161 H POC Glucose 85 Calculated Osmolality 280 Calcium 7.7 L Vancomycin Trough A. baumannii (PCR) Kirti albicans (PCR) C. glabrata (PCR) C. krusei (PCR) C. parapsilosis (PCR) C. tropicalis (PCR) Enterobacteriac sp PCR E. cloacae complex PCR Enterococcus sp PCR E. coli (PCR) H. influenzae (PCR) Klebsiella oxytoca PCR Klebsiella pneumoniae List. monocytogenes PCR N. meningitidis (PCR) Proteus species (PCR) Serratia marcescens PCR Staphylococcus sp PCR Staph aureus (PCR) mecA-Methicil Res Gene Streptococcus sp PCR Group A Strep DNA Group B Strep (PCR) Strep pneumoniae (PCR) P. aeruginosa (PCR) Ivory/B-Vanco Res Genes KPC (blaKPC) Detect PCR Crossmatch Cultures: Cultures 04/19/18 09:29 Blood Culture - Final Peripheral Venipuncture Methicillin Resistant S.aureus 04/17/18 19:23 Body Fluid Culture - Final Synovial Fluid Methicillin Resistant S.aureus 04/18/18 20:31 Wound Culture - Preliminary Right Knee Gram Positive Cocci 04/18/18 20:31 Wound Culture - Preliminary Left Knee Gram Positive Cocci 04/19/18 09:29 Blood Culture - Preliminary Peripheral Venipuncture Culture is incubating and being continuously monitored for growth. Final report to follow. 04/13/18 05:34 Blood Culture - Final Peripheral Venipuncture Methicillin Resistant S.aureus 04/16/18 01:28 Blood Culture - Final Peripheral Venipuncture Methicillin Resistant S.aureus 04/16/18 01:28 Blood Culture - Final Peripheral Venipuncture Methicillin Resistant S.aureus 04/11/18 18:25 Anaerobic Culture - Final Right Knee No anaerobes were recovered. 04/14/18 04:20 Blood Culture - Final Peripheral Venipuncture Methicillin Resistant S.aureus 04/14/18 04:20 Blood Culture - Final Peripheral Venipuncture Methicillin Resistant S.aureus 04/15/18 16:15 Legionella Antigen - Final Urine,Clean Catch Streptococcus pneumoniae Antigen (M - Final 04/13/18 05:46 Blood Culture - Final Peripheral Venipuncture Methicillin Resistant S.aureus 04/11/18 18:25 Wound Culture - Final Right Knee Methicillin Resistant S.aureus 04/10/18 11:00 Blood Culture - Final Peripheral Venipuncture Methicillin Resistant S.aureus 04/10/18 11:10 Blood Culture - Final Peripheral Venipuncture Methicillin Resistant S.aureus 04/09/18 12:30 Body Fluid Culture - Final Synovial Fluid Methicillin Resistant S.aureus Serology 04/19/18 04/17/18 04/16/18 Range/Units 09:29 19:23 10:40 Ur Specimen Adequacy Urine Color (Yellow) Urine Clarity (Clear) Urine pH (5.0-8.0) pH Units Ur Specific [place] (1.010-1.025) Urine Protein (Neg-Trace) mg/dL Urine Glucose (UA) (Normal) mg/dL Urine Ketones (Negative) mg/dL Urine Blood (Negative) Urine Nitrite (Negative) Urine Bilirubin (Negative) Urine Urobilinogen (Normal) mg/dL Ur Leukocyte Esterase (Negative) Urine Microscopic RBC (0-3) per hpf Urine Microscopic WBC (0-3) per hpf Ur Squamous Epith Cells (None-Few) per lpf Urine Bacteria (None-Few) per hpf Hyaline Casts Ur Culture Indicated? (NO) Urine Osmolality (300-1090) mOsm/kg Urine Sodium mEq/L Fluid Crystals (None Seen) Synovial Source left knee Synovial Color Julianne (Straw) Synovial Appearance Hazy (Clear-Hazy) Synovial Volume Test Not Performed mL Synovial RBC 0.250 H Synovial Tot Nuc Cell 4770 H Synovial Band Neuts Test Not Performed Synovial Basophils Test Not Performed Synovial Eosinophils Test Not Performed Synovial Seg Neuts % 76.0 % Synovial Lymphocytes % 22.0 % Synovial Monocytes % Test Not Performed % Synovial Other Cells % 2.0 Synovial Crystals No Crystals Seen (None Seen) A. baumannii (PCR) Not Detected (Not Detect) Chlamy pneumoniae PCR (Not Detect) Adenovirus (PCR) (Not Detect) B. pertussis DNA (PCR) (Not Detect) B.parapertussis DNA PCR (Not Detect) Kirti albicans (PCR) Not Detected (Not Detect) C. glabrata (PCR) Not Detected (Not Detect) C. krusei (PCR) Not Detected (Not Detect) C. parapsilosis (PCR) Not Detected (Not Detect) C. tropicalis (PCR) Not Detected (Not Detect) Coronavirus OC43 (PCR) (Not Detect) Coronavirus HKU1 (PCR) (Not Detect) Coronavirus 229E (PCR) (Not Detect) Coronavirus NL63 (PCR) (Not Detect) Enterobacteriac sp PCR Not Detected (Not Detect) E. cloacae complex PCR Not Detected (Not Detect) Enterococcus sp PCR Not Detected (Not Detect) E. coli (PCR) Not Detected (Not Detect) H. influenzae (PCR) Not Detected (Not Detect) Herpes Simplex Source [place] HSV I DETECTED A (Not Detect) HSV II Not Detected (Not Detect) Human Metapneumovir PCR (Not Detect) Influenza A (H1) PCR (Not Detect) Influ A (H1N1/09) PCR (Not Detect) Influenza A (H3) PCR (Not Detect) Influenza A Untype (PCR) (Not Detect) Influenza Type B (PCR) (Not Detect) Klebsiella oxytoca PCR Not Detected (Not Detect) Klebsiella pneumoniae Not Detected (Not Detect) List. monocytogenes PCR Not Detected (Not Detect) M.pneumoniae DNA (PCR) (Not Detect) N. meningitidis (PCR) Not Detected (Not Detect) Parainfluenza 1 (PCR) (Not Detect) Parainfluenza 2 (PCR) (Not Detect) Parainfluenza 3 (PCR) (Not Detect) Parainfluenza 4 (PCR) (Not Detect) Proteus species (PCR) Not Detected (Not Detect) RSV (PCR) (Not Detect) Entero/Rhino (PCR) (Not Detect) Serratia marcescens PCR Not Detected (Not Detect) Staphylococcus sp PCR DETECTED A (Not Detect) Staph aureus (PCR) DETECTED A (Not Detect) mecA-Methicil Res Gene DETECTED A (Not Detect) Streptococcus sp PCR Not Detected (Not Detect) Group A Strep DNA Not Detected (Not Detect) Group B Strep (PCR) Not Detected (Not Detect) Strep pneumoniae (PCR) Not Detected (Not Detect) P. aeruginosa (PCR) Not Detected (Not Detect) Ivory/B-Vanco Res Genes Not Detected (Not Detect) KPC (blaKPC) Detect PCR Not Detected (Not Detect) 04/16/18 04/15/18 04/13/18 Range/Units 01:28 16:12 05:46 Ur Specimen Adequacy Urine Color (Yellow) Urine Clarity (Clear) Urine pH (5.0-8.0) pH Units Ur Specific [place] (1.010-1.025) Urine Protein (Neg-Trace) mg/dL Urine Glucose (UA) (Normal) mg/dL Urine Ketones (Negative) mg/dL Urine Blood (Negative) Urine Nitrite (Negative) Urine Bilirubin (Negative) Urine Urobilinogen (Normal) mg/dL Ur Leukocyte Esterase (Negative) Urine Microscopic RBC (0-3) per hpf Urine Microscopic WBC (0-3) per hpf Ur Squamous Epith Cells (None-Few) per lpf Urine Bacteria (None-Few) per hpf Hyaline Casts Ur Culture Indicated? (NO) Urine Osmolality (300-1090) mOsm/kg Urine Sodium mEq/L Fluid Crystals (None Seen) Synovial Source Synovial Color (Straw) Synovial Appearance (Clear-Hazy) Synovial Volume mL Synovial RBC Synovial Tot Nuc Cell Synovial Band Neuts Synovial Basophils Synovial Eosinophils Synovial Seg Neuts % % Synovial Lymphocytes % % Synovial Monocytes % % Synovial Other Cells % Synovial Crystals (None Seen) A. baumannii (PCR) Not Detected Not Detected (Not Detect) Chlamy pneumoniae PCR Not Detected (Not Detect) Adenovirus (PCR) Not Detected (Not Detect) B. pertussis DNA (PCR) Not Detected (Not Detect) B.parapertussis DNA PCR Not Detected (Not Detect) Kirti albicans (PCR) Not Detected Not Detected (Not Detect) C. glabrata (PCR) Not Detected Not Detected (Not Detect) C. krusei (PCR) Not Detected Not Detected (Not Detect) C. parapsilosis (PCR) Not Detected Not Detected (Not Detect) C. tropicalis (PCR) Not Detected Not Detected (Not Detect) Coronavirus OC43 (PCR) Not Detected (Not Detect) Coronavirus HKU1 (PCR) Not Detected (Not Detect) Coronavirus 229E (PCR) Not Detected (Not Detect) Coronavirus NL63 (PCR) Not Detected (Not Detect) Enterobacteriac sp PCR Not Detected Not Detected (Not Detect) E. cloacae complex PCR Not Detected Not Detected (Not Detect) Enterococcus sp PCR Not Detected Not Detected (Not Detect) E. coli (PCR) Not Detected Not Detected (Not Detect) H. influenzae (PCR) Not Detected Not Detected (Not Detect) Herpes Simplex Source HSV I (Not Detect) HSV II (Not Detect) Human Metapneumovir PCR Not Detected (Not Detect) Influenza A (H1) PCR Not Detected (Not Detect) Influ A (H1N1/09) PCR Not Detected (Not Detect) Influenza A (H3) PCR Not Detected (Not Detect) Influenza A Untype (PCR) Not Detected (Not Detect) Influenza Type B (PCR) Not Detected (Not Detect) Klebsiella oxytoca PCR Not Detected Not Detected (Not Detect) Klebsiella pneumoniae Not Detected Not Detected (Not Detect) List. monocytogenes PCR Not Detected Not Detected (Not Detect) M.pneumoniae DNA (PCR) Not Detected (Not Detect) N. meningitidis (PCR) Not Detected Not Detected (Not Detect) Parainfluenza 1 (PCR) Not Detected (Not Detect) Parainfluenza 2 (PCR) Not Detected (Not Detect) Parainfluenza 3 (PCR) Not Detected (Not Detect) Parainfluenza 4 (PCR) Not Detected (Not Detect) Proteus species (PCR) Not Detected Not Detected (Not Detect) RSV (PCR) Not Detected (Not Detect) Entero/Rhino (PCR) Not Detected (Not Detect) Serratia marcescens PCR Not Detected Not Detected (Not Detect) Staphylococcus sp PCR DETECTED A DETECTED A (Not Detect) Staph aureus (PCR) DETECTED A DETECTED A (Not Detect) mecA-Methicil Res Gene DETECTED A DETECTED A (Not Detect) Streptococcus sp PCR Not Detected Not Detected (Not Detect) Group A Strep DNA Not Detected Not Detected (Not Detect) Group B Strep (PCR) Not Detected Not Detected (Not Detect) Strep pneumoniae (PCR) Not Detected Not Detected (Not Detect) P. aeruginosa (PCR) Not Detected Not Detected (Not Detect) Ivory/B-Vanco Res Genes Not Detected N/A (Not Detect) KPC (blaKPC) Detect PCR Not Detected N/A (Not Detect) 04/10/18 04/10/18 04/10/18 Range/Units 16:41 16:41 11:10 Ur Specimen Adequacy Urine Color (Yellow) Urine Clarity (Clear) Urine pH (5.0-8.0) pH Units Ur Specific [place] (1.010-1.025) Urine Protein (Neg-Trace) mg/dL Urine Glucose (UA) (Normal) mg/dL Urine Ketones (Negative) mg/dL Urine Blood (Negative) Urine Nitrite (Negative) Urine Bilirubin (Negative) Urine Urobilinogen (Normal) mg/dL Ur Leukocyte Esterase (Negative) Urine Microscopic RBC (0-3) per hpf Urine Microscopic WBC (0-3) per hpf Ur Squamous Epith Cells (None-Few) per lpf Urine Bacteria (None-Few) per hpf Hyaline Casts Ur Culture Indicated? (NO) Urine Osmolality 407 (300-1090) mOsm/kg Urine Sodium 21.3 mEq/L Fluid Crystals (None Seen) Synovial Source Synovial Color (Straw) Synovial Appearance (Clear-Hazy) Synovial Volume mL Synovial RBC Synovial Tot Nuc Cell Synovial Band Neuts Synovial Basophils Synovial Eosinophils Synovial Seg Neuts % % Synovial Lymphocytes % % Synovial Monocytes % % Synovial Other Cells % Synovial Crystals (None Seen) A. baumannii (PCR) Not Detected (Not Detect) Chlamy pneumoniae PCR (Not Detect) Adenovirus (PCR) (Not Detect) B. pertussis DNA (PCR) (Not Detect) B.parapertussis DNA PCR (Not Detect) Kirti albicans (PCR) Not Detected (Not Detect) C. glabrata (PCR) Not Detected (Not Detect) C. krusei (PCR) Not Detected (Not Detect) C. parapsilosis (PCR) Not Detected (Not Detect) C. tropicalis (PCR) Not Detected (Not Detect) Coronavirus OC43 (PCR) (Not Detect) Coronavirus HKU1 (PCR) (Not Detect) Coronavirus 229E (PCR) (Not Detect) Coronavirus NL63 (PCR) (Not Detect) Enterobacteriac sp PCR Not Detected (Not Detect) E. cloacae complex PCR Not Detected (Not Detect) Enterococcus sp PCR Not Detected (Not Detect) E. coli (PCR) Not Detected (Not Detect) H. influenzae (PCR) Not Detected (Not Detect) Herpes Simplex Source HSV I (Not Detect) HSV II (Not Detect) Human Metapneumovir PCR (Not Detect) Influenza A (H1) PCR (Not Detect) Influ A (H1N1/09) PCR (Not Detect) Influenza A (H3) PCR (Not Detect) Influenza A Untype (PCR) (Not Detect) Influenza Type B (PCR) (Not Detect) Klebsiella oxytoca PCR Not Detected (Not Detect) Klebsiella pneumoniae Not Detected (Not Detect) List. monocytogenes PCR Not Detected (Not Detect) M.pneumoniae DNA (PCR) (Not Detect) N. meningitidis (PCR) Not Detected (Not Detect) Parainfluenza 1 (PCR) (Not Detect) Parainfluenza 2 (PCR) (Not Detect) Parainfluenza 3 (PCR) (Not Detect) Parainfluenza 4 (PCR) (Not Detect) Proteus species (PCR) Not Detected (Not Detect) RSV (PCR) (Not Detect) Entero/Rhino (PCR) (Not Detect) Serratia marcescens PCR Not Detected (Not Detect) Staphylococcus sp PCR DETECTED A (Not Detect) Staph aureus (PCR) DETECTED A (Not Detect) mecA-Methicil Res Gene DETECTED A (Not Detect) Streptococcus sp PCR Not Detected (Not Detect) Group A Strep DNA Not Detected (Not Detect) Group B Strep (PCR) Not Detected (Not Detect) Strep pneumoniae (PCR) Not Detected (Not Detect) P. aeruginosa (PCR) Not Detected (Not Detect) Ivory/B-Vanco Res Genes N/A (Not Detect) KPC (blaKPC) Detect PCR N/A (Not Detect) 04/09/18 04/09/18 04/06/18 Range/Units 12:30 12:30 11:55 Ur Specimen Adequacy See below A Urine Color Yellow (Yellow) Urine Clarity Clear (Clear) Urine pH 5.5 (5.0-8.0) pH Units Ur Specific [place] 1.014 (1.010-1.025) Urine Protein 30 H (Neg-Trace) mg/dL Urine Glucose (UA) 250 H (Normal) mg/dL Urine Ketones Negative (Negative) mg/dL Urine Blood Small H (Negative) Urine Nitrite Negative (Negative) Urine Bilirubin Negative (Negative) Urine Urobilinogen Normal (Normal) mg/dL Ur Leukocyte Esterase Negative (Negative) Urine Microscopic RBC 5-15 H (0-3) per hpf Urine Microscopic WBC 0-3 (0-3) per hpf Ur Squamous Epith Cells Many H (None-Few) per lpf Urine Bacteria None Seen (None-Few) per hpf Hyaline Casts Test Not Performed Ur Culture Indicated? NO (NO) Urine Osmolality (300-1090) mOsm/kg Urine Sodium mEq/L Fluid Crystals CPPD Crystals Seen A (None Seen) Synovial Source RIGHT KNEE Synovial Color Straw (Straw) Synovial Appearance Cloudy A (Clear-Hazy) Synovial Volume 8.0 mL Synovial RBC TNP Synovial Tot Nuc Cell TNP Synovial Band Neuts Test Not Performed Synovial Basophils Test Not Performed Synovial Eosinophils Test Not Performed Synovial Seg Neuts % 2.0 % Synovial Lymphocytes % 84.0 % Synovial Monocytes % 14.0 % Synovial Other Cells % Test Not Performed Synovial Crystals (None Seen) A. baumannii (PCR) (Not Detect) Chlamy pneumoniae PCR (Not Detect) Adenovirus (PCR) (Not Detect) B. pertussis DNA (PCR) (Not Detect) B.parapertussis DNA PCR (Not Detect) Kirti albicans (PCR) (Not Detect) C. glabrata (PCR) (Not Detect) C. krusei (PCR) (Not Detect) C. parapsilosis (PCR) (Not Detect) C. tropicalis (PCR) (Not Detect) Coronavirus OC43 (PCR) (Not Detect) Coronavirus HKU1 (PCR) (Not Detect) Coronavirus 229E (PCR) (Not Detect) Coronavirus NL63 (PCR) (Not Detect) Enterobacteriac sp PCR (Not Detect) E. cloacae complex PCR (Not Detect) Enterococcus sp PCR (Not Detect) E. coli (PCR) (Not Detect) H. influenzae (PCR) (Not Detect) Herpes Simplex Source HSV I (Not Detect) HSV II (Not Detect) Human Metapneumovir PCR (Not Detect) Influenza A (H1) PCR (Not Detect) Influ A (H1N1/09) PCR (Not Detect) Influenza A (H3) PCR (Not Detect) Influenza A Untype (PCR) (Not Detect) Influenza Type B (PCR) (Not Detect) Klebsiella oxytoca PCR (Not Detect) Klebsiella pneumoniae (Not Detect) List. monocytogenes PCR (Not Detect) M.pneumoniae DNA (PCR) (Not Detect) N. meningitidis (PCR) (Not Detect) Parainfluenza 1 (PCR) (Not Detect) Parainfluenza 2 (PCR) (Not Detect) Parainfluenza 3 (PCR) (Not Detect) Parainfluenza 4 (PCR) (Not Detect) Proteus species (PCR) (Not Detect) RSV (PCR) (Not Detect) Entero/Rhino (PCR) (Not Detect) Serratia marcescens PCR (Not Detect) Staphylococcus sp PCR (Not Detect) Staph aureus (PCR) (Not Detect) mecA-Methicil Res Gene (Not Detect) Streptococcus sp PCR (Not Detect) Group A Strep DNA (Not Detect) Group B Strep (PCR) (Not Detect) Strep pneumoniae (PCR) (Not Detect) P. aeruginosa (PCR) (Not Detect) Ivory/B-Vanco Res Genes (Not Detect) KPC (blaKPC) Detect PCR (Not Detect) Exam - Constitutional Vitals: Temp Pulse Resp BP Pulse Ox 99.1 F 91 18 106/57 96 04/21/18 07:26 04/21/18 07:26 04/21/18 07:26 04/21/18 07:26 04/21/18 07:26 General appearance: average body habitus, cooperative, no acute distress - Head Head exam: Present: atraumatic, normal inspection, normocephalic - Eye Eye exam: Present: EOMI, normal appearance, PERRL Pupils: Present: normal accommodation Additional comments: No subconjunctival hemorrhage noted. - ENT ENT exam: Present: mucous membranes moist - Neck Neck exam: Present: normal inspection - Respiratory Respiratory exam: Present: decreased breath sounds (bilateral bases), CTAB. Ab sent: rales, respiratory distress, rhonchi, wheezes - Cardiovascular Cardiovascular exam: Present: RRR, +S1, +S2 - GI/Abdominal GI/Abdominal exam: Present: normal bowel sounds, soft. Absent: distended, tenderness Additional comments: Donohue catheter noted to be draining clear yellow urine. - Extremities Exam Extremities exam: Present: tenderness (bilateral knees). Absent: normal inspection (Right knee surgical sites with sutrues and steri-strips intact. Left knee post-op dressing C/D/I.), pedal edema Additional comments: BUE edema 1+, improved. - Neurological Exam Neurological exam: Present: alert, oriented X3, no focal deficits - Psychiatric Psychiatric exam: Present: normal affect, normal mood - Skin Skin exam: Present: dry, intact, normal color, warm Additional comments: No endocarditis stigmata noted. Consult Discharge Plan - Plan Referrals: Misael Lopez MD [Non-Partnered Physician] - (Patient is going to rehab no PCP appointment needed) - Attending Attestation I examined this patient and my medical decision-making was reviewed with the Resident Physician. I agree with the documented findings, disposition and treatment plan as described except to the extent set forth below.
[2018-04-21] MEDS: Multivit/Ca/Min/Fe/FA 1 TAB TABLET PO SCH (09:33)
[2018-04-21] MEDS: traMADol 50 MG TABLET PO SCH (09:33)
[2018-04-21] MEDS: Sennosides/Docusate Sodium TABLET PO SCH ×2 (09:33→20:56)
[2018-04-21] MEDS: Metoprolol XL (24 HR) Succ 25 MG TAB.ER.24H PO SCH (09:34)
[2018-04-21] MEDS: Ascorbic Acid 500 MG TABLET PO SCH ×2 (09:34→20:56)
[2018-04-21] MEDS: *HR* OxyCODONE Oral Soln 5 MG/5 ML UD.LIQ PO PRN ×3 (09:35→20:57)
[2018-04-21] MEDS: Nystatin SUSP 5 ML UD.LIQ PO SCH ×4 (09:37→21:01)
[2018-04-21] MEDS: Furosemide 20 MG/2 ML VIAL IVP SCH ×2 (09:37→17:19)
[2018-04-21] MEDS: Stomatitis Mixture 5 ML UDC PO SCH ×4 (09:37→21:01)
[2018-04-21 10:12] LABS: Hematocrit 27.7 % (35.3-44.9); Hemoglobin 9.2 g/dL (11.5-15.4)
--- NOTE | 2018-04-21 13:40 | Orthopedics Progress Note ---
Date of Encounter: 04/21/18 Time of Encounter: 08:00 - Assessment and Plan (1) Septic arthritis of knee, right Current Visit: Yes Status: Acute POD#10 - Right Knee I&D 04/11, MRSA + cultures POD#3 - Left Knee I&D 04/18 with Right knee aspiration. MRSA + cultures on both knees. Assessment and plan: Continue with postoperative care - ROM as tolerated, PT/OT Doppler RLE NEGATIVE Continue to monitor incisions; sutures in place. Will plan to remove next week in the office if discharged. Continue IV antibiotics per IDs recommendation ESR/CRP Left Shoulder: Recommend MRI outpatient as needed, IR aspiration - no fluid obtained; Continue with gentle hand and wrist ROM to improve swelling 04/14 - Left upper extremity venous duplex appears to be positive for at acute DVT in the left brachial and radial veins. F/up appt set and faxed to floor. Plan discussed and reviewed with Qualifiers: Septic arthritis organism: staphylococcal Qualified Code(s): M00.061 - Staphylococcal arthritis, right knee (2) Bacteremia Current Visit: Yes Status: Acute (3) Shoulder subluxation, left Current Visit: Yes Status: Acute Qualifiers: Encounter type: initial encounter Qualified Code(s): S43.002A - Unspecified subluxation of left shoulder joint, initial encounter (4) Arthritis of right knee Current Visit: Yes Status: Acute Subjective Principal diagnosis: Right Septic Knee, Left Septic Knee Interval history: Patient was seen this morning, POD#10 Right Knee Arthoscopic I&D 04/11/18, POD#3 Left Knee Arthroscopic I&D 04/18/18 Cultures 04/18 - Left Knee: +MRSA; Right Knee Aspiration +MRSA Patient reporting some improvement with fatigue and pain. Reports multi-joint pain and ache continues, PTOT today. RLE Doppler 04/15: Normal right lower extremity deep and superficial venous exam. Normal contralateral common femoral vein. LUE Doppler 04/14: Positive. Fever intermittent - Tylenol started today. Vital Signs Temp Pulse Resp BP Pulse Ox 04/21/18 07:26 99.1 F 91 18 106/57 96 04/21/18 03:57 100.6 F H 85 18 107/60 97 04/20/18 23:23 100.2 F H 88 17 106/55 97 04/20/18 20:27 100.9 F H 97 18 98/50 96 04/20/18 16:11 98.6 F 91 18 119/66 99 Intake and Output 04/20/18 04/21/18 04/21/18 23:59 07:59 15:59 Intake Total 350 / 350 350 / 350 Output Total 1500 / 1500 800 / 800 1375 / 1375 Balance -1150 / -1150 -450 / -450 -1375 / -1375 Intake: IV Fluids 350 / 350 350 / 350 Zosyn 3.375 GM In 0.9 % Sodium 100 / 100 100 / 100 Chloride (Mini-Bag +) 100 ML @ 25 mls/hr IVPB Q8HR [facility] Rx#: [id number] Vancocin 1,250 MG In 0.9 % 250 / 250 250 / 250 Sodium Chloride 250 ML @ 166.67 mls/hr IVPB Q12H [facility] Rx#: [id number] Output: Catheter 1500 / 1500 800 / 800 1375 / 1375 Other: Weight 83.5 kg Blood Glucose* 315 Patient Weight 04/21/18 23:59 Weight 83.5 kg WBC improved Short CBC 04/21/18 04/21/18 04/20/18 Range/Units 09:50 03:30 19:36 WBC 7.7 (4.3-11.1) K/mcL Hgb 9.2 L 8.5 L 8.7 L (11.5-15.4) g/dL Hct 27.7 L 26.0 L 26.3 L (35.3-44.9) % Plt Count 786 H (140-400) K/mcL Neutrophils # 6.2 (1.6-8.9) K/mcL 04/20/18 Range/Units 14:46 WBC (4.3-11.1) K/mcL Hgb 8.8 L (11.5-15.4) g/dL Hct 26.3 L (35.3-44.9) % Plt Count (140-400) K/mcL Neutrophils # (1.6-8.9) K/mcL BMP 04/21/18 Range/Units 03:30 Sodium 133 L (136-145) mEq/L Potassium 3.4 L (3.5-5.1) mEq/L Chloride 97 L (98-107) mEq/L Carbon Dioxide 31 H (23-29) mEq/L BUN 15 (8-23) mg/dL Creatinine 0.40 L (0.60-1.20) mg/dL Glucose 161 H (70-105) mg/dL Calcium 7.7 L (8.6-10.3) mg/dL Right Knee extremity: Sutures intact, steri-strips in place. C/D/I. Mild Effusion noted, no erythema, no drainage. No Calf tenderness NV intact distally Left knee: Sutures intact, steri-strips in place. C/D/I. Mild Effusion noted, no erythema, no drainage. No Calf tenderness NV intact distally Left Shoulder: 04/14 - Left upper extremity venous duplex appears to be positive for at acute DVT in the left brachial and radial veins. No effusion, swelling noted into arm and lower arm Shoulder ROM - unable to complete due to pain NV intact Finger swelling and stiffness noted Assessment and plan: Continue with postoperative care - ROM as tolerated, PT/OT Doppler RLE NEGATIVE Continue to monitor incisions; sutures in place. Will plan to remove next week in the office if discharged. Continue IV antibiotics per IDs recommendation ESR/CRP Left Shoulder: Recommend MRI outpatient as needed, IR aspiration - no fluid obtained; Continue with gentle hand and wrist ROM to improve swelling 04/14 - Left upper extremity venous duplex appears to be positive for at acute DVT in the left brachial and radial veins. F/up appt set and faxed to floor. Plan discussed and reviewed with Objective Vital signs: Vital Signs Temp Pulse Resp BP Pulse Ox 04/21/18 07:26 99.1 F 91 18 106/57 96 04/21/18 03:57 100.6 F H 85 18 107/60 97 04/20/18 23:23 100.2 F H 88 17 106/55 97 04/20/18 20:27 100.9 F H 97 18 98/50 96 04/20/18 16:11 98.6 F 91 18 119/66 99 Intake and Output 04/20/18 04/21/18 04/21/18 23:59 07:59 15:59 Intake Total 350 / 350 350 / 350 Output Total 1500 / 1500 800 / 800 1375 / 1375 Balance -1150 / -1150 -450 / -450 -1375 / -1375 Intake: IV Fluids 350 / 350 350 / 350 Zosyn 3.375 GM In 0.9 % Sodium 100 / 100 100 / 100 Chloride (Mini-Bag +) 100 ML @ 25 mls/hr IVPB Q8HR [facility] Rx#: [id number] Vancocin 1,250 MG In 0.9 % 250 / 250 250 / 250 Sodium Chloride 250 ML @ 166.67 mls/hr IVPB Q12H [facility] Rx#: [id number] Output: Catheter 1500 / 1500 800 / 800 1375 / 1375 Other: Weight 83.5 kg Blood Glucose* 315 Patient Weight 04/21/18 23:59 Weight 83.5 kg - Labs CBC & BMP: 04/21/18 09:50 04/21/18 03:30 Labs: Abnormal lab results RBC 2.96 M/mcL (3.82-4.97) L 04/21/18 03:30 Hgb 9.2 g/dL (11.5-15.4) L 04/21/18 09:50 Hct 27.7 % (35.3-44.9) L 04/21/18 09:50 RDW 14.8 % (11.5-14.5) H 04/21/18 03:30 Plt Count 786 K/mcL (140-400) H 04/21/18 03:30 Band Neutrophils % 6.0 % (0-4) H 04/13/18 05:34 Toxic Granulation Present (Not Present) A 04/12/18 16:20 Large Platelets Present (Not Present) A 04/13/18 05:34 Immature Plt Fraction 13.2 % (1.1-6.1) H 04/10/18 03:56 Anisocytosis 1+ (Not Present) A 04/13/18 05:34 ESR 111 mm/hr (0-15) H 04/17/18 09:00 PT 13.1 Seconds (9.4-12.1) H 04/19/18 05:05 D-Dimer 5840 ng/mLFEU (0-500) H 04/10/18 11:00 Heparin Anti-Xa, Unfract 0.22 IU/mL (0.30-0.70) L 04/20/18 03:05 VBG pCO2 33 mmHg (41-51) L 04/06/18 10:45 VBG pO2 84 mmHg (25-50) H 04/06/18 10:45 Sodium 133 mEq/L (136-145) L 04/21/18 03:30 Potassium 3.4 mEq/L (3.5-5.1) L 04/21/18 03:30 Chloride 97 mEq/L (98-107) L 04/21/18 03:30 Carbon Dioxide 31 mEq/L (23-29) H 04/21/18 03:30 Creatinine 0.40 mg/dL (0.60-1.20) L 04/21/18 03:30 BUN/Creatinine Ratio 38 (6-26) H 04/21/18 03:30 Glucose 161 mg/dL (70-105) H 04/21/18 03:30 Hemoglobin A1c 7.8 % (-5.6) H 04/06/18 10:31 Calcium 7.7 mg/dL (8.6-10.3) L 04/21/18 03:30 Venous Ioniz Calcium 1.14 mmol/L (1.15-1.35) L 04/17/18 07:03 Iron < 10 mcg/dL (50-170) L 04/18/18 11:39 Transferrin 104 mg/dL (203-362) L 04/18/18 11:39 Alkaline Phosphatase 200 Units/L (34-104) H 04/18/18 04:10 Creatine Kinase 11 Units/L (30-223) L 04/17/18 16:55 C-Reactive Protein 166 mg/L (Less than 10) H 04/17/18 09:00 B-Natriuretic Peptide 219 pg/mL (Less than 100) H 04/15/18 20:12 Serum Total Protein 5.0 g/dL (6.4-8.9) L 04/18/18 04:10 Albumin 1.7 g/dL (3.5-5.7) L 04/18/18 04:10 Albumin/Globulin Ratio 0.5 (1.1-2.2) L 04/18/18 04:10 Vitamin B12 > 1500 pg/mL (250-1100) H 04/18/18 11:39 Folate > 22.3 ng/mL (3.0-16.0) H 04/18/18 11:39 TSH 0.248 mcIU/mL (0.340-5.600) L 04/06/18 10:31 Ur Specimen Adequacy See below A 04/06/18 11:55 Urine Protein 30 mg/dL (Neg-Trace) H 04/06/18 11:55 Urine Glucose (UA) 250 mg/dL (Normal) H 04/06/18 11:55 Urine Blood Small (Negative) H 04/06/18 11:55 Urine Microscopic RBC 5-15 per hpf (0-3) H 04/06/18 11:55 Ur Squamous Epith Cells Many per lpf (None-Few) H 04/06/18 11:55 Fluid Crystals CPPD Crystals Seen (None Seen) A 04/09/18 12:30 Synovial RBC 0.250 M/mcl (0.000-0.002) H 04/17/18 19:23 Synovial Tot Nuc Cell 4770 TNC/mcL (0-200) H 04/17/18 19:23 Vancomycin Trough 18 mcg/mL (5-10) H 04/20/18 12:15 Urine Opiates Screen Positive ng/mL (Mgfidn=249) H 04/06/18 11:54 HSV I DETECTED (Not Detect) A 04/16/18 10:40 Staphylococcus sp PCR DETECTED (Not Detect) A 04/19/18 09:29 Staph aureus (PCR) DETECTED (Not Detect) A 04/19/18 09:29 mecA-Methicil Res Gene DETECTED (Not Detect) A 04/19/18 09:29 Consult Discharge Plan - Plan Referrals: Misael Lopez MD [Non-Partnered Physician] - (Patient is going to rehab no PCP appointment needed) Prescriptions: Apixaban [Eliquis] 5 mg PO BID 30 Days #60 tablet
--- NOTE | 2018-04-21 14:29 | Oncology Inp Progress Note ---
Date of Encounter: 04/21/18 Time of Encounter: 12:00 (1) Anemia Current Visit: Yes Status: Acute Assessment and plan: Ms. Mckeon appears to have a normocytic, normochromic down trending hgb since admission Anemia in the setting of anticoagulation for chronic DVT and a-fib in preparation for upcoming orthopedic procedures No prior labs to compare to She also has a leukocytosis and likely reactive thrombocytosis in the setting of severe sepsis, pneumonia, bacteremia and septic arthritis of the knee (causative organism:MRSA) Folate/B12 replete Iron <10 Per patient report she had a colonoscopy performed at [place] a "couple of years ago" entire colon was not visualized secondary to tortuous colon, however, patient states no abnormality was noted in visualized colon Differentials of anemia may include acute blood loss potentially of GI source, sepsis/DIC, among others Plan: Check stool occult blood, ferritin, LDH, blood smear and fibrinogen to rule out disseminated process---> pending (orders over weekend were cancelled?) Stop anticoagulation for acute decrease in hgb or for any s/s of bleeding at which may consider GI consultation Her hemoglobin has been stable over weekend, patient has atrial fibrillation in the setting of chronic upper extremity DVT and therefore would likely benefit from anticoagulation if deemed appropriate by cardiology for cardiac reasons (versus reasoning for her her chronic thrombus.) In reviewing cardiology's note there was recommendation for chcf anticoagulation benefit but concern over patients anemia As noted above source of anemia is not clear at this time however her stable hemoglobin would likely allow for anticoagulation at this time unless she develops signs or symptoms of active bleeding Patient was maintained on heparin drip however it appears that this was discontinued over the weekend for concern of anemia, recommend she remain on heparin drip until she may be cleared from a surgical perspective with future transition to anticoagulation per cardiology recommendations Consider nonemergent GI consultation as an outpatient Qualifiers: Qualified Code(s): D64.9 - Anemia, unspecified (2) Deep venous thrombosis of left upper extremity Current Visit: Yes Status: Acute Assessment and plan: Doppler reveals chronic DVT in the left brachial/radial veins with partial compression and spontaneous flow Plan as above Qualifiers: Qualified Code(s): I82.622 - Acute embolism and thrombosis of deep veins of left upper extremity (3) Atrial fibrillation with RVR Current Visit: Yes Status: Resolved Assessment and plan: [id number] score 4 Cardiology note reviewed 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 Mckeon is resting comfortably, no acute events overnight. She has oral lesions are improving with antibiotic treatment per infectious disease. Pain is controlled. She denies any recent fever, chills, nausea, vomiting, bowel changes, or any signs symptoms of bleeding such as hematochezia or melena. - Constitutional Vitals: Vital Signs Temp Pulse Resp BP Pulse Ox 04/21/18 07:26 99.1 F 91 18 106/57 96 04/21/18 03:57 100.6 F H 85 18 107/60 97 04/20/18 23:23 100.2 F H 88 17 106/55 97 04/20/18 20:27 100.9 F H 97 18 98/50 96 04/20/18 16:11 98.6 F 91 18 119/66 99 Intake and Output 04/20/18 04/21/18 04/21/18 23:59 07:59 15:59 Intake Total 350 / 350 350 / 350 Output Total 1500 / 1500 800 / 800 1375 / 1375 Balance -1150 / -1150 -450 / -450 -1375 / -1375 Intake: IV Fluids 350 / 350 350 / 350 Zosyn 3.375 GM In 0.9 % Sodium 100 / 100 100 / 100 Chloride (Mini-Bag +) 100 ML @ 25 mls/hr IVPB Q8HR [facility] Rx#: [id number] Vancocin 1,250 MG In 0.9 % 250 / 250 250 / 250 Sodium Chloride 250 ML @ 166.67 mls/hr IVPB Q12H [facility] Rx#: [id number] Output: Catheter 1500 / 1500 800 / 800 1375 / 1375 Other: Weight 83.5 kg Blood Glucose* 315 85 Patient Weight 04/21/18 23:59 Weight 83.5 kg General appearance: cooperative, no acute distress, no febrile - Head Head exam: Present: atraumatic - Eye Eye exam: Present: normal appearance - ENT ENT exam: Present: mucous membranes moist - Respiratory Respiratory exam: Present: decreased breath sounds. Absent: respiratory distress - Cardiovascular Cardiovascular exam: Present: RRR, +S1, +S2 - GI/Abdominal GI/Abdominal exam: Present: normal bowel sounds, soft. Absent: tenderness - Extremities Exam Extremities exam: Present: pedal edema Additional comments: left leg with jovani wrap thigh to ankle, right knee surgical incision without drainage or erthema, BUE edema noted - Neurological Exam Neurological exam: Present: alert, oriented X3, no focal deficits, strengths equal and symetr throughout - Psychiatric Psychiatric exam: Present: normal affect, normal mood - Skin Skin exam: Present: dry, normal color, warm Oncology: Obj Data - Labs CBC & Chem 7: 04/21/18 09:50 04/21/18 03:30 - Impressions Impressions Chest X-Ray 04/21/18 09:37 IMPRESSION: Moderate-sized pleural effusion seen on the lateral radiograph, possibly bilaterally. Bibasilar atelectasis. Mild pulmonary edema. D/ / Elsy Ramos MD / Elsy Ramos MD Interpreting Provider: Elsy Ramos MD - ABG Interpretation ABG results: PT/INR, D-dimer PT 13.1 Seconds (9.4-12.1) H 04/19/18 05:05 D-Dimer 5840 ng/mLFEU (0-500) H 04/10/18 11:00 Consult Discharge Plan - Plan Referrals: Misael Lopez MD [Non-Partnered Physician] - (Patient is going to rehab no PCP appointment needed)
--- NOTE | 2018-04-21 16:02 | Discharge Summary ---
<Levar Oneil S - Last Filed: 04/21/18 16:00> - NOTES TO OUTPATIENT PROVIDER Notes to Outpatient Provider: Follow up for resolution of joint pain. Orders not resulted at time of discharge: Pending orders 04/10/18 16:41 Osmolality,Urine [UCHEM] Routine Sodium, Urine [UCHEM] Routine 04/15/18 13:44 Culture,Sputum with Gram Stain [RM] Routine 04/17/18 19:23 Culture,Anaerobic [RM] Stat 04/18/18 20:31 Culture,Anaerobic [RM] Routine Culture,Anaerobic [RM] Routine 04/19/18 09:29 Culture,Blood [BC] Routine 04/21/18 15:30 Hemoglobin and Hematocrit [HEME] Q6H 04/21/18 21:30 Hemoglobin and Hematocrit [HEME] Q6H 04/22/18 04:00 BMP [Basic Metabolic Panel] AM 0400 BMP [Basic Metabolic Panel] AM 0400 CMP [Comprehensive Metabolic Panel] AM 0400 Complete Blood Count [HEME] AM 0400 Complete Blood Count [HEME] AM 0400 Culture,Blood [BC] AM 0400 Ferritin AM 0400 Fibrinogen [COAG] AM 0400 LDH [Lactate Dehydrogenase] AM 0400 Pathologist Blood Smear Review [HEME] AM 0400 Date of Encounter: 04/21/18 Time of Encounter: 16:00 - Discharge Diagnosis (1) Sepsis Priority: Primary Status: Resolved Qualifiers: Sepsis type: sepsis due to unspecified organism Qualified Code(s): A41.9 - Sepsis, unspecified organism (2) Thrombocytosis Priority: Secondary Status: Acute (3) Anemia Priority: Secondary Status: Acute Qualifiers: Anemia type: unspecified type Qualified Code(s): D64.9 - Anemia, unspecified (4) Pneumonia Priority: Secondary Status: Suspected Qualifiers: Pneumonia type: due to unspecified organism Laterality: bilateral Lung location: unspecified part of lung Qualified Code(s): J18.9 - Pneumonia, unspecified organism (5) Acute respiratory failure Priority: Secondary Status: Resolved Qualifiers: Respiratory failure complication: hypoxia Qualified Code(s): J96.01 - Acute respiratory failure with hypoxia (6) Deep venous thrombosis of left upper extremity Priority: Secondary Status: Acute Qualifiers: Affected thrombotic vein of extremity: brachial Chronicity: acute Qualified Code(s): I82.622 - Acute embolism and thrombosis of deep veins of left upper extremity (7) Atrial fibrillation with RVR Priority: Secondary Status: Resolved (8) Shoulder subluxation, left Priority: Secondary Status: Acute Qualifiers: Encounter type: initial encounter Qualified Code(s): S43.002A - Unspecified subluxation of left shoulder joint, initial encounter (9) Arthritis of right knee Priority: Secondary Status: Acute (10) Type 1 diabetes Priority: Secondary Status: Acute Qualifiers: Diabetes mellitus complication status: with unspecified complications Qualified Code(s): E10.8 - Type 1 diabetes mellitus with unspecified complications (11) Hyponatremia Priority: Secondary Status: Acute (12) Abnormal TSH Priority: Secondary Status: Acute (13) Calcium pyrophosphate arthropathy Priority: Secondary Status: Acute (14) Bacteremia Priority: Secondary Status: Acute (15) Hypokalemia Priority: Secondary Status: Acute (16) DVT prophylaxis Priority: Secondary Status: Acute Hospital course: Ms. Mckeon is a 77 year old female with a PMH of T1DM, hypothyroidism, chronic hyponatremia, CPPD arthropathy, GERD, HTN, constipation, and rheumatic fever as a child. She is currently hospital day 15. The pt was admitted with c/o left shoulder and right knee pain on 04/06. She had been experiencing increasing pain over the last 6mos and was unable to complete her ADLs due to the worsening joint pain. The pt family reported intermittent episodes of confusion. Ortho was consulted to see the pt and they recommended outpatient management with PTOT and sports medicine. They recommended rheumatology consult. Rheumatology saw the pt on 04/10 after a rigth knee arthrocentesis was performed . 10cc yellow, purulent fluid was obtained and fluid analysis showed CPPD crystals and g(+) cocci. -ortho and rheumatology discussed the case and the pt was brought to the OR for arthroscopy on 04/1104/15/18 - Pulmonology consulted for b/l pleural effusions, pt opted to try diuresis instead of an invasive procedure. Pulm has since signed off Repeat CXR on 04/21 - showed bilateral pleural effusions and pulmonary edema The pt has multiple septic joints Blood cx (+) for MRSA, wound cx (+) for MRSA, - repeat blood cx resulted 04/14 and was positive for g(+) cocci and 04/16 (+) for g (+) cocci - Blood cx on 04/17: (+) for g (+) cocci - Right and left knee cx both are (+) for gram positve cocci - Blood cx 04/19 (+) for MRSA - Pt currently does not meet sepsis criteria HR 85 WBC count 7.7 t max overnight 100.9 - 04/11/18 underwent right knee arthroscopy irrigation debridement - medial and lateral menisci were evaluated. No tear of the medial or lateral meniscus was identified. - ACL and PCL w/o pathology. - right knee arthrocentesis was performed on 04/09 --- 10cc yellow, purulent fluid was obtained and fluid analysis showed CPPD crystals and g(+) cocci. - 04/18: ortho performed left knee arthroscopy irrigation and debridement, right knee aspiration - ESR on 04/15 was 85, increased to 111 on 04/17 - The pt has been on vancomycin x 12 days, zosyn x 7 days, and daptomycin x 4 days At this time, we feel that we have maximized what we can do for the pt at this facility and that [facility] will have better options for care of this patient Heme onc consulted - the pt was found to have Left UE DVT's on 04/14/18 and was put on a heparin drip, however, due to the dropping hemoglobin the heparin was held Platelet count was 786 on 04/21 -04/20 plt 866, 04/19 755 May be reactive to surgery, however, the pt also had a dropping hemoglobin as trended below Hemoglobin trending down. -admission hemoglobin 11.3 ---> 10.9 ---> 8.6 ---> 8.5 ----> 04/14/18 hemoglobin 7.3 -currently on heparin drip - pt was given 1 unit of RBC 04/14, hgb improved to 9, was 9.5 on 04/16 - 04/17 - hemoglobin 8.3, 04/18 - 8.0 - 04/19: hemoglobin 8.0 - 04/20: Hgb 7.4 - 04/21: Hgb 8.5 On initial presentation, the pt was in a fib with RVR -cardiology consulted and signed off -Troponin <0.03 x 2 -ECHO on 04/10 showed LVEF 65-70%, normal LV systolic and diastolic fxn, no significant valvular dysfxn -CHADVASc of 4 - pt was on an amiodarone drip which was d/c as per cardiology - Lopressor 25mg PO adal as per cardiology - Eliquis was prescribed, however, wasn't started secondary to the left UE DVT's The patient needs a hematology oncology workup, a rheumatology follow up and an ortho consult. The pt needs to be evaluated for septic arthritis. ID at [facility] recommended an IDALIA prior to discharge, the pt had a hx of rheumatic fever as a child. However, the patient isn't stable enough currently. It was also suggested that the pt may be seeding bacteria from her vertebrae. She is currently hemody namically stable and can be transferred bed placement. Discharge discussed with: patient - Time Spent with Patient Total time spent providing and/or coordinating discharge services: Less than 30 minutes - Discharge Medications Home Medications: Albuterol Sulfate [Ventolin Hfa] 2 puff IH Q4H PRN 04/06/18 [History] Budesonide/Formoterol 160/4.5 [Symbicort 160/4.5] 2 puff PO BID 04/06/18 [History] Esomeprazole Magnesium [Nexium] 40 mg PO DAILY 04/06/18 [History] Insulin ASPART [NovoLOG] 0 unit SQ AD 04/06/18 [History] Lisinopril/Hydrochlorothiazide [Zestoretic 20-25 mg Tablet] 1 tab PO DAILY 04/06/18 [History] Meloxicam 15 mg PO DAILY 04/06/18 [History] Methyl Salicylate/Menthol [Salonpas Patch] 1 patch TP DAILY PRN MDD N 04/06/18 [History] Montelukast [Singulair] 10 mg PO DAILY 04/06/18 [History] Multivitamin [One Daily Essential] 1 tab PO DAILY 04/06/18 [History] Tramadol HCl [Ultram] 50 mg PO DAILY 04/06/18 [History] Cyclobenzaprine [Flexeril] 5 mg PO BID PRN tablet 04/21/18 [Rx] Ferrous Sulfate 325 mg PO DAILY@0900 tablet 04/21/18 [Rx] Furosemide [Lasix] 20 mg IVP BIDDIURETIC vial 04/21/18 [Rx] MOM Conc [MILK OF MAGNESIA conc] 5 ml PO HS PRN ud.liq 04/21/18 [Rx] Promethazine [Phenergan] 6.25 mg IVP Q5MIN PRN vial 04/21/18 [Rx] Stomatitis Mixture 5 ml PO QID mls 04/21/18 [Rx] Temazepam [Restoril] 15 mg PO HS PRN capsule 04/21/18 [Rx] Allergies/Adverse Reactions: Allergy/AdvReac Type Severity Reaction Status Date / Time No Known Allergies Allergy Verified 04/06/18 10:17 Date of admission: 04/09/18 16:10 Primary care physician: PCP NONE Consults: 04/06/18 12:39 Consult to Orthopedic Surgery [CONS] Stat Consulting Provider: [facility] Reason for Consult: Shoulder subluxation, R knee loose body Time Notified: 12:40 Call Completed: Yes 04/07/18 18:40 Consult to Occupational Therapy [CONS] Routine Comment: Evaluate, develop and implement POC Reason for Consult: shoulder and knee pain, assistance with ambulating Does patient have active BEDREST order?: No Is patient medically & hemodynamically stable?: Yes Patient assessed for mobility or mobilized this visit?: Yes Consult to Physical Therapy [CONS] Routine Comment: Evaluate, develop and implement POC Reason for Consult: shoulder and knee pain, assistance with ambulating Does patient have active BEDREST order?: No Is patient medically & hemodynamically stable?: Yes Patient assessed for mobility or mobilized this visit?: Yes 04/09/18 10:17 Consult to Rheumatology [CONS] Routine Consulting Provider: Bob Morales Reason for Consult: Severe OA and possible RA Call Completed: Yes 04/10/18 13:31 Consult to Audit Consultant [CONS] Routine Reason for SW Consult: Discharge planning, evaluate power of patent attorney status and CODE STATUS 04/11/18 08:34 Consult to Infectious Diseases [CONS] Routine Consulting Provider: [facility] Reason for Consult: septic joint, bacteremia Call Completed: No 04/11/18 19:41 Consult to Occupational Therapy [CONS] Routine Comment: Evaluate, develop and implement POC Reason for Consult: post knee surgery Does patient have active BEDREST order?: No Is patient medically & hemodynamically stable?: Yes Consult to Orthopedic Navigator [CONS] [CONS] Routine Consult to Physical Therapy [CONS] Routine Comment: Evaluate, develop and impliment POC Reason for Consult: post knee surgery Does patient have active BEDREST order?: No Is patient medically & hemodynamically stable?: Yes Consult to Audit Consultant [CONS] Routine Reason for SW Consult: post op joint replacement 04/12/18 14:16 Consult to Invasive Line Access Team [CONS] Routine Reason for Consult: Picc Line Insertion Line Type: PICC 04/15/18 13:14 Consult to Pulmonology [CONS] Routine Consulting Provider: [facility] [place] Reason for Consult: b/l pneumonia Call Completed: Yes 04/15/18 13:48 Consult to Pastoral Services [CONS] Routine Comment: 04/17/18 11:15 Consult to Rheumatology [CONS] Routine Consulting Provider: Bob Morales Reason for Consult: CPPD , septic arthritis Call Completed: Yes 04/18/18 09:08 Consult to Oncology Hematology [CONS] Routine Consulting Provider: Brian Julio Reason for Consult: hemoglboin Call Completed: No Discharging clinician: Levar Oneil Anticipated date of discharge: 04/21/18 - Constitutional Vitals: Temp Pulse Resp BP Pulse Ox 99.1 F 91 18 106/57 96 04/21/18 07:26 04/21/18 07:26 04/21/18 07:26 04/21/18 07:26 04/21/18 07:26 Exam: Constitutional: Alert and oriented 3 mildly distressed secondary to pain HEENT: Normocephalic, atraumatic, moist mucus membranes Heart: Regular rhythm, no murmurs, no edema Lungs: lungs clear and equal bilaterally, no rhonchi, no wheeze Abdomen: Soft, normal bowel sounds, no rigidity Extremities: erythema of left knee, right knee wrapped in jovani bandage, left knee swollen, no shoulder pain elicited upon palpation, no calf tenderness, nonpitting edema of the left upper extremity has improved, lt hand swollen and tender to touch Skin: warm and dry, no lesions, no rashes, no jaundice Psych: thought content congruent, normal mood and normal affect Neurological: Alert and oriented x 3 - Patient Status Disposition: Transfer Short-Term Hosp Condition: Fair Functional capacity at discharge: bed bound Overall status at discharge: patient is not back to baseline - Discharge Instructions Follow Up With: Misael Lopez MD [Non-Partnered Physician] - (Patient is going to rehab no PCP appointment needed) - Diet and Activity Activity: as per physical therapy, increase activity as tolerated Diet: low fat, low cholesterol <[email or web address] - Last Filed: 04/21/18 17:52> Orders not resulted at time of discharge: Pending orders 04/10/18 16:41 Osmolality,Urine [UCHEM] Routine Sodium, Urine [UCHEM] Routine 04/15/18 13:44 Culture,Sputum with Gram Stain [RM] Routine 04/17/18 19:23 Culture,Anaerobic [RM] Stat 04/18/18 20:31 Culture,Anaerobic [RM] Routine Culture,Anaerobic [RM] Routine 04/19/18 09:29 Culture,Blood [BC] Routine 04/21/18 15:30 Hemoglobin and Hematocrit [HEME] Q6H 04/21/18 21:30 Hemoglobin and Hematocrit [HEME] Q6H 04/22/18 04:00 BMP [Basic Metabolic Panel] AM 0400 BMP [Basic Metabolic Panel] AM 0400 CMP [Comprehensive Metabolic Panel] AM 0400 Complete Blood Count [HEME] AM 0400 Complete Blood Count [HEME] AM 0400 Culture,Blood [BC] AM 0400 Ferritin AM 0400 Fibrinogen [COAG] AM 0400 LDH [Lactate Dehydrogenase] AM 0400 Pathologist Blood Smear Review [HEME] AM 0400 - Discharge Diagnosis (1) Shoulder subluxation, left Status: Acute Qualifiers: Encounter type: initial encounter Qualified Code(s): S43.002A - Unspecified subluxation of left shoulder joint, initial encounter (2) Arthritis of right knee Status: Acute (3) Type 1 diabetes Status: Acute Qualifiers: Diabetes mellitus complication status: with unspecified complications Qualified Code(s): E10.8 - Type 1 diabetes mellitus with unspecified complications (4) Hyponatremia Status: Acute (5) Abnormal TSH Status: Acute (6) DVT prophylaxis Status: Acute (7) Calcium pyrophosphate arthropathy Status: Acute (8) Atrial fibrillation with RVR Status: Resolved (9) Sepsis Status: Resolved Qualifiers: Sepsis type: sepsis due to unspecified organism Qualified Code(s): A41.9 - Sepsis, unspecified organism (10) Bacteremia Status: Acute (11) Hypokalemia Status: Acute (12) Anemia Status: Acute Qualifiers: Anemia type: unspecified type Qualified Code(s): D64.9 - Anemia, unspecified (13) Deep venous thrombosis of left upper extremity Status: Acute Qualifiers: Affected thrombotic vein of extremity: brachial Chronicity: acute Qualified Code(s): I82.622 - Acute embolism and thrombosis of deep veins of left upper extremity (14) Pneumonia Status: Suspected Qualifiers: Pneumonia type: due to unspecified organism Laterality: bilateral Lung location: unspecified part of lung Qualified Code(s): J18.9 - Pneumonia, unspecified organism (15) Acute respiratory failure Status: Resolved Qualifiers: Respiratory failure complication: hypoxia Qualified Code(s): J96.01 - Acute respiratory failure with hypoxia (16) Thrombocytosis Status: Acute Hospital course: Ms. Mckeon is a 77 year old female - Time Spent with Patient Total time spent providing and/or coordinating discharge services: Date of admission: 04/09/18 16:10 Primary care physician: PCP NONE Consults: 04/06/18 12:39 Consult to Orthopedic Surgery [CONS] Stat Consulting Provider: [facility] Reason for Consult: Shoulder subluxation, R knee loose body Time Notified: 12:40 Call Completed: Yes 04/07/18 18:40 Consult to Occupational Therapy [CONS] Routine Comment: Evaluate, develop and implement POC Reason for Consult: shoulder and knee pain, assistance with ambulating Does patient have active BEDREST order?: No Is patient medically & hemodynamically stable?: Yes Patient assessed for mobility or mobilized this visit?: Yes Consult to Physical Therapy [CONS] Routine Comment: Evaluate, develop and implement POC Reason for Consult: shoulder and knee pain, assistance with ambulating Does patient have active BEDREST order?: No Is patient medically & hemodynamically stable?: Yes Patient assessed for mobility or mobilized this visit?: Yes 04/09/18 10:17 Consult to Rheumatology [CONS] Routine Consulting Provider: Bob Morales Reason for Consult: Severe OA and possible RA Call Completed: Yes 04/10/18 13:31 Consult to Audit Consultant [CONS] Routine Reason for SW Consult: Discharge planning, evaluate power of patent attorney status and CODE STATUS 04/11/18 08:34 Consult to Infectious Diseases [CONS] Routine Consulting Provider: [facility] Reason for Consult: septic joint, bacteremia Call Completed: No 04/11/18 19:41 Consult to Occupational Therapy [CONS] Routine Comment: Evaluate, develop and implement POC Reason for Consult: post knee surgery Does patient have active BEDREST order?: No Is patient medically & hemodynamically stable?: Yes Consult to Orthopedic Navigator [CONS] [CONS] Routine Consult to Physical Therapy [CONS] Routine Comment: Evaluate, develop and impliment POC Reason for Consult: post knee surgery Does patient have active BEDREST order?: No Is patient medically & hemodynamically stable?: Yes Consult to Audit Consultant [CONS] Routine Reason for SW Consult: post op joint replacement 04/12/18 14:16 Consult to Invasive Line Access Team [CONS] Routine Reason for Consult: Picc Line Insertion Line Type: PICC 04/15/18 13:14 Consult to Pulmonology [CONS] Routine Consulting Provider: [facility] [place] Reason for Consult: b/l pneumonia Call Completed: Yes 04/15/18 13:48 Consult to Pastoral Services [CONS] Routine Comment: 04/17/18 11:15 Consult to Rheumatology [CONS] Routine Consulting Provider: Bob Morales Reason for Consult: CPPD , septic arthritis Call Completed: Yes 04/18/18 09:08 Consult to Oncology Hematology [CONS] Routine Consulting Provider: Brian Julio Reason for Consult: hemoglboin Call Completed: No - Constitutional Vitals: Temp Pulse Resp BP Pulse Ox 99.2 F 93 18 130/60 97 04/21/18 16:33 04/21/18 16:33 04/21/18 16:33 04/21/18 16:33 04/21/18 16:33 - Attending Attestation I examined this patient and my medical decision-making was reviewed with the Resident Physician. I agree with the documented findings, disposition and treatment plan as described except to the extent set forth below. Septic Arthritis of Right and Left Knee: POD #10 right knee I&D, grew MRSA POD#3 - Left Knee I&D 04/18 with Right knee aspiration. MRSA + cultures on both knees. Likely secondary to bacteremia and right knee septic arthritis. Improved. WBC normalized Tachycardia resolved. Tmax 100.9 in the past 24 hours. Blood cultures drawn 04/10/18 are +2 out of 2 sets for MRSA. Repeat blood cultures drawn 04/13/18 are positive 2/2 sets. Additional blood cultures drawn 04/14/18 are positive 2/2 sets. Repeat blood cultures drawn 04/16/18 are positive 2/2 sets. Repeat blood cultures drawn 04/19/18 are positive 1/2 sets. See ID consult and progress note. Bacteremia Likely from septic arthritis of both knees. Multiple blood cultures show +MRSA, sensitivities are available, will be sent along with chart. Blood cultures remain positive despite treating MRSA according to sensitivy report. Patient will need a IDALIA for further eval of other source of infection. May need scan of spine for eval of any abscess. ID has been following, patient is currently on vanc/Dapto. Left upper extremity DVT: Venous duplex showed chronic DVT in left brachial/radial veins. Patient was on a heparin drip for atrial fibrillation and as well as acute DVT of left upper extremity. The heparin drip was discontinued as she did have episode of acute anemia, unsure at that point if it was acute blood loss. However her H&H and hemodynamics are stable so she will be given a dose of therapeutic Lovenox prior to transfer. Atrial Fibrillation: On Toprol XL, rate controlled. Anticoagulation complicated by acute anemia. Currently hemoglobin is stable and so will give therapeutic Lovenox based on age/weight prior to transfer to [facility]. Acute anemia: Possibly acute illness related to sepsis, but acute blood loss anemia could not be ruled out after close monitoring while she was on a heparin drip. After discontinuing heparin drip, hemoglobin levels appeared to improve. She has required 3 units of PRBC during this admission (04/14, 04/20). May need GI consult for further evaluation. Acute Respiratory failure with hypoxia: Secondary to fluid overload and possibly a pneumonia as well. Seen on CT chest of pleural effusions, vascular congestion, and infiltrates. Pulmonology was consulted, no acute intervention was required. She was on Vanc/Zosyn for coverage. Continue diuresis with Lasix, incentive spirometry. Wean O2 as tolerated.
[2018-04-21] MEDS ORDERED: *HR* Enoxaparin 60 MG/0.6 ML SYRINGE SQ STA (17:07)
[2018-04-21] MEDS: DAPTOmycin 500 MG in 0.9 % Sodium Chloride 100 ML IVPB SCH (19:20)
[2018-04-21] MEDS: Insulin DETEMIR 100 UNIT/ML X5UNITS SQ SCH (21:15)
[2018-04-21 23:56] LABS: Hematocrit 25.6 % (35.3-44.9); Hemoglobin 8.5 g/dL (11.5-15.4)
[2018-04-22] MEDS: Piperacillin/Tazobactam 3.375 GM in 0.9 % Sodium Chloride Mini Bag 100 ML IVPB SCH ×2 (00:50→08:52)
[2018-04-22] MEDS: *HR* OxyCODONE Oral Soln 5 MG/5 ML UD.LIQ PO PRN ×4 (00:55→21:29)
[2018-04-22 05:04] LABS: Basophils # 0.1 K/mcL (0.0-0.2); Basophils % 0.6 %; Eosinophils # 0.1 K/mcL (0.0-0.6); Eosinophils % 1.5 %; Hematocrit 26.1 % (35.3-44.9); Hemoglobin 8.7 g/dL (11.5-15.4); Immature Granulocytes % 0.8 % (0-4); Lymphocytes # 1.2 K/mcL (0.6-4.6); Lymphocytes % 13.2 %; Mean Corpuscular HGB Conc 33.3 g/dL (31.6-35.5); Mean Corpuscular Hemoglobin 29.4 pg (28.0-33.3); Mean Corpuscular Volume 88.2 fL (83.0-100.0); Mean Platelet Volume 9.2 fL (9.4-12.4); Monocytes # 0.5 K/mcL (0.0-1.3); Monocytes % 5.5 %; Neutrophils # 6.9 K/mcL (1.6-8.9); Platelet Count 757 K/mcL (140-400); Red Blood Count 2.96 M/mcL (3.82-4.97); Red Cell Distribution Width 14.9 % (11.5-14.5); Segmented Neutrophils % 78.4 %
[2018-04-22 05:17] LABS: BUN/Creatinine Ratio 34 (6-26); Blood Urea Nitrogen 12 mg/dL (8-23); Calcium 7.9 mg/dL (8.6-10.3); Carbon Dioxide 32 mEq/L (23-29); Chloride 94 mEq/L (98-107); Glucose 85 mg/dL (70-105); Osmolality,Calculated 275 (280-300); Potassium 3.4 mEq/L (3.5-5.1); Sodium 133 mEq/L (136-145); eGFR For Non-African Americans > 60 (> 60)
[2018-04-22 05:19] LABS: Alanine Aminotransferase 11 Units/L (7-52); Albumin 1.8 g/dL (3.5-5.7); Albumin/Globulin Ratio 0.5 (1.1-2.2); Alkaline Phosphatase 163 Units/L (34-104); Aspartate Amino Transferase 22 Units/L (13-39); BUN/Creatinine Ratio 32 (6-26); Bilirubin,Total 0.5 mg/dL (0.3-1.0); Blood Urea Nitrogen 12 mg/dL (8-23); Calcium 8.1 mg/dL (8.6-10.3); Carbon Dioxide 32 mEq/L (23-29); Chloride 95 mEq/L (98-107); Globulin 3.3 g/dL (2.4-3.5); Glucose 85 mg/dL (70-105); Lactate Dehydrogenase 122 Units/L (140-271); Osmolality,Calculated 273 (280-300); Potassium 3.4 mEq/L (3.5-5.1); Sodium 132 mEq/L (136-145); Total Protein 5.1 g/dL (6.4-8.9); eGFR For Non-African Americans > 60 (> 60)
[2018-04-22 05:38] LABS: Ferritin 470 ng/mL (10-120)
[2018-04-22] MEDS: Insulin LISPRO 300 UNITS/3 ML VIAL SQ SCH ×2 (08:39→12:16)
--- NOTE | 2018-04-22 08:44 | Internal Med Progress Note ---
<Levar Oneil S - Last Filed: 04/22/18 10:53> Hospitalist Progress Note - Encounter Date of Encounter: 04/22/18 Time of Encounter: 08:42 - Subjective Interval History: Pt is seen at the bedside. She is hospital day 14. The pt was admitted with c/o left shoulder and right knee pain on 04/06. She had been experiencing increasing pain over the last 6mos and was unable to complete her ADLs due to the worsening joint pain. The pt family reported intermittent episodes of confusion. Ortho was consulted to see the pt and they recommended outpatient management with PTOT and sports medicine. They recommended rheumatology consult. The pt then experienced A fib with RVR and was put on IV heparin anticoagulation as per cardiology and lopressor. - currently the pt has beta blockers held 2/2 hypotension Rheumatology saw the pt on 04/10 after a rigth knee arthrocentesis was performed . 10cc yellow, purulent fluid was obtained and fluid analysis showed CPPD crystals and g(+) cocci. -ortho and rheumatology discussed the case and the pt was brought to the OR for arthroscopy on 04/1104/15/18 - Pulmonology consulted for b/l pleural effusions, pt opted to try diuresis instead of an invasive procedure. Pulm has since signed off The pt continues to report discomfort in all joints. Denies chest pain, SOB, abd pain. Denies n/v/d. Pt wishes to be made a DNR and wishes to have palliative consult about goals of care and medical decision making if she cannot. - pt has increased warmth in the LUE and increased discomfort. - Exam Vitals: Temp Pulse Resp BP Pulse Ox 100.3 F H 93 18 108/56 94 04/22/18 07:53 04/22/18 07:53 04/22/18 07:53 04/22/18 07:53 04/22/18 07:53 Exam: Constitutional: Alert and oriented 3 mildly distressed secondary to pain HEENT: Normocephalic, atraumatic, moist mucus membranes Heart: Regular rhythm, no murmurs, no edema Lungs: lungs clear and equal bilaterally, no rhonchi, no wheeze Abdomen: Soft, normal bowel sounds, no rigidity Extremities: erythema of left knee, right knee wrapped in jovani bandage, left knee swollen, no shoulder pain elicited upon palpation, no calf tenderness, nonpitting edema of the left upper extremity has improved, lt hand swollen and tender to touch Skin: warm and dry, no lesions, no rashes, no jaundice Psych: thought content congruent, normal mood and normal affect Neurological: Alert and oriented x 3 - Assessment and Plan (1) Sepsis Current Visit: Yes Status: Resolved Assessment and Plan: Likely secondary to septic joint Blood cx (+) for MRSA, wound cx (+) for MRSA, - repeat blood cx resulted 04/14 and was positive for g(+) cocci and 04/16 (+) for g (+) cocci - Blood cx on 04/17: (+) for g (+) cocci - Right and left knee cx both are (+) for gram positve cocci - Blood cx 04/19 (+) for MRSA - Pt currently does not meet sepsis criteria HR 93 WBC count 8.8 t max 100.3 - 04/11/18 underwent right knee arthroscopy irrigation debridement - medial and lateral menisci were evaluated. No tear of the medial or lateral meniscus was identified. - ACL and PCL w/o pathology. - right knee arthrocentesis was performed on 04/09 --- 10cc yellow, purulent fluid was obtained and fluid analysis showed CPPD crystals and g(+) cocci. - 04/18: ortho performed left knee arthroscopy irrigation and debridement, right knee aspiration - ESR on 04/15 was 85, increased to 111 on 04/17 Plan: - palliative to see - Vancomycin day 13, zosyn day 8 - - daptomycin day 6 -ID following As per ID, will most likely need 4-6 wks of abx tx Plan for midline or PICC placement when closer to discharge Recommends IDALIA prior to d/c - Ortho following Soft mechanical diet currently Synovial fluid from right knee pending results - CRP pending - repeat blood cx pending - dispo: pending bed placement at [place] - will touch base with Heme Onc to discuss anticoagulation recommendation (2) Shoulder subluxation, left Current Visit: Yes Status: Acute Assessment and Plan: Shoulder XR on 04/07 - Severe left glenohumeral joint osteoarthritic degenerative changes with large marginal osteophytes, subchondral changes and bony remottling. - Calcification, no acute fx or dislocation Plan: - PTOT as toleration - pain control with oxcodone - ice as needed (3) Arthritis of right knee Current Visit: Yes Status: Acute Assessment and Plan: Pt has hx of severe OA, fam hx of rheumatoid arthritis Plan: - right knee arthroscopy irrigation and debridement with Dr. Fournier 8 days ago - joint aspiration cultures positive for gram-positive cocci, repeat blood cx showed g(+) cocci - vancomycin day 13 - zosyn day 8 - daptomycin day 6 - joint was aspirated yesterday, synovial fluid report pending (4) Type 1 diabetes Current Visit: Yes Status: Acute Assessment and Plan: Glucose this morning 85 -continue determir, increased to 20U -continue sliding scale as per protocol (5) Hyponatremia Current Visit: Yes Status: Acute Assessment and Plan: Sodium this morning 132 Plan: - discontinue 75cc/hr 0.9% NS - lisinopril and HCTZ held - check BMP in the morning (6) Abnormal TSH Current Visit: Yes Status: Acute Assessment and Plan: TSH 0.248 -FT4 1.25, FT3 3.11 -likely subclinical hypothyroidism -follow up outpatient (7) DVT prophylaxis Current Visit: Yes Status: Acute Assessment and Plan: heparin drip held (8) Calcium pyrophosphate arthropathy Current Visit: Yes Status: Acute Assessment and Plan: 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 - likely source of pt arthralgias, although it appears that pt has a multifacto rial disease process - Rh factor <10 -CCP WNL Plan: - ortho consulted appreciate recommendations - continue abx as per plan above - rheumatology signed off, recommends outpt follow up (9) Atrial fibrillation with RVR Current Visit: Yes Status: Resolved Assessment and Plan: New onset A fib RVR -cardiology consulted and signed off -Troponin <0.03 x 2 -ECHO on 04/10 showed LVEF 65-70%, normal LV systolic and diastolic fxn, no significant valvular dysfxn Currently in sinus rhythm, HR 93 -CHADVASc of 4 Plan: - amiodarone drip d/c as per cardiology - Lopressor 25mg PO adal as per cardiology - heparin d/c - on telemetry (10) Bacteremia Current Visit: Yes Status: Acute Assessment and Plan: Blood cultures positive for MRSA - see plan as above for sepsis (11) Hypokalemia Current Visit: Yes Status: Acute Assessment and Plan: Potassium 3.4 today. Plan: - Replaced with oral supplement yesterday - continue to monitor electrolytes (12) Anemia Current Visit: Yes Status: Acute Assessment and Plan: May be 2/2 to sepsis, heme onc feels unlikely due to GIB - pt was given 1 unit of RBC 04/14, hgb improved to 9, was 9.5 on 04/16 Iron profile Fe <10, transferrin 104 Hemoglobin has been stable for the last 24hrs Plan: - continue to monitor H&H - heme onc consulted, appreciate recommendations (13) Deep venous thrombosis of left upper extremity Current Visit: Yes Status: Acute Assessment and Plan: Pt has been reporting LUE pain -US ordered 04/14 revealed DVT in the left brachial and radial veins of the LUE Plan: - heparin drip was held - consult heme onc - H&H pending (14) Pneumonia Current Visit: Yes Status: Suspected Assessment and Plan: Pt has been having temperature spikes, overnight t max was 100.5 - WBC 04/18: 11.5 - CXR on 04/14/18 showed bilateral effusions with bibasilar airspace disease - CT scan of chest showed Mod/large right pleural effusion, mod left pleural effusion w/ adjacent ate lectasis or pneumonia at the bases Pulmonary vascular congestion - Blood cx showed g(+) cocci Plan: - continue vancomycin day 13, Zosyn day 8 - ID following - pt is getting Lasix 20mg IVP BID for pulmonary vascular congestion; will not perform thoracentesis as per pulmonology unless breathing status deteroirates Pulmonology signed off - follow cbc/cmp (15) Acute respiratory failure Current Visit: Yes Status: Resolved Assessment and Plan: See plan as above for pneumonia. - 94% NC (16) Thrombocytosis Current Visit: Yes Status: Acute Assessment and Plan: Plt count 757 - 04/20: 866 - 04/19: 755 today. 04/18: 662 - maybe reactive 2/2 sx - Time Spent with Patient Total time spent is greater than 50% in coordination of care (as documented) at patient's floor/unit and/or counseling patient: less than 15 minutes Plan of Care Discussed with: patient Internal Medicine: Result - Labs CBC & Chem 7: 04/22/18 04:41 04/22/18 04:41 Labs: Short CBC 04/21/18 04/21/18 04/22/18 Range/Units 09:50 21:30 04:41 WBC 8.8 (4.3-11.1) K/mcL Hgb 9.2 L 8.5 L 8.7 L (11.5-15.4) g/dL Hct 27.7 L 25.6 L 26.1 L (35.3-44.9) % Plt Count 757 H (140-400) K/mcL Neutrophils # 6.9 (1.6-8.9) K/mcL BMP 04/22/18 04/22/18 04:41 04:41 Sodium 133 L 132 L Potassium 3.4 L 3.4 L Chloride 94 L 95 L Carbon Dioxide 32 H 32 H BUN 12 12 Creatinine 0.35 L 0.37 L Glucose 85 85 Calcium 7.9 L 8.1 L Liver Function 04/22/18 Range/Units 04:41 Total Bilirubin 0.5 (0.3-1.0) mg/dL AST 22 (13-39) Units/L ALT 11 (7-52) Units/L Alkaline Phosphatase 163 H (34-104) Units/L Albumin 1.8 L (3.5-5.7) g/dL - ABG Interpretation ABG results: PT/INR, D-dimer PT 13.1 Seconds (9.4-12.1) H 04/19/18 05:05 D-Dimer 5840 ng/mLFEU (0-500) H 04/10/18 11:00 - Impressions Impressions Chest X-Ray 04/21/18 09:37 IMPRESSION: Moderate-sized pleural effusion seen on the lateral radiograph, possibly bilaterally. Bibasilar atelectasis. Mild pulmonary edema. D/ / Elsy Ramos MD / Elsy Ramos MD Interpreting Provider: Elsy Ramos MD Consult Discharge Plan - Plan Referrals: Misael Lopez MD [Non-Partnered Physician] - (Patient is going to rehab no PCP appointment needed) <Simone Chapman - Last Filed: 04/22/18 13:51> Hospitalist Progress Note - Encounter Time of Encounter: 10:25 - Exam Vitals: Temp Pulse Resp BP Pulse Ox 98.9 F 86 18 110/70 98 04/22/18 12:11 04/22/18 12:11 04/22/18 12:11 04/22/18 12:11 04/22/18 12:11 - Assessment and Plan (1) Shoulder subluxation, left Current Visit: Yes Status: Acute (2) Arthritis of right knee Current Visit: Yes Status: Acute (3) Type 1 diabetes Current Visit: Yes Status: Deleted (4) Hyponatremia Current Visit: Yes Status: Deleted (5) Abnormal TSH Current Visit: Yes Status: Deleted (6) DVT prophylaxis Current Visit: Yes Status: Acute (7) Calcium pyrophosphate arthropathy Current Visit: Yes Status: Deleted (8) Atrial fibrillation with RVR Current Visit: Yes Status: Resolved (9) Sepsis Current Visit: Yes Status: Resolved (10) Bacteremia Current Visit: Yes Status: Acute (11) Hypokalemia Current Visit: Yes Status: Deleted (12) Anemia Current Visit: Yes Status: Acute (13) Deep venous thrombosis of left upper extremity Current Visit: Yes Status: Acute (14) Pneumonia Current Visit: Yes Status: Suspected (15) Acute respiratory failure Current Visit: Yes Status: Resolved (16) Thrombocytosis Current Visit: Yes Status: Acute - Time Spent with Patient Total time spent is greater than 50% in coordination of care (as documented) at patient's floor/unit and/or counseling patient: Internal Medicine: Result - Labs CBC & Chem 7: 04/22/18 04:41 04/22/18 04:41 Labs: Short CBC 04/21/18 04/22/18 Range/Units 21:30 04:41 WBC 8.8 (4.3-11.1) K/mcL Hgb 8.5 L 8.7 L (11.5-15.4) g/dL Hct 25.6 L 26.1 L (35.3-44.9) % Plt Count 757 H (140-400) K/mcL Neutrophils # 6.9 (1.6-8.9) K/mcL BMP 04/22/18 04/22/18 04:41 04:41 Sodium 133 L 132 L Potassium 3.4 L 3.4 L Chloride 94 L 95 L Carbon Dioxide 32 H 32 H BUN 12 12 Creatinine 0.35 L 0.37 L Glucose 85 85 Calcium 7.9 L 8.1 L Liver Function 04/22/18 Range/Units 04:41 Total Bilirubin 0.5 (0.3-1.0) mg/dL AST 22 (13-39) Units/L ALT 11 (7-52) Units/L Alkaline Phosphatase 163 H (34-104) Units/L Albumin 1.8 L (3.5-5.7) g/dL - ABG Interpretation ABG results: PT/INR, D-dimer PT 13.1 Seconds (9.4-12.1) H 04/19/18 05:05 D-Dimer 5840 ng/mLFEU (0-500) H 04/10/18 11:00 - Attending Attestation Patient continues to have joint pains. Patient did have fever with temperature 100.3 this morning. Denies any chills or night sweats. No nausea or vomiting. Patient is currently awaiting transfer to [facility] in [place] for higher level of care. On exam, patient is awake and alert. Heart sounds are normal. Breath sounds are normal. Tenderness present over the joints. No focal deficits on neuro exam. Abdomen is soft, nontender. Sepsis with MRSA bacteremia from septic arthritis-disseminated. On intravenous antibiotics per infectious disease recommendations-daptomycin and vancomycin. Zosyn has now been stopped. Repeat blood cultures from today are currently pending. Left shoulder subluxation: Continue supportive care. Continue PTOT has tolerated. Diabetes mellitus : Continue sliding scale insulin. Patient did have an episode of hypoglycemia this morning. We will decrease long-acting insulin dosage to 10 units at bedtime. Also change sliding scale coverage to medium correctional dosage. Continue ADA diet. Pneumonia: Likely related to underlying sepsis. Patient receiving daptomycin and vancomycin. Acute respiratory failure: With hypoxia: Improving. Continue O2 supplementation as needed. Deep Vein thrombosis of the left upper extremity: Heparin has been held due to anemia. Patient did receive Lovenox last night. We will discuss with hematology about further management. Anemia: Stabilized. Hemoglobin 8.7 today. We will continue to monitor closely. High risk for complications. ___ <OneilLevar S - Last Filed: 04/22/18 10:53> (1) Sepsis Qualifiers: Sepsis type: sepsis due to unspecified organism Qualified Code(s): A41.9 - Sepsis, unspecified organism (2) Shoulder subluxation, left Qualifiers: Encounter type: initial encounter Qualified Code(s): S43.002A - Unspecified subluxation of left shoulder joint, initial encounter (4) Type 1 diabetes Qualifiers: Diabetes mellitus complication status: with unspecified complications Qualified Code(s): E10.8 - Type 1 diabetes mellitus with unspecified complications (12) Anemia Qualifiers: Anemia type: unspecified type Qualified Code(s): D64.9 - Anemia, unspecified (13) Deep venous thrombosis of left upper extremity Qualifiers: Affected thrombotic vein of extremity: brachial Chronicity: acute Qualified Code(s): I82.622 - Acute embolism and thrombosis of deep veins of left upper extremity (14) Pneumonia Qualifiers: Pneumonia type: due to unspecified organism Laterality: bilateral Lung location: unspecified part of lung Qualified Code(s): J18.9 - Pneumonia, unspecified organism (15) Acute respiratory failure Qualifiers: Respiratory failure complication: hypoxia Qualified Code(s): J96.01 - Acute respiratory failure with hypoxia <Simone Chapman - Last Filed: 04/22/18 13:51> (1) Shoulder subluxation, left Qualifiers: Encounter type: initial encounter Qualified Code(s): S43.002A - Unspecified subluxation of left shoulder joint, initial encounter (3) Type 1 diabetes Qualifiers: Diabetes mellitus complication status: with unspecified complications Qualified Code(s): E10.8 - Type 1 diabetes mellitus with unspecified complications (9) Sepsis Qualifiers: Sepsis type: sepsis due to unspecified organism Qualified Code(s): A41.9 - Sepsis, unspecified organism (12) Anemia Qualifiers: Anemia type: unspecified type Qualified Code(s): D64.9 - Anemia, unspecified (13) Deep venous thrombosis of left upper extremity Qualifiers: Affected thrombotic vein of extremity: brachial Chronicity: acute Qualified Code(s): I82.622 - Acute embolism and thrombosis of deep veins of left upper extremity (14) Pneumonia Qualifiers: Pneumonia type: due to unspecified organism Laterality: bilateral Lung location: unspecified part of lung Qualified Code(s): J18.9 - Pneumonia, unspecified organism (15) Acute respiratory failure Qualifiers: Respiratory failure complication: hypoxia Qualified Code(s): J96.01 - Acute respiratory failure with hypoxia
[2018-04-22] MEDS: Multivit/Ca/Min/Fe/FA 1 TAB TABLET PO SCH (08:51)
[2018-04-22] MEDS: traMADol 50 MG TABLET PO SCH (08:51)
[2018-04-22] MEDS: Ascorbic Acid 500 MG TABLET PO SCH ×2 (08:51→19:41)
[2018-04-22] MEDS: Sennosides/Docusate Sodium TABLET PO SCH ×2 (08:51→19:34)
[2018-04-22] MEDS: Metoprolol XL (24 HR) Succ 25 MG TAB.ER.24H PO SCH (08:52)
[2018-04-22] MEDS: Furosemide 20 MG/2 ML VIAL IVP SCH ×2 (08:52→16:51)
[2018-04-22] MEDS: Stomatitis Mixture 5 ML UDC PO SCH ×4 (08:52→19:42)
[2018-04-22] MEDS: Nystatin SUSP 5 ML UD.LIQ PO SCH ×4 (08:53→19:42)
[2018-04-22] MEDS ORDERED: [UNRECOGNIZED DRUG - OTHER] PO SCH (11:00)
--- NOTE | 2018-04-22 11:16 | Infectious Disease Progress No ---
Date of Encounter: 04/22/18 Time of Encounter: 11:14 - Assessment and Plan (1) Sepsis Status: Resolved The patient had 2 sepsis criteria plus altered mental status. Likely secondary to bacteremia and right knee septic arthritis. Improved. WBC normalized Tachycardia resolved. Tmax 100.3 in the past 24 hours. Blood cultures drawn 04/10/18 are +2 out of 2 sets for MRSA. Repeat blood cultures drawn 04/13/18 are positive 2/2 sets. Additional blood cultures drawn 04/14/18 are positive 2/2 sets. Repeat blood cultures drawn 04/16/18 are positive 2/2 sets. Repeat blood cultures drawn 04/19/18 are positive 1/2 sets. Repeat blood cultures drawn 04/22/18 are pending x 2 sets. Qualifiers: Sepsis type: sepsis due to unspecified organism Qualified Code(s): A41.9 - Sepsis, unspecified organism (2) Bacteremia Status: Acute Causative organism: MRSA. Source: Right knee septic arthritis. Concern for additional source given the patient's persistent joint pain and persistently positive blood cultures. Blood cultures drawn 04/10/18 are +2 out of 2 sets. Repeat blood cultures drawn 04/13/18 are positive 2/2 sets. Additional cultures drawn 04/14/18 are positive 2/2 sets. Repeat blood cultures drawn 04/16/18 are positive 2/2 sets. Repeat blood cultures drawn 04/19/18 are positive 2/2 sets. Complicated due to the presence of septic arthritis of the bilateral knees and persistent bacteremia. The patient has no indwelling hardware or pacemaker. The patient has one major and one minor Modified Fisher criteria. She does not have any endocarditis stigmata noted on exam. Transthoracic echocardiogram negative for vegetations. Get IDALIA prior to discharge. Check rheumatoid factor.--> <10. Repeat blood cultures x 2 sets drawn 04/22/18 are pending. Continue vancomycin IV. Pharmacy to dose. Goal trough proximally 15. Vanc trough 04/20/18 18. Continue Daptomycin 8mg/kg IV daily. (day 6) Check baseline CK level. --> 11. Duration of treatment depends on the clinical picture, but likely 4-6 weeks. Monitor renal function for drug toxicity and dose adjust antibiotics. Continue contact precautions per hospital policy. Avoid insertion of long-term IV access until repeat blood cultures are negative x 48 hours. Further OPAT recommendations to follow pending clinical and culture outcomes. (3) Septic arthritis of knee, left Status: Acute Location: LEft knee Causative organism: MRSA Status post bedside arthrocentesis that revealed cloudy purulent fluid. Cell count TNC 4400 with 76% neutrophils. Cultures positive for MRSA. Orthopedics consulted. Status post arthroscopic I & D 04/18/[address] Fournier. Operative note reviewed. Cultures as above. Continue antibiotics as stated above. Duration of treatment and clinical picture, but likely 4 weeks of IV antibiotics. Monitor renal function for drug toxicity and does just antibiotics. Wound care and activity restrictions per the ortho team. Qualifiers: Septic arthritis organism: staphylococcal Qualified Code(s): M00.062 - Staphylococcal arthritis, left knee (4) Septic arthritis of knee, right Status: Acute Location: Right knee. Causative organism: MRSA MRI of the right knee showed a moderate joint effusion. The sterility of joint fluid was indeterminate on imaging and an infectious process could not be excluded. Rheumatology consult and following. Status post bedside arthrocentesis that revealed cloudy purulent fluid. Cell count with differential could not be performed due to the viscosity of the specimen. Orthopedics consulted. Status post arthroscopic I & D 04/11/[address] Fournier. Operative note reviewed. Pus noted intra-op. Cultures as above. Continue antibiotics as stated above. Duration of treatment and clinical picture, but likely 4 weeks of IV antibiotics. Monitor renal function for drug toxicity and does just antibiotics. Wound care and activity restrictions per the ortho team. Qualifiers: Septic arthritis organism: staphylococcal Qualified Code(s): M00.061 - Staphylococcal arthritis, right knee (5) Pleural effusion Status: Acute Location: Bilateral. CT of the chest showed moderate to large right and moderate left pleural effusion with adjacent atelectasis and/or pneumonia notable at lung bases. Etiology unclear: reactive vs. infectious vs. other. Pulmonology consulted. Appreciate recommendations. Repeat CXR 04/21/18 showed moderate bilateral pleural effusions and bibasilar atelectasis. (6) Pneumonia Status: Suspected Location: Bilateral bases. Causative organism: Unclear. CXR showed bilateral pleural effusions with bibasilar airspace disease, likely PNA. CT of the chest showed moderte to large right pleural effusion and moderate left pleural effusion with adjacent atelectasis and/or pneumonia notable at lung bases. Recommend pulmonary to evaluate. Check RIP.--> negative. Check S. pneumo and Legionella UATs.--> negative. Repeat CXR 04/21/18 negative for PNA. Discontinue Zosyn (day 8). Qualifiers: Pneumonia type: due to unspecified organism Laterality: bilateral Lung location: unspecified part of lung Qualified Code(s): J18.9 - Pneumonia, unspecified organism (7) Altered mental status Status: Resolved Likely secondary to sepsis. Improved. Continue to monitor closely. Qualifiers: Altered mental status type: unspecified Qualified Code(s): R41.82 - Altered mental status, unspecified (8) Shoulder subluxation, left Status: Acute Noted on imaging. IR consulted and aspiration of the joint unsuccessful. Patient reports pain is improved. Orthopedics consulted. 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 Plan to follow up as outpatient. (11) Atrial fibrillation with RVR Status: Resolved Liquids secondary to sepsis. Cardiology consulted and signed off. Rate controlled. (12) Oral lesion Status: Acute Clinically, does not appear to be thrush. HSV PCR positive. Treated with Valacyclovir 2 grams PO Q12H x 1 day. Continue magic mouthwash with lidocaine. (13) Joint pain Status: Acute Location: bilateral knees. Likely secondary to septic arthritis. Recommendations as above. Qualifiers: Joint pain location: knee Laterality: left Qualified Code(s): M25.562 - Pain in left knee (14) Thrombocytosis Status: Acute Etiology unclear: sepsis vs. other. Hem/Onc consulted and following. (15) Back pain Status: Acute Etiology unclear: infection vs. acute exacerbation of chronic pain. Given the patient's persistent bacteremia, concern for seeding of the spine. Patient declines adequate evaluation due to pain with movement. If the patient does not get a bed at [facility] today, will need to consider MRI to rule out infectious etiology. Pain management per the primary team. Qualifiers: Back pain location: low back pain Chronicity: acute Back pain laterality: midline Sciatica presence: without sciatica Qualified Code(s): M54.5 - Low back pain - Subjective Interval history: Patient seen and examined with family at the bedside. No acute events noted overnight. POD #11 for right knee washout. POD #4 for left knee washout. Patient states overall she feels a little better today. She reports pain in the lower back/butt at this time. Shortness of breath has improved. Denies chest pain or cough. She denies vomiting or diarrhea, but reports some nausea this morning. Denies abdominal pain. Appetite is okay. Donohue catheter remains patent. Denies new skin rashes. Oral lesions improved. Last BM several days ago. Infect Dis PN-Objective Data - Labs CBC & Chem 7: 04/22/18 04:41 04/22/18 04:41 Labs: Laboratory Results - last 24 hr 04/19/18 04/21/18 04/21/18 18:45 15:49 19:49 WBC RBC Hgb Hct MCV MCH MCHC RDW Plt Count MPV Immature Gran % Seg Neutrophils % Lymphocytes % Monocytes % Eosinophils % Basophils % Neutrophils # Lymphocytes # Monocytes # Eosinophils # Basophils # Smear Path Review Fibrinogen Sodium Potassium Chloride Carbon Dioxide BUN Creatinine Est GFR ( Amer) Est GFR (Non-Af Amer) BUN/Creatinine Ratio Glucose POC Glucose 162 H 254 H Calculated Osmolality Calcium Ferritin Total Bilirubin AST ALT Alkaline Phosphatase Lactate Dehydrogenase Serum Total Protein Albumin Globulin Albumin/Globulin Ratio Specimen Rejected Volume 04/21/18 04/22/18 04/22/18 21:30 04:41 04:41 WBC 8.8 RBC 2.96 L Hgb 8.5 L 8.7 L Hct 25.6 L 26.1 L MCV 88.2 MCH 29.4 MCHC 33.3 RDW 14.9 H Plt Count 757 H MPV 9.2 L Immature Gran % 0.8 Seg Neutrophils % 78.4 Lymphocytes % 13.2 Monocytes % 5.5 Eosinophils % 1.5 Basophils % 0.6 Neutrophils # 6.9 Lymphocytes # 1.2 Monocytes # 0.5 Eosinophils # 0.1 Basophils # 0.1 Smear Path Review Fibrinogen Sodium 133 L Potassium 3.4 L Chloride 94 L Carbon Dioxide 32 H BUN 12 Creatinine 0.35 L Est GFR ( Amer) > 60 Est GFR (Non-Af Amer) > 60 BUN/Creatinine Ratio 34 H Glucose 85 POC Glucose Calculated Osmolality 275 L Calcium 7.9 L Ferritin Total Bilirubin AST ALT Alkaline Phosphatase Lactate Dehydrogenase Serum Total Protein Albumin Globulin Albumin/Globulin Ratio Specimen Rejected 04/22/18 04/22/1804/22/18 04:41 04:41 04:41 WBC RBC Hgb Hct MCV MCH MCHC RDW Plt Count MPV Immature Gran % Seg Neutrophils % Lymphocytes % Monocytes % Eosinophils % Basophils % Neutrophils # Lymphocytes # Monocytes # Eosinophils # Basophils # Smear Path Review See Below Fibrinogen 549 H Sodium 132 L Potassium 3.4 L Chloride 95 L Carbon Dioxide 32 H BUN 12 Creatinine 0.37 L Est GFR ( Amer) > 60 Est GFR (Non-Af Amer) > 60 BUN/Creatinine Ratio 32 H Glucose 85 POC Glucose Calculated Osmolality 273 L Calcium 8.1 L Ferritin Total Bilirubin 0.5 AST 22 ALT 11 Alkaline Phosphatase 163 H Lactate Dehydrogenase Serum Total Protein 5.1 L Albumin 1.8 L Globulin 3.3 Albumin/Globulin Ratio 0.5 L Specimen Rejected 04/22/18 04:41 WBC RBC Hgb Hct MCV MCH MCHC RDW Plt Count MPV Immature Gran % Seg Neutrophils % Lymphocytes % Monocytes % Eosinophils % Basophils % Neutrophils # Lymphocytes # Monocytes # Eosinophils # Basophils # Smear Path Review Fibrinogen Sodium Potassium Chloride Carbon Dioxide BUN Creatinine Est GFR ( Amer) Est GFR (Non-Af Amer) BUN/Creatinine Ratio Glucose POC Glucose Calculated Osmolality Calcium Ferritin 470 H Total Bilirubin AST ALT Alkaline Phosphatase Lactate Dehydrogenase 122 L Serum Total Protein Albumin Globulin Albumin/Globulin Ratio Specimen Rejected Cultures: Cultures 04/18/18 20:31 Anaerobic Culture - Preliminary Left Knee At this time, no anaerobic growth is present. The culture will be finalized after 5 days of incubation. 04/18/18 20:31 Anaerobic Culture - Preliminary Right Knee At this time, no anaerobic growth is present. The culture will be finalized after 5 days of incubation. 04/19/18 09:29 Blood Culture - Final Peripheral Venipuncture Methicillin Resistant S.aureus 04/22/18 04:42 Blood Culture - Preliminary Peripheral Venipuncture Culture is incubating and being continuously monitored for growth. Final report to follow. 04/22/18 04:41 Blood Culture - Preliminary Peripheral Venipuncture Culture is incubating and being continuously monitored for growth. Final report to follow. 04/17/18 19:23 Anaerobic Culture - Preliminary Left Knee At this time, no anaerobic growth is present. The culture will be finalized after 5 days of incubation. 04/18/18 20:31 Wound Culture - Final Right Knee Methicillin Resistant S.aureus 04/18/18 20:31 Wound Culture - Final Left Knee Methicillin Resistant S.aureus 04/19/18 09:29 Blood Culture - Final Peripheral Venipuncture Methicillin Resistant S.aureus 04/17/18 19:23 Body Fluid Culture - Final Synovial Fluid Methicillin Resistant S.aureus 04/13/18 05:34 Blood Culture - Final Peripheral Venipuncture Methicillin Resistant S.aureus 04/16/18 01:28 Blood Culture - Final Peripheral Venipuncture Methicillin Resistant S.aureus 04/16/18 01:28 Blood Culture - Final Peripheral Venipuncture Methicillin Resistant S.aureus 04/11/18 18:25 Anaerobic Culture - Final Right Knee No anaerobes were recovered. 04/14/18 04:20 Blood Culture - Final Peripheral Venipuncture Methicillin Resistant S.aureus 04/14/18 04:20 Blood Culture - Final Peripheral Venipuncture Methicillin Resistant S.aureus 04/15/18 16:15 Legionella Antigen - Final Urine,Clean Catch Streptococcus pneumoniae Antigen (M - Final 04/13/18 05:46 Blood Culture - Final Peripheral Venipuncture Methicillin Resistant S.aureus 04/11/18 18:25 Wound Culture - Final Right Knee Methicillin Resistant S.aureus 04/10/18 11:00 Blood Culture - Final Peripheral Venipuncture Methicillin Resistant S.aureus 04/10/18 11:10 Blood Culture - Final Peripheral Venipuncture Methicillin Resistant S.aureus 04/09/18 12:30 Body Fluid Culture - Final Synovial Fluid Methicillin Resistant S.aureus Serology 04/19/18 04/17/18 04/16/18 Range/Units 09:29 19:23 10:40 Ur Specimen Adequacy Urine Color (Yellow) Urine Clarity (Clear) Urine pH (5.0-8.0) pH Units Ur Specific [place] (1.010-1.025) Urine Protein (Neg-Trace) mg/dL Urine Glucose (UA) (Normal) mg/dL Urine Ketones (Negative) mg/dL Urine Blood (Negative) Urine Nitrite (Negative) Urine Bilirubin (Negative) Urine Urobilinogen (Normal) mg/dL Ur Leukocyte Esterase (Negative) Urine Microscopic RBC (0-3) per hpf Urine Microscopic WBC (0-3) per hpf Ur Squamous Epith Cells (None-Few) per lpf Urine Bacteria (None-Few) per hpf Hyaline Casts Ur Culture Indicated? (NO) Urine Osmolality (300-1090) mOsm/kg Urine Sodium mEq/L Fluid Crystals (None Seen) Synovial Source left knee Synovial Color Julianne (Straw) Synovial Appearance Hazy (Clear-Hazy) Synovial Volume Test Not Performed mL Synovial RBC 0.250 H Synovial Tot Nuc Cell 4770 H Synovial Band Neuts Test Not Performed Synovial Basophils Test Not Performed Synovial Eosinophils Test Not Performed Synovial Seg Neuts % 76.0 % Synovial Lymphocytes % 22.0 % Synovial Monocytes % Test Not Performed % Synovial Other Cells % 2.0 Synovial Crystals No Crystals Seen (None Seen) A. baumannii (PCR) Not Detected (Not Detect) Chlamy pneumoniae PCR (Not Detect) Adenovirus (PCR) (Not Detect) B. pertussis DNA (PCR) (Not Detect) B.parapertussis DNA PCR (Not Detect) Kirti albicans (PCR) Not Detected (Not Detect) C. glabrata (PCR) Not Detected (Not Detect) C. krusei (PCR) Not Detected (Not Detect) C. parapsilosis (PCR) Not Detected (Not Detect) C. tropicalis (PCR) Not Detected (Not Detect) Coronavirus OC43 (PCR) (Not Detect) Coronavirus HKU1 (PCR) (Not Detect) Coronavirus 229E (PCR) (Not Detect) Coronavirus NL63 (PCR) (Not Detect) Enterobacteriac sp PCR Not Detected (Not Detect) E. cloacae complex PCR Not Detected (Not Detect) Enterococcus sp PCR Not Detected (Not Detect) E. coli (PCR) Not Detected (Not Detect) H. influenzae (PCR) Not Detected (Not Detect) Herpes Simplex Source [place] HSV I DETECTED A (Not Detect) HSV II Not Detected (Not Detect) Human Metapneumovir PCR (Not Detect) Influenza A (H1) PCR (Not Detect) Influ A (H1N1/09) PCR (Not Detect) Influenza A (H3) PCR (Not Detect) Influenza A Untype (PCR) (Not Detect) Influenza Type B (PCR) (Not Detect) Klebsiella oxytoca PCR Not Detected (Not Detect) Klebsiella pneumoniae Not Detected (Not Detect) List. monocytogenes PCR Not Detected (Not Detect) M.pneumoniae DNA (PCR) (Not Detect) N. meningitidis (PCR) Not Detected (Not Detect) Parainfluenza 1 (PCR) (Not Detect) Parainfluenza 2 (PCR) (Not Detect) Parainfluenza 3 (PCR) (Not Detect) Parainfluenza 4 (PCR) (Not Detect) Proteus species (PCR) Not Detected (Not Detect) RSV (PCR) (Not Detect) Entero/Rhino (PCR) (Not Detect) Serratia marcescens PCR Not Detected (Not Detect) Staphylococcus sp PCR DETECTED A (Not Detect) Staph aureus (PCR) DETECTED A (Not Detect) mecA-Methicil Res Gene DETECTED A (Not Detect) Streptococcus sp PCR Not Detected (Not Detect) Group A Strep DNA Not Detected (Not Detect) Group B Strep (PCR) Not Detected (Not Detect) Strep pneumoniae (PCR) Not Detected (Not Detect) P. aeruginosa (PCR) Not Detected (Not Detect) Ivory/B-Vanco Res Genes Not Detected (Not Detect) KPC (blaKPC) Detect PCR Not Detected (Not Detect) 04/16/18 04/15/18 04/13/18 Range/Units 01:28 16:12 05:46 Ur Specimen Adequacy Urine Color (Yellow) Urine Clarity (Clear) Urine pH (5.0-8.0) pH Units Ur Specific [place] (1.010-1.025) Urine Protein (Neg-Trace) mg/dL Urine Glucose (UA) (Normal) mg/dL Urine Ketones (Negative) mg/dL Urine Blood (Negative) Urine Nitrite (Negative) Urine Bilirubin (Negative) Urine Urobilinogen (Normal) mg/dL Ur Leukocyte Esterase (Negative) Urine Microscopic RBC (0-3) per hpf Urine Microscopic WBC (0-3) per hpf Ur Squamous Epith Cells (None-Few) per lpf Urine Bacteria (None-Few) per hpf Hyaline Casts Ur Culture Indicated? (NO) Urine Osmolality (300-1090) mOsm/kg Urine Sodium mEq/L Fluid Crystals (None Seen) Synovial Source Synovial Color (Straw) Synovial Appearance (Clear-Hazy) Synovial Volume mL Synovial RBC Synovial Tot Nuc Cell Synovial Band Neuts Synovial Basophils Synovial Eosinophils Synovial Seg Neuts % % Synovial Lymphocytes % % Synovial Monocytes % % Synovial Other Cells % Synovial Crystals (None Seen) A. baumannii (PCR) Not Detected Not Detected (Not Detect) Chlamy pneumoniae PCR Not Detected (Not Detect) Adenovirus (PCR) Not Detected (Not Detect) B. pertussis DNA (PCR) Not Detected (Not Detect) B.parapertussis DNA PCR Not Detected (Not Detect) Kirti albicans (PCR) Not Detected Not Detected (Not Detect) C. glabrata (PCR) Not Detected Not Detected (Not Detect) C. krusei (PCR) Not Detected Not Detected (Not Detect) C. parapsilosis (PCR) Not Detected Not Detected (Not Detect) C. tropicalis (PCR) Not Detected Not Detected (Not Detect) Coronavirus OC43 (PCR) Not Detected (Not Detect) Coronavirus HKU1 (PCR) Not Detected (Not Detect) Coronavirus 229E (PCR) Not Detected (Not Detect) Coronavirus NL63 (PCR) Not Detected (Not Detect) Enterobacteriac sp PCR Not Detected Not Detected (Not Detect) E. cloacae complex PCR Not Detected Not Detected (Not Detect) Enterococcus sp PCR Not Detected Not Detected (Not Detect) E. coli (PCR) Not Detected Not Detected (Not Detect) H. influenzae (PCR) Not Detected Not Detected (Not Detect) Herpes Simplex Source HSV I (Not Detect) HSV II (Not Detect) Human Metapneumovir PCR Not Detected (Not Detect) Influenza A (H1) PCR Not Detected (Not Detect) Influ A (H1N1/09) PCR Not Detected (Not Detect) Influenza A (H3) PCR Not Detected (Not Detect) Influenza A Untype (PCR) Not Detected (Not Detect) Influenza Type B (PCR) Not Detected (Not Detect) Klebsiella oxytoca PCR Not Detected Not Detected (Not Detect) Klebsiella pneumoniae Not Detected Not Detected (Not Detect) List. monocytogenes PCR Not Detected Not Detected (Not Detect) M.pneumoniae DNA (PCR) Not Detected (Not Detect) N. meningitidis (PCR) Not Detected Not Detected (Not Detect) Parainfluenza 1 (PCR) Not Detected (Not Detect) Parainfluenza 2 (PCR) Not Detected (Not Detect) Parainfluenza 3 (PCR) Not Detected (Not Detect) Parainfluenza 4 (PCR) Not Detected (Not Detect) Proteus species (PCR) Not Detected Not Detected (Not Detect) RSV (PCR) Not Detected (Not Detect) Entero/Rhino (PCR) Not Detected (Not Detect) Serratia marcescens PCR Not Detected Not Detected (Not Detect) Staphylococcus sp PCR DETECTED A DETECTED A (Not Detect) Staph aureus (PCR) DETECTED A DETECTED A (Not Detect) mecA-Methicil Res Gene DETECTED A DETECTED A (Not Detect) Streptococcus sp PCR Not Detected Not Detected (Not Detect) Group A Strep DNA Not Detected Not Detected (Not Detect) Group B Strep (PCR) Not Detected Not Detected (Not Detect) Strep pneumoniae (PCR) Not Detected Not Detected (Not Detect) P. aeruginosa (PCR) Not Detected Not Detected (Not Detect) Ivory/B-Vanco Res Genes Not Detected N/A (Not Detect) KPC (blaKPC) Detect PCR Not Detected N/A (Not Detect) 04/10/18 04/10/18 04/10/18 Range/Units 16:41 16:41 11:10 Ur Specimen Adequacy Urine Color (Yellow) Urine Clarity (Clear) Urine pH (5.0-8.0) pH Units Ur Specific [place] (1.010-1.025) Urine Protein (Neg-Trace) mg/dL Urine Glucose (UA) (Normal) mg/dL Urine Ketones (Negative) mg/dL Urine Blood (Negative) Urine Nitrite (Negative) Urine Bilirubin (Negative) Urine Urobilinogen (Normal) mg/dL Ur Leukocyte Esterase (Negative) Urine Microscopic RBC (0-3) per hpf Urine Microscopic WBC (0-3) per hpf Ur Squamous Epith Cells (None-Few) per lpf Urine Bacteria (None-Few) per hpf Hyaline Casts Ur Culture Indicated? (NO) Urine Osmolality 407 (300-1090) mOsm/kg Urine Sodium 21.3 mEq/L Fluid Crystals (None Seen) Synovial Source Synovial Color (Straw) Synovial Appearance (Clear-Hazy) Synovial Volume mL Synovial RBC Synovial Tot Nuc Cell Synovial Band Neuts Synovial Basophils Synovial Eosinophils Synovial Seg Neuts % % Synovial Lymphocytes % % Synovial Monocytes % % Synovial Other Cells % Synovial Crystals (None Seen) A. baumannii (PCR) Not Detected (Not Detect) Chlamy pneumoniae PCR (Not Detect) Adenovirus (PCR) (Not Detect) B. pertussis DNA (PCR) (Not Detect) B.parapertussis DNA PCR (Not Detect) Kirti albicans (PCR) Not Detected (Not Detect) C. glabrata (PCR) Not Detected (Not Detect) C. krusei (PCR) Not Detected (Not Detect) C. parapsilosis (PCR) Not Detected (Not Detect) C. tropicalis (PCR) Not Detected (Not Detect) Coronavirus OC43 (PCR) (Not Detect) Coronavirus HKU1 (PCR) (Not Detect) Coronavirus 229E (PCR) (Not Detect) Coronavirus NL63 (PCR) (Not Detect) Enterobacteriac sp PCR Not Detected (Not Detect) E. cloacae complex PCR Not Detected (Not Detect) Enterococcus sp PCR Not Detected (Not Detect) E. coli (PCR) Not Detected (Not Detect) H. influenzae (PCR) Not Detected (Not Detect) Herpes Simplex Source HSV I (Not Detect) HSV II (Not Detect) Human Metapneumovir PCR (Not Detect) Influenza A (H1) PCR (Not Detect) Influ A (H1N1/09) PCR (Not Detect) Influenza A (H3) PCR (Not Detect) Influenza A Untype (PCR) (Not Detect) Influenza Type B (PCR) (Not Detect) Klebsiella oxytoca PCR Not Detected (Not Detect) Klebsiella pneumoniae Not Detected (Not Detect) List. monocytogenes PCR Not Detected (Not Detect) M.pneumoniae DNA (PCR) (Not Detect) N. meningitidis (PCR) Not Detected (Not Detect) Parainfluenza 1 (PCR) (Not Detect) Parainfluenza 2 (PCR) (Not Detect) Parainfluenza 3 (PCR) (Not Detect) Parainfluenza 4 (PCR) (Not Detect) Proteus species (PCR) Not Detected (Not Detect) RSV (PCR) (Not Detect) Entero/Rhino (PCR) (Not Detect) Serratia marcescens PCR Not Detected (Not Detect) Staphylococcus sp PCR DETECTED A (Not Detect) Staph aureus (PCR) DETECTED A (Not Detect) mecA-Methicil Res Gene DETECTED A (Not Detect) Streptococcus sp PCR Not Detected (Not Detect) Group A Strep DNA Not Detected (Not Detect) Group B Strep (PCR) Not Detected (Not Detect) Strep pneumoniae (PCR) Not Detected (Not Detect) P. aeruginosa (PCR) Not Detected (Not Detect) Ivory/B-Vanco Res Genes N/A (Not Detect) KPC (blaKPC) Detect PCR N/A (Not Detect) 04/09/18 04/09/18 04/06/18 Range/Units 12:30 12:30 11:55 Ur Specimen Adequacy See below A Urine Color Yellow (Yellow) Urine Clarity Clear (Clear) Urine pH 5.5 (5.0-8.0) pH Units Ur Specific [place] 1.014 (1.010-1.025) Urine Protein 30 H (Neg-Trace) mg/dL Urine Glucose (UA) 250 H (Normal) mg/dL Urine Ketones Negative (Negative) mg/dL Urine Blood Small H (Negative) Urine Nitrite Negative (Negative) Urine Bilirubin Negative (Negative) Urine Urobilinogen Normal (Normal) mg/dL Ur Leukocyte Esterase Negative (Negative) Urine Microscopic RBC 5-15 H (0-3) per hpf Urine Microscopic WBC 0-3 (0-3) per hpf Ur Squamous Epith Cells Many H (None-Few) per lpf Urine Bacteria None Seen (None-Few) per hpf Hyaline Casts Test Not Performed Ur Culture Indicated? NO (NO) Urine Osmolality (300-1090) mOsm/kg Urine Sodium mEq/L Fluid Crystals CPPD Crystals Seen A (None Seen) Synovial Source RIGHT KNEE Synovial Color Straw (Straw) Synovial Appearance Cloudy A (Clear-Hazy) Synovial Volume 8.0 mL Synovial RBC TNP Synovial Tot Nuc Cell TNP Synovial Band Neuts Test Not Performed Synovial Basophils Test Not Performed Synovial Eosinophils Test Not Performed Synovial Seg Neuts % 2.0 % Synovial Lymphocytes % 84.0 % Synovial Monocytes % 14.0 % Synovial Other Cells % Test Not Performed Synovial Crystals (None Seen) A. baumannii (PCR) (Not Detect) Chlamy pneumoniae PCR (Not Detect) Adenovirus (PCR) (Not Detect) B. pertussis DNA (PCR) (Not Detect) B.parapertussis DNA PCR (Not Detect) Kirti albicans (PCR) (Not Detect) C. glabrata (PCR) (Not Detect) C. krusei (PCR) (Not Detect) C. parapsilosis (PCR) (Not Detect) C. tropicalis (PCR) (Not Detect) Coronavirus OC43 (PCR) (Not Detect) Coronavirus HKU1 (PCR) (Not Detect) Coronavirus 229E (PCR) (Not Detect) Coronavirus NL63 (PCR) (Not Detect) Enterobacteriac sp PCR (Not Detect) E. cloacae complex PCR (Not Detect) Enterococcus sp PCR (Not Detect) E. coli (PCR) (Not Detect) H. influenzae (PCR) (Not Detect) Herpes Simplex Source HSV I (Not Detect) HSV II (Not Detect) Human Metapneumovir PCR (Not Detect) Influenza A (H1) PCR (Not Detect) Influ A (H1N1/09) PCR (Not Detect) Influenza A (H3) PCR (Not Detect) Influenza A Untype (PCR) (Not Detect) Influenza Type B (PCR) (Not Detect) Klebsiella oxytoca PCR (Not Detect) Klebsiella pneumoniae (Not Detect) List. monocytogenes PCR (Not Detect) M.pneumoniae DNA (PCR) (Not Detect) N. meningitidis (PCR) (Not Detect) Parainfluenza 1 (PCR) (Not Detect) Parainfluenza 2 (PCR) (Not Detect) Parainfluenza 3 (PCR) (Not Detect) Parainfluenza 4 (PCR) (Not Detect) Proteus species (PCR) (Not Detect) RSV (PCR) (Not Detect) Entero/Rhino (PCR) (Not Detect) Serratia marcescens PCR (Not Detect) Staphylococcus sp PCR (Not Detect) Staph aureus (PCR) (Not Detect) mecA-Methicil Res Gene (Not Detect) Streptococcus sp PCR (Not Detect) Group A Strep DNA (Not Detect) Group B Strep (PCR) (Not Detect) Strep pneumoniae (PCR) (Not Detect) P. aeruginosa (PCR) (Not Detect) Ivory/B-Vanco Res Genes (Not Detect) KPC (blaKPC) Detect PCR (Not Detect) - Impressions Impressions Chest X-Ray 04/21/18 09:37 IMPRESSION: Moderate-sized pleural effusion seen on the lateral radiograph, possibly bilaterally. Bibasilar atelectasis. Mild pulmonary edema. D/ / Elsy Ramos MD / Elsy Ramos MD Interpreting Provider: Elsy Ramos MD Exam - Constitutional Vitals: Temp Pulse Resp BP Pulse Ox 100.3 F H 93 18 108/56 94 04/22/18 07:53 04/22/18 07:53 04/22/18 07:53 04/22/18 07:53 04/22/18 07:53 General appearance: average body habitus, cooperative, no acute distress - Head Head exam: Present: atraumatic, normal inspection, normocephalic - Eye Eye exam: Present: EOMI, normal appearance, PERRL Pupils: Present: normal accommodation Additional comments: No subconjunctival hemorrhage noted. - ENT ENT exam: Present: mucous membranes moist - Neck Neck exam: Present: normal inspection - Respiratory Respiratory exam: Present: CTAB. Absent: rales, respiratory distress, rhonchi, wheezes - Cardiovascular Cardiovascular exam: Present: RRR, +S1, +S2 - GI/Abdominal GI/Abdominal exam: Present: normal bowel sounds, soft. Absent: distended, tenderness Additional comments: Donohue catheter remains patent draining clear yellow urine. - Extremities Exam Extremities exam: Present: pedal edema (1+ BLE), tenderness (Bilateral knees). Absent: normal inspection (Right knee surgical sites with steri-strips intact and sutures noted. No erythema, warmth, or drainage noted. Right knee remains mildly edematous and tender to palpation. Left knee dressing C/D/I.) - Back Exam Additional comments: Deferred per patient request. - Neurological Exam Neurological exam: Present: alert, oriented X3, no focal deficits - Psychiatric Psychiatric exam: Present: normal affect, normal mood - Skin Skin exam: Present: dry, intact, normal color, warm Additional comments: No endocarditis stigmata noted. Consult Discharge Plan - Plan Referrals: Misael Lopez MD [Non-Partnered Physician] - (Patient is going to rehab no PCP appointment needed) - Attending Attestation I examined this patient and my medical decision-making was reviewed with the Resident Physician. I agree with the documented findings, disposition and rupinder tment plan as described except to the extent set forth below.
[2018-04-22] MEDS ORDERED: MOM Conc 10 ML UD.LIQ PO ONE ×2 (11:30→11:45)
--- NOTE | 2018-04-22 11:47 | Palliative - Consult Note ---
<Erin Bergman - Last Filed: 04/22/18 14:44> Date of Encounter: 04/22/18 Time of Encounter: 10:15 - Assessment and Plan (1) Goals of care, counseling/discussion Current Visit: Yes Status: Acute Assessment and plan: Had a discussion with Ms. Mckeon and her sons, Chester and Nelson about goals of care and code status. She and the sons were educated about the different code statuses and her son, Chester noted they had a family meeting and decided she would not want chest compressions. The patient and the family is fine with eletrical shocking in case of cardiac arrest. They would like to continue antibiotic regimen for the bacteremia and receive pain management. Additionally, we educated the family and the patient about medical power of workers compensation attorney. She does not currently have a medical power of workers compensation attorney and we informed them more about the duties of the medical power of workers compensation attorney and were given a packet explaining in more detail what a medical power of workers compensation attorney is. Lastly, we discussed future medical goals in terms of the extents of treatments she would want from her future hospital admissions. They were told she did not have to make any decisions at this moment but something they should think about and have a family discussion. Additionally they were given a packet that better explained goals of care. Currently she would like to be DNR-CCA and continue treating the infection and receive pain management. (2) Pain Current Visit: Yes Status: Acute Assessment and plan: Complaining of ongoing back pain and knee pain. She has a lidocaine patch on her back and the right knee. She has consistently required the oxycodone and continues to have breakthrough pain. She is also currently on scheduled tramadol once a day but has been changed to BID tramadol and Q4HR PRN oxycodone for severe and moderate pain control. She needs to receive pain medication prior to her physical therapy sessions. (3) Constipation Current Visit: Yes Status: Acute Assessment and plan: Likely secondary to poor oral intake and opiod use. Last Bowel movement was on 04/16/18. She has not been consuming much solid food. Additionally she is on op iods for her pain management and she is not moving. All of these together are contributing to lack of of a bowel movement. She is on scheduled senna plus but still has not had a bowel movement. Gave her one time dose of milk of magnesium today. Continue to monitor. Qualifiers: Qualified Code(s): K59.01 - Slow transit constipation (4) Sepsis Current Visit: Yes Status: Resolved Assessment and plan: Currently on antibiotics, being managed by primary Qualifiers: Sepsis type: sepsis due to unspecified organism Qualified Code(s): A41.9 - Sepsis, unspecified organism (5) Atrial fibrillation with RVR Current Visit: Yes Status: Resolved Assessment and plan: Being managed by primary. Eliquis restarted today. (6) Bacteremia Current Visit: Yes Status: Acute Assessment and plan: Bacteremia secondary to septic knee. Undergone arthroscopes for knee debribement. Currently on antibiotics. All blood cultures so far have been po sitive. Last blood culture was on 04/19 and it was positive for MRSA. Being managed by primary and ID. (7) Shoulder subluxation, left Current Visit: Yes Status: Acute Assessment and plan: Left should subluxation at admission. Qualifiers: Encounter type: initial encounter Qualified Code(s): S43.002A - Unspecified subluxation of left shoulder joint, initial encounter (8) Arthritis of right knee Current Visit: Yes Status: Acute Assessment and plan: Chronic arthritis of the right knee. Noted to have recent knee injection outpatient prior to admission. Currently septic knee with recent arthroscopy of the knee. Patient noted she would like to restart her home vitamins for arthritic knee. (9) Deep venous thrombosis of left upper extremity Current Visit: Yes Status: Acute Assessment and plan: Had subluxation of left arm during presentation. She was found to be in a fib a few days after admission. She was on heparin drip but heparin was stopped due to anemia. On 04/14 she was found to have a DVT of the left arm. Currently in severe left arm pain which worsens with movement. Being managed by primary. Eliquis restarted today by primary team. Qualifiers: Affected thrombotic vein of extremity: brachial Chronicity: acute Qualified Code(s): I82.622 - Acute embolism and thrombosis of deep veins of left upper extremity Palliative-CN HPI - Data of Consult Requesting Physician: Joseph Arciniega MD Primary Care Provider: PCP NONE - Consult Narrative History of present illness: Ms. Mckeon is a 77 year old female who presented to the ED on 04/06/18 complaining of severe left shoulder and right knee pain. She had history of arthritis prior to presentation. In the ER imaging showed left shoulder join subluxation and right knee arthritis. On 04/09 she was found to have MRSA bacteremia secondary to right septic joint. She underwent arthoscopies. Additionally she was found to have a fib with RVR. Heparin was started but was later discontinued as she was found to be anemic. On 04/14 she sustained a DVT in the left brachial and radial veins of the LUE. She also developed pnenumonia. ID has been following her and she has been treated with antibiotics for the pneumonia as well as ongoing bacteremia. Today is day 16 in the hospital. All her blood cultures have been positive for MRSA. Her most recent blood culture was on 04/19 and it was positive for MRSA. Pending blood cultures from 04/22/18. Today Ms. Mckeon is in bed and had just completed physical therapy. She was complaining of a lot of back pain. She also noted both her knees hurt. She noted her last bowel movement was 6 days ago. But her son noted she has not been having much oral intake apart from juice and ensure. She denied abdominal pain. She also denied fever, chills, nausea, emesis, shortness of breath or chest pain. CC: Joseph Arciniega MD - Time Spent with Patient Time: Total time spent is greater than 50% in coordination of care (as documented) at patient's floor/unit and/or counseling patient: Past Med Surg Social Fam HX - Past Medical History Medical history: arthritis, asthma, diabetes, hypertension Psychiatric history: no psych history - Past Surgical History Additional surgical history: skin cancer removed - Social History Smoking Status: Never smoker Smokeless Tobacco Status: No Alcohol use: none Drug use: none - Family History Mother Living Status: Age at : 93 Cause of : failure to thrive Father Living Status: Age at : 94 Cause of : failure to thrive Medications and Allergies Albuterol Sulfate [Ventolin Hfa] 2 puff IH Q4H PRN 04/06/18 [History] Budesonide/Formoterol 160/4.5 [Symbicort 160/4.5] 2 puff PO BID 04/06/18 [History] Esomeprazole Magnesium [Nexium] 40 mg PO DAILY 04/06/18 [History] Insulin ASPART [NovoLOG] 0 unit SQ AD 04/06/18 [History] Lisinopril/Hydrochlorothiazide [Zestoretic 20-25 mg Tablet] 1 tab PO DAILY 04/06/18 [History] Meloxicam 15 mg PO DAILY 04/06/18 [History] Methyl Salicylate/Menthol [Salonpas Patch] 1 patch TP DAILY PRN MDD N 04/06/18 [History] Montelukast [Singulair] 10 mg PO DAILY 04/06/18 [History] Multivitamin [One Daily Essential] 1 tab PO DAILY 04/06/18 [History] Tramadol HCl [Ultram] 50 mg PO DAILY 04/06/18 [History] Cyclobenzaprine [Flexeril] 5 mg PO BID PRN tablet 04/21/18 [Rx] Ferrous Sulfate 325 mg PO DAILY@0900 tablet 04/21/18 [Rx] Furosemide [Lasix] 20 mg IVP BIDDIURETIC vial 04/21/18 [Rx] MOM Conc [MILK OF MAGNESIA conc] 5 ml PO HS PRN ud.liq 04/21/18 [Rx] Promethazine [Phenergan] 6.25 mg IVP Q5MIN PRN vial 04/21/18 [Rx] Stomatitis Mixture 5 ml PO QID mls 04/21/18 [Rx] Temazepam [Restoril] 15 mg PO HS PRN capsule 04/21/18 [Rx] Allergy/AdvReac Type Severity Reaction Status Date / Time No Known Allergies Allergy Verified 04/06/18 10:17 - Constitutional Constitutional ROS PAL: no chills, no fever(s) - EENT Eyes: no change in vision Ears, nose, mouth, throat: no dry mouth, no dysphagia, no neck pain - Cardiovascular Cardiovascular ROS: leg edema (+1 pitting edema bilateral lower extremities), no chest pain, no palpitations - Respiratory Respiratory: no cough, no dyspnea, no dyspnea on exertion, no wheezing - Gastrointestinal Gastrointestinal: no abdominal pain, no diarrhea, no nausea, no vomiting - Musculoskeletal Musculoskeletal ROS IM: back pain, other (bilateral leg pain), no muscle wea kness - Neurological Neurological ROS: no headache(s), no numbness, no paresthesias, no weakness - Psychiatric Psychiatric general PM: no anxiety, no confusion Palliative Care-Exam - Constitutional Vitals: Temp Pulse Resp BP Pulse Ox 100.3 F H 93 18 108/56 94 04/22/18 07:53 04/22/18 07:53 04/22/18 07:53 04/22/18 07:53 04/22/18 07:53 General appearance: Present: cooperative, no acute distress. Absent: febrile - Head Head Exam: Present: atraumatic, normocephalic - Eye Eye exam: Present: EOMI, normal appearance. Absent: conjunctival injection, scleral icterus - ENT ENT exam: Present: mucous membranes moist, normal exam - Expanded ENT Exam Mouth Exam: Present: moist, normal external inspection - Neck Neck exam: Present: normal inspection. Absent: tenderness - Respiratory Respiratory exam: Absent: stridor, wheezes Additional comments: Decreased breath sounds at bilateral lower bases - Cardiovascular Cardiovascular exam: Present: RRR, +S1, +S2 - GI/Abdominal Exam GI/Abdominal exam: Present: diminished bowel sounds, soft. Absent: guarding, tenderness - Extremities Exam Extremities exam: Present: pedal edema (+1 pitting edema bilateral lower extermities_) - Expanded Lower Extremities Exam Knee exam: Present: swelling (bilateral knees; left knee wrapped), tenderness (bilateral knees ). Absent: erythema - Neurological Exam Neurological exam: Present: alert, oriented X3, no focal deficits - Psychiatric Psychiatric exam: Absent: anxious, depressed - Skin Skin exam: Present: dry, intact, warm. Absent: erythema Internal Medicine - CN: Reslt - Labs CBC & Chem 7: 04/22/18 04:41 04/22/18 04:41 Labs: Short CBC 04/21/18 04/22/18 Range/Units 21:30 04:41 WBC 8.8 (4.3-11.1) K/mcL Hgb 8.5 L 8.7 L (11.5-15.4) g/dL Hct 25.6 L 26.1 L (35.3-44.9) % Plt Count 757 H (140-400) K/mcL Neutrophils # 6.9 (1.6-8.9) K/mcL BMP 04/22/18 04/22/18 04:41 04:41 Sodium 133 L 132 L Potassium 3.4 L 3.4 L Chloride 94 L 95 L Carbon Dioxide 32 H 32 H BUN 12 12 Creatinine 0.35 L 0.37 L Glucose 85 85 Calcium 7.9 L 8.1 L Liver Function 04/22/18 Range/Units 04:41 Total Bilirubin 0.5 (0.3-1.0) mg/dL AST 22 (13-39) Units/L ALT 11 (7-52) Units/L Alkaline Phosphatase 163 H (34-104) Units/L Albumin 1.8 L (3.5-5.7) g/dL - ABG Interpretation ABG results: PT/INR, D-dimer PT 13.1 Seconds (9.4-12.1) H 04/19/18 05:05 D-Dimer 5840 ng/mLFEU (0-500) H 04/10/18 11:00 - Impressions Impressions Chest X-Ray 04/21/18 09:37 IMPRESSION: Moderate-sized pleural effusion seen on the lateral radiograph, possibly bilaterally. Bibasilar atelectasis. Mild pulmonary edema. D/ / Elsy Ramos MD / Elsy Ramos MD Interpreting Provider: Elsy Ramos MD Consult Discharge Plan - Plan Referrals: Misael Lopez MD [Non-Partnered Physician] - (Patient is going to rehab no PCP appointment needed) Palliative Quality Palliative Quality: Screen for Code Status: Yes, Screen for Goals of Care: Yes, Screen for Pain: Yes, If Pain Regimen Started, Initiate Bowel Regimen: Yes, Screen for Nausea/Vomitting: Yes Code Status: 04/06/18 14:34 Resuscitation Status: Active [RES] Routine Comment: Resuscitation Status: Full Code 04/22/18 08:52 Resuscitation Status: Active [RES] Routine Comment: Resuscitation Status: DNR-Comfort Care-Arrest <ZhannaDoreen Eugeneelsie - Last Filed: 04/22/18 15:32> Palliative-CN HPI - Data of Consult Requesting Physician: Joseph Arciniega MD Primary Care Provider: PCP NONE - Consult Narrative History of present illness: Ms. Mckeon is a 77 year old female CC: Joseph Arciniega MD - Time Spent with Patient Time: Total time spent is greater than 50% in coordination of care (as documented) at patient's floor/unit and/or counseling patient: Palliative Care-Exam - Constitutional Vitals: Temp Pulse Resp BP Pulse Ox 98.9 F 86 18 110/70 98 04/22/18 12:11 04/22/18 12:11 04/22/18 12:11 04/22/18 12:11 04/22/18 12:11 Internal Medicine - CN: Reslt - Labs CBC & Chem 7: 04/22/18 04:41 04/22/18 04:41 Labs: Short CBC 04/21/18 04/22/18 Range/Units 21:30 04:41 WBC 8.8 (4.3-11.1) K/mcL Hgb 8.5 L 8.7 L (11.5-15.4) g/dL Hct 25.6 L 26.1 L (35.3-44.9) % Plt Count 757 H (140-400) K/mcL Neutrophils # 6.9 (1.6-8.9) K/mcL BMP 04/22/18 04/22/18 04:41 04:41 Sodium 133 L 132 L Potassium 3.4 L 3.4 L Chloride 94 L 95 L Carbon Dioxide 32 H 32 H BUN 12 12 Creatinine 0.35 L 0.37 L Glucose 85 85 Calcium 7.9 L 8.1 L Liver Function 04/22/18 Range/Units 04:41 Total Bilirubin 0.5 (0.3-1.0) mg/dL AST 22 (13-39) Units/L ALT 11 (7-52) Units/L Alkaline Phosphatase 163 H (34-104) Units/L Albumin 1.8 L (3.5-5.7) g/dL - ABG Interpretation ABG results: PT/INR, D-dimer PT 13.1 Seconds (9.4-12.1) H 04/19/18 05:05 D-Dimer 5840 ng/mLFEU (0-500) H 04/10/18 11:00 - Attending Attestation I performed a history and physical examination of the patient and discussed his management with the resident. I reviewed the residents note and agree with the documented findings and plan of care, except as follow: Made with patient at the bedside, I will with son Chester Whyte. Patient was complaining of a lot of pain mainly in her lower back and knees. Patient had just finished physical therapy and did not receive any pre-medication. Discussed current medical condition, trajectory of illness, treatment options and prognosis. Patient and family are aware of that pt is very sick, but they are still hopeful that with treatment and rehabilitation she may be able to re turn to her previous baseline. As the patient and family the before the current illness patient was able to walk and do all her ADLs without help, PPS 80%. Discussed goals of care and CODE STATUS. Patient as per family, patient's children had a meeting earlier this week and they had decided that patient should be DNR CC arrest. As per goals of care, patient wants to have a discussion with all of her 7 children. Patient was given handouts for the conversation Starter Kit, as well as medical power of workers compensation attorney form and how to to designated power of workers compensation attorney. All questions were answered to patient and family's satisfaction. DNR state form was drafted. Pain management: patient does not seem well managed with her current regimen, will increase tramadol frequency to 50 mg BID, along with oxycodone prn and lidocaine patch. Please premedicate pt before PT. Palliative care will follow. Palliative Quality Code Status: 04/06/18 14:34 Resuscitation Status: Active [RES] Routine Comment: Resuscitation Status: Full Code 04/22/18 08:52 Resuscitation Status: Active [RES] Routine Comment: Resuscitation Status: DNR-Comfort Care-Arrest
[2018-04-22] MEDS: Apixaban 5 MG TABLET PO SCH ×2 (13:05→19:41)
[2018-04-22] MEDS ORDERED: Insulin LISPRO 300 UNITS/3 ML VIAL SQ SCH ×2 (13:49)
[2018-04-22] MEDS: DAPTOmycin 500 MG in 0.9 % Sodium Chloride 100 ML IVPB SCH (18:09)
[2018-04-22 18:52] VITALS: BP 105/56
[2018-04-22] MEDS ORDERED: Insulin DETEMIR 100 UNIT/ML X5UNITS SQ SCH (21:00)
[2018-04-22] MEDS ORDERED: Aminoglycoside Consult 1 EACH MC ONE (21:39)
[2018-04-23 21:09] LABS: Acinetobacter baumannii by PCR Not Detected (Not Detect); Candida albicans by PCR Not Detected (Not Detect); Candida glabrata by PCR Not Detected (Not Detect); Candida krusei by PCR Not Detected (Not Detect); Candida parapsilosis by PCR Not Detected (Not Detect); Candida tropicalis by PCR Not Detected (Not Detect); Enterobacter cloacae Cmplx PCR Not Detected (Not Detect); Enterobacteriaceae by PCR Not Detected (Not Detect); Enterococcus by PCR Not Detected (Not Detect); Escherichia coli by PCR Not Detected (Not Detect); Klebsiella oxytoca by PCR Not Detected (Not Detect); Klebsiella pneumoniae by PCR Not Detected (Not Detect); Proteus by PCR Not Detected (Not Detect); Pseudomonas aeruginosa by PCR Not Detected (Not Detect); Serratia marcescens by PCR Not Detected (Not Detect); Staphylococcus aureus by PCR DETECTED (Not Detect); Staphylococcus by PCR DETECTED (Not Detect); Streptococcus agalactiae(B)PCR Not Detected (Not Detect); Streptococcus by PCR Not Detected (Not Detect); Streptococcus pneumoniae PCR Not Detected (Not Detect); Streptococcus pyogenes (A) PCR Not Detected (Not Detect); mecA Methicillin-Resist Gene DETECTED (Not Detect)
[2018-04-24 08:20] LABS: Acinetobacter baumannii by PCR Not Detected (Not Detect); Candida albicans by PCR Not Detected (Not Detect); Candida glabrata by PCR Not Detected (Not Detect); Candida krusei by PCR Not Detected (Not Detect); Candida parapsilosis by PCR Not Detected (Not Detect); Candida tropicalis by PCR Not Detected (Not Detect); Enterobacter cloacae Cmplx PCR Not Detected (Not Detect); Enterobacteriaceae by PCR Not Detected (Not Detect); Enterococcus by PCR Not Detected (Not Detect); Escherichia coli by PCR Not Detected (Not Detect); Klebsiella oxytoca by PCR Not Detected (Not Detect); Klebsiella pneumoniae by PCR Not Detected (Not Detect); Proteus by PCR Not Detected (Not Detect); Pseudomonas aeruginosa by PCR Not Detected (Not Detect); Serratia marcescens by PCR Not Detected (Not Detect); Staphylococcus aureus by PCR DETECTED (Not Detect); Staphylococcus by PCR DETECTED (Not Detect); Streptococcus agalactiae(B)PCR Not Detected (Not Detect); Streptococcus by PCR Not Detected (Not Detect); Streptococcus pneumoniae PCR Not Detected (Not Detect); Streptococcus pyogenes (A) PCR Not Detected (Not Detect); mecA Methicillin-Resist Gene DETECTED (Not Detect)
== END 2018-04-22 21:40 | disposition short-term general hospital (02) | DRG 500 ==
LOC: EMEROOARM 10:05 → 3BNU 10:05 → SUATTDRO 04-09 16:10 → 2NNU 04-10 12:06
PROVIDERS: ADMIT Internal Medicine; ATTEND Student in an Organized Health Care Education/Training Program